=== PATIENT | male | born 1975 ===

== ENCOUNTER 2017-02-03 09:53 | Day surgery (SDC) | payer BC, OTHER ==
[2017-01-31 09:07] VITALS: BMI 34.0
[~2017-02-03 09:53] MED LIST: SODIUM CHLORIDE 0.9% 1,000 ML IV SCH
[2017-02-03 10:22] LABS: Glucose,Whole Blood 100 mg/dL (75-99)
[2017-02-03] MEDS ORDERED: SODIUM CHLORIDE 0.9% 500 ML IV ONE (10:54)
--- NOTE | 2017-02-03 11:52 | P.PCN ---
Preoperative Diagnosis: Twelve-lead ECG report Sinus mechanism heart rates 87 beats a minute normal [place] narrow QRS normal ST segments Tilt table test report Baseline blood pressure 157/80 mmHg Baseline heart rate 87 beats a minute patient was tilted upright at an angle of 70 per protocol there was a drop in blood pressure 207/72 mmHg and thereafter the blood pressure remained in the 120s. No syncope no increase in heart rate When he was laid supine his blood pressure increased by about 10 systolic points Impression Mild asymptomatic orthostatic hypotension syndrome consistent with his clinical symptoms Vision remained asymptomatic during the tilt table test Underlying diabetes, on an insulin pump, type I Chronic kidney disease stage V on peritoneal dialysis Anesthesia: none Disposition: same day
== END 2017-02-03 12:06 | disposition home or self-care (01) ==
LOC: CATHEP 09:53
PROVIDERS: ATTEND Internal Medicine Clinical Cardiac Electrophysiology
DX: I95.1 Orthostatic hypotension (principal); E10.22 Type 1 diabetes mellitus with diabetic chronic kidney disease; I12.0 Hypertensive chronic kidney disease with stage 5 chronic kidney disease or end stage renal disease; N18.6 End stage renal disease; E78.5 Hyperlipidemia, unspecified; G90.1 Familial dysautonomia [Riley-Day]; Z99.2 Dependence on renal dialysis; Z79.899 Other long term (current) drug therapy; Z79.4 Long term (current) use of insulin; Z96.41 Presence of insulin pump (external) (internal)
CPT/HCPCS: 93005; 93660

== ENCOUNTER 2020-10-01 14:19 | Inpatient (IN) | payer MEDICARE, OTHER ==
[2020-10-01 14:38] LABS: Glucose,Whole Blood 489 mg/dL (75-99)
--- NOTE | 2020-10-01 15:30 | XR ---
EXAMINATION TYPE: XR chest 2V DATE OF EXAM: 10/01/2020 COMPARISON: NONE HISTORY: Shortness of breath. TECHNIQUE: Frontal and lateral views of the chest are obtained. FINDINGS: There is a right IJ dialysis catheter with tip overlying the SVC/right atrial junction. The re is mild interstitial edema with associated hazy opacity. No pleural effusion, or pneumothorax seen . The cardiac silhouette size is mildly enlarged. The osseous structures are intact. IMPRESSION: Mild interstitial edema.
[2020-10-01] MEDS ORDERED: HYDROmorphone 0.5 MG/0.5 ML SYRINGE IVP STA ×2 (15:32→17:31)
[2020-10-01] MEDS ORDERED: INSULIN REGULAR 100 UNIT/ML VIAL SQ ONE (15:43)
--- NOTE | 2020-10-01 15:45 | ED ---
Abdominal Pain HPI - General Chief Complaint: Abdominal Pain Stated Complaint: abd pain, +Covid Time Seen by Provider: 10/01/20 14:46 Source: patient Mode of arrival: ambulatory Limitations: no limitations - History of Present Illness Initial Comments: 45-year-old dialysis patient (produces urine) with diabetes and recently diagnosed with [place] 19 who has been noncompliant the last 3 days with dialysis presenting today for cc of not feeling well, abdominal pain. Patient states that he tested positive for coag 19 last week he states initially was feeling okay now complaint of generalized body aches. Patient states she has had vomiting and upper abdominal pain. Patient states he could no longer tolerate that they'll pain and presented to the [facility] he states he was admitted but left against medical sales consultant he didn't think they knew what they were doing. patient denies chest pain, SOB. Patient denies headaches, visual changes or additional complaints. patient appears nontoxic on arrival. - Related Data Home Medications Medication Instructions Recorded Confirmed Atorvastatin [Lipitor] 40 mg PO HS 01/31/17 10/01/20 Cyclobenzaprine [Flexeril] 5 mg PO TID 01/31/17 10/01/20 Dialyvite 1 tab PO DAILY 01/31/17 10/01/20 Ergocalciferol [Vitamin D2] 50,000 unit PO Q14D 01/31/17 10/01/20 INSULIN LISPRO (For Pump) [humaLOG 0.01 units SQ-PUMP CONTINUOUS 01/31/17 10/01/20 (For Pump)] Magnesium Oxide [Mag-Ox] 400 mg PO DAILY 01/31/17 10/01/20 Midodrine [ProAmatine] 5 mg PO TID PRN 01/31/17 10/01/20 Omeprazole [PriLOSEC] 20 mg PO BID 01/31/17 10/01/20 Timolol [Betimol 0.5% Ophth Soln] 1 drop RIGHT EYE BID 01/31/17 10/01/20 Apixaban [Eliquis] 2.5 mg PO DAILY 10/01/20 10/01/20 Furosemide [Lasix] 80 mg PO BID 10/01/20 10/01/20 Heparin(Unknown Dose) 1 dose SQ Q48H 10/01/20 10/01/20 Pregabalin [Lyrica] 200 mg PO TID 10/01/20 10/01/20 amLODIPine [Norvasc] 2.5 mg PO DAILY 10/01/20 10/01/20 oxyCODONE-APAP 10-325MG [Percocet 1 tab PO Q4-6H PRN 10/01/20 10/01/20 10-325 mg] Allergies Allergy/AdvReac Type Severity Reaction Status Date / Time No Known Allergies Allergy Verified 10/01/20 17:29 Review of Systems ROS Statement: Those systems with pertinent positive or pertinent negative responses have been documented in the HPI. ROS Other: All systems not noted in ROS Statement are negative. Past Medical History Past Medical History: Diabetes Mellitus, Dialysis, GERD/Reflux, Hyperlipidemia, Renal Disease Additional Past Medical History / Comment(s): See Dr Freed H&P, peritoneal dialysis every night, constipation, anemia, kidney failure, History of Any Multi-Drug Resistant Organisms: None Reported Additional Past Surgical History / Comment(s): tom cataract, peritoneal dialysis catheter rt side, Past Anesthesia/Blood Transfusion Reactions: No Reported Reaction Past Psychological History: Anxiety Past Alcohol Use History: None Reported Past Drug Use History: None Reported - Past Family History Mother Family Medical History: Cancer General Exam - General Exam Comments Initial Comments: General: The patient is awake and alert Eye: +3 mm pupils are equal, round and reactive to light, extra-ocular movements are intact. No nystagmus. There is normal conjunctiva bilaterally. No signs of icterus. Ears, nose, mouth and throat: There are moist mucous membranes and no oral lesions. Neck: The neck is supple, there is no tenderness or JVD. Cardiovascular: There is a regular rate and rhythm. No murmur, rub or gallop is appreciated. Respiratory: Respirations are non-labored, breath sounds are equal. No wheezes, stridor. Occasional rhonchi, fine rales. Gastrointestinal: Soft, non-distended, epigastric tenderness to palpation of the abdomen, abdomen without masses or organomegaly noted. There is no rebound or guarding present. Musculoskeletal: Right BKA. Normal ROM, no tenderness. Strength 5/5. Sensation intact. Radial pulses equal bilaterally 2+. Neurological: A&O x 3. CN II-XII intact grossly, There are no obvious motor or sensory deficits. Coordination appears grossly intact. Speech is normal. Skin: Skin is warm and dry and no rashes or lesions are noted. Psychiatric: Cooperative, appropriate mood & affect, normal judgment. Limitations: no limitations Course Vital Signs 10/01/20 10/01/20 14:25 18:02 Temperature 97.9 F Pulse Rate 92 85 Respiratory 18 18 Rate Blood Pressure 107/72 137/80 O2 Sat by Pulse 98 97 Oximetry Medical Decision Making - Medical Decision Making Cr elevated. Electrolytes stable. Mild/moderate uremia. Pt does not appear confused. I discussed pt thinking it was april he states at times he feels off. no focal neurological deficits. mild/moderate fluid overload most likely secondary to noncompliance with dialysis. glucose elevated. BP stable. Lipase elevated with findings of pancreatitis on CT and epigastric pain, pt ordered NPO, GI on consult. Nephrology on consult pt will need dialysis in next 24 hours. Parvin Dominique agreeable to admission. As is patient for pancreatitis, mild uremia. - Lab Data Result diagrams: 10/01/20 16:16 10/01/20 16:16 Lab Results 10/01/20 10/01/20 10/01/20 Range/Units 14:36 15:34 16:16 WBC 15.1 H (3.8-10.6) k/uL RBC 3.82 L (4.30-5.90) m/uL Hgb 11.2 L (13.0-17.5) gm/dL Hct 35.4 L (39.0-53.0) % MCV 92.6 (80.0-100.0) fL MCH 29.3 (25.0-35.0) pg MCHC 31.7 (31.0-37.0) g/dL RDW 15.3 (11.5-15.5) % Plt Count 307 (150-450) k/uL MPV 8.8 Neutrophils % 90 % Lymphocytes % 4 % Monocytes % 4 % Eosinophils % 0 % Basophils % 1 % Neutrophils # 13.6 H (1.3-7.7) k/uL Lymphocytes # 0.6 L (1.0-4.8) k/uL Monocytes # 0.6 (0-1.0) k/uL Eosinophils # 0.1 (0-0.7) k/uL Basophils # 0.2 (0-0.2) k/uL Hypochromasia Slight PT (9.0-12.0) sec INR (<1.2) APTT (22.0-30.0) sec Sodium (137-145) mmol/L Potassium (3.5-5.1) mmol/L Chloride (98-107) mmol/L Carbon Dioxide (22-30) mmol/L Anion Gap mmol/L BUN (9-20) mg/dL Creatinine (0.66-1.25) mg/dL Est GFR (CKD-EPI)AfAm (>60 ml/min/1.73 sqM) Est GFR (CKD-EPI)NonAf (>60 ml/min/1.73 sqM) Glucose (74-99) mg/dL POC Glucose (mg/dL) 489 H (75-99) mg/dL POC Glu Nut Steamer ID Jacob Cavanaugh Calcium (8.4-10.2) mg/dL Magnesium (1.6-2.3) mg/dL Total Bilirubin (0.2-1.3) mg/dL AST (17-59) U/L ALT (4-49) U/L Alkaline Phosphatase (38-126) U/L Ammonia (<30) umol/L Troponin I (0.000-0.034) ng/mL Total Protein (6.3-8.2) g/dL Albumin (3.5-5.0) g/dL Lipase (23-300) U/L Urine Color Light Yellow Urine Appearance Clear (Clear) Urine pH 6.5 (5.0-8.0) Ur Specific [place] 1.009 (1.001-1.035) Urine Protein 2+ H (Negative) Urine Glucose (UA) 4+ H (Negative) Urine Ketones Negative (Negative) Urine Blood Small H (Negative) Urine Nitrite Negative (Negative) Urine Bilirubin Negative (Negative) Urine Urobilinogen <2.0 (<2.0) mg/dL Ur Leukocyte Esterase Small H (Negative) Urine RBC 7 H (0-5) /hpf Urine WBC 27 H (0-5) /hpf Hyaline Casts 1 (0-2) /lpf Urine Mucus Rare H (None) /hpf Urine Opiates Screen Not Detected (NotDetected) Ur Oxycodone Screen Detected H (NotDetected) Urine Methadone Screen Not Detected (NotDetected) Ur Propoxyphene Screen Not Detected (NotDetected) Ur Barbiturates Screen Not Detected (NotDetected) U Tricyclic Antidepress Not Detected (NotDetected) Ur Phencyclidine Scrn Not Detected (NotDetected) Ur Amphetamines Screen Not Detected (NotDetected) U Methamphetamines Scrn Not Detected (NotDetected) U Benzodiazepines Scrn Not Detected (NotDetected) Urine Cocaine Screen Not Detected (NotDetected) U Marijuana (THC) Screen Not Detected (NotDetected) 10/01/20 10/01/20 10/01/20 Range/Units 16:16 16:16 16:16 WBC (3.8-10.6) k/uL RBC (4.30-5.90) m/uL Hgb (13.0-17.5) gm/dL Hct (39.0-53.0) % MCV (80.0-100.0) fL MCH (25.0-35.0) pg MCHC (31.0-37.0) g/dL RDW (11.5-15.5) % Plt Count (150-450) k/uL MPV Neutrophils % % Lymphocytes % % Monocytes % % Eosinophils % % Basophils % % Neutrophils # (1.3-7.7) k/uL Lymphocytes # (1.0-4.8) k/uL Monocytes # (0-1.0) k/uL Eosinophils # (0-0.7) k/uL Basophils # (0-0.2) k/uL Hypochromasia PT 12.7 H (9.0-12.0) sec INR 1.3 H (<1.2) APTT 29.4 (22.0-30.0) sec Sodium 132 L (137-145) mmol/L Potassium 3.7 (3.5-5.1) mmol/L Chloride 93 L (98-107) mmol/L Carbon Dioxide 24 (22-30) mmol/L Anion Gap 15 mmol/L BUN 54 H (9-20) mg/dL Creatinine 9.22 H* (0.66-1.25) mg/dL Est GFR (CKD-EPI)AfAm 7 (>60 ml/min/1.73 sqM) Est GFR (CKD-EPI)NonAf 6 (>60 ml/min/1.73 sqM) Glucose 451 H (74-99) mg/dL POC Glucose (mg/dL) (75-99) mg/dL POC Glu Nut Steamer ID Calcium 7.9 L (8.4-10.2) mg/dL Magnesium 2.0 (1.6-2.3) mg/dL Total Bilirubin 0.5 (0.2-1.3) mg/dL AST 18 (17-59) U/L ALT 17 (4-49) U/L Alkaline Phosphatase 102 (38-126) U/L Ammonia <9 (<30) umol/L Troponin I (0.000-0.034) ng/mL Total Protein 6.5 (6.3-8.2) g/dL Albumin 3.3 L (3.5-5.0) g/dL Lipase 419 H (23-300) U/L Urine Color Urine Appearance (Clear) Urine pH (5.0-8.0) Ur Specific [place] (1.001-1.035) Urine Protein (Negative) Urine Glucose (UA) (Negative) Urine Ketones (Negative) Urine Blood (Negative) Urine Nitrite (Negative) Urine Bilirubin (Negative) Urine Urobilinogen (<2.0) mg/dL Ur Leukocyte Esterase (Negative) Urine RBC (0-5) /hpf Urine WBC (0-5) /hpf Hyaline Casts (0-2) /lpf Urine Mucus (None) /hpf Urine Opiates Screen (NotDetected) Ur Oxycodone Screen (NotDetected) Urine Methadone Screen (NotDetected) Ur Propoxyphene Screen (NotDetected) Ur Barbiturates Screen (NotDetected) U Tricyclic Antidepress (NotDetected) Ur Phencyclidine Scrn (NotDetected) Ur Amphetamines Screen (NotDetected) U Methamphetamines Scrn (NotDetected) U Benzodiazepines Scrn (NotDetected) Urine Cocaine Screen (NotDetected) U Marijuana (THC) Screen (NotDetected) 10/01/20 Range/Units 16:16 WBC (3.8-10.6) k/uL RBC (4.30-5.90) m/uL Hgb (13.0-17.5) gm/dL Hct (39.0-53.0) % MCV (80.0-100.0) fL MCH (25.0-35.0) pg MCHC (31.0-37.0) g/dL RDW (11.5-15.5) % Plt Count (150-450) k/uL MPV Neutrophils % % Lymphocytes % % Monocytes % % Eosinophils % % Basophils % % Neutrophils # (1.3-7.7) k/uL Lymphocytes # (1.0-4.8) k/uL Monocytes # (0-1.0) k/uL Eosinophils # (0-0.7) k/uL Basophils # (0-0.2) k/uL Hypochromasia PT (9.0-12.0) sec INR (<1.2) APTT (22.0-30.0) sec Sodium (137-145) mmol/L Potassium (3.5-5.1) mmol/L Chloride (98-107) mmol/L Carbon Dioxide (22-30) mmol/L Anion Gap mmol/L BUN (9-20) mg/dL Creatinine (0.66-1.25) mg/dL Est GFR (CKD-EPI)AfAm (>60 ml/min/1.73 sqM) Est GFR (CKD-EPI)NonAf (>60 ml/min/1.73 sqM) Glucose (74-99) mg/dL POC Glucose (mg/dL) (75-99) mg/dL POC Glu Nut Steamer ID Calcium (8.4-10.2) mg/dL Magnesium (1.6-2.3) mg/dL Total Bilirubin (0.2-1.3) mg/dL AST (17-59) U/L ALT (4-49) U/L Alkaline Phosphatase (38-126) U/L Ammonia (<30) umol/L Troponin I <0.012 (0.000-0.034) ng/mL Total Protein (6.3-8.2) g/dL Albumin (3.5-5.0) g/dL Lipase (23-300) U/L Urine Color Urine Appearance (Clear) Urine pH (5.0-8.0) Ur Specific [place] (1.001-1.035) Urine Protein (Negative) Urine Glucose (UA) (Negative) Urine Ketones (Negative) Urine Blood (Negative) Urine Nitrite (Negative) Urine Bilirubin (Negative) Urine Urobilinogen (<2.0) mg/dL Ur Leukocyte Esterase (Negative) Urine RBC (0-5) /hpf Urine WBC (0-5) /hpf Hyaline Casts (0-2) /lpf Urine Mucus (None) /hpf Urine Opiates Screen (NotDetected) Ur Oxycodone Screen (NotDetected) Urine Methadone Screen (NotDetected) Ur Propoxyphene Screen (NotDetected) Ur Barbiturates Screen (NotDetected) U Tricyclic Antidepress (NotDetected) Ur Phencyclidine Scrn (NotDetected) Ur Amphetamines Screen (NotDetected) U Methamphetamines Scrn (NotDetected) U Benzodiazepines Scrn (NotDetected) Urine Cocaine Screen (NotDetected) U Marijuana (THC) Screen (NotDetected) - EKG Data EKG Comments: Overall there is artifact however this appears to be normal sinus prolonged QT is present, no obvious ST elevation or depression. Ventricular rate 86 bpm, NH interval 132 ms, QR station 70 ms, QT/QTC 404/483ms Disposition Clinical Impression: Pancreatitis, Elevated BUN Disposition: ADMITTED IP TO THIS [facility] Condition: Stable Is patient prescribed a controlled substance at d/c from ED?: No Time of Disposition: 18:25 Decision to Admit Reason: Admit from EC Decision Date: 10/01/20 Decision Time: 18:25
[2020-10-01] MEDS: SODIUM CHLORIDE 0.9% 1,000 ML IV SCH (15:59)
[2020-10-01 16:27] LABS: Appearance,Urine Clear (Clear); Bilirubin,Urine Negative (Negative); Blood,Urine Small (Negative); Color,Urine Light Yellow; Glucose,Urine (UA) 4+ (Negative); Hyaline Casts,Urine 1 /lpf (0-2); Ketones,Urine Negative (Negative); Leukocyte Esterase,Urine Small (Negative); Mucus,Urine Rare /hpf; Nitrite,Urine Negative (Negative); PH, Urine 6.5 (5.0-8.0); Protein,Urine 2+ (Negative); RBC,Urine 7 /hpf (0-5); Specific Gravity,Urine 1.009 (1.001-1.035); Urobilinogen,Urine <2.0 mg/dL (<2.0); WBC,Urine 27 /hpf (0-5)
[2020-10-01 16:36] LABS: Amphetamine Screen,Urine Not Detected (NotDetected); Barbiturate Screen,Urine Not Detected (NotDetected); Benzodiazepines Screen,Urine Not Detected (NotDetected); Cocaine Screen,Urine Not Detected (NotDetected); Methadone Screen, Urine Not Detected (NotDetected); Opiate Screen,Urine Not Detected (NotDetected); Oxycodone Screen, Urine Detected (NotDetected); Phencyclidine Screen,Urine Not Detected (NotDetected); Tricyclic Antidepressant,Urine Not Detected (NotDetected); Urn Cannabinoid Scrn Not Detected (NotDetected)
[2020-10-01 16:38] LABS: Basophils # (A) 0.2 k/uL (0-0.2); Basophils % (A) 1 %; Eosinophils # (A) 0.1 k/uL (0-0.7); Eosinophils % (A) 0 %; HCT 35.4 % (39.0-53.0); HGB 11.2 gm/dL (13.0-17.5); Hypochromasia Slight; Lymphocytes # (A) 0.6 k/uL (1.0-4.8); Lymphocytes % (A) 4 %; MCH 29.3 pg (25.0-35.0); MCHC 31.7 g/dL (31.0-37.0); MCV 92.6 fL (80.0-100.0); Mean Platelet Volume 8.8; Monocytes # (A) 0.6 k/uL (0-1.0); Monocytes % (A) 4 %; Neutrophils # (A) 13.6 k/uL (1.3-7.7); Neutrophils % (A) 90 %; Platelet Count 307 k/uL (150-450); RBC 3.82 m/uL (4.30-5.90); RDW 15.3 % (11.5-15.5); WBC 15.1 k/uL (3.8-10.6)
[2020-10-01 16:43] LABS: INR 1.3 (<1.2); Partial Thromboplastin Time 29.4 sec (22.0-30.0); Prothrombin Time 12.7 sec (9.0-12.0)
[2020-10-01 16:53] LABS: Albumin 3.3 g/dL (3.5-5.0); Calcium 7.9 mg/dL (8.4-10.2); Potassium 3.7 mmol/L (3.5-5.1); Total Bilirubin 0.5 mg/dL (0.2-1.3); Total Protein 6.5 g/dL (6.3-8.2)
--- NOTE | 2020-10-01 17:05 | CT ---
EXAMINATION TYPE: CT abdomen pelvis wo con DATE OF EXAM: 10/01/2020 COMPARISON: CT 11/09/2015. HISTORY: diffuse abd pain CT DLP: 831.9 mGycm Automated exposure control for dose reduction was used. TECHNIQUE: Helical acquisition of images was performed from the lung bases through the pelvis. FINDINGS: LUNG BASES: Diffuse moderate patchy opacities in the visualized lung bases. LIVER/GB: No significant abnormality is appreciated. PANCREAS: Mild to moderate peripancreatic fat stranding. No evidence of pancreatic necrosis. SPLEEN: No significant abnormality is seen. ADRENALS: No significant abnormality is seen. KIDNEYS: Bilateral renal atrophy. No hydronephrosis or nephrolithiasis. FREE AIR: No free air is visualized RETROPERITONEAL ADENOPATHY: None visualized REPRODUCTIVE ORGANS: No significant abnormality is seen URINARY BLADDER: No significant abnormality is seen. PELVIC ADENOPATHY: None visualized. OSSEOUS STRUCTURES: No acute abnormality is seen. Chronic right lower fractures. BOWEL: No significant abnormality is seen. OTHER: None IMPRESSION: Mild to moderate peripancreatic fat stranding, consistent with acute pancreatitis without complicatio n. Recommend laboratory correlation. Diffuse moderate patchy bibasilar opacities, concerning for Covid pneumonia. Chronic findings as above.
[2020-10-01] MEDS ORDERED: NALOXONE 0.4 MG/ML 1 ML VIAL IV PRN (17:35)
[2020-10-01] MEDS ORDERED: MIDODRINE 5 MG TAB PO PRN (19:59)
[2020-10-01 21:13] LABS: Glucose,Whole Blood 334 mg/dL (75-99)
[2020-10-01] MEDS: CYCLOBENZAPRINE 5 MG TAB PO SCH (22:19)
[2020-10-01] MEDS: ATORVASTATIN 40 MG TAB PO SCH (22:19)
[2020-10-01] MEDS: PANTOPRAZOLE 40 MG TABLET PO SCH (22:19)
[2020-10-01] MEDS: TIMOLOL 0.5% OPHTH DROPS 5 ML BTL RIGHT EYE SCH (22:20)
[2020-10-01] MEDS: FUROSEMIDE 80 MG TAB PO SCH (22:20)
[2020-10-01] MEDS: HYDROmorphone 0.5 MG/0.5 ML SYRINGE IVP PRN (22:25)
[2020-10-02 00:58] LABS: Glucose,Whole Blood 240 mg/dL (75-99)
[2020-10-02] MEDS ORDERED: INSULIN DETEMIR (LEVEMIR) 100 UNIT/ML SYR SQ ONE (01:30)
[2020-10-02] MEDS: HYDROmorphone 0.5 MG/0.5 ML SYRINGE IVP PRN ×3 (02:22→14:02)
[2020-10-02] MEDS: SODIUM CHLORIDE 0.9% 1,000 ML IV SCH ×2 (06:13→11:53)
[2020-10-02 06:51] LABS: Glucose,Whole Blood 242 mg/dL (75-99)
[2020-10-02] MEDS: PANTOPRAZOLE 40 MG TABLET PO SCH ×2 (07:34→20:40)
[2020-10-02] MEDS: APIXABAN 2.5 MG TABLET PO SCH (07:34)
[2020-10-02] MEDS: CYCLOBENZAPRINE 5 MG TAB PO SCH ×3 (07:34→20:31)
[2020-10-02] MEDS: MAGNESIUM OXIDE 400 MG TAB PO SCH (07:34)
[2020-10-02] MEDS: PREGABALIN 100 MG CAP PO SCH (07:34)
[2020-10-02] MEDS: amLODIPine 2.5 MG TAB PO SCH (07:34)
[2020-10-02] MEDS: INSULIN ASPART (NovoLOG) 100 UNIT/ML VIAL SQ SCH ×4 (07:35→20:40)
[2020-10-02] MEDS: FUROSEMIDE 80 MG TAB PO SCH ×2 (07:35→16:44)
[2020-10-02] MEDS: FOLIC ACID-VIT B COMPLEX-VIT C 1 CAP PO SCH (07:35)
[2020-10-02] MEDS: TIMOLOL 0.5% OPHTH DROPS 5 ML BTL RIGHT EYE SCH ×2 (07:36→20:40)
[2020-10-02 09:44] LABS: Basophils % (A) 0 %; Eosinophils % (A) 0 %; HCT 36.5 % (39.0-53.0); HGB 11.4 gm/dL (13.0-17.5); Hypochromasia Slight; Lymphocytes % (A) 6 %; MCH 28.7 pg (25.0-35.0); MCHC 31.3 g/dL (31.0-37.0); MCV 91.8 fL (80.0-100.0); Mean Platelet Volume 9.3; Monocytes # (A) 0.7 k/uL (0-1.0); Monocytes % (A) 4 %; Neutrophils # (A) 14.4 k/uL (1.3-7.7); Neutrophils % (A) 88 %; Platelet Count 277 k/uL (150-450); RBC 3.98 m/uL (4.30-5.90); WBC 16.3 k/uL (3.8-10.6)
[2020-10-02 10:34] LABS: ALT 15 U/L (4-49); AST 34 U/L (17-59); African American GFR (CKD) 7 (>60 ml/min/1.73 sqM); Albumin/Globulin Ratio 0.9; Alkaline Phosphatase 92 U/L (38-126); Anion Gap 14 mmol/L; Blood Urea Nitrogen 62 mg/dL (9-20); Calcium 7.1 mg/dL (8.4-10.2); Carbon Dioxide 22 mmol/L (22-30); Chloride 98 mmol/L (98-107); Cholesterol 112 mg/dL (<200); Globulin 3.3 g/dL; Glucose 266 mg/dL (74-99); HDL Cholesterol 32 mg/dL (40-60); LDL Cholesterol,Calculated 25 mg/dL (0-99); Lipase 196 U/L (23-300); Non-African American GFR(CKD) 6 (>60 ml/min/1.73 sqM); Sodium 134 mmol/L (137-145); Total Bilirubin 0.8 mg/dL (0.2-1.3); Total Protein 6.3 g/dL (6.3-8.2); Triglycerides 274 mg/dL (<150)
[2020-10-02 10:39] LABS: Potassium 4.2 mmol/L (3.5-5.1)
[2020-10-02 11:45] LABS: Glucose,Whole Blood 294 mg/dL (75-99)
--- NOTE | 2020-10-02 12:21 | P.NPCON ---
History of Present Illness - Reason for Consult end stage renal disease - History of Present Illness Reason for consultation: End-stage renal disease History of present illness: Patient is a 45-year-old male seen in consultation for end-stage renal disease. He is maintained on home hemodialysis and performs dialysis at home 4-5 times a week. Patient states that he tested positive for cocaine 19 last week and was feeling fine. Over the last few days he developed worsening weakness as well as bodyaches and came to the hospital. He denies chest pain or shortness of breath. He is currently on room air. Blood pressure is stable. Denies vomiting. Does admit to loose bowel movements. No fever or chills. CAT scan of the abdomen and pelvis revealed mild to moderate peripancreatic fat stranding. Findings suggestive of pneumonia were noted. Patient has a history of diabetes mellitus. He has undergone right below the knee amputation in the past. Potassium level normal this morning. Vital signs are stable. General: The patient appeared well nourished and normally developed. HEENT: Head exam is unremarkable. Neck is without jugular venous distension. LUNGS: Breath sounds decreased. HEART: Rate and Rhythm are regular. ABDOMEN: Soft. EXTREMITITES: No edema. Right BKA noted. Past Medical History Past Medical History: Diabetes Mellitus, Dialysis, GERD/Reflux, Hyperlipidemia, Renal Disease Additional Past Medical History / Comment(s): See Dr Freed H&P, peritoneal dialysis every night, constipation, anemia, kidney failure, History of Any Multi-Drug Resistant Organisms: None Reported Additional Past Surgical History / Comment(s): tom cataract, peritoneal dialysis catheter rt side, Past Anesthesia/Blood Transfusion Reactions: No Reported Reaction Past Psychological History: Anxiety Smoking Status: Never smoker Past Alcohol Use History: None Reported Past Drug Use History: None Reported - Past Family History Mother Family Medical History: Cancer Medications and Allergies Home Medications Medication Instructions Recorded Confirmed Type Atorvastatin [Lipitor] 40 mg PO HS 01/31/17 10/01/20 History Cyclobenzaprine [Flexeril] 5 mg PO TID 01/31/17 10/01/20 History Dialyvite 1 tab PO DAILY 01/31/17 10/01/20 History Ergocalciferol [Vitamin D2] 50,000 unit PO Q14D 01/31/17 10/01/20 History INSULIN LISPRO (For Pump) [humaLOG 0.01 units SQ-PUMP CONTINUOUS 01/31/17 10/01/20 History (For Pump)] Magnesium Oxide [Mag-Ox] 400 mg PO DAILY 01/31/17 10/01/20 History Midodrine [ProAmatine] 5 mg PO TID PRN 01/31/17 10/01/20 History Omeprazole [PriLOSEC] 20 mg PO BID 01/31/17 10/01/20 History Timolol [Betimol 0.5% Ophth Soln] 1 drop RIGHT EYE BID 01/31/17 10/01/20 History Furosemide [Lasix] 80 mg PO BID 10/01/20 10/01/20 History Pregabalin [Lyrica] 200 mg PO TID 10/01/20 10/01/20 History amLODIPine [Norvasc] 2.5 mg PO DAILY 10/01/20 10/01/20 History oxyCODONE-APAP 10-325MG [Percocet 1 tab PO Q4-6H PRN 10/01/20 10/01/20 History 10-325 mg] Allergies Allergy/AdvReac Type Severity Reaction Status Date / Time No Known Allergies Allergy Verified 10/01/20 17:29 Physical Exam Vitals: Vital Signs Temp Pulse Pulse Resp BP BP Pulse Ox 10/02/20 09:46 98.7 F 72 20 100/61 94 L 10/02/20 07:40 92 17 10/02/20 05:45 98.4 F 92 17 105/69 99 10/02/20 02:15 98.4 F 91 18 110/58 91 L 10/01/20 19:35 97.5 F L 87 18 123/73 93 L 10/01/20 18:02 85 18 137/80 97 10/01/20 14:25 97.9 F 92 18 107/72 98 Intake and Output 10/01/20 10/02/20 10/02/20 22:59 06:59 14:59 Output Total 100 Balance -100 Output: Urine 100 Other: # Voids 1 Weight 94 kg Results - Lab Results Most recent lab results Calcium 7.1 mg/dL (8.4-10.2) L 10/02/20 08:51 Magnesium 2.0 mg/dL (1.6-2.3) 10/01/20 16:16 10/02/20 08:51 10/02/20 08:51 Assessment and Plan Plan: Assessment: 1. End-stage renal disease maintained on home hemodialysis. 2. Covid 19 infection. 3. Diabetes mellitus. 4. Status post right BKA. Plan: Hemodialysis today. Check phosphorus and magnesium level. Hold amlodipine for systolic blood pressure less than 120. Thank you for the consultation. I will continue to follow the patient with you during his hospital stay.
[2020-10-02] MEDS ORDERED: ALTEPLASE 2 MG VIAL (CATHFLO) IV STA ×2 (15:31→15:32)
--- NOTE | 2020-10-02 17:02 | CONS ---
CONSULTATION DATE OF SERVICE: 10/02/2020 REASON FOR CONSULTATION: Epigastric pain, elevated lipase. HISTORY OF PRESENT ILLNESS: The patient is a 45-year-old white male with history of end-stage renal disease on hemodialysis for the last couple of years duration who performed hemodialysis 3 times a week who was recently diagnosed with COVID-19 infection for which he was hospitalized at [facility] 2 weeks ago. He presents to the hospital, not feeling well, epigastric discomfort, some nausea but no emesis. He came in to the emergency room, had a couple of episodes of nausea, vomiting and was noted to have mild elevation of lipase of 434. CT of the abdomen and pelvis done that showed peripancreatic examination consistent with acute pancreatitis. The patient is feeling better today. He still has some epigastric pain, but no nausea, vomiting. He never had pancreatitis in the past. No history of alcohol use. PAST MEDICAL HISTORY: Significant for diabetes mellitus, end-stage renal disease, on home hemodialysis, history of GERD, hypertension, hyperlipidemia. PAST SURGICAL HISTORY: Bilateral cataract surgery, peritoneal dialysis catheter in the past. MEDICATIONS: At home include Flexeril, Lipitor, DioLite, vitamin D2, magnesium, , Prilosec, Eliquis, Lasix, Lyrica, Norvasc, Percocet, insulin. ALLERGIES: None. SOCIAL HISTORY: Remote history of smoking. No alcohol use. FAMILY HISTORY: Mother had some kind of cancer. REVIEW OF SYSTEMS: CARDIOPULMONARY: No chest pain, no shortness of breath. GI: No diarrhea. ; No dysuria, hematuria. MUSCULOSKELETAL: Unremarkable. SKIN: Unremarkable. ENDOCRINE: Long-standing history of diabetes mellitus. HEMATOLOGY: Mild anemia. NEUROLOGY: Unremarkable. CONSTITUTIONAL: Fatigue< weakness, no fever, chills, night sweats. Infectious disease recent COVID-19 infection. PHYSICAL EXAMINATION: He appears comfortable, no apparent distress. Vital signs are stable. Blood pressure 100/61, pulse is 72, temperature 98.7. HEENT: Examination unremarkable. Conjunctivae are pink, sclerae nonicteric. Oral cavity no lesions. NECK: No JVD or lymph node enlargement. CHEST: Was not auscultated. ABDOMEN: Soft, there was very minimal tenderness in the epigastric area. The abdomen was benign. EXTREMITIES: Right below-knee amputation. No pedal edema. NEUROLOGIC: Alert and oriented x3. No focal deficits. LABS: From yesterday WBC 15.1, hemoglobin 11.2 platelets normal, PT/INR 1.3. BUN 54, creatinine 9.22. Lipase was 419 and today it is 196. AST, ALT, T-bilirubin and alkaline phosphatase are normal, today WBC is 16.3, hemoglobin 11.4. CT of the abdomen and pelvis done in the emergency room yesterday did show changes in the pancreas and mild to moderate peripancreatic fat stranding consistent with acute pancreatitis. Diffuse moderate patchy bilateral opacities concerning for COVID-19 pneumonia. IMPRESSION: 1. Epigastric pain associated with nausea vomiting for the last 3-4 days and mild elevation of lipase with CAT scan showing changes in the pancreas consistent with acute pancreatitis, which is gradually improving. 2. COVID-19 pneumonia. 3. History of end-stage renal disease, on hemodialysis. 4. History of atrial fibrillation on Eliquis. 5. Peripheral vascular disease. 6. Longstanding history of diabetes mellitus. RECOMMENDATIONS: 1. Start him on a clear liquid diet. 2. Protonix 40 mg daily. 3. Advance diet as tolerated. 4. Continue with symptomatic and supportive care. 5. Will follow with you closely. Thank you for this consultation. MMODL / IJN: [id number] /
[2020-10-02 17:08] LABS: Glucose,Whole Blood 170 mg/dL (75-99)
[2020-10-02 20:06] LABS: Glucose,Whole Blood 236 mg/dL (75-99)
[2020-10-02] MEDS: ATORVASTATIN 40 MG TAB PO SCH (20:40)
[2020-10-02] MEDS ORDERED: LACTULOSE 20 GM/30 ML CUP PO ONE (22:35)
--- NOTE | 2020-10-02 22:36 | P.HPIM ---
History of Present Illness H&P Date: 10/02/20 Chief Complaint: Abdominal pain History of presenting complaint: This is a 45-year-old patient of Dr. cox from [place]. Chronic stable medical conditions include diabetes mellitus, GERD, hyperlipidemia,. Patient is on insulin pump. Patient is on home hemodialysis and performs the same 4-5 times a week. Patient had tested positive for COVID of weeks ago and was admitted to [facility]. He was being treated that. His sugars were running very high. Patient is unable to use his insulin pump. Nursing staff and tried to contact patient's sister but could not be reached. Endocrinology Dr. Saxena was consulted. Patient had decided to leave AMA. This was 2 nights ago Patient now presents to the ER here for 3 days of increasing epigastric pain. Does not radiate. Denies any nausea vomiting. Decreased oral intake. Has not had a bowel movement for 4-5 days. Denies any fever and chills. No shortness of breath. He states he not able to do his home hemodialysis because the catheter not working. He has a right infraclavicular dialysis catheter. Patient also has a right below-knee amputation done at the outside hospital. Stump is healing well. Last night the admitting nurse had called me from the floor stating that patient was not able uses pump. This morning the patient tells me he has no probably using his pump. He had ran into a similar situation at [facility] Review of systems: GEN.: Tired EYES: None HEENT: None NECK: None RESPIRATORY: None CARDIOVASCULAR: None GASTROINTESTINAL: As above GENITOURINARY: None MUSCULOSKELETAL: Right below-knee amputation LYMPHATICS: None HEMATOLOGICAL: None PSYCHIATRY: None NEUROLOGICAL: None Past medical history to include: Diabetes on insulin pump, end-stage kidney disease on home hemodialysis 4-5 times a week, GERD, hyperlipidemia, right below-knee amputation anemia of chronic kidney disease Social history: Lives with his 18-year-old son. No alcohol or smoking. Physical examination: VITAL SIGNS: 97.9, 92, 18, 107/72, 98% room air-upon presentation GENERAL: BMI 37.9, laying in bed, not in distress. EYES: Pupils equal. Conjunctiva normal. HEENT: External appearance of nose and ears normal, oral cavity grossly normal. NECK: JVD not raised; masses not palpable. HEART: First and second heart sounds are normal; no edema. LUNGS: Respiratory rate normal; clear to auscultation. ABDOMEN: Soft, mild epigastric tenderness, no guarding rigidity, liver spleen not palpable, no masses palpable. PSYCH: Alert and oriented x3; mood and affect normal. MUSCULOSKELETAL: Right below-knee amputation. Healing scars on the right stump dry NEUROLOGICAL: Cranial nerves grossly intact; no facial asymmetry, power and sensation grossly intact. LYMPHATICS: No lymph nodes palpable in the axilla and neck INVESTIGATIONS, reviewed in the clinical context: White count 15.1 hemoglobin 11.2 platelets 307 potassium 3.7 creatinine 9.2 to Lipase 419 Urine drug screen positive for oxycodone EKG tracing personally reviewed by me-normal sinus rhythm Computed tomography scan of the abdomen-mild to moderate peripancreatic fat stranding, diffuse moderately patchy basilar opacities Assessment: -Acute pancreatitis. Patient does not have any have any history of alcoholism. -End-stage kidney disease on home hemodialysis with the right infraclavicular dialysis catheter -Anemia of chronic disease due to chronic kidney disease -Right below-knee amputation with a healing stump -Bilateral COVID 19 pneumonia, recently diagnosed. Patient's pulse oxing well in room air. -Diabetes mellitus, insulin requiring, patient's insulin pump. Uncontrolled with hyperglycemia Plan: Nephrology was consulted for hemodialysis. GI was consulted. Patient is on clear liquids. Discussed with the nurse. We'll have the patient resume his insulin pump. Otherwise he'll continue with long-acting and short-acting insulin. Patient is due for hemodialysis today. Droplet precautions Past Medical History Past Medical History: Diabetes Mellitus, Dialysis, GERD/Reflux, Hyperlipidemia, Renal Disease Additional Past Medical History / Comment(s): See Dr Freed H&P, peritoneal dialysis every night, constipation, anemia, kidney failure, History of Any Multi-Drug Resistant Organisms: None Reported Additional Past Surgical History / Comment(s): tom cataract, peritoneal dialysis catheter rt side, Past Anesthesia/Blood Transfusion Reactions: No Reported Reaction Past Psychological History: Anxiety Smoking Status: Never smoker Past Alcohol Use History: None Reported Past Drug Use History: None Reported - Past Family History Mother Family Medical History: Cancer Medications and Allergies Home Medications Medication Instructions Recorded Confirmed Type Atorvastatin [Lipitor] 40 mg PO HS 01/31/17 10/01/20 History Cyclobenzaprine [Flexeril] 5 mg PO TID 01/31/17 10/01/20 History Dialyvite 1 tab PO DAILY 01/31/17 10/01/20 History Ergocalciferol [Vitamin D2] 50,000 unit PO Q14D 01/31/17 10/01/20 History INSULIN LISPRO (For Pump) [humaLOG 0.01 units SQ-PUMP CONTINUOUS 01/31/17 10/01/20 History (For Pump)] Magnesium Oxide [Mag-Ox] 400 mg PO DAILY 01/31/17 10/01/20 History Midodrine [ProAmatine] 5 mg PO TID PRN 01/31/17 10/01/20 History Omeprazole [PriLOSEC] 20 mg PO BID 01/31/17 10/01/20 History Timolol [Betimol 0.5% Ophth Soln] 1 drop RIGHT EYE BID 01/31/17 10/01/20 History Furosemide [Lasix] 80 mg PO BID 10/01/20 10/01/20 History Pregabalin [Lyrica] 200 mg PO TID 10/01/20 10/01/20 History amLODIPine [Norvasc] 2.5 mg PO DAILY 10/01/20 10/01/20 History oxyCODONE-APAP 10-325MG [Percocet 1 tab PO Q4-6H PRN 10/01/20 10/01/20 History 10-325 mg] Allergies Allergy/AdvReac Type Severity Reaction Status Date / Time No Known Allergies Allergy Verified 10/01/20 17:29 Physical Exam Vitals: Vital Signs Temp Pulse Pulse Resp BP BP Pulse Ox 10/02/20 09:46 98.7 F 72 20 100/61 94 L 10/02/20 07:40 92 17 10/02/20 05:45 98.4 F 92 17 105/69 99 10/02/20 02:15 98.4 F 91 18 110/58 91 L 10/01/20 19:35 97.5 F L 87 18 123/73 93 L 10/01/20 18:02 85 18 137/80 97 10/01/20 14:25 97.9 F 92 18 107/72 98 Intake and Output 10/01/20 10/02/20 10/02/20 22:59 06:59 14:59 Output Total 100 Balance -100 Output: Urine 100 Other: # Voids 1 Weight 94 kg Results CBC & Chem 7: 10/02/20 08:51 10/02/20 08:51 Labs: Abnormal Lab Results - Last 24 Hours (Table) 10/01/20 10/01/20 10/01/20 Range/Units 14:36 15:34 16:16 WBC 15.1 H (3.8-10.6) k/uL RBC 3.82 L (4.30-5.90) m/uL Hgb 11.2 L (13.0-17.5) gm/dL Hct 35.4 L (39.0-53.0) % RDW (11.5-15.5) % Neutrophils # 13.6 H (1.3-7.7) k/uL Lymphocytes # 0.6 L (1.0-4.8) k/uL PT (9.0-12.0) sec INR (<1.2) Sodium (137-145) mmol/L Chloride (98-107) mmol/L BUN (9-20) mg/dL Creatinine (0.66-1.25) mg/dL Glucose (74-99) mg/dL POC Glucose (mg/dL) 489 H (75-99) mg/dL Calcium (8.4-10.2) mg/dL Albumin (3.5-5.0) g/dL Triglycerides (<150) mg/dL HDL Cholesterol (40-60) mg/dL Lipase (23-300) U/L Urine Protein 2+ H (Negative) Urine Glucose (UA) 4+ H (Negative) Urine Blood Small H (Negative) Ur Leukocyte Esterase Small H (Negative) Urine RBC 7 H (0-5) /hpf Urine WBC 27 H (0-5) /hpf Urine Mucus Rare H (None) /hpf Ur Oxycodone Screen Detected H (NotDetected) 10/01/20 10/01/20 10/01/20 Range/Units 16:16 16:16 21:11 WBC (3.8-10.6) k/uL RBC (4.30-5.90) m/uL Hgb (13.0-17.5) gm/dL Hct (39.0-53.0) % RDW (11.5-15.5) % Neutrophils # (1.3-7.7) k/uL Lymphocytes # (1.0-4.8) k/uL PT 12.7 H (9.0-12.0) sec INR 1.3 H (<1.2) Sodium 132 L (137-145) mmol/L Chloride 93 L (98-107) mmol/L BUN 54 H (9-20) mg/dL Creatinine 9.22 H* (0.66-1.25) mg/dL Glucose 451 H (74-99) mg/dL POC Glucose (mg/dL) 334 H (75-99) mg/dL Calcium 7.9 L (8.4-10.2) mg/dL Albumin 3.3 L (3.5-5.0) g/dL Triglycerides (<150) mg/dL HDL Cholesterol (40-60) mg/dL Lipase 419 H (23-300) U/L Urine Protein (Negative) Urine Glucose (UA) (Negative) Urine Blood (Negative) Ur Leukocyte Esterase (Negative) Urine RBC (0-5) /hpf Urine WBC (0-5) /hpf Urine Mucus (None) /hpf Ur Oxycodone Screen (NotDetected) 10/02/20 10/02/20 10/02/20 Range/Units 00:56 06:49 08:51 WBC 16.3 H (3.8-10.6) k/uL RBC 3.98 L (4.30-5.90) m/uL Hgb 11.4 L (13.0-17.5) gm/dL Hct 36.5 L (39.0-53.0) % RDW 16.0 H (11.5-15.5) % Neutrophils # 14.4 H (1.3-7.7) k/uL Lymphocytes # (1.0-4.8) k/uL PT (9.0-12.0) sec INR (<1.2) Sodium (137-145) mmol/L Chloride (98-107) mmol/L BUN (9-20) mg/dL Creatinine (0.66-1.25) mg/dL Glucose (74-99) mg/dL POC Glucose (mg/dL) 240 H 242 H (75-99) mg/dL Calcium (8.4-10.2) mg/dL Albumin (3.5-5.0) g/dL Triglycerides (<150) mg/dL HDL Cholesterol (40-60) mg/dL Lipase (23-300) U/L Urine Protein (Negative) Urine Glucose (UA) (Negative) Urine Blood (Negative) Ur Leukocyte Esterase (Negative) Urine RBC (0-5) /hpf Urine WBC (0-5) /hpf Urine Mucus (None) /hpf Ur Oxycodone Screen (NotDetected) 10/02/20 Range/Units 08:51 WBC (3.8-10.6) k/uL RBC (4.30-5.90) m/uL Hgb (13.0-17.5) gm/dL Hct (39.0-53.0) % RDW (11.5-15.5) % Neutrophils # (1.3-7.7) k/uL Lymphocytes # (1.0-4.8) k/uL PT (9.0-12.0) sec INR (<1.2) Sodium 134 L (137-145) mmol/L Chloride (98-107) mmol/L BUN 62 H (9-20) mg/dL Creatinine 9.80 H* (0.66-1.25) mg/dL Glucose 266 H (74-99) mg/dL POC Glucose (mg/dL) (75-99) mg/dL Calcium 7.1 L (8.4-10.2) mg/dL Albumin 3.0 L (3.5-5.0) g/dL Triglycerides 274 H (<150) mg/dL HDL Cholesterol 32 L (40-60) mg/dL Lipase (23-300) U/L Urine Protein (Negative) Urine Glucose (UA) (Negative) Urine Blood (Negative) Ur Leukocyte Esterase (Negative) Urine RBC (0-5) /hpf Urine WBC (0-5) /hpf Urine Mucus (None) /hpf Ur Oxycodone Screen (NotDetected) Microbiology - Last 24 Hours (Table) 10/01/20 15:34 Urine Culture - Preliminary Urine,Voided Thrombosis Risk Factor Assmnt - Choose All That Apply Any of the Below Risk Factors Present?: Yes Each Factor Represents 1 point: Age 41-60 years Thrombosis Risk Factor Assessment Total Risk Factor Score: 1 Thrombosis Risk Factor Assessment Level: Low Risk
[2020-10-03] MEDS: oxyCODONE-APAP 10-325MG 1 EACH TAB PO PRN ×4 (00:22→21:45)
[2020-10-03 03:04] LABS: Glucose,Whole Blood 374 mg/dL (75-99)
[2020-10-03 06:50] LABS: Glucose,Whole Blood 354 mg/dL (75-99)
[2020-10-03 07:09] LABS: HCT 33.3 % (39.0-53.0); MCH 28.3 pg (25.0-35.0); MCHC 30.2 g/dL (31.0-37.0); MCV 93.7 fL (80.0-100.0); RBC 3.55 m/uL (4.30-5.90); RDW 15.9 % (11.5-15.5); WBC 11.4 k/uL (3.8-10.6)
[2020-10-03 07:10] LABS: Basophils % (A) 0 %; Eosinophils # (A) 0.1 k/uL (0-0.7); Eosinophils % (A) 1 %; Hypochromasia Moderate; Lymphocytes # (A) 1.1 k/uL (1.0-4.8); Lymphocytes % (A) 10 %; Mean Platelet Volume 9.3; Monocytes # (A) 0.5 k/uL (0-1.0); Monocytes % (A) 4 %; Neutrophils # (A) 9.5 k/uL (1.3-7.7); Neutrophils % (A) 83 %; Platelet Count 281 k/uL (150-450)
[2020-10-03] MEDS: amLODIPine 2.5 MG TAB PO SCH ×2 (07:16→08:25)
[2020-10-03] MEDS: PREGABALIN 100 MG CAP PO SCH (07:16)
[2020-10-03] MEDS: CYCLOBENZAPRINE 5 MG TAB PO SCH ×3 (07:16→21:42)
[2020-10-03] MEDS: FOLIC ACID-VIT B COMPLEX-VIT C 1 CAP PO SCH (07:16)
[2020-10-03] MEDS: APIXABAN 2.5 MG TABLET PO SCH (07:16)
[2020-10-03] MEDS: MAGNESIUM OXIDE 400 MG TAB PO SCH (07:16)
[2020-10-03] MEDS: PANTOPRAZOLE 40 MG TABLET PO SCH ×2 (07:16→21:42)
[2020-10-03] MEDS: FUROSEMIDE 80 MG TAB PO SCH ×2 (07:17→16:35)
[2020-10-03] MEDS: TIMOLOL 0.5% OPHTH DROPS 5 ML BTL RIGHT EYE SCH ×2 (07:17→21:42)
[2020-10-03] MEDS: INSULIN ASPART (NovoLOG) 100 UNIT/ML VIAL SQ SCH ×2 (07:17→20:17)
--- NOTE | 2020-10-03 10:28 | P.PN ---
Subjective Patient is seen in follow-up for end-stage renal disease. He is maintained on home hemodialysis. Underwent dialysis yesterday with 1 L ultrafiltration. His dialysis catheter was clotting. Feels better today overall. Denies chest pain or shortness of breath. Vital signs are stable. General: The patient appeared well nourished and normally developed. HEENT: Head exam is unremarkable. Neck is without jugular venous distension. LUNGS: Breath sounds decreased. HEART: Rate and Rhythm are regular. ABDOMEN: Soft, nontender. EXTREMITITES: No edema. BKA noted. Objective - Vital Signs Vital signs: Vital Signs Temp 97.3 F L 10/03/20 09:57 Pulse 90 10/03/20 09:57 Resp 18 10/03/20 09:57 BP 96/57 10/03/20 09:57 Pulse Ox 99 10/03/20 09:57 Intake & Output 10/02/20 10/03/20 10/03/20 18:59 06:59 18:59 Intake Total 600 Output Total 1000 Balance -400 Intake: Intake, IV Titration 600 Amount Sodium Chloride 0.9% 1, 600 000 ml @ 50 mls/hr IV . Q20H [facility] Rx#:[id number] Output: Hemodialysis 1000 Other: Voiding Method Urinal Urinal # Voids 1 - Labs CBC & Chem 7: 10/03/20 06:45 10/02/20 08:51 Labs: Abnormal Lab Results - Last 24 Hours (Table) 10/01/20 10/02/20 10/02/20 Range/Units 16:16 08:51 11:44 WBC (3.8-10.6) k/uL RBC (4.30-5.90) m/uL Hgb (13.0-17.5) gm/dL Hct (39.0-53.0) % MCHC (31.0-37.0) g/dL RDW (11.5-15.5) % Neutrophils # (1.3-7.7) k/uL Sodium 134 L (137-145) mmol/L BUN 62 H (9-20) mg/dL Creatinine 9.80 H* (0.66-1.25) mg/dL Glucose 266 H (74-99) mg/dL POC Glucose (mg/dL) 294 H (75-99) mg/dL Calcium 7.1 L (8.4-10.2) mg/dL Albumin 3.0 L (3.5-5.0) g/dL Triglycerides 274 H (<150) mg/dL HDL Cholesterol 32 L (40-60) mg/dL BRIELLE Screen POSITIVE A (NEGATIVE) 10/02/20 10/02/20 10/03/20 Range/Units 17:05 20:05 03:02 WBC (3.8-10.6) k/uL RBC (4.30-5.90) m/uL Hgb (13.0-17.5) gm/dL Hct (39.0-53.0) % MCHC (31.0-37.0) g/dL RDW (11.5-15.5) % Neutrophils # (1.3-7.7) k/uL Sodium (137-145) mmol/L BUN (9-20) mg/dL Creatinine (0.66-1.25) mg/dL Glucose (74-99) mg/dL POC Glucose (mg/dL) 170 H 236 H 374 H (75-99) mg/dL Calcium (8.4-10.2) mg/dL Albumin (3.5-5.0) g/dL Triglycerides (<150) mg/dL HDL Cholesterol (40-60) mg/dL BRIELLE Screen (NEGATIVE) 10/03/20 10/03/20 Range/Units 06:45 06:48 WBC 11.4 H (3.8-10.6) k/uL RBC 3.55 L (4.30-5.90) m/uL Hgb 10.0 L (13.0-17.5) gm/dL Hct 33.3 L (39.0-53.0) % MCHC 30.2 L (31.0-37.0) g/dL RDW 15.9 H (11.5-15.5) % Neutrophils # 9.5 H (1.3-7.7) k/uL Sodium (137-145) mmol/L BUN (9-20) mg/dL Creatinine (0.66-1.25) mg/dL Glucose (74-99) mg/dL POC Glucose (mg/dL) 354 H (75-99) mg/dL Calcium (8.4-10.2) mg/dL Albumin (3.5-5.0) g/dL Triglycerides (<150) mg/dL HDL Cholesterol (40-60) mg/dL BRIELLE Screen (NEGATIVE) Microbiology - Last 24 Hours (Table) 10/01/20 15:34 Urine Culture - Final Urine,Voided Assessment and Plan Plan: Assessment: 1. End-stage renal disease maintained on home hemodialysis. 2. Covid 19 infection. 3. Diabetes mellitus. 4. Status post right BKA. 5. Clotted permacath. 6. Acute pancreatitis. GI following. Plan: Short hemodialysis treatment today - if the catheter clots, will need the permacath exchanged. Follow-up phosphorus level. Hold amlodipine for systolic blood pressure less than 120.
[2020-10-03 10:35] LABS: IgG Subclass 3 51.1 mg/dL (11.0-85.0)
[2020-10-03 10:40] LABS: IgG Subclass 4 32.8 mg/dL (3.0-175.0)
[2020-10-03 11:35] LABS: Glucose,Whole Blood 568 mg/dL (75-99)
[2020-10-03 11:35] LABS: Glucose,Whole Blood 549 mg/dL (75-99)
[2020-10-03] MEDS ORDERED: INSPUCOR MISCELLANE PRN ×2 (12:26→13:25)
[2020-10-03] MEDS ORDERED: INSULIN ASPART (NovoLOG) 100 UNIT/ML VIAL SQ PRN ×2 (12:26→13:25)
[2020-10-03] MEDS: INSULIN PUMP MEAL BOLUS 1 UNIT MISC MISCELLANE SCH ×3 (12:30→17:42)
[2020-10-03] MEDS ORDERED: INSULIN ASPART (NovoLOG) 100 UNIT/ML VIAL SQ ONE (13:06)
[2020-10-03 13:25] LABS: African American GFR (CKD) 10.3 (60.0-200.0); Anion Gap 16.1 mmol/L (4.00-12.00); BUN/Creat Ratio 6.09 Ratio (12.00-20.00); Calcium 7.1 mg/dL (8.7-10.3); Carbon Dioxide 17.9 mmol/L (21.6-31.8); Magnesium 1.9 mg/dL (1.5-2.4); Non-African American GFR(CKD) 8.9 (60.0-200.0); Potassium 4.1 mmol/L (3.5-5.5)
--- NOTE | 2020-10-03 13:44 | P.PN ---
Subjective Progress Note Date: 10/03/20 Principal diagnosis: Epigastric pain, elevated lipase A 45-year-old patient with a history of end-stage renal disease on hemodialysis for the last couple years duration. He is scheduled for hemodialysis 3 times a week, he was recently diagnosed with Covid-19 infection for which he was hospitalized at [facility] 2 weeks ago. Presented to the hospital not feeling well with epigastric discomfort, some nausea but no emesis. Upon admission he had mild elevation of his lipase at 434, CT of the abdomen and pelvis showed very pancreatic examination consistent with acute pancreatitis. The patient states he's feeling much better today, denies any abdominal pain, nausea, or vomiting. He had no acute changes through the night. Objective - Vital Signs Vital signs: Vital Signs Temp 97.3 F L 10/03/20 09:57 Pulse 90 10/03/20 09:57 Resp 18 10/03/20 09:57 BP 96/57 10/03/20 09:57 Pulse Ox 99 10/03/20 09:57 Intake & Output 10/02/20 10/03/20 10/03/20 18:59 06:59 18:59 Intake Total 600 Output Total 1000 Balance -400 Intake: Intake, IV Titration 600 Amount Sodium Chloride 0.9% 1, 600 000 ml @ 50 mls/hr IV . Q20H [facility] Rx#:[id number] Output: Hemodialysis 1000 Other: Voiding Method Urinal Urinal # Voids 1 - Exam General appearance: The patient is alert, oriented, in no acute distress. HET: Head is normocephalic and atraumatic. Conjunctiva pink. Sclera anicteric. Neck: Supple without lymphadenopathy. Abdomen: Soft, minimal epigastric tenderness, nondistended with bowel sounds. No guarding or rigidity. Extremities: Normal skin color and turgor. No pedal edema Neurological: No focal deficits. Alert and oriented 3. - Labs CBC & Chem 7: 10/03/20 06:45 10/03/20 06:45 Labs: Abnormal Lab Results - Last 24 Hours (Table) 10/01/20 10/02/20 10/02/20 Range/Units 16:16 17:05 20:05 WBC (3.8-10.6) k/uL RBC (4.30-5.90) m/uL Hgb (13.0-17.5) gm/dL Hct (39.0-53.0) % MCHC (31.0-37.0) g/dL RDW (11.5-15.5) % Neutrophils # (1.3-7.7) k/uL Carbon Dioxide (21.6-31.8) mmol/L Anion Gap (4.00-12.00) mmol/L BUN (9.0-27.0) mg/dL Creatinine (0.6-1.5) mg/dL Est GFR (CKD-EPI)AfAm (60.0-200.0) Est GFR (CKD-EPI)NonAf (60.0-200.0) BUN/Creatinine Ratio (12.00-20.00) Ratio Glucose (70-110) mg/dL POC Glucose (mg/dL) 170 H 236 H (75-99) mg/dL Calcium (8.7-10.3) mg/dL BRIELLE Screen POSITIVE A (NEGATIVE) 10/03/20 10/03/20 10/03/20 Range/Units 03:02 06:45 06:45 WBC 11.4 H (3.8-10.6) k/uL RBC 3.55 L (4.30-5.90) m/uL Hgb 10.0 L (13.0-17.5) gm/dL Hct 33.3 L (39.0-53.0) % MCHC 30.2 L (31.0-37.0) g/dL RDW 15.9 H (11.5-15.5) % Neutrophils # 9.5 H (1.3-7.7) k/uL Carbon Dioxide 17.9 L (21.6-31.8) mmol/L Anion Gap 16.10 H (4.00-12.00) mmol/L BUN 42.0 H (9.0-27.0) mg/dL Creatinine 6.9 H (0.6-1.5) mg/dL Est GFR (CKD-EPI)AfAm 10.3 L (60.0-200.0) Est GFR (CKD-EPI)NonAf 8.9 L (60.0-200.0) BUN/Creatinine Ratio 6.09 L (12.00-20.00) Ratio Glucose 380 H (70-110) mg/dL POC Glucose (mg/dL) 374 H (75-99) mg/dL Calcium 7.1 L (8.7-10.3) mg/dL BRIELLE Screen (NEGATIVE) 10/03/20 10/03/20 10/03/20 Range/Units 06:48 11:32 11:33 WBC (3.8-10.6) k/uL RBC (4.30-5.90) m/uL Hgb (13.0-17.5) gm/dL Hct (39.0-53.0) % MCHC (31.0-37.0) g/dL RDW (11.5-15.5) % Neutrophils # (1.3-7.7) k/uL Carbon Dioxide (21.6-31.8) mmol/L Anion Gap (4.00-12.00) mmol/L BUN (9.0-27.0) mg/dL Creatinine (0.6-1.5) mg/dL Est GFR (CKD-EPI)AfAm (60.0-200.0) Est GFR (CKD-EPI)NonAf (60.0-200.0) BUN/Creatinine Ratio (12.00-20.00) Ratio Glucose (70-110) mg/dL POC Glucose (mg/dL) 354 H 568 H 549 H (75-99) mg/dL Calcium (8.7-10.3) mg/dL BRIELLE Screen (NEGATIVE) Microbiology - Last 24 Hours (Table) 10/01/20 15:34 Urine Culture - Final Urine,Voided Assessment and Plan Assessment: 1. Epigastric pain associated with nausea and vomiting for the last 3-4 days and mild elevation of lipase with the computed tomography scan showing changes in the pancreas consistent with acute pancreatitis which continues to improve 2. CoVid-19 pneumonia 3. Streaky end-stage renal disease, on hemodialysis 4. History of atrial fibrillation on Eliquis 5. Peripheral vascular disease 6. Long-standing history of diabetes mellitus Plan: 1. Advance to consistent carbohydrate/renal diet 2. Protonix 40 mg daily 3. Continue symptomatic and supportive care 4. We will follow with you closely Dr. Glendy Palmer I agree with the dictator's note, documented as a scribe by Luna Melvin.
[2020-10-03 14:19] LABS: Glucose,Whole Blood 304 mg/dL (75-99)
[2020-10-03 16:29] LABS: Glucose,Whole Blood 252 mg/dL (75-99)
[2020-10-03] MEDS: INSULIN PUMP BASAL RATES 1 EACH MISC MISCELLANE SCH ×5 (17:16→21:55)
--- NOTE | 2020-10-03 20:51 | P.PN ---
Progress Note - Text Progress Note Date: 10/03/20 Chief Complaint: Abdominal pain History of presenting complaint: This is a 45-year-old patient of Dr. cox from [place]. Chronic stable medical conditions include diabetes mellitus, GERD, hyperlipidemia,. Patient is on insulin pump. Patient is on home hemodialysis and performs the same 4-5 times a week. Patient had tested positive for COVID of weeks ago and was admitted to [facility]. He was being treated that. His sugars were running very high. Patient is unable to use his insulin pump. Nursing staff and tried to contact patient's sister but could not be reached. Endocrinology Dr. Saxena was consulted. Patient had decided to leave AMA. This was 2 nights ago Patient now presents to the ER here for 3 days of increasing epigastric pain. Does not radiate. Denies any nausea vomiting. Decreased oral intake. Has not had a bowel movement for 4-5 days. Denies any fever and chills. No shortness of breath. He states he not able to do his home hemodialysis because the catheter not working. He has a right infraclavicular dialysis catheter. Patient also has a right below-knee amputation done at the outside hospital. Stump is healing well. Last night the admitting nurse had called me from the floor stating that patient was not able uses pump. This morning the patient tells me he has no probably using his pump. He had ran into a similar situation at [facility] Admitted with acute pancreatitis. Started on clear liquids Today-patient feeling better. Less abdominal pain. Tolerating clear liquid diet. Patient started to use his own pump. Initially Accu-Cheks were running high. Patient due to get dialysis today Review of systems: Was done for constitutional, cardiovascular, GI, pulmonary. relevant finding as above Active Medications Amlodipine Besylate (Amlodipine 2.5 Mg Tab) 2.5 mg PO DAILY [facility] Last Admin: 10/03/20 08:25 Dose: Not Given Documented by: Apixaban (Apixaban 2.5 Mg Tablet) 2.5 mg PO DAILY [facility] Last Admin: 10/03/20 07:16 Dose: 2.5 mg Documented by: Atorvastatin Calcium (Atorvastatin 40 Mg Tab) 40 mg PO HS [facility] Last Admin: 10/02/20 20:40 Dose: 40 mg Documented by: Cyclobenzaprine HCl (Cyclobenzaprine 5 Mg Tab) 5 mg PO TID [facility] Last Admin: 10/03/20 16:35 Dose: 5 mg Documented by: Furosemide (Furosemide 80 Mg Tab) 80 mg PO BID@0900,1600 [facility] Last Admin: 10/03/20 16:35 Dose: 80 mg Documented by: Hydromorphone HCl (Hydromorphone 0.5 Mg/0.5 Ml Syringe) 0.5 mg IVP Q3H PRN PRN Reason: Pain Last Admin: 10/02/20 14:02 Dose: 0.5 mg Documented by: Sodium Chloride (Saline 0.9%) 1,000 mls @ 50 mls/hr IV .Q20H [facility] Last Admin: 10/02/20 11:53 Dose: 50 mls/hr Documented by: Insulin Aspart (Insulin Aspart (Novolog) 100 Unit/Ml Vial) 0 unit SQ DAILY PRN PRN Reason: Insulin Pump Replacement Magnesium Oxide (Magnesium Oxide 400 Mg Tab) 400 mg PO DAILY [facility] Last Admin: 10/03/20 07:16 Dose: 400 mg Documented by: Midodrine (Midodrine 5 Mg Tab) 5 mg PO TID PRN PRN Reason: Blood Pressure - Low Miscellaneous Information (Insulin Pump Meal Bolus 1 Unit Misc) 0 unit MISCELLANE ACHS GABY; Protocol Last Admin: 10/03/20 17:42 Dose: 12.3 unit Documented by: Miscellaneous Information (Insulin Pump Correction Bolus 1 Unit Misc) 0 unit MISCELLANE ACHS PRN; Protocol PRN Reason: Blood Sugar - High Last Admin: 10/03/20 14:24 Dose: 2.1 unit Documented by: Miscellaneous Information (Insulin Pump Basal Rates 1 Each Misc) 1 each MISCELLANE Q12HR [facility]; Protocol Multivit/Ca Carb/B Cmplx/FA/Prenat (Folic Acid-Vit B Complex-Vit C 1 Cap) 1 each PO DAILY [facility] Last Admin: 10/03/20 07:16 Dose: 1 each Documented by: Naloxone HCl (Naloxone 0.4 Mg/Ml 1 Ml Vial) 0.2 mg IV Q2M PRN PRN Reason: Opioid Reversal Oxycodone/Acetaminophen (Oxycodone-Apap 10-325mg 1 Each Tab) 1 each PO Q4H PRN PRN Reason: Pain Last Admin: 10/03/20 16:35 Dose: 1 each Documented by: Pantoprazole Sodium (Pantoprazole 40 Mg Tablet) 40 mg PO BID [facility] Last Admin: 10/03/20 07:16 Dose: 40 mg Documented by: Pregabalin (Pregabalin 100 Mg Cap) 200 mg PO DAILY [facility] Last Admin: 10/03/20 07:16 Dose: 200 mg Documented by: Timolol Maleate (Timolol 0.5% Ophth Drops 5 Ml Btl) 1 drops RIGHT EYE BID [facility] Last Admin: 10/03/20 07:17 Dose: 1 drops Documented by: Physical examination: VITAL SIGNS: 97.7, 75, 18, 121/60, 100% room air GENERAL: BMI 37.9, laying in bed, comfortable EYES: Pupils equal. Conjunctiva normal. HEENT: External appearance of nose and ears normal, oral cavity grossly normal. NECK: JVD not raised; masses not palpable. HEART: First and second heart sounds are normal; no edema. LUNGS: Respiratory rate normal; clear to auscultation. ABDOMEN: Soft, minimal epigastric tenderness, no guarding rigidity, liver spleen not palpable, no masses palpable. PSYCH: Alert and oriented x3; mood and affect normal. MUSCULOSKELETAL: Right below-knee amputation. Healing scars on the right stump dry INVESTIGATIONS, reviewed in the clinical context: October 03: White count 11.4 hemoglobin 10 potassium 4.1. Accu-Cheks noted White count 15.1 hemoglobin 11.2 platelets 307 potassium 3.7 creatinine 9.2 to Lipase 419 Urine drug screen positive for oxycodone EKG tracing personally reviewed by me-normal sinus rhythm Computed tomography scan of the abdomen-mild to moderate peripancreatic fat stranding, diffuse moderately patchy basilar opacities Assessment: -Acute pancreatitis. Patient does not have any have any history of alcoholism.- Improving -End-stage kidney disease on home hemodialysis with the right infraclavicular dialysis catheter -Anemia of chronic disease due to chronic kidney disease -Right below-knee amputation with a healing stump -Bilateral COVID 19 pneumonia, recently diagnosed. Patient's pulse oxing well in room air. -Diabetes mellitus, insulin requiring,-insulin pump. Uncontrolled with hyperglycemia Plan: Hemodialysis today. Patient using his own pump. Diet advanced. Discussed with patient. Hopefully DC tomorrow.
[2020-10-03 20:55] LABS: Glucose,Whole Blood 281 mg/dL (75-99)
[2020-10-03] MEDS: ATORVASTATIN 40 MG TAB PO SCH (21:42)
[2020-10-03] MEDS: SODIUM CHLORIDE 0.9% 1,000 ML IV SCH (23:13)
[2020-10-04 01:51] LABS: Glucose,Whole Blood 63 mg/dL (75-99)
[2020-10-04] MEDS: oxyCODONE-APAP 10-325MG 1 EACH TAB PO PRN (01:58)
[2020-10-04 02:17] LABS: Glucose,Whole Blood 62 mg/dL (75-99)
[2020-10-04 02:35] LABS: Glucose,Whole Blood 87 mg/dL (75-99)
[2020-10-04 04:36] LABS: Glucose,Whole Blood 116 mg/dL (75-99)
[2020-10-04 07:03] LABS: Glucose,Whole Blood 211 mg/dL (75-99)
[2020-10-04] MEDS: MAGNESIUM OXIDE 400 MG TAB PO SCH (07:30)
[2020-10-04] MEDS: APIXABAN 2.5 MG TABLET PO SCH (07:30)
[2020-10-04] MEDS: CYCLOBENZAPRINE 5 MG TAB PO SCH (07:30)
[2020-10-04] MEDS: PREGABALIN 100 MG CAP PO SCH (07:30)
[2020-10-04] MEDS: PANTOPRAZOLE 40 MG TABLET PO SCH (07:30)
[2020-10-04] MEDS: FUROSEMIDE 80 MG TAB PO SCH ×2 (07:31→07:34)
[2020-10-04] MEDS: FOLIC ACID-VIT B COMPLEX-VIT C 1 CAP PO SCH (07:31)
[2020-10-04] MEDS: TIMOLOL 0.5% OPHTH DROPS 5 ML BTL RIGHT EYE SCH (07:31)
[2020-10-04] MEDS: amLODIPine 2.5 MG TAB PO SCH (07:36)
[2020-10-04] MEDS: INSULIN PUMP MEAL BOLUS 1 UNIT MISC MISCELLANE SCH (07:37)
[2020-10-04] MEDS: INSULIN PUMP BASAL RATES 1 EACH MISC MISCELLANE SCH (09:11)
--- NOTE | 2020-10-04 09:25 | P.PN ---
Subjective Progress Note Date: 10/04/20 Principal diagnosis: Epigastric pain, elevated lipase A 45-year-old patient with a history of end-stage renal disease on hemodialysis for the last couple years duration. He is scheduled for hemodialysis 3 times a week, he was recently diagnosed with Covid-19 infection for which he was hospitalized at [facility] 2 weeks ago. Presented to the hospital not feeling well with epigastric discomfort, some nausea but no emesis. Upon admission he had mild elevation of his lipase at 434, CT of the abdomen and pelvis showed very pancreatic examination consistent with acute pancreatitis. He pays normalized to 196. The patient states he's feeling much better today, denies any abdominal pain, nausea, or vomiting. He had no acute changes through the night. His been getting hemodialysis as ordered per nephrology. He states he is wanting to go home. Objective - Vital Signs Vital signs: Vital Signs Temp 97.7 F 10/04/20 05:14 Pulse 75 10/04/20 07:15 Resp 16 10/04/20 07:15 BP 97/58 10/04/20 05:14 Pulse Ox 95 10/04/20 05:14 Intake & Output 10/03/20 10/04/20 10/04/20 18:59 06:59 18:59 Output Total 1999 Balance -1999 Output: Hemodialysis 1999 Other: Voiding Method Urinal Urinal Urinal # Voids 1 # Bowel Movements 1 - Exam General appearance: The patient is alert, oriented, in no acute distress. HET: Head is normocephalic and atraumatic. Conjunctiva pink. Sclera anicteric. Neck: Supple without lymphadenopathy. Abdomen: Soft, minimal epigastric tenderness, nondistended with bowel sounds. No guarding or rigidity. Extremities: Normal skin color and turgor. No pedal edema Neurological: No focal deficits. Alert and oriented 3. - Labs CBC & Chem 7: 10/03/20 06:45 10/03/20 06:45 Labs: Abnormal Lab Results - Last 24 Hours (Table) 10/03/20 10/03/20 10/03/20 Range/Units 06:45 11:32 11:33 Carbon Dioxide 17.9 L (21.6-31.8) mmol/L Anion Gap 16.10 H (4.00-12.00) mmol/L BUN 42.0 H (9.0-27.0) mg/dL Creatinine 6.9 H (0.6-1.5) mg/dL Est GFR (CKD-EPI)AfAm 10.3 L (60.0-200.0) Est GFR (CKD-EPI)NonAf 8.9 L (60.0-200.0) BUN/Creatinine Ratio 6.09 L (12.00-20.00) Ratio Glucose 380 H (70-110) mg/dL POC Glucose (mg/dL) 568 H 549 H (75-99) mg/dL Calcium 7.1 L (8.7-10.3) mg/dL 10/03/20 10/03/20 10/03/20 Range/Units 14:18 16:28 20:52 Carbon Dioxide (21.6-31.8) mmol/L Anion Gap (4.00-12.00) mmol/L BUN (9.0-27.0) mg/dL Creatinine (0.6-1.5) mg/dL Est GFR (CKD-EPI)AfAm (60.0-200.0) Est GFR (CKD-EPI)NonAf (60.0-200.0) BUN/Creatinine Ratio (12.00-20.00) Ratio Glucose (70-110) mg/dL POC Glucose (mg/dL) 304 H 252 H 281 H (75-99) mg/dL Calcium (8.7-10.3) mg/dL 10/04/20 10/04/20 10/04/20 Range/Units 01:49 02:15 04:34 Carbon Dioxide (21.6-31.8) mmol/L Anion Gap (4.00-12.00) mmol/L BUN (9.0-27.0) mg/dL Creatinine (0.6-1.5) mg/dL Est GFR (CKD-EPI)AfAm (60.0-200.0) Est GFR (CKD-EPI)NonAf (60.0-200.0) BUN/Creatinine Ratio (12.00-20.00) Ratio Glucose (70-110) mg/dL POC Glucose (mg/dL) 63 L 62 L 116 H (75-99) mg/dL Calcium (8.7-10.3) mg/dL 10/04/20 Range/Units 07:01 Carbon Dioxide (21.6-31.8) mmol/L Anion Gap (4.00-12.00) mmol/L BUN (9.0-27.0) mg/dL Creatinine (0.6-1.5) mg/dL Est GFR (CKD-EPI)AfAm (60.0-200.0) Est GFR (CKD-EPI)NonAf (60.0-200.0) BUN/Creatinine Ratio (12.00-20.00) Ratio Glucose (70-110) mg/dL POC Glucose (mg/dL) 211 H (75-99) mg/dL Calcium (8.7-10.3) mg/dL Assessment and Plan Assessment: 1. Epigastric pain associated with nausea and vomiting for the last 3-4 days and mild elevation of lipase with the computed tomography scan showing changes in the pancreas consistent with acute pancreatitis which continues to improve 2. CoVid-19 pneumonia 3. History of End-stage renal disease, on hemodialysis 4. History of atrial fibrillation on Eliquis 5. Peripheral vascular disease 6. Long-standing history of diabetes mellitus Plan: 1. Advance to consistent carbohydrate/renal diet 2. Protonix 40 mg daily 3. Continue symptomatic and supportive care 4. You for this consultation, we will sign off at this time. Patient may be discharged home from a gastroenterology standpoint and may follow-up as needed. Dr. Glendy Palmer I agree with the dictator's note, documented as a scribe by Luna Melvin.
[2020-10-04 09:44] VITALS: PULSE 70; RESP 17; TEMP 97.8
[2020-10-04 10:32] VITALS: BP 105/63
--- NOTE | 2020-10-04 10:51 | P.PN ---
Subjective Patient is seen in follow-up for end-stage renal disease. He is maintained on home hemodialysis. Underwent dialysis yesterday with 2 L ultrafiltration. The dialysis catheter worked fine. Denies chest pain or shortness of breath. Wants to go home. Vital signs are stable. General: The patient appeared well nourished and normally developed. HEENT: Head exam is unremarkable. Neck is without jugular venous distension. LUNGS: Breath sounds decreased. HEART: Rate and Rhythm are regular. ABDOMEN: Soft, nontender. EXTREMITITES: No edema. BKA noted. Objective - Vital Signs Vital signs: Vital Signs Temp 97.8 F 10/04/20 09:43 Pulse 70 10/04/20 09:43 Resp 17 10/04/20 09:43 BP 105/63 10/04/20 10:32 Pulse Ox 95 10/04/20 09:43 Intake & Output 10/03/20 10/04/20 10/04/20 18:59 06:59 18:59 Output Total 1999 Balance -1999 Output: Hemodialysis 1999 Other: Voiding Method Urinal Urinal Urinal # Voids 1 # Bowel Movements 1 - Labs CBC & Chem 7: 10/03/20 06:45 10/03/20 06:45 Labs: Abnormal Lab Results - Last 24 Hours (Table) 10/03/20 10/03/20 10/03/20 Range/Units 06:45 11:32 11:33 Carbon Dioxide 17.9 L (21.6-31.8) mmol/L Anion Gap 16.10 H (4.00-12.00) mmol/L BUN 42.0 H (9.0-27.0) mg/dL Creatinine 6.9 H (0.6-1.5) mg/dL Est GFR (CKD-EPI)AfAm 10.3 L (60.0-200.0) Est GFR (CKD-EPI)NonAf 8.9 L (60.0-200.0) BUN/Creatinine Ratio 6.09 L (12.00-20.00) Ratio Glucose 380 H (70-110) mg/dL POC Glucose (mg/dL) 568 H 549 H (75-99) mg/dL Calcium 7.1 L (8.7-10.3) mg/dL 10/03/20 10/03/20 10/03/20 Range/Units 14:18 16:28 20:52 Carbon Dioxide (21.6-31.8) mmol/L Anion Gap (4.00-12.00) mmol/L BUN (9.0-27.0) mg/dL Creatinine (0.6-1.5) mg/dL Est GFR (CKD-EPI)AfAm (60.0-200.0) Est GFR (CKD-EPI)NonAf (60.0-200.0) BUN/Creatinine Ratio (12.00-20.00) Ratio Glucose (70-110) mg/dL POC Glucose (mg/dL) 304 H 252 H 281 H (75-99) mg/dL Calcium (8.7-10.3) mg/dL 10/04/20 10/04/20 10/04/20 Range/Units 01:49 02:15 04:34 Carbon Dioxide (21.6-31.8) mmol/L Anion Gap (4.00-12.00) mmol/L BUN (9.0-27.0) mg/dL Creatinine (0.6-1.5) mg/dL Est GFR (CKD-EPI)AfAm (60.0-200.0) Est GFR (CKD-EPI)NonAf (60.0-200.0) BUN/Creatinine Ratio (12.00-20.00) Ratio Glucose (70-110) mg/dL POC Glucose (mg/dL) 63 L 62 L 116 H (75-99) mg/dL Calcium (8.7-10.3) mg/dL 10/04/20 Range/Units 07:01 Carbon Dioxide (21.6-31.8) mmol/L Anion Gap (4.00-12.00) mmol/L BUN (9.0-27.0) mg/dL Creatinine (0.6-1.5) mg/dL Est GFR (CKD-EPI)AfAm (60.0-200.0) Est GFR (CKD-EPI)NonAf (60.0-200.0) BUN/Creatinine Ratio (12.00-20.00) Ratio Glucose (70-110) mg/dL POC Glucose (mg/dL) 211 H (75-99) mg/dL Calcium (8.7-10.3) mg/dL Assessment and Plan Plan: Assessment: 1. End-stage renal disease maintained on home hemodialysis. 2. Covid 19 infection. Asymptomatic. Currently on room air. 3. Diabetes mellitus. 4. Status post right BKA. 5. Clotted permacath s/p cathflo. The catheter worked fine yesterday. 6. Acute pancreatitis. GI following. Lipase levels trending down. Plan: Hemodialysis tomorrow. Hold amlodipine for systolic blood pressure less than 120.
[2020-10-04 11:22] LABS: Glucose,Whole Blood 210 mg/dL (75-99)
[2020-10-04 16:01] LABS: ANA Pattern See Footnote
--- NOTE | 2020-10-04 23:06 | P.DS ---
Providers Date of admission: 10/01/20 17:22 Expected date of discharge: 10/04/20 Attending physician: Alan Roland Consults: 10/01/20 17:34 Consult Physician Routine Consulting Provider: Zay Gonzalez Consult Reason/Comments: missed diaylis x3 Do you want consulting provider notified?: Yes, Notify in am Consult Physician Routine Consulting Provider: Arnie Torres Consult Reason/Comments: pancreatitis, dialysis pt Do you want consulting provider notified?: Yes, Notify in am Primary care physician: Baldev Ayers MD Hospital Course: Chief Complaint: Abdominal pain History of presenting complaint: This is a 45-year-old patient of Dr. ayers from [facility]. Chronic stable medical conditions include diabetes mellitus, GERD, hyperlipidemia,. Patient is on insulin pump. Patient is on home hemodialysis and performs the same 4-5 times a week. Patient had tested positive for COVID of weeks ago and was admitted to [facility]. He was being treated that. His sugars were running very high. Patient is unable to use his insulin pump. Nursing staff and tried to contact patient's sister but could not be reached. Endocrinology Dr. Saxena was consulted. Patient had decided to leave [facility]. This was 2 nights ago Patient now presents to the ER here for 3 days of increasing epigastric pain. Does not radiate. Denies any nausea vomiting. Decreased oral intake. Has not had a bowel movement for 4-5 days. Denies any fever and chills. No shortness of breath. He states he not able to do his home hemodialysis because the catheter not working. He has a right infraclavicular dialysis catheter. Patient also has a right below-knee amputation done at the outside hospital. Stump is healing well. Last night the admitting nurse had called me from the floor stating that patient was not able uses pump. This morning the patient tells me he has no probably using his pump. He had ran into a similar situation at [facility] Admitted with acute pancreatitis. Started on clear liquids. Clotted PermCath. Status post Cathflo. Patient being put on eliquis by nephrology for the catheter Today-doing better. Diet was advanced. No abdominal pain. Very keen to go home. Using his insulin pump well. His pump is being managed by Dr. ayers. Cleared by GI had hemodialysis yesterday Consultation: Dr. Monge from nephrology Dr. Glendy Palmer from GI Physical examination: VITAL SIGNS: 97.8, 70, 17, 105/63, 95% room air GENERAL: BMI 37.9, laying in bed, comfortable EYES: Pupils equal. Conjunctiva normal. HEENT: External appearance of nose and ears normal, oral cavity grossly normal. NECK: JVD not raised; masses not palpable. HEART: First and second heart sounds are normal; no edema. LUNGS: Respiratory rate normal; clear to auscultation. ABDOMEN: Soft, no epigastric tenderness, no guarding rigidity, liver spleen not palpable, no masses palpable. PSYCH: Alert and oriented x3; mood and affect normal. MUSCULOSKELETAL: Right below-knee amputation. Healing scars on the right stump dry INVESTIGATIONS, reviewed in the clinical context: October 04: Accu-Cheks 116, 211, 210 October 03: White count 11.4 hemoglobin 10 potassium 4.1. Accu-Cheks noted White count 15.1 hemoglobin 11.2 platelets 307 potassium 3.7 creatinine 9.2 to Lipase 419 Urine drug screen positive for oxycodone EKG tracing personally reviewed by me-normal sinus rhythm Computed tomography scan of the abdomen-mild to moderate peripancreatic fat stranding, diffuse moderately patchy basilar opacities Assessment: -Acute pancreatitis. POA -End-stage kidney disease on home hemodialysis with the right infraclavicular dialysis catheter -Anemia of chronic disease due to chronic kidney disease -Right below-knee amputation with a healing stump -Bilateral COVID 19 pneumonia, recently diagnosed. Patient's pulse oxing well in room air. -Diabetes mellitus, insulin requiring,-insulin pump. Uncontrolled with hyperglycemia -Clotted PermCath status post Cathflo Disposition: Home Patient Condition at Discharge: Stable Plan - Discharge Summary Discharge Rx Participant: Yes New Discharge Prescriptions: New Apixaban [Eliquis] 2.5 mg PO DAILY #30 tablet Continue Ergocalciferol [Vitamin D2 (DRISDOL)] 50,000 unit PO Q14D Atorvastatin [Lipitor] 40 mg PO HS Magnesium Oxide [Mag-Ox] 400 mg PO DAILY Cyclobenzaprine [Flexeril] 5 mg PO TID Dialyvite 1 tab PO DAILY Midodrine [ProAmatine] 5 mg PO TID PRN PRN Reason: Blood Pressure - Low Timolol [Betimol 0.5% Ophth Soln] 1 drop RIGHT EYE BID Omeprazole [PriLOSEC] 20 mg PO BID INSULIN LISPRO (For Pump) [humaLOG (For Pump)] 0.01 units SQ-PUMP CONTINUOUS amLODIPine [Norvasc] 2.5 mg PO DAILY Furosemide [Lasix] 80 mg PO BID oxyCODONE-APAP 10-325MG [Percocet 10-325 mg] 1 tab PO Q4-6H PRN PRN Reason: Pain Pregabalin [Lyrica] 200 mg PO TID Discharge Medication List Atorvastatin [Lipitor] 40 mg PO HS 01/31/17 [History] Cyclobenzaprine [Flexeril] 5 mg PO TID 01/31/17 [History] Dialyvite 1 tab PO DAILY 01/31/17 [History] Ergocalciferol [Vitamin D2 (DRISDOL)] 50,000 unit PO Q14D 01/31/17 [History] INSULIN LISPRO (For Pump) [humaLOG (For Pump)] 0.01 units SQ-PUMP CONTINUOUS 01/31/17 [History] Magnesium Oxide [Mag-Ox] 400 mg PO DAILY 01/31/17 [History] Midodrine [ProAmatine] 5 mg PO TID PRN 01/31/17 [History] Omeprazole [PriLOSEC] 20 mg PO BID 01/31/17 [History] Timolol [Betimol 0.5% Ophth Soln] 1 drop RIGHT EYE BID 01/31/17 [History] Furosemide [Lasix] 80 mg PO BID 10/01/20 [History] Pregabalin [Lyrica] 200 mg PO TID 10/01/20 [History] amLODIPine [Norvasc] 2.5 mg PO DAILY 10/01/20 [History] oxyCODONE-APAP 10-325MG [Percocet 10-325 mg] 1 tab PO Q4-6H PRN 10/01/20 [History] Apixaban [Eliquis] 2.5 mg PO DAILY #30 tablet 10/04/20 [Rx] Follow up Appointment(s)/Referral(s): Jinny Cope MD [STAFF PHYSICIAN] - 1 Week (Patient wants to make appointment) Baldev Ayers MD [Primary Care Provider] - 1-2 days (patient wants to make appointment ) [facility] Visiting Nurse, [NON-STAFF] - Patient Instructions/Handouts: Pancreatitis (DC) Discharge Disposition: HOME WITH HOME HEALTH SERVICES
--- NOTE | 2020-10-06 12:28 | CDI ---
Documentation Clarification Form Date: 10/06/20 From: Kelsey Washington Phone: Please call Frida Church at from 8-5pm for questions Admit Date: 10/01/2020 05:22:00 PM Patient Name: Checo Bill Visit Number: [id number] Discharge Date: 10/04/2020 12:22:00 PM ATTENTION: The Clinical Documentation Specialists (CDI) and [facility] Coding Staff appreciate your assistance in clarifying documentation. Please respond to the clarification below the line at the bottom and electronically sign. The CDI & [facility] Coding staff will review the response and follow-up if needed. Please note: Queries are made part of the Legal Health Record. If you have any questions, please contact the author of this message via ITS. Dr. Alan Roland, Atrial Fibrillation is documented in the GI consult and GI PNs X 2. History/Risk Factors: Acute pancreatitis, ESRD w HTN, recent COVID & viral PNA, anemia of CKD, DM T2 w CKD & PVD, Rt BKA, HLD, GERD Clinical Indicators: HX of atrial fibrillation on Eliquis. EKG/telemetry: normal sinus rhythm Treatment: Eliquis In your professional opinion, can you please clarify the type of Atrial Fibrillation, if known? Chronic Permanent Paroxysmal Persistent, longstanding Persistent, other Persistent, permanent Other, please specify Unable to determine Permanent atrial fibrillation MTDD
== END 2020-10-04 12:22 | disposition home health service (06) | DRG 438 ==
LOC: EC 14:19 → 4SSUR 17:22
PROVIDERS: ADMIT Hospitalist; ATTEND Hospitalist
PROC: 5A1D70Z Performance of Urinary Filtration, Intermittent, Less than 6 Hours Per Day (ICD-10-PCS; principal; 2020-10-02)
DX: K85.90 Acute pancreatitis without necrosis or infection, unspecified (principal); N18.6 End stage renal disease; I12.0 Hypertensive chronic kidney disease with stage 5 chronic kidney disease or end stage renal disease; I48.21 Permanent atrial fibrillation; D63.1 Anemia in chronic kidney disease; E11.22 Type 2 diabetes mellitus with diabetic chronic kidney disease; E11.51 Type 2 diabetes mellitus with diabetic peripheral angiopathy without gangrene; Z99.2 Dependence on renal dialysis; E11.65 Type 2 diabetes mellitus with hyperglycemia; Z79.4 Long term (current) use of insulin; Z89.511 Acquired absence of right leg below knee; Z91.15 Patient's noncompliance with renal dialysis; Z86.19 Personal history of other infectious and parasitic diseases; E78.5 Hyperlipidemia, unspecified; K21.9 Gastro-esophageal reflux disease without esophagitis; K59.00 Constipation, unspecified; Z79.899 Other long term (current) drug therapy; Z87.891 Personal history of nicotine dependence; Z96.41 Presence of insulin pump (external) (internal); Z98.42 Cataract extraction status, left eye; Z98.41 Cataract extraction status, right eye; Z86.59 Personal history of other mental and behavioral disorders; Z80.9 Family history of malignant neoplasm, unspecified
CPT/HCPCS: 36415; 71046; 74176; 80048; 80053; 80061; 80306; 81001; 82140; 82787; 83690; 83735; 84100; 84484; 85025; 85610; 85730; 86038; 86039; 87086; 90935; 93005; 96374; 96376; 99285

== ENCOUNTER 2021-03-16 05:34 | Inpatient (IN) | payer MEDICARE, OTHER ==
[2021-03-16] MEDS ORDERED: SODIUM CHLORIDE 0.9% 500 ML 500 ML IV STA (05:44)
[2021-03-16 05:55] LABS: Glucose,Whole Blood 245 mg/dL (75-99)
[2021-03-16 06:05] LABS: Basophils # (A) 0.1 k/uL (0-0.2); Basophils % (A) 1 %; Eosinophils # (A) 0.3 k/uL (0-0.7); Eosinophils % (A) 3 %; HCT 40.6 % (39.0-53.0); HGB 12.6 gm/dL (13.0-17.5); Hypochromasia Marked; Lymphocytes # (A) 2.9 k/uL (1.0-4.8); Lymphocytes % (A) 28 %; MCH 29.9 pg (25.0-35.0); MCV 96.3 fL (80.0-100.0); Mean Platelet Volume 10.6; Monocytes # (A) 0.5 k/uL (0-1.0); Monocytes % (A) 4 %; Neutrophils # (A) 6.4 k/uL (1.3-7.7); Neutrophils % (A) 62 %; Platelet Count 187 k/uL (150-450); RBC 4.22 m/uL (4.30-5.90); RDW 15.6 % (11.5-15.5); WBC 10.3 k/uL (3.8-10.6)
[2021-03-16 06:17] LABS: Albumin 3.7 g/dL (3.5-5.0); Calcium 7.9 mg/dL (8.4-10.2); Magnesium 1.7 mg/dL (1.6-2.3); Potassium 4.4 mmol/L (3.5-5.1); Total Bilirubin 0.5 mg/dL (0.2-1.3); Total Protein 6.4 g/dL (6.3-8.2)
--- NOTE | 2021-03-16 06:23 | ED ---
Syncope HPI - General Stated Complaint: Syncope Time Seen by Provider: 03/16/21 05:44 Source: patient, EMS Mode of arrival: EMS Limitations: no limitations - History of Present Illness Initial Comments: This patient is a 46-year-old man who presents to be evaluated after syncopal episode. The patient states she was in the process of getting out of bed to get ready for his dialysis appointment. Patient states he felt lightheaded, then woke afterwards. The patient was told that family members had perform CPR as they could not detect a pulse. Was reported that they pressed on his chest for 30-60 seconds. When EMS arrived he was alert and oriented. There was no tonic-clonic activity reported. No postictal period was reported. MD Complaint: loss of consciousness, collapsed -: minutes(s) Prodromal Symptoms: lightheaded Witnessed: yes - by bystander Current Symptoms: back to baseline Context: getting out of bed Treatments Prior to Arrival: none - Related Data Home Medications Medication Instructions Recorded Confirmed Atorvastatin [Lipitor] 40 mg PO HS 01/31/17 10/01/20 Cyclobenzaprine [Flexeril] 5 mg PO TID 01/31/17 10/01/20 Dialyvite 1 tab PO DAILY 01/31/17 10/01/20 Ergocalciferol [Vitamin D2 50,000 unit PO Q14D 01/31/17 10/01/20 (DRISDOL)] INSULIN LISPRO (For Pump) [humaLOG 0.01 units SQ-PUMP CONTINUOUS 01/31/17 10/01/20 (For Pump)] Magnesium Oxide [Mag-Ox] 400 mg PO DAILY 01/31/17 10/01/20 Midodrine [ProAmatine] 5 mg PO TID PRN 01/31/17 10/01/20 Omeprazole [PriLOSEC] 20 mg PO BID 01/31/17 10/01/20 Timolol [Betimol 0.5% Ophth Soln] 1 drop RIGHT EYE BID 01/31/17 10/01/20 Furosemide [Lasix] 80 mg PO BID 10/01/20 10/01/20 Pregabalin [Lyrica] 200 mg PO TID 10/01/20 10/01/20 amLODIPine [Norvasc] 2.5 mg PO DAILY 10/01/20 10/01/20 oxyCODONE-APAP 10-325MG [Percocet 1 tab PO Q4-6H PRN 10/01/20 10/01/20 10-325 mg] Previous Rx's Medication Instructions Recorded Apixaban [Eliquis] 2.5 mg PO DAILY #30 tablet 10/04/20 Allergies Allergy/AdvReac Type Severity Reaction Status Date / Time No Known Allergies Allergy Verified 03/16/21 06:48 Review of Systems ROS Statement: Those systems with pertinent positive or pertinent negative responses have been documented in the HPI. ROS Other: All systems not noted in ROS Statement are negative. Constitutional: Denies: fever, chills, weakness Eyes: Denies: vision change Respiratory: Denies: cough, dyspnea, hemoptysis Cardiovascular: Reports: orthopnea, syncope. Denies: chest pain, palpitations Gastrointestinal: Denies: abdominal pain, vomiting, diarrhea Musculoskeletal: Denies: back pain Skin: Denies: rash Neurological: Denies: headache, weakness, numbness, confusion, vertigo Past Medical History Past Medical History: Diabetes Mellitus, Dialysis, GERD/Reflux, Hyperlipidemia, Renal Disease Additional Past Medical History / Comment(s): See Dr Freed H&P, peritoneal dialysis every night, constipation, anemia, kidney failure, History of Any Multi-Drug Resistant Organisms: None Reported Additional Past Surgical History / Comment(s): tom cataract, peritoneal dialysis catheter rt side, Past Anesthesia/Blood Transfusion Reactions: No Reported Reaction Past Psychological History: Anxiety Smoking Status: Never smoker Past Alcohol Use History: None Reported Past Drug Use History: None Reported - Past Family History Mother Family Medical History: Cancer General Exam Limitations: no limitations General appearance: alert, in no apparent distress Head exam: Present: atraumatic, normocephalic Eye exam: Present: normal appearance. Absent: scleral icterus, conjunctival injection Neck exam: Present: normal inspection Respiratory exam: Present: rales (Bilateral bases), chest wall tenderness. Absent: respiratory distress, wheezes, rhonchi, stridor, accessory muscle use Cardiovascular Exam: Present: regular rate, normal rhythm, normal heart sounds. Absent: systolic murmur, diastolic murmur, rubs, gallop GI/Abdominal exam: Present: soft. Absent: distended, tenderness, guarding, rebound, rigid Extremities exam: Present: full ROM, normal capillary refill, pedal edema (Trace edema left ankle), other (Right leg BKA). Absent: tenderness, calf tenderness Back exam: Present: normal inspection Neurological exam: Present: alert, oriented X3. Absent: motor sensory deficit Skin exam: Present: warm, dry, intact, normal color. Absent: rash Course Vital Signs 03/16/21 03/16/21 05:37 06:42 Temperature 97.9 F Pulse Rate 91 82 Respiratory 18 18 Rate Blood Pressure 90/68 109/80 O2 Sat by Pulse 95 95 Oximetry EKG Findings - EKG Results: EKG: interpreted by NIMO, sinus rhythm (Rate 89 bpm), normal axis - Blocks, [place], Hypertrophy, ST Abn: Chamber hypertrophy or enlargement: right ventricular hypertrophy or enlargement Repolarization changes or abnormalities: nonspecific abnormality, ST segment, and/or T wave, Q-T interval prolongation Medical Decision Making - Medical Decision Making Patient's 46-year-old man who had syncopal episode while getting ready for dialysis this morning. Will admit patient for telemetry monitoring, serial cardiac enzymes. I addition patient's d-dimer is elevated. He does take Eliquis as blood thinner. Given the renal failure will have VQ scan performed. - Lab Data Result diagrams: 03/16/21 05:52 03/16/21 05:52 Lab Results 03/16/21 03/16/21 03/16/21 Range/Units 05:52 05:52 05:52 WBC 10.3 (3.8-10.6) k/uL RBC 4.22 L (4.30-5.90) m/uL Hgb 12.6 L (13.0-17.5) gm/dL Hct 40.6 (39.0-53.0) % MCV 96.3 (80.0-100.0) fL MCH 29.9 (25.0-35.0) pg MCHC 31.0 (31.0-37.0) g/dL RDW 15.6 H (11.5-15.5) % Plt Count 187 (150-450) k/uL MPV 10.6 Neutrophils % 62 % Lymphocytes % 28 % Monocytes % 4 % Eosinophils % 3 % Basophils % 1 % Neutrophils # 6.4 (1.3-7.7) k/uL Lymphocytes # 2.9 (1.0-4.8) k/uL Monocytes # 0.5 (0-1.0) k/uL Eosinophils # 0.3 (0-0.7) k/uL Basophils # 0.1 (0-0.2) k/uL Hypochromasia Marked PT 10.8 (9.0-12.0) sec INR 1.0 (<1.2) APTT 26.6 (22.0-30.0) sec D-Dimer 3.45 H (<0.60) mg/L FEU Sodium 134 L (137-145) mmol/L Potassium 4.4 (3.5-5.1) mmol/L Chloride 98 (98-107) mmol/L Carbon Dioxide 28 (22-30) mmol/L Anion Gap 8 mmol/L BUN 23 H (9-20) mg/dL Creatinine 6.00 H (0.66-1.25) mg/dL Est GFR (CKD-EPI)AfAm 12 (>60 ml/min/1.73 sqM) Est GFR (CKD-EPI)NonAf 10 (>60 ml/min/1.73 sqM) Glucose 256 H (74-99) mg/dL POC Glucose (mg/dL) (75-99) mg/dL POC Glu Mechanical P[employer]ing Designer ID Calcium 7.9 L (8.4-10.2) mg/dL Magnesium 1.7 (1.6-2.3) mg/dL Total Bilirubin 0.5 (0.2-1.3) mg/dL AST 121 H (17-59) U/L ALT 32 (4-49) U/L Alkaline Phosphatase 155 H (38-126) U/L Troponin I (0.000-0.034) ng/mL Total Protein 6.4 (6.3-8.2) g/dL Albumin 3.7 (3.5-5.0) g/dL 03/16/21 03/16/21 Range/Units 05:52 05:53 WBC (3.8-10.6) k/uL RBC (4.30-5.90) m/uL Hgb (13.0-17.5) gm/dL Hct (39.0-53.0) % MCV (80.0-100.0) fL MCH (25.0-35.0) pg MCHC (31.0-37.0) g/dL RDW (11.5-15.5) % Plt Count (150-450) k/uL MPV Neutrophils % % Lymphocytes % % Monocytes % % Eosinophils % % Basophils % % Neutrophils # (1.3-7.7) k/uL Lymphocytes # (1.0-4.8) k/uL Monocytes # (0-1.0) k/uL Eosinophils # (0-0.7) k/uL Basophils # (0-0.2) k/uL Hypochromasia PT (9.0-12.0) sec INR (<1.2) APTT (22.0-30.0) sec D-Dimer (<0.60) mg/L FEU Sodium (137-145) mmol/L Potassium (3.5-5.1) mmol/L Chloride (98-107) mmol/L Carbon Dioxide (22-30) mmol/L Anion Gap mmol/L BUN (9-20) mg/dL Creatinine (0.66-1.25) mg/dL Est GFR (CKD-EPI)AfAm (>60 ml/min/1.73 sqM) Est GFR (CKD-EPI)NonAf (>60 ml/min/1.73 sqM) Glucose (74-99) mg/dL POC Glucose (mg/dL) 245 H (75-99) mg/dL POC Glu Mechanical P[employer]ing Designer ID Antonio Scott Calcium (8.4-10.2) mg/dL Magnesium (1.6-2.3) mg/dL Total Bilirubin (0.2-1.3) mg/dL AST (17-59) U/L ALT (4-49) U/L Alkaline Phosphatase (38-126) U/L Troponin I 0.100 H* (0.000-0.034) ng/mL Total Protein (6.3-8.2) g/dL Albumin (3.5-5.0) g/dL Disposition Clinical Impression: Syncope, Elevated troponin, Elevated d-dimer, Hyperglycemia Disposition: ADMITTED IP TO THIS HOSP Condition: Undetermined Is patient prescribed a controlled substance at d/c from ED?: No Referrals: Baldev Ayers MD [Primary Care Provider] - 1-2 days
[2021-03-16 06:24] LABS: Partial Thromboplastin Time 26.6 sec (22.0-30.0); Prothrombin Time 10.8 sec (9.0-12.0)
[2021-03-16 06:27] LABS: D-Dimer 3.45 mg/L FEU (<0.60)
--- NOTE | 2021-03-16 06:34 | XR ---
EXAM: XR Chest, 1 View CLINICAL HISTORY: ITS.REASON XR Reason: syncope TECHNIQUE: Frontal view of the chest. COMPARISON: 10/01/2020 FINDINGS: Lungs: Unremarkable. No consolidation. Pleural space: Unremarkable. No pneumothorax. Heart: Unremarkable. No cardiomegaly. Mediastinum: Unremarkable. Bones/joints: Unremarkable. Lines: Tunneled right IJ central venous catheter with tip terminating at the cavoatrial junction. Left IJ central venous catheter with tip terminating at the cavoatrial junction. IMPRESSION: No acute pulmonary process
[2021-03-16] MEDS ORDERED: NALOXONE 0.4 MG/ML 1 ML VIAL IV PRN (06:53)
[2021-03-16] MEDS ORDERED: ACETAMINOPHEN TAB 325 MG TAB PO PRN (06:53)
[2021-03-16] MEDS ORDERED: ONDANSETRON 4 MG/2 ML VIAL IVP PRN (06:53)
[2021-03-16] MEDS ORDERED: MIDODRINE 5 MG TAB PO PRN (06:56)
[2021-03-16] MEDS ORDERED: INSULIN LISPRO (For Pump) 100 UNIT/ML VIAL SQ-PUMP SCH (08:00)
[2021-03-16] MEDS: FOLIC ACID-VIT B COMPLEX-VIT C 1 CAP PO SCH (08:11)
[2021-03-16] MEDS: MAGNESIUM OXIDE 400 MG TAB PO SCH (08:12)
[2021-03-16] MEDS: PANTOPRAZOLE 40 MG TABLET PO SCH ×2 (08:12→18:05)
[2021-03-16] MEDS: PREGABALIN 100 MG CAP PO SCH ×3 (08:39→21:47)
[2021-03-16] MEDS: SODIUM CHLORIDE 0.9% 1,000 ML IV SCH (08:40)
[2021-03-16] MEDS: oxyCODONE-APAP 10-325MG 1 EACH TAB PO PRN ×2 (08:40→18:27)
[2021-03-16] MEDS: FUROSEMIDE 80 MG TAB PO SCH ×2 (08:41→18:05)
[2021-03-16] MEDS ORDERED: APIXABAN 2.5 MG TABLET PO SCH (09:00)
[2021-03-16] MEDS ORDERED: amLODIPine 2.5 MG TAB PO SCH (09:00)
[2021-03-16] MEDS ORDERED: INSPUCOR MISCELLANE PRN (09:13)
[2021-03-16] MEDS ORDERED: INSULIN ASPART (NovoLOG) 100 UNIT/ML VIAL SQ PRN (09:13)
--- NOTE | 2021-03-16 09:30 | P.HPIM ---
History of Present Illness H&P Date: 03/16/21 Chief Complaint: syncope This is a 46-year-old male with complex past medical history noted below significant for end-stage renal disease on hemodialysis. Presented to the em ergency room after having a syncopal episode at home. Patient said that he was trying to transfer to his chair and felt dizzy and subsequently lost consciousness. Family member who was present at bedside witnessed the episode then told me that patient passed out completely for about a minute. He was unable to feed the patient pulse and yet for help immediately and start the chest compression. Subsequently, patient woke up and EMS arrived to transfer him to the hospital. Patient denies any chest pain or palpitation prior to the event. No headache. He is currently complaining of chest discomfort secondary to chest compression performed by family members. There was no seizure-like activity reported. No urine or bowel incontinence. Patient is on hemodialysis and told me that he get hemodialysis at home 5 times a week. He denies being dehydrated or having any diarrhea. He told me that his blood pressure is usually running on the lower side. He is diabetic and uses an insulin pump. Family members checked his blood glucose at the time of the event and he was in the 300 range. Patient was evaluated in the ER and will be placed in observation for further management. Review of Systems Review of system: 14 points review of systems were obtained and were negative except to what were mentioned in the HPI. Past Medical History Past Medical History: Diabetes Mellitus, Dialysis, GERD/Reflux, Hyperlipidemia, Renal Disease Additional Past Medical History / Comment(s): See Dr Freed H&P, peritoneal dialysis every night, constipation, anemia, kidney failure, History of Any Multi-Drug Resistant Organisms: None Reported Additional Past Surgical History / Comment(s): tom cataract, peritoneal dialysis catheter rt side, Past Anesthesia/Blood Transfusion Reactions: No Reported Reaction Past Psychological History: Anxiety Smoking Status: Never smoker Past Alcohol Use History: None Reported Past Drug Use History: None Reported - Past Family History Mother Family Medical History: Cancer Medications and Allergies Home Medications Medication Instructions Recorded Confirmed Type Atorvastatin [Lipitor] 40 mg PO HS 01/31/17 03/16/21 History Cyclobenzaprine [Flexeril] 5 mg PO TID 01/31/17 03/16/21 History Dialyvite 1 tab PO DAILY 01/31/17 03/16/21 History Ergocalciferol [Vitamin D2 50,000 unit PO Q14D 01/31/17 03/16/21 History (DRISDOL)] INSULIN LISPRO (For Pump) [humaLOG 0.01 units SQ-PUMP CONTINUOUS 01/31/17 03/16/21 History (For Pump)] Omeprazole [PriLOSEC] 20 mg PO BID 01/31/17 03/16/21 History Timolol [Betimol 0.5% Ophth Soln] 1 drop RIGHT EYE BID 01/31/17 03/16/21 History Furosemide [Lasix] 80 mg PO BID 10/01/20 03/16/21 History Pregabalin [Lyrica] 200 mg PO TID 10/01/20 03/16/21 History oxyCODONE-APAP 10-325MG [Percocet 1 tab PO Q6H 10/01/20 03/16/21 History 10-325 mg] Heparin Sodium,Porcine [Heparin 64,000 units MISCELLANE MOTUWEFRSA 03/16/21 03/16/21 History Sodium] Metoclopramide [Reglan] 5 mg PO TID-W/MEALS 03/16/21 03/16/21 History Midodrine HCl [ProAmatine] 10 mg PO TID 03/16/21 03/16/21 History Ondansetron HCl [Zofran] 4 mg PO BID 03/16/21 03/16/21 History Rivaroxaban [Xarelto] 2.5 mg PO BID 03/16/21 03/16/21 History Allergies Allergy/AdvReac Type Severity Reaction Status Date / Time No Known Allergies Allergy Verified 03/16/21 07:12 Physical Exam Vitals: Vital Signs Temp Pulse Resp BP Pulse Ox 03/16/21 08:00 79 15 98/77 93 L 03/16/21 06:42 82 18 109/80 95 03/16/21 05:37 97.9 F 91 18 90/68 95 Intake and Output 03/15/21 03/16/21 03/16/21 22:59 06:59 14:59 Other: Weight 99.1 kg General: The patient is awake and alert, in no distress Eye: there is normal conjunctiva bilaterally. Neck: The neck is supple, there is no JVD. Cardiovascular: Normal S1-S2, no S3-S4, no murmurs. Respiratory: Lungs clear to auscultation bilaterally Gastrointestinal: Abdomen is soft, nontender Musculoskeletal: There is no pedal edema on the left. There is right below knee amputation. Neurological:. Speech is normal. Skin: Skin is warm and dry Results CBC & Chem 7: 03/16/21 05:52 03/16/21 05:52 Labs: Abnormal Lab Results - Last 24 Hours (Table) 03/16/21 03/16/21 03/16/21 Range/Units 05:52 05:52 05:52 RBC 4.22 L (4.30-5.90) m/uL Hgb 12.6 L (13.0-17.5) gm/dL RDW 15.6 H (11.5-15.5) % D-Dimer 3.45 H (<0.60) mg/L FEU Sodium 134 L (137-145) mmol/L BUN 23 H (9-20) mg/dL Creatinine 6.00 H (0.66-1.25) mg/dL Glucose 256 H (74-99) mg/dL POC Glucose (mg/dL) (75-99) mg/dL Calcium 7.9 L (8.4-10.2) mg/dL AST 121 H (17-59) U/L Alkaline Phosphatase 155 H (38-126) U/L Troponin I (0.000-0.034) ng/mL 03/16/21 03/16/21 Range/Units 05:52 05:53 RBC (4.30-5.90) m/uL Hgb (13.0-17.5) gm/dL RDW (11.5-15.5) % D-Dimer (<0.60) mg/L FEU Sodium (137-145) mmol/L BUN (9-20) mg/dL Creatinine (0.66-1.25) mg/dL Glucose (74-99) mg/dL POC Glucose (mg/dL) 245 H (75-99) mg/dL Calcium (8.4-10.2) mg/dL AST (17-59) U/L Alkaline Phosphatase (38-126) U/L Troponin I 0.100 H* (0.000-0.034) ng/mL Assessment and Plan Assessment: 1. Syncopal episode, may be attributed to hypotension and dehydration. Unable to perform orthostatic blood pressure as patient has an amputation is unable to stand up. I asked the nurse to check blood pressure laying and sitting. Blood pressure on the lower side normally and patient is maintained on midodrine. We will continue telemetry monitoring. Echocardiogram and carotid Doppler for further evaluation. 2. Elevated d-dimer, nonspecific and expected in ESRD patient. Doubt PE. VQ scan ordered by ED staff 3. End-stage renal disease on hemodialysis, he should call me that he get hemodialysis 5 times a week. Nephrology consulted for further evaluation. Patient is on a low-dose of Rivaroxaban and at home as recommended by his vascular surgeon for his dialysis access 4. Type 2 diabetes on insulin pump. We will continue to monitor glucose closely 5. History of right below knee amputation 6. Morbid obesity
--- NOTE | 2021-03-16 10:35 | P.NPCON ---
History of Present Illness - Reason for Consult end stage renal disease - History of Present Illness Reason for consultation: End-stage renal disease History of present illness: The patient is a 46-year-old male seen in renal consultation for end-stage renal disease. Patient was seen and evaluated in the emergency room. Patient is maintained on home hemodialysis and undergoes hemodialysis 5 times per week. Last hemodialysis was on Friday. Patient states he tried to connect himself to the machine yesterday but had a syncopal episode. Family members performed CPR for about 1 minute. By the time EMS arrived patient was alert and oriented. He is currently awake and alert. Denies shortness of breath. Does admit to chest discomfort due to CPR. No vomiting or diarrhea. Oral intake is good. Patient states his blood pressure tends to run low and he is maintained on midodrine 3 times daily. Orthostatic vital signs were stable. Afebrile. Vital signs are stable. General: The patient appeared well nourished and normally developed. HEENT: Head exam is unremarkable. Neck is without jugular venous distension. LUNGS: Breath sounds decreased. HEART: Rate and Rhythm are regular. ABDOMEN: Soft, no distention. EXTREMITITES: Right BKA. No edema. Past Medical History Past Medical History: Diabetes Mellitus, Dialysis, GERD/Reflux, Hyperlipidemia, Renal Disease Additional Past Medical History / Comment(s): See Dr Freed H&P, peritoneal dialysis every night, constipation, anemia, kidney failure, History of Any Multi-Drug Resistant Organisms: None Reported Additional Past Surgical History / Comment(s): tom cataract, peritoneal dialysis catheter rt side, Past Anesthesia/Blood Transfusion Reactions: No Reported Reaction Past Psychological History: Anxiety Smoking Status: Never smoker Past Alcohol Use History: None Reported Past Drug Use History: None Reported - Past Family History Mother Family Medical History: Cancer Medications and Allergies Home Medications Medication Instructions Recorded Confirmed Type Atorvastatin [Lipitor] 40 mg PO HS 01/31/17 03/16/21 History Cyclobenzaprine [Flexeril] 5 mg PO TID 01/31/17 03/16/21 History Dialyvite 1 tab PO DAILY 01/31/17 03/16/21 History Ergocalciferol [Vitamin D2 50,000 unit PO Q14D 01/31/17 03/16/21 History (ERNESTINE)] INSULIN LISPRO (For Pump) [humaLOG 0.01 units SQ-PUMP CONTINUOUS 01/31/17 03/16/21 History (For Pump)] Omeprazole [PriLOSEC] 20 mg PO BID 01/31/17 03/16/21 History Timolol [Betimol 0.5% Ophth Soln] 1 drop RIGHT EYE BID 01/31/17 03/16/21 History Furosemide [Lasix] 80 mg PO BID 10/01/20 03/16/21 History Pregabalin [Lyrica] 200 mg PO TID 10/01/20 03/16/21 History oxyCODONE-APAP 10-325MG [Percocet 1 tab PO Q6H 10/01/20 03/16/21 History 10-325 mg] Heparin Sodium,Porcine [Heparin 64,000 units MISCELLANE MOTUWEFRSA 03/16/2102/18 History Sodium] Metoclopramide [Reglan] 5 mg PO TID-W/MEALS 03/16/21 03/16/21 History Midodrine HCl [ProAmatine] 10 mg PO TID 03/16/21 03/16/21 History Ondansetron HCl [Zofran] 4 mg PO BID 03/16/21 03/16/21 History Rivaroxaban [Xarelto] 2.5 mg PO BID 03/16/21 03/16/21 History Allergies Allergy/AdvReac Type Severity Reaction Status Date / Time No Known Allergies Allergy Verified 03/16/21 07:12 Physical Exam Vitals: Vital Signs Temp Pulse Pulse Pulse Pulse Resp BP 03/16/21 09:57 98 100 88 03/16/21 08:00 79 15 98/77 03/16/21 06:42 82 18 109/80 03/16/21 05:37 97.9 F 91 18 90/68 BP BP BP Pulse Ox 03/16/21 09:57 98/74 95/74 114/83 03/16/21 08:00 93 L 03/16/21 06:42 95 03/16/21 05:37 95 Intake and Output 03/15/21 03/16/21 03/16/21 22:59 06:59 14:59 Other: Weight 99.1 kg Results - Lab Results Most recent lab results Calcium 7.9 mg/dL (8.4-10.2) L 03/16/21 05:52 Magnesium 1.7 mg/dL (1.6-2.3) 03/16/21 05:52 03/16/21 05:52 03/16/21 05:52 Assessment and Plan Plan: Assessment: 1. End-stage renal disease maintained on home hemodialysis. Has a permacath. 2. Syncopal episode. Orthostatic vital signs stable. 3. Chronic hypotension maintained on midodrine. 4. Diabetes mellitus. 5. Status post right BKA. Plan: Hemodialysis today. Stop amlodipine. Resume midodrine. Check a.m. cortisol level. Echocardiogram and VQ scan pending. Thank you for the consultation. I will continue to follow the patient with you during his hospital stay.
--- NOTE | 2021-03-16 11:19 | NM ---
EXAMINATION TYPE: NM pul vent and perfuse DATE OF EXAM: 03/16/2021 COMPARISON: Chest x-ray same date HISTORY: Syncope, chest pain and difficulty breathing TECHNIQUE: Utilizing inhalation of 38.6 mCi Tc 99m DTPA aerosol and intravenous injection of 4.8 mCi of Tc 99m MAA, ventilation and perfusion images are acquired post injection in multiple projections. FINDINGS: Multiple mismatched ventilation/perfusion defects noted bilaterally. IMPRESSION: High probability for pulmonary embolism A Red level critical message alert has been initiated for Ermias Peña MD via the [employer] Critical Results System on 03/16/2021 11:16 AM. This message alert has been sent to Ermias elizondo MD via the preferences provided by the clinician for the receipt of Radiology Critical Findings. Henry essage ID [id number].
[2021-03-16] MEDS ORDERED: HEPARIN SODIUM 1,000 UN/ML (10ML VL) IV ONE (11:34)
[2021-03-16] MEDS ORDERED: HEPARIN SODIUM 1,000 UN/ML (10ML VL) IV PRN (11:34)
[2021-03-16] MEDS: HEPARIN SOD,PORK IN 0.45% NACL 25,000 UNIT in 0.45% NACL 1 250ML.BAG IV SCH (11:51)
[2021-03-16] MEDS ORDERED: INSULIN PUMP ACTIVE INSULIN 1 EACH MISC MISCELLANE PRN (11:52)
[2021-03-16] MEDS ORDERED: INSULIN PUMP BASAL RATES 1 EACH MISC MISCELLANE PRN (11:52)
[2021-03-16] MEDS ORDERED: INSULIN PUMP TARGET GLUCOSE 1 EACH MISC MISCELLANE PRN (11:52)
[2021-03-16 12:10] LABS: Glucose,Whole Blood 156 mg/dL (75-99)
[2021-03-16 12:34] LABS: INR 1.1 (<1.2); Partial Thromboplastin Time 25.8 sec (22.0-30.0); Prothrombin Time 11.1 sec (9.0-12.0)
[2021-03-16] MEDS: INSULIN PUMP MEAL BOLUS 1 UNIT MISC MISCELLANE SCH ×3 (12:50→20:38)
--- NOTE | 2021-03-16 13:15 | P.CRDCN ---
History of Present Illness Consult date: 03/16/21 Chief complaint: Syncopal episode History of present illness: This is a very pleasant 46-year-old gentleman who sees Dr. Freed regularly with a past medical history significant for hypertension as well as dyslipidemia as well as chronic kidney disease currently on hemodialysis was brought by his family to the emergency department after he had a syncopal episode at home. The patient stated that he was in his usual state of health when he woke up early this morning and trying to get out of the bed at suddenly he fell and lost his consciousness. He did not feel any symptoms of dizziness or lightheadedness and no symptoms of warm feeling. His family did CPR on him for few minutes before ambulance arrived and the patient was brought to the emergency department. Early or 2 that he describes chest discomfort/chest pressure. The patient was brought to the emergency department. The EKG showed sinus rhythm with T-wave inversion in V1/V2/V3. The EKG changes are definitely new compared to before. The troponin came in to be slightly abnormal. Currently the patient is chest pain-free. Because d-dimer came in to be abnormal subsequently VQ scan of the chest was performed and showed high-priority for PE. The patient is in process of having a CTA at this point. The blood pressure is marginal. He underwent an echocardiogram which I reviewed and showed slightly dilated right ventricle but there is no evidence of RV strain by the echocardiogram. Currently the patient is on heparin IV. He is asymptomatic. At this point we'll continue the heparin IV until we have a final report regarding the CTA. If the CT echo from the PE we'll continue to heparin IV and switch him to oral anticoagulation in the next 12-24 hours. If the CTA did not show any evidence of PE I would consider doing coronary angiogram getting the EKG changes which are concerning for severe underlying coronary artery disease and also could be related to PE. Past Medical History Past Medical History: Diabetes Mellitus, Dialysis, GERD/Reflux, Hyperlipidemia, Renal Disease Additional Past Medical History / Comment(s): See Dr Freed H&P, peritoneal dialysis every night, constipation, anemia, kidney failure, History of Any Multi-Drug Resistant Organisms: None Reported Additional Past Surgical History / Comment(s): tom cataract, peritoneal dialysis catheter rt side, Past Anesthesia/Blood Transfusion Reactions: No Reported Reaction Past Psychological History: Anxiety Smoking Status: Never smoker Past Alcohol Use History: None Reported Past Drug Use History: None Reported - Past Family History Mother Family Medical History: Cancer Medications and Allergies Home Medications Medication Instructions Recorded Confirmed Type Atorvastatin [Lipitor] 40 mg PO HS 01/31/17 03/16/21 History Cyclobenzaprine [Flexeril] 5 mg PO TID 01/31/17 03/16/21 History Dialyvite 1 tab PO DAILY 01/31/17 03/16/21 History Ergocalciferol [Vitamin D2 50,000 unit PO Q14D 01/31/17 03/16/21 History (DRISDOL)] INSULIN LISPRO (For Pump) [humaLOG 0.01 units SQ-PUMP CONTINUOUS 01/31/17 03/16/21 History (For Pump)] Omeprazole [PriLOSEC] 20 mg PO BID 01/31/17 03/16/21 History Timolol [Betimol 0.5% Ophth Soln] 1 drop RIGHT EYE BID 01/31/17 03/16/21 History Furosemide [Lasix] 80 mg PO BID 10/01/20 03/16/21 History Pregabalin [Lyrica] 200 mg PO TID 10/01/20 03/16/21 History oxyCODONE-APAP 10-325MG [Percocet 1 tab PO Q6H 10/01/20 03/16/21 History 10-325 mg] Heparin Sodium,Porcine [Heparin 64,000 units MISCELLANE MOTUWEFRSA 03/16/21 03/16/21 History Sodium] Metoclopramide [Reglan] 5 mg PO TID-W/MEALS 03/16/21 03/16/21 History Midodrine HCl [ProAmatine] 10 mg PO TID 03/16/21 03/16/21 History Ondansetron HCl [Zofran] 4 mg PO BID 03/16/21 03/16/21 History Rivaroxaban [Xarelto] 2.5 mg PO BID 03/16/21 03/16/21 History Allergies Allergy/AdvReac Type Severity Reaction Status Date / Time No Known Allergies Allergy Verified 03/16/21 07:12 Physical Exam Vitals: Vital Signs Temp Pulse Pulse Pulse Pulse Resp BP 03/16/21 11:55 98 F 85 20 105/67 03/16/21 09:57 98 100 88 03/16/21 08:00 79 15 98/77 03/16/21 06:42 82 18 109/80 03/16/21 05:37 97.9 F 91 18 90/68 BP BP BP Pulse Ox 03/16/21 11:55 92 L 03/16/21 09:57 98/74 95/74 114/83 03/16/21 08:00 93 L 03/16/21 06:42 95 03/16/21 05:37 95 Intake and Output 03/15/21 03/16/21 03/16/21 22:59 06:59 14:59 Other: Weight 99.1 kg - Constitutional General appearance: no acute distress - Respiratory Respiratory: bilateral: diminished - Cardiovascular Rhythm: regular Heart sounds: normal: S1, S2 Abnormal Heart Sounds: systolic murmur Results 03/16/21 05:52 03/16/21 05:52 Cardiac Enzymes 03/16/21 03/16/21 03/16/21 Range/Units 05:52 05:52 09:02 AST 121 H (17-59) U/L Troponin I 0.100 H* 0.106 H* (0.000-0.034) ng/mL 03/16/21 Range/Units 12:09 AST (17-59) U/L Troponin I 0.114 H* (0.000-0.034) ng/mL Coagulation 03/16/21 03/16/21 Range/Units 05:52 12:09 PT 10.8 11.1 (9.0-12.0) sec APTT 26.6 25.8 (22.0-30.0) sec CBC 03/16/21 Range/Units 05:52 WBC 10.3 (3.8-10.6) k/uL RBC 4.22 L (4.30-5.90) m/uL Hgb 12.6 L (13.0-17.5) gm/dL Hct 40.6 (39.0-53.0) % Plt Count 187 (150-450) k/uL Comprehensive Metabolic Panel 03/16/21 Range/Units 05:52 Sodium 134 L (137-145) mmol/L Potassium 4.4 (3.5-5.1) mmol/L Chloride 98 (98-107) mmol/L Carbon Dioxide 28 (22-30) mmol/L BUN 23 H (9-20) mg/dL Creatinine 6.00 H (0.66-1.25) mg/dL Glucose 256 H (74-99) mg/dL Calcium 7.9 L (8.4-10.2) mg/dL AST 121 H (17-59) U/L ALT 32 (4-49) U/L Alkaline Phosphatase 155 H (38-126) U/L Total Protein 6.4 (6.3-8.2) g/dL Albumin 3.7 (3.5-5.0) g/dL Current Medications Generic Name Dose Route Start Last Admin Trade Name Freq PRN Reason Stop Dose Admin Acetaminophen 650 mg 03/16/21 06:53 Acetaminophen Tab 325 Mg Tab PO Q6HR PRN Mild Pain or Fever > 100.5 Atorvastatin Calcium 40 mg 03/16/21 21:00 Atorvastatin 40 Mg Tab PO HS GABY Ergocalciferol 1,250 mcg 03/22/21 09:00 Ergocalciferol 1,250 Mcg (50,000 Iu) Capsule PO Q14D GABY Furosemide 80 mg 03/16/21 09:00 03/16/21 08:41 Furosemide 80 Mg Tab PO 80 mg 0900,1700 GABY Administration Heparin Sodium (Porcine) 0 unit 03/16/21 11:34 Heparin Sodium 1,000 Un/Ml (10ml Vl) IV PER PROTOCOL PRN Low PTT Protocol Sodium Chloride 1,000 mls @ 20 mls/hr 03/16/21 07:00 03/16/21 08:40 Saline 0.9% IV 20 mls/hr .Q24H GABY Administration Heparin Sodium/Sodium Chloride 250 mls @ 17.838 mls/hr 03/16/21 11:45 03/16/21 11:51 25,000 unit/ Sodium Chloride IV 18 units/kg/hr .Q14H1M GABY 17.838 mls/hr Administration Protocol 18 UNITS/KG/HR Insulin Aspart 0 unit 03/16/21 09:13 Insulin Aspart (Novolog) 100 Unit/Ml Vial SQ DAILY PRN Insulin Pump Replacement Magnesium Oxide 400 mg 03/16/21 09:00 03/16/21 08:12 Magnesium Oxide 400 Mg Tab PO 400 mg DAILY GABY Administration Midodrine 10 mg 03/16/21 12:30 Midodrine 5 Mg Tab PO AC-TID GABY Miscellaneous Information 0 unit 03/16/21 09:13 Insulin Pump Correction Bolus 1 Unit Misc MISCELLANE ACHS PRN Blood Sugar - High Protocol Miscellaneous Information 1 each 03/16/21 11:52 Insulin Pump Basal Rates 1 Each Misc MISCELLANE Q6HR PRN Blood Sugar - High Protocol Miscellaneous Information 0 unit 03/16/21 12:30 03/16/21 12:50 Insulin Pump Meal Bolus 1 Unit Misc MISCELLANE Not Given ACHS GABY Protocol Miscellaneous Information 1 each 03/16/21 11:52 Insulin Pump Active Insulin 1 Each Misc MISCELLANE ACHS PRN Blood Sugar - High Protocol Miscellaneous Information 1 each 03/16/21 11:52 Insulin Pump Target Glucose 1 Each Misc MISCELLANE ACHS PRN Blood Sugar - High Protocol Multivit/Ca Carb/B Cmplx/FA/Prenat 1 each 03/16/21 09:00 03/16/21 08:11 Folic Acid-Vit B Complex-Vit C 1 Cap PO 1 each DAILY GABY Administration Naloxone HCl 0.2 mg 03/16/21 06:53 Naloxone 0.4 Mg/Ml 1 Ml Vial IV Q2M PRN Opioid Reversal Ondansetron HCl 4 mg 03/16/21 06:53 Ondansetron 4 Mg/2 Ml Vial IVP Q8HR PRN Nausea And Vomiting Oxycodone/Acetaminophen 1 each 03/16/21 06:56 03/16/21 08:40 Oxycodone-Apap 10-325mg 1 Each Tab PO 1 each Q4H PRN Administration Pain Pantoprazole Sodium 40 mg 03/16/21 07:30 03/16/21 08:12 Pantoprazole 40 Mg Tablet PO 40 mg AC-BID GABY Administration Pregabalin 200 mg 03/16/21 09:00 03/16/21 08:39 Pregabalin 100 Mg Cap PO 200 mg TID GABY Administration Timolol Maleate 1 drops 03/16/21 09:00 Timolol 0.5% Ophth Drops 5 Ml Btl RIGHT EYE BID GABY Intake and Output 03/15/21 03/16/21 03/16/21 22:59 06:59 14:59 Other: Weight 99.1 kg 03/16/21 05:52 03/16/21 05:52 Assessment and Plan Assessment: Assessment #1 syncopal episode #2 possible pulmonary embolism #3 abnormal cardiac enzymes could be secondary to the above #4 EKG changes with a differential diagnosis of PE causing the changes versus severe CAD #4 chronic kidney disease on hemodialysis #5 multiple comorbid conditions Plan #1 continue the IV heparin for now #2 follow-up on the echocardiogram #3 follow-up on the CTA #4 follow-up with the patient and further recommendation to follow.
--- NOTE | 2021-03-16 13:16 | CT ---
EXAMINATION TYPE: CT chest angio for PE DATE OF EXAM: 03/16/2021 COMPARISON: All VQ scan from 03/16/2021 HISTORY: Shortness of breath and abnormal NM. CT DLP: 702.4 mGycm CONTRAST: CT chest with contrast and 3D reconstruction with MIP imaging is performed with IV Contrast, patient injected with 100 mL of Isovue 370. Contrast-enhanced CT of the chest was performed through the course of the pulmonary arteries with saw g and mediastinal window settings submitted. 3D reconstruction with MIP imaging was also performed. PULMONARY ARTERIES: There are multiple filling defects noted within the main pulmonary arteries as we ll as second and third order branches bilaterally. There is evidence of saddle component. There is fl attening of the intraventricular septum and reflux into the hepatic IVC and I cannot exclude right ve ntricular strain. LUNGS: Basilar atelectasis and small effusions. MEDIASTINUM: Thoracic aorta is of normal caliber,however, evaluation is limited given timing of the contrast bolus. If there is concern for thoracic aortic pathology consider ANNABELLE. Correlate clinicall y . The heart is not enlarged. No evidence for mediastinal mass. No mediastinal lymph nodes greater than 1cm. HILAR STRUCTURES: No evidence for mass. No hilar lymph nodes greater than 1 cm. UPPER ABDOMEN: No significant abnormality is seen. IMPRESSION: 1. Positive for pulmonary embolism. There are multiple filling defects noted within the main pulmona ry arteries as well as second and third order branches bilaterally. There is evidence of saddle compo nent. 2. Right ventricular strain is difficult to exclude.
[2021-03-16] MEDS: MIDODRINE 5 MG TAB PO SCH ×2 (14:15→18:05)
[2021-03-16] MEDS: TIMOLOL 0.5% OPHTH DROPS 5 ML BTL RIGHT EYE SCH ×2 (14:51→20:42)
[2021-03-16 17:29] LABS: Glucose,Whole Blood 119 mg/dL (75-99)
[2021-03-16 20:05] LABS: Glucose,Whole Blood 93 mg/dL (75-99)
[2021-03-16] MEDS: CYCLOBENZAPRINE 5 MG TAB PO SCH (20:42)
[2021-03-16] MEDS: ATORVASTATIN 40 MG TAB PO SCH (20:42)
[2021-03-16] MEDS ORDERED: RIVAROXABAN 2.5 MG TABLET PO SCH (21:00)
[2021-03-17 02:00] LABS: Glucose,Whole Blood 84 mg/dL (75-99)
[2021-03-17] MEDS: oxyCODONE-APAP 10-325MG 1 EACH TAB PO PRN ×4 (03:25→20:16)
[2021-03-17] MEDS: HEPARIN SOD,PORK IN 0.45% NACL 25,000 UNIT in 0.45% NACL 1 250ML.BAG IV SCH (04:50)
[2021-03-17 06:09] LABS: Glucose,Whole Blood 111 mg/dL (75-99)
[2021-03-17] MEDS: MIDODRINE 5 MG TAB PO SCH ×3 (07:03→17:53)
[2021-03-17] MEDS: PANTOPRAZOLE 40 MG TABLET PO SCH ×2 (07:03→17:53)
[2021-03-17] MEDS: SODIUM CHLORIDE 0.9% 1,000 ML IV SCH (07:06)
[2021-03-17] MEDS: MAGNESIUM OXIDE 400 MG TAB PO SCH (08:26)
[2021-03-17] MEDS: TIMOLOL 0.5% OPHTH DROPS 5 ML BTL RIGHT EYE SCH ×2 (08:26→20:16)
[2021-03-17] MEDS: PREGABALIN 100 MG CAP PO SCH ×3 (08:26→22:03)
[2021-03-17] MEDS: FOLIC ACID-VIT B COMPLEX-VIT C 1 CAP PO SCH (08:26)
[2021-03-17] MEDS: FUROSEMIDE 80 MG TAB PO SCH ×2 (08:26→17:53)
[2021-03-17] MEDS: CYCLOBENZAPRINE 5 MG TAB PO SCH ×3 (08:26→22:03)
[2021-03-17] MEDS: INSULIN PUMP MEAL BOLUS 1 UNIT MISC MISCELLANE SCH ×4 (08:30→22:01)
[2021-03-17 08:42] LABS: Glucose,Whole Blood 132 mg/dL (75-99)
[2021-03-17 09:19] LABS: Anisocytosis Slight; Basophils # (A) 0.1 k/uL (0-0.2); Basophils % (A) 1 %; Eosinophils # (A) 0.4 k/uL (0-0.7); Eosinophils % (A) 4 %; HGB 12.1 gm/dL (13.0-17.5); Hypochromasia Marked; Lymphocytes # (A) 2.6 k/uL (1.0-4.8); Lymphocytes % (A) 27 %; MCH 28.6 pg (25.0-35.0); MCHC 29.4 g/dL (31.0-37.0); MCV 97.2 fL (80.0-100.0); Macrocytosis Slight; Mean Platelet Volume 10.1; Monocytes # (A) 0.5 k/uL (0-1.0); Monocytes % (A) 5 %; Neutrophils # (A) 6.1 k/uL (1.3-7.7); Neutrophils % (A) 61 %; Platelet Count 199 k/uL (150-450); RBC 4.22 m/uL (4.30-5.90); RDW 16.3 % (11.5-15.5); WBC 9.9 k/uL (3.8-10.6)
--- NOTE | 2021-03-17 10:19 | US ---
EXAMINATION TYPE: US carotid duplex BILAT DATE OF EXAM: 03/17/2021 COMPARISON: NONE CLINICAL HISTORY: syncope. Difficult exam as patient is talking during test. Limited exam as Dr. Jovanny machuca came into the room and told me to stop the exam and that it should be cancelled. I am unable to c ancel the exam as I had already touched the patient and completed half of the test. EXAM MEASUREMENTS: RIGHT: Peak Systolic Velocity (PSV) cm/sec ----- Right CCA: 96.1 ----- Right ICA: 63.7 ----- Right ECA: 84.5 ICA/CCA ratio: 0.6 RIGHT: End Diastole cm/sec ----- Right CCA: 22.1 ----- Right ICA: 24.7 ----- Right ECA: 0.0 VERTEBRALS (direction of flow): Right Vertebral: Antegrade Rhythm: Normal Exam is incomplete. Exam was canceled per the casing mixer. .
--- NOTE | 2021-03-17 10:59 | P.PN ---
Subjective Progress Note Date: 03/17/21 Patient is doing fairly well today. He denies any significant shortness of breath or chest pain. Patient was on 8 L of oxygen when I saw him but when I checked his O2 sat is 97%. I lowered his oxygen to 5 L and instructed nursing staff to wean off O2 as tolerated for O2 sats greater than 90%. Objective - Vital Signs Vital signs: Vital Signs Temp 97.4 F L 03/17/21 08:25 Pulse 85 03/17/21 08:25 Resp 18 03/17/21 08:25 BP 128/77 03/17/21 08:25 Pulse Ox 92 L 03/17/21 08:25 Intake & Output 03/16/21 03/17/21 03/17/21 18:59 06:59 18:59 Intake Total 1250.000 184.844 Output Total 0 0 Balance 1250.000 184.844 Weight 99.1 kg Intake: Intake, IV Titration 250.000 64.844 Amount Heparin Sod,Pork in 0.45% 250.000 64.844 NaCl 25,000 unit In 0.45 % NaCl 1 250ml.bag @ 18 UNITS/KG/HR 17.838 mls/hr IV .Q14H1M [facility] Rx#: [id number] Oral 120 Hemodialysis 1000 Output: Urine 0 0 Other: Voiding Method Urinal - Exam General: The patient is awake and alert, in no distress Eye: there is normal conjunctiva bilaterally. Neck: The neck is supple, there is no JVD. Cardiovascular: Normal S1-S2, no S3-S4, no murmurs. Respiratory: Lungs clear to auscultation bilaterally Gastrointestinal: Abdomen is soft, nontender Musculoskeletal: There is no pedal edema on the left. The right BKA on the right Neurological:. Speech is normal. Skin: Skin is warm and dry - Labs CBC & Chem 7: 03/17/21 08:41 03/16/21 05:52 Labs: Abnormal Lab Results - Last 24 Hours (Table) 03/16/21 03/16/21 03/16/21 Range/Units 09:02 11:59 12:09 RBC (4.30-5.90) m/uL Hgb (13.0-17.5) gm/dL MCHC (31.0-37.0) g/dL RDW (11.5-15.5) % APTT (22.0-30.0) sec POC Glucose (mg/dL) 156 H (75-99) mg/dL Troponin I 0.106 H* 0.114 H* (0.000-0.034) ng/mL 03/16/21 03/16/21 03/17/21 Range/Units 17:27 17:35 01:30 RBC (4.30-5.90) m/uL Hgb (13.0-17.5) gm/dL MCHC (31.0-37.0) g/dL RDW (11.5-15.5) % APTT >200.0 H* 68.3 H (22.0-30.0) sec POC Glucose (mg/dL) 119 H (75-99) mg/dL Troponin I (0.000-0.034) ng/mL 03/17/21 03/17/21 03/17/21 Range/Units 06:07 08:40 08:41 RBC 4.22 L (4.30-5.90) m/uL Hgb 12.1 L (13.0-17.5) gm/dL MCHC 29.4 L (31.0-37.0) g/dL RDW 16.3 H (11.5-15.5) % APTT (22.0-30.0) sec POC Glucose (mg/dL) 111 H 132 H (75-99) mg/dL Troponin I (0.000-0.034) ng/mL 03/17/21 Range/Units 08:41 RBC (4.30-5.90) m/uL Hgb (13.0-17.5) gm/dL MCHC (31.0-37.0) g/dL RDW (11.5-15.5) % APTT 46.4 H (22.0-30.0) sec POC Glucose (mg/dL) (75-99) mg/dL Troponin I (0.000-0.034) ng/mL Assessment and Plan Assessment: This is a 46-year-old male with very complex past medical history noted below who presented to the emergency room after having syncopal episode at home. Patient was evaluated in the ER and admitted to the hospital for further management of his medical problems noted below. 1. Acute PE, involving the main pulmonary arteries as well as second and third branches bilaterally. There is evidence of saddle component. Vascular surgery consulted for further evaluation. No evidence of right ventricular strain on CT or echocardiogram. Patient was started on anticoagulation with IV heparin. We will continue for at least 48 hours. May transition to Rivaroxaban tomorrow. 2. Syncopal episode, secondary to #1 3. End-stage renal disease on hemodialysis, patient informed me he gets hemodialysis 5 times a week at home. Nephrology consulted for further evaluation. 4. Type 2 diabetes on insulin pump. We will continue to monitor glucose closely 5. History of right below knee amputation 6. Morbid obesity Today, I reviewed his medication list and lab work results. Awaiting echocardiogram report. Dr. Dewey told me yesterday that he did not notice significant for right ventricular strain. We will continue current management otherwise. Appreciate child welfare consultant's recommendations.
--- NOTE | 2021-03-17 12:06 | P.PN ---
Subjective Principal diagnosis: Patient looks comfortable. He's been diagnosed with submassive pulmonary embolism He has a little better chest discomfort but he does not appear short of breath, no respiratory distress at this time He presented with an episode of syncope He had arm surgery recently about 2 weeks back He had a stress test almost a month back at [facility]. I do not know the results of that stress test. He was cleared for surgery at that time Currently he is on high-dose heparin His blood pressure was in the high 90s this morning it is 128/77 afebrile 97.4F Pulse rate in the 80s Breath sounds are reduced bilaterally S1-S2 is normal no murmurs no S3 gallop no RV S3 I reviewed the 2-D echo and Doppler study shows a dilated right ventricle with severe hypokinesis consistent with the extent of pulmonary embolism Hemoglobin 12.1 Sodium 134, potassium 4.4 BUN 23 creatinine 6.0 Troponin 0.114 Recommend Continue IV heparin I put in a consult for Dr. Turner, for EKOS I canceled the carotid artery ultrasound. I don't see any indication for it in the setting of submassive pulmonary embolism that presented as syncope Objective - Vital Signs Vital signs: Vital Signs Temp 97.4 F L 03/17/21 08:25 Pulse 85 03/17/21 08:25 Resp 18 03/17/21 08:25 BP 128/77 03/17/21 08:25 Pulse Ox 92 L 03/17/21 08:25 Intake & Output 03/16/21 03/17/21 03/17/21 18:59 06:59 18:59 Intake Total 1250.000 184.844 Output Total 0 0 Balance 1250.000 184.844 Weight 99.1 kg Intake: Intake, IV Titration 250.000 64.844 Amount Heparin Sod,Pork in 0.45% 250.000 64.844 NaCl 25,000 unit In 0.45 % NaCl 1 250ml.bag @ 18 UNITS/KG/HR 17.838 mls/hr IV .Q14H1M [facility] Rx#: [id number] Oral 120 Hemodialysis 1000 Output: Urine 0 0 Other: Voiding Method Urinal Urinal - Labs CBC & Chem 7: 03/17/21 08:41 03/16/21 05:52 Labs: Abnormal Lab Results - Last 24 Hours (Table) 05/03/16/21 03/16/21 Range/Units 11:59 12:09 17:27 RBC (4.30-5.90) m/uL Hgb (13.0-17.5) gm/dL MCHC (31.0-37.0) g/dL RDW (11.5-15.5) % APTT (22.0-30.0) sec POC Glucose (mg/dL) 156 H 119 H (75-99) mg/dL Troponin I 0.114 H* (0.000-0.034) ng/mL 03/16/21 03/17/21 03/17/21 Range/Units 17:35 01:30 06:07 RBC (4.30-5.90) m/uL Hgb (13.0-17.5) gm/dL MCHC (31.0-37.0) g/dL RDW (11.5-15.5) % APTT >200.0 H* 68.3 H (22.0-30.0) sec POC Glucose (mg/dL) 111 H (75-99) mg/dL Troponin I (0.000-0.034) ng/mL 03/17/21 03/17/21 03/17/21 Range/Units 08:40 08:41 08:41 RBC 4.22 L (4.30-5.90) m/uL Hgb 12.1 L (13.0-17.5) gm/dL MCHC 29.4 L (31.0-37.0) g/dL RDW 16.3 H (11.5-15.5) % APTT 46.4 H (22.0-30.0) sec POC Glucose (mg/dL) 132 H (75-99) mg/dL Troponin I (0.000-0.034) ng/mL
[2021-03-17 12:37] LABS: Glucose,Whole Blood 128 mg/dL (75-99)
--- NOTE | 2021-03-17 13:50 | PN ---
PROGRESS NOTE Patient is seen for followup for end-stage renal disease. He was dialyzed yesterday. We had about 1 L of fluid removed. The patient is maintained on hemodialysis at home. He was admitted with shortness of breath and found to have large PE. Multiple filling defects noted in the pulmonary arteries and as well as a saddle component. Currently maintained on IV heparin. The patient was maintained on Xarelto at home prior to admission. This was mostly secondary to issues with clotting in relation to the access for dialysis. ASSESSMENT: 1. Peripheral vascular disease. 2. History of recent Covid infection currently resolved. 3. Mild volume overload status post dialysis yesterday. The patient is doing well. His respiratory symptoms were mostly related to the pulmonary embolism. 4. Acute pulmonary embolism, maintained on IV heparin. 5. Chronic kidney disease mineral bone disorder. PLAN: Continue anticoagulation. Next hemodialysis will be Friday. MMBRENNANL / ODESSAN: [id number] /
[2021-03-17 15:46] LABS: Appearance,Urine Clear (Clear); Bacteria,Urine Rare /hpf; Bilirubin,Urine Negative (Negative); Blood,Urine Negative (Negative); Color,Urine Yellow; Glucose,Urine (UA) Trace (Negative); Ketones,Urine Negative (Negative); Leukocyte Esterase,Urine Large (Negative); Mucus,Urine Rare /hpf; Nitrite,Urine Negative (Negative); Protein,Urine 2+ (Negative); Specific Gravity,Urine 1.011 (1.001-1.035); Squamous Epithelial Cell,Urine <1 /hpf (0-4); Urobilinogen,Urine <2.0 mg/dL (<2.0); WBC,Urine 32 /hpf (0-5)
--- NOTE | 2021-03-17 15:54 | P.GSCN ---
History of Present Illness Consult date: 03/17/21 Reason for Consult: Saddle PE History of present illness: This is a very pleasant 46-year-old gentleman with history of peripheral vascular disease, right below-knee amputation, end-stage renal disease on hemodialysis via a right-sided tunneled catheter, multiple attempts at left upper extremity fistula creation at [facility]. Patient states he was having hemodialysis and his family and bringing him in for altered mental status. Patient states he passed out and his family did compressions on him prior to bringing to the emergency department. The patient was brought to the emergency department. During his workup he had an elevated d-dimer and VQ scan which showed high-priority for PE. He recently obtained a CT angiogram of the chest which demonstrated saddle PE. He states currently his chest pain is improved and his breathing is improving over the last day and is now down to 5 L. He denies any fevers, chills. Per cardiology notes patient had an echo which was negative for heart strain though it did show some dilated right heart. Currently the patient is on heparin IV and doing well. Review of Systems All systems: negative (What is mentioned in the HPI or past medical history) Past Medical History Past Medical History: Diabetes Mellitus, Dialysis, GERD/Reflux, Hyperlipidemia, Renal Disease Additional Past Medical History / Comment(s): See Dr Freed H&P, peritoneal dialysis every night, constipation, anemia, kidney failure, History of Any Multi-Drug Resistant Organisms: None Reported Additional Past Surgical History / Comment(s): tom cataract, peritoneal dialysis catheter rt side, Past Anesthesia/Blood Transfusion Reactions: No Reported Reaction Past Psychological History: Anxiety Smoking Status: Never smoker Past Alcohol Use History: None Reported Past Drug Use History: None Reported - Past Family History Mother Family Medical History: Cancer Father Family Medical History: Dementia Medications and Allergies Home Medications Medication Instructions Recorded Confirmed Type Atorvastatin [Lipitor] 40 mg PO HS 01/31/17 03/16/21 History Cyclobenzaprine [Flexeril] 5 mg PO TID 01/31/17 03/16/21 History Dialyvite 1 tab PO DAILY 01/31/17 03/16/21 History Ergocalciferol [Vitamin D2 50,000 unit PO Q14D 01/31/17 03/16/21 History (ERNESTINE)] INSULIN LISPRO (For Pump) [humaLOG 0.01 units SQ-PUMP CONTINUOUS 01/31/17 03/16/21 History (For Pump)] Omeprazole [PriLOSEC] 20 mg PO BID 01/31/17 03/16/21 History Timolol [Betimol 0.5% Ophth Soln] 1 drop RIGHT EYE BID 01/31/17 03/16/21 History Furosemide [Lasix] 80 mg PO BID 10/01/20 03/16/21 History Pregabalin [Lyrica] 200 mg PO TID 10/01/20 03/16/21 History oxyCODONE-APAP 10-325MG [Percocet 1 tab PO Q6H 10/01/20 03/16/21 History 10-325 mg] Heparin Sodium,Porcine [Heparin 64,000 units MISCELLANE MOTUWEFRSA 03/16/21 03/16/21 History Sodium] Metoclopramide [Reglan] 5 mg PO TID-W/MEALS 03/16/21 03/16/21 History Midodrine HCl [ProAmatine] 10 mg PO TID 03/16/21 03/16/21 History Ondansetron HCl [Zofran] 4 mg PO BID 03/16/21 03/16/21 History Rivaroxaban [Xarelto] 2.5 mg PO BID 03/16/21 03/16/21 History Allergies Allergy/AdvReac Type Severity Reaction Status Date / Time No Known Allergies Allergy Verified 03/16/21 07:12 Surgical - Exam Vital Signs Temp Pulse Resp BP Pulse Ox 97.9 F 91 18 90/68 95 03/16/21 05:37 03/16/21 05:37 03/16/21 05:37 03/16/21 05:37 03/16/21 05:37 - General well developed, well nourished, no distress - Eyes PERRL - ENT normal pinna - Neck no masses - Respiratory On nasal cannula 5 L. Does not appear to be in distress normal expansion - Cardiovascular Rhythm: regular - Abdomen Abdomen: soft, non tender - Integumentary no rash - Psychiatric oriented to time, oriented to person, oriented to place, speech is normal Right below-knee amputation is well-healed. Capillary refill left foot noted Multiple scars in the left upper extremity from previous fistula creation and grafts Results - Labs 03/17/21 08:41 03/16/21 05:52 Abnormal Lab Results - Last 24 Hours (Table) 03/16/21 03/16/21 03/17/21 Range/Units 17:27 17:35 01:30 RBC (4.30-5.90) m/uL Hgb (13.0-17.5) gm/dL MCHC (31.0-37.0) g/dL RDW (11.5-15.5) % APTT >200.0 H* 68.3 H (22.0-30.0) sec POC Glucose (mg/dL) 119 H (75-99) mg/dL 03/17/21 03/17/21 03/17/21 Range/Units 06:07 08:40 08:41 RBC 4.22 L (4.30-5.90) m/uL Hgb 12.1 L (13.0-17.5) gm/dL MCHC 29.4 L (31.0-37.0) g/dL RDW 16.3 H (11.5-15.5) % APTT (22.0-30.0) sec POC Glucose (mg/dL) 111 H 132 H (75-99) mg/dL 03/17/21 03/17/21 Range/Units 08:41 12:36 RBC (4.30-5.90) m/uL Hgb (13.0-17.5) gm/dL MCHC (31.0-37.0) g/dL RDW (11.5-15.5) % APTT 46.4 H (22.0-30.0) sec POC Glucose (mg/dL) 128 H (75-99) mg/dL - Imaging CT scan - chest: image reviewed Assessment and Plan Assessment: #1 pulmonary embolism bilateral #2 syncopal episode #3 severe peripheral arterial disease with history of right below-knee amputation #4 end-stage renal disease on hemodialysis Plan: Agree with continued anticoagulation and would transition to oral anticoagulation as soon as possible. I reviewed the CT angiogram which does demonstrate significant thrombus burden but due to the fact that he is improving and his oxygen requirements have decreased to 5 L I would continue to manage medically. There is no evidence on echo that demonstrates heart strain and therefore no indication for EKOS. Thank you for the consultation and if there are any questions feel free to call.
[2021-03-17 17:58] LABS: Glucose,Whole Blood 194 mg/dL (75-99)
[2021-03-17] MEDS: ATORVASTATIN 40 MG TAB PO SCH (20:16)
[2021-03-17 21:59] LABS: Glucose,Whole Blood 171 mg/dL (75-99)
[2021-03-18] MEDS: HEPARIN SOD,PORK IN 0.45% NACL 25,000 UNIT in 0.45% NACL 1 250ML.BAG IV SCH ×2 (00:44→21:44)
[2021-03-18 02:01] LABS: Glucose,Whole Blood 140 mg/dL (75-99)
[2021-03-18] MEDS: oxyCODONE-APAP 10-325MG 1 EACH TAB PO PRN ×4 (03:24→21:42)
[2021-03-18] MEDS: PANTOPRAZOLE 40 MG TABLET PO SCH ×2 (06:38→16:38)
[2021-03-18] MEDS: MIDODRINE 5 MG TAB PO SCH ×3 (06:38→16:42)
[2021-03-18] MEDS: SODIUM CHLORIDE 0.9% 1,000 ML IV SCH (06:40)
[2021-03-18 07:26] LABS: Glucose,Whole Blood 136 mg/dL (75-99)
[2021-03-18] MEDS: INSULIN PUMP MEAL BOLUS 1 UNIT MISC MISCELLANE SCH ×2 (07:44→12:25)
[2021-03-18] MEDS: APIXABAN 5 MG TAB PO SCH ×2 (09:10→21:41)
[2021-03-18] MEDS: TIMOLOL 0.5% OPHTH DROPS 5 ML BTL RIGHT EYE SCH ×2 (09:10→21:44)
[2021-03-18] MEDS: FUROSEMIDE 80 MG TAB PO SCH ×2 (09:10→16:38)
[2021-03-18] MEDS: MAGNESIUM OXIDE 400 MG TAB PO SCH (09:10)
[2021-03-18] MEDS: FOLIC ACID-VIT B COMPLEX-VIT C 1 CAP PO SCH (09:10)
[2021-03-18] MEDS: CYCLOBENZAPRINE 5 MG TAB PO SCH ×3 (09:10→21:41)
[2021-03-18] MEDS: PREGABALIN 100 MG CAP PO SCH ×3 (09:10→21:41)
--- NOTE | 2021-03-18 10:12 | P.PN ---
Subjective Progress Note Date: 03/18/21 Patient is doing well today. He denies any shortness of breath or chest pain. He still requiring 5 L of oxygen to maintain O2 sats greater than 90%. This morning his IV heparin drip was discontinued and patient was started on Eliquis 10 mg twice daily. No acute events overnight reported by nursing staff. Objective - Vital Signs Vital signs: Vital Signs Temp 97.9 F 03/18/21 09:05 Pulse 88 03/18/21 09:05 Resp 18 03/18/21 09:05 BP 90/59 03/18/21 09:05 Pulse Ox 94 L 03/18/21 09:05 Intake & Output 03/17/21 03/18/21 03/18/21 18:59 06:59 18:59 Intake Total 1126.844 185.156 Output Total 200 0 Balance 926.844 185.156 Weight 99.5 kg Intake: Intake, IV Titration 64.844 185.156 Amount Heparin Sod,Pork in 0.45% 64.844 185.156 NaCl 25,000 unit In 0.45 % NaCl 1 250ml.bag @ 18 UNITS/KG/HR 17.838 mls/hr IV .Q14H1M [facility] Rx#: [id number] Oral 1062 Output: Urine 200 0 Other: Voiding Method Urinal Urinal - Exam General: The patient is awake and alert, in no distress Eye: there is normal conjunctiva bilaterally. Neck: The neck is supple, there is no JVD. Cardiovascular: Normal S1-S2, no S3-S4, no murmurs. Respiratory: Lungs clear to auscultation bilaterally Gastrointestinal: Abdomen is soft, nontender Musculoskeletal: There is no pedal edema on the left. The right BKA on the right Neurological:. Speech is normal. Skin: Skin is warm and dry - Labs CBC & Chem 7: 03/17/21 08:41 03/16/21 05:52 Labs: Abnormal Lab Results - Last 24 Hours (Table) 03/17/21 03/17/21 03/17/21 Range/Units 12:36 15:30 17:56 APTT (22.0-30.0) sec POC Glucose (mg/dL) 128 H 194 H (75-99) mg/dL Urine Protein 2+ H (Negative) Urine Glucose (UA) Trace H (Negative) Ur Leukocyte Esterase Large H (Negative) Urine WBC 32 H (0-5) /hpf Urine Bacteria Rare H (None) /hpf Urine Mucus Rare H (None) /hpf 03/17/21 03/18/21 03/18/21 Range/Units 21:57 01:56 06:45 APTT 38.3 H (22.0-30.0) sec POC Glucose (mg/dL) 171 H 140 H (75-99) mg/dL Urine Protein (Negative) Urine Glucose (UA) (Negative) Ur Leukocyte Esterase (Negative) Urine WBC (0-5) /hpf Urine Bacteria (None) /hpf Urine Mucus (None) /hpf 03/18/21 Range/Units 07:24 APTT (22.0-30.0) sec POC Glucose (mg/dL) 136 H (75-99) mg/dL Urine Protein (Negative) Urine Glucose (UA) (Negative) Ur Leukocyte Esterase (Negative) Urine WBC (0-5) /hpf Urine Bacteria (None) /hpf Urine Mucus (None) /hpf Assessment and Plan Assessment: This is a 46-year-old male with very complex past medical history noted below who presented to the emergency room after having syncopal episode at home. Patient was evaluated in the ER and admitted to the hospital for further management of his medical problems noted below. 1. Acute PE, involving the main pulmonary arteries as well as second and third branches bilaterally. There is evidence of saddle component. Patient was started on anticoagulation with IV heparin and transitioned to Eliquis 10 mg twice daily today. Today, I ran into the work from home, Dr. Freed in the hallway and he informed me that echocardiogram showed evidence of right ventricular strain. This is contrary to what Dr. Dewey told me this today that he did not notice any evidence of right ventricular strain on the echo. Echocardiogram report is not uploaded yet. I asked the work from home upload report in the computer. I also contacted Dr. Turner with vascular surgery with this updates. He will be seeing the patient later today. May consider EKOS during this admission 2. Syncopal episode, secondary to #1 3. End-stage renal disease on hemodialysis, patient informed me he gets hemo dialysis 5 times a week at home. Nephrology consulted for further evaluation. 4. Type 2 diabetes on insulin pump. We will continue to monitor glucose closely 5. History of right below knee amputation 6. Morbid obesity Today, I reviewed his medication list and lab work results. Continue current regimen. Wean off O2 as tolerated for O2 sats greater than 90%. Patient is not stable for discharge home as of yet
[2021-03-18 12:10] LABS: Glucose,Whole Blood 184 mg/dL (75-99)
--- NOTE | 2021-03-18 13:16 | PN ---
PROGRESS NOTE Patient is seen for followup for end-stage renal disease. Patient was admitted with shortness of breath and syncope and found to have large PE. Currently maintained on anticoagulation. He is maintained on home hemodialysis at home and will be dialyzed tomorrow. PHYSICAL EXAMINATION: On examination today, blood pressure 90/59, heart rate 88 per minute, patient is afebrile. Examination of the heart S1, S2. Examination of the lungs, bilateral breath sounds are heard. Decreased breath sounds at bases. Abdomen is soft, nontender, obese. Examination of lower extremities shows no significant edema. The patient has right BKA. LABS: Not available from today. ASSESSMENT: 1. End-stage renal disease, currently on home hemodialysis via IJ PermCath. The patient has not had good access as outpatient and remains with a dialysis catheter. 2. Pulmonary embolism with saddle shaped thrombus, maintained on IV heparin. 3. Severe peripheral vascular disease. 4. History of right below the knee amputation. 5. Chronic kidney disease mineral bone disorder. 6. Chronic hypotension, maintained on midodrine. PLAN: Hemodialysis in a.m. Continue to encourage increased oral intake. MMODL / IJN: [id number] /
--- NOTE | 2021-03-18 13:24 | P.PN ---
Progress Note - Text 2-D echo has been read and signed by me yesterday I do not see it in [employer]. The 2-D echo report did not transfer into the [employer] system The significant echo findings include a dilated right ventricle with severely reduced RV systolic function and flattening of the interventricular septum consistent with elevated RVSP in the setting of significant pulmonary embolism
--- NOTE | 2021-03-18 13:31 | P.PN ---
Subjective Patient is resting comfortably in bed He continues to the pruritic chest discomfort His pulse ox is low but he does not appear to be in any respiratory distress Temperature 98.6F, pulse rate in the 80s, blood pressure 112/70 and 90/59 mmHg Breath sounds are reduced bilaterally Heart sounds S1 is soft, P2 is exaggerated Abdomen is soft No JVD Sodium 134, potassium 4.4 BUN 23 creatinine 6.0 Impression Submassive pulmonary embolism almost saddle pulmonary embolism Dilated right ventricle with severely reduced RV systolic function and elevated RVSP Chronic kidney disease on dialysis Intermittently low blood pressure and reduced pulse ox Suggest Continue high intensity heparin Consider EKOS Objective - Vital Signs Vital signs: Vital Signs Temp 97.9 F 03/18/21 09:05 Pulse 88 03/18/21 09:05 Resp 18 03/18/21 09:05 BP 90/59 03/18/21 09:05 Pulse Ox 94 L 03/18/21 09:05 Intake & Output 03/17/21 03/18/21 03/18/21 18:59 06:59 18:59 Intake Total 1126.844 185.156 Output Total 200 0 Balance 926.844 185.156 Weight 99.5 kg Intake: Intake, IV Titration 64.844 185.156 Amount Heparin Sod,Pork in 0.45% 64.844 185.156 NaCl 25,000 unit In 0.45 % NaCl 1 250ml.bag @ 18 UNITS/KG/HR 17.838 mls/hr IV .Q14H1M [facility] Rx#: [id number] Oral 1062 Output: Urine 200 0 Other: Voiding Method Urinal Urinal Urinal - Labs CBC & Chem 7: 03/17/21 08:41 03/16/21 05:52 Labs: Abnormal Lab Results - Last 24 Hours (Table) 03/17/21 03/17/21 03/17/21 Range/Units 15:30 17:56 21:57 APTT (22.0-30.0) sec POC Glucose (mg/dL) 194 H 171 H (75-99) mg/dL Urine Protein 2+ H (Negative) Urine Glucose (UA) Trace H (Negative) Ur Leukocyte Esterase Large H (Negative) Urine WBC 32 H (0-5) /hpf Urine Bacteria Rare H (None) /hpf Urine Mucus Rare H (None) /hpf 03/18/21 03/18/2103/18/21 Range/Units 01:56 06:45 07:24 APTT 38.3 H (22.0-30.0) sec POC Glucose (mg/dL) 140 H 136 H (75-99) mg/dL Urine Protein (Negative) Urine Glucose (UA) (Negative) Ur Leukocyte Esterase (Negative) Urine WBC (0-5) /hpf Urine Bacteria (None) /hpf Urine Mucus (None) /hpf 03/18/21 Range/Units 12:08 APTT (22.0-30.0) sec POC Glucose (mg/dL) 184 H (75-99) mg/dL Urine Protein (Negative) Urine Glucose (UA) (Negative) Ur Leukocyte Esterase (Negative) Urine WBC (0-5) /hpf Urine Bacteria (None) /hpf Urine Mucus (None) /hpf
--- NOTE | 2021-03-18 13:45 | P.PN ---
Subjective Progress Note Date: 03/18/21 Principal diagnosis: Bilateral PE Patient seen and examined. He is resting comfortably in bed. He is still complaining of difficulty breathing and is currently on 5 L O2. He also is complaining of chest pain with deep breath. Objective - Vital Signs Vital signs: Vital Signs Temp 97.9 F 03/18/21 09:05 Pulse 88 03/18/21 09:05 Resp 18 03/18/21 09:05 BP 90/59 03/18/21 09:05 Pulse Ox 94 L 03/18/21 09:05 Intake & Output 03/17/21 03/18/21 03/18/21 18:59 06:59 18:59 Intake Total 1126.844 185.156 Output Total 200 0 Balance 926.844 185.156 Weight 99.5 kg Intake: Intake, IV Titration 64.844 185.156 Amount Heparin Sod,Pork in 0.45% 64.844 185.156 NaCl 25,000 unit In 0.45 % NaCl 1 250ml.bag @ 18 UNITS/KG/HR 17.838 mls/hr IV .Q14H1M [facility] Rx#: [id number] Oral 1062 Output: Urine 200 0 Other: Voiding Method Urinal Urinal Urinal - Exam General- WN, WD, NAD, A&O x 3 HEENT- PERRL, EOMI, No scleral icterus CV- Regular rate, right chest catheter clean, dry and intact Pulm- Clear, poor inspiration, breath sounds reduced bilaterally Abd- soft, non distended Ext-right below-knee amputation site is stable. Neurologic- No focal deficits, sensation and strength grossly intact - Labs CBC & Chem 7: 03/17/21 08:41 03/16/21 05:52 Labs: Abnormal Lab Results - Last 24 Hours (Table) 03/17/21 03/17/21 03/17/21 Range/Units 15:30 17:56 21:57 APTT (22.0-30.0) sec POC Glucose (mg/dL) 194 H 171 H (75-99) mg/dL Urine Protein 2+ H (Negative) Urine Glucose (UA) Trace H (Negative) Ur Leukocyte Esterase Large H (Negative) Urine WBC 32 H (0-5) /hpf Urine Bacteria Rare H (None) /hpf Urine Mucus Rare H (None) /hpf 03/18/21 03/18/21 03/18/21 Range/Units 01:56 06:45 07:24 APTT 38.3 H (22.0-30.0) sec POC Glucose (mg/dL) 140 H 136 H (75-99) mg/dL Urine Protein (Negative) Urine Glucose (UA) (Negative) Ur Leukocyte Esterase (Negative) Urine WBC (0-5) /hpf Urine Bacteria (None) /hpf Urine Mucus (None) /hpf 03/18/21 Range/Units 12:08 APTT (22.0-30.0) sec POC Glucose (mg/dL) 184 H (75-99) mg/dL Urine Protein (Negative) Urine Glucose (UA) (Negative) Ur Leukocyte Esterase (Negative) Urine WBC (0-5) /hpf Urine Bacteria (None) /hpf Urine Mucus (None) /hpf Assessment and Plan Assessment: #1 submassive pulmonary embolism bilateral with right ventricular strain #2 syncopal episode #3 severe peripheral arterial disease with history of right below-knee amputation #4 end-stage renal disease on hemodialysis Plan: Reviewed cardiology reports and echo has been read as positive with severe right ventricular heart strain. Findings were not available in the chart yesterday. Due to his severe heart strain and bilateral pulmonary embolism he would benefit from EKOS. When patient was seen he was eating a full meal therefore we will schedule him for tomorrow for the procedure. He will need to be placed into the ICU at that time after the procedure for continued monitoring. All risks, benefits and complications were discussed with him in full detail and he states he would like to go forward with the procedure. I would also transitioning back to high intensity heparin.
[2021-03-18 17:29] LABS: Glucose,Whole Blood 178 mg/dL (75-99)
[2021-03-18 18:40] LABS: Glucose,Whole Blood 147 mg/dL (75-99)
[2021-03-18] MEDS: ATORVASTATIN 40 MG TAB PO SCH (21:41)
[2021-03-18 21:59] LABS: Glucose,Whole Blood 171 mg/dL (75-99)
[2021-03-18 23:36] LABS: Glucose,Whole Blood 182 mg/dL (75-99)
[2021-03-19] MEDS: INSULIN PUMP MEAL BOLUS 1 UNIT MISC MISCELLANE SCH ×6 (00:41→20:39)
[2021-03-19 02:33] LABS: Glucose,Whole Blood 163 mg/dL (75-99)
[2021-03-19 06:10] LABS: Glucose,Whole Blood 138 mg/dL (75-99)
[2021-03-19] MEDS: PANTOPRAZOLE 40 MG TABLET PO SCH ×2 (07:04→17:31)
[2021-03-19] MEDS: MIDODRINE 5 MG TAB PO SCH ×3 (07:04→17:31)
[2021-03-19] MEDS: SODIUM CHLORIDE 0.9% 1,000 ML IV SCH ×3 (07:10→16:16)
[2021-03-19] MEDS: INSULIN ASPART (NovoLOG) 100 UNIT/ML VIAL SQ SCH ×4 (07:11→20:57)
[2021-03-19] MEDS ORDERED: HEPARIN SODIUM 1,000 UN/ML (10ML VL) IV PRN (08:05)
[2021-03-19] MEDS: oxyCODONE-APAP 10-325MG 1 EACH TAB PO PRN ×2 (08:20→20:55)
[2021-03-19] MEDS: HEPARIN SOD,PORK IN 0.45% NACL 25,000 UNIT in 0.45% NACL 1 250ML.BAG IV SCH (08:21)
[2021-03-19 08:28] LABS: Calcium 7.5 mg/dL (8.4-10.2); Potassium 5.5 mmol/L (3.5-5.1)
[2021-03-19 08:52] LABS: Anisocytosis Slight; Basophils # (A) 0.1 k/uL (0-0.2); Basophils % (A) 1 %; Eosinophils # (A) 0.4 k/uL (0-0.7); Eosinophils % (A) 3 %; HCT 36.3 % (39.0-53.0); Hypochromasia Marked; Lymphocytes # (A) 2.4 k/uL (1.0-4.8); Lymphocytes % (A) 19 %; MCH 30.2 pg (25.0-35.0); MCHC 30.3 g/dL (31.0-37.0); MCV 99.6 fL (80.0-100.0); Macrocytosis Slight; Mean Platelet Volume 10.4; Monocytes # (A) 0.6 k/uL (0-1.0); Monocytes % (A) 4 %; Neutrophils % (A) 71 %; Platelet Count 157 k/uL (150-450); RBC 3.65 m/uL (4.30-5.90); RDW 16.9 % (11.5-15.5); WBC 12.8 k/uL (3.8-10.6)
[2021-03-19 10:00] LABS: INR 1.1 (<1.2)
[2021-03-19 10:01] LABS: Partial Thromboplastin Time 46.9 sec (22.0-30.0); Prothrombin Time 11.5 sec (9.0-12.0)
--- NOTE | 2021-03-19 11:02 | P.PN ---
Subjective Progress Note Date: 03/19/21 Patient is doing well today. He does not have any complaint this morning. Objective - Vital Signs Vital signs: Vital Signs Temp 98.2 F 03/19/21 08:15 Pulse 88 03/19/21 08:15 Resp 16 03/19/21 08:15 BP 124/78 03/19/21 08:15 Pulse Ox 93 L 03/19/21 08:15 Intake & Output 03/18/21 03/19/21 03/19/21 18:59 06:59 18:59 Intake Total 480 100 0 Output Total 0 Balance 480 100 0 Weight 99 kg Intake: Oral 480 100 0 Output: Urine 0 Other: Voiding Method Urinal Urinal # Voids 0 - Exam General: The patient is awake and alert, in no distress Eye: there is normal conjunctiva bilaterally. Neck: The neck is supple, there is no JVD. Cardiovascular: Normal S1-S2, no S3-S4, no murmurs. Respiratory: Lungs clear to auscultation bilaterally Gastrointestinal: Abdomen is soft, nontender Musculoskeletal: There is no pedal edema on the left. The right BKA on the right Neurological:. Speech is normal. Skin: Skin is warm and dry - Labs CBC & Chem 7: 03/19/21 07:47 03/19/21 07:47 Labs: Abnormal Lab Results - Last 24 Hours (Table) 03/18/21 03/18/21 03/18/21 Range/Units 12:08 17:26 18:38 WBC (3.8-10.6) k/uL RBC (4.30-5.90) m/uL Hgb (13.0-17.5) gm/dL Hct (39.0-53.0) % MCHC (31.0-37.0) g/dL RDW (11.5-15.5) % Neutrophils # (1.3-7.7) k/uL APTT (22.0-30.0) sec Sodium (137-145) mmol/L Potassium (3.5-5.1) mmol/L Carbon Dioxide (22-30) mmol/L BUN (9-20) mg/dL Creatinine (0.66-1.25) mg/dL Glucose (74-99) mg/dL POC Glucose (mg/dL) 184 H 178 H 147 H (75-99) mg/dL Calcium (8.4-10.2) mg/dL 03/18/21 03/18/21 03/19/21 Range/Units 21:57 23:35 02:21 WBC (3.8-10.6) k/uL RBC (4.30-5.90) m/uL Hgb (13.0-17.5) gm/dL Hct (39.0-53.0) % MCHC (31.0-37.0) g/dL RDW (11.5-15.5) % Neutrophils # (1.3-7.7) k/uL APTT (22.0-30.0) sec Sodium (137-145) mmol/L Potassium (3.5-5.1) mmol/L Carbon Dioxide (22-30) mmol/L BUN (9-20) mg/dL Creatinine (0.66-1.25) mg/dL Glucose (74-99) mg/dL POC Glucose (mg/dL) 171 H 182 H 163 H (75-99) mg/dL Calcium (8.4-10.2) mg/dL 03/19/21 03/19/21 03/19/21 Range/Units 06:08 07:47 07:47 WBC 12.8 H (3.8-10.6) k/uL RBC 3.65 L (4.30-5.90) m/uL Hgb 11.0 L (13.0-17.5) gm/dL Hct 36.3 L (39.0-53.0) % MCHC 30.3 L (31.0-37.0) g/dL RDW 16.9 H (11.5-15.5) % Neutrophils # 9.0 H (1.3-7.7) k/uL APTT (22.0-30.0) sec Sodium 134 L (137-145) mmol/L Potassium 5.5 H (3.5-5.1) mmol/L Carbon Dioxide 19 L (22-30) mmol/L BUN 45 H (9-20) mg/dL Creatinine 10.41 H* (0.66-1.25) mg/dL Glucose 179 H (74-99) mg/dL POC Glucose (mg/dL) 138 H (75-99) mg/dL Calcium 7.5 L (8.4-10.2) mg/dL 03/19/21 Range/Units 09:45 WBC (3.8-10.6) k/uL RBC (4.30-5.90) m/uL Hgb (13.0-17.5) gm/dL Hct (39.0-53.0) % MCHC (31.0-37.0) g/dL RDW (11.5-15.5) % Neutrophils # (1.3-7.7) k/uL APTT 46.9 H (22.0-30.0) sec Sodium (137-145) mmol/L Potassium (3.5-5.1) mmol/L Carbon Dioxide (22-30) mmol/L BUN (9-20) mg/dL Creatinine (0.66-1.25) mg/dL Glucose (74-99) mg/dL POC Glucose (mg/dL) (75-99) mg/dL Calcium (8.4-10.2) mg/dL Assessment and Plan Assessment: This is a 46-year-old male with very complex past medical history noted below who presented to the emergency room after having syncopal episode at home. Patient was evaluated in the ER and admitted to the hospital for further management of his medical problems noted below. 1. Acute PE, involving the main pulmonary arteries as well as second and third branches bilaterally. There is evidence of saddle component. Patient was started on anticoagulation with IV heparin. He was seen and evaluated by vascular surgery. Scheduled for EKOS procedure today. Echocardiogram showed right ventricular strain 2. Syncopal episode, secondary to #1 3. End-stage renal disease on hemodialysis, patient gets hemodialysis 5 times a week at home. Nephrology following. 4. Type 2 diabetes on insulin pump. We will continue to monitor glucose closely 5. History of right below knee amputation 6. Morbid obesity Today, I reviewed his medication list and lab work results. Continue current regimen. Wean off O2 as tolerated for O2 sats greater than 90%.
--- NOTE | 2021-03-19 11:42 | P.EPPROC ---
- EP Procedure Note Electrophysiology Procedure Note: Patient is resting comfortably in bed. He continues to have mild pleuritic chest discomfort but no orthopnea no PND His vitals are stable Blood pressure 120-70 mmHg 124/78 mmHg Pulse rate in the 80s afebrile Breath sounds are reduced bilaterally heart sounds S1 and S2 are soft no murmurs Impression Submassive pulmonary embolism Enlarged RV with severely reduced RV systolic function Awaiting EKOS Continue IV heparin Will follow
[2021-03-19 12:23] LABS: Glucose,Whole Blood 142 mg/dL (75-99)
--- NOTE | 2021-03-19 13:02 | PN ---
PROGRESS NOTE Patient is seen for followup for end-stage renal disease. He is scheduled for the EKOS procedure sometime today. The patient is maintained on a Friday, Friday, Friday schedule for dialysis. He will be dialyzed today after the procedure. PHYSICAL EXAMINATION: On examination today, blood pressure is 107/59, heart rate 88 per minute, he is afebrile. Examination of the heart S1, S2. Examination lungs, bilateral breath sounds are heard. Abdomen is soft, morbidly obese. Examination lower extremities shows left BKA. TELEPHONE TECHNICIAN exam grossly intact. LAB: Show sodium 134, potassium 5.5, chloride 102, CO2 is 19, BUN 45, creatinine 10.41, hemoglobin 11.0. ASSESSMENT: 1. End-stage renal disease, on home hemodialysis, currently maintained on a Friday, Friday, Friday schedule. 2. Hyperkalemia, expect improvement with dialysis today. 3. Mild volume overload, we will plan for 1-2 L as tolerated. 4. Bilateral pulmonary embolism, going EKOS procedure, maintained on anticoagulation. 5. Severe peripheral vascular disease with poor access for dialysis. MMODL / IJN: [id number] /
[2021-03-19] MEDS ORDERED: IV FLUID CONTINUATION 1,000 ML IV ONE (14:40)
[2021-03-19] MEDS ORDERED: ALTEPLASE 2 MG VIAL (CATHFLO) IV STA ×2 (14:54→14:56)
[2021-03-19] MEDS ORDERED: HEPARIN SOD,PORK IN 0.45% NACL 25,000 UNIT in 0.45% NACL 1 250ML.BAG IV SCH ×2 (15:00)
[2021-03-19] MEDS ORDERED: ALTEPLASE 10 MG in SODIUM CHLORIDE 0.9% 100 ML IV ONE ×4 (15:15)
[2021-03-19] MEDS ORDERED: LIDOCAINE 1% INJ 10MG/ML (20 ML MDV) SQ ONE (15:21)
[2021-03-19] MEDS ORDERED: MIDAZOLAM 2 MG/2 ML VIAL IV ONE (15:23)
--- NOTE | 2021-03-19 16:20 | P.OP ---
Date of Procedure: 03/19/21 Description of Procedure: Preoperative diagnosis: Bilateral Pulmonary artery embolus with right heart strain Postoperative diagnosis: Same Procedure: Ultrasound-guided right femoral vein access with placement of bilateral thrombolytic EKOS catheters and initiation of thrombolysis. Bilateral selective pulmonary artery angiograms Surgeon: Bernard Turner D.O. Anesthesia: Local with conscious sedation x 22 minutes Estimated blood loss: Minimal Complications: None Condition: Stable Indication for procedure: 46-year-old gentleman with history of peripheral arterial disease and end-stage renal disease on hemodialysis presented to the hospital secondary to chest pain and acute onset shortness of breath. He was worked up with CT scan which demonstrated bilateral pulmonary saddle embolism. He underwent an echo that demonstrated right heart strain in need of intervention. He was placed on heparin drip and followed in his breathing was not improving and he was currently on 7 L of O2. He presents today for EKOS thrombolysis. Operative narrative: After written and informed consent was obtained from the patient and all risk, benefits and complications were discussed the patient was brought to the [facility] and laid in a supine position. The area of the right groin was prepped and draped in usual sterile fashion. Timeout was performed in normal fashion. Under ultrasound guidance the right common femoral vein was compressible and patent without any thrombus and therefore accessed 2 and 6- Telugu sheaths were placed utilizing Seldinger technique. 035 Glidewire advantage was then placed and directed to the inferior vena cava and atrial junction. Utilizing an angled glide catheter the atria was accessed and wire was placed into the right ventricle and ultimately up to the pulmonary artery. The pulmonary artery on the right was accessed and wire was placed into the segmental branch with removal of the angled glide catheter. Through the other sheath and 035 Glidewire advantage was placed and utilizing the angled glide catheter the left pulmonary artery was accessed and wire was placed into the segmental branch and catheter was removed. The EKOS infusion catheters were then guided over the guidewires into the appropriate position across the pulmonary arteries bilaterally. Wires were then removed and replaced with the ultrasound inner core wire. 2 mg of TPA was then infused into both infusion ports. The sheaths were then secured in place with nylon suture. The area was then cleansed and dressings were placed. The patient was then connected to TPA and heparin as well as coolant per protocol. Patient tolerated procedure well and was sent to the ICU for recovery.
[2021-03-19] MEDS: CYCLOBENZAPRINE 5 MG TAB PO SCH ×3 (16:32→20:55)
[2021-03-19] MEDS: PREGABALIN 100 MG CAP PO SCH ×3 (16:32→20:55)
[2021-03-19] MEDS: TIMOLOL 0.5% OPHTH DROPS 5 ML BTL RIGHT EYE SCH ×2 (16:33→21:42)
[2021-03-19] MEDS: FOLIC ACID-VIT B COMPLEX-VIT C 1 CAP PO SCH (16:33)
[2021-03-19] MEDS: FUROSEMIDE 80 MG TAB PO SCH ×2 (16:34→17:53)
[2021-03-19 16:45] LABS: Glucose,Whole Blood 191 mg/dL (75-99)
[2021-03-19 17:08] LABS: Partial Thromboplastin Time 46.1 sec (22.0-30.0)
[2021-03-19] MEDS: MAGNESIUM OXIDE 400 MG TAB PO SCH (17:31)
[2021-03-19 20:42] LABS: Glucose,Whole Blood 217 mg/dL (75-99)
[2021-03-19] MEDS: ATORVASTATIN 40 MG TAB PO SCH (20:55)
[2021-03-20 00:14] LABS: Partial Thromboplastin Time 29.2 sec (22.0-30.0)
[2021-03-20 03:11] LABS: Glucose,Whole Blood 199 mg/dL (75-99)
[2021-03-20 03:19] LABS: Anisocytosis Slight; Basophils # (A) 0.1 k/uL (0-0.2); Basophils % (A) 1 %; Eosinophils # (A) 0.4 k/uL (0-0.7); Eosinophils % (A) 5 %; HGB 11.1 gm/dL (13.0-17.5); Hypochromasia Marked; Lymphocytes # (A) 1.9 k/uL (1.0-4.8); Lymphocytes % (A) 22 %; MCHC 28.5 g/dL (31.0-37.0); MCV 101.6 fL (80.0-100.0); Macrocytosis Slight; Mean Platelet Volume 9.8; Monocytes # (A) 0.5 k/uL (0-1.0); Monocytes % (A) 6 %; Neutrophils # (A) 5.5 k/uL (1.3-7.7); Neutrophils % (A) 64 %; Platelet Count 160 k/uL (150-450); RBC 3.83 m/uL (4.30-5.90); RDW 16.6 % (11.5-15.5); WBC 8.7 k/uL (3.8-10.6)
[2021-03-20 03:29] LABS: Calcium 7.4 mg/dL (8.4-10.2)
[2021-03-20 03:53] LABS: Partial Thromboplastin Time 26.1 sec (22.0-30.0)
[2021-03-20 04:30] LABS: Potassium 5.2 mmol/L (3.5-5.1)
[2021-03-20 06:36] LABS: Glucose,Whole Blood 149 mg/dL (75-99)
[2021-03-20] MEDS: INSULIN ASPART (NovoLOG) 100 UNIT/ML VIAL SQ SCH ×5 (06:39→22:53)
[2021-03-20] MEDS: INSULIN PUMP MEAL BOLUS 1 UNIT MISC MISCELLANE SCH ×4 (06:39→22:54)
[2021-03-20] MEDS: PANTOPRAZOLE 40 MG TABLET PO SCH ×2 (06:39→17:18)
[2021-03-20] MEDS: MIDODRINE 5 MG TAB PO SCH ×3 (06:39→17:13)
--- NOTE | 2021-03-20 08:24 | XR ---
EXAMINATION TYPE: XR chest 1V portable DATE OF EXAM: 03/20/2021 COMPARISON: Chest x-ray 03/16/2021 HISTORY: Shortness of breath TECHNIQUE: Single frontal view of the chest is obtained. FINDINGS: Bilateral jugular dialysis catheters are in place, there are overlying leads. Metallic clari ds are also present along the distribution of the pulmonary arteries. No evident pneumothorax or pleu ral effusion. Lung volumes are low. Cardiomediastinal silhouette appears somewhat prominently possibl y due to technique. Central vascularity appears increased. IMPRESSION: Expiratory exam. Post instrumentation changes.
[2021-03-20] MEDS: HEPARIN SOD,PORK IN 0.45% NACL 25,000 UNIT in 0.45% NACL 1 250ML.BAG IV SCH ×2 (08:38→12:20)
[2021-03-20] MEDS: SODIUM CHLORIDE 0.9% 1,000 ML IV SCH ×3 (08:39→15:10)
[2021-03-20] MEDS: FOLIC ACID-VIT B COMPLEX-VIT C 1 CAP PO SCH (08:50)
[2021-03-20] MEDS: FUROSEMIDE 80 MG TAB PO SCH ×2 (08:50→17:18)
[2021-03-20] MEDS: PREGABALIN 100 MG CAP PO SCH ×3 (08:50→21:08)
[2021-03-20] MEDS: CYCLOBENZAPRINE 5 MG TAB PO SCH ×3 (08:50→21:08)
[2021-03-20] MEDS: MAGNESIUM OXIDE 400 MG TAB PO SCH (08:50)
[2021-03-20] MEDS: oxyCODONE-APAP 10-325MG 1 EACH TAB PO PRN ×2 (08:55→21:16)
--- NOTE | 2021-03-20 10:02 | P.PN ---
Subjective Progress Note Date: 03/20/21 Patient is feeling a lot better today. He said that shortness of breath is improved. He is currently on 2 L of oxygen. Catheter still in place in the right femoral vein. Plan to remove catheter later on today by vascular surgery. Objective - Vital Signs Vital signs: Vital Signs Temp 98.3 F 03/19/21 23:43 Pulse 80 03/20/21 07:00 Resp 20 03/20/21 07:00 BP 113/71 03/20/21 07:00 Pulse Ox 93 L 03/20/21 07:00 Intake & Output 03/19/21 03/20/21 03/20/21 18:59 06:59 18:59 Intake Total 286 1040 320 Output Total 2500 0 0 Balance -2214 1040 320 Weight 106.5 kg Intake: IV 126 1040 320 Alteplase 10 mg In Sodium 140 0 Chloride 0.9% 100 ml @ 1 MG/HR 10 mls/hr IV .Q10H [facility] Rx#:[id number] Sodium Chloride 0.9% 1, 130 110 000 ml @ 20 mls/hr IV . Q24H [facility] Rx#:[id number] Sodium Chloride 0.9% 1, 385 105 000 ml @ 35 mls/hr IV . Q24H [facility] Rx#:[id number] Sodium Chloride 0.9% 1, 385 105 000 ml @ 35 mls/hr IV . Q24H [facility] Rx#:[id number] Intake, IV Titration 160 Amount Sodium Chloride 0.9% 1, 20 000 ml @ 20 mls/hr IV . Q24H [facility] Rx#:[id number] Sodium Chloride 0.9% 1, 70 000 ml @ 35 mls/hr IV . Q24H [facility] Rx#:[id number] Sodium Chloride 0.9% 1, 70 000 ml @ 35 mls/hr IV . Q24H [facility] Rx#:[id number] Oral 0 Output: Urine 0 0 0 Hemodialysis 2500 Other: Voiding Method Urinal Urinal # Voids 0 0 - Exam General: The patient is awake and alert, in no distress Eye: there is normal conjunctiva bilaterally. Neck: The neck is supple, there is no JVD. Cardiovascular: Normal S1-S2, no S3-S4, no murmurs. Respiratory: Lungs clear to auscultation bilaterally Gastrointestinal: Abdomen is soft, nontender Musculoskeletal: There is no pedal edema on the left. The right BKA on the right Neurological:. Speech is normal. Skin: Skin is warm and dry - Labs CBC & Chem 7: 03/20/21 03:10 03/20/21 03:10 Labs: Abnormal Lab Results - Last 24 Hours (Table) 03/19/21 03/19/21 03/19/21 Range/Units 09:45 12:08 16:39 RBC (4.30-5.90) m/uL Hgb (13.0-17.5) gm/dL MCV (80.0-100.0) fL MCHC (31.0-37.0) g/dL RDW (11.5-15.5) % APTT 46.9 H 46.1 H (22.0-30.0) sec Fibrinogen 690 H (200-500) mg/dL Sodium (137-145) mmol/L Potassium (3.5-5.1) mmol/L Carbon Dioxide (22-30) mmol/L BUN (9-20) mg/dL Creatinine (0.66-1.25) mg/dL Glucose (74-99) mg/dL POC Glucose (mg/dL) 142 H (75-99) mg/dL Calcium (8.4-10.2) mg/dL 03/19/21 03/19/21 03/19/21 Range/Units 16:43 20:41 22:51 RBC (4.30-5.90) m/uL Hgb (13.0-17.5) gm/dL MCV (80.0-100.0) fL MCHC (31.0-37.0) g/dL RDW (11.5-15.5) % APTT (22.0-30.0) sec Fibrinogen 615 H (200-500) mg/dL Sodium (137-145) mmol/L Potassium (3.5-5.1) mmol/L Carbon Dioxide (22-30) mmol/L BUN (9-20) mg/dL Creatinine (0.66-1.25) mg/dL Glucose (74-99) mg/dL POC Glucose (mg/dL) 191 H 217 H (75-99) mg/dL Calcium (8.4-10.2) mg/dL 06/11/0903/20/21 03/20/21 Range/Units 03:09 03:10 03:10 RBC 3.83 L (4.30-5.90) m/uL Hgb 11.1 L (13.0-17.5) gm/dL MCV 101.6 H (80.0-100.0) fL MCHC 28.5 L (31.0-37.0) g/dL RDW 16.6 H (11.5-15.5) % APTT (22.0-30.0) sec Fibrinogen 560 H (200-500) mg/dL Sodium (137-145) mmol/L Potassium (3.5-5.1) mmol/L Carbon Dioxide (22-30) mmol/L BUN (9-20) mg/dL Creatinine (0.66-1.25) mg/dL Glucose (74-99) mg/dL POC Glucose (mg/dL) 199 H (75-99) mg/dL Calcium (8.4-10.2) mg/dL 03/20/21 03/20/21 Range/Units 03:10 06:35 RBC (4.30-5.90) m/uL Hgb (13.0-17.5) gm/dL MCV (80.0-100.0) fL MCHC (31.0-37.0) g/dL RDW (11.5-15.5) % APTT (22.0-30.0) sec Fibrinogen (200-500) mg/dL Sodium 132 L (137-145) mmol/L Potassium 5.2 H (3.5-5.1) mmol/L Carbon Dioxide 21 L (22-30) mmol/L BUN 35 H (9-20) mg/dL Creatinine 8.08 H* (0.66-1.25) mg/dL Glucose 193 H (74-99) mg/dL POC Glucose (mg/dL) 149 H (75-99) mg/dL Calcium 7.4 L (8.4-10.2) mg/dL Assessment and Plan Assessment: This is a 46-year-old male with very complex past medical history noted below who presented to the emergency room after having syncopal episode at home. Patient was evaluated in the ER and admitted to the hospital for further management of his medical problems noted below. 1. Acute PE, involving the main pulmonary arteries as well as second and third branches bilaterally. There is evidence of saddle component and had ventricular strain on echocardiogram. Status post thrombolytic EKOS. Vascular surgery will remove catheters today. Plan to transition to Eliquis 10 mg twice daily for 7 days and 5 mg twice daily thereafter. Discontinue home dose of Rivaroxaban 2. Syncopal episode, secondary to #1 3. End-stage renal disease on hemodialysis, patient gets hemodialysis 5 times a week at home. Nephrology following. 4. Type 2 diabetes on insulin pump. We will continue to monitor glucose closely 5. History of right below knee amputation 6. Morbid obesity Today, I reviewed his medication list and lab work results. Continue current regimen. Wean off O2 as tolerated for O2 sats greater than 90%. May transfer out of ICU later on when femoral catheter is removed. Dissipated discharged home tomorrow.
[2021-03-20] MEDS: TIMOLOL 0.5% OPHTH DROPS 5 ML BTL RIGHT EYE SCH ×2 (10:17→21:51)
--- NOTE | 2021-03-20 11:36 | PN ---
PROGRESS NOTE Patient is seen for followup for end-stage renal disease. He is status post thrombolytic EKOS procedure done by Vascular Surgery yesterday. Currently patient is in the ICU. He states he is feeling fairly well. Denies any significant chest pains or shortness of breath. PHYSICAL EXAMINATION: On examination today, blood pressure was 113/71, heart rate 80 per minute, he is afebrile. Examination of the heart S1, S2. Examination of the lungs, bilateral breath sounds are heard. Abdomen is soft. Morbidly obese. Examination of the lower extremities showed no significant edema. Patient has right BKA. CLAY PREPARATION SUPERVISOR exam grossly intact. LAB: Show sodium 132, potassium 5.2, chloride 101, BUN 35, creatinine 8.0, hemoglobin 11.1 g/dL. ASSESSMENT: 1. End-stage renal disease, maintained on home hemodialysis, currently maintained on a Friday, Friday, Friday schedule while in the hospital. 2. Bilateral pulmonary embolism with saddle shaped pulmonary embolism, status post EKOS procedure, maintained on anticoagulation. 3. Mild hyperkalemia. Expect improvement with dialysis tomorrow. 4. History of peripheral vascular disease. 5. History of right below knee amputation. PLAN: Hemodialysis in a.m. Goal UF about 2-2.5 L as tolerated. MMODL / IJN: [id number] /
[2021-03-20 12:09] LABS: Glucose,Whole Blood 221 mg/dL (75-99)
--- NOTE | 2021-03-20 12:28 | P.PN ---
Subjective Progress Note Date: 03/20/21 Principal diagnosis: Pulmonary embolism with right heart strain Patient seen and examined lying flat in bed in the ICU. He is status post EKOS yesterday. TPA was discontinued this morning, heparin was still transfusing. He has had no reports of any bleed from the right groin. He states his breathing is much easier, he feels shortness of breath has improved, and he is only on 2 L of nasal cannula. Objective - Vital Signs Vital signs: Vital Signs Temp 98.3 F 03/19/21 23:43 Pulse 80 03/20/21 07:00 Resp 20 03/20/21 07:00 BP 113/71 03/20/21 07:00 Pulse Ox 93 L 03/20/21 07:00 Intake & Output 03/19/21 03/20/21 03/20/21 18:59 06:59 18:59 Intake Total 286 1040 140 Output Total 2500 0 0 Balance -2214 1040 140 Weight 106.5 kg Intake: IV 126 1040 140 Alteplase 10 mg In Sodium 140 0 Chloride 0.9% 100 ml @ 1 MG/HR 10 mls/hr IV .Q10H [facility] Rx#:[id number] Sodium Chloride 0.9% 1, 130 70 000 ml @ 20 mls/hr IV . Q24H [facility] Rx#:[id number] Sodium Chloride 0.9% 1, 385 35 000 ml @ 35 mls/hr IV . Q24H [facility] Rx#:[id number] Sodium Chloride 0.9% 1, 385 35 000 ml @ 35 mls/hr IV . Q24H [facility] Rx#:[id number] Intake, IV Titration 160 Amount Sodium Chloride 0.9% 1, 20 000 ml @ 20 mls/hr IV . Q24H [facility] Rx#:[id number] Sodium Chloride 0.9% 1, 70 000 ml @ 35 mls/hr IV . Q24H [facility] Rx#:[id number] Sodium Chloride 0.9% 1, 70 000 ml @ 35 mls/hr IV . Q24H [facility] Rx#:[id number] Oral 0 Output: Urine 0 0 0 Hemodialysis 2500 Other: Voiding Method Urinal Urinal # Voids 0 0 - Exam General appearance: The patient is alert, oriented, appears in no acute distress. HET: Head is normocephalic and atraumatic. Neck: Supple without lymphadenopathy. Trachea midline. Heart: S1 S2. Regular rate and rhythm. Lungs: Clear to auscultation. Abdomen: Obese, Soft, nontender, nondistended. Extremities: Normal skin color and turgor. Right lower extremity BKA. Left upper extremity fistula. Right groin with sheath intact, discontinued with pressure held. Neurological: No focal deficits. Strength and sensation are grossly intact. - Labs CBC & Chem 7: 03/20/21 03:10 03/20/21 03:10 Labs: Abnormal Lab Results - Last 24 Hours (Table) 03/19/21 03/19/21 03/19/21 Range/Units 09:45 12:08 16:39 RBC (4.30-5.90) m/uL Hgb (13.0-17.5) gm/dL MCV (80.0-100.0) fL MCHC (31.0-37.0) g/dL RDW (11.5-15.5) % APTT 46.9 H 46.1 H (22.0-30.0) sec Fibrinogen 690 H (200-500) mg/dL Sodium (137-145) mmol/L Potassium (3.5-5.1) mmol/L Carbon Dioxide (22-30) mmol/L BUN (9-20) mg/dL Creatinine (0.66-1.25) mg/dL Glucose (74-99) mg/dL POC Glucose (mg/dL) 142 H (75-99) mg/dL Calcium (8.4-10.2) mg/dL 03/19/21 03/19/21 03/19/21 Range/Units 16:43 20:41 22:51 RBC (4.30-5.90) m/uL Hgb (13.0-17.5) gm/dL MCV (80.0-100.0) fL MCHC (31.0-37.0) g/dL RDW (11.5-15.5) % APTT (22.0-30.0) sec Fibrinogen 615 H (200-500) mg/dL Sodium (137-145) mmol/L Potassium (3.5-5.1) mmol/L Carbon Dioxide (22-30) mmol/L BUN (9-20) mg/dL Creatinine (0.66-1.25) mg/dL Glucose (74-99) mg/dL POC Glucose (mg/dL) 191 H 217 H (75-99) mg/dL Calcium (8.4-10.2) mg/dL 03/20/21 03/20/21 03/20/21 Range/Units 03:09 03:10 03:10 RBC 3.83 L (4.30-5.90) m/uL Hgb 11.1 L (13.0-17.5) gm/dL MCV 101.6 H (80.0-100.0) fL MCHC 28.5 L (31.0-37.0) g/dL RDW 16.6 H (11.5-15.5) % APTT (22.0-30.0) sec Fibrinogen 560 H (200-500) mg/dL Sodium (137-145) mmol/L Potassium (3.5-5.1) mmol/L Carbon Dioxide (22-30) mmol/L BUN (9-20) mg/dL Creatinine (0.66-1.25) mg/dL Glucose (74-99) mg/dL POC Glucose (mg/dL) 199 H (75-99) mg/dL Calcium (8.4-10.2) mg/dL 03/20/21 03/20/21 Range/Units 03:10 06:35 RBC (4.30-5.90) m/uL Hgb (13.0-17.5) gm/dL MCV (80.0-100.0) fL MCHC (31.0-37.0) g/dL RDW (11.5-15.5) % APTT (22.0-30.0) sec Fibrinogen (200-500) mg/dL Sodium 132 L (137-145) mmol/L Potassium 5.2 H (3.5-5.1) mmol/L Carbon Dioxide 21 L (22-30) mmol/L BUN 35 H (9-20) mg/dL Creatinine 8.08 H* (0.66-1.25) mg/dL Glucose 193 H (74-99) mg/dL POC Glucose (mg/dL) 149 H (75-99) mg/dL Calcium 7.4 L (8.4-10.2) mg/dL Assessment and Plan Assessment: 1. Status post EKOS procedure 2. Submassive pulmonary embolism bilateral with right ventricular strain 3. syncpal episode 4. Severe peripheral arterial disease with history of right below the knee amputation Plan: 1. Discontinue right groin sheath and heparin 2. Activity as tolerated 3. Diabetes tolerated 4. Will send prescription for Eliquis to pharmacy to see for coverage, plan will be to transition IV heparin to oral anticoagulation The impression and plan of care has been dictated as directed. I performed a history and examination of this patient, discussed the same with the dictator. I agree with the dictator's note ,documented as a scribe. Any additional findings or plans will be noted.
--- NOTE | 2021-03-20 12:40 | P.PN ---
Subjective This is a very pleasant 46-year-old gentleman with a past medical history significant for hypertension, dyslipidemia, type 2 diabetes, peripheral vascular disease, chronic kidney disease currently on hemodialysis, right below the knee amputation. He follows in the office with Dr. Freed. We are consulted for elevated troponin. Patient was brought by his family to the emergency department after he had a syncopal episode at home. He lost consciousness for a few minutes. His family did CPR on him for few minutes before ambulance arrived and the patient was brought to the emergency department. EKG revealed sinus rhythm with T-wave inversion in III, V2 and V3. Troponin trend 0.11, 0.10, 0.10. D- dimer was elevated. VQ scan showed high-priority for PE. CT chest revealed pulmonary embolism with multiple filing defects noted within the pain pulmonary arteries as well as second and third order branches. There is evidence of saddle component. Echocardiogram revealed dilated right ventricle with severely reduced RV systolic function and flattening of the interventricular septum consistent with elevated RVSP in the setting of significant pulmonary embolism. Patient underwent EKOS procedure on 03/19/21. 03/20/2021: Patient seen and examined at bedside, no acute distress. Continues to require oxygen. BP 113/71, heart rate 80, afebrile, maintaining oxygen saturations on 2 L nasal cannula. Laboratory data reviewed, WBC 8.7, hemoglobin 11.1, platelets 160, sodium 132, potassium 5.2, BUN 35, serum creatinine 8.08. Telemetry reviewed, sinus mechanism HR 70-80s GENERAL: In no acute distress. NECK: Supple without JVD or thyromegaly. LUNGS: Breath sounds clear to auscultation bilaterally. Respiration equal and unlabored. No wheezes, rales or rhonchi. HEART: Regular rate and rhythm without murmurs, rubs or gallops. S1 and S2 heard. SKIN: Right femoral site with catheter. EXTREMITIES: Normal range of motion, no edema. No clubbing or cyanosis. Peripheral pulses intact. ASSESSMENT Acute Pulmonary Embolism s/p EKOS procedure 03/19/21 Enlarged right ventricle with severely reduced RV systolic function Elevated troponin, pattern not indicative of acute coronary syndrome, most likely due to pulmonary embolism Syncopal Episode End State Renal Disease on hemodialysis Type 2 Diabetes History of Hypertension- not currently on medical therapy at home Dyslipidemia PLAN Continue statin Anticoagulation per vascular surgery No new recommendations or changes from cardiology perspective Will continue to follow Nurse Practitioner note has been reviewed, I agree with a documented findings and plan of care. Patient was seen and examined. Objective - Vital Signs Vital signs: Vital Signs Temp 98.3 F 03/19/21 23:43 Pulse 80 03/20/21 07:00 Resp 20 03/20/21 07:00 BP 113/71 03/20/21 07:00 Pulse Ox 93 L 03/20/21 07:00 Intake & Output 03/19/21 03/20/21 03/20/21 18:59 06:59 18:59 Intake Total 286 1040 410 Output Total 2500 0 0 Balance -2214 1040 410 Weight 106.5 kg Intake: IV 126 1040 410 Alteplase 10 mg In Sodium 140 0 Chloride 0.9% 100 ml @ 1 MG/HR 10 mls/hr IV .Q10H [facility] Rx#:[id number] Sodium Chloride 0.9% 1, 130 130 000 ml @ 20 mls/hr IV . Q24H [facility] Rx#:[id number] Sodium Chloride 0.9% 1, 385 140 000 ml @ 35 mls/hr IV . Q24H [facility] Rx#:[id number] Sodium Chloride 0.9% 1, 385 140 000 ml @ 35 mls/hr IV . Q24H [facility] Rx#:[id number] Intake, IV Titration 160 Amount Sodium Chloride 0.9% 1, 20 000 ml @ 20 mls/hr IV . Q24H [facility] Rx#:[id number] Sodium Chloride 0.9% 1, 70 000 ml @ 35 mls/hr IV . Q24H [facility] Rx#:[id number] Sodium Chloride 0.9% 1, 70 000 ml @ 35 mls/hr IV . Q24H [facility] Rx#:[id number] Oral 0 Output: Urine 0 0 0 Hemodialysis 2500 Other: Voiding Method Urinal Urinal Urinal # Voids 0 0 - Labs CBC & Chem 7: 03/20/21 03:10 03/20/21 03:10 Labs: Abnormal Lab Results - Last 24 Hours (Table) 03/19/21 03/19/21 03/19/21 Range/Units 12:08 16:39 16:43 RBC (4.30-5.90) m/uL Hgb (13.0-17.5) gm/dL MCV (80.0-100.0) fL MCHC (31.0-37.0) g/dL RDW (11.5-15.5) % APTT 46.1 H (22.0-30.0) sec Fibrinogen 690 H (200-500) mg/dL Sodium (137-145) mmol/L Potassium (3.5-5.1) mmol/L Carbon Dioxide (22-30) mmol/L BUN (9-20) mg/dL Creatinine (0.66-1.25) mg/dL Glucose (74-99) mg/dL POC Glucose (mg/dL) 142 H 191 H (75-99) mg/dL Calcium (8.4-10.2) mg/dL 03/19/21 03/19/21 03/20/21 Range/Units 20:41 22:51 03:09 RBC (4.30-5.90) m/uL Hgb (13.0-17.5) gm/dL MCV (80.0-100.0) fL MCHC (31.0-37.0) g/dL RDW (11.5-15.5) % APTT (22.0-30.0) sec Fibrinogen 615 H (200-500) mg/dL Sodium (137-145) mmol/L Potassium (3.5-5.1) mmol/L Carbon Dioxide (22-30) mmol/L BUN (9-20) mg/dL Creatinine (0.66-1.25) mg/dL Glucose (74-99) mg/dL POC Glucose (mg/dL) 217 H 199 H (75-99) mg/dL Calcium (8.4-10.2) mg/dL 03/20/21 03/20/21 03/20/21 Range/Units 03:10 03:10 03:10 RBC 3.83 L (4.30-5.90) m/uL Hgb 11.1 L (13.0-17.5) gm/dL MCV 101.6 H (80.0-100.0) fL MCHC 28.5 L (31.0-37.0) g/dL RDW 16.6 H (11.5-15.5) % APTT (22.0-30.0) sec Fibrinogen 560 H (200-500) mg/dL Sodium 132 L (137-145) mmol/L Potassium 5.2 H (3.5-5.1) mmol/L Carbon Dioxide 21 L (22-30) mmol/L BUN 35 H (9-20) mg/dL Creatinine 8.08 H* (0.66-1.25) mg/dL Glucose 193 H (74-99) mg/dL POC Glucose (mg/dL) (75-99) mg/dL Calcium 7.4 L (8.4-10.2) mg/dL 03/20/21 Range/Units 06:35 RBC (4.30-5.90) m/uL Hgb (13.0-17.5) gm/dL MCV (80.0-100.0) fL MCHC (31.0-37.0) g/dL RDW (11.5-15.5) % APTT (22.0-30.0) sec Fibrinogen (200-500) mg/dL Sodium (137-145) mmol/L Potassium (3.5-5.1) mmol/L Carbon Dioxide (22-30) mmol/L BUN (9-20) mg/dL Creatinine (0.66-1.25) mg/dL Glucose (74-99) mg/dL POC Glucose (mg/dL) 149 H (75-99) mg/dL Calcium (8.4-10.2) mg/dL
[2021-03-20 12:54] LABS: Glucose,Whole Blood 237 mg/dL (75-99)
[2021-03-20] MEDS: APIXABAN 5 MG TAB PO SCH ×2 (15:10→21:08)
--- NOTE | 2021-03-20 16:11 | P.CNPUL ---
History of Present Illness Consult date: 03/20/21 Requesting physician: Ermias Peña Reason for consult: pulmonary embolism Chief complaint: Passing out episode History of present illness: This is a 46-year-old white male, known history of hypertension, chronic kidney disease, on hemodialysis, patient was admitted on 03/16 after a syncopal episode. Patient was brought into the ER, apparently his family performed a very brief CPR on him before the ambulance arrived. And workup in the ER showed evidence of bilateral pulmonary embolism. Patient was started on heparin, and he was seen by cardiology and by vascular surgery upon admission. Initially the plan was to anticoagulate the patient, and not to perform any interventional procedu res/placement of bilateral thrombolytic ekos catheters and initiation of thrombolysis. However the patient was reevaluated again by vascular surgery, and on 03/19/21, there was a concern about significant right ventricular strain, patient was taken to the operating room, and he underwent ultrasound-guided right femoral vein access with placement of bilateral thrombolytic EKOS catheters, and initiation of thrombolysis. Shortly after the procedure, patient was brought into the ICU, and today were asked to see him on consultation. Patient is now on heparin, he received thrombolytics already, he continues to have the catheter is in place, and he seems to be doing well, not in any form of distress. Review of Systems Constitutional: Negative HEENT: Negative. Cardiac: Negative Pulmonary: As noted in HPI GI: Negative Genitourinary: Negative Muscular skeletal: right below-knee amputation. Skin: Negative Neurologic: Negative Hematologic: Negative Psychiatric: Negative Past Medical History Past Medical History: Diabetes Mellitus, Dialysis, GERD/Reflux, Hyperlipidemia, Renal Disease Additional Past Medical History / Comment(s): See Dr Freed H&P, peritoneal dialysis every night, constipation, anemia, kidney failure, History of Any Multi-Drug Resistant Organisms: None Reported Additional Past Surgical History / Comment(s): tom cataract, peritoneal dialysis catheter rt side, Past Anesthesia/Blood Transfusion Reactions: No Reported Reaction Past Psychological History: Anxiety Smoking Status: Never smoker Past Alcohol Use History: None Reported Past Drug Use History: None Reported - Past Family History Mother Family Medical History: Cancer Father Family Medical History: Dementia Medications and Allergies Home Medications Medication Instructions Recorded Confirmed Type Atorvastatin [Lipitor] 40 mg PO HS 01/31/03/16/21 History Cyclobenzaprine [Flexeril] 5 mg PO TID 01/31/17 03/16/21 History Dialyvite 1 tab PO DAILY 01/31/17 03/16/21 History Ergocalciferol [Vitamin D2 50,000 unit PO Q14D 01/31/17 03/16/21 History (DRISDOL)] INSULIN LISPRO (For Pump) [humaLOG 0.01 units SQ-PUMP CONTINUOUS 01/31/17 03/16/21 History (For Pump)] Omeprazole [PriLOSEC] 20 mg PO BID 01/31/17 03/16/21 History Timolol [Betimol 0.5% Ophth Soln] 1 drop RIGHT EYE BID 01/31/17 03/16/21 History Furosemide [Lasix] 80 mg PO BID 10/01/20 03/16/21 History Pregabalin [Lyrica] 200 mg PO TID 10/01/20 03/16/21 History oxyCODONE-APAP 10-325MG [Percocet 1 tab PO Q6H 10/01/20 03/16/21 History 10-325 mg] Heparin Sodium,Porcine [Heparin 64,000 units MISCELLANE MOTUWEFRSA 03/16/21 03/16/21 History Sodium] Metoclopramide [Reglan] 5 mg PO TID-W/MEALS 03/16/21 03/16/21 History Midodrine HCl [ProAmatine] 10 mg PO TID 03/16/21 03/16/21 History Ondansetron HCl [Zofran] 4 mg PO BID 03/16/21 03/16/21 History Rivaroxaban [Xarelto] 2.5 mg PO BID 03/16/21 03/16/21 History Apixaban [Eliquis Starter Pack 0 mg PO DIRECTED 30 Days #1 pack 03/20/21 Rx (for VTE)] Allergies Allergy/AdvReac Type Severity Reaction Status Date / Time No Known Allergies Allergy Verified 03/16/21 07:12 Physical Exam Vitals: Vital Signs Temp Pulse Pulse Resp BP Pulse Ox 03/20/21 07:00 80 20 113/71 93 L 03/20/21 06:00 83 18 116/68 93 L 03/20/21 05:00 80 16 117/83 97 03/20/21 04:00 80 18 120/86 94 L 03/20/21 03:24 20 03/20/21 03:00 85 20 128/84 94 L 03/20/21 02:00 82 20 124/74 96 03/20/21 01:00 84 18 118/60 03/19/21 23:43 98.3 F 81 18 125/74 94 L 03/19/21 23:40 16 03/19/21 23:00 82 18 121/73 95 03/19/21 22:38 95 03/19/21 22:00 86 16 114/83 98 03/19/21 21:00 84 16 123/89 98 03/19/21 20:00 97.6 F 16 127/79 95 03/19/21 19:00 101 H 16 117/79 95 03/19/21 18:15 100 12 122/88 97 03/19/21 18:00 99 12 108/97 97 03/19/21 17:45 103 H 12 99/84 94 L 03/19/21 17:30 101 H 12 110/86 95 03/19/21 17:15 108 H 12 102/83 95 03/19/21 16:45 98.1 F 109 H 12 91/75 92 L Intake and Output 03/20/21 03/20/21 03/20/21 06:59 14:59 22:59 Intake Total 770 450 20 Output Total 0 0 Balance 770 450 20 Intake: IV 770 450 20 Alteplase 10 mg In Sodium 80 0 Chloride 0.9% 100 ml @ 1 MG/HR 10 mls/hr IV .Q10H [facility] Rx#:[id number] Sodium Chloride 0.9% 1, 130 170 20 000 ml @ 20 mls/hr IV . Q24H [facility] Rx#:[id number] Sodium Chloride 0.9% 1, 280 140 000 ml @ 35 mls/hr IV . Q24H [facility] Rx#:[id number] Sodium Chloride 0.9% 1, 280 140 000 ml @ 35 mls/hr IV . Q24H [facility] Rx#:[id number] Output: Urine 0 0 Other: Voiding Method Urinal Urinal # Voids 0 0 Weight 106.5 kg Physical Exam: Revealed a 46-year-old male in no distress., Patient is presently on 2 L nasal cannula. Head: Atraumatic, normocephalic. HEENT:[Neck is supple.] [No neck masses.] [No thyromegaly.] [No JVD.] Right subclavian dialysis catheter is noted. Chest: [Clear throughout, no crackles, no rhonchi, no wheezes.] Cardiac Exam: [Normal S1 and S2, no S3 gallop, no murmur.] Abdomen: [Soft, nontender, no megaly, no rebound, no guarding, normal bowel sounds.] Extremities: [No clubbing, no edema, no cyanosis.] Catheter is noted in the right groin, heparin is infusing through the catheters, there is a right below- knee amputation. Neurological Exam: [No focal neurologic deficit.] Alert and oriented 3. Psychiatric: Normal mood affect and normal mental status examination Results - Laboratory Findings CBC and BMP: 03/20/21 03:10 03/20/21 03:10 PT/INR, D-dimer PT 11.5 sec (9.0-12.0) 03/19/21 09:45 INR 1.1 (<1.2) 03/19/21 09:45 D-Dimer 3.45 mg/L FEU (<0.60) H 03/16/21 05:52 Abnormal lab findings: Abnormal Labs 03/16/21 03/16/21 03/16/21 05:52 05:52 05:52 WBC RBC 4.22 L Hgb 12.6 L Hct MCV MCHC RDW 15.6 H Neutrophils # APTT Fibrinogen D-Dimer 3.45 H Sodium 134 L Potassium Carbon Dioxide BUN 23 H Creatinine 6.00 H Glucose 256 H POC Glucose (mg/dL) Calcium 7.9 L AST 121 H Alkaline Phosphatase 155 H Troponin I Urine Protein Urine Glucose (UA) Ur Leukocyte Esterase Urine WBC Urine Bacteria Urine Mucus 03/16/21 03/16/21 03/16/21 05:52 05:53 09:02 WBC RBC Hgb Hct MCV MCHC RDW Neutrophils # APTT Fibrinogen D-Dimer Sodium Potassium Carbon Dioxide BUN Creatinine Glucose POC Glucose (mg/dL) 245 H Calcium AST Alkaline Phosphatase Troponin I 0.100 H* 0.106 H* Urine Protein Urine Glucose (UA) Ur Leukocyte Esterase Urine WBC Urine Bacteria Urine Mucus 03/16/21 03/16/21 03/16/21 11:59 12:09 17:27 WBC RBC Hgb Hct MCV MCHC RDW Neutrophils # APTT Fibrinogen D-Dimer Sodium Potassium Carbon Dioxide BUN Creatinine Glucose POC Glucose (mg/dL) 156 H 119 H Calcium AST Alkaline Phosphatase Troponin I 0.114 H* Urine Protein Urine Glucose (UA) Ur Leukocyte Esterase Urine WBC Urine Bacteria Urine Mucus 03/16/21 03/17/21 03/17/21 17:35 01:30 06:07 WBC RBC Hgb Hct MCV MCHC RDW Neutrophils # APTT >200.0 H* 68.3 H Fibrinogen D-Dimer Sodium Potassium Carbon Dioxide BUN Creatinine Glucose POC Glucose (mg/dL) 111 H Calcium AST Alkaline Phosphatase Troponin I Urine Protein Urine Glucose (UA) Ur Leukocyte Esterase Urine WBC Urine Bacteria Urine Mucus 03/17/21 03/17/21 03/17/21 08:40 08:41 08:41 WBC RBC 4.22 L Hgb 12.1 L Hct MCV MCHC 29.4 L RDW 16.3 H Neutrophils # APTT 46.4 H Fibrinogen D-Dimer Sodium Potassium Carbon Dioxide BUN Creatinine Glucose POC Glucose (mg/dL) 132 H Calcium AST Alkaline Phosphatase Troponin I Urine Protein Urine Glucose (UA) Ur Leukocyte Esterase Urine WBC Urine Bacteria Urine Mucus 03/17/21 03/17/21 03/17/21 12:36 15:30 17:56 WBC RBC Hgb Hct MCV MCHC RDW Neutrophils # APTT Fibrinogen D-Dimer Sodium Potassium Carbon Dioxide BUN Creatinine Glucose POC Glucose (mg/dL) 128 H 194 H Calcium AST Alkaline Phosphatase Troponin I Urine Protein 2+ H Urine Glucose (UA) Trace H Ur Leukocyte Esterase Large H Urine WBC 32 H Urine Bacteria Rare H Urine Mucus Rare H 03/17/21 03/18/21 03/18/21 21:57 01:56 06:45 WBC RBC Hgb Hct MCV MCHC RDW Neutrophils # APTT 38.3 H Fibrinogen D-Dimer Sodium Potassium Carbon Dioxide BUN Creatinine Glucose POC Glucose (mg/dL) 171 H 140 H Calcium AST Alkaline Phosphatase Troponin I Urine Protein Urine Glucose (UA) Ur Leukocyte Esterase Urine WBC Urine Bacteria Urine Mucus 03/18/21 03/18/21 03/18/21 07:24 12:08 17:26 WBC RBC Hgb Hct MCV MCHC RDW Neutrophils # APTT Fibrinogen D-Dimer Sodium Potassium Carbon Dioxide BUN Creatinine Glucose POC Glucose (mg/dL) 136 H 184 H 178 H Calcium AST Alkaline Phosphatase Troponin I Urine Protein Urine Glucose (UA) Ur Leukocyte Esterase Urine WBC Urine Bacteria Urine Mucus 03/18/21 03/18/21 03/18/21 18:38 21:57 23:35 WBC RBC Hgb Hct MCV MCHC RDW Neutrophils # APTT Fibrinogen D-Dimer Sodium Potassium Carbon Dioxide BUN Creatinine Glucose POC Glucose (mg/dL) 147 H 171 H 182 H Calcium AST Alkaline Phosphatase Troponin I Urine Protein Urine Glucose (UA) Ur Leukocyte Esterase Urine WBC Urine Bacteria Urine Mucus 03/19/21 03/19/21 03/19/21 02:21 06:08 07:47 WBC 12.8 H RBC 3.65 L Hgb 11.0 L Hct 36.3 L MCV MCHC 30.3 L RDW 16.9 H Neutrophils # 9.0 H APTT Fibrinogen D-Dimer Sodium Potassium Carbon Dioxide BUN Creatinine Glucose POC Glucose (mg/dL) 163 H 138 H Calcium AST Alkaline Phosphatase Troponin I Urine Protein Urine Glucose (UA) Ur Leukocyte Esterase Urine WBC Urine Bacteria Urine Mucus 03/19/21 03/19/21 03/19/21 07:47 09:45 12:08 WBC RBC Hgb Hct MCV MCHC RDW Neutrophils # APTT 46.9 H Fibrinogen D-Dimer Sodium 134 L Potassium 5.5 H Carbon Dioxide 19 L BUN 45 H Creatinine 10.41 H* Glucose 179 H POC Glucose (mg/dL) 142 H Calcium 7.5 L AST Alkaline Phosphatase Troponin I Urine Protein Urine Glucose (UA) Ur Leukocyte Esterase Urine WBC Urine Bacteria Urine Mucus 03/19/21 03/19/21 03/19/21 16:39 16:43 20:41 WBC RBC Hgb Hct MCV MCHC RDW Neutrophils # APTT 46.1 H Fibrinogen 690 H D-Dimer Sodium Potassium Carbon Dioxide BUN Creatinine Glucose POC Glucose (mg/dL) 191 H 217 H Calcium AST Alkaline Phosphatase Troponin I Urine Protein Urine Glucose (UA) Ur Leukocyte Esterase Urine WBC Urine Bacteria Urine Mucus 03/19/21 03/20/21 03/20/21 22:51 03:09 03:10 WBC RBC 3.83 L Hgb 11.1 L Hct MCV 101.6 H MCHC 28.5 L RDW 16.6 H Neutrophils # APTT Fibrinogen 615 H D-Dimer Sodium Potassium Carbon Dioxide BUN Creatinine Glucose POC Glucose (mg/dL) 199 H Calcium AST Alkaline Phosphatase Troponin I Urine Protein Urine Glucose (UA) Ur Leukocyte Esterase Urine WBC Urine Bacteria Urine Mucus 03/20/21 03/20/21 03/20/21 03:10 03:10 06:35 WBC RBC Hgb Hct MCV MCHC RDW Neutrophils # APTT Fibrinogen 560 H D-Dimer Sodium 132 L Potassium 5.2 H Carbon Dioxide 21 L BUN 35 H Creatinine 8.08 H* Glucose 193 H POC Glucose (mg/dL) 149 H Calcium 7.4 L AST Alkaline Phosphatase Troponin I Urine Protein Urine Glucose (UA) Ur Leukocyte Esterase Urine WBC Urine Bacteria Urine Mucus 03/20/21 03/20/21 12:07 12:52 WBC RBC Hgb Hct MCV MCHC RDW Neutrophils # APTT Fibrinogen D-Dimer Sodium Potassium Carbon Dioxide BUN Creatinine Glucose POC Glucose (mg/dL) 221 H 237 H Calcium AST Alkaline Phosphatase Troponin I Urine Protein Urine Glucose (UA) Ur Leukocyte Esterase Urine WBC Urine Bacteria Urine Mucus - Diagnostic Findings Additional studies: ET angiogram of the chest was reviewed, showed multiple filling defects within the main pulmonary arteries as well as the second and third order branches bilaterally. There is evidence of saddle component and there is evidence of right ventricular strain. Assessment and Plan Assessment: Impression: Acute hypoxic respiratory failure secondary to acute pulmonary embolism, with right ventricular strain, requiring ultrasound-guided femoral vein access and placement of bilateral thrombolytic ekos catheters and initiation of thrombolytic lysis. Postoperative day #1. End-stage renal disease on hemodialysis. Hyperkalemia, expect improvement with dialysis today. Mild volume overload secondary to end-stage renal disease Severe peripheral vessel occlusive disease with poor access for dialysis. History of right below-knee amputation. Recommendation: Continue present supportive care measures. Continue heparin. Eventually transition to oral anticoagulation therapy. Continue to monitor in the ICU for the next 24 hours. Continue incentive spirometer. Continue hemodialysis. Titrate oxygen accordingly. Continue GI prophylaxis. We will continue to follow. Time with Patient: Greater than 30
[2021-03-20 16:52] LABS: Glucose,Whole Blood 247 mg/dL (75-99)
[2021-03-20 20:37] LABS: Glucose,Whole Blood 253 mg/dL (75-99)
[2021-03-20] MEDS: ATORVASTATIN 40 MG TAB PO SCH (21:09)
[2021-03-21 01:55] LABS: Glucose,Whole Blood 159 mg/dL (75-99)
[2021-03-21 05:13] LABS: Anisocytosis Slight; Basophils # (A) 0.1 k/uL (0-0.2); Basophils % (A) 1 %; Eosinophils # (A) 0.5 k/uL (0-0.7); Eosinophils % (A) 5 %; HCT 36.3 % (39.0-53.0); HGB 10.7 gm/dL (13.0-17.5); Hypochromasia Marked; Lymphocytes % (A) 22 %; MCH 29.4 pg (25.0-35.0); MCHC 29.4 g/dL (31.0-37.0); MCV 100.1 fL (80.0-100.0); Macrocytosis Slight; Mean Platelet Volume 9.6; Monocytes # (A) 0.7 k/uL (0-1.0); Monocytes % (A) 7 %; Neutrophils # (A) 5.8 k/uL (1.3-7.7); Neutrophils % (A) 62 %; Platelet Count 171 k/uL (150-450); RBC 3.63 m/uL (4.30-5.90); WBC 9.3 k/uL (3.8-10.6)
[2021-03-21 05:36] LABS: Albumin 3.6 g/dL (3.5-5.0); Calcium 7.8 mg/dL (8.4-10.2); Potassium 4.7 mmol/L (3.5-5.1); Total Bilirubin 0.3 mg/dL (0.2-1.3); Total Protein 6.4 g/dL (6.3-8.2)
[2021-03-21 07:00] LABS: Glucose,Whole Blood 89 mg/dL (75-99)
[2021-03-21] MEDS: INSULIN ASPART (NovoLOG) 100 UNIT/ML VIAL SQ SCH ×2 (07:04→11:54)
[2021-03-21] MEDS: INSULIN PUMP MEAL BOLUS 1 UNIT MISC MISCELLANE SCH ×2 (07:04→11:54)
[2021-03-21] MEDS: PANTOPRAZOLE 40 MG TABLET PO SCH (07:07)
[2021-03-21] MEDS: MIDODRINE 5 MG TAB PO SCH ×2 (07:07→12:52)
[2021-03-21] MEDS: SODIUM CHLORIDE 0.9% 1,000 ML IV SCH (07:12)
[2021-03-21] MEDS: MAGNESIUM OXIDE 400 MG TAB PO SCH (08:02)
[2021-03-21] MEDS: APIXABAN 5 MG TAB PO SCH (08:02)
[2021-03-21] MEDS: PREGABALIN 100 MG CAP PO SCH (08:02)
[2021-03-21] MEDS: FOLIC ACID-VIT B COMPLEX-VIT C 1 CAP PO SCH (08:03)
[2021-03-21] MEDS: CYCLOBENZAPRINE 5 MG TAB PO SCH (08:03)
[2021-03-21] MEDS: oxyCODONE-APAP 10-325MG 1 EACH TAB PO PRN (08:03)
[2021-03-21] MEDS: FUROSEMIDE 80 MG TAB PO SCH (08:03)
--- NOTE | 2021-03-21 08:50 | PN ---
PROGRESS NOTE Mr. Bill is a 46-year-old male who has a history of end-stage renal disease, on peritoneal dialysis was transition to hemodialysis who presented with an acute respiratory distress and was found to have pulmonary embolism. Underwent Ecourse treatment. His catheter was removed yesterday. He was initiated on oral Eliquis. He is feeling much better today. Hemodynamically, he is stable. He is in sinus mechanism. He is breathing stable. He denies any chest pain. He denies any dizziness or palpitation. He continues to be on Eliquis 10 mg twice a day, Lipitor 40 mg daily, furosemide 80 mg twice a day, insulin, midodrine 10 mg 3 times a day, Lyrica. PHYSICAL EXAMINATION: Blood pressure running in the 120s over 70 with a heart rate in the 80s. Lungs: No wheezes or rales. HEART: Regular rate and rhythm. S1, S2. No S3. No rub. ABDOMEN: Soft, obese, nontender. EXTREMITIES: Status post right amputation, left no edema. IMPRESSION: 1. Status post Ecourse treatment for pulmonary embolism and saddle component and right ventricle strain improving. 2. End-stage renal disease, was on peritoneal dialysis, being transitioned to hemodialysis. 3. History of diabetes. 4. History of hypertension. 5. Hyperlipidemia. RECOMMENDATION: We will continue the anticoagulation as present. Follow his blood pressure and adjust the medical regimen. Increase his activity gradually. The patient will be followed down the road to have a repeat echocardiogram to re-evaluate his right-sided pressure. Depending on his progress, further recommendations will be made. MMODL / IJN: [id number] /
[2021-03-21] MEDS: TIMOLOL 0.5% OPHTH DROPS 5 ML BTL RIGHT EYE SCH (10:07)
[2021-03-21 11:27] LABS: Glucose,Whole Blood 113 mg/dL (75-99)
--- NOTE | 2021-03-21 11:40 | P.DS ---
Providers Date of admission: 03/16/21 06:56 Expected date of discharge: 03/21/21 Attending physician: Ermias Peña MD Consults: 03/16/21 06:54 Consult Physician Routine Consulting Provider: Francis Pimentel Consult Reason/Comments: elevated troponin Do you want consulting provider notified?: Yes Consult Physician Urgent Consulting Provider: Jinny Cope Consult Reason/Comments: Dialysis patient. Do you want consulting provider notified?: Yes 03/16/21 15:45 Consult Physician Routine Consulting Provider: Oumou Pereira Consult Reason/Comments: saddle PE Do you want consulting provider notified?: Yes 03/19/21 15:55 Consult Physician Routine Consulting Provider: Anisha Celeste Consult Reason/Comments: Post PE Care Do you want consulting provider notified?: Yes Primary care physician: Baldev Ayers MD Hospital Course: Discharge Diagnosis: Saddle Pulmonary embolism with right heart strain Syncope ESRD on HD DM insulin requiring HLD Morbid obesity BMI 43.3 R BKA Hyperkalemia Anemia of end-stage renal disease Hospital Course: Patient is a 46-year-old male with history of end-stage renal disease on hemodialysis Friday, Friday, Friday, Friday, Friday that he does at home, diabetes, and dyslipidemia who presented to the hospital after a syncopal episode. He was ultimately found to have evidence of that all pulmonary emboli with right ventricular strain on CTA. He was started on a heparin drip. Vascular surgery was consulted and he underwent EKOS on 03/19. Nephrology was consulted and he was maintained on his hemodialysis as well. He was seen by cardiology as well. He continued to do well. He was determined stable to be discharged. He was cleared by vascular surgery, pulmonary, and cardiology. He will start on Eliquis starter pack. He will see hematology oncology as an outpatient. He will follow-up with Dr. Corona in 3-5 days. Of note his clot may be provoked he did have a fistula intervention approximately 2 weeks prior to admission. Patient seen and examined at bedside. No pain, breathing easier, no nauea, excited to go home. Vital signs reviewed and stable. General: non toxic, no distress, appears at stated age Derm: warm, dry, multiple tatoos Head: atraumatic, normocephalic, symmetric Eyes: EOMI, no lid lag, anicteric sclera Mouth: no lip lesion, mucus membranes moist Cardiovascular: S1S2 reg, no murmur, positive posterior tibial Pulse Left , Lungs: CTA bilateral, no rhonchi, no rales , no accessory muscle use Abdominal: soft, nontender to palpation, no guarding, no appreciable organomegaly Ext: no gross muscle atrophy, no edema, no contractures Neuro: CN II-XI grossly intact, no focal neuro deficits Psych: Alert, oriented, appropriate affect A total of 35 minutes of time were spent preparing this complex discharge summary . Plan - Discharge Summary Discharge Rx Participant: Yes New Discharge Prescriptions: New Apixaban [Eliquis Starter Pack (for VTE)] 0 mg PO DIRECTED 30 Days #1 pack Continue Ergocalciferol [Vitamin D2 (DRISDOL)] 50,000 unit PO Q14D Atorvastatin [Lipitor] 40 mg PO HS Cyclobenzaprine [Flexeril] 5 mg PO TID Dialyvite 1 tab PO DAILY Timolol [Betimol 0.5% Ophth Soln] 1 drop RIGHT EYE BID Omeprazole [PriLOSEC] 20 mg PO BID INSULIN LISPRO (For Pump) [humaLOG (For Pump)] 0.01 units SQ-PUMP CONTINUOUS Furosemide [Lasix] 80 mg PO BID oxyCODONE-APAP 10-325MG [Percocet 10-325 mg] 1 tab PO Q6H Pregabalin [Lyrica] 200 mg PO TID Ondansetron HCl [Zofran] 4 mg PO BID Midodrine HCl [ProAmatine] 10 mg PO TID Metoclopramide [Reglan] 5 mg PO TID-W/MEALS Heparin Sodium,Porcine [Heparin Sodium] 64,000 units MISCELLANE MOTUWEFRSA Discontinued Rivaroxaban [Xarelto] 2.5 mg PO BID Discharge Medication List Atorvastatin [Lipitor] 40 mg PO HS 01/31/17 [History] Cyclobenzaprine [Flexeril] 5 mg PO TID 01/31/17 [History] Dialyvite 1 tab PO DAILY 01/31/17 [History] Ergocalciferol [Vitamin D2 (DRISDOL)] 50,000 unit PO Q14D 01/31/17 [History] INSULIN LISPRO (For Pump) [humaLOG (For Pump)] 0.01 units SQ-PUMP CONTINUOUS 01/31/17 [History] Omeprazole [PriLOSEC] 20 mg PO BID 01/31/17 [History] Timolol [Betimol 0.5% Ophth Soln] 1 drop RIGHT EYE BID 01/31/17 [History] Furosemide [Lasix] 80 mg PO BID 10/01/20 [History] Pregabalin [Lyrica] 200 mg PO TID 10/01/20 [History] oxyCODONE-APAP 10-325MG [Percocet 10-325 mg] 1 tab PO Q6H 10/01/20 [History] Heparin Sodium,Porcine [Heparin Sodium] 64,000 units MISCELLANE MOTUWEFRSA 03/16/21 [History] Metoclopramide [Reglan] 5 mg PO TID-W/MEALS 03/16/21 [History] Midodrine HCl [ProAmatine] 10 mg PO TID 03/16/21 [History] Ondansetron HCl [Zofran] 4 mg PO BID 03/16/21 [History] Apixaban [Eliquis Starter Pack (for VTE)] 0 mg PO DIRECTED 30 Days #1 pack 03/20/21 [Rx] Follow up Appointment(s)/Referral(s): Bernard Turner DO [STAFF PHYSICIAN] - 2 Weeks Baldev Ayers MD [Primary Care Provider] - 1-2 days Eamon Lu MD [STAFF PHYSICIAN] - 4 Weeks Jinny Cope MD [STAFF PHYSICIAN] - As Needed (as previsouly scheduled) Patient Instructions/Handouts: Pulmonary Embolism (DC) Activity/Diet/Wound Care/Special Instructions: Activity: as tolerated Diet: carb consistent, renal Special Instructions: NO NSAIDS in addition to eliquis Follow-up with your graft surgeon as scheduled prior. Discharge Disposition: HOME SELF-CARE
[2021-03-21 12:01] VITALS: PULSE 94
[2021-03-21 12:56] VITALS: BP 128/100; RESP 18; TEMP 97.7
--- NOTE | 2021-03-21 13:23 | P.PN ---
Subjective Progress Note Date: 03/21/21 Principal diagnosis: Pulmonary embolism with right heart strain Seen and examined sitting up in bed in the ICU. He is status post EKOS procedure 2 days ago. He states his breathing has improved, he is denying any chest pain or significant shortness of breath. No fevers through the night. No bleeding from his right groin. He has been weaned off his oxygen and is oxygen saturation is 92-94%. He has been started onEliquis 10 mg by mouth twice daily. Objective - Vital Signs Vital signs: Vital Signs Temp 97.7 F 03/21/21 12:55 Pulse 94 03/21/21 12:55 Resp 18 03/21/21 12:55 BP 128/100 03/21/21 12:55 Pulse Ox 90 L 03/21/21 12:00 Intake & Output 03/20/21 03/21/21 03/21/21 18:59 06:59 18:59 Intake Total 500 170 70 Output Total 0 550 2000 Balance 500 380 -1930 Weight 103.9 kg Intake: IV 500 120 70 Alteplase 10 mg In Sodium 0 Chloride 0.9% 100 ml @ 1 MG/HR 10 mls/hr IV .Q10H ONE Rx#:[id number] Sodium Chloride 0.9% 1, 220 120 70 000 ml @ 20 mls/hr IV . Q24H GABY Rx#:[id number] Sodium Chloride 0.9% 1, 140 000 ml @ 35 mls/hr IV . Q24H GABY Rx#:[id number] Sodium Chloride 0.9% 1, 140 000 ml @ 35 mls/hr IV . Q24H GABY Rx#:[id number] Oral 50 Output: Urine 0 550 Hemodialysis 2000 Other: Voiding Method Urinal Urinal Urinal # Voids 0 - Exam General appearance: The patient is alert, oriented, appears in no acute distress. HET: Head is normocephalic and atraumatic. Neck: Supple without lymphadenopathy. Trachea midline. Heart: S1 S2. Regular rate and rhythm. Lungs: Clear to auscultation. Abdomen: Obese, Soft, nontender, nondistended. Extremities: Normal skin color and turgor. Right lower extremity BKA. Left upper extremity fistula. Right groin with dressing clean dry and intact, no active bleeding. Neurological: No focal deficits. Strength and sensation are grossly intact. - Labs CBC & Chem 7: 03/21/21 04:37 03/21/21 04:37 Labs: Abnormal Lab Results - Last 24 Hours (Table) 03/20/21 03/20/21 03/21/21 Range/Units 16:51 20:35 01:53 RBC (4.30-5.90) m/uL Hgb (13.0-17.5) gm/dL Hct (39.0-53.0) % MCV (80.0-100.0) fL MCHC (31.0-37.0) g/dL RDW (11.5-15.5) % BUN (9-20) mg/dL Creatinine (0.66-1.25) mg/dL Glucose (74-99) mg/dL POC Glucose (mg/dL) 247 H 253 H 159 H (75-99) mg/dL Calcium (8.4-10.2) mg/dL Alkaline Phosphatase (38-126) U/L 03/21/21 03/21/21 03/21/21 Range/Units 04:37 04:37 11:26 RBC 3.63 L (4.30-5.90) m/uL Hgb 10.7 L (13.0-17.5) gm/dL Hct 36.3 L (39.0-53.0) % MCV 100.1 H (80.0-100.0) fL MCHC 29.4 L (31.0-37.0) g/dL RDW 17.0 H (11.5-15.5) % BUN 46 H (9-20) mg/dL Creatinine 9.35 H* (0.66-1.25) mg/dL Glucose 127 H (74-99) mg/dL POC Glucose (mg/dL) 113 H (75-99) mg/dL Calcium 7.8 L (8.4-10.2) mg/dL Alkaline Phosphatase 132 H (38-126) U/L Assessment and Plan Assessment: 1. Status post EKOS procedure 2. Submassive pulmonary embolism bilateral with right ventricular strain 3. syncpal episode 4. Severe peripheral arterial disease with history of right below the knee amputation Plan: 1. Increase activity as tolerated 2. Continue Eliquis 10 mg by mouth twice a day 7 days then transition to 5 mg by mouth twice a day 3. Recommend repeat echocardiogram within the next 1-5 days, cardiology to set up outpatient echocardiogram 4. Patient may be discharged home from a vascular surgical standpoint with follow-up with Dr. Turner 1-2 weeks The impression and plan of care has been dictated as directed. Dr Pereira I performed a history and examination of this patient, discussed the same with the dictator. I agree with the dictator's note ,documented as a scribe. Any additional findings or plans will be noted.
--- NOTE | 2021-03-21 13:36 | P.PN ---
Subjective Progress Note Date: 03/21/21 Principal diagnosis: Acute pulmonary embolism This is a 46-year-old white male, known history of hypertension, chronic kidney disease, on hemodialysis, patient was admitted on 03/16 after a syncopal episode. Patient was brought into the ER, apparently his family performed a very brief CPR on him before the ambulance arrived. And workup in the ER showed evidence of bilateral pulmonary embolism. Patient was started on heparin, and he was seen by cardiology and by vascular surgery upon admission. Initially the plan was to anticoagulate the patient, and not to perform any interventional procedures/placement of bilateral thrombolytic ekos catheters and initiation of thrombolysis. However the patient was reevaluated again by vascular surgery, and on 03/19/21, there was a concern about significant right ventricular strain, patient was taken to the operating room, and he underwent ultrasound-guided right femoral vein access with placement of bilateral thrombolytic EKOS c atheters, and initiation of thrombolysis. Shortly after the procedure, patient was brought into the ICU, and today were asked to see him on consultation. Patient is now on heparin, he received thrombolytics already, he continues to have the catheter is in place, and he seems to be doing well, not in any form of distress. Patient was reevaluated today on 03/21/2021, patient remains in the ICU, however he is doing extremely well, he was transitioned from heparin to Eliquis, denies any specific pulmonary complaints. He is to receive hemodialysis today, and the plan is to discharge the patient home today after hemodialysis. No active pulmonary complaints, patient is on room air, and saturating quite well. CBC is relatively normal lites are normal BUN is 46 creatinine 9.35 Objective - Vital Signs Vital signs: Vital Signs Temp 97.7 F 03/21/21 12:55 Pulse 94 03/21/21 12:55 Resp 18 03/21/21 12:55 BP 128/100 03/21/21 12:55 Pulse Ox 90 L 03/21/21 12:00 Intake & Output 03/20/21 03/21/21 03/21/21 18:59 06:59 18:59 Intake Total 500 170 70 Output Total 0 550 2000 Balance 500 -380 -1930 Weight 103.9 kg Intake: IV 500 120 70 Alteplase 10 mg In Sodium 0 Chloride 0.9% 100 ml @ 1 MG/HR 10 mls/hr IV .Q10H ONE Rx#:[id number] Sodium Chloride 0.9% 1, 220 120 70 000 ml @ 20 mls/hr IV . Q24H GABY Rx#:[id number] Sodium Chloride 0.9% 1, 140 000 ml @ 35 mls/hr IV . Q24H GABY Rx#:[id number] Sodium Chloride 0.9% 1, 140 000 ml @ 35 mls/hr IV . Q24H GABY Rx#:[id number] Oral 50 Output: Urine 0 550 Hemodialysis 2000 Other: Voiding Method Urinal Urinal Urinal # Voids 0 - Exam Physical Exam: Revealed a 46-year-old male in no distress, on room air. Head: Atraumatic, normocephalic. HEENT:[Neck is supple.] [No neck masses.] [No thyromegaly.] [No JVD.] Right subclavian dialysis catheter is noted. Chest: [Clear throughout, no crackles, no rhonchi, no wheezes.] Cardiac Exam: [Normal S1 and S2, no S3 gallop, no murmur.] Abdomen: [Soft, nontender, no megaly, no rebound, no guarding, normal bowel sounds.] Extremities: [No clubbing, no edema, no cyanosis.] Groin catheters have been removed. Neurological Exam: [No focal neurologic deficit.] Alert and oriented 3. Psychiatric: Normal mood affect and normal mental status examination - Labs CBC & Chem 7: 03/21/21 04:37 03/21/21 04:37 Labs: Abnormal Lab Results - Last 24 Hours (Table) 03/20/21 03/20/21 03/21/21 Range/Units 16:51 20:35 01:53 RBC (4.30-5.90) m/uL Hgb (13.0-17.5) gm/dL Hct (39.0-53.0) % MCV (80.0-100.0) fL MCHC (31.0-37.0) g/dL RDW (11.5-15.5) % BUN (9-20) mg/dL Creatinine (0.66-1.25) mg/dL Glucose (74-99) mg/dL POC Glucose (mg/dL) 247 H 253 H 159 H (75-99) mg/dL Calcium (8.4-10.2) mg/dL Alkaline Phosphatase (38-126) U/L 03/21/21 03/21/21 03/21/21 Range/Units 04:37 04:37 11:26 RBC 3.63 L (4.30-5.90) m/uL Hgb 10.7 L (13.0-17.5) gm/dL Hct 36.3 L (39.0-53.0) % MCV 100.1 H (80.0-100.0) fL MCHC 29.4 L (31.0-37.0) g/dL RDW 17.0 H (11.5-15.5) % BUN 46 H (9-20) mg/dL Creatinine 9.35 H* (0.66-1.25) mg/dL Glucose 127 H (74-99) mg/dL POC Glucose (mg/dL) 113 H (75-99) mg/dL Calcium 7.8 L (8.4-10.2) mg/dL Alkaline Phosphatase 132 H (38-126) U/L Assessment and Plan Assessment: Impression: Acute hypoxic respiratory failure secondary to acute pulmonary embolism, with right ventricular strain, requiring ultrasound-guided femoral vein access and placement of bilateral thrombolytic ekos catheters and initiation of thrombolytic lysis. Postoperative day #2 End-stage renal disease on hemodialysis. Hyperkalemia, expect improvement with dialysis today. Mild volume overload secondary to end-stage renal disease Severe peripheral vessel occlusive disease with poor access for dialysis. History of right below-knee amputation. Recommendation: Agree with the present treatment plan. Agree with Anne. Agree with discharge planning. Cleared for discharge from our perspective Time with Patient: Less than 30
--- NOTE | 2021-03-21 15:25 | PN ---
PROGRESS NOTE Patient is seen for followup for end-stage renal disease. He is currently lying in bed. He is having his dialysis treatment, tolerating very well. No complaints of chest pains or shortness of breath. Consideration for possible discharge today. PHYSICAL EXAMINATION: Blood pressure 128/100, heart rate of 94 per minute. He is afebrile. No significant edema noted lower extremities. Abdomen is soft, obese, nontender. USER SUPPORT ANALYST exam grossly intact. Patient has right BKA. His catheter is functioning fairly well. He does have a HERO graft in his left upper extremity. LABS: Show sodium 138, potassium 4.7, BUN 46, creatinine 9.35, hemoglobin 10.7 g/dL. ASSESSMENT: 1. End-stage renal disease, on home hemodialysis. Currently maintained on a Friday, Friday, Friday schedule during the hospitalization. 2. Bilateral PE status post EKOS procedure, maintained on anticoagulation. 3. Anemia of chronic disease. 4. Chronic kidney disease mineral bone disorder. 5. Volume overload, currently improved. PLAN: Next dialysis will be on Friday if the patient is still in the hospital. Otherwise, he can resume his home hemodialysis treatments post discharge. Continue with the higher dose of Eliquis at least for a few days post discharge as per vascular surgery and then can go down to 5 mg b.i.d. MMODL / IJN: [id number] /
[2021-03-22] MEDS ORDERED: ERGOCALCIFEROL 1,250 MCG (50,000 IU) CAPSULE PO SCH (09:00)
== END 2021-03-21 14:59 | disposition home or self-care (01) | DRG 166 ==
LOC: EC 05:34 → 3SCARD 06:56 → 2SICU 03-19 14:40
PROVIDERS: ADMIT Internal Medicine; ATTEND Internal Medicine
PROC: 5A0945A Assistance with Respiratory Ventilation, 24-96 Consecutive Hours, High Flow/Velocity Cannula (ICD-10-PCS; 2021-03-16)
PROC: 5A1D70Z Performance of Urinary Filtration, Intermittent, Less than 6 Hours Per Day (ICD-10-PCS; 2021-03-16)
PROC: 02FQ3Z0 Fragmentation of Right Pulmonary Artery, Percutaneous Approach, Ultrasonic (ICD-10-PCS; 2021-03-19)
PROC: 02HV33Z Insertion of Infusion Device into Superior Vena Cava, Percutaneous Approach (ICD-10-PCS; 2021-03-19)
PROC: B548ZZA Ultrasonography of Superior Vena Cava, Guidance (ICD-10-PCS; 2021-03-19)
PROC: B31T1ZZ Fluoroscopy of Left Pulmonary Artery using Low Osmolar Contrast (ICD-10-PCS; 2021-03-19)
PROC: B31S1ZZ Fluoroscopy of Right Pulmonary Artery using Low Osmolar Contrast (ICD-10-PCS; 2021-03-19)
PROC: 02FR3Z0 Fragmentation of Left Pulmonary Artery, Percutaneous Approach, Ultrasonic (ICD-10-PCS; principal; 2021-03-19 14:00)
DX: I26.92 Saddle embolus of pulmonary artery without acute cor pulmonale (principal); N18.6 End stage renal disease; J96.01 Acute respiratory failure with hypoxia; I12.0 Hypertensive chronic kidney disease with stage 5 chronic kidney disease or end stage renal disease; Z68.41 Body mass index [BMI] 40.0-44.9, adult; R55 Syncope and collapse; E11.65 Type 2 diabetes mellitus with hyperglycemia; E78.5 Hyperlipidemia, unspecified; E11.22 Type 2 diabetes mellitus with diabetic chronic kidney disease; Z99.2 Dependence on renal dialysis; Z20.822 Contact with and (suspected) exposure to COVID-19; E66.01 Morbid (severe) obesity due to excess calories; E11.51 Type 2 diabetes mellitus with diabetic peripheral angiopathy without gangrene; I12.9 Hypertensive chronic kidney disease with stage 1 through stage 4 chronic kidney disease, or unspecified chronic kidney disease; I95.89 Other hypotension; E87.5 Hyperkalemia; E87.70 Fluid overload, unspecified; F41.9 Anxiety disorder, unspecified; I51.7 Cardiomegaly; Z86.16 Personal history of COVID-19; Z79.4 Long term (current) use of insulin; Z79.01 Long term (current) use of anticoagulants; Z89.511 Acquired absence of right leg below knee; D63.1 Anemia in chronic kidney disease; R77.8 Other specified abnormalities of plasma proteins; L29.9 Pruritus, unspecified; M89.9 Disorder of bone, unspecified; Z96.41 Presence of insulin pump (external) (internal); Z80.9 Family history of malignant neoplasm, unspecified; Z79.899 Other long term (current) drug therapy
CPT/HCPCS: 36415; 37211; 71045; 71275; 78582; 80048; 80053; 81001; 82533; 83735; 83880; 84484; 85025; 85379; 85384; 85610; 85730; 87635; 90935; 93005; 93306; 96360; 99285

== ENCOUNTER 2021-04-07 09:40 | Inpatient (IN) | payer MEDICARE, OTHER ==
--- NOTE | 2021-04-07 09:52 | ED ---
General Adult HPI - General Chief complaint: Syncope Stated complaint: syncope Time Seen by Provider: 04/07/21 09:44 Source: patient, EMS, RN notes reviewed, old records reviewed Mode of arrival: EMS Limitations: no limitations - History of Present Illness Initial comments: 46-year-old male with significant past medical history, end-stage renal disease, diabetes, right BKA, and recent saddle pulmonary embolism requiring intervention presents with 2 episodes of syncope. Patient transported by EMS, he had been about to initiate home hemodialysis. He had not completed any dialysis. He passed out 2 times and also had 2 falls 1 resulting in minor head trauma. - Related Data Home Medications Medication Instructions Recorded Confirmed Atorvastatin [Lipitor] 40 mg PO HS 01/31/17 03/16/21 Cyclobenzaprine [Flexeril] 5 mg PO TID 01/31/17 03/16/21 Dialyvite 1 tab PO DAILY 01/31/17 03/16/21 Ergocalciferol [Vitamin D2 50,000 unit PO Q14D 01/31/17 03/16/21 (DRISDOL)] INSULIN LISPRO (For Pump) [humaLOG 0.01 units SQ-PUMP CONTINUOUS 01/31/17 03/16/21 (For Pump)] Omeprazole [PriLOSEC] 20 mg PO BID 01/31/17 03/16/21 Timolol [Betimol 0.5% Ophth Soln] 1 drop RIGHT EYE BID 01/31/17 03/16/21 Furosemide [Lasix] 80 mg PO BID 10/01/20 03/16/21 Pregabalin [Lyrica] 200 mg PO TID 10/01/20 03/16/21 oxyCODONE-APAP 10-325MG [Percocet 1 tab PO Q6H 10/01/20 03/16/21 10-325 mg] Heparin Sodium,Porcine [Heparin 64,000 units MISCELLANE MOTUWEFRSA 03/16/21 03/16/21 Sodium] Metoclopramide [Reglan] 5 mg PO TID-W/MEALS 03/16/21 03/16/21 Midodrine HCl [ProAmatine] 10 mg PO TID 03/16/21 03/16/21 Ondansetron HCl [Zofran] 4 mg PO BID 03/16/21 03/16/21 Previous Rx's Medication Instructions Recorded Apixaban [Eliquis Starter Pack 0 mg PO DIRECTED 30 Days #1 pack 03/20/21 (for VTE)] Allergies Allergy/AdvReac Type Severity Reaction Status Date / Time No Known Allergies Allergy Verified 04/07/21 09:52 Review of Systems ROS Statement: Those systems with pertinent positive or pertinent negative responses have been documented in the HPI. ROS Other: All systems not noted in ROS Statement are negative. Past Medical History Past Medical History: Diabetes Mellitus, Dialysis, GERD/Reflux, Hyperlipidemia, Renal Disease Additional Past Medical History / Comment(s): See Dr Freed H&P, peritoneal dialysis every night, constipation, anemia, kidney failure, History of Any Multi-Drug Resistant Organisms: None Reported Additional Past Surgical History / Comment(s): tom cataract, peritoneal dialysis catheter rt side, Past Anesthesia/Blood Transfusion Reactions: No Reported Reaction Past Psychological History: Anxiety Smoking Status: Never smoker Past Alcohol Use History: None Reported Past Drug Use History: None Reported - Past Family History Mother Family Medical History: Cancer Father Family Medical History: Dementia General Exam Limitations: no limitations General appearance: alert, in no apparent distress Head exam: Present: normocephalic. Absent: atraumatic (Contusion ecchymosis left forehead.) Eye exam: Present: normal appearance, PERRL ENT exam: Present: normal exam Neck exam: Present: normal inspection. Absent: tenderness, meningismus Respiratory exam: Present: normal lung sounds bilaterally, respiratory distress Cardiovascular Exam: Present: normal rhythm, tachycardia GI/Abdominal exam: Present: soft. Absent: distended, tenderness, guarding Extremities exam: Present: other (left bka) Neurological exam: Present: alert, oriented X3, CN II-XII intact. Absent: motor sensory deficit Psychiatric exam: Present: normal affect, normal mood Skin exam: Present: warm, dry, intact. Absent: cyanosis, diaphoretic Course Vital Signs 04/07/21 04/07/21 09:43 11:10 Temperature 98.6 F Pulse Rate 103 H 90 Respiratory 20 20 Rate Blood Pressure 113/90 98/58 O2 Sat by Pulse 88 L 96 Oximetry EKG Findings - EKG Comments: EKG Findings:: EKG: Sinus tachycardia, T-wave inversion and flattening in the precordial leads as well as inferior leads, rate of 104 S1 q 3 T3 pattern TN interval 142, QRS duration 84, QTC 460 Medical Decision Making - Medical Decision Making 46-year-old male with syncope, tachycardia and hypoxia. Repeat CT angiography is performed which shows significant bilateral pulmonary emboli with right heart strain. EKG shows right heart strain. I did perform a head CT for head trauma and this was negative for intracranial hemorrhage or mass effect. Case discussed with Dr. Pereira covering for vascular surgery who does agree with heparin administration, no intervention at this time. I discussed case with will admit. Nephrology placed on consult for hemodialysis. - Lab Data Result diagrams: 04/07/21 09:59 04/07/21 09:59 Lab Results 04/07/21 04/07/21 04/07/21 Range/Units 09:56 09:59 09:59 WBC 15.3 H (3.8-10.6) k/uL RBC 4.17 L (4.30-5.90) m/uL Hgb 12.3 L (13.0-17.5) gm/dL Hct 40.7 (39.0-53.0) % MCV 97.6 (80.0-100.0) fL MCH 29.6 (25.0-35.0) pg MCHC 30.3 L (31.0-37.0) g/dL RDW 18.5 H (11.5-15.5) % Plt Count 170 (150-450) k/uL MPV 10.8 Neutrophils % 83 % Lymphocytes % 9 % Monocytes % 4 % Eosinophils % 2 % Basophils % 1 % Neutrophils # 12.7 H (1.3-7.7) k/uL Lymphocytes # 1.4 (1.0-4.8) k/uL Monocytes # 0.7 (0-1.0) k/uL Eosinophils # 0.3 (0-0.7) k/uL Basophils # 0.1 (0-0.2) k/uL Hypochromasia Marked Poikilocytosis Slight Anisocytosis Slight Macrocytosis Slight Sodium 133 L (137-145) mmol/L Potassium 3.5 (3.5-5.1) mmol/L Chloride 96 L (98-107) mmol/L Carbon Dioxide 22 (22-30) mmol/L Anion Gap 15 mmol/L BUN 42 H (9-20) mg/dL Creatinine 7.97 H* (0.66-1.25) mg/dL Est GFR (CKD-EPI)AfAm 9 (>60 ml/min/1.73 sqM) Est GFR (CKD-EPI)NonAf 7 (>60 ml/min/1.73 sqM) Glucose 427 H (74-99) mg/dL POC Glucose (mg/dL) 426 H (75-99) mg/dL POC Glu Brine Maker ID Keyon Luna Calcium 8.1 L (8.4-10.2) mg/dL Magnesium 1.7 (1.6-2.3) mg/dL Total Bilirubin 0.5 (0.2-1.3) mg/dL AST 37 (17-59) U/L ALT 14 (4-49) U/L Alkaline Phosphatase 192 H (38-126) U/L Troponin I (0.000-0.034) ng/mL Total Protein 7.1 (6.3-8.2) g/dL Albumin 4.1 (3.5-5.0) g/dL 04/07/21 Range/Units 09:59 WBC (3.8-10.6) k/uL RBC (4.30-5.90) m/uL Hgb (13.0-17.5) gm/dL Hct (39.0-53.0) % MCV (80.0-100.0) fL MCH (25.0-35.0) pg MCHC (31.0-37.0) g/dL RDW (11.5-15.5) % Plt Count (150-450) k/uL MPV Neutrophils % % Lymphocytes % % Monocytes % % Eosinophils % % Basophils % % Neutrophils # (1.3-7.7) k/uL Lymphocytes # (1.0-4.8) k/uL Monocytes # (0-1.0) k/uL Eosinophils # (0-0.7) k/uL Basophils # (0-0.2) k/uL Hypochromasia Poikilocytosis Anisocytosis Macrocytosis Sodium (137-145) mmol/L Potassium (3.5-5.1) mmol/L Chloride (98-107) mmol/L Carbon Dioxide (22-30) mmol/L Anion Gap mmol/L BUN (9-20) mg/dL Creatinine (0.66-1.25) mg/dL Est GFR (CKD-EPI)AfAm (>60 ml/min/1.73 sqM) Est GFR (CKD-EPI)NonAf (>60 ml/min/1.73 sqM) Glucose (74-99) mg/dL POC Glucose (mg/dL) (75-99) mg/dL POC Glu Brine Maker ID Calcium (8.4-10.2) mg/dL Magnesium (1.6-2.3) mg/dL Total Bilirubin (0.2-1.3) mg/dL AST (17-59) U/L ALT (4-49) U/L Alkaline Phosphatase (38-126) U/L Troponin I 0.022 (0.000-0.034) ng/mL Total Protein (6.3-8.2) g/dL Albumin (3.5-5.0) g/dL Critical Care Time Critical Care Time: Yes Total Critical Care Time: 35 Disposition Clinical Impression: Pulmonary embolism, Syncope, End stage renal disease Disposition: ADMITTED IP TO THIS [facility] Condition: Serious Is patient prescribed a controlled substance at d/c from ED?: No Referrals: Baldev Ayers MD [Primary Care Provider] - 1-2 days Decision to Admit Reason: Admit from EC Decision Date: 04/07/21 Decision Time: 11:33
[2021-04-07 09:57] LABS: Glucose,Whole Blood 426 mg/dL (75-99)
[2021-04-07 10:11] LABS: Anisocytosis Slight; Basophils # (A) 0.1 k/uL (0-0.2); Basophils % (A) 1 %; Eosinophils # (A) 0.3 k/uL (0-0.7); Eosinophils % (A) 2 %; HCT 40.7 % (39.0-53.0); HGB 12.3 gm/dL (13.0-17.5); Hypochromasia Marked; Lymphocytes # (A) 1.4 k/uL (1.0-4.8); Lymphocytes % (A) 9 %; MCH 29.6 pg (25.0-35.0); MCHC 30.3 g/dL (31.0-37.0); MCV 97.6 fL (80.0-100.0); Macrocytosis Slight; Mean Platelet Volume 10.8; Monocytes # (A) 0.7 k/uL (0-1.0); Monocytes % (A) 4 %; Neutrophils # (A) 12.7 k/uL (1.3-7.7); Neutrophils % (A) 83 %; Platelet Count 170 k/uL (150-450); Poikilocytosis Slight; RBC 4.17 m/uL (4.30-5.90); RDW 18.5 % (11.5-15.5); WBC 15.3 k/uL (3.8-10.6)
[2021-04-07 10:25] LABS: Albumin 4.1 g/dL (3.5-5.0); Calcium 8.1 mg/dL (8.4-10.2); Magnesium 1.7 mg/dL (1.6-2.3); Potassium 3.5 mmol/L (3.5-5.1); Total Bilirubin 0.5 mg/dL (0.2-1.3); Total Protein 7.1 g/dL (6.3-8.2)
--- NOTE | 2021-04-07 10:36 | CT ---
EXAMINATION TYPE: CT brain wo con DATE OF EXAM: 04/07/2021 COMPARISON: Trauma injury with pain. HISTORY: syncopal fall, hypoxia, history of recent pe CT DLP: 995.8 mGycm. Automated Exposure Control for Dose Reduction was Utilized. TECHNIQUE: CT scan of the head is performed without contrast. FINDINGS: There is no acute intracranial hemorrhage hemorrhage or midline shift identified. Mild ve ntricular and sulcal prominence over bilateral frontal and temporal lobes. Block-white matter differe ntiation maintained. The calvarium is intact. The globes are intact and the visualized sinuses are cl ear. IMPRESSION: No acute intracranial hemorrhage or midline shift is seen.
[2021-04-07] MEDS ORDERED: HEPARIN SODIUM 1,000 UN/ML (10ML VL) IV PRN ×2 (10:56→11:59)
[2021-04-07] MEDS ORDERED: HEPARIN SODIUM 1,000 UN/ML (10ML VL) IV ONE ×2 (10:56→11:59)
--- NOTE | 2021-04-07 10:56 | CT ---
EXAMINATION TYPE: CT angio chest DATE OF EXAM: 04/07/2021 10:28 AM COMPARISON: CT chest March 08, 2021 HISTORY: hypoxia, syncope, history or recent pe CT DLP: 637.5 mGycm Automated exposure control for dose reduction was used. CONTRAST: CTA scan of the thorax is performed with IV Contrast, patient injected with 100 mL of Isovue 370, pul monary embolism protocol. MIP images are created and reviewed. FINDINGS: LUNGS: Low lung volumes redemonstrated. Persistent dependent atelectasis and/or limited consolidation posteriorly in both lungs less prominent than prior. Mild bibasilar linear scarring and/or atelectas is also less prominent than prior. No significant pleural effusion or pneumothorax seen bilaterally. MEDIASTINUM: There is satisfactory enhancement of the pulmonary artery and its branches, there is per sistent bilateral pulmonary emboli beginning in lobar branches to the bilateral lower lobes along wit h the right middle lobe and lingula and branches of the bilateral upper lobes fairly similar to prior . Only some improvement in the linear central pulmonary embolism on prior study which now is not seen . Stable right ventricular dilatation. There are no greater than 1 cm hilar or mediastinal lymph nod es. Tiny pericardial effusion is stable. No cardiomegaly. OTHER: Large 4 right internal jugular and left internal jugular dialysis catheters terminating in ri ght atrium and cavoatrial junction noted. IMPRESSION: Significant bilateral pulmonary emboli with persistent CT evidence of right ventricular s train. Results communicated to ordering ER physician via telephone at time of dictation.
[2021-04-07] MEDS ORDERED: HEPARIN SOD,PORK IN 0.45% NACL 25,000 UNIT in 0.45% NACL 1 250ML.BAG IV SCH (11:00)
[2021-04-07] MEDS ORDERED: NALOXONE 0.4 MG/ML 1 ML VIAL IV PRN (11:29)
[2021-04-07] MEDS ORDERED: ACETAMINOPHEN TAB 325 MG TAB PO PRN (11:29)
[2021-04-07] MEDS ORDERED: INSULIN REGULAR 100 UNIT/ML VIAL (IV) IV ONE (11:31)
[2021-04-07 11:51] LABS: INR 1.1 (<1.2); Partial Thromboplastin Time 33.2 sec (22.0-30.0); Prothrombin Time 11.7 sec (9.0-12.0)
[2021-04-07] MEDS: HEPARIN SOD,PORK IN 0.45% NACL 25,000 UNIT in 0.45% NACL 1 250ML.BAG IV SCH (12:16)
[2021-04-07] MEDS: SODIUM CHLORIDE 0.9% 1,000 ML IV SCH (12:45)
[2021-04-07 12:51] LABS: Glucose,Whole Blood 192 mg/dL (75-99)
--- NOTE | 2021-04-07 12:53 | P.HPIM ---
History of Present Illness H&P Date: 04/07/21 Chief Complaint: Syncope This is a 46-year-old male with very complex past medical history noted below significant for recently diagnosed bilateral PE status post EKOS who was discharged from the hospital approximately 2 weeks ago and returns today after having syncopal episode at home. Patient said that he was trying to get up when he passed out. His son told him that he was out for approximately 2 minutes. EMS were called and transferred patient to the emergency room. No reported hypoglycemia. Patient is currently awake and alert. He is hemodynamically stable. He has been getting dialysis at home as usual. He he said that yesterday he felt a little dehydrated after having a long walk by the river. He denies any chest pain or shortness of breath. He was evaluated in the ER and a CT angiogram of the chest showed persistent bilateral PE with persistent e vidence of right ventricular strain. Patient is currently on 4 L of oxygen. Review of Systems Review of system: 14 points review of systems were obtained and were negative except to what were mentioned in the HPI. Past Medical History Past Medical History: Diabetes Mellitus, Dialysis, GERD/Reflux, Hyperlipidemia, Renal Disease Additional Past Medical History / Comment(s): See Dr Freed H&P, peritoneal dialysis every night, constipation, anemia, kidney failure, History of Any Multi-Drug Resistant Organisms: None Reported Additional Past Surgical History / Comment(s): tom cataract, peritoneal dialysis catheter rt side, Past Anesthesia/Blood Transfusion Reactions: No Reported Reaction Past Psychological History: Anxiety Smoking Status: Never smoker Past Alcohol Use History: None Reported Past Drug Use History: None Reported - Past Family History Mother Family Medical History: Cancer Father Family Medical History: Dementia Medications and Allergies Home Medications Medication Instructions Recorded Confirmed Type Atorvastatin [Lipitor] 40 mg PO HS 01/31/17 03/16/21 History Cyclobenzaprine [Flexeril] 5 mg PO TID 01/31/17 03/16/21 History Dialyvite 1 tab PO DAILY 01/31/17 03/16/21 History Ergocalciferol [Vitamin D2 50,000 unit PO Q14D 01/31/17 03/16/21 History (DRISDOL)] INSULIN LISPRO (For Pump) [humaLOG 0.01 units SQ-PUMP CONTINUOUS 01/31/17 03/16/21 History (For Pump)] Omeprazole [PriLOSEC] 20 mg PO BID 01/31/17 03/16/21 History Timolol [Betimol 0.5% Ophth Soln] 1 drop RIGHT EYE BID 01/31/17 03/16/21 History Furosemide [Lasix] 80 mg PO BID 10/01/20 03/16/21 History Pregabalin [Lyrica] 200 mg PO TID 10/01/20 03/16/21 History oxyCODONE-APAP 10-325MG [Percocet 1 tab PO Q6H 10/01/20 03/16/21 History 10-325 mg] Heparin Sodium,Porcine [Heparin 64,000 units MISCELLANE MOTUWEFRSA 03/16/21 03/16/21 History Sodium] Metoclopramide [Reglan] 5 mg PO TID-W/MEALS 03/16/21 03/16/21 History Midodrine HCl [ProAmatine] 10 mg PO TID 03/16/21 03/16/21 History Ondansetron HCl [Zofran] 4 mg PO BID 03/16/21 03/16/21 History Apixaban [Eliquis] 5 mg PO BID 04/07/21 04/07/21 History Allergies Allergy/AdvReac Type Severity Reaction Status Date / Time No Known Allergies Allergy Verified 04/07/21 12:30 Physical Exam Vitals: Vital Signs Temp Pulse Resp BP Pulse Ox 04/07/21 12:45 98.6 F 86 18 105/79 94 L 04/07/21 12:18 86 18 105/79 94 L 04/07/21 11:10 90 20 98/58 96 04/07/21 09:43 98.6 F 103 H 20 113/90 88 L Intake and Output 04/06/21 04/07/21 04/07/21 22:59 06:59 14:59 Other: Weight 98.883 kg General: The patient is awake and alert, in no distress Eye: there is normal conjunctiva bilaterally. Neck: The neck is supple, there is no JVD. Cardiovascular: Normal S1-S2, no S3-S4, no murmurs. Respiratory: Lungs clear to auscultation bilaterally Gastrointestinal: Abdomen is soft, nontender Musculoskeletal: There is right BKA Neurological:. Speech is normal. Skin: Skin is warm and dry Results CBC & Chem 7: 04/07/21 09:59 04/07/21 09:59 Labs: Abnormal Lab Results - Last 24 Hours (Table) 04/07/21 04/07/21 04/07/21 Range/Units 09:56 09:59 09:59 WBC 15.3 H (3.8-10.6) k/uL RBC 4.17 L (4.30-5.90) m/uL Hgb 12.3 L (13.0-17.5) gm/dL MCHC 30.3 L (31.0-37.0) g/dL RDW 18.5 H (11.5-15.5) % Neutrophils # 12.7 H (1.3-7.7) k/uL APTT (22.0-30.0) sec Sodium 133 L (137-145) mmol/L Chloride 96 L (98-107) mmol/L BUN 42 H (9-20) mg/dL Creatinine 7.97 H* (0.66-1.25) mg/dL Glucose 427 H (74-99) mg/dL POC Glucose (mg/dL) 426 H (75-99) mg/dL Calcium 8.1 L (8.4-10.2) mg/dL Alkaline Phosphatase 192 H (38-126) U/L 04/07/21 Range/Units 11:24 WBC (3.8-10.6) k/uL RBC (4.30-5.90) m/uL Hgb (13.0-17.5) gm/dL MCHC (31.0-37.0) g/dL RDW (11.5-15.5) % Neutrophils # (1.3-7.7) k/uL APTT 33.2 H (22.0-30.0) sec Sodium (137-145) mmol/L Chloride (98-107) mmol/L BUN (9-20) mg/dL Creatinine (0.66-1.25) mg/dL Glucose (74-99) mg/dL POC Glucose (mg/dL) (75-99) mg/dL Calcium (8.4-10.2) mg/dL Alkaline Phosphatase (38-126) U/L Assessment and Plan Assessment: This is a 46-year-old male with very complex past medical history noted below who presented to the emergency room with a syncopal episode. He should was evaluated in the ER and will be admitted to the hospital for further management of his medical problems noted below. 1. Syncope, may be attributed to dehydration. I would check orthostatic blood pressure. Continue home dose of midodrine. Start gentle IV fluid hydration with normal saline at 50 mL per hour. 2. Recently diagnosed bilateral PE status post EKOS during last admission. Repeat CT angiogram of the chest in the ER showed persistent bilateral PE with persistent right ventricular strain. I would obtain emitted echocardiogram to assess right ventricle. Vascular surgery consulted. Patient has been taking Eliquis at home as prescribed. He will be started on IV heparin for now and continue to monitor closely. 3. Acute on chronic hypoxic respiratory failure 4. End-stage renal disease on hemodialysis, nephrology consulted 5. Type 2 diabetes on insulin pump. We will continue to monitor blood glucose closely 6. History of right below-knee amputation 7. Morbid obesity Today, I reviewed his medication list and lab work results. Continue current regimen. Awaiting vascular surgery evaluation. Wean off O2 as tolerated for O2 sats greater than 90%.
[2021-04-07 13:59] LABS: Glucose,Whole Blood 209 mg/dL (75-99)
[2021-04-07] MEDS: PREGABALIN 100 MG CAP PO SCH ×2 (14:45→21:31)
[2021-04-07] MEDS: oxyCODONE-APAP 10-325MG 1 EACH TAB PO SCH ×2 (14:45→20:33)
[2021-04-07] MEDS: INSULIN LISPRO (For Pump) 100 UNIT/ML VIAL SQ-PUMP SCH (14:46)
--- NOTE | 2021-04-07 16:45 | P.GSCN ---
History of Present Illness Consult date: 04/07/21 History of present illness: Robert is a 46-year-old male with a complex past medical history including diabetes, end-stage renal disease on dialysis, obesity and recent bilateral PE with right heart strain status post thrombolytics who was discharged proximally 2 weeks ago. He reportedly had a syncopal event at home where is trying to get passed out. He has undergone his home dialysis as usual and fell acutely dehydrated yesterday after a long walk. At the time of his discharge last visit he was not discharged on any oxygen. Currently the patient overall feels much better in the hospital bed and has no obvious complaints Past Medical History Past Medical History: Diabetes Mellitus, Dialysis, GERD/Reflux, Hyperlipidemia, Pulmonary Embolus (PE), Renal Disease, Syncope Additional Past Medical History / Comment(s): See Dr Freed H&P, constipation, anemia, History of Any Multi-Drug Resistant Organisms: None Reported Additional Past Surgical History / Comment(s): tom cataract, peritoneal dialysis catheter rt side, ECOS 03/19/21 Past Anesthesia/Blood Transfusion Reactions: No Reported Reaction Past Psychological History: Anxiety Smoking Status: Never smoker Past Alcohol Use History: None Reported Past Drug Use History: None Reported - Past Family History Mother Family Medical History: Cancer Father Family Medical History: Dementia Medications and Allergies Home Medications Medication Instructions Recorded Confirmed Type Atorvastatin [Lipitor] 40 mg PO HS 01/31/17 04/07/21 History Cyclobenzaprine [Flexeril] 5 mg PO TID 01/31/17 04/07/21 History Dialyvite 1 tab PO DAILY 01/31/17 04/07/21 History Ergocalciferol [Vitamin D2 50,000 unit PO Q14D 01/31/17 04/07/21 History (ERNESTINE)] INSULIN LISPRO (For Pump) [humaLOG 0.01 units SQ-PUMP CONTINUOUS 01/31/17 History (For Pump)] Omeprazole [PriLOSEC] 20 mg PO BID 01/31/17 04/07/21 History Timolol [Betimol 0.5% Ophth Soln] 1 drop RIGHT EYE BID 01/31/17 04/07/21 History Furosemide [Lasix] 80 mg PO BID 10/01/20 04/07/21 History Pregabalin [Lyrica] 200 mg PO TID 10/01/20 04/07/21 History oxyCODONE-APAP 10-325MG [Percocet 1 tab PO Q6H 10/01/20 04/07/21 History 10-325 mg] Heparin Sodium,Porcine [Heparin 64,000 units MISCELLANE MOTUWEFRSA 03/16/21 04/07/21 History Sodium] Metoclopramide [Reglan] 5 mg PO TID-W/MEALS 03/16/21 04/07/21 History Midodrine HCl [ProAmatine] 10 mg PO TID 03/16/21 04/07/21 History Ondansetron HCl [Zofran] 4 mg PO BID 03/16/21 04/07/21 History Apixaban [Eliquis] 5 mg PO BID 04/07/21 04/07/21 History Allergies Allergy/AdvReac Type Severity Reaction Status Date / Time No Known Allergies Allergy Verified 04/07/21 12:30 Surgical - Exam Vital Signs Temp Pulse Resp BP Pulse Ox 98.6 F 103 H 20 113/90 88 L 04/07/21 09:43 04/07/21 09:43 04/07/21 09:43 04/07/21 09:43 04/07/21 09:43 Gen. is a pleasant cooperative male in no acute distress HEENT is normocephalic, atraumatic. Anicteric emotion intact. Heart appears regular at this time. Lungs are clear although decreased breath sounds. Abdomen soft, obese, nontender nondistended. Right lower extremity amputation. Left upper extremity fistula nonfunctional. Neuro cranial nerves II through XII grossly intact Results CT of the chest is reviewed. Agree there is still significant clot burden although no obvious evidence of right heart strain - Labs 04/07/21 09:59 04/07/21 09:59 Abnormal Lab Results - Last 24 Hours (Table) 04/07/21 04/07/21 04/07/21 Range/Units 09:56 09:59 09:59 WBC 15.3 H (3.8-10.6) k/uL RBC 4.17 L (4.30-5.90) m/uL Hgb 12.3 L (13.0-17.5) gm/dL MCHC 30.3 L (31.0-37.0) g/dL RDW 18.5 H (11.5-15.5) % Neutrophils # 12.7 H (1.3-7.7) k/uL APTT (22.0-30.0) sec Sodium 133 L (137-145) mmol/L Chloride 96 L (98-107) mmol/L BUN 42 H (9-20) mg/dL Creatinine 7.97 H* (0.66-1.25) mg/dL Glucose 427 H (74-99) mg/dL POC Glucose (mg/dL) 426 H (75-99) mg/dL Calcium 8.1 L (8.4-10.2) mg/dL Alkaline Phosphatase 192 H (38-126) U/L 04/07/21 04/07/21 04/07/21 Range/Units 11:24 12:50 13:58 WBC (3.8-10.6) k/uL RBC (4.30-5.90) m/uL Hgb (13.0-17.5) gm/dL MCHC (31.0-37.0) g/dL RDW (11.5-15.5) % Neutrophils # (1.3-7.7) k/uL APTT 33.2 H (22.0-30.0) sec Sodium (137-145) mmol/L Chloride (98-107) mmol/L BUN (9-20) mg/dL Creatinine (0.66-1.25) mg/dL Glucose (74-99) mg/dL POC Glucose (mg/dL) 192 H 209 H (75-99) mg/dL Calcium (8.4-10.2) mg/dL Alkaline Phosphatase (38-126) U/L Diabetes panel 04/07/21 Range/Units 09:59 Sodium 133 L (137-145) mmol/L Potassium 3.5 (3.5-5.1) mmol/L Chloride 96 L (98-107) mmol/L Carbon Dioxide 22 (22-30) mmol/L BUN 42 H (9-20) mg/dL Creatinine 7.97 H* (0.66-1.25) mg/dL Glucose 427 H (74-99) mg/dL Calcium 8.1 L (8.4-10.2) mg/dL AST 37 (17-59) U/L ALT 14 (4-49) U/L Alkaline Phosphatase 192 H (38-126) U/L Total Protein 7.1 (6.3-8.2) g/dL Albumin 4.1 (3.5-5.0) g/dL Calcium panel 04/07/21 Range/Units 09:59 Calcium 8.1 L (8.4-10.2) mg/dL Albumin 4.1 (3.5-5.0) g/dL Pituitary panel 04/07/21 Range/Units 09:59 Sodium 133 L (137-145) mmol/L Potassium 3.5 (3.5-5.1) mmol/L Chloride 96 L (98-107) mmol/L Carbon Dioxide 22 (22-30) mmol/L BUN 42 H (9-20) mg/dL Creatinine 7.97 H* (0.66-1.25) mg/dL Glucose 427 H (74-99) mg/dL Calcium 8.1 L (8.4-10.2) mg/dL Adrenal panel 04/07/21 Range/Units 09:59 Sodium 133 L (137-145) mmol/L Potassium 3.5 (3.5-5.1) mmol/L Chloride 96 L (98-107) mmol/L Carbon Dioxide 22 (22-30) mmol/L BUN 42 H (9-20) mg/dL Creatinine 7.97 H* (0.66-1.25) mg/dL Glucose 427 H (74-99) mg/dL Calcium 8.1 L (8.4-10.2) mg/dL Total Bilirubin 0.5 (0.2-1.3) mg/dL AST 37 (17-59) U/L ALT 14 (4-49) U/L Alkaline Phosphatase 192 H (38-126) U/L Total Protein 7.1 (6.3-8.2) g/dL Albumin 4.1 (3.5-5.0) g/dL Assessment and Plan Assessment: Bilateral pulmonary emboli redemonstrated End-stage renal disease on dialysis Previous right lower extremity amputation Obesity Plan: At this time given his recent thrombolytics, no current plan to undergo repeat thrombolysis. Patient appears to be doing relatively well and stable on 4 L. At this point would increase his activity as tolerated and perform home O2 testing, likely will need to be discharged on oxygen
[2021-04-07 17:01] LABS: Glucose,Whole Blood 164 mg/dL (75-99)
[2021-04-07] MEDS: MIDODRINE 5 MG TAB PO SCH (17:31)
[2021-04-07] MEDS: METOCLOPRAMIDE 5 MG TAB PO SCH (17:31)
[2021-04-07] MEDS: PANTOPRAZOLE 40 MG TABLET PO SCH (17:31)
[2021-04-07 20:13] LABS: Glucose,Whole Blood 214 mg/dL (75-99)
[2021-04-07] MEDS: FUROSEMIDE 80 MG TAB PO SCH (20:33)
[2021-04-07] MEDS: ATORVASTATIN 40 MG TAB PO SCH (20:33)
[2021-04-07 20:41] LABS: Glucose,Whole Blood 205 mg/dL (75-99)
[2021-04-07] MEDS: TIMOLOL 0.5% OPHTH DROPS 5 ML BTL RIGHT EYE SCH (21:31)
[2021-04-08] MEDS: oxyCODONE-APAP 10-325MG 1 EACH TAB PO SCH ×4 (02:06→20:38)
[2021-04-08 02:07] LABS: Glucose,Whole Blood 116 mg/dL (75-99)
[2021-04-08] MEDS: HEPARIN SOD,PORK IN 0.45% NACL 25,000 UNIT in 0.45% NACL 1 250ML.BAG IV SCH ×2 (02:09→16:40)
[2021-04-08] MEDS ORDERED: INSULIN ASPART (NovoLOG) 100 UNIT/ML VIAL SQ PRN (03:02)
[2021-04-08] MEDS ORDERED: INSPUCOR MISCELLANE PRN (03:02)
[2021-04-08] MEDS ORDERED: INSULIN PUMP BASAL RATES 1 EACH MISC MISCELLANE PRN (03:02)
[2021-04-08 04:05] LABS: Anisocytosis Slight; Basophils # (A) 0.1 k/uL (0-0.2); Basophils % (A) 1 %; Eosinophils # (A) 0.3 k/uL (0-0.7); Eosinophils % (A) 4 %; HCT 38.9 % (39.0-53.0); Hypochromasia Marked; Lymphocytes # (A) 2.1 k/uL (1.0-4.8); Lymphocytes % (A) 27 %; MCH 29.7 pg (25.0-35.0); MCHC 30.9 g/dL (31.0-37.0); Macrocytosis Slight; Mean Platelet Volume 11.2; Monocytes # (A) 0.5 k/uL (0-1.0); Monocytes % (A) 7 %; Neutrophils # (A) 4.6 k/uL (1.3-7.7); Neutrophils % (A) 59 %; Platelet Count 151 k/uL (150-450); Poikilocytosis Slight; RBC 4.05 m/uL (4.30-5.90); RDW 18.6 % (11.5-15.5); WBC 7.7 k/uL (3.8-10.6)
[2021-04-08 06:14] LABS: Glucose,Whole Blood 238 mg/dL (75-99)
[2021-04-08] MEDS: INSULIN PUMP MEAL BOLUS 1 UNIT MISC MISCELLANE SCH ×4 (06:25→20:37)
[2021-04-08] MEDS: METOCLOPRAMIDE 5 MG TAB PO SCH ×3 (06:26→16:40)
[2021-04-08] MEDS: PANTOPRAZOLE 40 MG TABLET PO SCH ×2 (06:26→16:40)
[2021-04-08] MEDS: MIDODRINE 5 MG TAB PO SCH ×3 (06:26→16:39)
[2021-04-08] MEDS: SODIUM CHLORIDE 0.9% 1,000 ML IV SCH (08:17)
[2021-04-08] MEDS: FUROSEMIDE 80 MG TAB PO SCH ×2 (08:17→20:38)
[2021-04-08] MEDS: TIMOLOL 0.5% OPHTH DROPS 5 ML BTL RIGHT EYE SCH ×2 (08:17→20:39)
[2021-04-08] MEDS: PREGABALIN 100 MG CAP PO SCH ×3 (08:17→20:38)
[2021-04-08 08:41] LABS: Glucose,Whole Blood 142 mg/dL (75-99)
--- NOTE | 2021-04-08 08:58 | P.NPCON ---
History of Present Illness - Reason for Consult end stage renal disease - History of Present Illness Reason for consultation: End-stage renal disease History of present illness: Patient is a 46-year-old male seen in consultation for end-stage renal disease. Patient is maintained on home hemodialysis. Last treatment was yesterday while in the hospital. Patient presented to the hospital with shortness of breath and 2 syncopal episodes which occurred yesterday. CTA revealed bilateral pulmonary emboli. He is currently on heparin drip. He denies chest pain. No vomiting or diarrhea. Currently having breakfast. No fever or chills. Blood pressure stable. Afebrile. No cough. He has been evaluated in vascular surgery and there is no plan for thrombolytics at this time. Currently on 4 L nasal cannula. Vital signs are stable. General: The patient appeared well nourished and normally developed. HEENT: Head exam is unremarkable. Neck is without jugular venous distension. LUNGS: Breath sounds decreased. HEART: Rate and Rhythm are regular. ABDOMEN: Soft, obese. EXTREMITITES: Right lower extremity amputation noted. Past Medical History Past Medical History: Diabetes Mellitus, Dialysis, GERD/Reflux, Hyperlipidemia, Pulmonary Embolus (PE), Renal Disease, Syncope Additional Past Medical History / Comment(s): See Dr Freed H&P, constipation, anemia, History of Any Multi-Drug Resistant Organisms: None Reported Additional Past Surgical History / Comment(s): tom cataract, peritoneal dialysis catheter rt side, ECOS 03/19/21 Past Anesthesia/Blood Transfusion Reactions: No Reported Reaction Past Psychological History: Anxiety Smoking Status: Never smoker Past Alcohol Use History: None Reported Past Drug Use History: None Reported - Past Family History Mother Family Medical History: Cancer Father Family Medical History: Dementia Medications and Allergies Home Medications Medication Instructions Recorded Confirmed Type Atorvastatin [Lipitor] 40 mg PO HS 01/31/17 04/07/21 History Cyclobenzaprine [Flexeril] 5 mg PO TID 01/31/17 04/07/21 History Dialyvite 1 tab PO DAILY 01/31/17 04/07/21 History Ergocalciferol [Vitamin D2 50,000 unit PO Q14D 01/31/17 04/07/21 History (DRISDOL)] INSULIN LISPRO (For Pump) [humaLOG 0.01 units SQ-PUMP CONTINUOUS 01/31/17 04/07/21 History (For Pump)] Omeprazole [PriLOSEC] 20 mg PO BID 01/31/17 04/07/21 History Timolol [Betimol 0.5% Ophth Soln] 1 drop RIGHT EYE BID 01/31/17 04/07/21 History Furosemide [Lasix] 80 mg PO BID 10/01/20 04/07/21 History Pregabalin [Lyrica] 200 mg PO TID 10/01/20 04/07/21 History oxyCODONE-APAP 10-325MG [Percocet 1 tab PO Q6H 10/01/20 04/07/21 History 10-325 mg] Heparin Sodium,Porcine [Heparin 64,000 units MISCELLANE MOTUWEFRSA 03/16/21 04/07/21 History Sodium] Metoclopramide [Reglan] 5 mg PO TID-W/MEALS 03/16/21 04/07/21 History Midodrine HCl [ProAmatine] 10 mg PO TID 03/16/21 04/07/21 History Ondansetron HCl [Zofran] 4 mg PO BID 03/16/21 04/07/21 History Apixaban [Eliquis] 5 mg PO BID 04/07/21 04/07/21 History Allergies Allergy/AdvReac Type Severity Reaction Status Date / Time No Known Allergies Allergy Verified 04/07/21 12:30 Physical Exam Vitals: Vital Signs Temp Pulse Pulse Resp BP BP BP 04/08/21 08:14 98.0 F 73 16 116/76 04/08/21 04:00 98.4 F 87 18 118/76 04/07/21 23:35 98.1 F 75 18 92/61 04/07/21 20:00 98.0 F 88 18 138/94 04/07/21 17:46 95 18 121/91 04/07/21 14:15 91 18 127/85 125/80 04/07/21 13:15 91 18 04/07/21 13:00 97.5 F L 75 18 110/68 04/07/21 12:45 98.6 F 86 18 105/79 04/07/21 12:18 86 18 105/79 04/07/21 11:51 97.8 F 75 18 110/68 04/07/21 11:10 90 20 98/58 04/07/21 09:43 98.6 F 103 H 20 113/90 Pulse Ox 04/08/21 08:14 97 04/08/21 04:00 95 04/07/21 23:35 95 04/07/21 20:00 96 04/07/21 17:46 04/07/21 14:15 98 04/07/21 13:15 04/07/21 13:00 95 04/07/21 12:45 94 L 04/07/21 12:18 94 L 04/07/21 11:51 95 04/07/21 11:10 96 04/07/21 09:43 88 L Intake and Output 04/07/21 04/08/21 04/08/21 22:59 06:59 14:59 Intake Total 401.081 96.655 Output Total 1999 100 Balance -1598.919 -3.345 Intake: Intake, IV Titration 161.081 96.655 Amount Heparin Sod,Pork in 0.45% 161.081 96.655 NaCl 25,000 unit In 0.45 % NaCl 1 250ml.bag @ 18 UNITS/KG/HR 17.799 mls/hr IV .Q14H3M [facility] Rx#: [id number] Oral 240 Output: Urine 100 Hemodialysis 1999 Other: Voiding Method Urinal Urinal Weight 98.5 kg Results - Lab Results Most recent lab results Calcium 8.1 mg/dL (8.4-10.2) L 04/07/21 09:59 Magnesium 1.7 mg/dL (1.6-2.3) 04/07/21 09:59 04/08/21 03:34 04/07/21 09:59 Assessment and Plan Plan: Assessment: 1. End-stage renal disease maintained on home hemodialysis. Has a permacath. 2. Pulmonary embolus maintained on heparin drip. Vascular surgery following. No plans for thrombolytics at this time. 3. Chronic hypotension maintained on midodrine. 4. Diabetes mellitus. 5. Hypertonic hyponatremia secondary to hyperglycemia. Plan: Hemodialysis tomorrow. He will be maintained on a Friday schedule while in the hospital. Hep-Lock IV fluids. Thank you for the consultation. I will continue to follow the patient with you during his hospital stay.
--- NOTE | 2021-04-08 08:59 | ECHOF ---
Referral Reason:Assess for right ventricular strain MEASUREMENTS -------- HEIGHT: 154.9 cm WEIGHT: 98.9 kg BP: 105/79 RVIDd: 5.1 cm (< 3.3) IVSd: 1.1 cm (0.6 - 1.1) LVIDd: 4.0 cm (3.9 - 5.3) LVPWd: 1.2 cm (0.6 - 1.1) IVSs: 1.6 cm LVIDs: 2.3 cm LVPWs: 1.6 cm RAP: 5.00 mmHg RVSP: 63.09 mmHg TAPSE: 21.75 mm FINDINGS -------- Sinus rhythm. Limited Study The left ventricular size is normal. Left ventricular wall thickness is normal. Overall left vent ricular systolic function is normal with, an EF between 55 - 60 %. The right ventricle is severely enlarged. The right ventricular systolic function is severely impai red. Paradoxical motion of the right ventricular septum is consistent with right ventricular overlo ad and/or elevated right ventricular end-diastolic pressure. There is no pericardial effusion. CONCLUSIONS -------- 1. The left ventricular size is normal. 2. Left ventricular wall thickness is normal. 3. Overall left ventricular systolic function is normal with, an EF between 55 - 60 %. 4. The right ventricle is severely enlarged. 5. The right ventricular systolic function is severely impaired. 6. Paradoxical motion of the right ventricular septum is consistent with right ventricular overload a nd/or elevated right ventricular end-diastolic pressure. BUDGET RECORD CLERK: Catie Dwyer RDCS
--- NOTE | 2021-04-08 09:19 | P.PN ---
Subjective Progress Note Date: 04/08/21 Patient seen and examined. Overall he states he is feeling better and his breathing is improved. After discussion he does state that prior to his episode of passing out, he had been going on for a long walk and pushing himself exertionally. He then underwent his dialysis for he felt dizzy and "passed out" Objective - Vital Signs Vital signs: Vital Signs Temp 98.0 F 04/08/21 08:14 Pulse 73 04/08/21 08:14 Resp 16 04/08/21 08:14 BP 116/76 04/08/21 08:14 Pulse Ox 97 04/08/21 08:14 Intake & Output 04/07/21 04/08/21 04/08/21 18:59 06:59 18:59 Intake Total 480 257.736 Output Total 1999 100 Balance -1520 157.736 Weight 98.883 kg 98.5 kg Intake: Intake, IV Titration 257.736 Amount Heparin Sod,Pork in 0.45% 257.736 NaCl 25,000 unit In 0.45 % NaCl 1 250ml.bag @ 18 UNITS/KG/HR 17.799 mls/hr IV .Q14H3M [facility] Rx#: [id number] Oral 480 Output: Urine 100 Hemodialysis 2000 Other: Voiding Method Urinal - Exam Genitals a pleasant cooperative obese male in no acute distress. HEENT is normal cephalic, atraumatic, etc. he motion intact. Heart appears regular at this time. Lungs are clear bilaterally. Abdomen soft, nontender and nondistended. Extremities no clubbing, cyanosis or edema. Right lower extremity amputation. - Labs CBC & Chem 7: 04/08/21 03:34 04/07/21 09:59 Labs: Abnormal Lab Results - Last 24 Hours (Table) 04/07/21 04/07/21 04/07/21 Range/Units 09:56 09:59 09:59 WBC 15.3 H (3.8-10.6) k/uL RBC 4.17 L (4.30-5.90) m/uL Hgb 12.3 L (13.0-17.5) gm/dL Hct (39.0-53.0) % MCHC 30.3 L (31.0-37.0) g/dL RDW 18.5 H (11.5-15.5) % Neutrophils # 12.7 H (1.3-7.7) k/uL APTT (22.0-30.0) sec Sodium 133 L (137-145) mmol/L Chloride 96 L (98-107) mmol/L BUN 42 H (9-20) mg/dL Creatinine 7.97 H* (0.66-1.25) mg/dL Glucose 427 H (74-99) mg/dL POC Glucose (mg/dL) 426 H (75-99) mg/dL Calcium 8.1 L (8.4-10.2) mg/dL Alkaline Phosphatase 192 H (38-126) U/L 04/07/21 04/07/21 04/07/21 Range/Units 11:24 12:50 13:58 WBC (3.8-10.6) k/uL RBC (4.30-5.90) m/uL Hgb (13.0-17.5) gm/dL Hct (39.0-53.0) % MCHC (31.0-37.0) g/dL RDW (11.5-15.5) % Neutrophils # (1.3-7.7) k/uL APTT 33.2 H (22.0-30.0) sec Sodium (137-145) mmol/L Chloride (98-107) mmol/L BUN (9-20) mg/dL Creatinine (0.66-1.25) mg/dL Glucose (74-99) mg/dL POC Glucose (mg/dL) 192 H 209 H (75-99) mg/dL Calcium (8.4-10.2) mg/dL Alkaline Phosphatase (38-126) U/L 04/07/21 04/07/21 04/07/21 Range/Units 16:59 19:16 20:12 WBC (3.8-10.6) k/uL RBC (4.30-5.90) m/uL Hgb (13.0-17.5) gm/dL Hct (39.0-53.0) % MCHC (31.0-37.0) g/dL RDW (11.5-15.5) % Neutrophils # (1.3-7.7) k/uL APTT >200.0 H* (22.0-30.0) sec Sodium (137-145) mmol/L Chloride (98-107) mmol/L BUN (9-20) mg/dL Creatinine (0.66-1.25) mg/dL Glucose (74-99) mg/dL POC Glucose (mg/dL) 164 H 214 H (75-99) mg/dL Calcium (8.4-10.2) mg/dL Alkaline Phosphatase (38-126) U/L 04/07/21 04/08/21 04/08/21 Range/Units 20:40 02:05 03:33 WBC (3.8-10.6) k/uL RBC (4.30-5.90) m/uL Hgb (13.0-17.5) gm/dL Hct (39.0-53.0) % MCHC (31.0-37.0) g/dL RDW (11.5-15.5) % Neutrophils # (1.3-7.7) k/uL APTT 67.9 H (22.0-30.0) sec Sodium (137-145) mmol/L Chloride (98-107) mmol/L BUN (9-20) mg/dL Creatinine (0.66-1.25) mg/dL Glucose (74-99) mg/dL POC Glucose (mg/dL) 205 H 116 H (75-99) mg/dL Calcium (8.4-10.2) mg/dL Alkaline Phosphatase (38-126) U/L 04/08/21 04/08/21 04/08/21 Range/Units 03:34 06:12 08:39 WBC (3.8-10.6) k/uL RBC 4.05 L (4.30-5.90) m/uL Hgb 12.0 L (13.0-17.5) gm/dL Hct 38.9 L (39.0-53.0) % MCHC 30.9 L (31.0-37.0) g/dL RDW 18.6 H (11.5-15.5) % Neutrophils # (1.3-7.7) k/uL APTT (22.0-30.0) sec Sodium (137-145) mmol/L Chloride (98-107) mmol/L BUN (9-20) mg/dL Creatinine (0.66-1.25) mg/dL Glucose (74-99) mg/dL POC Glucose (mg/dL) 238 H 142 H (75-99) mg/dL Calcium (8.4-10.2) mg/dL Alkaline Phosphatase (38-126) U/L Assessment and Plan Assessment: Bilateral pulmonary emboli redemonstrated End-stage renal disease on dialysis Previous right lower extremity amputation Obesity Plan: Overall patient appears to be improving. Increase his activity and would perform home O2 evaluation was discussed that he likely would need to go home with oxygen at this point. From vascular standpoint no further intervention is planned. Continue oral anticoagulation as previously ordered.
[2021-04-08 11:51] LABS: Glucose,Whole Blood 142 mg/dL (75-99)
--- NOTE | 2021-04-08 12:59 | P.PN ---
Subjective Progress Note Date: 04/08/21 Patient is feeling fairly well today. He denies dizziness or lightheadedness. He was on 4 L of oxygen when I saw him satting 97%. I was able to wean him off to room air with O2 sat maintaining around 94-95%. Patient denies any shortness of breath or chest pain. Objective - Vital Signs Vital signs: Vital Signs Temp 98.2 F 04/08/21 12:07 Pulse 76 04/08/21 12:07 Resp 18 04/08/21 12:07 BP 120/76 04/08/21 12:07 Pulse Ox 95 04/08/21 12:07 Intake & Output 04/07/21 04/08/21 04/08/21 18:59 06:59 18:59 Intake Total 480 257.736 480 Output Total 2000 100 Balance -1520 157.736 480 Weight 98.883 kg 98.5 kg Intake: Intake, IV Titration 257.736 Amount Heparin Sod,Pork in 0.45% 257.736 NaCl 25,000 unit In 0.45 % NaCl 1 250ml.bag @ 18 UNITS/KG/HR 17.799 mls/hr IV .Q14H3M [facility] Rx#: [id number] Oral 480 480 Output: Urine 100 Hemodialysis 2000 Other: Voiding Method Urinal Urinal - Exam General: The patient is awake and alert, in no distress Eye: there is normal conjunctiva bilaterally. Neck: The neck is supple, there is no JVD. Cardiovascular: Normal S1-S2, no S3-S4, no murmurs. Respiratory: Lungs clear to auscultation bilaterally Gastrointestinal: Abdomen is soft, nontender Musculoskeletal: There is no pedal edema. There is a right BKA Neurological:. Speech is normal. Skin: Skin is warm and dry - Labs CBC & Chem 7: 04/08/21 03:34 04/07/21 09:59 Labs: Abnormal Lab Results - Last 24 Hours (Table) 04/07/21 04/07/21 04/07/21 Range/Units 13:58 16:59 19:16 RBC (4.30-5.90) m/uL Hgb (13.0-17.5) gm/dL Hct (39.0-53.0) % MCHC (31.0-37.0) g/dL RDW (11.5-15.5) % APTT >200.0 H* (22.0-30.0) sec POC Glucose (mg/dL) 209 H 164 H (75-99) mg/dL 04/07/21 04/07/21 04/08/21 Range/Units 20:12 20:40 02:05 RBC (4.30-5.90) m/uL Hgb (13.0-17.5) gm/dL Hct (39.0-53.0) % MCHC (31.0-37.0) g/dL RDW (11.5-15.5) % APTT (22.0-30.0) sec POC Glucose (mg/dL) 214 H 205 H 116 H (75-99) mg/dL 04/08/21 04/08/21 04/08/21 Range/Units 03:33 03:34 06:12 RBC 4.05 L (4.30-5.90) m/uL Hgb 12.0 L (13.0-17.5) gm/dL Hct 38.9 L (39.0-53.0) % MCHC 30.9 L (31.0-37.0) g/dL RDW 18.6 H (11.5-15.5) % APTT 67.9 H (22.0-30.0) sec POC Glucose (mg/dL) 238 H (75-99) mg/dL 04/08/21 04/08/21 04/08/21 Range/Units 08:39 10:46 11:49 RBC (4.30-5.90) m/uL Hgb (13.0-17.5) gm/dL Hct (39.0-53.0) % MCHC (31.0-37.0) g/dL RDW (11.5-15.5) % APTT 60.3 H (22.0-30.0) sec POC Glucose (mg/dL) 142 H 142 H (75-99) mg/dL Assessment and Plan Assessment: This is a 46-year-old male with very complex past medical history noted below who presented to the emergency room with a syncopal episode. He should was evaluated in the ER and will be admitted to the hospital for further management of his medical problems noted below. 1. Syncope, may be attributed to dehydration. Patient received some IV fluid hydration on presentation. Orthostatic blood pressure negative lying to sitting. Continue home dose of midodrine. Patient was counseled extensively to get up slowly out of bed and could not stand up abruptly. 2. Recently diagnosed bilateral PE status post EKOS during last admission. Repeat CT angiogram of the chest in the ER showed persistent bilateral PE with persistent right ventricular strain. I would obtain a limited echocardiogram to assess right ventricle. Vascular surgery consulted. Patient has been taking Eliquis at home as prescribed. Currently on IV heparin during this hospital stay 3. Acute on chronic hypoxic respiratory failure 4. End-stage renal disease on hemodialysis, nephrology consulted 5. Type 2 diabetes on insulin pump. We will continue to monitor blood glucose closely 6. History of right below-knee amputation 7. Morbid obesity Today, I reviewed his medication list and lab work results. Continue current regimen. Discussed with nursing staff to get patient out of bed and ambulate using his prosthesis
[2021-04-08 13:23] LABS: Glucose,Whole Blood 116 mg/dL (75-99)
[2021-04-08] MEDS: INSULIN LISPRO (For Pump) 100 UNIT/ML VIAL SQ-PUMP SCH (14:19)
[2021-04-08 16:45] LABS: Glucose,Whole Blood 222 mg/dL (75-99)
[2021-04-08 17:43] LABS: Glucose,Whole Blood 245 mg/dL (75-99)
[2021-04-08 20:16] LABS: Glucose,Whole Blood 216 mg/dL (75-99)
[2021-04-08] MEDS: ATORVASTATIN 40 MG TAB PO SCH (20:38)
[2021-04-08 22:51] LABS: Hemoglobin A1C 10.1 % (4.0-6.0)
[2021-04-09 00:08] LABS: Glucose,Whole Blood 192 mg/dL (75-99)
[2021-04-09] MEDS: INSULIN PUMP MEAL BOLUS 1 UNIT MISC MISCELLANE SCH ×3 (00:16→12:35)
[2021-04-09 02:17] LABS: Glucose,Whole Blood 174 mg/dL (75-99)
[2021-04-09] MEDS: oxyCODONE-APAP 10-325MG 1 EACH TAB PO SCH ×2 (03:36→08:44)
[2021-04-09 06:07] LABS: Glucose,Whole Blood 185 mg/dL (75-99)
[2021-04-09] MEDS: PANTOPRAZOLE 40 MG TABLET PO SCH (06:23)
[2021-04-09] MEDS: METOCLOPRAMIDE 5 MG TAB PO SCH ×2 (06:23→12:31)
[2021-04-09] MEDS: MIDODRINE 5 MG TAB PO SCH ×2 (06:23→12:30)
[2021-04-09] MEDS: HEPARIN SOD,PORK IN 0.45% NACL 25,000 UNIT in 0.45% NACL 1 250ML.BAG IV SCH (06:51)
[2021-04-09 08:09] LABS: Glucose,Whole Blood 173 mg/dL (75-99)
[2021-04-09] MEDS: PREGABALIN 100 MG CAP PO SCH (08:43)
[2021-04-09] MEDS: TIMOLOL 0.5% OPHTH DROPS 5 ML BTL RIGHT EYE SCH (08:45)
[2021-04-09] MEDS: FUROSEMIDE 80 MG TAB PO SCH (08:45)
[2021-04-09 08:53] VITALS: RESP 18
--- NOTE | 2021-04-09 09:10 | P.PN ---
Subjective Patient is seen in follow-up for end-stage renal disease. Currently on 2 L nasal cannula. Blood pressure stable. Oral intake fair. Vital signs are stable. General: The patient appeared well nourished and normally developed. HEENT: Head exam is unremarkable. On nasal cannula. LUNGS: Breath sounds decreased. HEART: Rate and Rhythm are regular. ABDOMEN: Soft, obese. No distention. EXTREMITITES: BKA noted. Trace edema. Objective - Vital Signs Vital signs: Vital Signs Temp 97.7 F 04/09/21 08:45 Pulse 84 04/09/21 08:45 Resp 18 04/09/21 08:45 BP 104/67 04/09/21 08:45 Pulse Ox 94 L 04/09/21 08:45 Intake & Output 04/08/21 04/09/21 04/09/21 18:59 06:59 18:59 Intake Total 1592.975 Output Total 75 100 Balance 1517.975 -100 Weight 98.5 kg Intake: Intake, IV Titration 152.975 Amount Heparin Sod,Pork in 0.45% 152.975 NaCl 25,000 unit In 0.45 % NaCl 1 250ml.bag @ 18 UNITS/KG/HR 17.799 mls/hr IV .Q14H3M [facility] Rx#: [id number] Oral 1440 Output: Urine 75 100 Other: Voiding Method Urinal Urinal # Voids 0 - Labs CBC & Chem 7: 04/08/21 03:34 04/07/21 09:59 Labs: Abnormal Lab Results - Last 24 Hours (Table) 04/08/21 04/08/21 04/08/21 Range/Units 03:34 10:46 11:49 APTT 60.3 H (22.0-30.0) sec POC Glucose (mg/dL) 142 H (75-99) mg/dL Hemoglobin A1c 10.1 H (4.0-6.0) % 04/08/21 04/08/21 04/08/21 Range/Units 13:22 16:43 17:42 APTT (22.0-30.0) sec POC Glucose (mg/dL) 116 H 222 H 245 H (75-99) mg/dL Hemoglobin A1c (4.0-6.0) % 04/08/21 04/09/21 04/09/21 Range/Units 20:14 00:07 02:15 APTT (22.0-30.0) sec POC Glucose (mg/dL) 216 H 192 H 174 H (75-99) mg/dL Hemoglobin A1c (4.0-6.0) % 04/09/21 04/09/21 Range/Units 06:06 08:08 APTT (22.0-30.0) sec POC Glucose (mg/dL) 185 H 173 H (75-99) mg/dL Hemoglobin A1c (4.0-6.0) % Assessment and Plan Plan: Assessment: 1. End-stage renal disease maintained on home hemodialysis. Has a permacath. 2. Pulmonary embolus maintained on heparin drip. Vascular surgery following. No plans for thrombolytics at this time. On anticoagulation. 3. Chronic hypotension maintained on midodrine. 4. Diabetes mellitus. 5. Hypertonic hyponatremia secondary to hyperglycemia. Blood sugar 173 this morning. Plan: Hemodialysis today.
[2021-04-09] MEDS ORDERED: APIXABAN 5 MG TAB PO SCH (11:00)
--- NOTE | 2021-04-09 11:17 | P.PN ---
Subjective Progress Note Date: 04/09/21 Principal diagnosis: Bilateral Pulmonary embolism Patient is seen and examined lying in bed resting. His oxygen saturation is 94- 99% on 2 L of nasal cannula. He states his shortness of breath has improved significantly. He is scheduled today for his hemodialysis. No acute changes through the night, patient has been afebrile. Objective - Vital Signs Vital signs: Vital Signs Temp 97.7 F 04/09/21 08:45 Pulse 84 04/09/21 08:45 Resp 18 04/09/21 08:45 BP 104/67 04/09/21 08:45 Pulse Ox 94 L 04/09/21 08:45 Intake & Output 04/08/21 04/09/21 04/09/21 18:59 06:59 18:59 Intake Total 1592.975 240 Output Total 75 100 Balance 1517.975 -100 240 Weight 98.5 kg Intake: Intake, IV Titration 152.975 Amount Heparin Sod,Pork in 0.45% 152.975 NaCl 25,000 unit In 0.45 % NaCl 1 250ml.bag @ 18 UNITS/KG/HR 17.799 mls/hr IV .Q14H3M [facility] Rx#: [id number] Oral 1440 240 Output: Urine 75 100 Other: Voiding Method Urinal Urinal # Voids 0 - Exam General appearance: The patient is alert, oriented, appears in no acute distress. HET: Head is normocephalic and atraumatic. Neck: Supple without lymphadenopathy. Trachea midline. Heart: S1 S2. Regular rate and rhythm. Lungs: Clear to auscultation, chest expansion normal, breathing nonlabored. Abdomen: Soft, nontender, nondistended. Extremities: Right lower extremity below the knee amputation. Neurological: No focal deficits. Strength and sensation are grossly intact. - Labs CBC & Chem 7: 04/08/21 03:34 04/07/21 09:59 Labs: Abnormal Lab Results - Last 24 Hours (Table) 04/08/21 04/08/21 04/08/21 Range/Units 03:34 10:46 11:49 APTT 60.3 H (22.0-30.0) sec POC Glucose (mg/dL) 142 H (75-99) mg/dL Hemoglobin A1c 10.1 H (4.0-6.0) % 04/08/21 04/08/21 04/08/21 Range/Units 13:22 16:43 17:42 APTT (22.0-30.0) sec POC Glucose (mg/dL) 116 H 222 H 245 H (75-99) mg/dL Hemoglobin A1c (4.0-6.0) % 04/08/21 04/09/21 04/09/21 Range/Units 20:14 00:07 02:15 APTT (22.0-30.0) sec POC Glucose (mg/dL) 216 H 192 H 174 H (75-99) mg/dL Hemoglobin A1c (4.0-6.0) % 04/09/21 04/09/21 04/09/21 Range/Units 06:06 08:08 08:35 APTT 32.3 H (22.0-30.0) sec POC Glucose (mg/dL) 185 H 173 H (75-99) mg/dL Hemoglobin A1c (4.0-6.0) % Assessment and Plan Assessment: 1. Bilateral pulmonary embolism, redemonstrated 2. End stage renal disease on hemodialysis 3. Previous history of right below the knee amputation 4. Obesity Plan: 1. May discontinue heparin drip and restart Eliquis 2. Recommend home oxygen evaluation, patient likely to require home oxygenation 3. No further vascular surgical intervention required, patient may be discharged home from a vascular surgical standpoint once otherwise medically stable Thank you for this consultation, we will sign off at this time The impression and plan of care has been dictated as directed. Dr. Pereira I performed a history and examination of this patient, discussed the same with the dictator. I agree with the dictator's note ,documented as a scribe. Any additional findings or plans will be noted.
[2021-04-09 11:58] VITALS: TEMP 97.4
[2021-04-09 12:02] VITALS: PULSE 79
[2021-04-09 12:34] LABS: Glucose,Whole Blood 411 mg/dL (75-99)
[2021-04-09 12:42] VITALS: BP 141/87
--- NOTE | 2021-04-09 13:31 | P.DS ---
Providers Date of admission: 04/07/21 11:29 Expected date of discharge: 04/09/21 Attending physician: Richelle Fernandez Consults: 04/07/21 11:29 Consult Physician Urgent Consulting Provider: Oumou Pereira Consult Reason/Comments: PE Do you want consulting provider notified?: Already Contacted 04/07/21 11:30 Consult Physician Routine Consulting Provider: Jinny Cope Consult Reason/Comments: ESRD Do you want consulting provider notified?: Yes Primary care physician: Baldev Ayers MD Hospital Course: This is a 46-year-old male with very complex past medical history noted below who presented to the emergency room with a syncopal episode. He should was evaluated in the ER and will be admitted to the hospital for further management of his medical problems noted below. 1. Syncope, may be attributed to dehydration. Patient received some IV fluid hydration on presentation. Orthostatic blood pressure negative lying to sitting. Continue home dose of midodrine. Patient was counseled extensively to get up slowly out of bed and could not stand up abruptly. 2. Recently diagnosed bilateral PE status post EKOS during last admission. Repeat CT angiogram of the chest in the ER showed persistent bilateral PE with persistent right ventricular strain. Repeat echocardiogram showed the same. Vascular surgery consulted. No further recommendations for procedure plan at this time. He should was placed on IV heparin during this hospitalization and will be switched back to home dose of Eliquis upon discharge 3. Acute on chronic hypoxic respiratory failure: Patient will be set up for home O2 4. End-stage renal disease on hemodialysis, nephrology consulted 5. Type 2 diabetes on insulin pump. We will continue to monitor blood glucose closely 6. History of right below-knee amputation 7. Morbid obesity Patient Condition at Discharge: Fair Plan - Discharge Summary Discharge Rx Participant: No New Discharge Prescriptions: Continue Ergocalciferol [Vitamin D2 (DRISDOL)] 50,000 unit PO Q14D Atorvastatin [Lipitor] 40 mg PO HS Dialyvite 1 tab PO DAILY Timolol [Betimol 0.5% Ophth Soln] 1 drop RIGHT EYE BID Omeprazole [PriLOSEC] 20 mg PO BID INSULIN LISPRO (For Pump) [humaLOG (For Pump)] 0.01 units SQ-PUMP CONTINUOUS Furosemide [Lasix] 80 mg PO BID oxyCODONE-APAP 10-325MG [Percocet 10-325 mg] 1 tab PO Q6H Pregabalin [Lyrica] 200 mg PO TID Ondansetron HCl [Zofran] 4 mg PO BID Midodrine HCl [ProAmatine] 10 mg PO TID Metoclopramide [Reglan] 5 mg PO TID-W/MEALS Heparin Sodium,Porcine [Heparin Sodium] 64,000 units MISCELLANE MOTUWEFRSA Apixaban [Eliquis] 5 mg PO BID Discontinued Cyclobenzaprine [Flexeril] 5 mg PO TID Discharge Medication List Atorvastatin [Lipitor] 40 mg PO HS 01/31/17 [History] Dialyvite 1 tab PO DAILY 01/31/17 [History] Ergocalciferol [Vitamin D2 (DRISDOL)] 50,000 unit PO Q14D 01/31/17 [History] INSULIN LISPRO (For Pump) [humaLOG (For Pump)] 0.01 units SQ-PUMP CONTINUOUS 01/31/17 [History] Omeprazole [PriLOSEC] 20 mg PO BID 01/31/17 [History] Timolol [Betimol 0.5% Ophth Soln] 1 drop RIGHT EYE BID 01/31/17 [History] Furosemide [Lasix] 80 mg PO BID 10/01/20 [History] Pregabalin [Lyrica] 200 mg PO TID 10/01/20 [History] oxyCODONE-APAP 10-325MG [Percocet 10-325 mg] 1 tab PO Q6H 10/01/20 [History] Heparin Sodium,Porcine [Heparin Sodium] 64,000 units MISCELLANE MOTUWEFRSA 03/16/21 [History] Metoclopramide [Reglan] 5 mg PO TID-W/MEALS 03/16/21 [History] Midodrine HCl [ProAmatine] 10 mg PO TID 03/16/21 [History] Ondansetron HCl [Zofran] 4 mg PO BID 03/16/21 [History] Apixaban [Eliquis] 5 mg PO BID 04/07/21 [History] Follow up Appointment(s)/Referral(s): [facility] [NON-STAFF] - [facility] [NON-STAFF] - Baldev Ayers MD [Primary Care Provider] - 1-2 days Activity/Diet/Wound Care/Special Instructions: Discharge Disposition: HOME SELF-CARE
[2021-04-09 15:12] VITALS: BMI 41.0
== END 2021-04-09 15:28 | disposition home or self-care (01) | DRG 175 ==
LOC: EC 09:40 → 3SCARD 11:29
PROVIDERS: ADMIT Internal Medicine; ATTEND Internal Medicine
PROC: 5A1D70Z Performance of Urinary Filtration, Intermittent, Less than 6 Hours Per Day (ICD-10-PCS; principal; 2021-04-07)
DX: I26.99 Other pulmonary embolism without acute cor pulmonale (principal); N18.6 End stage renal disease; J96.21 Acute and chronic respiratory failure with hypoxia; Z68.41 Body mass index [BMI] 40.0-44.9, adult; E87.1 Hypo-osmolality and hyponatremia; E86.0 Dehydration; R55 Syncope and collapse; Z86.711 Personal history of pulmonary embolism; E11.22 Type 2 diabetes mellitus with diabetic chronic kidney disease; Z89.511 Acquired absence of right leg below knee; Z20.822 Contact with and (suspected) exposure to COVID-19; Z79.4 Long term (current) use of insulin; Z96.41 Presence of insulin pump (external) (internal); Z99.2 Dependence on renal dialysis; K21.9 Gastro-esophageal reflux disease without esophagitis; E78.5 Hyperlipidemia, unspecified; Z79.01 Long term (current) use of anticoagulants; Z79.899 Other long term (current) drug therapy; F41.9 Anxiety disorder, unspecified; E66.01 Morbid (severe) obesity due to excess calories; E11.65 Type 2 diabetes mellitus with hyperglycemia; I95.89 Other hypotension; S09.90XA Unspecified injury of head, initial encounter; W19.XXXA Unspecified fall, initial encounter
CPT/HCPCS: 36415; 70450; 71275; 80053; 83036; 83735; 84484; 85025; 85610; 85730; 87635; 90935; 93005; 93308; 99291

== ENCOUNTER 2021-04-12 10:56 | Inpatient (IN) | payer MEDICARE, OTHER ==
--- NOTE | 2021-04-12 11:32 | ED ---
General Adult HPI - General Source: patient, EMS, RN notes reviewed Mode of arrival: EMS Limitations: no limitations <Jeff Masters - Last Filed: 04/12/21 11:28> <Ajay Live - Last Filed: 04/12/21 16:34> - General Chief complaint: Syncope Stated complaint: seizure Time Seen by Provider: 04/12/21 11:03 - History of Present Illness Initial comments: 46-year-old male presents emergency Department chief complaint of passing out episode. Patient has been in another hospital recently for bilateral pulmonary wasn't, syncopal episodes. Patient states that he was at home went to transfer from his chair to his bed states she did feel dizzy, flushed and is not passing out. He states that he has second episode shortly after in which she only called EMS. Patient states he was incontinent of his urine at this time. Denies any tongue injury. Patient does complain of mild headache. Patient is currently on blood thinners. Patient denies any neck pain or neck stiffness. (Jeff Masters) Patient does relate having at least 2 syncopal episodes today. Per his family, he apparently was having some flailing of his arms and legs. He also was incontinent of urine. He denies any known history of seizures in the past. He did have syncopal episode somewhat recently due to pulmonary embolism but is currently denying any chest pain or shortness of breath. He is also treated with blood thinners for the recent pulmonary embolism diagnoses and is on oxygen. He denies any other injuries. He does have chronic back pain and request his Percocet which is given. He also notes that he has end-stage renal failure and does dialysis at home 5 days a week. He sees Dr. Cope in this r egard. He also relates that his blood sugars have been running higher than normal recently and has been around 400 the last couple of days. (Ajay Live) - Related Data Home Medications Medication Instructions Recorded Confirmed Atorvastatin [Lipitor] 40 mg PO HS 01/31/17 04/12/21 Dialyvite 1 tab PO DAILY 01/31/17 04/12/21 Ergocalciferol [Vitamin D2 50,000 unit PO Q14D 01/31/17 04/12/21 (DRISDOL)] INSULIN LISPRO (For Pump) [humaLOG 0.01 units SQ-PUMP CONTINUOUS 01/31/17 04/12/21 (For Pump)] Omeprazole [PriLOSEC] 20 mg PO BID 01/31/17 04/12/21 Timolol [Betimol 0.5% Ophth Soln] 1 drop RIGHT EYE BID 01/31/17 04/12/21 Furosemide [Lasix] 80 mg PO BID 10/01/20 04/12/21 Pregabalin [Lyrica] 200 mg PO TID 10/01/20 04/12/21 oxyCODONE-APAP 10-325MG [Percocet 1 tab PO Q6H 10/01/20 04/12/21 10-325 mg] Heparin Sodium,Porcine [Heparin 64,000 units MISCELLANE MOTUWEFRSA 03/16/21 04/12/21 Sodium] Metoclopramide [Reglan] 5 mg PO TID-W/MEALS 03/16/21 04/12/21 Midodrine HCl [ProAmatine] 10 mg PO TID 03/16/21 04/12/21 Ondansetron HCl [Zofran] 4 mg PO BID 03/16/21 04/12/21 Rivaroxaban [Xarelto] 20 mg PO DAILY 04/12/21 04/12/21 Allergies Allergy/AdvReac Type Severity Reaction Status Date / Time No Known Allergies Allergy Verified 04/12/21 12:43 Review of Systems ROS Other: All systems not noted in ROS Statement are negative. <Jeff Masters - Last Filed: 04/12/21 11:28> ROS Other: All systems not noted in ROS Statement are negative. <Ajay Live - Last Filed: 04/12/21 16:34> ROS Statement: Those systems with pertinent positive or pertinent negative responses have been documented in the HPI. Past Medical History Past Medical History: Diabetes Mellitus, Dialysis, GERD/Reflux, Hyperlipidemia, Pulmonary Embolus (PE), Renal Disease, Syncope Additional Past Medical History / Comment(s): See Dr Freed H&P, constipation, anemia, History of Any Multi-Drug Resistant Organisms: None Reported Additional Past Surgical History / Comment(s): tom cataract, peritoneal dialysis catheter rt side, ECOS 03/19/21 Past Anesthesia/Blood Transfusion Reactions: No Reported Reaction Past Psychological History: Anxiety Smoking Status: Never smoker Past Alcohol Use History: None Reported Past Drug Use History: None Reported - Past Family History Mother Family Medical History: Cancer Father Family Medical History: Dementia <Jeff Masters - Last Filed: 04/12/21 11:28> General Exam General appearance: alert, in no apparent distress Head exam: Present: atraumatic, normocephalic, normal inspection Eye exam: Present: normal appearance, PERRL, EOMI. Absent: scleral icterus, conjunctival injection, periorbital swelling ENT exam: Present: normal exam (Nasal cannula in place) Respiratory exam: Present: normal lung sounds bilaterally, other (Port noted). Absent: respiratory distress, wheezes, rales, rhonchi, stridor Cardiovascular Exam: Present: regular rate, normal rhythm, normal heart sounds. Absent: systolic murmur, diastolic murmur, rubs, gallop, clicks Extremities exam: Present: normal inspection, full ROM Neurological exam: Present: alert, oriented X3, CN II-XII intact, reflexes normal. Absent: motor sensory deficit Skin exam: Present: warm, dry, intact, normal color. 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 Operator ] Respiratory 18 18 Rate Blood Pressure 96/67 O2 Sat by Pulse 90 L Oximetry 04/12/21 15:30 Temperature 97.8 F Pulse Rate 62 Pulse Rate [ Felt Hat Flanging Operator ] Respiratory 16 Rate Blood Pressure 117/89 O2 Sat by Pulse 96 Oximetry EKG Findings - EKG Comments: EKG Findings:: EKG performed at 11:13 normal sinus rhythm with a rightward axis and incomplete bundle noted prolonged QT with a rate of 80 IA 152 QRS 94, QT/QTc 412/498 inverted T waves noted in V2 through V4 <Jeff Masters - Last Filed: 04/12/21 11:28> Medical Decision Making - Lab Data Result diagrams: 04/12/21 11:30 04/12/21 11:30 <Ajay Live - Last Filed: 04/12/21 16:34> - Medical Decision Making The patient was seen and examined. All diagnostics are reviewed. Report is received from the physician escrow assistant. The computed tomography scan of brain does not show any acute processes. The chest x-ray shows degree of atelectasis. His glucose initially is 596 and comes down to 404 after 10 units of insulin. His calcium is slightly low, creatinine is elevated at 7.7, potassium is elevated at 6.3, sodium is low at 132, CO2 is low at 21. The exact cause of his syncopal episode is not definitively determine but it sounds as though it potentially could be related to a new onset seizure. Case is discussed with Dr. De La Cruz from internal medicine and he is agreeable with admission with neurology to consult. Nephrology will also be consulted. Patient will be admitted to [facility] with telemetry for full admission. Delay in care/disposition is noted due to patient having poor IV access and required anesthesia to obtain a ultrasound guided IV started. (Ajay Live) - Lab Data Lab Results 04/12/21 04/12/21 04/12/21 Range/Units 11:30 11:30 11:30 WBC 8.8 (3.8-10.6) k/uL RBC 3.92 L (4.30-5.90) m/uL Hgb 11.6 L (13.0-17.5) gm/dL Hct 39.6 (39.0-53.0) % MCV 100.9 H (80.0-100.0) fL MCH 29.5 (25.0-35.0) pg MCHC 29.2 L (31.0-37.0) g/dL RDW 18.1 H (11.5-15.5) % Plt Count 151 (150-450) k/uL MPV 12.2 Neutrophils % 69 % Lymphocytes % 22 % Monocytes % 6 % Eosinophils % 1 % Basophils % 1 % Neutrophils # 6.1 (1.3-7.7) k/uL Lymphocytes # 1.9 (1.0-4.8) k/uL Monocytes # 0.6 (0-1.0) k/uL Eosinophils # 0.1 (0-0.7) k/uL Basophils # 0.1 (0-0.2) k/uL Hypochromasia Marked Anisocytosis Slight Macrocytosis Moderate PT 12.1 H (9.0-12.0) sec INR 1.2 H (<1.2) APTT 23.4 (22.0-30.0) sec Sodium 132 L (137-145) mmol/L Potassium 6.3 H* (3.5-5.1) mmol/L Chloride 97 L (98-107) mmol/L Carbon Dioxide 21 L (22-30) mmol/L Anion Gap 14 mmol/L BUN 45 H (9-20) mg/dL Creatinine 7.71 H* (0.66-1.25) mg/dL Est GFR (CKD-EPI)AfAm 9 (>60 ml/min/1.73 sqM) Est GFR (CKD-EPI)NonAf 8 (>60 ml/min/1.73 sqM) Glucose 539 H* (74-99) mg/dL POC Glucose (mg/dL) (75-99) mg/dL POC Glu Counting Machine Operator ID Calcium 8.0 L (8.4-10.2) mg/dL Magnesium 1.8 (1.6-2.3) mg/dL Total Bilirubin 0.6 (0.2-1.3) mg/dL AST 86 H (17-59) U/L ALT 45 (4-49) U/L Alkaline Phosphatase 258 H (38-126) U/L Troponin I (0.000-0.034) ng/mL Total Protein 7.1 (6.3-8.2) g/dL Albumin 4.1 (3.5-5.0) g/dL Acetone, Qual (Negative) 04/12/21 04/12/21 04/12/21 Range/Units 11:30 11:31 15:01 WBC (3.8-10.6) k/uL RBC (4.30-5.90) m/uL Hgb (13.0-17.5) gm/dL Hct (39.0-53.0) % MCV (80.0-100.0) fL MCH (25.0-35.0) pg MCHC (31.0-37.0) g/dL RDW (11.5-15.5) % Plt Count (150-450) k/uL MPV Neutrophils % % Lymphocytes % % Monocytes % % Eosinophils % % Basophils % % Neutrophils # (1.3-7.7) k/uL Lymphocytes # (1.0-4.8) k/uL Monocytes # (0-1.0) k/uL Eosinophils # (0-0.7) k/uL Basophils # (0-0.2) k/uL Hypochromasia Anisocytosis Macrocytosis PT (9.0-12.0) sec INR (<1.2) APTT (22.0-30.0) sec Sodium (137-145) mmol/L Potassium (3.5-5.1) mmol/L Chloride (98-107) mmol/L Carbon Dioxide (22-30) mmol/L Anion Gap mmol/L BUN (9-20) mg/dL Creatinine (0.66-1.25) mg/dL Est GFR (CKD-EPI)AfAm (>60 ml/min/1.73 sqM) Est GFR (CKD-EPI)NonAf (>60 ml/min/1.73 sqM) Glucose (74-99) mg/dL POC Glucose (mg/dL) 596 H (75-99) mg/dL POC Glu Counting Machine Operator ID Akira, Gisel Calcium (8.4-10.2) mg/dL Magnesium (1.6-2.3) mg/dL Total Bilirubin (0.2-1.3) mg/dL AST (17-59) U/L ALT (4-49) U/L Alkaline Phosphatase (38-126) U/L Troponin I 0.022 (0.000-0.034) ng/mL Total Protein (6.3-8.2) g/dL Albumin (3.5-5.0) g/dL Acetone, Qual Negative (Negative) 04/12/21 Range/Units 15:44 WBC (3.8-10.6) k/uL RBC (4.30-5.90) m/uL Hgb (13.0-17.5) gm/dL Hct (39.0-53.0) % MCV (80.0-100.0) fL MCH (25.0-35.0) pg MCHC (31.0-37.0) g/dL RDW (11.5-15.5) % Plt Count (150-450) k/uL MPV Neutrophils % % Lymphocytes % % Monocytes % % Eosinophils % % Basophils % % Neutrophils # (1.3-7.7) k/uL Lymphocytes # (1.0-4.8) k/uL Monocytes # (0-1.0) k/uL Eosinophils # (0-0.7) k/uL Basophils # (0-0.2) k/uL Hypochromasia Anisocytosis Macrocytosis PT (9.0-12.0) sec INR (<1.2) APTT (22.0-30.0) sec Sodium (137-145) mmol/L Potassium (3.5-5.1) mmol/L Chloride (98-107) mmol/L Carbon Dioxide (22-30) mmol/L Anion Gap mmol/L BUN (9-20) mg/dL Creatinine (0.66-1.25) mg/dL Est GFR (CKD-EPI)AfAm (>60 ml/min/1.73 sqM) Est GFR (CKD-EPI)NonAf (>60 ml/min/1.73 sqM) Glucose (74-99) mg/dL POC Glucose (mg/dL) 404 H (75-99) mg/dL POC Glu Counting Machine Operator ID Gabi Lawrence Calcium (8.4-10.2) mg/dL Magnesium (1.6-2.3) mg/dL Total Bilirubin (0.2-1.3) mg/dL AST (17-59) U/L ALT (4-49) U/L Alkaline Phosphatase (38-126) U/L Troponin I (0.000-0.034) ng/mL Total Protein (6.3-8.2) g/dL Albumin (3.5-5.0) g/dL Acetone, Qual (Negative) Disposition <Jeff Masters - Last Filed: 04/12/21 11:28> Is patient prescribed a controlled substance at d/c from ED?: No Time of Disposition: 16:33 Decision Date: 04/12/21 Decision Time: 16:33 <Ajay Live - Last Filed: 04/12/21 16:34> Clinical Impression: Recurrent syncope, Anemia, Hypocalcemia, Hyperglycemia, Diabetes, End stage renal failure on dialysis, Hyperkalemia, Hyponatremia Disposition: ADMITTED IP TO THIS HOSP Condition: Fair Referrals: Baldev Ayers MD [Primary Care Provider] - 1-2 days
[2021-04-12 11:33] LABS: Glucose,Whole Blood 596 mg/dL (75-99)
--- NOTE | 2021-04-12 12:02 | XR ---
EXAMINATION TYPE: XR chest 2V DATE OF EXAM: 04/12/2021 COMPARISON: 03/20/2021 HISTORY: Syncope TECHNIQUE: Frontal and lateral views of the chest are obtained. FINDINGS: Bilateral IJ lines are unchanged. Linear density in the left lung base most likely represents atelectasis. Lungs are otherwise clear. Cardiac silhouette is not enlarged. IMPRESSION: Likely left basilar atelectasis.
[2021-04-12 12:12] LABS: Anisocytosis Slight; Basophils # (A) 0.1 k/uL (0-0.2); Basophils % (A) 1 %; Eosinophils # (A) 0.1 k/uL (0-0.7); Eosinophils % (A) 1 %; HCT 39.6 % (39.0-53.0); HGB 11.6 gm/dL (13.0-17.5); Hypochromasia Marked; Lymphocytes # (A) 1.9 k/uL (1.0-4.8); Lymphocytes % (A) 22 %; MCH 29.5 pg (25.0-35.0); MCHC 29.2 g/dL (31.0-37.0); MCV 100.9 fL (80.0-100.0); Macrocytosis Moderate; Mean Platelet Volume 12.2; Monocytes # (A) 0.6 k/uL (0-1.0); Monocytes % (A) 6 %; Neutrophils # (A) 6.1 k/uL (1.3-7.7); Neutrophils % (A) 69 %; Platelet Count 151 k/uL (150-450); RBC 3.92 m/uL (4.30-5.90); RDW 18.1 % (11.5-15.5); WBC 8.8 k/uL (3.8-10.6)
--- NOTE | 2021-04-12 12:28 | CT ---
EXAMINATION TYPE: CT brain wo con DATE OF EXAM: 04/12/2021 COMPARISON: CT brain 04/07/2021 HISTORY: recurrent syncope CT DLP: 1079.4 mGycm. Automated Exposure Control for Dose Reduction was Utilized. TECHNIQUE: CT scan of the head is performed without contrast. FINDINGS: There is no acute intracranial hemorrhage, mass effect, or midline shift identified. The ventricles and sulci are stable in size, there is cortical atrophy. The globes are intact and the v isualized sinuses are similar, there may be mucus retention cysts, polyps within the maxillary sinuse s. There are cerebral vascular calcifications IMPRESSION: No acute intracranial hemorrhage, mass effect, or midline shift is seen.
[2021-04-12] MEDS ORDERED: INSULIN REGULAR 100 UNIT/ML VIAL (IV) IV ONE (12:29)
[2021-04-12 14:20] LABS: INR 1.2 (<1.2); Prothrombin Time 12.1 sec (9.0-12.0)
[2021-04-12 14:21] LABS: Partial Thromboplastin Time 23.4 sec (22.0-30.0)
[2021-04-12 14:29] LABS: Albumin 4.1 g/dL (3.5-5.0); Magnesium 1.8 mg/dL (1.6-2.3); Total Bilirubin 0.6 mg/dL (0.2-1.3); Total Protein 7.1 g/dL (6.3-8.2)
[2021-04-12 14:52] LABS: Potassium 6.3 mmol/L (3.5-5.1)
[2021-04-12 15:45] LABS: Glucose,Whole Blood 404 mg/dL (75-99)
[2021-04-12] MEDS ORDERED: oxyCODONE-APAP 10-325MG 1 EACH TAB PO PRN (16:02)
[2021-04-12] MEDS ORDERED: ACETAMINOPHEN TAB 325 MG TAB PO PRN (16:34)
[2021-04-12] MEDS ORDERED: ONDANSETRON 4 MG/2 ML VIAL IVP PRN (16:34)
[2021-04-12] MEDS ORDERED: NALOXONE 0.4 MG/ML 1 ML VIAL IV PRN (16:34)
[2021-04-12] MEDS ORDERED: SODIUM BICARB 8.4% 50 ML SYR (1 MEQ/ML) IV STA (16:39)
[2021-04-12] MEDS ORDERED: SODIUM POLYSTYRENE SULFONATE 15 GM/60 ML BOTTLE PO STA (16:39)
[2021-04-12] MEDS ORDERED: INSULIN LISPRO (For Pump) 100 UNIT/ML VIAL SQ-PUMP SCH (16:45)
[2021-04-12] MEDS ORDERED: ERGOCALCIFEROL 1,250 MCG (50,000 IU) CAPSULE PO SCH (16:45)
--- NOTE | 2021-04-12 18:13 | P.HPIM ---
History of Present Illness H&P Date: 04/12/21 Chief Complaint: Syncope This is a 46-year-old male with a very complex past medical history noted below significant for end-stage renal disease on hemodialysis that was diagnosed with a large bilateral PE with right ventricular strain end of February and underwent EKOS procedure during that admission. Since then, patient has been having with dizziness mostly orthostatic and was hospitalized last week after he had the syncopal episode that was thought to be attributed to dehydration and orthostatic hypotension. Patient was discharged home in a stable condition but said that he continue to feel dizzy. He has been following instruction to get up slowly and also taking midodrine at home. He said this time he had the syncopal episode that was different than other times as his family members told him that his 4 extremities were failing and that he lost control over his urine and wet himself. Patient denies any history of seizure disorder. He said that his son has seizure but he never had a seizure before. Patient was brought into the emergency room for further evaluation. In the ER, computed tomography scan of the brain showed no acute intracranial findings. Patient will be admitted to the hospital for further evaluation. Review of Systems Review of system: 14 points review of systems were obtained and were negative except to what were mentioned in the HPI. Past Medical History Past Medical History: Diabetes Mellitus, Dialysis, GERD/Reflux, Hyperlipidemia, Pulmonary Embolus (PE), Renal Disease, Syncope Additional Past Medical History / Comment(s): See Dr Freed H&P, constipation, anemia, History of Any Multi-Drug Resistant Organisms: None Reported Additional Past Surgical History / Comment(s): tom cataract, peritoneal dialysis catheter rt side, ECOS 03/19/21 Past Anesthesia/Blood Transfusion Reactions: No Reported Reaction Past Psychological History: Anxiety Smoking Status: Never smoker Past Alcohol Use History: None Reported Past Drug Use History: None Reported - Past Family History Mother Family Medical History: Cancer Father Family Medical History: Dementia Medications and Allergies Home Medications Medication Instructions Recorded Confirmed Type Atorvastatin [Lipitor] 40 mg PO HS 01/31/17 04/12/21 History Dialyvite 1 tab PO DAILY 01/31/17 04/12/21 History Ergocalciferol [Vitamin D2 50,000 unit PO Q14D 01/31/17 04/12/21 History (ERNESTINE)] INSULIN LISPRO (For Pump) [humaLOG 0.01 units SQ-PUMP CONTINUOUS 01/31/17 0 04/12/21 History (For Pump)] Omeprazole [PriLOSEC] 20 mg PO BID 01/31/17 04/12/21 History Timolol [Betimol 0.5% Ophth Soln] 1 drop RIGHT EYE BID 01/31/17 04/12/21 History Furosemide [Lasix] 80 mg PO BID 10/01/20 04/12/21 History Pregabalin [Lyrica] 200 mg PO TID 10/01/20 04/12/21 History oxyCODONE-APAP 10-325MG [Percocet 1 tab PO Q6H 10/01/20 04/12/21 History 10-325 mg] Heparin Sodium,Porcine [Heparin 64,000 units MISCELLANE MOTUWEFRSA 03/16/21 04/12/21 History Sodium] Metoclopramide [Reglan] 5 mg PO TID-W/MEALS 03/16/21 04/12/21 History Midodrine HCl [ProAmatine] 10 mg PO TID 03/16/21 04/12/21 History Ondansetron HCl [Zofran] 4 mg PO BID 03/16/21 04/12/21 History Rivaroxaban [Xarelto] 20 mg PO DAILY 04/12/21 04/12/21 History Allergies Allergy/AdvReac Type Severity Reaction Status Date / Time No Known Allergies Allergy Verified 04/12/21 12:43 Physical Exam Vitals: Vital Signs Temp Pulse Pulse Resp BP Pulse Ox 04/12/21 15:30 97.8 F 62 16 117/89 96 04/12/21 14:06 18 04/12/21 11:35 87 04/12/21 11:00 97.7 F 91 18 96/67 90 L Intake and Output 04/12/21 04/12/21 04/12/21 06:59 14:59 22:59 Other: Weight 101.151 kg General: The patient is awake and alert, in no distress Eye: there is normal conjunctiva bilaterally. Neck: The neck is supple, there is no JVD. Cardiovascular: Normal S1-S2, no S3-S4, no murmurs. Respiratory: Lungs clear to auscultation bilaterally Gastrointestinal: Abdomen is soft, nontender Musculoskeletal: There is no pedal edema. There is right BKA Neurological:. Speech is normal. Skin: Skin is warm and dry Results CBC & Chem 7: 04/12/21 11:30 04/12/21 11:30 Labs: Abnormal Lab Results - Last 24 Hours (Table) 04/12/21 04/12/21 04/12/21 Range/Units 11:30 11:30 11:30 RBC 3.92 L (4.30-5.90) m/uL Hgb 11.6 L (13.0-17.5) gm/dL MCV 100.9 H (80.0-100.0) fL MCHC 29.2 L (31.0-37.0) g/dL RDW 18.1 H (11.5-15.5) % PT 12.1 H (9.0-12.0) sec INR 1.2 H (<1.2) Sodium 132 L (137-145) mmol/L Potassium 6.3 H* (3.5-5.1) mmol/L Chloride 97 L (98-107) mmol/L Carbon Dioxide 21 L (22-30) mmol/L BUN 45 H (9-20) mg/dL Creatinine 7.71 H* (0.66-1.25) mg/dL Glucose 539 H* (74-99) mg/dL POC Glucose (mg/dL) (75-99) mg/dL Calcium 8.0 L (8.4-10.2) mg/dL AST 86 H (17-59) U/L Alkaline Phosphatase 258 H (38-126) U/L 04/12/21 04/12/21 Range/Units 11:31 15:44 RBC (4.30-5.90) m/uL Hgb (13.0-17.5) gm/dL MCV (80.0-100.0) fL MCHC (31.0-37.0) g/dL RDW (11.5-15.5) % PT (9.0-12.0) sec INR (<1.2) Sodium (137-145) mmol/L Potassium (3.5-5.1) mmol/L Chloride (98-107) mmol/L Carbon Dioxide (22-30) mmol/L BUN (9-20) mg/dL Creatinine (0.66-1.25) mg/dL Glucose (74-99) mg/dL POC Glucose (mg/dL) 596 H 404 H (75-99) mg/dL Calcium (8.4-10.2) mg/dL AST (17-59) U/L Alkaline Phosphatase (38-126) U/L Assessment and Plan Assessment: This is a 46-year-old male with past medical history noted below who presented to the emergency room with a syncopal episode and questionable seizure. Patient was evaluated in the ER and admitted to the hospital for further management of his medical problems noted below. 1. Recurrent dizziness and syncopal episode, exact etiology unclear. Initially thought to be attributed to orthostatic hypotension that was ruled out during last admission. Patient is maintained on midodrine. His most recent echocardiogram showed preserved ejection fraction and no significant valvular abnormalities. Patient has severe right ventricular strain secondary to un derlying PE. 2. Suspected seizure disorder, awaiting urology evaluation. Computed tomography scan of the head with no acute findings. 3. Recently diagnosed bilateral PE with right ventricular strain status post EKOS during previous admission. On anticoagulation with Rivaroxaban. Patient was seen and evaluated by vascular surgery during last 2 admissions. No further recommendations 4. End stage renal disease on hemodialysis, nephrology consulted 5. Type 2 diabetes on insulin pump. We will continue to monitor blood glucose closely 6. History of right below knee amputation 7. Morbid obesity
[2021-04-12 19:01] LABS: Glucose,Whole Blood 330 mg/dL (75-99)
[2021-04-12 20:15] LABS: Appearance,Urine Cloudy (Clear); Bilirubin,Urine Negative (Negative); Blood,Urine Trace (Negative); Color,Urine Yellow; Glucose,Urine (UA) 3+ (Negative); Ketones,Urine Negative (Negative); Leukocyte Esterase,Urine Moderate (Negative); Nitrite,Urine Negative (Negative); PH, Urine 5.5 (5.0-8.0); Protein,Urine 2+ (Negative); Specific Gravity,Urine 1.019 (1.001-1.035); Urobilinogen,Urine <2.0 mg/dL (<2.0)
[2021-04-12 20:16] LABS: Bacteria,Urine Rare /hpf; Mucus,Urine Rare /hpf; RBC,Urine 4 /hpf (0-5); Squamous Epithelial Cell,Urine 2 /hpf (0-4); WBC,Urine 42 /hpf (0-5)
[2021-04-12] MEDS: MIDODRINE 5 MG TAB PO SCH (20:20)
[2021-04-12] MEDS ORDERED: INSULIN ASPART (NovoLOG) 100 UNIT/ML VIAL SQ PRN (20:42)
[2021-04-12] MEDS ORDERED: INSPUCOR MISCELLANE PRN (20:42)
[2021-04-12] MEDS ORDERED: INSULIN PUMP BASAL RATES 1 EACH MISC MISCELLANE PRN (20:42)
[2021-04-12 21:15] LABS: Glucose,Whole Blood 307 mg/dL (75-99)
[2021-04-12] MEDS: TIMOLOL 0.5% OPHTH DROPS 5 ML BTL RIGHT EYE SCH (21:40)
[2021-04-12] MEDS: PREGABALIN 100 MG CAP PO SCH (21:40)
[2021-04-12] MEDS: FUROSEMIDE 80 MG TAB PO SCH (21:40)
[2021-04-12] MEDS: METOCLOPRAMIDE 5 MG TAB PO SCH (21:40)
[2021-04-12] MEDS: ATORVASTATIN 40 MG TAB PO SCH (21:40)
[2021-04-12] MEDS: INSULIN PUMP MEAL BOLUS 1 UNIT MISC MISCELLANE SCH (21:40)
[2021-04-12] MEDS: oxyCODONE-APAP 10-325MG 1 EACH TAB PO PRN (21:47)
[2021-04-13 02:31] LABS: Glucose,Whole Blood 230 mg/dL (75-99)
[2021-04-13] MEDS: oxyCODONE-APAP 10-325MG 1 EACH TAB PO PRN ×3 (06:22→20:36)
[2021-04-13] MEDS: METOCLOPRAMIDE 5 MG TAB PO SCH ×3 (06:22→16:59)
[2021-04-13] MEDS: MIDODRINE 5 MG TAB PO SCH ×3 (06:22→16:59)
[2021-04-13] MEDS: PANTOPRAZOLE 40 MG TABLET PO SCH (06:22)
[2021-04-13 08:15] LABS: Albumin 3.8 g/dL (3.5-5.0); Calcium 7.9 mg/dL (8.4-10.2); Magnesium 1.6 mg/dL (1.6-2.3); Phosphorus 7.4 mg/dL (2.5-4.5); Potassium 3.8 mmol/L (3.5-5.1); Total Bilirubin 0.2 mg/dL (0.2-1.3); Total Protein 6.5 g/dL (6.3-8.2)
[2021-04-13 08:34] LABS: Anisocytosis Slight; Basophils # (A) 0.1 k/uL (0-0.2); Basophils % (A) 1 %; Eosinophils # (A) 0.3 k/uL (0-0.7); Eosinophils % (A) 3 %; HCT 35.6 % (39.0-53.0); HGB 10.8 gm/dL (13.0-17.5); Hypochromasia Marked; Lymphocytes # (A) 2.9 k/uL (1.0-4.8); Lymphocytes % (A) 31 %; MCH 29.2 pg (25.0-35.0); MCHC 30.4 g/dL (31.0-37.0); MCV 96.1 fL (80.0-100.0); Macrocytosis Slight; Mean Platelet Volume 11.9; Monocytes # (A) 0.6 k/uL (0-1.0); Monocytes % (A) 6 %; Neutrophils # (A) 5.4 k/uL (1.3-7.7); Neutrophils % (A) 58 %; Platelet Count 165 k/uL (150-450); RBC 3.71 m/uL (4.30-5.90); RDW 18.2 % (11.5-15.5); WBC 9.4 k/uL (3.8-10.6)
[2021-04-13] MEDS: FUROSEMIDE 80 MG TAB PO SCH ×2 (09:00→20:37)
[2021-04-13] MEDS: RIVAROXABAN 20 MG TAB PO SCH (09:00)
[2021-04-13] MEDS: PREGABALIN 100 MG CAP PO SCH ×3 (09:00→20:36)
[2021-04-13] MEDS: FOLIC ACID-VIT B COMPLEX-VIT C 1 CAP PO SCH (09:00)
[2021-04-13] MEDS: TIMOLOL 0.5% OPHTH DROPS 5 ML BTL RIGHT EYE SCH ×2 (09:01→20:37)
[2021-04-13] MEDS ORDERED: levETIRAcetam IV 1,000 MG in SALINE 1 100ML.BAG IVPB STA (09:10)
[2021-04-13] MEDS: INSULIN PUMP MEAL BOLUS 1 UNIT MISC MISCELLANE SCH ×4 (09:15→21:13)
[2021-04-13 09:16] LABS: Glucose,Whole Blood 137 mg/dL (75-99)
--- NOTE | 2021-04-13 09:29 | P.CNNES ---
History of Present Illness Consult date: 04/13/21 Requesting physician: Ajay Live Reason for Consult: syncope. possible new onset seizure History of Present Illness: This is a 46-year-old gentleman with medical history of diabetes mellitus (since 24 years old), end-stage renal disease on hemodialysis, large pulmonary embolism with right ventricular strain who underwent EKOS procedure in February 2021, syncopal episodes, right below-knee amputation who presented to the emergency department on 04/12/2021 who presented because of syncopal episode. She stated that y in the afternoon he was sitting at the side of the bed then all of a sudden the he had an episode of loss of consciousness and was told by his family members he had the rolling of the eyes backward and the shaking of all extremities and it was felt was a flailing as well as an episode of urinary incontinence. The episode lasted 1-2 minutes and the patient was regained conscious immediately. He stated that since the patient had the recent pulmonary embolism s/p EKOS recently in the last few weeks he has been having multiple episodes of syncopal episodes. He stated that there mostly when he is going from lying to sitting or sitting to standing positions. He feels lightheaded and dizzy as if the room is spinning. As well as he has episode of loss of consciousness with shaking of all extremities. He denies any of these episodes prior to him having the pulmonary embolism with EKOS. He stated that the he's having these episodes about 3-4 times a day. Again he stated that he regained consciousness immediately. He denies of any chest pain, shortness of breath. Otherwise he denies of any difficulty getting his words out currently, swallowing, any focal weakness or numbness. Denies of any fever or headaches. He denies having seizure episodes in the past. Per the primary team's note patient's syncopal was thought to be attributed to orthostatic hypotension but that was ruled out during the last admission but he's maintained on midodrine. Regarding his history he stated that he was a product of the term, normal vaginal delivery and no complication. There is no family history of seizure other than his son he had seizures the around 14 years old. Some of the patient's home medication consist of Xarelto 20 mg daily, Lyrica 200 mg 1 tablet 3 times a day, midodrine 10 mg 1 tablet 3 times a day, Reglan, insulin, Lasix, Lipitor 40 mg daily, Percocet 1 tablet every 6 hours, Workup in the hospital consisted of: Initial vital signs: Blood pressure is 96/67, heart rate of 91, respiratory of 18, temperature of 97.7 Fahrenheit oral and pulse ox of 90% liters on 4 L of nasal cannula. CT had the head is reported as no acute intracranial hemorrhage, mass effect or midline shift is seen. EKG is reported as normal sinus rhythm. Rightward axis. Incomplete right bundle branch block. T wave abnormality, consider anterior ischemia. Prolonged QT. Abnormal EKG. Chest x-ray was reported as likely left basilar atelectasis White blood cell at presentation is 8.8 thousand which considered within normal limits MCV is 100.9 which is elevated in that hemoglobin is 11.6 which is midly low. On presentation the patient's sodium was 1:30 which is mildly low. Patient creatinine 7.7 and which is elevated but he has end-stage renal disease on dialysis. Glucose is 539 which is extremely elevated. Magnesium is 1.8, calcium is 8.0 which is slightly low, AST is 86 which is slightly elevated but ALT is 45 which is within normal limits. Urinalysis is a nitrate is negative, leukocyte esterase moderate, urine white blood cell is 42 which is elevated urine bacteria was rare possibly suggestive of urinary tract infection. Patient most recent 2-D echo on 04/07/2021 reported as left ventricular wall thickness is normal. Ejection fraction of 55-60%. Paradoxical motion of the right ventricle septum is consistent with a right ventricle overload and/or elevated right ventricular end-diastolic pressure. Review of Systems Review of system: The 12 point system was reviewed and apparent positive and negative per HPI. Past Medical History Past Medical History: Diabetes Mellitus, Dialysis, GERD/Reflux, Hyperlipidemia, Pulmonary Embolus (PE), Renal Disease, Syncope Additional Past Medical History / Comment(s): constipation, anemia, History of Any Multi-Drug Resistant Organisms: None Reported Additional Past Surgical History / Comment(s): tom cataract, peritoneal dialysis catheter rt side, ECOS 03/19/21 Past Anesthesia/Blood Transfusion Reactions: No Reported Reaction Past Psychological History: Anxiety Smoking Status: Never smoker Past Alcohol Use History: None Reported Past Drug Use History: None Reported - Past Family History Mother Family Medical History: Cancer Father Family Medical History: Dementia Medications and Allergies Home Medications Medication Instructions Recorded Confirmed Type Atorvastatin [Lipitor] 40 mg PO HS 01/31/17 04/12/21 History Dialyvite 1 tab PO DAILY 01/31/17 04/12/21 History Ergocalciferol [Vitamin D2 50,000 unit PO Q14D 01/31/17 04/12/21 History (DRISDOL)] INSULIN LISPRO (For Pump) [humaLOG 0.01 units SQ-PUMP CONTINUOUS 01/31/17 04/12/21 History (For Pump)] Omeprazole [PriLOSEC] 20 mg PO BID 01/31/17 04/12/21 History Timolol [Betimol 0.5% Ophth Soln] 1 drop RIGHT EYE BID 01/31/17 04/12/21 History Furosemide [Lasix] 80 mg PO BID 10/01/20 04/12/21 History Pregabalin [Lyrica] 200 mg PO TID 10/01/20 04/12/21 History oxyCODONE-APAP 10-325MG [Percocet 1 tab PO Q6H 10/01/20 04/12/21 History 10-325 mg] Heparin Sodium,Porcine [Heparin 64,000 units MISCELLANE MOTUWEFRSA 03/16/21 04/12/21 History Sodium] Metoclopramide [Reglan] 5 mg PO TID-W/MEALS 03/16/21 04/12/21 History Midodrine HCl [ProAmatine] 10 mg PO TID 03/16/21 04/12/21 History Ondansetron HCl [Zofran] 4 mg PO BID 03/16/21 04/12/21 History Rivaroxaban [Xarelto] 20 mg PO DAILY 04/12/21 04/12/21 History Allergies Allergy/AdvReac Type Severity Reaction Status Date / Time No Known Allergies Allergy Verified 04/12/21 12:43 Physical Examination - Vital Signs Vital Signs: Vital Signs Temp Pulse Pulse Resp BP BP Pulse Ox 04/13/21 04:00 80 18 110/73 94 L 04/13/21 01:32 85 18 04/13/21 00:00 85 18 95/54 95 04/12/21 20:00 90 18 04/12/21 18:51 98.2 F 90 18 122/86 95 04/12/21 15:30 97.8 F 62 16 117/89 96 04/12/21 14:06 18 04/12/21 11:35 87 04/12/21 11:00 97.7 F 91 18 96/67 90 L Intake and Output 04/12/21 04/13/21 04/13/21 22:59 06:59 14:59 Intake Total 480 Balance 480 Intake: Oral 480 Other: Weight 101.151 kg 100 kg GENERAL: The patient is lying in bed and is not in acute distress. CHEST: The heart rate is regular rate rhythm. No murmurs to auscultation. No carotid bruit bilaterally. LUNG: Clear to auscultation bilaterally no wheezing noted throughout. Not labored breathing. ABDOMEN/GI: Bowel sounds present in all 4 quadrants. No tenderness to palpation throughout. NEUROLOGICAL: Higher mental function: The patient is awake, alert, oriented to self, place and time. Patient is following commands. No aphasia and no neglect. Cranial nerves: The pupils are round, equal and reactive to light and accommodation. Visual martinez are full to confrontation throughout. Extraocular movement is intact no nystagmus is noted. Facial sensation is normal to touch throughout. The facial strength is normal throughout. Hearing is normal bilaterally to hand rub. Tongue is midline and moved [id number] without any difficulty. No dysarthria is noted. Shoulder shrug is normal bilaterally. Motor: Gait is deferred. The strength is 5 over 5 throughout. He has right below knee amputation. Normal tone and bulk. Cerebellum: Normal finger to nose bilaterally. Sensation: Sensation is normal to touch throughout. Reflexes (right/left): 2+ throughout uppers while 1+ in lowers. Has right below knee amputation. Plantars is downgoing over the left. Amputated below right knee. Results Urine acetone is negative Lomeli virus PCR is not detected. - Laboratory Findings CBC and BMP: 04/13/21 07:22 04/13/21 07:22 Abnormal Lab Findings: Abnormal Labs 04/12/21 04/12/21 04/12/21 11:30 11:30 11:30 RBC 3.92 L Hgb 11.6 L MCV 100.9 H MCHC 29.2 L RDW 18.1 H PT 12.1 H INR 1.2 H Sodium Potassium Chloride Carbon Dioxide BUN Creatinine Glucose POC Glucose (mg/dL) Calcium AST Alkaline Phosphatase Urine Protein 2+ H Urine Glucose (UA) 3+ H Urine Blood Trace H Ur Leukocyte Esterase Moderate H Urine WBC 42 H Urine Bacteria Rare H Urine Mucus Rare H 04/12/21 04/12/21 04/12/21 11:30 11:31 15:44 RBC Hgb MCV MCHC RDW PT INR Sodium 132 L Potassium 6.3 H* Chloride 97 L Carbon Dioxide 21 L BUN 45 H Creatinine 7.71 H* Glucose 539 H* POC Glucose (mg/dL) 596 H 404 H Calcium 8.0 L AST 86 H Alkaline Phosphatase 258 H Urine Protein Urine Glucose (UA) Urine Blood Ur Leukocyte Esterase Urine WBC Urine Bacteria Urine Mucus 04/12/21 04/12/21 04/13/21 18:59 20:51 02:14 RBC Hgb MCV MCHC RDW PT INR Sodium Potassium Chloride Carbon Dioxide BUN Creatinine Glucose POC Glucose (mg/dL) 330 H 307 H 230 H Calcium AST Alkaline Phosphatase Urine Protein Urine Glucose (UA) Urine Blood Ur Leukocyte Esterase Urine WBC Urine Bacteria Urine Mucus Assessment and Plan Assessment: * Syncope with episode with reported flailing of all extremities and urine incontinence, eye rolling of back: Seems possibly seizure (but seems atypical of why he started developing this after recent PE s/p EKOS recently). Cannot rule out other causes (orthostatic vs ?hypoxia leading to these events especially since recurrent and are positional since having recent PE with EKOS and prolonged history of diabetes mellitus causing autonomic dysfunction. * Recurrent episodes of syncopal episodes with feeling light headed and dizzy (that seems positional). Possibly autonomic dysfunction (from long standing of DM vs orthostatic (previous orthostatic negative and is on Midodrine). Rule out cardiac in etiology. * Possible urinary tract infection * End-stage renal disease on hemodialysis * Type 2 diabetes on insulin pump that presents with uncontrolled sugar * Recently diagnosed bilateral pulmonary embolism with right ventricular strain status post EKOS on last admission. On Rivaroxaban. * History of right below-knee amputation (after injury to ankle) Plan: * Started the patient on Keppra 500 mg every 12 hours. I loaded the patient with Keppra 1000 mg once. * I ordered a routine EEG. If the EEG is normal then I would recommend a prolonged EEG possibly as outpatient to capture these episodes. Ordered MRI of the brain seizure protocol. * Ordered orthostatic vitals again. If they are negative then will proceed with tilt table test. * Placed the patient on seizure precaution as well as pads. * Every 4 hours neuro checks. * On continous cardiac monitoring * Recommend an event monitor or loop recorder as an outpatient. * Cardiology is consulted * Nephrology is consulted. * Regarding the macrocytic anemia I ordered vitamin B12, folate and methylmalonic acid level * Will defer the rest of medical management to the primary team. 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 He is to avoid heights, using heavy machinery or swimming unassisted. Thank you for the consultation. UPDATE: I ordered a prolonged 2.5 hours EEG as outpatient. Ankush Lassiter MD Neuro-Hospitalist. Time with Patient: Greater than 30
--- NOTE | 2021-04-13 09:29 | P.NPCON ---
History of Present Illness - Reason for Consult end stage renal disease - History of Present Illness Reason for consultation: End-stage renal disease History of present illness: Patient is a 46-year-old male seen in renal consultation for end-stage renal disease. He is maintained on home hemodialysis. Patient presented to the hospital due to syncopal episode. Patient states he was sitting on a chair and when tried to move to his bed he felt dizzy and passed out. Patient was admitted with recent syncopal episodes earlier this month. He does have bilateral pulmonary embolism and is maintained on anticoagulation outpatient. Patient states that he feels dizzy mostly with positional changes. No vomiting or diarrhea. No chest pain or shortness of breath. Last hemodialysis was on Friday. No fever or chills. He does have chronic hypotension and is maintained on midodrine. Vital signs are stable. General: The patient appeared well nourished and normally developed. HEENT: Head exam is unremarkable. Neck is without jugular venous distension. LUNGS: Breath sounds decreased. HEART: Rate and Rhythm are regular. ABDOMEN: Soft, obese. EXTREMITITES: BKA noted. No edema. Past Medical History Past Medical History: Diabetes Mellitus, Dialysis, GERD/Reflux, Hyperlipidemia, Pulmonary Embolus (PE), Renal Disease, Syncope Additional Past Medical History / Comment(s): constipation, anemia, History of Any Multi-Drug Resistant Organisms: None Reported Additional Past Surgical History / Comment(s): tom cataract, peritoneal dialysis catheter rt side, ECOS 03/19/21 Past Anesthesia/Blood Transfusion Reactions: No Reported Reaction Past Psychological History: Anxiety Smoking Status: Never smoker Past Alcohol Use History: None Reported Past Drug Use History: None Reported - Past Family History Mother Family Medical History: Cancer Father Family Medical History: Dementia Medications and Allergies Home Medications Medication Instructions Recorded Confirmed Type Atorvastatin [Lipitor] 40 mg PO HS 01/31/17 04/12/21 History Dialyvite 1 tab PO DAILY 01/31/17 04/12/21 History Ergocalciferol [Vitamin D2 50,000 unit PO Q14D 01/31/17 04/12/21 History (DRISDOL)] INSULIN LISPRO (For Pump) [humaLOG 0.01 units SQ-PUMP CONTINUOUS 01/31/17 04/12/21 History (For Pump)] Omeprazole [PriLOSEC] 20 mg PO BID 01/31/17 04/12/21 History Timolol [Betimol 0.5% Ophth Soln] 1 drop RIGHT EYE BID 01/31/17 04/12/21 History Furosemide [Lasix] 80 mg PO BID 10/01/20 04/12/21 History Pregabalin [Lyrica] 200 mg PO TID 10/01/20 04/12/21 History oxyCODONE-APAP 10-325MG [Percocet 1 tab PO Q6H 10/01/20 04/12/21 History 10-325 mg] Heparin Sodium,Porcine [Heparin 64,000 units MISCELLANE MOTUWEFRSA 03/16/21 04/12/21 History Sodium] Metoclopramide [Reglan] 5 mg PO TID-W/MEALS 03/16/21 04/12/21 History Midodrine HCl [ProAmatine] 10 mg PO TID 03/16/21 04/12/21 History Ondansetron HCl [Zofran] 4 mg PO BID 03/16/21 04/12/21 History Rivaroxaban [Xarelto] 20 mg PO DAILY 04/12/21 04/12/21 History Allergies Allergy/AdvReac Type Severity Reaction Status Date / Time No Known Allergies Allergy Verified 04/12/21 12:43 Physical Exam Vitals: Vital Signs Temp Pulse Pulse Pulse Pulse Resp BP 04/13/21 08:00 97.5 F L 94 86 16 04/13/21 04:00 80 18 04/13/21 01:32 85 18 04/13/21 00:00 85 18 04/12/21 20:00 90 18 04/12/21 18:51 98.2 F 90 18 04/12/21 15:30 97.8 F 62 16 117/89 04/12/21 14:06 18 04/12/21 11:35 87 04/12/21 11:00 97.7 F 91 18 96/67 BP BP BP Pulse Ox 04/13/21 08:00 104/65 114/76 92 L 04/13/21 04:00 110/73 94 L 04/13/21 01:32 04/13/21 00:00 95/54 95 04/12/21 20:00 04/12/21 18:51 122/86 95 04/12/21 15:30 96 04/12/21 14:06 04/12/21 11:35 04/12/21 11:00 90 L Intake and Output 04/12/21 04/13/21 04/13/21 22:59 06:59 14:59 Intake Total 480 Balance 480 Intake: Oral 480 Other: Weight 101.151 kg 100 kg Results - Lab Results Most recent lab results Calcium 7.9 mg/dL (8.4-10.2) L 04/13/21 07:22 Phosphorus 7.4 mg/dL (2.5-4.5) H 04/13/21 07:22 Magnesium 1.6 mg/dL (1.6-2.3) 04/13/21 07:22 04/13/21 07:22 04/13/21 07:22 Assessment and Plan Plan: Assessment: 1. End-stage renal disease maintained on home hemodialysis. 2. Syncopal episode. Possibly related to PE versus cardiac in nature. Rule out orthostatic hypotension. Neurology following. 3. Chronic hypotension maintained on midodrine. 4. Diabetes mellitus. 5. Chronic kidney disease mineral bone disease. 6. PE maintained on anticoagulation. Plan: Hemodialysis today. Add PhosLo with meals. Check orthostatic vital signs. EEG and MRI pending. Thank you for the consultation. I will continue to follow the patient with you during his hospital stay.
[2021-04-13 11:38] LABS: Large Platelets Present
--- NOTE | 2021-04-13 11:45 | P.PN ---
Subjective Progress Note Date: 04/13/21 No acute events overnight Objective - Vital Signs Vital signs: Vital Signs Temp 97.5 F L 04/13/21 08:00 Pulse 86 04/13/21 08:00 Resp 16 04/13/21 08:00 BP 114/76 04/13/21 08:00 Pulse Ox 92 L 04/13/21 08:00 Intake & Output 04/12/21 04/13/21 04/13/21 18:59 06:59 18:59 Intake Total 480 180 Balance 480 180 Weight 101.151 kg 100 kg Intake: Oral 480 180 - Exam General: The patient is awake and alert, in no distress Eye: there is normal conjunctiva bilaterally. Neck: The neck is supple, there is no JVD. Cardiovascular: Normal S1-S2, no S3-S4, no murmurs. Respiratory: Lungs clear to auscultation bilaterally Gastrointestinal: Abdomen is soft, nontender Musculoskeletal: There is no pedal edema. There is a right BKA Neurological:. Speech is normal. Skin: Skin is warm and dry - Labs CBC & Chem 7: 04/13/21 07:22 04/13/21 07:22 Labs: Abnormal Lab Results - Last 24 Hours (Table) 04/12/21 04/12/21 04/12/21 Range/Units 11:30 11:30 11:30 RBC 3.92 L (4.30-5.90) m/uL Hgb 11.6 L (13.0-17.5) gm/dL Hct (39.0-53.0) % MCV 100.9 H (80.0-100.0) fL MCHC 29.2 L (31.0-37.0) g/dL RDW 18.1 H (11.5-15.5) % PT 12.1 H (9.0-12.0) sec INR 1.2 H (<1.2) Sodium (137-145) mmol/L Potassium (3.5-5.1) mmol/L Chloride (98-107) mmol/L Carbon Dioxide (22-30) mmol/L BUN (9-20) mg/dL Creatinine (0.66-1.25) mg/dL Glucose (74-99) mg/dL POC Glucose (mg/dL) (75-99) mg/dL Calcium (8.4-10.2) mg/dL Phosphorus (2.5-4.5) mg/dL AST (17-59) U/L Alkaline Phosphatase (38-126) U/L Urine Protein 2+ H (Negative) Urine Glucose (UA) 3+ H (Negative) Urine Blood Trace H (Negative) Ur Leukocyte Esterase Moderate H (Negative) Urine WBC 42 H (0-5) /hpf Urine Bacteria Rare H (None) /hpf Urine Mucus Rare H (None) /hpf 04/12/21 04/12/21 04/12/21 Range/Units 11:30 15:44 18:59 RBC (4.30-5.90) m/uL Hgb (13.0-17.5) gm/dL Hct (39.0-53.0) % MCV (80.0-100.0) fL MCHC (31.0-37.0) g/dL RDW (11.5-15.5) % PT (9.0-12.0) sec INR (<1.2) Sodium 132 L (137-145) mmol/L Potassium 6.3 H* (3.5-5.1) mmol/L Chloride 97 L (98-107) mmol/L Carbon Dioxide 21 L (22-30) mmol/L BUN 45 H (9-20) mg/dL Creatinine 7.71 H* (0.66-1.25) mg/dL Glucose 539 H* (74-99) mg/dL POC Glucose (mg/dL) 404 H 330 H (75-99) mg/dL Calcium 8.0 L (8.4-10.2) mg/dL Phosphorus (2.5-4.5) mg/dL AST 86 H (17-59) U/L Alkaline Phosphatase 258 H (38-126) U/L Urine Protein (Negative) Urine Glucose (UA) (Negative) Urine Blood (Negative) Ur Leukocyte Esterase (Negative) Urine WBC (0-5) /hpf Urine Bacteria (None) /hpf Urine Mucus (None) /hpf 04/12/21 04/13/21 04/13/21 Range/Units 20:51 02:14 07:22 RBC 3.71 L (4.30-5.90) m/uL Hgb 10.8 L (13.0-17.5) gm/dL Hct 35.6 L (39.0-53.0) % MCV (80.0-100.0) fL MCHC 30.4 L (31.0-37.0) g/dL RDW 18.2 H (11.5-15.5) % PT (9.0-12.0) sec INR (<1.2) Sodium (137-145) mmol/L Potassium (3.5-5.1) mmol/L Chloride (98-107) mmol/L Carbon Dioxide (22-30) mmol/L BUN (9-20) mg/dL Creatinine (0.66-1.25) mg/dL Glucose (74-99) mg/dL POC Glucose (mg/dL) 307 H 230 H (75-99) mg/dL Calcium (8.4-10.2) mg/dL Phosphorus (2.5-4.5) mg/dL AST (17-59) U/L Alkaline Phosphatase (38-126) U/L Urine Protein (Negative) Urine Glucose (UA) (Negative) Urine Blood (Negative) Ur Leukocyte Esterase (Negative) Urine WBC (0-5) /hpf Urine Bacteria (None) /hpf Urine Mucus (None) /hpf 04/13/21 04/13/21 Range/Units 07:22 09:14 RBC (4.30-5.90) m/uL Hgb (13.0-17.5) gm/dL Hct (39.0-53.0) % MCV (80.0-100.0) fL MCHC (31.0-37.0) g/dL RDW (11.5-15.5) % PT (9.0-12.0) sec INR (<1.2) Sodium (137-145) mmol/L Potassium (3.5-5.1) mmol/L Chloride (98-107) mmol/L Carbon Dioxide (22-30) mmol/L BUN 54 H (9-20) mg/dL Creatinine 8.96 H* (0.66-1.25) mg/dL Glucose 130 H (74-99) mg/dL POC Glucose (mg/dL) 137 H (75-99) mg/dL Calcium 7.9 L (8.4-10.2) mg/dL Phosphorus 7.4 H (2.5-4.5) mg/dL AST (17-59) U/L Alkaline Phosphatase 206 H (38-126) U/L Urine Protein (Negative) Urine Glucose (UA) (Negative) Urine Blood (Negative) Ur Leukocyte Esterase (Negative) Urine WBC (0-5) /hpf Urine Bacteria (None) /hpf Urine Mucus (None) /hpf Assessment and Plan Assessment: This is a 46-year-old male with past medical history noted below who presented to the emergency room with a syncopal episode and questionable seizure. Patient was evaluated in the ER and admitted to the hospital for further management of his medical problems noted below. 1. Recurrent dizziness and syncopal episode, exact etiology unclear. Initially thought to be attributed to orthostatic hypotension that was ruled out during last admission. Patient is maintained on midodrine. His most recent echocardiogram showed preserved ejection fraction and no significant valvular abnormalities. Patient has severe right ventricular strain secondary to und erlying PE. Cardiology consulted. Plan for event monitor. 2. Suspected seizure disorder, seen and evaluated by neurology. Started on Keppra. Computed tomography scan of the head with no acute findings. Awaiting MRI and EEG results 3. Recently diagnosed bilateral PE with right ventricular strain status post EKOS during previous admission. On anticoagulation with Rivaroxaban. Patient was seen and evaluated by vascular surgery during last 2 admissions. No further recommendations 4. End stage renal disease on hemodialysis, nephrology consulted 5. Type 2 diabetes on insulin pump. We will continue to monitor blood glucose closely 6. History of right below knee amputation 7. Morbid obesity
[2021-04-13] MEDS: CALCIUM ACETATE 667 MG TAB PO SCH ×2 (12:11→16:59)
[2021-04-13] MEDS ORDERED: INSULIN LISPRO 100 UNIT/ML SQ PRN ×2 (12:14→12:16)
[2021-04-13 12:41] LABS: Glucose,Whole Blood 174 mg/dL (75-99)
--- NOTE | 2021-04-13 16:10 | EEG ---
ELECTROENCEPHALOGRAM REPORT DATE OF SERVICE: 04/13/2021. CLINICAL HISTORY: This is a 46-year-old gentleman with recurrent syncopal episodes. This video EEG is obtained to evaluate for seizure epileptiform activity. RELEVANT MEDICATION: Keppra. EEG TYPE: A routine 21 channel EEG is performed with video using the 10/20 electrode placement. DESCRIPTION: Wakefulness and drowsiness are obtained. During wakefulness, there is a positive dominant rhythm of low to moderate voltage, well modulated, well sustained 8.5 hertz activity. During drowsiness, there is slowing and attenuation of the background activity. There is no physiological stage II sleep. There is no focal slowing. Interictal and ictal are none. ACTIVATION PROCEDURES: Photic stimulation did not evoke a posterior driving response. Hyperventilation is not performed. CLINICAL INTERPRETATION: This is a normal routine EEG. There are no focal slowing, epileptiform discharges or seizure on the EEG. Clinical correlation is recommended. MMLARS / ODESSAN: [id number] / [id number]
[2021-04-13 16:28] LABS: Folate, Serum >24.0 ng/mL
--- NOTE | 2021-04-13 17:21 | CONS ---
CONSULTATION HISTORY OF PRESENT ILLNESS: Checo Bill is a 46-year-old gentleman a patient who had a massive pulmonary embolism on March 19 and had a ECOS ultrasound guided thrombolytic therapy. However, he came in with an episode of syncope. This gentleman tells me that he felt dizzy, lightheaded and came in last night. He had an episode of passing out and prior to that he was feeling dizzy and lightheaded. He was trying to transfer from a chair to the bed and he has a right below-knee amputation. After this, he passed out and also he was incontinent of urine as well. Clinical picture does not rule out cardiac syncope, but seizure also should be considered as a possibility. He has history of pulmonary embolism. He has saw Dr. Freed in the hospital and subsequently went on to have a CT angio diagnosed pulmonary embolism for which he received ECOS and did well. He has significant right ventricular strain pattern as well at that time. Since arrival, patient remains in sinus rhythm. He has not had a tachy or Donnell arrhythmias and seems to be doing well. EKG revealed a sinus mechanism with right ventricular with an incomplete right bundle branch block pattern and a strain pattern. Patient, at the time of my evaluation, is resting comfortably without any significant symptoms. This patient has end-stage renal disease on hemodialysis. PAST MEDICAL HISTORY: 1. Diabetes with end-stage renal disease on hemodialysis. 2. Gastroesophageal reflux disease. 3. Recent episode of pulmonary embolism. 4. History of orthostatic hypotension for which he was on midodrine. 5. He is status post cataract surgery in the past. MEDICATIONS: Medications at home include: Atorvastatin, insulin pump, omeprazole, Lasix, Reglan, midodrine 10 mg t.i.d., Zofran, Xarelto 20 mg daily for his pulmonary embolism management. ALLERGIES: None. PHYSICAL EXAMINATION: On examination, blood pressure is 110/70, pulse rate is 70 per minute, appears to be regular. HEENT unremarkable. Fundus was not examined by me. Neck is supple. JVD is 1 cm. No carotid bruit. Heart exam reveals S1, S2 heard normally. Distant heart sound, short systolic murmur. LUNGS revealed bilateral decent air entry. ABDOMEN: Soft. Lower extremities reveal evidence of below-knee amputation on the right. Central nervous system grossly within normal limits. IMPRESSION: 1. Episodes of reported syncope. Cannot exclude cardiogenic syncope but seizure is also an important consideration given his incontinence and I would recommend neurology evaluation. 2. Hypertension. 3. End-stage renal disease on hemodialysis. 4. Recent episode of pulmonary embolism. 5. History of orthostatic hypotension. RECOMMENDATIONS: I would recommend that we continue current medical regimen. Continue telemetry monitoring. Seek neurology input for possibility of this being an episode of seizure. Based on clinical course, I will make further recommendations. We will probably place an event monitor prior to discharge as well. I discussed my thoughts in detail with the patient. Thank you very much for the consult. DIANDRA / ODESSAN: [id number] /
[2021-04-13 17:39] LABS: Glucose,Whole Blood 246 mg/dL (75-99)
[2021-04-13 19:39] LABS: Glucose,Whole Blood 247 mg/dL (75-99)
[2021-04-13] MEDS: ATORVASTATIN 40 MG TAB PO SCH (20:36)
[2021-04-13] MEDS: levETIRAcetam 500 MG TAB PO SCH (20:36)
[2021-04-13 21:14] LABS: Glucose,Whole Blood 271 mg/dL (75-99)
[2021-04-14] MEDS: MIDODRINE 5 MG TAB PO SCH ×3 (06:28→16:50)
[2021-04-14] MEDS: CALCIUM ACETATE 667 MG TAB PO SCH ×3 (06:28→16:50)
[2021-04-14] MEDS: PANTOPRAZOLE 40 MG TABLET PO SCH (06:28)
[2021-04-14] MEDS: METOCLOPRAMIDE 5 MG TAB PO SCH ×3 (06:28→16:50)
[2021-04-14 08:12] LABS: Glucose,Whole Blood 272 mg/dL (75-99)
[2021-04-14] MEDS: levETIRAcetam 500 MG TAB PO SCH ×2 (08:48→20:32)
[2021-04-14] MEDS: RIVAROXABAN 20 MG TAB PO SCH (08:48)
[2021-04-14] MEDS: PREGABALIN 100 MG CAP PO SCH ×3 (08:48→20:32)
[2021-04-14] MEDS: FUROSEMIDE 80 MG TAB PO SCH ×2 (08:48→20:31)
[2021-04-14] MEDS: FOLIC ACID-VIT B COMPLEX-VIT C 1 CAP PO SCH (08:48)
[2021-04-14] MEDS: TIMOLOL 0.5% OPHTH DROPS 5 ML BTL RIGHT EYE SCH ×2 (08:49→20:33)
[2021-04-14] MEDS: INSULIN PUMP MEAL BOLUS 1 UNIT MISC MISCELLANE SCH ×4 (08:50→20:32)
--- NOTE | 2021-04-14 09:59 | P.PN ---
Subjective Progress Note Date: 04/14/21 The patient was seen at bedside and he stated that he is doing well. Per the patient's nurse that had him yesterday, notified me that yesterday just immediately after getting the orthostatic vital signs he had an episode where he had tremor of all extremities but opened to her eyes upon asking him. She d enies him having any foaming around the mouth, gaze deviation. The episode lasted for 15 seconds and was responsive immediately after the episode. His blood pressure did not drop and nothing was found on telemetry. Objective - Vital Signs Vital signs: Vital Signs Temp 97.9 F 04/14/21 04:00 Pulse 78 04/14/21 04:00 Resp 18 04/14/21 04:00 BP 119/70 04/14/21 04:00 Pulse Ox 97 04/14/21 04:00 Intake & Output 04/13/21 04/14/21 04/14/21 18:59 06:59 18:59 Intake Total 640 480 Output Total 1999 125 Balance -1360 355 Weight 101 kg Intake: Intake, IV Titration 100 Amount levETIRAcetam IV 1,000 mg 100 In Saline 1 100ml.bag @ 400 mls/hr IVPB ONCE STA Rx#:[id number] Oral 540 480 Output: Urine 125 Hemodialysis 1999 - Exam GENERAL: The patient is lying in bed and is not in acute distress. NEUROLOGICAL: Higher mental function: The patient is awake, alert, oriented to self, place and time. Patient is following commands. No aphasia and no neglect. Cranial nerves: The pupils are round, equal and reactive to light and accommodation. Visual martinez are full to confrontation throughout. Extraocular movement is intact no nystagmus is noted. Facial sensation is normal to touch throughout. The facial strength is normal throughout. Hearing is normal bilaterally to hand rub. Tongue is midline and moved [id number] without any difficulty. No dysarthria is noted. Shoulder shrug is normal bilaterally. Motor: Gait is deferred. The strength is 5 over 5 throughout. He has right below knee amputation. Normal tone and bulk. Cerebellum: Normal finger to nose bilaterally. Sensation: Sensation is normal to touch throughout. Reflexes (right/left): 2+ throughout uppers while 1+ in lowers. Has right below knee amputation. Plantars is downgoing over the left. Amputated below right knee. WORK-UP: * Routine EEG on 04/13/2021 is normal * Orthostatic: Supine is a blood pressure of 114/76 with a heart rate of an 86 and standing is 104/65 with a heart rate 94. Per the nurse patient had an episode of syncopal just right after orthostatic. * Continue Keppra 500 mg every 12 hours for seizure prophylaxis. * Vitamin B12: 451 which is considered within normal limits in the folate serum is more than 24 which is also considered within normal limits. - Labs CBC & Chem 7: 04/13/21 07:22 04/13/21 07:22 Labs: Abnormal Lab Results - Last 24 Hours (Table) 04/13/21 04/13/21 04/13/21 Range/Units 07:22 07:22 09:14 RBC 3.71 L (4.30-5.90) m/uL Hgb 10.8 L (13.0-17.5) gm/dL Hct 35.6 L (39.0-53.0) % MCHC 30.4 L (31.0-37.0) g/dL RDW 18.2 H (11.5-15.5) % BUN 54 H (9-20) mg/dL Creatinine 8.96 H* (0.66-1.25) mg/dL Glucose 130 H (74-99) mg/dL POC Glucose (mg/dL) 137 H (75-99) mg/dL Calcium 7.9 L (8.4-10.2) mg/dL Phosphorus 7.4 H (2.5-4.5) mg/dL Alkaline Phosphatase 206 H (38-126) U/L 04/13/21 04/13/21 04/13/21 Range/Units 12:38 17:37 19:38 RBC (4.30-5.90) m/uL Hgb (13.0-17.5) gm/dL Hct (39.0-53.0) % MCHC (31.0-37.0) g/dL RDW (11.5-15.5) % BUN (9-20) mg/dL Creatinine (0.66-1.25) mg/dL Glucose (74-99) mg/dL POC Glucose (mg/dL) 174 H 246 H 247 H (75-99) mg/dL Calcium (8.4-10.2) mg/dL Phosphorus (2.5-4.5) mg/dL Alkaline Phosphatase (38-126) U/L 04/13/21 Range/Units 21:10 RBC (4.30-5.90) m/uL Hgb (13.0-17.5) gm/dL Hct (39.0-53.0) % MCHC (31.0-37.0) g/dL RDW (11.5-15.5) % BUN (9-20) mg/dL Creatinine (0.66-1.25) mg/dL Glucose (74-99) mg/dL POC Glucose (mg/dL) 271 H (75-99) mg/dL Calcium (8.4-10.2) mg/dL Phosphorus (2.5-4.5) mg/dL Alkaline Phosphatase (38-126) U/L Assessment and Plan Assessment: * Syncope with episode with reported flailing of all extremities and urine incontinence, eye rolling of back: Possibly seizure (but seems atypical of why he started developing this after recent PE s/p EKOS recently). I feel consideration is orthostatic vs vasovagal vs autonomic dysfunction. (or thostatic vs ?hypoxia leading to these events especially since recurrent and are positional since having recent PE with EKOS and prolonged history of diabetes mellitus causing autonomic dysfunction. * His episode during the hospital witnessed by nurse lasting 15 seconds with tremor of all extremities after orthostatic and immediately responsive afterward (his blood pressure did not drop). Is atypical for seizure to be responsive immediately after episode. * Recurrent episodes of syncopal episodes with feeling light headed and dizzy (that seems positional). Possibly autonomic dysfunction (from long standing of DM vs orthostatic (previous orthostatic negative and is on Midodrine). Rule out cardiac in etiology. * Recently diagnosed bilateral pulmonary embolism with right ventricular strain status post EKOS on last admission. On Rivaroxaban. * Possible urinary tract infection * End-stage renal disease on hemodialysis * Type 2 diabetes on insulin pump that presents with uncontrolled sugar * History of right below-knee amputation (after injury to ankle) Plan: * Pending MRI of the brain to be done. Ordered carotid duplex. * I ordered 2-1/2 hour prolonged outpatient EEG to capture these episode. * Ordered tilt table test. * Will attempt to redo the orthostatics again once patient is stable. * On seizure precaution as well as pads. * Every 4 hours neuro checks. * On continous cardiac monitoring * Recommend an event monitor or loop recorder as an outpatient. * Cardiology is consulted * Nephrology is consulted. * Will defer the rest of medical management to the primary team. Because of the syncopal episode the patient cannot drive for 6 month per [employer]. He is to avoid heights, using heavy machinery or swimming unassisted. The plan is discussed with the patient's nurse. Ankush Lassiter MD Neuro-Hospitalist. Time with Patient: Less than 30
--- NOTE | 2021-04-14 12:46 | MR ---
EXAMINATION TYPE: MR brain wo con DATE OF EXAM: 04/14/2021 COMPARISON: None HISTORY: Possible seizure. Having recurrent syncope. Multiplanar multiecho imaging of the brain was performed without contrast. Ventricles have normal size. There is no mass effect nor midline shift. There is no sign of intracran ial hemorrhage. Diffusion images show no evidence of an acute infarct. There is some cerebral cortica l atrophy. On the T2 and FLAIR images there are numerous tiny foci of increased signal at the waggoner-wh ite matter junction of both cerebral hemispheres. Total number is approximately 25. These measure mos tly up to 2 mm. The brainstem is intact. Corpus callosum is intact. Sella turcica appears normal. The re is no evidence of a cortical infarct. There is mucus retention cyst left maxillary sinus. IMPRESSION: Mild cerebral atrophy. Multiple peripheral white matter very small high signal foci could relate to m icrovascular ischemia. No acute intracranial abnormality.
--- NOTE | 2021-04-14 13:11 | P.PN ---
Subjective Progress Note Date: 04/14/21 No acute events overnight Objective - Vital Signs Vital signs: Vital Signs Temp 97.7 F 04/14/21 08:00 Pulse 76 04/14/21 08:00 Resp 16 04/14/21 08:00 BP 113/73 04/14/21 08:00 Pulse Ox 97 04/14/21 04:00 Intake & Output 04/13/21 04/14/21 04/14/21 18:59 06:59 18:59 Intake Total 640 480 Output Total 1999 125 Balance -1360 355 Weight 101 kg Intake: Intake, IV Titration 100 Amount levETIRAcetam IV 1,000 mg 100 In Saline 1 100ml.bag @ 400 mls/hr IVPB ONCE STA Rx#:[id number] Oral 540 480 Output: Urine 125 Hemodialysis 1999 - Exam General: The patient is awake and alert, in no distress Eye: there is normal conjunctiva bilaterally. Neck: The neck is supple, there is no JVD. Cardiovascular: Normal S1-S2, no S3-S4, no murmurs. Respiratory: Lungs clear to auscultation bilaterally Gastrointestinal: Abdomen is soft, nontender Musculoskeletal: There is no pedal edema. There is a right BKA Neurological:. Speech is normal. Skin: Skin is warm and dry - Labs CBC & Chem 7: 04/13/21 07:22 04/13/21 07:22 Labs: Abnormal Lab Results - Last 24 Hours (Table) 04/13/21 04/13/21 04/13/21 Range/Units 17:37 19:38 21:10 POC Glucose (mg/dL) 246 H 247 H 271 H (75-99) mg/dL 04/14/21 Range/Units 08:09 POC Glucose (mg/dL) 272 H (75-99) mg/dL Assessment and Plan Assessment: This is a 46-year-old male with past medical history noted below who presented to the emergency room with a syncopal episode and questionable seizure. Patient was evaluated in the ER and admitted to the hospital for further management of his medical problems noted below. 1. Recurrent dizziness and syncopal episode: Orthostatic blood pressure checked and negative. Patient is maintained on midodrine. His most recent echocardiogram showed preserved ejection fraction and no significant valvular abnormalities. Patient has severe right ventricular strain secondary to underlying PE. Cardiology consulted. Plan for event monitor and tilt table testing as outpatient. 2. Suspected seizure disorder, seen and evaluated by neurology. Started on Keppra for prophylaxis. Awaiting EEG. Computed tomography scan of the head with no acute findings. MRI was unremarkable for acute findings. Small area of microvascular ischemia noted. 3. Recently diagnosed bilateral PE with right ventricular strain status post EKOS during previous admission. On anticoagulation with Rivaroxaban. Patient was seen and evaluated by vascular surgery during last 2 admissions. No further recommendations 4. End stage renal disease on hemodialysis, nephrology following closely 5. Type 2 diabetes on insulin pump. We will continue to monitor blood glucose closely 6. History of right below knee amputation 7. Morbid obesity
[2021-04-14 13:47] LABS: Glucose,Whole Blood 180 mg/dL (75-99)
--- NOTE | 2021-04-14 14:06 | US ---
EXAMINATION TYPE: US carotid duplex BILAT DATE OF EXAM: 04/14/2021 COMPARISON: CLINICAL HISTORY: syncopal episode. Poor historian= Patient was sleeping and couldn't stay awake EXAM MEASUREMENTS: RIGHT: Peak Systolic Velocity (PSV) cm/sec ----- Right CCA: 39.2 ----- Right ICA: 44.1 ----- Right ECA: 50.5 ICA/CCA ratio: 1.1 RIGHT: End Diastole cm/sec ----- Right CCA: 12.1 ----- Right ICA: 19.1 ----- Right ECA: 7.8 LEFT: Peak Systolic Velocity (PSV) cm/sec ----- Left CCA: 44.3 ----- Left ICA: 42.6 ----- Left ECA: 57.6 ICA/CCA ratio: 1.0 LEFT: End Diastole cm/sec ----- Left CCA: 9.3 ----- Left ICA: 17.7 ----- Left ECA: 9.9 VERTEBRALS (direction of flow): Right Vertebral: Antegrade Left Vertebral: Antegrade Rhythm: Normal No elevated velocities, wall thickening or stenosis. Plaque seen in left bulb. Incidental finding: Proximal and mid left IJV thrombosis visualized. IMPRESSION: Minimal plaque formation. No evidence of hemodynamic stenosis. Images and measurements suggest less t moore 10 % stenosis in both internal carotid arteries. There is thrombus demonstrated in the left side internal jugular vein. Criteria for Assigning % of Stenosis / Diameter reduction (Estimation based on the indirect measurements of the internal carotid artery velocities (ICA PSV). 1. Normal (no stenosis)=ICA PSV < 125 cm/s: ratio < 2.0: ICA EDV<40 cm/s. 2. Less than 50% stenosis=ICA PSV < 125 cm/s: ratio < 2.0: ICA EDV<40 cm/s. 3. 50 to 69% stenosis=ICA PSV of 125 to 230 cm/s: ration 2.0 ? 4.0: ICA EDV 40-100 cm/s. 4. Greater than 70% stenosis to near occlusion= ICA PSV > 230 cm/s: ratio > 4.0: ICA EDV > 100 cm/s. 5. Near occlusion= ICA PSV velocities may be low or undetectable: variable ratio and ICA EDV. 6. Total occlusion=unable to detect flow.
--- NOTE | 2021-04-14 14:13 | PN ---
PROGRESS NOTE Patient is seen for followup for end-stage renal disease. He was admitted to the hospital with another episode of syncope. He is being followed by Neurology. There is no evidence of seizures. Patient's blood pressure has been low, however, this is not new. He does have a history of bilateral PE, however, he is maintained on anticoagulation and has not had any further episodes and has not had any chest pains or episodes of hypoxia. PHYSICAL EXAMINATION: On examination today, blood pressure was 119/70, heart rate 78 per minute, he is afebrile. Examination of the heart S1, S2. Examination of the lungs, bilateral breath sounds are heard. Abdomen is soft, obese. Exam of lower extremities shows no significant edema noted. The patient has right BKA. CLOTH HAND exam grossly intact. LAB: Show hemoglobin 10.8 from 04/13/2021. Sodium 138, potassium 3.8, BUN 54, creatinine 8.9, phosphorus 7.4. ASSESSMENT: 1. End-stage renal disease, maintained on home hemodialysis. 2. Syncope, etiology unclear, possibly related to hypotension. Patient had been significantly volume overloaded as outpatient last week and was advised to increase ultrafiltration as outpatient. His volume status appears to have improved. No evidence of seizures. Patient is being followed by Neurology. 3. History of recent pulmonary embolism bilaterally, maintained on Xarelto and status post EKOS procedure. 4. 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 5. Volume overload, currently improved. PLAN: Next dialysis will be on 04/16/2021. Continue with the midodrine. I will increase the midodrine to 4 times a day. MMBRENNANL / ODESSAN: [id number] /
[2021-04-14 17:23] LABS: Glucose,Whole Blood 256 mg/dL (75-99)
--- NOTE | 2021-04-14 19:56 | PN ---
PROGRESS NOTE DATE OF SERVICE: 04/14/2021. HISTORY: Mr. Bill' presentation is more suggestive of a seizure disorder. He has not had any tachy or bradyarrhythmia. He is doing well from a cardiac standpoint. He had recent pulmonary embolism with right ventricle enlargement. PHYSICAL EXAM: Vitals are stable. No JVD. S1-S2 heard normally. Heart sounds are distant. Lungs revealed decent air entry. Abdomen exam unchanged. PLAN: Patient has no significant orthostatic changes. He is on Keppra now started by the neurologist. He can. He should follow up from a neurology standpoint. No further intervention from a cardiac standpoint. We will continue telemetry for now. MMODL / IJN: [id number] /
[2021-04-14 20:30] LABS: Glucose,Whole Blood 202 mg/dL (75-99)
[2021-04-14] MEDS: ATORVASTATIN 40 MG TAB PO SCH (20:31)
[2021-04-14] MEDS: oxyCODONE-APAP 10-325MG 1 EACH TAB PO PRN (20:36)
[2021-04-14 22:43] LABS: Glucose,Whole Blood 211 mg/dL (75-99)
[2021-04-15 01:23] LABS: Glucose,Whole Blood 179 mg/dL (75-99)
[2021-04-15] MEDS: oxyCODONE-APAP 10-325MG 1 EACH TAB PO PRN ×2 (04:19→09:32)
[2021-04-15] MEDS: CALCIUM ACETATE 667 MG TAB PO SCH ×2 (06:32→12:45)
[2021-04-15] MEDS: PANTOPRAZOLE 40 MG TABLET PO SCH (06:32)
[2021-04-15] MEDS: MIDODRINE 5 MG TAB PO SCH ×2 (06:32→12:45)
[2021-04-15] MEDS: METOCLOPRAMIDE 5 MG TAB PO SCH ×2 (06:33→12:45)
[2021-04-15] MEDS: FUROSEMIDE 80 MG TAB PO SCH (08:26)
[2021-04-15] MEDS: levETIRAcetam 500 MG TAB PO SCH (08:26)
[2021-04-15] MEDS: FOLIC ACID-VIT B COMPLEX-VIT C 1 CAP PO SCH (08:26)
[2021-04-15] MEDS: PREGABALIN 100 MG CAP PO SCH (08:26)
[2021-04-15] MEDS: RIVAROXABAN 20 MG TAB PO SCH (08:26)
[2021-04-15] MEDS: TIMOLOL 0.5% OPHTH DROPS 5 ML BTL RIGHT EYE SCH (08:29)
[2021-04-15 08:30] VITALS: RESP 16; TEMP 98.2
[2021-04-15 09:01] LABS: Glucose,Whole Blood 209 mg/dL (75-99)
[2021-04-15] MEDS: INSULIN PUMP MEAL BOLUS 1 UNIT MISC MISCELLANE SCH ×2 (09:32→12:30)
--- NOTE | 2021-04-15 11:56 | PN ---
PROGRESS NOTE Mr. Bill is in sinus rhythm, comfortable. Has no orthostatic changes. No further episodes of seizures or syncope. He is being followed by Neurology as well. I am recommending an event monitor and the patient can be discharged. He has multiple comorbid conditions including end-stage renal disease on dialysis, recent episode of pulmonary embolism, well anticoagulated. His LV function is well preserved, but right ventricle is enlarged. RECOMMENDATIONS: I am recommending that we continue current medications, increase activity, and the patient can be discharged whenever okay by the admitting physician. There is a question of seizure disorder and Keirenara has also been initiated. MMODL / IJN: [id number] /
[2021-04-15 12:49] VITALS: BP 128/86; PULSE 81
[2021-04-15 12:55] LABS: Glucose,Whole Blood 180 mg/dL (75-99)
--- NOTE | 2021-04-15 13:22 | PN ---
PROGRESS NOTE The patient is seen for followup for end-stage renal disease. This morning he is comfortable. Denies any significant complaints. EXAMINATION: Today blood pressure was 137/93, heart rate of 77 per minute. He is afebrile. Examination of the heart S1, S2. Examination of the lungs, bilateral breath sounds are heard. Abdomen: Soft, nontender, obese. Examination of lower extremities shows no significant edema. Patient has right BKA. [employer] exam grossly intact. LABS: Show no recent labs available. On April 13: hemoglobin was 10.8, potassium 3.8, creatinine 8.9. ASSESSMENT: 1. End-stage renal disease, on home hemodialysis, currently maintained on a Friday, Friday, Friday schedule. 2. Syncope, etiology unclear, possible seizures, started on Keppra. The patient states that his son has seizures as well with similar presentation. He is currently being followed by Neurology. 3. History of recent pulmonary embolism bilaterally, maintained on Xarelto, status post ECOS procedure. 4. 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 5. Volume overload now improved. PLAN: Hemodialysis in a.m. Continue with midodrine increased to q.6 hours. MMODL / IJN: [id number] /
--- NOTE | 2021-04-15 13:27 | P.DS ---
Providers Date of admission: 04/12/21 16:34 Expected date of discharge: 04/15/21 Attending physician: Richelle Fernandez Consults: 04/12/21 16:36 Consult Physician Routine Consulting Provider: Ankush Lassiter Consult Reason/Comments: syncope, possible new onset seizure Do you want consulting provider notified?: Yes Consult Physician Routine Consulting Provider: Jinny Cope Consult Reason/Comments: esrf Do you want consulting provider notified?: Yes 04/12/21 17:48 Consult Physician Routine Consulting Provider: Michelle Thomas Consult Reason/Comments: Recurrent syncope Do you want consulting provider notified?: Yes Primary care physician: Baldev Ayers MD Hospital Course: This is a 46-year-old male with past medical history noted below who presented to the emergency room with a syncopal episode and questionable seizure. Patient was evaluated in the ER and admitted to the hospital for further management of his medical problems noted below. 1. Recurrent dizziness and syncopal episode: Orthostatic blood pressure checked and negative. Patient is maintained on midodrine. His most recent echocardiogram showed preserved ejection fraction and no significant valvular abnormalities. Patient has severe right ventricular strain secondary to underlying PE. Cardiology consulted. Plan for tilt table testing as outpatient. 2. Suspected seizure disorder, seen and evaluated by neurology. Started on Keppra for prophylaxis. Patient had a prolonged EEG that was normal. Computed tomography scan of the head with no acute findings. MRI was unremarkable for ac simran findings. Small area of microvascular ischemia noted. 3. Recently diagnosed bilateral PE with right ventricular strain status post EKOS during previous admission. On anticoagulation with Rivaroxaban. Patient was seen and evaluated by vascular surgery during last 2 admissions. No further recommendations 4. End stage renal disease on hemodialysis, nephrology following closely 5. Type 2 diabetes on insulin pump. We will continue to monitor blood glucose closely 6. History of right below knee amputation Patient will be discharged home in a stable condition. Patient Condition at Discharge: Fair Plan - Discharge Summary Discharge Rx Participant: No New Discharge Prescriptions: New levETIRAcetam [Keppra] 500 mg PO Q12HR #60 tab Continue Ergocalciferol [Vitamin D2 (DRISDOL)] 50,000 unit PO Q14D Atorvastatin [Lipitor] 40 mg PO HS Dialyvite 1 tab PO DAILY Timolol [Betimol 0.5% Ophth Soln] 1 drop RIGHT EYE BID Omeprazole [PriLOSEC] 20 mg PO BID INSULIN LISPRO (For Pump) [humaLOG (For Pump)] 0.01 units SQ-PUMP CONTINUOUS Furosemide [Lasix] 80 mg PO BID oxyCODONE-APAP 10-325MG [Percocet 10-325 mg] 1 tab PO Q6H Pregabalin [Lyrica] 200 mg PO TID Ondansetron HCl [Zofran] 4 mg PO BID Rivaroxaban [Xarelto] 20 mg PO DAILY Midodrine HCl [ProAmatine] 10 mg PO TID Metoclopramide [Reglan] 5 mg PO TID-W/MEALS Heparin Sodium,Porcine [Heparin Sodium] 64,000 units MISCELLANE MOTUWEFRSA Discharge Medication List Atorvastatin [Lipitor] 40 mg PO HS 01/31/17 [History] Dialyvite 1 tab PO DAILY 01/31/17 [History] Ergocalciferol [Vitamin D2 (DRISDOL)] 50,000 unit PO Q14D 01/31/17 [History] INSULIN LISPRO (For Pump) [humaLOG (For Pump)] 0.01 units SQ-PUMP CONTINUOUS 01/31/17 [History] Omeprazole [PriLOSEC] 20 mg PO BID 01/31/17 [History] Timolol [Betimol 0.5% Ophth Soln] 1 drop RIGHT EYE BID 01/31/17 [History] Furosemide [Lasix] 80 mg PO BID 10/01/20 [History] Pregabalin [Lyrica] 200 mg PO TID 10/01/20 [History] oxyCODONE-APAP 10-325MG [Percocet 10-325 mg] 1 tab PO Q6H 10/01/20 [History] Heparin Sodium,Porcine [Heparin Sodium] 64,000 units MISCELLANE MOTUWEFRSA 03/16/21 [History] Metoclopramide [Reglan] 5 mg PO TID-W/MEALS 03/16/21 [History] Midodrine HCl [ProAmatine] 10 mg PO TID 03/16/21 [History] Ondansetron HCl [Zofran] 4 mg PO BID 03/16/21 [History] Rivaroxaban [Xarelto] 20 mg PO DAILY 04/12/21 [History] levETIRAcetam [Keppra] 500 mg PO Q12HR #60 tab 04/15/21 [Rx] Follow up Appointment(s)/Referral(s): Francis Pimentel MD [STAFF PHYSICIAN] - 2 Weeks Baldev Ayers MD [Primary Care Provider] - 1-2 days Patient Instructions/Handouts: Seizure/Epilepsy Discharge Instructions & Follow-Up Activity/Diet/Wound Care/Special Instructions: [facility] - [phone] Home Care - [facility] - Discharge Disposition: HOME WITH HOME HEALTH SERVICES
--- NOTE | 2021-04-15 14:22 | P.PN ---
Subjective Progress Note Date: 04/15/21 The patient is seen at bedside and patient has not had any further syncopal episodes per the patient and his nurse. Patient wants to be discharged home and wants the tilt table test as outpatient. Objective - Vital Signs Vital signs: Vital Signs Temp 98.2 F 04/15/21 08:00 Pulse 81 04/15/21 12:00 Resp 16 04/15/21 08:00 BP 128/86 04/15/21 12:00 Pulse Ox 97 04/15/21 08:00 Intake & Output 04/14/21 04/15/21 04/15/21 18:59 06:59 18:59 Intake Total 118 598 Output Total 50 320 Balance 68 278 Weight 110 kg Intake: Oral 118 598 Output: Urine 50 320 - Exam GENERAL: The patient is lying in bed and is not in acute distress. NEUROLOGICAL: Higher mental function: The patient is awake, alert, oriented to self, place and time. Patient is following commands. No aphasia and no neglect. Cranial nerves: The pupils are round, equal and reactive to light and accommodation. Visual martinez are full to confrontation throughout. Extraocular movement is intact no nystagmus is noted. Facial sensation is normal to touch throughout. The facial strength is normal throughout. Hearing is normal bilaterally to hand rub. Tongue is midline and moved [id number] without any difficulty. No dysarthria is noted. Shoulder shrug is normal bilaterally. Motor: Gait is deferred. The strength is 5 over 5 throughout. He has right below knee amputation. Normal tone and bulk. Cerebellum: Normal finger to nose bilaterally. Sensation: Sensation is normal to touch throughout. Reflexes (right/left): 2+ throughout uppers while 1+ in lowers. Has right below knee amputation. Plantars is downgoing over the left. Amputated below right knee. WORK-UP: * Routine EEG on 04/13/2021 is normal * Orthostatic: Supine is a blood pressure of 114/76 with a heart rate of an 86 and standing is 104/65 with a heart rate 94. Per the nurse patient had an episode of syncopal just right after orthostatic. * Continue Keppra 500 mg every 12 hours for seizure prophylaxis. * Vitamin B12: 451 which is considered within normal limits in the folate serum is more than 24 which is also considered within normal limits. * Bilateral carotid duplex was reported as minimal plaque formation. No evidence of hemodynamic stenosis. Images and measurements suggest less than 10% stenosis in both internal carotid arteries. There is thrombus demonstrated in the left internal jugular vein. * MR the brain is reported as mild cerebral atrophy. Multiple peripheral white matter very small high signal foci could relate to microvascular ischemia. No acute intracranial abnormality. - Labs CBC & Chem 7: 04/13/21 07:22 04/13/21 07:22 Labs: Abnormal Lab Results - Last 24 Hours (Table) 04/14/21 04/14/21 04/14/21 Range/Units 17:22 20:28 22:38 POC Glucose (mg/dL) 256 H 202 H 211 H (75-99) mg/dL 04/15/21 04/15/21 04/15/21 Range/Units 01:21 09:00 12:52 POC Glucose (mg/dL) 179 H 209 H 180 H (75-99) mg/dL Assessment and Plan Assessment: * Syncope with episode with reported flailing of all extremities and urine incontinence, eye rolling of back: Possibly seizure (but seems atypical of why he started developing this after recent PE s/p EKOS recently). I feel consideration is orthostatic vs vasovagal vs autonomic dysfunction. (orthostatic vs ?hypoxia leading to these events especially since recurrent and are positional since having recent PE with EKOS and prolonged history of diabetes mellitus causing autonomic dysfunction. * Had one episode during the hospital witnessed by nurse lasting 15 seconds with tremor of all extremities after orthostatic and immediately responsive afterward (his blood pressure did not drop). Is atypical for seizure to be responsive immediately after episode.--no further episode * Recurrent episodes of syncopal episodes with feeling light headed and dizzy (that seems positional). Possibly autonomic dysfunction (from long standing of DM vs orthostatic (previous orthostatic negative and is on Midodrine). Rule out cardiac in etiology. * Recently diagnosed bilateral pulmonary embolism with right ventricular strain status post EKOS on last admission. On Rivaroxaban. * Left internal jugualr vein thrombu (per primary team due to his access for dialysis and is already on anticoagulation). 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 * Ordered tilt table test. He wants it as outpatient. * Continue Keppra 500mg q12 hours and receiving an additional 500mg post dialysis. * On seizure precaution as well as pads. * Every 4 hours neuro checks. * On continous cardiac monitoring * Recommend an event monitor or loop recorder as an outpatient. * Cardiology is consulted * Nephrology is consulted. * Will defer the rest of medical management to the primary team. * Upon discharge, the patient was notified to follow-up with a neurologist as outpatient within 1-2 weeks. * Patient was notified because of the syncopal episode the patient cannot drive for 6 month per [place] DMV. He is to avoid heights, using heavy machinery or swimming unassisted. The plan is discussed with the patient's nurse. There is no further work-up Ankush Lassiter MD Neuro-Hospitalist. Time with Patient: Less than 30
[2021-04-16] MEDS ORDERED: levETIRAcetam 500 MG TAB PO SCH (14:00)
== END 2021-04-15 16:26 | disposition home health service (06) | DRG 100 ==
LOC: EC 10:56 → 3SCARD 16:34
PROVIDERS: ADMIT Internal Medicine; ATTEND Internal Medicine
PROC: 5A1D70Z Performance of Urinary Filtration, Intermittent, Less than 6 Hours Per Day (ICD-10-PCS; principal; 2021-04-13)
DX: G40.909 Epilepsy, unspecified, not intractable, without status epilepticus (principal); N18.6 End stage renal disease; Z68.42 Body mass index [BMI] 45.0-49.9, adult; E87.1 Hypo-osmolality and hyponatremia; I12.0 Hypertensive chronic kidney disease with stage 5 chronic kidney disease or end stage renal disease; J98.11 Atelectasis; Z20.822 Contact with and (suspected) exposure to COVID-19; E11.22 Type 2 diabetes mellitus with diabetic chronic kidney disease; D63.1 Anemia in chronic kidney disease; E11.65 Type 2 diabetes mellitus with hyperglycemia; E66.01 Morbid (severe) obesity due to excess calories; E78.5 Hyperlipidemia, unspecified; E83.39 Other disorders of phosphorus metabolism; E83.51 Hypocalcemia; E87.5 Hyperkalemia; E87.70 Fluid overload, unspecified; F41.9 Anxiety disorder, unspecified; G89.29 Other chronic pain; I45.10 Unspecified right bundle-branch block; I95.89 Other hypotension; E83.9 Disorder of mineral metabolism, unspecified; R32 Unspecified urinary incontinence; Z79.01 Long term (current) use of anticoagulants; Z79.4 Long term (current) use of insulin; Z79.899 Other long term (current) drug therapy; Z86.711 Personal history of pulmonary embolism; Z89.511 Acquired absence of right leg below knee; Z96.41 Presence of insulin pump (external) (internal); Z99.2 Dependence on renal dialysis; Z98.42 Cataract extraction status, left eye; Z98.41 Cataract extraction status, right eye; Z79.891 Long term (current) use of opiate analgesic
CPT/HCPCS: 36415; 70450; 70551; 71046; 80053; 81001; 82009; 82607; 82746; 83735; 83921; 84100; 84484; 85025; 85610; 85730; 87635; 90935; 93005; 93270; 93880; 94760; 95819; 96374; 99285

== ENCOUNTER → 2021-04-17 | Outpatient (CLI) | payer MEDICARE, OTHER | LOC: NEUROMAIN 06:48 | PROVIDERS: ATTEND Student in an Organized Health Care Education/Training Program | DX: G40.909 Epilepsy, unspecified, not intractable, without status epilepticus (principal) | CPT/HCPCS: 95713 ==

== ENCOUNTER 2021-05-14 11:02 | Inpatient (IN) | payer MEDICARE, OTHER ==
[2021-05-14] MEDS ORDERED: ACETAMINOPHEN TAB 500 MG TAB PO STA (11:32)
--- NOTE | 2021-05-14 11:32 | ED ---
Fever HPI - General Chief Complaint: Fever Stated Complaint: Fever Time Seen by Provider: 05/14/21 11:02 Source: patient, EMS, RN notes reviewed, old records reviewed Mode of arrival: EMS - History of Present Illness Initial Comments: This is a 46-year-old male was brought in by EMS today because of fever and lethargy. The patient is a dialysis patient was scheduled today is unclear exactly when the fever started is a history of seizures COVID-19 pancreatitis type 2 diabetes bilateral pulmonary emboli this past month. Patient himself is a poor historian he was noted per paramedics to have evidence of bilateral conjunctivitis. He was noted have an elevated temperature upon arrival. MD Complaint: fever, malaise - Related Data Home Medications Medication Instructions Recorded Confirmed Atorvastatin [Lipitor] 40 mg PO HS 01/31/17 05/14/21 Dialyvite 1 tab PO DAILY 01/31/17 05/14/21 Ergocalciferol [Vitamin D2 50,000 unit PO Q14D 01/31/17 05/14/21 (DRISDOL)] INSULIN LISPRO (For Pump) [humaLOG 0.01 units SQ-PUMP CONTINUOUS 01/31/17 05/14/21 (For Pump)] Omeprazole [PriLOSEC] 20 mg PO BID 01/31/17 05/14/21 Timolol [Betimol 0.5% Ophth Soln] 1 drop RIGHT EYE BID 01/31/17 05/14/21 Furosemide [Lasix] 80 mg PO BID 10/01/20 05/14/21 Pregabalin [Lyrica] 200 mg PO TID 10/01/20 05/14/21 oxyCODONE-APAP 10-325MG [Percocet 1 tab PO Q6H 10/01/20 05/14/21 10-325 mg] Heparin Sodium,Porcine [Heparin 64,000 units MISCELLANE MOTUWEFRSA 03/16/21 05/14/21 Sodium] Metoclopramide [Reglan] 5 mg PO TID-W/MEALS 03/16/21 05/14/21 Midodrine HCl [ProAmatine] 10 mg PO TID 03/16/21 05/14/21 Ondansetron HCl [Zofran] 4 mg PO BID PRN 03/16/21 05/14/21 Apixaban [Eliquis] 5 mg PO BID 05/14/21 05/14/21 Calcium Acetate [Phoslo] 667 mg PO DAILY 05/14/21 05/14/21 Previous Rx's Medication Instructions Recorded levETIRAcetam [Keppra] 500 mg PO Q12HR #60 tab 04/15/21 Allergies Allergy/AdvReac Type Severity Reaction Status Date / Time No Known Allergies Allergy Verified 04/12/21 12:43 Review of Systems ROS Statement: Those systems with pertinent positive or pertinent negative responses have been documented in the HPI. ROS Other: All systems not noted in ROS Statement are negative. Past Medical History Past Medical History: Diabetes Mellitus, Dialysis, GERD/Reflux, Hyperlipidemia, Pulmonary Embolus (PE), Renal Disease, Syncope Additional Past Medical History / Comment(s): constipation, anemia, History of Any Multi-Drug Resistant Organisms: None Reported Additional Past Surgical History / Comment(s): tom cataract, peritoneal dialysis catheter rt side, ECOS 03/19/21 Past Anesthesia/Blood Transfusion Reactions: No Reported Reaction Past Psychological History: Anxiety Smoking Status: Never smoker Past Alcohol Use History: None Reported Past Drug Use History: None Reported - Past Family History Mother Family Medical History: Cancer Father Family Medical History: Dementia General Exam - General Exam Comments Initial Comments: Is a well-developed obese male who was awake and alert but lethargic Limitations: physical limitation General appearance: alert, lethargic Eye exam: Present: PERRL, EOMI, other (Bilateral conjunctivitis with radicular drainage) ENT exam: Present: mucous membranes dry Neck exam: Present: normal inspection, full ROM, other (ALLERGIES. Bruits) Respiratory exam: Present: decreased breath sounds Cardiovascular Exam: Present: normal rhythm, tachycardia GI/Abdominal exam: Present: soft, normal bowel sounds. Absent: distended, tenderness, guarding, rebound, rigid Rectal exam: Present: deferred Extremities exam: Present: full ROM, other (Right side below the knee a mputation) Back exam: Present: normal inspection Neurological exam: Present: alert, oriented X3, CN II-XII intact Psychiatric exam: Present: normal affect, normal mood Skin exam: Present: warm, dry, intact, normal color. Absent: rash Course Vital Signs 05/14/21 05/14/21 05/14/21 11:04 11:59 12:59 Temperature 104 F H 99.8 F H Pulse Rate 105 H 110 H 104 H Respiratory 20 22 20 Rate Blood Pressure 115/35 134/96 73/26 O2 Sat by Pulse 100 90 L 93 L Oximetry 05/14/21 05/14/21 13:26 14:50 Temperature 98.0 F Pulse Rate 96 96 Respiratory 22 20 Rate Blood Pressure 75/28 82/39 O2 Sat by Pulse 92 L 96 Oximetry - Reevaluation(s) Reevaluation #1: 05/14/21 15:37 I did reevaluate patient several occasions patient did have a decline in his blood pressure. He is awake and alert on my conversing with them. Procedures - Sepsis Sepsis Focused Exam #1 Time Sepsis Criteria Met: 15:00 Sepsis Focused Exam Date: 05/14/21 Sepsis Focused Exam Time: 15:15 Sepsis Focused Exam Complete: Yes Vital Signs & RN Notes Reviewed: Yes Capillary Refill: < 2 Seconds: Fingers Peripheral Pulses: Weak: Radial (R), Radial (L) Skin Color: Normal for Patient Respiratory Exam: rhonchi, decreased breath sounds Cardiovascular Exam: regular rate, tachycardia Medical Decision Making - Medical Decision Making I did discuss the findings with Dr. Jimenez as well as Dr. Celeste and Dr. Cope. Patient will be admitted the presentation appears be sepsis pneumonias is considered as well as catheter infection patient was started on IV antibiotics and on low-dose pressors. - Lab Data Result diagrams: 05/14/21 11:32 05/14/21 11:32 Lab Results 05/14/21 05/14/21 05/14/21 Range/Units 11:32 11:32 11:32 WBC 21.6 H (3.8-10.6) k/uL RBC 3.60 L (4.30-5.90) m/uL Hgb 10.5 L (13.0-17.5) gm/dL Hct 33.4 L (39.0-53.0) % MCV 92.8 (80.0-100.0) fL MCH 29.3 (25.0-35.0) pg MCHC 31.6 (31.0-37.0) g/dL RDW 16.2 H (11.5-15.5) % Plt Count 89 L (150-450) k/uL MPV 13.9 Neutrophils % 87 % Lymphocytes % 8 % Monocytes % 2 % Eosinophils % 1 % Basophils % 0 % Neutrophils # 18.8 H (1.3-7.7) k/uL Lymphocytes # 1.8 (1.0-4.8) k/uL Monocytes # 0.5 (0-1.0) k/uL Eosinophils # 0.1 (0-0.7) k/uL Basophils # 0.1 (0-0.2) k/uL Manual Slide Review Performed Large Platelets Present Anisocytosis Slight Sodium 134 L (137-145) mmol/L Potassium 4.8 (3.5-5.1) mmol/L Chloride 99 (98-107) mmol/L Carbon Dioxide 18 L (22-30) mmol/L Anion Gap 17 mmol/L BUN 74 H (9-20) mg/dL Creatinine 10.70 H* (0.66-1.25) mg/dL Est GFR (CKD-EPI)AfAm 6 (>60 ml/min/1.73 sqM) Est GFR (CKD-EPI)NonAf 5 (>60 ml/min/1.73 sqM) Glucose 144 H (74-99) mg/dL Plasma Lactic Acid Steven (0.7-2.0) mmol/L Calcium 8.6 (8.4-10.2) mg/dL Magnesium 1.3 L (1.6-2.3) mg/dL Total Bilirubin 0.4 (0.2-1.3) mg/dL AST 41 (17-59) U/L ALT 20 (4-49) U/L Alkaline Phosphatase 146 H (38-126) U/L Creatine Kinase 440 H (55-170) U/L Troponin I (0.000-0.034) ng/mL NT-Pro-B Natriuret Pep 10376 pg/mL Total Protein 6.3 (6.3-8.2) g/dL Albumin 3.6 (3.5-5.0) g/dL Coronavirus (PCR) (Not Detectd) 05/14/21 05/14/21 05/14/21 Range/Units 11:41 13:34 14:53 WBC (3.8-10.6) k/uL RBC (4.30-5.90) m/uL Hgb (13.0-17.5) gm/dL Hct (39.0-53.0) % MCV (80.0-100.0) fL MCH (25.0-35.0) pg MCHC (31.0-37.0) g/dL RDW (11.5-15.5) % Plt Count (150-450) k/uL MPV Neutrophils % % Lymphocytes % % Monocytes % % Eosinophils % % Basophils % % Neutrophils # (1.3-7.7) k/uL Lymphocytes # (1.0-4.8) k/uL Monocytes # (0-1.0) k/uL Eosinophils # (0-0.7) k/uL Basophils # (0-0.2) k/uL Manual Slide Review Large Platelets Anisocytosis Sodium (137-145) mmol/L Potassium (3.5-5.1) mmol/L Chloride (98-107) mmol/L Carbon Dioxide (22-30) mmol/L Anion Gap mmol/L BUN (9-20) mg/dL Creatinine (0.66-1.25) mg/dL Est GFR (CKD-EPI)AfAm (>60 ml/min/1.73 sqM) Est GFR (CKD-EPI)NonAf (>60 ml/min/1.73 sqM) Glucose (74-99) mg/dL Plasma Lactic Acid Steven 4.3 H* (0.7-2.0) mmol/L Calcium (8.4-10.2) mg/dL Magnesium (1.6-2.3) mg/dL Total Bilirubin (0.2-1.3) mg/dL AST (17-59) U/L ALT (4-49) U/L Alkaline Phosphatase (38-126) U/L Creatine Kinase (55-170) U/L Troponin I 0.089 H* (0.000-0.034) ng/mL NT-Pro-B Natriuret Pep pg/mL Total Protein (6.3-8.2) g/dL Albumin (3.5-5.0) g/dL Coronavirus (PCR) Not Detected (Not Detectd) - EKG Data -: EKG Interpreted by Me EKG shows normal: sinus rhythm EKG Comments: Sinus tachycardia rate 104. Interval 144 QRS duration 76 daily since QTC 356/[address] T-wave configuration - Radiology Data Radiology results: report reviewed (Imaging reviewed evidence of patchy infiltrates especially the right upper lobe), image reviewed Critical Care Time Critical Care Time: Yes Total Critical Care Time: 40 Critical Care Time: Critical care time includes initial presentation with history physical labs x- rays discussed with paramedics upon arrival discussed with family members on multiple occasions review of old charting discussed with multiple physicians admission orders and documentation the above Disposition Clinical Impression: Sepsis, Pneumonia, Chronic renal failure syndrome, Diabetes, Troponin I above reference range, Elevated brain natriuretic peptide (BNP) level, Febrile illness, Hypotension Disposition: ADMITTED IP TO THIS HOSP Condition: Serious Referrals: Baldev Ayers MD [Primary Care Provider] - 1-2 days
[2021-05-14 11:43] LABS: Anisocytosis Slight; Basophils # (A) 0.1 k/uL (0-0.2); Basophils % (A) 0 %; Eosinophils # (A) 0.1 k/uL (0-0.7); Eosinophils % (A) 1 %; HCT 33.4 % (39.0-53.0); HGB 10.5 gm/dL (13.0-17.5); Lymphocytes # (A) 1.8 k/uL (1.0-4.8); Lymphocytes % (A) 8 %; MCH 29.3 pg (25.0-35.0); MCHC 31.6 g/dL (31.0-37.0); MCV 92.8 fL (80.0-100.0); Mean Platelet Volume 13.9; Monocytes # (A) 0.5 k/uL (0-1.0); Monocytes % (A) 2 %; Neutrophils # (A) 18.8 k/uL (1.3-7.7); Neutrophils % (A) 87 %; RDW 16.2 % (11.5-15.5); WBC 21.6 k/uL (3.8-10.6)
[2021-05-14 11:59] LABS: Albumin 3.6 g/dL (3.5-5.0); Calcium 8.6 mg/dL (8.4-10.2); Magnesium 1.3 mg/dL (1.6-2.3); Potassium 4.8 mmol/L (3.5-5.1); Total Bilirubin 0.4 mg/dL (0.2-1.3); Total Protein 6.3 g/dL (6.3-8.2)
--- NOTE | 2021-05-14 12:16 | XR ---
EXAMINATION TYPE: XR chest 2V DATE OF EXAM: 05/14/2021 COMPARISON: 04/12/2021 TECHNIQUE: PA and lateral views submitted. HISTORY: Fever FINDINGS: Vague patchy infiltrate in the right upper lobe. Subsegmental changes at both lung bases. Bilateral c entral lines are at dialysis catheter is noted. Biapical pleural thickening. Chronic rib deformity on the right. Biapical pleural thickening. No overt pneumothorax. Interstitial prominence noted. IMPRESSION: 1. Patchy bilateral areas of infiltrate with more confluent density in the right upper lobe correlate for pneumonia. 2. Correlate for chronic interstitial lung disease or venous congestion.
[2021-05-14 12:30] LABS: Large Platelets Present; Platelet Count 89 k/uL (150-450)
[2021-05-14] MEDS ORDERED: SODIUM CHLORIDE 0.9% 500 ML 500 ML IV STA ×2 (13:12→15:51)
[2021-05-14] MEDS: cefTRIAXone IN SWFI 1,000 MG/10 ML SYRINGE IVP SCH ×2 (13:24→13:26)
[2021-05-14] MEDS: NOREPINEPHRINE 4 MG in SODIUM CHLORIDE 0.9% 250 ML IV SCH (14:49)
[2021-05-14] MEDS ORDERED: VANCOMYCIN IV PER PHARMACY 1 EACH MISC MISCELLANE PRN ×2 (15:05→21:20)
[2021-05-14] MEDS ORDERED: VANCOMYCIN 1,500 MG in SODIUM CHLORIDE 0.9% 250 ML IVPB ONE (15:30)
[2021-05-14] MEDS ORDERED: NALOXONE 0.4 MG/ML 1 ML VIAL IV PRN (15:45)
[2021-05-14] MEDS ORDERED: ONDANSETRON 4 MG TAB PO PRN (15:48)
[2021-05-14 15:55] LABS: Glucose,Whole Blood 140 mg/dL (75-99)
[2021-05-14] MEDS: SODIUM CHLORIDE 0.9% 1,000 ML IV SCH (15:56)
--- NOTE | 2021-05-14 16:40 | P.CNPUL ---
History of Present Illness Consult date: 05/14/21 Chief complaint: Fever, altered mentation History of present illness: 46-year-old male patient with end-stage renal disease on hemodialysis, morbidly obese with a BMI of 41, peripheral vascular disease with previous dictation right in addition to a recent massive pulmonary embolism requiring intra- arterial thrombolytic using the EKOS SYSTEM maintained on long-term anticoagulation with Eliquis. The patient was brought into the hospital with altered mentation, fever and lethargy. His been going on for the past 12-24 hours as noted by the family. No worsening shortness of breath. The patient was becoming progressively more lethargic. He was also running higher blood pressures and higher blood sugars at home. He arrived to the ED and the patient had a T-max of 104, subsequently dropped his blood pressure down to 75/28, given half a liter of bolus and following that he was started on norepinephrine at 0.04 mcg/kg per minute. He is much more awake for now. His last hemodialysis was 2 days ago. Currently his white cell count is at 21.6. BUN is at 74 with a creatinine of 10.7. Platelet count is at 89. The lactic acid level was at 4.3. Troponin was at 0.08. ProBNP level was 74,100. COVID-19 testing is been negative. Chest x-ray showing cardiac regular with marked malaise congestion. Not on 4 L of oxygen by nasal cannula. No significant respiratory distress. The patient remains on a combination of Rocephin and vancomycin. He has a permacath over the right IJ. He also has a intra-vascular catheter in his left IJ extending to his left upper extremity. Review of Systems ROS unobtainable: due to mental status Past Medical History Past Medical History: Diabetes Mellitus, Dialysis, GERD/Reflux, Hyperlipidemia, Pulmonary Embolus (PE), Renal Disease (End-stage renal disease on hemodialysis), Syncope Additional Past Medical History / Comment(s): constipation, anemia, peripheral vascular disease, diabetes mellitus on insulin pump for blood sugar control, previous history of massive pulmonary embolism, hyperlipidemia, chronic anemia, obesity History of Any Multi-Drug Resistant Organisms: None Reported Additional Past Surgical History / Comment(s): tom cataract, peritoneal dialysis catheter rt side, ECOS 03/19/21 Past Anesthesia/Blood Transfusion Reactions: No Reported Reaction Past Psychological History: Anxiety Smoking Status: Never smoker Past Alcohol Use History: None Reported Past Drug Use History: None Reported - Past Family History Mother Family Medical History: Cancer Father Family Medical History: Dementia Medications and Allergies Home Medications Medication Instructions Recorded Confirmed Type Atorvastatin [Lipitor] 40 mg PO HS 01/31/17 05/14/21 History Dialyvite 1 tab PO DAILY 01/31/17 05/14/21 History Ergocalciferol [Vitamin D2 50,000 unit PO Q14D 01/31/17 05/14/21 History (DRISDOL)] INSULIN LISPRO (For Pump) [humaLOG 0.01 units SQ-PUMP CONTINUOUS 01/31/17 05/14/21 History (For Pump)] Omeprazole [PriLOSEC] 20 mg PO BID 01/31/17 05/14/21 History Timolol [Betimol 0.5% Ophth Soln] 1 drop RIGHT EYE BID 01/31/17 05/14/21 History Furosemide [Lasix] 80 mg PO BID 10/01/20 05/14/21 History Pregabalin [Lyrica] 200 mg PO TID 10/01/20 05/14/21 History oxyCODONE-APAP 10-325MG [Percocet 1 tab PO Q6H 10/01/20 05/14/21 History 10-325 mg] Heparin Sodium,Porcine [Heparin 64,000 units MISCELLANE MOTUWEFRSA 03/16/21 05/14/21 History Sodium] Metoclopramide [Reglan] 5 mg PO TID-W/MEALS 03/16/21 05/14/21 History Midodrine HCl [ProAmatine] 10 mg PO TID 03/16/21 05/14/21 History Ondansetron HCl [Zofran] 4 mg PO BID PRN 03/16/21 05/14/21 History levETIRAcetam [Keppra] 500 mg PO Q12HR #60 tab 04/15/21 05/14/21 Rx Apixaban [Eliquis] 5 mg PO BID 05/14/21 05/14/21 History Calcium Acetate [Phoslo] 667 mg PO DAILY 05/14/21 05/14/21 History Allergies Allergy/AdvReac Type Severity Reaction Status Date / Time No Known Allergies Allergy Verified 04/12/21 12:43 Physical Exam Vitals: Vital Signs Temp Pulse Resp BP Pulse Ox 05/14/21 16:19 94 20 101/58 95 05/14/21 15:57 90 20 94/60 100 05/14/21 14:50 98.0 F 96 20 82/39 96 05/14/21 13:26 96 22 75/28 92 L 05/14/21 12:59 99.8 F H 104 H 20 73/26 93 L 05/14/21 11:59 110 H 22 134/96 90 L 05/14/21 11:04 104 F H 105 H 20 115/35 100 Intake and Output 05/14/21 05/14/21 05/14/21 06:59 14:59 22:59 Other: Weight 99.79 kg Morbidly obese, BMI of 41.6, comfortable, not in acute respiratory distress, currently on 4 L about 2 by nasal cannula Head exam was generally normal. There was no scleral icterus or corneal arcus. Mucous membranes were moist. Neck was supple and without jugular venous distension, thyromegaly, or carotid bruits. Carotids were easily palpable bilaterally. There was no adenopathy. Mallampati class IV with significant crowding of the posterior pharynx Lungs sounds are diminished specially in the lung bases along with some few crackles Heart sounds are tachycardic, positive sinus and there is no significant murmurs appreciated. Overall heart sounds are distant. Abdominal exam revealed normal bowel sounds. The abdomen was soft, non-tender, and without masses, organomegaly, or appreciable enlargement of the abdominal aorta. Extremities reveal a below-knee amputation on the right. Diminished pulses in all 4 extremities. No cyanosis or clubbing. Examination of the skin revealed no evidence of significant rashes, suspicious appearing nevi or other concerning lesions. Neurologically lethargic yet arousable. Moving all 4 extremity is without any limitation. Results - Laboratory Findings CBC and BMP: 05/14/21 11:32 05/14/21 11:32 Abnormal lab findings: Abnormal Labs 05/14/21 05/14/21 05/14/21 11:32 11:32 11:41 WBC 21.6 H RBC 3.60 L Hgb 10.5 L Hct 33.4 L RDW 16.2 H Plt Count 89 L Neutrophils # 18.8 H Sodium 134 L Carbon Dioxide 18 L BUN 74 H Creatinine 10.70 H* Glucose 144 H POC Glucose (mg/dL) Plasma Lactic Acid Steven Magnesium 1.3 L Alkaline Phosphatase 146 H Creatine Kinase 440 H Troponin I 0.089 H* 05/14/21 05/14/21 14:53 15:54 WBC RBC Hgb Hct RDW Plt Count Neutrophils # Sodium Carbon Dioxide BUN Creatinine Glucose POC Glucose (mg/dL) 140 H Plasma Lactic Acid Steven 4.3 H* Magnesium Alkaline Phosphatase Creatine Kinase Troponin I - Diagnostic Findings Chest x-ray: image reviewed Assessment and Plan Plan: 1 septic shock currently under investigation. Source is not clear, consider line infection, catheter-related infection and the patient is a permacath in his right IJ. 2 hypotension secondary to above currently on low-dose norepinephrine infusion for blood pressure support. The patient was given the 500s use of bolus in the emergency. Another 500 mL will be given in the form of normal saline and this will be cautious fluid resuscitation based on his underlying end-stage renal di sease 3 acute febrile illness secondary to above 4 acute leukocytosis 5 acute hypoxic respiratory failure currently on 4 L about 2 by nasal cannula. No clear evidence of pneumonia 6 recent hospitalization for acute pulmonary embolism with RV strain pattern and the patient required intra-arterial thrombolytics with EKOS, maintained on long-term articulation with Eliquis 7 past surgical wound is on hemodialysis 8 peripheral vascular disease 9 right below-knee amputation 10 obesity with a BMI of 41.6 11 hyperlipidemia 12 previous history of pancreatitis 13 chronic anemia/anemia of chronic disease 14 mild lactic acidosis, secondary to above 15 diabetes mellitus maintained on insulin pump on outpatient basis Plan Obtain blood cultures 2 Monitor lactic acid levels Monitor white cell count Continue Rocephin and vancomycin given another 500 mL of normal saline bolus and continue with pressors and titrate the dose to maintain a mean artery pressure above 90 consult nephrology regarding routine hemodialysis stopped the insulin pump and utilize sliding scale coverage and insulin drip if needed Resume long-term articulation with Eliquis at a dose of 2.5 mg by mouth twice a day Chest with the patient in intensive care unit and will continue to follow make further recommendations based on his progress.
[2021-05-14] MEDS: oxyCODONE-APAP 10-325MG 1 EACH TAB PO SCH ×2 (16:50→21:15)
[2021-05-14] MEDS: MIDODRINE 5 MG TAB PO SCH ×2 (16:52→21:11)
[2021-05-14] MEDS: PREGABALIN 100 MG CAP PO SCH ×2 (16:58→21:16)
[2021-05-14 17:17] LABS: Glucose,Whole Blood 160 mg/dL (75-99)
[2021-05-14] MEDS ORDERED: ONDANSETRON 4 MG/2 ML VIAL IVP PRN (18:11)
[2021-05-14] MEDS ORDERED: ACETAMINOPHEN TAB 325 MG TAB PO PRN (18:11)
[2021-05-14] MEDS ORDERED: bisacodyL 5 MG TABLET.DR PO PRN (18:11)
[2021-05-14] MEDS ORDERED: MELATONIN 3 MG TABLET PO PRN (18:11)
--- NOTE | 2021-05-14 18:16 | P.HPIM ---
History of Present Illness H&P Date: 05/14/21 Chief Complaint: fevers Patient is a 46-year-old male with a history of diabetes mellitus on insulin pump, end-stage renal disease on hemodialysis, peripheral vascular disease, and recent diagnosis of massive pulmonary embolism requiring EKOS system who presented to the emergency department secondary to altered mentation, fever, and lethargy. On arrival to the ER he had a temperature of 104 and a pulse of 105. Laboratory analysis shows white blood cell count 21.6, hemoglobin 10.5, sodium 134, BUN 74, creatinine 10.7, troponin 0.089, BNP 74,100, cold was negative. Chest x-ray showed patchy bilateral areas of infiltrate with density in the right upper lobe concerning for pneumonia with increased vascular congestion. The ER he was given a dose of Rocephin and vancomycin. He was persistently hypotensive despite 1 L of IV fluid and therefore was started on levo. He was admitted to the ICU for further monitoring. He does hemodialysis at home. Thinks last did HD 2 days Patient seen and examined at bedside. He is in the ICU. He is very tired. He reports some shortness of breath, nausea, vomiting, and diarrhea. He denies any abdominal pain. He denies any chest discomfort. General ill-appearing, moderate distress, appears at stated age Derm: warm, dry Head: atraumatic, normocephalic, symmetric Eyes: EOMI, no lid lag, anicteric sclera, pupils equal round reactive to light, conjunctival purulent discharge with abnormal cornea on the left patient is a has been this way for months ENT: Nose and ears atraumatic, no thrush, no pharyngeal erythema Neck: No thyromegaly, no cervical lymphadenopathy, trachea midline, supple Mouth: no lip lesion, mucus membranes moist Cardiovascular: S1S2 reg, no murmur, positive posterior tibial pulse left, no edema, capillary refill less than 2 seconds Lungs: clear to ascultation bilateral, no ronchi, no rales, no wheeze, no accessory muscle use Abdominal: soft, nontender to palpation, no guarding, no appreciable organomegaly, normal bowel sounds Ext: no gross muscle atrophy, Right BKA no contractures Neuro: CN II-XI grossly intact, light touch intact all 4 extremities Psych: Lethargic, alert to self and place, believes was 2017, struggles to identify the month. Septic shock, unclear etiology, toxic metabolic encephalopathy secondary to Septic shock Febrile illness Probable PNA - Await blood cultures, check culture from HD cath - Covid testing was negative - Repeat Covid - Continue with Levothroid - Pulmonary consultation - Repeat chest x-ray in a.m. - check urinalysis - check procalcitonin Acute hypoxic respiratory failure - pulm recs - wean O2 as able Recent Massive Pulmonary embolism - continue with eliquis Thrombocytopenia - likely reactive - follow CBC ESRD on HD - consult nephrology Diabetes mellitus type 2 requiring insulin pump -Secondary to altered mentation will stop insulin pump -Sliding-scale insulin -Levemir 10 units tonight -Check hemoglobin A1c Lactic acidosis secondary to above -IV fluids -Repeat lactic acid Troponin elevation likely secondary to end-stage renal disease -Check troponins 1 additional time -If continues to elevate consult cardiology otherwise likely secondary to end- stage renal disease. Chronic: Obesity with BMI 41.6 Dyslipidemia Peripheral arterial disease status post right BKA Dyslipidemia Anemia of chronic disease, likely chronic renal disease Review of Systems ROS unobtainable: due to mental status Past Medical History Past Medical History: Diabetes Mellitus, Dialysis, GERD/Reflux, Hyperlipidemia, Pulmonary Embolus (PE), Renal Disease (End-stage renal disease on hemodialysis), Seizure Disorder, Syncope Additional Past Medical History / Comment(s): constipation, anemia, peripheral vascular disease, diabetes mellitus on insulin pump for blood sugar control, previous history of massive pulmonary embolism, hyperlipidemia, chronic anemia, obesity, seizure disorder History of Any Multi-Drug Resistant Organisms: None Reported Additional Past Surgical History / Comment(s): tom cataract, peritoneal dialysis catheter rt side, ECOS 03/19/21 Past Anesthesia/Blood Transfusion Reactions: No Reported Reaction Past Psychological History: Anxiety Smoking Status: Never smoker Past Alcohol Use History: None Reported Past Drug Use History: None Reported - Past Family History Mother Family Medical History: Cancer Father Family Medical History: Dementia Medications and Allergies Home Medications Medication Instructions Recorded Confirmed Type Atorvastatin [Lipitor] 40 mg PO HS 01/31/17 05/14/21 History Dialyvite 1 tab PO DAILY 01/31/17 05/14/21 History Ergocalciferol [Vitamin D2 50,000 unit PO Q14D 01/31/17 05/14/21 History (DRISDOL)] INSULIN LISPRO (For Pump) [humaLOG 0.01 units SQ-PUMP CONTINUOUS 01/31/17 05/14/21 History (For Pump)] Omeprazole [PriLOSEC] 20 mg PO BID 01/31/17 05/14/21 History Timolol [Betimol 0.5% Ophth Soln] 1 drop RIGHT EYE BID 01/31/17 05/14/21 History Furosemide [Lasix] 80 mg PO BID 10/01/20 05/14/21 History Pregabalin [Lyrica] 200 mg PO TID 10/01/20 05/14/21 History oxyCODONE-APAP 10-325MG [Percocet 1 tab PO Q6H 10/01/20 05/14/21 History 10-325 mg] Heparin Sodium,Porcine [Heparin 64,000 units MISCELLANE MOTUWEFRSA 03/16/21 05/14/21 History Sodium] Metoclopramide [Reglan] 5 mg PO TID-W/MEALS 03/16/21 05/14/21 History Midodrine HCl [ProAmatine] 10 mg PO TID 03/16/21 05/14/21 History Ondansetron HCl [Zofran] 4 mg PO BID PRN 03/16/21 05/14/21 History levETIRAcetam [Keppra] 500 mg PO Q12HR #60 tab 04/15/21 05/14/21 Rx Apixaban [Eliquis] 5 mg PO BID 05/14/21 05/14/21 History Calcium Acetate [Phoslo] 667 mg PO DAILY 05/14/21 05/14/21 History Allergies Allergy/AdvReac Type Severity Reaction Status Date / Time No Known Allergies Allergy Verified 04/12/21 12:43 Physical Exam Osteopathic Statement: *. No significant issues noted on an osteopathic structural exam other than those noted in the History and Physical/Consult. Vitals: Vital Signs Temp Pulse Resp BP Pulse Ox 05/14/21 18:00 97 16 91/42 94 L 05/14/21 17:45 92 20 91/42 94 L 05/14/21 17:30 98.4 F 96 16 102/59 93 L 05/14/21 16:19 94 20 101/58 95 05/14/21 15:57 90 20 94/60 100 05/14/21 14:50 98.0 F 96 20 82/39 96 05/14/21 13:26 96 22 75/28 92 L 05/14/21 12:59 99.8 F H 104 H 20 73/26 93 L 05/14/21 11:59 110 H 22 134/96 90 L 05/14/21 11:04 104 F H 105 H 20 115/35 100 Intake and Output 05/14/21 05/14/21 05/14/21 06:59 14:59 22:59 Other: Weight 99.79 kg Results CBC & Chem 7: 05/14/21 11:32 05/14/21 11:32 Labs: Abnormal Lab Results - Last 24 Hours (Table) 05/14/21 05/14/21 05/14/21 Range/Units 11:32 11:32 11:41 WBC 21.6 H (3.8-10.6) k/uL RBC 3.60 L (4.30-5.90) m/uL Hgb 10.5 L (13.0-17.5) gm/dL Hct 33.4 L (39.0-53.0) % RDW 16.2 H (11.5-15.5) % Plt Count 89 L (150-450) k/uL Neutrophils # 18.8 H (1.3-7.7) k/uL Sodium 134 L (137-145) mmol/L Carbon Dioxide 18 L (22-30) mmol/L BUN 74 H (9-20) mg/dL Creatinine 10.70 H* (0.66-1.25) mg/dL Glucose 144 H (74-99) mg/dL POC Glucose (mg/dL) (75-99) mg/dL Plasma Lactic Acid Steven (0.7-2.0) mmol/L Magnesium 1.3 L (1.6-2.3) mg/dL Alkaline Phosphatase 146 H (38-126) U/L Creatine Kinase 440 H (55-170) U/L Troponin I 0.089 H* (0.000-0.034) ng/mL 05/14/21 05/14/21 05/14/21 Range/Units 14:53 15:54 17:15 WBC (3.8-10.6) k/uL RBC (4.30-5.90) m/uL Hgb (13.0-17.5) gm/dL Hct (39.0-53.0) % RDW (11.5-15.5) % Plt Count (150-450) k/uL Neutrophils # (1.3-7.7) k/uL Sodium (137-145) mmol/L Carbon Dioxide (22-30) mmol/L BUN (9-20) mg/dL Creatinine (0.66-1.25) mg/dL Glucose (74-99) mg/dL POC Glucose (mg/dL) 140 H 160 H (75-99) mg/dL Plasma Lactic Acid Steven 4.3 H* (0.7-2.0) mmol/L Magnesium (1.6-2.3) mg/dL Alkaline Phosphatase (38-126) U/L Creatine Kinase (55-170) U/L Troponin I (0.000-0.034) ng/mL
[2021-05-14] MEDS: INSULIN ASPART (NovoLOG) 100 UNIT/ML VIAL SQ SCH ×2 (18:56→21:12)
[2021-05-14] MEDS: MAGNESIUM SULFATE-D5W PMX 1 GM in DEXTROSE/WATER 1 100ML.BAG IVPB SCH ×2 (18:57→21:10)
[2021-05-14] MEDS: METOCLOPRAMIDE 5 MG TAB PO SCH (19:09)
[2021-05-14 19:22] LABS: Amorphous Sediment,Urine Rare /hpf; Appearance,Urine Turbid (Clear); Bacteria,Urine Many /hpf; Bilirubin,Urine Negative (Negative); Blood,Urine Moderate (Negative); Color,Urine Yellow; Glucose,Urine (UA) Trace (Negative); Ketones,Urine Negative (Negative); Leukocyte Esterase,Urine Large (Negative); Mucus,Urine Rare /hpf; Nitrite,Urine Negative (Negative); Protein,Urine 3+ (Negative); RBC,Urine 39 /hpf (0-5); Specific Gravity,Urine 1.024 (1.001-1.035); Squamous Epithelial Cell,Urine 5 /hpf (0-4); Urobilinogen,Urine <2.0 mg/dL (<2.0); WBC,Urine >182 /hpf (0-5)
[2021-05-14 19:34] LABS: ABG Base Excess -11.2 mmol/L; ABG HCO3 18 mmol/L (21-25); ABG Oxygen Saturation 48.9 % (94-97); ABG PCO2 52 mmHg (35-45); ABG TCO2 19 mmol/L (19-24); Allen Test Performed? Yes
[2021-05-14 19:40] LABS: ABG PH 7.14 (7.35-7.45)
[2021-05-14 19:41] LABS: ABG PO2 34 mmHg (83-108)
[2021-05-14] MEDS ORDERED: FUROSEMIDE 80 MG TAB PO SCH (21:00)
[2021-05-14] MEDS ORDERED: APIXABAN 5 MG TAB PO SCH (21:00)
[2021-05-14 21:01] LABS: Glucose,Whole Blood 253 mg/dL (75-99)
[2021-05-14] MEDS: levETIRAcetam 500 MG TAB PO SCH (21:12)
[2021-05-14] MEDS: ATORVASTATIN 40 MG TAB PO SCH (21:12)
[2021-05-14] MEDS: APIXABAN 2.5 MG TABLET PO SCH (21:12)
[2021-05-14] MEDS: TIMOLOL 0.5% OPHTH DROPS 5 ML BTL RIGHT EYE SCH (21:13)
[2021-05-14] MEDS: INSULIN DETEMIR (LEVEMIR) 100 UNIT/ML SYR SQ SCH (21:13)
[2021-05-15] MEDS: SODIUM CHLORIDE 0.9% 1,000 ML IV SCH ×2 (00:40→07:03)
[2021-05-15 04:14] LABS: Anisocytosis Slight; HCT 31.9 % (39.0-53.0); HGB 10.2 gm/dL (13.0-17.5); Hypochromasia Marked; MCHC 31.9 g/dL (31.0-37.0); Mean Platelet Volume 14.9; RBC 3.29 m/uL (4.30-5.90); RDW 16.2 % (11.5-15.5); WBC 23.4 k/uL (3.8-10.6)
[2021-05-15 04:26] LABS: Platelet Count 70 k/uL (150-450)
[2021-05-15 04:52] LABS: Albumin 3.7 g/dL (3.5-5.0); Calcium 7.5 mg/dL (8.4-10.2); Magnesium 2.3 mg/dL (1.6-2.3); Total Bilirubin 0.4 mg/dL (0.2-1.3); Total Protein 6.5 g/dL (6.3-8.2)
[2021-05-15 05:56] LABS: Potassium 6.5 mmol/L (3.5-5.1)
[2021-05-15] MEDS: oxyCODONE-APAP 10-325MG 1 EACH TAB PO SCH ×4 (06:23→22:10)
[2021-05-15] MEDS ORDERED: INSULIN REGULAR 100 UNIT/ML VIAL (IV) IV ONE (06:33)
[2021-05-15] MEDS ORDERED: SODIUM BICARB 8.4% 50 ML SYR (1 MEQ/ML) IV STA ×2 (06:35→06:37)
[2021-05-15] MEDS ORDERED: DEXTROSE 50% SYRINGE 50 ML IVP STA (06:37)
[2021-05-15 06:45] LABS: Glucose,Whole Blood 285 mg/dL (75-99)
[2021-05-15] MEDS: NOREPINEPHRINE 4 MG in SODIUM CHLORIDE 0.9% 250 ML IV SCH ×2 (07:01→18:01)
[2021-05-15] MEDS: METOCLOPRAMIDE 5 MG TAB PO SCH ×3 (07:02→16:55)
[2021-05-15] MEDS: INSULIN ASPART (NovoLOG) 100 UNIT/ML VIAL SQ SCH ×4 (07:02→20:21)
[2021-05-15] MEDS: PANTOPRAZOLE 40 MG TABLET PO SCH (07:02)
--- NOTE | 2021-05-15 08:49 | P.PN ---
Subjective Progress Note Date: 05/15/21 46-year-old male patient with end-stage renal disease on hemodialysis, morbidly obese with a BMI of 41, peripheral vascular disease with previous dictation right in addition to a recent massive pulmonary embolism requiring intra- arterial thrombolytic using the EKOS SYSTEM maintained on long-term anticoagulation with Eliquis. The patient was brought into the hospital with altered mentation, fever and lethargy. His been going on for the past 12-24 hours as noted by the family. No worsening shortness of breath. The patient was becoming progressively more lethargic. He was also running higher blood pressures and higher blood sugars at home. He arrived to the ED and the patient had a T-max of 104, subsequently dropped his blood pressure down to 75/28, given half a liter of bolus and following that he was started on norepinephrine at 0.04 mcg/kg per minute. He is much more awake for now. His last hemodialysis was 2 days ago. Currently his white cell count is at 21.6. BUN is at 74 with a creatinine of 10.7. Platelet count is at 89. The lactic acid level was at 4.3. Troponin was at 0.08. ProBNP level was 74,100. COVID-19 testing is been negative. Chest x-ray showing cardiac regular with marked malaise congestion. Not on 4 L of oxygen by nasal cannula. No significant respiratory distress. The patient remains on a combination of Rocephin and vancomycin. He has a permacath over the right IJ. He also has a intra-vascular catheter in his left IJ extending to his left upper extremity. 05/15/2021, being seen in follow-up in the intensive care unit. He was admitted yesterday with septic shock. High suspicion for line infection as the patient grew staph aureus in the blood on 2 separate blood cultures. He remains on a combination of Rocephin and vancomycin. He was on pressors at the low-dose overnight and he is taken off the pressors earlier this morning. He is lethargic but he is arousable. Earlier this morning, his potassium level came back at 6.5 and his serum bicarb was at 14. The patient was given the potassium cocktail which included D50 insulin and x2 sodium bicarb and currently is undergoing hemodialysis. We are still utilizing the permacath in his right IJ. Note that he also has another graft/fistula in his left IJ extending to his left upper extremity. No signs of any respiratory distress. He has obvious signs of sleep apnea. He is currently on oxygen at 4 L per minute nasal cannula. His IV fluids currently running at 0.9 at 1 30 mL's an hour. This will be kept down to 40 mL an hour, maintenance. A repeat echocardiogram to be done today. His last echocardiogram post PE showed considerable degree of pulmonary hypertension. LV function was essentially within normal limits. On his blood work today, his white cell count is 23 with a hemoglobin of 10.2. Liver function tests are within normal limits. Troponin was admitted 0.05, repeat level. Pro-calcitonin his considerably elevated above 100. Urine cultures are still pending for now. Note that this patient undergoes hemodialysis at home. He has a below-knee amputation right lower extremity. Objective - Vital Signs Vital signs: Vital Signs Temp 97.7 F 05/15/21 04:00 Pulse 76 05/15/21 07:00 Resp 15 05/15/21 06:00 BP 86/69 05/15/21 07:00 Pulse Ox 94 L 05/15/21 08:24 Intake & Output 05/14/21 05/15/21 05/15/21 18:59 06:59 18:59 Intake Total 130 2013. 130.253 Output Total 30 0 0 Balance 100 2013. 130.253 Weight 102.4 kg 105.4 kg Intake: IV 130 1760 130 Magnesium Sulfate-D5w Pmx 200 1 gm In Dextrose/Water 1 100ml.bag @ 100 mls/hr IVPB Q1H GABY Rx#: [id number] Sodium Chloride 0.9% 1, 130 1560 130 000 ml @ 130 mls/hr IV . [id number] G[facility]Y Rx#:[id number] Intake, IV Titration 254.000 0.253 Amount Norepinephrine 4 mg In 254.000 0.253 Sodium Chloride 0.9% 250 ml @ 0.05 MCG/KG/MIN 19. 01 mls/hr IV .[id number] GABY Rx#:[id number] Output: Urine 30 0 0 - Exam Morbidly obese, BMI of 41.6, comfortable, not in acute respiratory distress, currently on 4 L by nasal cannula Head exam was generally normal. There was no scleral icterus or corneal arcus. Mucous membranes were moist. Neck was supple and without jugular venous distension, thyromegaly, or carotid bruits. Carotids were easily palpable bilaterally. There was no adenopathy. Mallampati class IV with significant crowding of the posterior pharynx Lungs sounds are diminished specially in the lung bases along with some few crackles Heart sounds are tachycardic, positive sinus and there is no significant murmurs appreciated. Overall heart sounds are distant. Abdominal exam revealed normal bowel sounds. The abdomen was soft, non-tender, and without masses, organomegaly, or appreciable enlargement of the abdominal aorta. Extremities reveal a below-knee amputation on the right. Diminished pulses in all 4 extremities. No cyanosis or clubbing. Examination of the skin revealed no evidence of significant rashes, suspicious appearing nevi or other concerning lesions. Neurologically lethargic yet arousable. Moving all 4 extremity is without any limitation. - Labs CBC & Chem 7: 05/15/21 03:26 05/15/21 03:26 Labs: Abnormal Lab Results - Last 24 Hours (Table) 05/14/21 05/14/21 05/14/21 Range/Units 11:32 11:32 11:41 WBC 21.6 H (3.8-10.6) k/uL RBC 3.60 L (4.30-5.90) m/uL Hgb 10.5 L (13.0-17.5) gm/dL Hct 33.4 L (39.0-53.0) % RDW 16.2 H (11.5-15.5) % Plt Count 89 L (150-450) k/uL Neutrophils # 18.8 H (1.3-7.7) k/uL ABG pH (7.35-7.45) ABG pCO2 (35-45) mmHg ABG pO2 (83-108) mmHg ABG HCO3 (21-25) mmol/L ABG O2 Saturation (94-97) % Sodium 134 L (137-145) mmol/L Potassium (3.5-5.1) mmol/L Carbon Dioxide 18 L (22-30) mmol/L BUN 74 H (9-20) mg/dL Creatinine 10.70 H* (0.66-1.25) mg/dL Glucose 144 H (74-99) mg/dL POC Glucose (mg/dL) (75-99) mg/dL Plasma Lactic Acid Steven (0.7-2.0) mmol/L Calcium (8.4-10.2) mg/dL Magnesium 1.3 L (1.6-2.3) mg/dL AST (17-59) U/L Alkaline Phosphatase 146 H (38-126) U/L Creatine Kinase 440 H (55-170) U/L Troponin I 0.089 H* (0.000-0.034) ng/mL Procalcitonin (0.02-0.09) ng/mL Urine Protein (Negative) Urine Glucose (UA) (Negative) Urine Blood (Negative) Ur Leukocyte Esterase (Negative) Urine RBC (0-5) /hpf Urine WBC (0-5) /hpf Ur Squamous Epith Cells (0-4) /hpf Amorphous Sediment (None) /hpf Urine Bacteria (None) /hpf Urine Mucus (None) /hpf 05/14/21 05/14/21 05/14/21 Range/Units 14:53 15:54 17:15 WBC (3.8-10.6) k/uL RBC (4.30-5.90) m/uL Hgb (13.0-17.5) gm/dL Hct (39.0-53.0) % RDW (11.5-15.5) % Plt Count (150-450) k/uL Neutrophils # (1.3-7.7) k/uL ABG pH (7.35-7.45) ABG pCO2 (35-45) mmHg ABG pO2 (83-108) mmHg ABG HCO3 (21-25) mmol/L ABG O2 Saturation (94-97) % Sodium (137-145) mmol/L Potassium (3.5-5.1) mmol/L Carbon Dioxide (22-30) mmol/L BUN (9-20) mg/dL Creatinine (0.66-1.25) mg/dL Glucose (74-99) mg/dL POC Glucose (mg/dL) 140 H 160 H (75-99) mg/dL Plasma Lactic Acid Steven 4.3 H* (0.7-2.0) mmol/L Calcium (8.4-10.2) mg/dL Magnesium (1.6-2.3) mg/dL AST (17-59) U/L Alkaline Phosphatase (38-126) U/L Creatine Kinase (55-170) U/L Troponin I (0.000-0.034) ng/mL Procalcitonin (0.02-0.09) ng/mL Urine Protein (Negative) Urine Glucose (UA) (Negative) Urine Blood (Negative) Ur Leukocyte Esterase (Negative) Urine RBC (0-5) /hpf Urine WBC (0-5) /hpf Ur Squamous Epith Cells (0-4) /hpf Amorphous Sediment (None) /hpf Urine Bacteria (None) /hpf Urine Mucus (None) /hpf 05/14/21 05/14/21 05/14/21 Range/Units 18:10 18:10 18:24 WBC (3.8-10.6) k/uL RBC (4.30-5.90) m/uL Hgb (13.0-17.5) gm/dL Hct (39.0-53.0) % RDW (11.5-15.5) % Plt Count (150-450) k/uL Neutrophils # (1.3-7.7) k/uL ABG pH (7.35-7.45) ABG pCO2 (35-45) mmHg ABG pO2 (83-108) mmHg ABG HCO3 (21-25) mmol/L ABG O2 Saturation (94-97) % Sodium (137-145) mmol/L Potassium (3.5-5.1) mmol/L Carbon Dioxide (22-30) mmol/L BUN (9-20) mg/dL Creatinine (0.66-1.25) mg/dL Glucose (74-99) mg/dL POC Glucose (mg/dL) (75-99) mg/dL Plasma Lactic Acid Steven (0.7-2.0) mmol/L Calcium (8.4-10.2) mg/dL Magnesium (1.6-2.3) mg/dL AST (17-59) U/L Alkaline Phosphatase (38-126) U/L Creatine Kinase (55-170) U/L Troponin I 0.056 H* (0.000-0.034) ng/mL Procalcitonin >100.00 H (0.02-0.09) ng/mL Urine Protein 3+ H (Negative) Urine Glucose (UA) Trace H (Negative) Urine Blood Moderate H (Negative) Ur Leukocyte Esterase Large H (Negative) Urine RBC 39 H (0-5) /hpf Urine WBC >182 H (0-5) /hpf Ur Squamous Epith Cells 5 H (0-4) /hpf Amorphous Sediment Rare H (None) /hpf Urine Bacteria Many H (None) /hpf Urine Mucus Rare H (None) /hpf 05/14/21 05/14/21 05/15/21 Range/Units 19:26 21:00 03:26 WBC 23.4 H (3.8-10.6) k/uL RBC 3.29 L (4.30-5.90) m/uL Hgb 10.2 L (13.0-17.5) gm/dL Hct 31.9 L (39.0-53.0) % RDW 16.2 H (11.5-15.5) % Plt Count 70 L (150-450) k/uL Neutrophils # (1.3-7.7) k/uL ABG pH 7.14 L* (7.35-7.45) ABG pCO2 52 H (35-45) mmHg ABG pO2 34 L* (83-108) mmHg ABG HCO3 18 L (21-25) mmol/L ABG O2 Saturation 48.9 L (94-97) % Sodium (137-145) mmol/L Potassium (3.5-5.1) mmol/L Carbon Dioxide (22-30) mmol/L BUN (9-20) mg/dL Creatinine (0.66-1.25) mg/dL Glucose (74-99) mg/dL POC Glucose (mg/dL) 253 H (75-99) mg/dL Plasma Lactic Acid Steven (0.7-2.0) mmol/L Calcium (8.4-10.2) mg/dL Magnesium (1.6-2.3) mg/dL AST (17-59) U/L Alkaline Phosphatase (38-126) U/L Creatine Kinase (55-170) U/L Troponin I (0.000-0.034) ng/mL Procalcitonin (0.02-0.09) ng/mL Urine Protein (Negative) Urine Glucose (UA) (Negative) Urine Blood (Negative) Ur Leukocyte Esterase (Negative) Urine RBC (0-5) /hpf Urine WBC (0-5) /hpf Ur Squamous Epith Cells (0-4) /hpf Amorphous Sediment (None) /hpf Urine Bacteria (None) /hpf Urine Mucus (None) /hpf 05/15/21 05/15/21 Range/Units 03:26 06:43 WBC (3.8-10.6) k/uL RBC (4.30-5.90) m/uL Hgb (13.0-17.5) gm/dL Hct (39.0-53.0) % RDW (11.5-15.5) % Plt Count (150-450) k/uL Neutrophils # (1.3-7.7) k/uL ABG pH (7.35-7.45) ABG pCO2 (35-45) mmHg ABG pO2 (83-108) mmHg ABG HCO3 (21-25) mmol/L ABG O2 Saturation (94-97) % Sodium 134 L (137-145) mmol/L Potassium 6.5 H* (3.5-5.1) mmol/L Carbon Dioxide 14 L (22-30) mmol/L BUN 81 H (9-20) mg/dL Creatinine 11.75 H* (0.66-1.25) mg/dL Glucose 271 H (74-99) mg/dL POC Glucose (mg/dL) 285 H (75-99) mg/dL Plasma Lactic Acid Steven (0.7-2.0) mmol/L Calcium 7.5 L (8.4-10.2) mg/dL Magnesium (1.6-2.3) mg/dL AST 72 H (17-59) U/L Alkaline Phosphatase 156 H (38-126) U/L Creatine Kinase (55-170) U/L Troponin I (0.000-0.034) ng/mL Procalcitonin (0.02-0.09) ng/mL Urine Protein (Negative) Urine Glucose (UA) (Negative) Urine Blood (Negative) Ur Leukocyte Esterase (Negative) Urine RBC (0-5) /hpf Urine WBC (0-5) /hpf Ur Squamous Epith Cells (0-4) /hpf Amorphous Sediment (None) /hpf Urine Bacteria (None) /hpf Urine Mucus (None) /hpf Microbiology - Last 24 Hours (Table) 05/14/21 18:24 Urine Culture - Preliminary Urine,Voided 05/14/21 11:32 Blood Culture Gram Stain - Preliminary Blood Blood Culture - Preliminary Staphylococcus aureus 05/14/21 12:00 Blood Culture Gram Stain - Preliminary Blood 05/14/21 12:00 Blood Culture - Final Blood 05/14/21 11:32 Blood Culture - Final Blood Assessment and Plan Plan: 1 septic shock secondary to staph aureus, awaiting final sensitivities, currently on a combination of Rocephin and vancomycin. Source most likely , Suspect permacath infection. The patient also has a fistula in his left upper extremity and this is a tunneled fistula extending from the left IJ to the left upper extremity. Currently off pressors. Received a bolus of 1 L in the emergency and maintained on 130 mL an abnormal saline 2 hypotension , secondary to above, recovered 3 acute febrile illness secondary to above 4 acute leukocytosis white cell count is still elevated 5 acute hypoxic respiratory failure currently on 4 L by nasal cannula. No clear evidence of pneumonia 6 recent hospitalization for acute pulmonary embolism with RV strain pattern and the patient required intra-arterial thrombolytics with EKOS, maintained on long- term articulation with Eliquis 7 past surgical wound is on hemodialysis 8 peripheral vascular disease 9 right below-knee amputation 10 obesity with a BMI of 41.6 11 hyperlipidemia 12 previous history of pancreatitis 13 chronic anemia/anemia of chronic disease 14 mild lactic acidosis, secondary to above 15 diabetes mellitus maintained on insulin pump on outpatient basis 16 acute hyperkalemia 17 anion gap metabolic acidosis with a serum bicarb of 14 Plan Blood cultures and the final results are still pending for now. Abdomen is also positive for staph aureus Monitor lactic acid levels, levels are improving Monitor white cell count, levels are still high Continue Rocephin and vancomycin [employer] [place] surgery with a possibility of removing or replacing the permacath. We'll also consult infectious disease stopped the insulin pump and utilize sliding scale coverage and insulin drip if needed Resume long-term articulation with Eliquis at a dose of 2.5 mg by mouth twice a day Repeat echocardiogram Keep patient in intensive care unit and will continue to follow make further recommendations based on his progress.
[2021-05-15] MEDS ORDERED: ENOXAPARIN 40 MG/0.4 ML SYRINGE SQ SCH (09:00)
--- NOTE | 2021-05-15 09:48 | XR ---
EXAMINATION TYPE: XR chest 1V portable DATE OF EXAM: 05/15/2021 COMPARISON: 05/14/2021 HISTORY: Fever TECHNIQUE: Single frontal view of the chest is obtained. FINDINGS: Bilateral central venous catheters stable. Chronic rib deformity noted. Heart size is prom inent and there is increased density at both lung bases. Interstitium is slightly improved. Right upp er lobe density persists but also slightly improved. IMPRESSION: 1. Improving interstitial appearance correlate for improving interstitial pneumonitis or venous conge stion. 2. Persistent basilar and right upper lobe areas of patchy infiltrate. Right upper lobe area demonstr ates improvement. Otherwise findings stable.
--- NOTE | 2021-05-15 10:22 | ECHOF ---
Referral Reason:shock, bacteremia MEASUREMENTS -------- HEIGHT: 154.9 cm WEIGHT: 105.2 kg BP: RVIDd: 2.7 cm (< 3.3) IVSd: 1.0 cm (0.6 - 1.1) LVIDd: 2.9 cm (3.9 - 5.3) LVPWd: 1.2 cm (0.6 - 1.1) IVSs: 1.5 cm LVIDs: 2.3 cm LVPWs: 1.7 cm RAP: 5.00 mmHg RVSP: 36.61 mmHg FINDINGS -------- Limited Study The left ventricular size is normal. Left ventricular wall thickness is normal. Overall left vent ricular systolic function is normal with, an EF between 55 - 60 %. There is no pericardial effusion. CONCLUSIONS -------- 1. The left ventricular size is normal. 2. Left ventricular wall thickness is normal. 3. Overall left ventricular systolic function is normal with, an EF between 55 - 60 %. 4. There is no pericardial effusion. VETERINARIAN ASSISTANT: Pao Warner RDCS
[2021-05-15] MEDS: CALCIUM ACETATE 667 MG TAB PO SCH (10:30)
[2021-05-15] MEDS: PREGABALIN 100 MG CAP PO SCH ×3 (11:04→22:11)
[2021-05-15] MEDS: APIXABAN 2.5 MG TABLET PO SCH ×2 (11:04→20:23)
[2021-05-15] MEDS: MIDODRINE 5 MG TAB PO SCH ×3 (11:04→20:22)
[2021-05-15] MEDS: levETIRAcetam 500 MG TAB PO SCH ×2 (11:05→20:22)
[2021-05-15] MEDS: TIMOLOL 0.5% OPHTH DROPS 5 ML BTL RIGHT EYE SCH ×2 (11:05→20:25)
[2021-05-15 11:50] LABS: Glucose,Whole Blood 161 mg/dL (75-99)
[2021-05-15] MEDS: FOLIC ACID-VIT B COMPLEX-VIT C 1 CAP PO SCH (11:58)
--- NOTE | 2021-05-15 13:02 | P.GSCN ---
History of Present Illness Consult date: 05/15/21 Reason for Consult: Possible infected tunneled catheter Requesting physician: Samantha Mccormick History of present illness: Systole 46-year-old male with a history of diabetes mellitus on an insulin pump, end-stage renal disease on hemodialysis, peripheral vascular disease with a previous right below the knee amputation, recent diagnosis of massive pulmonary embolism requiring EKOS and currently on Eliquis who presented to the emergency department with altered mental status, fever, and weakness. On initial presen tation he had a max temp of 104. Chest x-ray showed patchy bilateral areas of infiltrate with density in the right upper lobe concerning for pneumonia with increased vascular congestion. He was hypotensive started on levo and admitted to the ICU for further monitoring. Preliminary blood culture showing staph aureus. The patient had a tunneled catheter placed in his right upper chest wall approximately 6 months ago at [facility]. He has had multiple hemodialysis accesses which have failed. Vascular surgery has been consulted because they believe possible source of bacteremia is the hemodialysis catheter. The patient underwent hemodialysis yesterday and today with good flow. Patient is currently on ceftriaxone and vancomycin. Infectious disease is on consult, nephrology is following. He is been afebrile. He denies any chest pain, shortness breath, abdominal pain, pain in his chest wall, nausea or vomiting. Past Medical History Past Medical History: Diabetes Mellitus, Dialysis, GERD/Reflux, Hyperlipidemia, Pulmonary Embolus (PE), Renal Disease, Seizure Disorder, Syncope Additional Past Medical History / Comment(s): constipation, anemia, peripheral vascular disease, diabetes mellitus on insulin pump for blood sugar control, previous history of massive pulmonary embolism - ECOS, hyperlipidemia, HD at home History of Any Multi-Drug Resistant Organisms: None Reported Additional Past Surgical History / Comment(s): tom cataract, peritoneal dialysis catheter rt side, ECOS 03/19/21, HERO HD site left chest, right forearm fistula - no longer active, left arm fistula - no longer active, right chest HD temp. HD cath., RBKA Past Anesthesia/Blood Transfusion Reactions: No Reported Reaction Past Psychological History: Anxiety, Depression Smoking Status: Never smoker Past Alcohol Use History: None Reported Past Drug Use History: None Reported - Past Family History Mother Family Medical History: Cancer Father Family Medical History: Dementia Medications and Allergies Home Medications Medication Instructions Recorded Confirmed Type Atorvastatin [Lipitor] 40 mg PO HS 01/31/17 05/14/21 History Dialyvite 1 tab PO DAILY 01/31/17 05/14/21 History Ergocalciferol [Vitamin D2 50,000 unit PO Q14D 01/31/17 05/14/21 History (DRISDOL)] INSULIN LISPRO (For Pump) [humaLOG 0.01 units SQ-PUMP CONTINUOUS 01/31/17 05/14/21 History (For Pump)] Omeprazole [PriLOSEC] 20 mg PO BID 01/31/17 05/14/21 History Timolol [Betimol 0.5% Ophth Soln] 1 drop RIGHT EYE BID 01/31/17 05/14/21 History Furosemide [Lasix] 80 mg PO BID 10/01/20 05/14/21 History Pregabalin [Lyrica] 200 mg PO TID 10/01/20 05/14/21 History oxyCODONE-APAP 10-325MG [Percocet 1 tab PO Q6H 10/01/20 05/14/21 History 10-325 mg] Heparin Sodium,Porcine [Heparin 64,000 units MISCELLANE MOTUWEFRSA 03/16/21 History Sodium] Metoclopramide [Reglan] 5 mg PO TID-W/MEALS 03/16/21 05/14/21 History Midodrine HCl [ProAmatine] 10 mg PO TID 03/16/21 05/14/21 History Ondansetron HCl [Zofran] 4 mg PO BID PRN 03/16/21 05/14/21 History levETIRAcetam [Keppra] 500 mg PO Q12HR #60 tab 04/15/21 05/14/21 Rx Apixaban [Eliquis] 5 mg PO BID 05/14/21 05/14/21 History Calcium Acetate [Phoslo] 667 mg PO DAILY 05/14/21 05/14/21 History Allergies Allergy/AdvReac Type Severity Reaction Status Date / Time No Known Allergies Allergy Verified 04/12/21 12:43 Surgical - Exam Vital Signs Temp Pulse Resp BP Pulse Ox 104 F H 105 H 20 115/35 100 05/14/21 11:04 05/14/21 11:04 05/14/21 11:04 05/14/21 11:04 05/14/21 11:04 General appearance: The patient is alert, oriented, appears in no acute distress. HET: Head is normocephalic and atraumatic. Neck: Supple without lymphadenopathy. Trachea midline. Heart: S1 S2. Regular rate and rhythm. Lungs: Clear to auscultation. Chest wall. Normal expansion, right upper chest wall/right IJ tunneled catheter intact with Tegaderm dressing, no redness, no drainage. Abdomen: Soft, nontender, nondistended. Extremities: Normal skin color and turgor. No palpable bilateral radial pulses. Right below the knee amputation wrapped with Cas wrap. Neurological: No focal deficits. Strength and sensation are grossly intact. Results - Labs 05/15/21 03:26 05/15/21 03:26 Abnormal Lab Results - Last 24 Hours (Table) 05/14/21 05/14/21 05/14/21 Range/Units 11:32 11:32 11:41 WBC 21.6 H (3.8-10.6) k/uL RBC 3.60 L (4.30-5.90) m/uL Hgb 10.5 L (13.0-17.5) gm/dL Hct 33.4 L (39.0-53.0) % RDW 16.2 H (11.5-15.5) % Plt Count 89 L (150-450) k/uL Neutrophils # 18.8 H (1.3-7.7) k/uL ABG pH (7.35-7.45) ABG pCO2 (35-45) mmHg ABG pO2 (83-108) mmHg ABG HCO3 (21-25) mmol/L ABG O2 Saturation (94-97) % Sodium 134 L (137-145) mmol/L Potassium (3.5-5.1) mmol/L Carbon Dioxide 18 L (22-30) mmol/L BUN 74 H (9-20) mg/dL Creatinine 10.70 H* (0.66-1.25) mg/dL Glucose 144 H (74-99) mg/dL POC Glucose (mg/dL) (75-99) mg/dL Plasma Lactic Acid Steven (0.7-2.0) mmol/L Calcium (8.4-10.2) mg/dL Magnesium 1.3 L (1.6-2.3) mg/dL AST (17-59) U/L Alkaline Phosphatase 146 H (38-126) U/L Creatine Kinase 440 H (55-170) U/L Troponin I 0.089 H* (0.000-0.034) ng/mL Procalcitonin (0.02-0.09) ng/mL Urine Protein (Negative) Urine Glucose (UA) (Negative) Urine Blood (Negative) Ur Leukocyte Esterase (Negative) Urine RBC (0-5) /hpf Urine WBC (0-5) /hpf Ur Squamous Epith Cells (0-4) /hpf Amorphous Sediment (None) /hpf Urine Bacteria (None) /hpf Urine Mucus (None) /hpf 05/14/21 05/14/21 05/14/21 Range/Units 14:53 15:54 17:15 WBC (3.8-10.6) k/uL RBC (4.30-5.90) m/uL Hgb (13.0-17.5) gm/dL Hct (39.0-53.0) % RDW (11.5-15.5) % Plt Count (150-450) k/uL Neutrophils # (1.3-7.7) k/uL ABG pH (7.35-7.45) ABG pCO2 (35-45) mmHg ABG pO2 (83-108) mmHg ABG HCO3 (21-25) mmol/L ABG O2 Saturation (94-97) % Sodium (137-145) mmol/L Potassium (3.5-5.1) mmol/L Carbon Dioxide (22-30) mmol/L BUN (9-20) mg/dL Creatinine (0.66-1.25) mg/dL Glucose (74-99) mg/dL POC Glucose (mg/dL) 140 H 160 H (75-99) mg/dL Plasma Lactic Acid Steven 4.3 H* (0.7-2.0) mmol/L Calcium (8.4-10.2) mg/dL Magnesium (1.6-2.3) mg/dL AST (17-59) U/L Alkaline Phosphatase (38-126) U/L Creatine Kinase (55-170) U/L Troponin I (0.000-0.034) ng/mL Procalcitonin (0.02-0.09) ng/mL Urine Protein (Negative) Urine Glucose (UA) (Negative) Urine Blood (Negative) Ur Leukocyte Esterase (Negative) Urine RBC (0-5) /hpf Urine WBC (0-5) /hpf Ur Squamous Epith Cells (0-4) /hpf Amorphous Sediment (None) /hpf Urine Bacteria (None) /hpf Urine Mucus (None) /hpf 05/14/21 05/14/21 05/14/21 Range/Units 18:10 18:10 18:24 WBC (3.8-10.6) k/uL RBC (4.30-5.90) m/uL Hgb (13.0-17.5) gm/dL Hct (39.0-53.0) % RDW (11.5-15.5) % Plt Count (150-450) k/uL Neutrophils # (1.3-7.7) k/uL ABG pH (7.35-7.45) ABG pCO2 (35-45) mmHg ABG pO2 (83-108) mmHg ABG HCO3 (21-25) mmol/L ABG O2 Saturation (94-97) % Sodium (137-145) mmol/L Potassium (3.5-5.1) mmol/L Carbon Dioxide (22-30) mmol/L BUN (9-20) mg/dL Creatinine (0.66-1.25) mg/dL Glucose (74-99) mg/dL POC Glucose (mg/dL) (75-99) mg/dL Plasma Lactic Acid Steven (0.7-2.0) mmol/L Calcium (8.4-10.2) mg/dL Magnesium (1.6-2.3) mg/dL AST (17-59) U/L Alkaline Phosphatase (38-126) U/L Creatine Kinase (55-170) U/L Troponin I 0.056 H* (0.000-0.034) ng/mL Procalcitonin >100.00 H (0.02-0.09) ng/mL Urine Protein 3+ H (Negative) Urine Glucose (UA) Trace H (Negative) Urine Blood Moderate H (Negative) Ur Leukocyte Esterase Large H (Negative) Urine RBC 39 H (0-5) /hpf Urine WBC >182 H (0-5) /hpf Ur Squamous Epith Cells 5 H (0-4) /hpf Amorphous Sediment Rare H (None) /hpf Urine Bacteria Many H (None) /hpf Urine Mucus Rare H (None) /hpf 05/14/21 05/14/21 05/15/21 Range/Units 19:26 21:00 03:26 WBC 23.4 H (3.8-10.6) k/uL RBC 3.29 L (4.30-5.90) m/uL Hgb 10.2 L (13.0-17.5) gm/dL Hct 31.9 L (39.0-53.0) % RDW 16.2 H (11.5-15.5) % Plt Count 70 L (150-450) k/uL Neutrophils # (1.3-7.7) k/uL ABG pH 7.14 L* (7.35-7.45) ABG pCO2 52 H (35-45) mmHg ABG pO2 34 L* (83-108) mmHg ABG HCO3 18 L (21-25) mmol/L ABG O2 Saturation 48.9 L (94-97) % Sodium (137-145) mmol/L Potassium (3.5-5.1) mmol/L Carbon Dioxide (22-30) mmol/L BUN (9-20) mg/dL Creatinine (0.66-1.25) mg/dL Glucose (74-99) mg/dL POC Glucose (mg/dL) 253 H (75-99) mg/dL Plasma Lactic Acid Steven (0.7-2.0) mmol/L Calcium (8.4-10.2) mg/dL Magnesium (1.6-2.3) mg/dL AST (17-59) U/L Alkaline Phosphatase (38-126) U/L Creatine Kinase (55-170) U/L Troponin I (0.000-0.034) ng/mL Procalcitonin (0.02-0.09) ng/mL Urine Protein (Negative) Urine Glucose (UA) (Negative) Urine Blood (Negative) Ur Leukocyte Esterase (Negative) Urine RBC (0-5) /hpf Urine WBC (0-5) /hpf Ur Squamous Epith Cells (0-4) /hpf Amorphous Sediment (None) /hpf Urine Bacteria (None) /hpf Urine Mucus (None) /hpf 05/15/21 05/15/21 Range/Units 03:26 06:43 WBC (3.8-10.6) k/uL RBC (4.30-5.90) m/uL Hgb (13.0-17.5) gm/dL Hct (39.0-53.0) % RDW (11.5-15.5) % Plt Count (150-450) k/uL Neutrophils # (1.3-7.7) k/uL ABG pH (7.35-7.45) ABG pCO2 (35-45) mmHg ABG pO2 (83-108) mmHg ABG HCO3 (21-25) mmol/L ABG O2 Saturation (94-97) % Sodium 134 L (137-145) mmol/L Potassium 6.5 H* (3.5-5.1) mmol/L Carbon Dioxide 14 L (22-30) mmol/L BUN 81 H (9-20) mg/dL Creatinine 11.75 H* (0.66-1.25) mg/dL Glucose 271 H (74-99) mg/dL POC Glucose (mg/dL) 285 H (75-99) mg/dL Plasma Lactic Acid Steven (0.7-2.0) mmol/L Calcium 7.5 L (8.4-10.2) mg/dL Magnesium (1.6-2.3) mg/dL AST 72 H (17-59) U/L Alkaline Phosphatase 156 H (38-126) U/L Creatine Kinase (55-170) U/L Troponin I (0.000-0.034) ng/mL Procalcitonin (0.02-0.09) ng/mL Urine Protein (Negative) Urine Glucose (UA) (Negative) Urine Blood (Negative) Ur Leukocyte Esterase (Negative) Urine RBC (0-5) /hpf Urine WBC (0-5) /hpf Ur Squamous Epith Cells (0-4) /hpf Amorphous Sediment (None) /hpf Urine Bacteria (None) /hpf Urine Mucus (None) /hpf Microbiology - Last 24 Hours (Table) 05/14/21 11:32 Blood Culture Gram Stain - Preliminary Blood Blood Culture - Preliminary Staphylococcus aureus 05/14/21 18:24 Urine Culture - Preliminary Urine,Voided 05/14/21 12:00 Blood Culture Gram Stain - Preliminary Blood 05/14/21 12:00 Blood Culture - Final Blood 05/14/21 11:32 Blood Culture - Final Blood Diabetes panel 05/14/21 05/15/21 Range/Units 11:32 03:26 Sodium 134 L 134 L (137-145) mmol/L Potassium 4.8 6.5 H* (3.5-5.1) mmol/L Chloride 99 100 (98-107) mmol/L Carbon Dioxide 18 L 14 L (22-30) mmol/L BUN 74 H 81 H (9-20) mg/dL Creatinine 10.70 H* 11.75 H* (0.66-1.25) mg/dL Glucose 144 H 271 H (74-99) mg/dL Calcium 8.6 7.5 L (8.4-10.2) mg/dL AST 41 72 H (17-59) U/L ALT 20 25 (4-49) U/L Alkaline Phosphatase 146 H 156 H (38-126) U/L Total Protein 6.3 6.5 (6.3-8.2) g/dL Albumin 3.6 3.7 (3.5-5.0) g/dL Calcium panel 05/14/21 05/15/21 Range/Units 11:32 03:26 Calcium 8.6 7.5 L (8.4-10.2) mg/dL Albumin 3.6 3.7 (3.5-5.0) g/dL Pituitary panel 05/14/21 05/15/21 Range/Units 11:32 03:26 Sodium 134 L 134 L (137-145) mmol/L Potassium 4.8 6.5 H* (3.5-5.1) mmol/L Chloride 99 100 (98-107) mmol/L Carbon Dioxide 18 L 14 L (22-30) mmol/L BUN 74 H 81 H (9-20) mg/dL Creatinine 10.70 H* 11.75 H* (0.66-1.25) mg/dL Glucose 144 H 271 H (74-99) mg/dL Calcium 8.6 7.5 L (8.4-10.2) mg/dL Adrenal panel 05/14/21 05/15/21 Range/Units 11:32 03:26 Sodium 134 L 134 L (137-145) mmol/L Potassium 4.8 6.5 H* (3.5-5.1) mmol/L Chloride 99 100 (98-107) mmol/L Carbon Dioxide 18 L 14 L (22-30) mmol/L BUN 74 H 81 H (9-20) mg/dL Creatinine 10.70 H* 11.75 H* (0.66-1.25) mg/dL Glucose 144 H 271 H (74-99) mg/dL Calcium 8.6 7.5 L (8.4-10.2) mg/dL Total Bilirubin 0.4 0.4 (0.2-1.3) mg/dL AST 41 72 H (17-59) U/L ALT 20 25 (4-49) U/L Alkaline Phosphatase 146 H 156 H (38-126) U/L Total Protein 6.3 6.5 (6.3-8.2) g/dL Albumin 3.6 3.7 (3.5-5.0) g/dL Assessment and Plan Assessment: 1. Bacteremia, hemodialysis port as possible infectious site 2. Pneumonia 3. History diabetes mellitus 4. History of peripheral arterial disease status post right [id number] amputation 5. End-stage renal disease on hemodialysis. Plan: 1. Continue IV antibiotics as ordered 2. Continue hemodialysis as ordered per nephrology 3. Await final blood culture 4. Vascular surgery will be on standby if tunneled dialysis catheter needs to be removed and replaced. Patient will need to hold Eliquis 48 hours prior. Thank you for this consultation and allowing us take part in the plan of care of your patient during his hospital stay The impression and plan of care has been dictated as directed. Dr. Turner I performed a history and examination of this patient, discussed the same with the dictator. I agree with the dictator's note ,documented as a scribe. Any additional findings or plans will be noted.
--- NOTE | 2021-05-15 14:39 | CONS ---
CONSULTATION REASON FOR CONSULT: End-stage renal disease. HISTORY OF PRESENT ILLNESS: Patient is a 46-year-old male with end-stage renal disease on home hemodialysis. Currently patient has a right IJ PermCath. However, he has had a hero graft and multiple other accesses placed in his left arm which have clotted off multiple times. He was admitted to the hospital with complaints of weakness, fatigue. He was found to have a fever of 104 degrees Fahrenheit and became significantly hypotensive. The patient's blood cultures are growing Staph aureus. He was started on Levophed and admitted to the ICU. The patient denied any significant fever, chills. There is no drainage from the site of the PermCath. None of his other accesses appear to be tender. He denies any wounds. He denies any nausea, vomiting or diarrhea. The patient has had decreased oral intake. PAST MEDICAL HISTORY: End-stage renal disease, recent large PE, currently maintained on anticoagulation; status post EKOS procedure, type 2 diabetes, gastroesophageal reflux disease, hyperlipidemia, CKD mineral bone disorder, peripheral vascular disease, hyperlipidemia, pneumonia, history of COVID pneumonia. PAST SURGICAL HISTORY: Dialysis catheter placement and removal, peritoneal dialysis catheter placement and removal, previous PermCath, multiple accesses in the left arm which have clotted, EKOS procedure 03/19/2021. SOCIAL HISTORY: Negative for smoking, drug abuse or alcohol abuse. MEDICATIONS: Medications prior to admission included Lipitor, Dialyvite, vitamin D2, Prilosec, Lasix Lyrica, heparin, Reglan, midodrine, Zofran, Keppra, Eliquis, PhosLo. ALLERGIES: None. REVIEW OF SYSTEMS: As per HPI. Other systems negative. EXAMINATION: Patient is comfortable, awake. He is not in any acute distress. Currently seen on dialysis. Blood pressure 126/75, heart rate 87 per minute, he is afebrile. Examination of the heart S1, S2. Examination of lungs, decreased breath sounds at the bases. Abdomen is soft, obese. Examination of lower extremities shows no significant edema. Right BKA stump is unremarkable. [employer] exam grossly intact. LAB: Show sodium of 134, potassium 6.5, chloride 100, CO2 is 14, BUN 81, serum creatinine 11.75. ASSESSMENT: 1. End-stage renal disease, on home hemodialysis. Patient is being dialyzed currently. We will dialyze him again tomorrow. 2. Hyperkalemia. Serum potassium increased significantly since yesterday. Rule out underlying gastrointestinal bleed. 3. Sepsis secondary to Staph aureus bacteremia, source is most likely PermCath. No other open wounds noted. 4. Recent massive PE status post EKOS procedure in February of 2021. 5. Anemia of chronic disease. 6. Chronic kidney disease mineral bone disorder. 7. Chronic hypotension, maintained on midodrine as outpatient. 8. Peripheral vascular disease, status post right BKA plan. 9. Volume overload, currently improved. PLAN: Discontinue IV fluids. Repeat hemodialysis in a.m. Continue with midodrine. Continue antibiotics. Consult Infectious Disease. If the blood cultures grow Staph MRSA then the PermCath will need to be discontinued. However, we may be able to salvage the catheter if it is MSSA and patient is hemodynamically stable. Thank you for this consultation. We will continue to follow the patient with you during his hospitalization. MMODL / IJN: [id number] /
--- NOTE | 2021-05-15 14:41 | P.PN ---
Subjective Progress Note Date: 05/15/21 Patient is a 46-year-old male with a history of diabetes mellitus on insulin pump, end-stage renal disease on hemodialysis, peripheral vascular disease, and recent diagnosis of massive pulmonary embolism requiring EKOS system who presented to the emergency department secondary to altered mentation, fever, and lethargy. On arrival to the ER he had a temperature of 104 and a pulse of 105. Laboratory analysis shows white blood cell count 21.6, hemoglobin 10.5, sodium 134, BUN 74, creatinine 10.7, troponin 0.089, BNP 74,100, cold was negative. Chest x-ray showed patchy bilateral areas of infiltrate with density in the right upper lobe concerning for pneumonia with increased vascular congestion. The ER he was given a dose of Rocephin and vancomycin. He was persistently hypotensive despite 1 L of IV fluid and therefore was started on levo. He was admitted to the ICU for further monitoring. He was found to have stap bacteremia likely due to infected catheter. Nephrology, critical care, vascular surgery, and ID were consulted. By the morning after admission patient had an elevated creatinine to 6.5 and was started on dialysis. His blood pressure had improved Levophed was off by 6:30am on 05/15. Patient seen and examined at bedside. He is still very lethargic. He is having some shortness of breath, no nausea no chest pain, no diarrhea. He reports that his chest graft was placed approximately 6 months ago at [facility] and is waiting to mature. His dialysis catheter was also placed at [facility]. He has no history of prior dialysis catheter infections. General: ill appearing, mild distress, appears at stated age Derm: warm, dry Head: atraumatic, normocephalic, symmetric Eyes: EOMI, no lid lag, anicteric sclera Mouth: no lip lesion, mucus membranes moist Cardiovascular: S1S2 reg, no murmur, positive posterior tibial pulse left, Lungs: Course bs bilateral, no rhonchi, no rales , no accessory muscle use Abdominal: soft, nontender to palpation, no guarding, no appreciable organomegaly Ext: no gross muscle atrophy, no edema, no contractures Neuro: CN II-XI grossly intact, no focal neuro deficits Psych: lethargic oriented, appropriate affect Septic shock, due to staph bacteremia, toxic metabolic encephalopathy secondary to Septic shock - Covid testing was negative - off levophed - Pulmonary recs appreciated - ID recs - vascular recs - likely will need HD cath changed. ? best timing Acute hypoxic respiratory failure - pulm recs - wean O2 as able Recent Massive Pulmonary embolism - continue with eliquis, will need to hold for 48 hours before changing HD cath. Thrombocytopenia - likely reactive - follow CBC ESRD on HD - consult nephrology Diabetes mellitus type 2 requiring insulin pump -Secondary to altered mentation will stop insulin pump -Sliding-scale insulin -Levemir 10 units am and PM -Hemoglobin A1c from 04/08/2110 Lactic acidosis secondary to above -IV fluids -Repeat lactic acid Troponin elevation, likely secondary to end-stage renal disease -flat ACS ruled out Chronic: Obesity with BMI 41.6 Dyslipidemia Peripheral arterial disease status post right BKA Dyslipidemia Anemia of chronic disease, likely chronic renal disease DVT prophylaxis: eliquis Objective - Vital Signs Vital signs: Vital Signs Temp 97.8 F 05/15/21 12:00 Pulse 73 05/15/21 14:15 Resp 8 L 05/15/21 14:15 BP 90/53 05/15/21 14:15 Pulse Ox 94 L 05/15/21 14:15 Intake & Output 05/14/21 05/15/21 05/15/21 18:59 06:59 18:59 Intake Total 130 708.253 Output Total 30 0 0 Balance 100 708.253 Weight 102.4 kg 105.4 kg Intake: IV 130 1760 590 Magnesium Sulfate-D5w Pmx 200 1 gm In Dextrose/Water 1 100ml.bag @ 100 mls/hr IVPB Q1H GABY Rx#: [id number] Sodium Chloride 0.9% 1, 130 1560 590 000 ml @ 40 mls/hr IV . Q24H GABY Rx#:[id number] Intake, IV Titration 254.000 0.253 Amount Norepinephrine 4 mg In 254.000 0.253 Sodium Chloride 0.9% 250 ml @ 0.05 MCG/KG/MIN 19. 01 mls/hr IV .[id number] GABY Rx#:[id number] Oral 118 Output: Urine 30 0 0 Other: # Voids 0 # Bowel Movements 1 - Labs CBC & Chem 7: 05/15/21 03:26 05/15/21 03:26 Labs: Abnormal Lab Results - Last 24 Hours (Table) 05/14/21 05/14/21 05/14/21 Range/Units 14:53 15:54 17:15 WBC (3.8-10.6) k/uL RBC (4.30-5.90) m/uL Hgb (13.0-17.5) gm/dL Hct (39.0-53.0) % RDW (11.5-15.5) % Plt Count (150-450) k/uL ABG pH (7.35-7.45) ABG pCO2 (35-45) mmHg ABG pO2 (83-108) mmHg ABG HCO3 (21-25) mmol/L ABG O2 Saturation (94-97) % Sodium (137-145) mmol/L Potassium (3.5-5.1) mmol/L Carbon Dioxide (22-30) mmol/L BUN (9-20) mg/dL Creatinine (0.66-1.25) mg/dL Glucose (74-99) mg/dL POC Glucose (mg/dL) 140 H 160 H (75-99) mg/dL Plasma Lactic Acid Steven 4.3 H* (0.7-2.0) mmol/L Calcium (8.4-10.2) mg/dL AST (17-59) U/L Alkaline Phosphatase (38-126) U/L Troponin I (0.000-0.034) ng/mL Procalcitonin (0.02-0.09) ng/mL Urine Protein (Negative) Urine Glucose (UA) (Negative) Urine Blood (Negative) Ur Leukocyte Esterase (Negative) Urine RBC (0-5) /hpf Urine WBC (0-5) /hpf Ur Squamous Epith Cells (0-4) /hpf Amorphous Sediment (None) /hpf Urine Bacteria (None) /hpf Urine Mucus (None) /hpf 05/14/21 05/14/21 05/14/21 Range/Units 18:10 18:10 18:24 WBC (3.8-10.6) k/uL RBC (4.30-5.90) m/uL Hgb (13.0-17.5) gm/dL Hct (39.0-53.0) % RDW (11.5-15.5) % Plt Count (150-450) k/uL ABG pH (7.35-7.45) ABG pCO2 (35-45) mmHg ABG pO2 (83-108) mmHg ABG HCO3 (21-25) mmol/L ABG O2 Saturation (94-97) % Sodium (137-145) mmol/L Potassium (3.5-5.1) mmol/L Carbon Dioxide (22-30) mmol/L BUN (9-20) mg/dL Creatinine (0.66-1.25) mg/dL Glucose (74-99) mg/dL POC Glucose (mg/dL) (75-99) mg/dL Plasma Lactic Acid Steven (0.7-2.0) mmol/L Calcium (8.4-10.2) mg/dL AST (17-59) U/L Alkaline Phosphatase (38-126) U/L Troponin I 0.056 H* (0.000-0.034) ng/mL Procalcitonin >100.00 H (0.02-0.09) ng/mL Urine Protein 3+ H (Negative) Urine Glucose (UA) Trace H (Negative) Urine Blood Moderate H (Negative) Ur Leukocyte Esterase Large H (Negative) Urine RBC 39 H (0-5) /hpf Urine WBC >182 H (0-5) /hpf Ur Squamous Epith Cells 5 H (0-4) /hpf Amorphous Sediment Rare H (None) /hpf Urine Bacteria Many H (None) /hpf Urine Mucus Rare H (None) /hpf 05/14/21 05/14/21 05/15/21 Range/Units 19:26 21:00 03:26 WBC 23.4 H (3.8-10.6) k/uL RBC 3.29 L (4.30-5.90) m/uL Hgb 10.2 L (13.0-17.5) gm/dL Hct 31.9 L (39.0-53.0) % RDW 16.2 H (11.5-15.5) % Plt Count 70 L (150-450) k/uL ABG pH 7.14 L* (7.35-7.45) ABG pCO2 52 H (35-45) mmHg ABG pO2 34 L* (83-108) mmHg ABG HCO3 18 L (21-25) mmol/L ABG O2 Saturation 48.9 L (94-97) % Sodium (137-145) mmol/L Potassium (3.5-5.1) mmol/L Carbon Dioxide (22-30) mmol/L BUN (9-20) mg/dL Creatinine (0.66-1.25) mg/dL Glucose (74-99) mg/dL POC Glucose (mg/dL) 253 H (75-99) mg/dL Plasma Lactic Acid Steven (0.7-2.0) mmol/L Calcium (8.4-10.2) mg/dL AST (17-59) U/L Alkaline Phosphatase (38-126) U/L Troponin I (0.000-0.034) ng/mL Procalcitonin (0.02-0.09) ng/mL Urine Protein (Negative) Urine Glucose (UA) (Negative) Urine Blood (Negative) Ur Leukocyte Esterase (Negative) Urine RBC (0-5) /hpf Urine WBC (0-5) /hpf Ur Squamous Epith Cells (0-4) /hpf Amorphous Sediment (None) /hpf Urine Bacteria (None) /hpf Urine Mucus (None) /hpf 05/15/21 05/15/21 05/15/21 Range/Units 03:26 06:43 11:49 WBC (3.8-10.6) k/uL RBC (4.30-5.90) m/uL Hgb (13.0-17.5) gm/dL Hct (39.0-53.0) % RDW (11.5-15.5) % Plt Count (150-450) k/uL ABG pH (7.35-7.45) ABG pCO2 (35-45) mmHg ABG pO2 (83-108) mmHg ABG HCO3 (21-25) mmol/L ABG O2 Saturation (94-97) % Sodium 134 L (137-145) mmol/L Potassium 6.5 H* (3.5-5.1) mmol/L Carbon Dioxide 14 L (22-30) mmol/L BUN 81 H (9-20) mg/dL Creatinine 11.75 H* (0.66-1.25) mg/dL Glucose 271 H (74-99) mg/dL POC Glucose (mg/dL) 285 H 161 H (75-99) mg/dL Plasma Lactic Acid Steven (0.7-2.0) mmol/L Calcium 7.5 L (8.4-10.2) mg/dL AST 72 H (17-59) U/L Alkaline Phosphatase 156 H (38-126) U/L Troponin I (0.000-0.034) ng/mL Procalcitonin (0.02-0.09) ng/mL Urine Protein (Negative) Urine Glucose (UA) (Negative) Urine Blood (Negative) Ur Leukocyte Esterase (Negative) Urine RBC (0-5) /hpf Urine WBC (0-5) /hpf Ur Squamous Epith Cells (0-4) /hpf Amorphous Sediment (None) /hpf Urine Bacteria (None) /hpf Urine Mucus (None) /hpf Microbiology - Last 24 Hours (Table) 05/14/21 11:32 Blood Culture Gram Stain - Preliminary Blood Blood Culture - Preliminary Staphylococcus aureus 05/14/21 18:24 Urine Culture - Preliminary Urine,Voided 05/14/21 12:00 Blood Culture Gram Stain - Preliminary Blood 05/14/21 12:00 Blood Culture - Final Blood 05/14/21 11:32 Blood Culture - Final Blood
[2021-05-15 16:51] LABS: Glucose,Whole Blood 202 mg/dL (75-99)
[2021-05-15] MEDS ORDERED: VANCOMYCIN 1,500 MG in SODIUM CHLORIDE 0.9% 250 ML IVPB ONE (20:00)
[2021-05-15 20:06] LABS: Glucose,Whole Blood 249 mg/dL (75-99)
[2021-05-15] MEDS: INSULIN DETEMIR (LEVEMIR) 100 UNIT/ML SYR SQ SCH (20:20)
[2021-05-15] MEDS: ATORVASTATIN 40 MG TAB PO SCH (20:22)
[2021-05-16 05:28] LABS: Anisocytosis Slight; Basophils % (A) 0 %; Eosinophils % (A) 0 %; HCT 30.7 % (39.0-53.0); HGB 9.7 gm/dL (13.0-17.5); Hypochromasia Moderate; Lymphocytes # (A) 1.1 k/uL (1.0-4.8); Lymphocytes % (A) 9 %; MCH 29.6 pg (25.0-35.0); MCHC 31.5 g/dL (31.0-37.0); MCV 93.8 fL (80.0-100.0); Mean Platelet Volume 12.7; Monocytes # (A) 0.4 k/uL (0-1.0); Monocytes % (A) 3 %; Neutrophils # (A) 10.4 k/uL (1.3-7.7); Neutrophils % (A) 85 %; RBC 3.27 m/uL (4.30-5.90); RDW 16.9 % (11.5-15.5); WBC 12.2 k/uL (3.8-10.6)
[2021-05-16 05:30] LABS: Calcium 7.4 mg/dL (8.4-10.2)
[2021-05-16] MEDS: oxyCODONE-APAP 10-325MG 1 EACH TAB PO SCH ×4 (06:32→23:46)
[2021-05-16 06:54] LABS: Glucose,Whole Blood 197 mg/dL (75-99)
[2021-05-16] MEDS: METOCLOPRAMIDE 5 MG TAB PO SCH ×2 (06:57→11:51)
[2021-05-16] MEDS: PANTOPRAZOLE 40 MG TABLET PO SCH (06:57)
[2021-05-16] MEDS: INSULIN ASPART (NovoLOG) 100 UNIT/ML VIAL SQ SCH ×4 (06:57→20:27)
[2021-05-16] MEDS ORDERED: INSULIN DETEMIR (LEVEMIR) 100 UNIT/ML SYR SQ SCH ×2 (07:00→21:00)
[2021-05-16 07:01] LABS: Platelet Count 69 k/uL (150-450)
--- NOTE | 2021-05-16 07:02 | P.CONS ---
History of Present Illness - Reason for Consult Consult date: 05/15/21 Bacteremia Requesting physician: Cecily Abdalla - Chief Complaint Chills not feeling well x few days - History of Present Illness Patient is a 46-year-old male with a past medical history significant for end- stage renal disease on hemodialysis through the right subclavian permacatheter placed about 6 months ago patient presented to [facility] ER yesterday morning for evaluation of fever and lethargy patient symptom has been going on for a day or 2 before presentation to the hospital has been mostly fever with chills lethargy and empty mentation patient denies having any URI symptoms no chest pain did have some shortness of breath he did have a minimal cough not bringing up any sputum no nausea no vomiting no abdominal pain or any diarrhea 37 the patient was evaluated by ER on arrival to the ER the patient did have a fever of 104 degrees while in the right patient was tachycardic on presentation to the hospital no significant hypoxemia has been documented since admission he did have white count of 21,000 is up to 23,000 today,Creatinine is elevated AST was mildly elevated urine has been positive pisano PCR has been negative x2 patient did have a chest x-ray patchy bilateral areas of infiltrates more confluent density in the right upper lobe correlate for pneumonia patient has been treated with Rocephin and vancomycin with a blood cultures coming back positive for Staphylococcus infectious disease was consulted for further management of antibiotic therapy Review of Systems Positive point has been mentioned in the HPI rest of the systems are negative Past Medical History Past Medical History: Diabetes Mellitus, Dialysis, GERD/Reflux, Hyperlipidemia, Pulmonary Embolus (PE), Renal Disease, Seizure Disorder, Syncope Additional Past Medical History / Comment(s): constipation, anemia, peripheral vascular disease, diabetes mellitus on insulin pump for blood sugar control, previous history of massive pulmonary embolism - ECOS, hyperlipidemia, HD at home History of Any Multi-Drug Resistant Organisms: None Reported Additional Past Surgical History / Comment(s): tom cataract, peritoneal dialysis catheter rt side, ECOS 03/19/21, [facility] HD site left chest, right forearm fistula - no longer active, left arm fistula - no longer active, right chest HD temp. HD cath., RBKA Past Anesthesia/Blood Transfusion Reactions: No Reported Reaction Past Psychological History: Anxiety, Depression Smoking Status: Never smoker Past Alcohol Use History: None Reported Past Drug Use History: None Reported - Past Family History Mother Family Medical History: Cancer Father Family Medical History: Dementia Medications and Allergies Home Medications Medication Instructions Recorded Confirmed Type Atorvastatin [Lipitor] 40 mg PO HS 01/31/17 05/14/21 History Dialyvite 1 tab PO DAILY 01/31/17 05/14/21 History Ergocalciferol [Vitamin D2 50,000 unit PO Q14D 01/31/17 05/14/21 History (DRISDOL)] INSULIN LISPRO (For Pump) [humaLOG 0.01 units SQ-PUMP CONTINUOUS 01/31/17 05/14/21 History (For Pump)] Omeprazole [PriLOSEC] 20 mg PO BID 01/31/17 05/14/21 History Timolol [Betimol 0.5% Ophth Soln] 1 drop RIGHT EYE BID 01/31/17 05/14/21 History Furosemide [Lasix] 80 mg PO BID 10/01/20 05/14/21 History Pregabalin [Lyrica] 200 mg PO TID 10/01/20 05/14/21 History oxyCODONE-APAP 10-325MG [Percocet 1 tab PO Q6H 10/01/20 05/14/21 History 10-325 mg] Heparin Sodium,Porcine [Heparin 64,000 units MISCELLANE MOTUWEFRSA 03/16/21 0 05/14/21 History Sodium] Metoclopramide [Reglan] 5 mg PO TID-W/MEALS 03/16/21 05/14/21 History Midodrine HCl [ProAmatine] 10 mg PO TID 03/16/21 05/14/21 History Ondansetron HCl [Zofran] 4 mg PO BID PRN 03/16/21 05/14/21 History levETIRAcetam [Keppra] 500 mg PO Q12HR #60 tab 04/15/21 05/14/21 Rx Apixaban [Eliquis] 5 mg PO BID 05/14/21 05/14/21 History Calcium Acetate [Phoslo] 667 mg PO DAILY 05/14/21 05/14/21 History Allergies Allergy/AdvReac Type Severity Reaction Status Date / Time No Known Allergies Allergy Verified 04/12/21 12:43 Physical Exam Vitals: Vital Signs Temp Pulse Resp BP Pulse Ox 05/15/21 11:00 87 12 126/75 94 L 05/15/21 10:00 78 12 104/74 96 05/15/21 09:00 78 10 L 99/83 96 05/15/21 08:24 94 L 05/15/21 08:00 97.7 F 75 8 L 100/75 94 L 05/15/21 07:00 76 86/69 93 L 05/15/21 06:00 81 15 100/69 94 L 05/15/21 05:00 73 101/69 93 L 05/15/21 04:00 97.7 F 73 100/73 94 L 05/15/21 03:00 71 90/74 94 L 05/15/21 02:00 71 18 103/78 94 L 05/15/21 01:00 74 14 98/74 95 05/15/21 00:00 97.5 F L 87 16 105/64 94 L 05/14/21 23:08 75 21 85/61 93 L 05/14/21 23:00 74 22 86/67 93 L 05/14/21 22:00 80 12 98/68 95 05/14/21 21:00 93 15 105/67 94 L 05/14/21 20:00 97.8 F 89 16 93/79 94 L 05/14/21 19:35 95 05/14/21 19:00 92 18 99/67 95 05/14/21 18:45 96 15 96/58 95 05/14/21 18:30 98 16 115/60 94 L 05/14/21 18:15 96 18 102/60 93 L 05/14/21 18:00 97 16 91/42 94 L 05/14/21 17:45 92 20 91/42 94 L 05/14/21 17:30 98.4 F 96 16 102/59 93 L 05/14/21 16:19 94 20 101/58 95 05/14/21 15:57 90 20 94/60 100 05/14/21 14:50 98.0 F 96 20 82/39 96 05/14/21 13:26 96 22 75/28 92 L 05/14/21 12:59 99.8 F H 104 H 20 73/26 93 L 05/14/21 11:59 110 H 22 134/96 90 L Intake and Output 05/14/21 05/15/2121 22:59 06:59 14:59 Intake Total 850 1294.000 470.253 Output Total 30 0 0 Balance 820 1294.000 470.253 Intake: IV 850 1040 470 Magnesium Sulfate-D5w Pmx 200 1 gm In Dextrose/Water 1 100ml.bag @ 100 mls/hr IVPB Q1H GABY Rx#: [id number] Sodium Chloride 0.9% 1, 650 1040 470 000 ml @ 40 mls/hr IV . Q24H GABY Rx#:[id number] Intake, IV Titration 254.000 0.253 Amount Norepinephrine 4 mg In 254.000 0.253 Sodium Chloride 0.9% 250 ml @ 0.05 MCG/KG/MIN 19. 01 mls/hr IV .[id number] GABY Rx#:[id number] Output: Urine 30 0 0 Other: # Voids 0 # Bowel Movements 1 Weight 102.4 kg 105.4 kg GENERAL DESCRIPTION: Middle-aged male lying in bed, no distress. No tachypnea or accessory muscle of respiration use. HEENT: Shows Pallor , no scleral icterus. Oral mucous membrane is dry. No pharyngeal erythema or thrush NECK: Trachea central, no thyromegaly. LUNGS: Unlabored breathing. Decreased breath sound at the base. No wheeze or crackle. HEART: S1, S2, regular rate and rhythm. No loud murmur ABDOMEN: Soft, no tenderness , guarding or rigidity, no organomegaly EXTREMITIES: No edema of feet. SKIN: No rash, no masses palpable. NEUROLOGICAL: The patient is awake, alert, oriented x3, mood and affect normal. Results CBC & Chem 7: 05/15/21 03:26 05/15/21 03:26 Labs: Abnormal Lab Results - Last 24 Hours (Table) 05/14/21 05/14/21 05/14/21 Range/Units 11:32 11:32 11:41 WBC 21.6 H (3.8-10.6) k/uL RBC 3.60 L (4.30-5.90) m/uL Hgb 10.5 L (13.0-17.5) gm/dL Hct 33.4 L (39.0-53.0) % RDW 16.2 H (11.5-15.5) % Plt Count 89 L (150-450) k/uL Neutrophils # 18.8 H (1.3-7.7) k/uL ABG pH (7.35-7.45) ABG pCO2 (35-45) mmHg ABG pO2 (83-108) mmHg ABG HCO3 (21-25) mmol/L ABG O2 Saturation (94-97) % Sodium 134 L (137-145) mmol/L Potassium (3.5-5.1) mmol/L Carbon Dioxide 18 L (22-30) mmol/L BUN 74 H (9-20) mg/dL Creatinine 10.70 H* (0.66-1.25) mg/dL Glucose 144 H (74-99) mg/dL POC Glucose (mg/dL) (75-99) mg/dL Plasma Lactic Acid Steven (0.7-2.0) mmol/L Calcium (8.4-10.2) mg/dL Magnesium 1.3 L (1.6-2.3) mg/dL AST (17-59) U/L Alkaline Phosphatase 146 H (38-126) U/L Creatine Kinase 440 H (55-170) U/L Troponin I 0.089 H* (0.000-0.034) ng/mL Procalcitonin (0.02-0.09) ng/mL Urine Protein (Negative) Urine Glucose (UA) (Negative) Urine Blood (Negative) Ur Leukocyte Esterase (Negative) Urine RBC (0-5) /hpf Urine WBC (0-5) /hpf Ur Squamous Epith Cells (0-4) /hpf Amorphous Sediment (None) /hpf Urine Bacteria (None) /hpf Urine Mucus (None) /hpf 05/14/21 05/14/21 05/14/21 Range/Units 14:53 15:54 17:15 WBC (3.8-10.6) k/uL RBC (4.30-5.90) m/uL Hgb (13.0-17.5) gm/dL Hct (39.0-53.0) % RDW (11.5-15.5) % Plt Count (150-450) k/uL Neutrophils # (1.3-7.7) k/uL ABG pH (7.35-7.45) ABG pCO2 (35-45) mmHg ABG pO2 (83-108) mmHg ABG HCO3 (21-25) mmol/L ABG O2 Saturation (94-97) % Sodium (137-145) mmol/L Potassium (3.5-5.1) mmol/L Carbon Dioxide (22-30) mmol/L BUN (9-20) mg/dL Creatinine (0.66-1.25) mg/dL Glucose (74-99) mg/dL POC Glucose (mg/dL) 140 H 160 H (75-99) mg/dL Plasma Lactic Acid Steven 4.3 H* (0.7-2.0) mmol/L Calcium (8.4-10.2) mg/dL Magnesium (1.6-2.3) mg/dL AST (17-59) U/L Alkaline Phosphatase (38-126) U/L Creatine Kinase (55-170) U/L Troponin I (0.000-0.034) ng/mL Procalcitonin (0.02-0.09) ng/mL Urine Protein (Negative) Urine Glucose (UA) (Negative) Urine Blood (Negative) Ur Leukocyte Esterase (Negative) Urine RBC (0-5) /hpf Urine WBC (0-5) /hpf Ur Squamous Epith Cells (0-4) /hpf Amorphous Sediment (None) /hpf Urine Bacteria (None) /hpf Urine Mucus (None) /hpf 05/14/21 05/14/21 05/14/21 Range/Units 18:10 18:10 18:24 WBC (3.8-10.6) k/uL RBC (4.30-5.90) m/uL Hgb (13.0-17.5) gm/dL Hct (39.0-53.0) % RDW (11.5-15.5) % Plt Count (150-450) k/uL Neutrophils # (1.3-7.7) k/uL ABG pH (7.35-7.45) ABG pCO2 (35-45) mmHg ABG pO2 (83-108) mmHg ABG HCO3 (21-25) mmol/L ABG O2 Saturation (94-97) % Sodium (137-145) mmol/L Potassium (3.5-5.1) mmol/L Carbon Dioxide (22-30) mmol/L BUN (9-20) mg/dL Creatinine (0.66-1.25) mg/dL Glucose (74-99) mg/dL POC Glucose (mg/dL) (75-99) mg/dL Plasma Lactic Acid Steven (0.7-2.0) mmol/L Calcium (8.4-10.2) mg/dL Magnesium (1.6-2.3) mg/dL AST (17-59) U/L Alkaline Phosphatase (38-126) U/L Creatine Kinase (55-170) U/L Troponin I 0.056 H* (0.000-0.034) ng/mL Procalcitonin >100.00 H (0.02-0.09) ng/mL Urine Protein 3+ H (Negative) Urine Glucose (UA) Trace H (Negative) Urine Blood Moderate H (Negative) Ur Leukocyte Esterase Large H (Negative) Urine RBC 39 H (0-5) /hpf Urine WBC >182 H (0-5) /hpf Ur Squamous Epith Cells 5 H (0-4) /hpf Amorphous Sediment Rare H (None) /hpf Urine Bacteria Many H (None) /hpf Urine Mucus Rare H (None) /hpf 05/14/21 05/14/21 05/15/21 Range/Units 19:26 21:00 03:26 WBC 23.4 H (3.8-10.6) k/uL RBC 3.29 L (4.30-5.90) m/uL Hgb 10.2 L (13.0-17.5) gm/dL Hct 31.9 L (39.0-53.0) % RDW 16.2 H (11.5-15.5) % Plt Count 70 L (150-450) k/uL Neutrophils # (1.3-7.7) k/uL ABG pH 7.14 L* (7.35-7.45) ABG pCO2 52 H (35-45) mmHg ABG pO2 34 L* (83-108) mmHg ABG HCO3 18 L (21-25) mmol/L ABG O2 Saturation 48.9 L (94-97) % Sodium (137-145) mmol/L Potassium (3.5-5.1) mmol/L Carbon Dioxide (22-30) mmol/L BUN (9-20) mg/dL Creatinine (0.66-1.25) mg/dL Glucose (74-99) mg/dL POC Glucose (mg/dL) 253 H (75-99) mg/dL Plasma Lactic Acid Steven (0.7-2.0) mmol/L Calcium (8.4-10.2) mg/dL Magnesium (1.6-2.3) mg/dL AST (17-59) U/L Alkaline Phosphatase (38-126) U/L Creatine Kinase (55-170) U/L Troponin I (0.000-0.034) ng/mL Procalcitonin (0.02-0.09) ng/mL Urine Protein (Negative) Urine Glucose (UA) (Negative) Urine Blood (Negative) Ur Leukocyte Esterase (Negative) Urine RBC (0-5) /hpf Urine WBC (0-5) /hpf Ur Squamous Epith Cells (0-4) /hpf Amorphous Sediment (None) /hpf Urine Bacteria (None) /hpf Urine Mucus (None) /hpf 05/15/21 05/15/21 Range/Units 03:26 06:43 WBC (3.8-10.6) k/uL RBC (4.30-5.90) m/uL Hgb (13.0-17.5) gm/dL Hct (39.0-53.0) % RDW (11.5-15.5) % Plt Count (150-450) k/uL Neutrophils # (1.3-7.7) k/uL ABG pH (7.35-7.45) ABG pCO2 (35-45) mmHg ABG pO2 (83-108) mmHg ABG HCO3 (21-25) mmol/L ABG O2 Saturation (94-97) % Sodium 134 L (137-145) mmol/L Potassium 6.5 H* (3.5-5.1) mmol/L Carbon Dioxide 14 L (22-30) mmol/L BUN 81 H (9-20) mg/dL Creatinine 11.75 H* (0.66-1.25) mg/dL Glucose 271 H (74-99) mg/dL POC Glucose (mg/dL) 285 H (75-99) mg/dL Plasma Lactic Acid Steven (0.7-2.0) mmol/L Calcium 7.5 L (8.4-10.2) mg/dL Magnesium (1.6-2.3) mg/dL AST 72 H (17-59) U/L Alkaline Phosphatase 156 H (38-126) U/L Creatine Kinase (55-170) U/L Troponin I (0.000-0.034) ng/mL Procalcitonin (0.02-0.09) ng/mL Urine Protein (Negative) Urine Glucose (UA) (Negative) Urine Blood (Negative) Ur Leukocyte Esterase (Negative) Urine RBC (0-5) /hpf Urine WBC (0-5) /hpf Ur Squamous Epith Cells (0-4) /hpf Amorphous Sediment (None) /hpf Urine Bacteria (None) /hpf Urine Mucus (None) /hpf Microbiology - Last 24 Hours (Table) 05/14/21 11:32 Blood Culture Gram Stain - Preliminary Blood Blood Culture - Preliminary Staphylococcus aureus 05/14/21 18:24 Urine Culture - Preliminary Urine,Voided 05/14/21 12:00 Blood Culture Gram Stain - Preliminary Blood 05/14/21 12:00 Blood Culture - Final Blood 05/14/21 11:32 Blood Culture - Final Blood Assessment and Plan Assessment: patient presented to hospital with sepsis in this patient with fever tachycardia elevated white count along with mental status changes lethargy patient did have minimal cough no significant hypoxemia chest x-ray did show some right-sided infiltrate now with Streptococcus bacteremia source is possibly permacatheter pneumonia could be a likely contributing factor (1) Bacteremia Current Visit: Yes Status: Acute Code(s): R78.81 - BACTEREMIA SNOMED Code(s): 0273221 (2) Sepsis Current Visit: Yes Status: Acute Code(s): A41.9 - SEPSIS, UNSPECIFIED ORGANISM SNOMED Code(s): 20730319 Plan: 1-blood cultures will be repeated to document clearance of his bacteremia 2-vancomycin pharmacy to dose 3-obtain sputum for Gram stain and culture We will follow on clinical condition and cultures to further adjust medication if needed Thank you for this consultation we will follow the patient along with you Time with Patient: Greater than 30
--- NOTE | 2021-05-16 08:52 | XR ---
EXAMINATION TYPE: XR chest 1V portable DATE OF EXAM: 05/16/2021 COMPARISON: 05/15/2021 HISTORY: Shortness of breath TECHNIQUE: Single frontal view of the chest is obtained. FINDINGS: Bilateral central venous catheters stable. Chronic rib deformity noted. Heart size is prom inent and there is increased density at both lung bases. Interstitium is slightly improved. Right upp er lobe density persists . IMPRESSION: 1. Stable residual mild prominence of the central interstitial could be related to reduced inspiratio n or mild venous congestion versus interstitial pneumonitis. 2. Patchy infiltrates bilaterally are stable.
[2021-05-16] MEDS: NOREPINEPHRINE 4 MG in SODIUM CHLORIDE 0.9% 250 ML IV SCH (09:20)
[2021-05-16] MEDS: levETIRAcetam 500 MG TAB PO SCH ×2 (09:25→20:26)
[2021-05-16] MEDS: FOLIC ACID-VIT B COMPLEX-VIT C 1 CAP PO SCH (09:25)
[2021-05-16] MEDS: MIDODRINE 5 MG TAB PO SCH ×3 (09:25→20:30)
[2021-05-16] MEDS: TIMOLOL 0.5% OPHTH DROPS 5 ML BTL RIGHT EYE SCH ×2 (09:25→20:27)
[2021-05-16] MEDS: CALCIUM ACETATE 667 MG TAB PO SCH (09:25)
[2021-05-16] MEDS: PREGABALIN 100 MG CAP PO SCH ×3 (09:25→23:48)
[2021-05-16] MEDS: APIXABAN 2.5 MG TABLET PO SCH (09:25)
[2021-05-16] MEDS ORDERED: HEPARIN SODIUM 1,000 UN/ML (10ML VL) IV PRN (10:09)
--- NOTE | 2021-05-16 10:16 | P.PN ---
Subjective Progress Note Date: 05/16/21 46-year-old male patient with end-stage renal disease on hemodialysis, morbidly obese with a BMI of 41, peripheral vascular disease with previous dictation right in addition to a recent massive pulmonary embolism requiring intra- arterial thrombolytic using the EKOS SYSTEM maintained on long-term anticoagulation with Eliquis. The patient was brought into the hospital with altered mentation, fever and lethargy. His been going on for the past 12-24 hours as noted by the family. No worsening shortness of breath. The patient was becoming progressively more lethargic. He was also running higher blood pressures and higher blood sugars at home. He arrived to the ED and the patient had a T-max of 104, subsequently dropped his blood pressure down to 75/28, given half a liter of bolus and following that he was started on norepinephrine at 0.04 mcg/kg per minute. He is much more awake for now. His last hemodialysis was 2 days ago. Currently his white cell count is at 21.6. BUN is at 74 with a creatinine of 10.7. Platelet count is at 89. The lactic acid level was at 4.3. Troponin was at 0.08. ProBNP level was 74,100. COVID-19 testing is been negative. Chest x-ray showing cardiac regular with marked malaise congestion. Not on 4 L of oxygen by nasal cannula. No significant respiratory distress. The patient remains on a combination of Rocephin and vancomycin. He has a permacath over the right IJ. He also has a intra-vascular catheter in his left IJ extending to his left upper extremity. 05/15/2021, being seen in follow-up in the intensive care unit. He was admitted yesterday with septic shock. High suspicion for line infection as the patient grew staph aureus in the blood on 2 separate blood cultures. He remains on a combination of Rocephin and vancomycin. He was on pressors at the low-dose overnight and he is taken off the pressors earlier this morning. He is lethargic but he is arousable. Earlier this morning, his potassium level came back at 6.5 and his serum bicarb was at 14. The patient was given the potassium cocktail which included D50 insulin and x2 sodium bicarb and currently is undergoing hemodialysis. We are still utilizing the permacath in his right IJ. Note that he also has another graft/fistula in his left IJ extending to his left upper extremity. No signs of any respiratory distress. He has obvious signs of sleep apnea. He is currently on oxygen at 4 L per minute nasal cannula. His IV fluids currently running at 0.9 at 1 30 mL's an hour. This will be kept down to 40 mL an hour, maintenance. A repeat echocardiogram to be done today. His last echocardiogram post PE showed considerable degree of pulmonary hypertension. LV function was essentially within normal limits. On his blood work today, his white cell count is 23 with a hemoglobin of 10.2. Liver function tests are within normal limits. Troponin was admitted 0.05, repeat level. Pro-calcitonin his considerably elevated above 100. Urine cultures are still pending for now. Note that this patient undergoes hemodialysis at home. He has a below-knee amputation right lower extremity. 05/16/2021, clinically the patient is more awake. His lethargy is improved. He is able to communicate. He had several blood cultures that were positive for staph aureus. He remains on 2 g of Rocephin and IV vancomycin. The most recent blood culture from 05/14/2021 came back negative. The rest of the blood cultures are all positive. His urine culture also came back positive for presumptive staph. The patient's chest x-ray shows no evidence of any pneumonia. He remains on oxygen at 3 L with a pulse ox of 94% without any signs of any respiratory distress. He was also taken off pressors and his been off pressors for the past 24 hours. He received hemodialysis yesterday, normal schedule dialysis for today. He is being dialyzed through his permacath in his right IJ. Vascular surgery is on the case should there be any decision to replace the permacath. Otherwise, he still on antibiotics. I reviewed the echocardiogram that showed a preserved LV function. No vegetation based on the transthoracic echocardiogram. He remains on Eliquis by mouth 2.5 mg twice a day regarding his massive pulmonary embolism. We are inclined and preparing him by removing the Eliquis and putting him on IV heparin in preparation for any potent ial catheter exchange at the later stage. My suspicion is that this is a line infection rather than a urine infection. Objective - Vital Signs Vital signs: Vital Signs Temp 98.8 F 05/16/21 08:00 Pulse 79 05/16/21 10:00 Resp 10 L 05/16/21 10:00 BP 119/74 05/16/21 10:00 Pulse Ox 95 05/16/21 10:00 Intake & Output 05/15/21 05/16/21 05/16/21 18:59 06:59 18:59 Intake Total 890.685 522.535 190 Output Total 0 0 0 Balance 890.685 522.535 190 Weight 106.3 kg Intake: IV 750 520 90 Sodium Chloride 0.9% 1, 750 520 90 000 ml @ 40 mls/hr IV . Q24H [facility] Rx#:[id number] Intake, IV Titration 22.685 2.535 100 Amount Norepinephrine 4 mg In 22.685 2.535 Sodium Chloride 0.9% 250 ml @ 0.05 MCG/KG/MIN 19. 01 mls/hr IV .[id number] [facility] Rx#:[id number] cefTRIAXone 2 gm In 100 Sodium Chloride 0.9% 50 ml @ 100 mls/hr IVPB Q24HR [facility] Rx#:[id number] Oral 118 Output: Urine 0 0 0 Other: Voiding Method Urinal Urinal # Voids 0 0 0 # Bowel Movements 1 - Exam Morbidly obese, BMI of 41.6, comfortable, not in acute respiratory distress, currently on 4 L by nasal cannula Head exam was generally normal. There was no scleral icterus or corneal arcus. Mucous membranes were moist. Neck was supple and without jugular venous distension, thyromegaly, or carotid bruits. Carotids were easily palpable bilaterally. There was no adenopathy. Mallampati class IV with significant crowding of the posterior pharynx Lungs sounds are diminished specially in the lung bases along with some few crackles Heart sounds are tachycardic, positive sinus and there is no significant murmurs appreciated. Overall heart sounds are distant. Abdominal exam revealed normal bowel sounds. The abdomen was soft, non-tender, and without masses, organomegaly, or appreciable enlargement of the abdominal aorta. Extremities reveal a below-knee amputation on the right. Diminished pulses in all 4 extremities. No cyanosis or clubbing. Examination of the skin revealed no evidence of significant rashes, suspicious appearing nevi or other concerning lesions. Neurologically lethargic yet arousable. Moving all 4 extremity is without any limitation. - Labs CBC & Chem 7: 05/16/21 03:11 05/16/21 03:11 Labs: Abnormal Lab Results - Last 24 Hours (Table) 05/15/21 05/15/21 05/15/21 Range/Units 11:49 16:49 20:04 WBC (3.8-10.6) k/uL RBC (4.30-5.90) m/uL Hgb (13.0-17.5) gm/dL Hct (39.0-53.0) % RDW (11.5-15.5) % Plt Count (150-450) k/uL Neutrophils # (1.3-7.7) k/uL Chloride (98-107) mmol/L Carbon Dioxide (22-30) mmol/L BUN (9-20) mg/dL Creatinine (0.66-1.25) mg/dL Glucose (74-99) mg/dL POC Glucose (mg/dL) 161 H 202 H 249 H (75-99) mg/dL Calcium (8.4-10.2) mg/dL 05/16/21 05/16/21 05/16/21 Range/Units 03:11 03:11 06:52 WBC 12.2 H (3.8-10.6) k/uL RBC 3.27 L (4.30-5.90) m/uL Hgb 9.7 L (13.0-17.5) gm/dL Hct 30.7 L (39.0-53.0) % RDW 16.9 H (11.5-15.5) % Plt Count 69 L (150-450) k/uL Neutrophils # 10.4 H (1.3-7.7) k/uL Chloride 108 H (98-107) mmol/L Carbon Dioxide 15 L (22-30) mmol/L BUN 68 H (9-20) mg/dL Creatinine 9.35 H* (0.66-1.25) mg/dL Glucose 230 H (74-99) mg/dL POC Glucose (mg/dL) 197 H (75-99) mg/dL Calcium 7.4 L (8.4-10.2) mg/dL Microbiology - Last 24 Hours (Table) 05/14/21 18:24 Urine Culture - Preliminary Urine,Voided Presumptive Staph aureus 05/14/21 18:10 Blood Culture - Preliminary Blood No Growth after 24 hours 05/14/21 11:32 Blood Culture Gram Stain - Preliminary Blood Blood Culture - Preliminary Staphylococcus aureus Assessment and Plan Plan: 1 septic shock secondary to staph aureus, awaiting final sensitivities, currently on a combination of Rocephin and vancomycin. High likelihood for a line infection involving the right permacath. The patient also has a hero catheter in his left upper extremity. There is also a questionable staphylococcal infection in the urine. I'm not certain about this urine being the source of infection. I favor possibility of a line infection. It's likely the patient may need a permacath line exchange at a later stage. Awaiting final cultures and sensitivities regarding the staff aureus. Currently on the same antibiotic coverage. He is off pressors. He has a functional Hero in the left upper extremity. 2 hypotension , secondary to above, recovered 3 acute febrile illness secondary to above 4 acute leukocytosis white cell count is approved 5 acute hypoxic respiratory failure currently on 4 L by nasal cannula. No clear evidence of pneumonia 6 recent hospitalization for acute pulmonary embolism with RV strain pattern and the patient required intra-arterial thrombolytics with EKOS, maintained on long- term articulation with Eliquis 7 past surgical wound is on hemodialysis 8 peripheral vascular disease 9 right below-knee amputation 10 obesity with a BMI of 41.6 11 hyperlipidemia 12 previous history of pancreatitis 13 chronic anemia/anemia of chronic disease 14 mild lactic acidosis, secondary to above 15 diabetes mellitus maintained on insulin pump on outpatient basis, on Levemir insulin 16 acute hyperkalemia, improved 17 anion gap metabolic acidosis with a serum bicarb of 15 Plan Clinically improving Awaiting final cultures and sensitivities and staph aureus Echocardiogram was noted Continue Rocephin and vancomycin Replace Eliquis with IV heparin in preparation for any potential line replacement Add oral bicarb Keep patient in intensive care unit and will continue to follow make further recommendations based on his progress.
[2021-05-16] MEDS: HEPARIN SOD,PORK IN 0.45% NACL 25,000 UNIT in 0.45% NACL 1 250ML.BAG IV SCH (10:38)
--- NOTE | 2021-05-16 10:51 | P.PN ---
Subjective Progress Note Date: 05/16/21 Principal diagnosis: confusion Patient is a 46-year-old male with a history of diabetes mellitus on insulin pump, end-stage renal disease on hemodialysis, peripheral vascular disease, and recent diagnosis of massive pulmonary embolism requiring EKOS system who presented to the emergency department secondary to altered mentation, fever, and lethargy. On arrival to the ER he had a temperature of 104 and a pulse of 105. Laboratory analysis shows white blood cell count 21.6, hemoglobin 10.5, sodium 134, BUN 74, creatinine 10.7, troponin 0.089, BNP 74,100, cold was negative. Chest x-ray showed patchy bilateral areas of infiltrate with density in the right upper lobe concerning for pneumonia with increased vascular congestion. The ER he was given a dose of Rocephin and vancomycin. He was persistently hypotensive despite 1 L of IV fluid and therefore was started on levo. He was admitted to the ICU for further monitoring. He was found to have stap bacteremia likely due to infected catheter. Nephrology, critical care, vascular surgery, and ID were consulted. By the morning after admission patient had an elevated creatinine to 6.5 and was started on dialysis. His blood pressure had improved Levophed was off by 6:30am on 05/15. Blood cultures were positive for S. marianela, urine cultures was as well. Patient seen and examined at bedside. He is still very lethargic. He is having some shortness of breath, no nausea no chest pain, no diarrhea. He reports that his chest graft was placed approximately 6 months ago at [facility] and is waiting to mature. His dialysis catheter was also placed at [facility]. He has no history of prior dialysis catheter infections. General: ill appearing, mild distress, appears at stated age Derm: warm, dry Head: atraumatic, normocephalic, symmetric Eyes: EOMI, no lid lag, anicteric sclera Mouth: no lip lesion, mucus membranes moist Cardiovascular: S1S2 tachy, no murmur, positive posterior tibial pulse left, Lungs: Course bs bilateral, no rhonchi, no rales , no accessory muscle use Abdominal: soft, nontender to palpation, no guarding, no appreciable organomegaly Ext: no gross muscle atrophy, no edema, no contractures Neuro: CN II-XI grossly intact, no focal neuro deficits Psych: lethargic oriented, appropriate affect Septic shock, due to staph bacteremia, toxic metabolic encephalopathy secondary to Septic shock Staph asymptomatic bacturia (patient without symptoms and concerns for HD cath related infection) - Covid testing was negative - off levophed - Pulmonary recs appreciated - ID recs - vascular recs - likely will need HD cath changed if MRSA, change from eliquis to heparin gtt. - on TTE no vegetation and preserved EF 55-60% Acute hypoxic respiratory failure - pulm recs - wean O2 as able Recent Massive Pulmonary embolism - heparin gtt Thrombocytopenia - likely reactive - follow CBC ESRD on HD -nephrology recs Diabetes mellitus type 2 requiring insulin pump -Secondary to altered mentation will stop insulin pump -Sliding-scale insulin -Levemir 12 units am and PM -Hemoglobin A1c from 04/08/21 10. Lactic acidosis secondary to above -IV fluids -Repeat lactic acid Troponin elevation, likely secondary to end-stage renal disease -flat ACS ruled out Hyperkalemia, resolved Chronic: Obesity with BMI 41.6 Dyslipidemia Peripheral arterial disease status post right BKA Dyslipidemia Anemia of chronic disease, likely chronic renal disease DVT prophylaxis: eliquis Case discussed with Dr. Cope concern for HD cath access infection, if MRSA will need line excharge if just staph may try to treat through this as patient has difficult access. D/W Dr. Celeste will switch from eliquis to heparin gtt incase need to have HD cath exchange. Appears more consistent with line infection as patient denies any dysuria. Objective - Vital Signs Vital signs: Vital Signs Temp 98.8 F 05/16/21 08:00 Pulse 79 05/16/21 10:00 Resp 10 L 05/16/21 10:00 BP 119/74 05/16/21 10:00 Pulse Ox 95 05/16/21 10:00 Intake & Output 05/15/21 05/16/21 05/16/21 18:59 06:59 18:59 Intake Total 890.685 522.535 190 Output Total 0 0 0 Balance 890.685 522.535 190 Weight 106.3 kg Intake: IV 750 520 90 Sodium Chloride 0.9% 1, 750 520 90 000 ml @ 40 mls/hr IV . Q24H [facility] Rx#:[id number] Intake, IV Titration .685 2.535 100 Amount Norepinephrine 4 mg In 2.535 Sodium Chloride 0.9% 250 ml @ 0.05 MCG/KG/MIN 19. 01 mls/hr IV .[id number] [facility] Rx#:[id number] cefTRIAXone 2 gm In 100 Sodium Chloride 0.9% 50 ml @ 100 mls/hr IVPB Q24HR [facility] Rx#:[id number] Oral 118 Output: Urine 0 0 0 Other: Voiding Method Urinal Urinal # Voids 0 0 0 # Bowel Movements 1 - Labs CBC & Chem 7: 05/16/21 03:11 05/16/21 03:11 Labs: Abnormal Lab Results - Last 24 Hours (Table) 05/15/21 05/15/21 05/15/21 Range/Units 11:49 16:49 20:04 WBC (3.8-10.6) k/uL RBC (4.30-5.90) m/uL Hgb (13.0-17.5) gm/dL Hct (39.0-53.0) % RDW (11.5-15.5) % Plt Count (150-450) k/uL Neutrophils # (1.3-7.7) k/uL Chloride (98-107) mmol/L Carbon Dioxide (22-30) mmol/L BUN (9-20) mg/dL Creatinine (0.66-1.25) mg/dL Glucose (74-99) mg/dL POC Glucose (mg/dL) 161 H 202 H 249 H (75-99) mg/dL Calcium (8.4-10.2) mg/dL 05/16/21 05/16/21 05/16/21 Range/Units 03:11 03:11 06:52 WBC 12.2 H (3.8-10.6) k/uL RBC 3.27 L (4.30-5.90) m/uL Hgb 9.7 L (13.0-17.5) gm/dL Hct 30.7 L (39.0-53.0) % RDW 16.9 H (11.5-15.5) % Plt Count 69 L (150-450) k/uL Neutrophils # 10.4 H (1.3-7.7) k/uL Chloride 108 H (98-107) mmol/L Carbon Dioxide 15 L (22-30) mmol/L BUN 68 H (9-20) mg/dL Creatinine 9.35 H* (0.66-1.25) mg/dL Glucose 230 H (74-99) mg/dL POC Glucose (mg/dL) 197 H (75-99) mg/dL Calcium 7.4 L (8.4-10.2) mg/dL Microbiology - Last 24 Hours (Table) 05/14/21 18:24 Urine Culture - Preliminary Urine,Voided Presumptive Staph aureus 05/14/21 18:10 Blood Culture - Preliminary Blood No Growth after 24 hours 05/14/21 11:32 Blood Culture Gram Stain - Preliminary Blood Blood Culture - Preliminary Staphylococcus aureus
[2021-05-16 11:16] LABS: Partial Thromboplastin Time 29.5 sec (22.0-30.0); Prothrombin Time 10.7 sec (9.0-12.0)
[2021-05-16 11:20] LABS: Anisocytosis Slight; Basophils % (A) 0 %; Eosinophils % (A) 0 %; HCT 31.1 % (39.0-53.0); HGB 9.7 gm/dL (13.0-17.5); Hypochromasia Slight; Lymphocytes % (A) 8 %; MCH 29.3 pg (25.0-35.0); MCHC 31.3 g/dL (31.0-37.0); MCV 93.7 fL (80.0-100.0); Mean Platelet Volume 13.1; Monocytes # (A) 0.3 k/uL (0-1.0); Monocytes % (A) 3 %; Neutrophils # (A) 10.1 k/uL (1.3-7.7); Neutrophils % (A) 86 %; RBC 3.32 m/uL (4.30-5.90); WBC 11.7 k/uL (3.8-10.6)
[2021-05-16 11:21] LABS: Platelet Count 69 k/uL (150-450)
[2021-05-16] MEDS ORDERED: DARBEPOETIN ALFA 60 MCG/0.3 ML SYRINGE SQ SCH (11:30)
[2021-05-16 11:49] LABS: Glucose,Whole Blood 253 mg/dL (75-99)
--- NOTE | 2021-05-16 11:53 | PN ---
PROGRESS NOTE Patient is seen for followup for end-stage renal disease. He was admitted to the hospital with fever, weakness. He was found to be hypotensive with Staph aureus bacteremia. Currently maintained on vancomycin. Urine is also growing Staph aureus. It is unclear if it is MRSA or MSSA. The patient is hemodynamically improved. Currently off pressors. Blood pressure remains in the high 90s. The patient has had 2 treatments of dialysis with UF of about 0.5-1 L for 2 days consecutively. EXAMINATION: Today, blood pressure was 119/74, heart rate 79 per minute. He is afebrile. Examination of the heart S1, S2. Examination of the lungs, bilateral breath sounds are heard. Decreased breath sounds at bases. Abdomen: Soft, nontender. Obese. Exam of lower extremities shows no significant edema. Patient has right BKA. LAB: Show sodium 140, potassium 5.0, chloride 108, CO2 is 15, BUN 68, serum creatinine 9.35. ASSESSMENT: 1. End-stage renal disease, on home hemodialysis. The patient will be receiving his 3rd consecutive treatment today. His serum creatinine remains elevated with the acidosis as well. 2. Metabolic acidosis associated with renal failure as well as lactic acidosis. Lactic acid level was down. Patient remains acidotic. We will correct the acidosis with dialysis and I will hold off on the sodium bicarb as it will add further sodium load. 3. Volume overload on initial admission, currently improved. IV fluids have been discontinued. We will try for another 0.5-1 L today. Patient usually does not show it in his legs and it mostly develops pulmonary vascular congestion and abdominal distention with volume overload. 4. Recent massive pulmonary embolism. 5. Staph aureus bacteremia, susceptibility pending. If it is MRSA, patient will need his PermCath removed. We will continue the vancomycin in the meantime. 6. Hyperkalemia on initial admission, currently improved. PLAN: Hemodialysis today. Adjust the bicarb bath on dialysis. Can give one dose of oral sodium bicarb now. I will hold off on further oral sodium bicarb. Follow up on the blood cultures. Continue antibiotics. Add Aranesp. MMODL / IJN: [id number] /
[2021-05-16 14:42] LABS: Glucose,Whole Blood 138 mg/dL (75-99)
--- NOTE | 2021-05-16 14:47 | P.PN ---
Subjective Progress Note Date: 05/16/21 Principal diagnosis: possible infected hemodialysis catheter, sepsis Patient is seen and examined lying in bed. He is scheduled for hemodialysis today. No acute changes through the night. He has had no difficulty with his port. His been afebrile. Preliminary blood culture showing staph aureus, urine culture showing staph aureus. Objective - Vital Signs Vital signs: Vital Signs Temp 98.8 F 05/16/21 08:00 Pulse 79 05/16/21 10:00 Resp 10 L 05/16/21 10:00 BP 119/74 05/16/21 10:00 Pulse Ox 95 05/16/21 10:00 Intake & Output 05/15/21 05/16/21 05/16/21 18:59 06:59 18:59 Intake Total 890.685 522.535 190 Output Total 0 0 0 Balance 890.685 522.535 190 Weight 106.3 kg Intake: IV 750 520 90 Sodium Chloride 0.9% 1, 750 520 90 000 ml @ 40 mls/hr IV . Q24H [facility] Rx#:[id number] Intake, IV Titration 22.685 2.535 100 Amount Norepinephrine 4 mg In 22.685 2.535 Sodium Chloride 0.9% 250 ml @ 0.05 MCG/KG/MIN 19. 01 mls/hr IV .[id number] [facility] Rx#:[id number] cefTRIAXone 2 gm In 100 Sodium Chloride 0.9% 50 ml @ 100 mls/hr IVPB Q24HR [facility] Rx#:[id number] Oral 118 Output: Urine 0 0 0 Other: Voiding Method Urinal Urinal # Voids 0 0 0 # Bowel Movements 1 - Exam General appearance: The patient is alert, oriented, in no acute distress. HET: Head is normocephalic and atraumatic. Neck: Supple without lymphadenopathy. Trachea midline. Tunneled dialysis catheter with dressing and intact, no surrounding erythema or drainage. Heart: S1 S2. Regular rate and rhythm. Lungs: Clear to auscultation. Abdomen: Soft, nontender, nondistended. Extremities: Normal skin color and turgor. Right lower extremity with BKA, wrapped. Neurological: No focal deficits. Strength and sensation are grossly intact. - Labs CBC & Chem 7: 05/16/21 10:37 05/16/21 03:11 Labs: Abnormal Lab Results - Last 24 Hours (Table) 05/15/21 05/15/21 05/15/21 Range/Units 11:49 16:49 20:04 WBC (3.8-10.6) k/uL RBC (4.30-5.90) m/uL Hgb (13.0-17.5) gm/dL Hct (39.0-53.0) % RDW (11.5-15.5) % Plt Count (150-450) k/uL Neutrophils # (1.3-7.7) k/uL Chloride (98-107) mmol/L Carbon Dioxide (22-30) mmol/L BUN (9-20) mg/dL Creatinine (0.66-1.25) mg/dL Glucose (74-99) mg/dL POC Glucose (mg/dL) 161 H 202 H 249 H (75-99) mg/dL Calcium (8.4-10.2) mg/dL 05/16/21 05/16/21 05/16/21 Range/Units 03:11 03:11 06:52 WBC 12.2 H (3.8-10.6) k/uL RBC 3.27 L (4.30-5.90) m/uL Hgb 9.7 L (13.0-17.5) gm/dL Hct 30.7 L (39.0-53.0) % RDW 16.9 H (11.5-15.5) % Plt Count 69 L (150-450) k/uL Neutrophils # 10.4 H (1.3-7.7) k/uL Chloride 108 H (98-107) mmol/L Carbon Dioxide 15 L (22-30) mmol/L BUN 68 H (9-20) mg/dL Creatinine 9.35 H* (0.66-1.25) mg/dL Glucose 230 H (74-99) mg/dL POC Glucose (mg/dL) 197 H (75-99) mg/dL Calcium 7.4 L (8.4-10.2) mg/dL Microbiology - Last 24 Hours (Table) 05/14/21 18:24 Urine Culture - Preliminary Urine,Voided Presumptive Staph aureus 05/14/21 18:10 Blood Culture - Preliminary Blood No Growth after 24 hours 05/14/21 11:32 Blood Culture Gram Stain - Preliminary Blood Blood Culture - Preliminary Staphylococcus aureus Assessment and Plan Assessment: 1. Bacteremia, preliminary blood culture staph aureus 2. UTI with staph aureus 3. Pneumonia 4. History diabetes mellitus 5. History of peripheral arterial disease status post right [id number] amputation 6. End-stage renal disease on hemodialysis 7. History of recent massive pulmonary embolism treated with EKOS and anticoagulation. Plan: 1. Continue IV antibiotics as ordered 2. Continue hemodialysis as ordered per nephrology 3. Await final blood culture 4. Vascular surgery will be on standby if tunneled dialysis catheter needs to be removed and replaced the however do not recommend unless absolutely necessary as patient has poor access and has had multiple grafts that have failed. Thank you for this consultation and allowing us take part in the plan of care of your patient during his hospital stay The impression and plan of care has been dictated as directed. Dr. Pereira I performed a history and examination of this patient, discussed the same with the dictator. I agree with the dictator's note ,documented as a scribe. Any additional findings or plans will be noted.
[2021-05-16] MEDS ORDERED: SODIUM BICARBONATE TAB 650 MG TAB PO SCH (16:00)
[2021-05-16] MEDS: NAFCILLIN 2 GM in DEXTROSE 5% IN WATER 100 ML IVPB SCH ×4 (16:04→20:27)
[2021-05-16 17:23] LABS: Glucose,Whole Blood 167 mg/dL (75-99)
[2021-05-16] MEDS: METOCLOPRAMIDE 5 MG/ML 2 ML VIAL IVP SCH ×2 (17:27→23:48)
--- NOTE | 2021-05-16 17:55 | PN ---
PROGRESS NOTE DATE OF SERVICE: 05/16/2021 REASON FOR FOLLOWUP: MSSA bacteremia. INTERVAL HISTORY: Patient is afebrile. The patient is breathing slightly comfortably. The patient denies having any chest pain, shortness of breath. Occasional cough. No abdominal pain. No diarrhea. PHYSICAL EXAMINATION: Blood pressure 96/55, pulse of 73, temperature 98.5. He is 96% on 3 L nasal cannula. General description is a middle-aged male lying in bed in no distress. Respiratory system: Unlabored breathing, decreased breath sounds in the base, with no wheeze. Heart S1, S2. Regular rate and rhythm. Abdomen soft, no tenderness. LABS: Hemoglobin is 9.7. White count 11.7. Blood culture with MSSA. Blood culture from 05/14 so far negative. DIAGNOSTIC IMPRESSION AND PLAN: Patient with MSSA bacteremia concern is highly for a Perm-A-Cath infection. Urine is growing the same pathogen. However with bacteremia more likely seeded and will benefit from removal in order to cure of this infection. We will discuss with vascular surgery. The patient seems to be high risk for another catheter placement and removal of the same one. Antibiotic will be switched to nafcillin with daily blood cultures to document clearance of his bacteremia. MMODL / IJN: [id number] /
[2021-05-16 20:06] LABS: Glucose,Whole Blood 203 mg/dL (75-99)
[2021-05-16] MEDS: INSULIN DETEMIR (LEVEMIR) 100 UNIT/ML SYR SQ SCH (20:26)
[2021-05-16] MEDS: ATORVASTATIN 40 MG TAB PO SCH (20:27)
[2021-05-17] MEDS: NAFCILLIN 2 GM in DEXTROSE 5% IN WATER 100 ML IVPB SCH ×12 (02:28→21:10)
[2021-05-17] MEDS: oxyCODONE-APAP 10-325MG 1 EACH TAB PO SCH ×4 (03:28→21:23)
[2021-05-17] MEDS: HEPARIN SOD,PORK IN 0.45% NACL 25,000 UNIT in 0.45% NACL 1 250ML.BAG IV SCH ×2 (04:49→12:23)
[2021-05-17 05:21] LABS: Anisocytosis Slight; Basophils % (A) 0 %; Eosinophils # (A) 0.1 k/uL (0-0.7); Eosinophils % (A) 1 %; HCT 29.6 % (39.0-53.0); HGB 9.3 gm/dL (13.0-17.5); Hypochromasia Slight; Lymphocytes # (A) 1.3 k/uL (1.0-4.8); Lymphocytes % (A) 14 %; MCH 29.5 pg (25.0-35.0); MCHC 31.5 g/dL (31.0-37.0); MCV 93.7 fL (80.0-100.0); Monocytes # (A) 0.4 k/uL (0-1.0); Monocytes % (A) 4 %; Neutrophils # (A) 7.6 k/uL (1.3-7.7); Neutrophils % (A) 78 %; Platelet Count 71 k/uL (150-450); RBC 3.16 m/uL (4.30-5.90); RDW 16.7 % (11.5-15.5); WBC 9.7 k/uL (3.8-10.6)
[2021-05-17 05:26] LABS: Calcium 7.7 mg/dL (8.4-10.2); Potassium 3.6 mmol/L (3.5-5.1)
[2021-05-17] MEDS: METOCLOPRAMIDE 5 MG/ML 2 ML VIAL IVP SCH ×3 (05:52→17:48)
[2021-05-17 06:37] LABS: Glucose,Whole Blood 162 mg/dL (75-99)
[2021-05-17] MEDS: INSULIN ASPART (NovoLOG) 100 UNIT/ML VIAL SQ SCH ×4 (06:44→21:25)
[2021-05-17] MEDS: PANTOPRAZOLE 40 MG TABLET PO SCH (06:44)
[2021-05-17] MEDS: INSULIN DETEMIR (LEVEMIR) 100 UNIT/ML SYR SQ SCH ×2 (06:44→21:25)
[2021-05-17] MEDS ORDERED: INSULIN DETEMIR (LEVEMIR) 100 UNIT/ML SYR SQ SCH (07:00)
[2021-05-17] MEDS: NOREPINEPHRINE 4 MG in SODIUM CHLORIDE 0.9% 250 ML IV SCH (08:38)
[2021-05-17] MEDS: CALCIUM ACETATE 667 MG TAB PO SCH (09:09)
[2021-05-17] MEDS: levETIRAcetam 500 MG TAB PO SCH ×2 (09:09→21:22)
[2021-05-17] MEDS: MIDODRINE 5 MG TAB PO SCH ×3 (09:09→21:23)
[2021-05-17] MEDS: FOLIC ACID-VIT B COMPLEX-VIT C 1 CAP PO SCH (09:09)
[2021-05-17] MEDS: PREGABALIN 100 MG CAP PO SCH ×3 (09:10→21:24)
[2021-05-17] MEDS: TIMOLOL 0.5% OPHTH DROPS 5 ML BTL RIGHT EYE SCH ×2 (09:10→21:23)
--- NOTE | 2021-05-17 09:47 | P.PN ---
Subjective Progress Note Date: 05/17/21 46-year-old male patient with end-stage renal disease on hemodialysis, morbidly obese with a BMI of 41, peripheral vascular disease with previous dictation right in addition to a recent massive pulmonary embolism requiring intra- arterial thrombolytic using the EKOS SYSTEM maintained on long-term anticoagul ation with Eliquis. The patient was brought into the hospital with altered mentation, fever and lethargy. His been going on for the past 12-24 hours as noted by the family. No worsening shortness of breath. The patient was becoming progressively more lethargic. He was also running higher blood pressures and higher blood sugars at home. He arrived to the ED and the patient had a T-max of 104, subsequently dropped his blood pressure down to 75/28, given half a liter of bolus and following that he was started on norepinephrine at 0.04 mcg/kg per minute. He is much more awake for now. His last hemodialysis was 2 days ago. Currently his white cell count is at 21.6. BUN is at 74 with a creatinine of 10.7. Platelet count is at 89. The lactic acid level was at 4.3. Troponin was at 0.08. ProBNP level was 74,100. COVID-19 testing is been negative. Chest x-ray showing cardiac regular with marked malaise congestion. Not on 4 L of oxygen by nasal cannula. No significant respiratory distress. The patient remains on a combination of Rocephin and vancomycin. He has a permacath over the right IJ. He also has a intra-vascular catheter in his left IJ extending to his left upper extremity. 05/15/2021, being seen in follow-up in the intensive care unit. He was admitted yesterday with septic shock. High suspicion for line infection as the patient grew staph aureus in the blood on 2 separate blood cultures. He remains on a combination of Rocephin and vancomycin. He was on pressors at the low-dose overnight and he is taken off the pressors earlier this morning. He is le thargic but he is arousable. Earlier this morning, his potassium level came back at 6.5 and his serum bicarb was at 14. The patient was given the potassium cocktail which included D50 insulin and x2 sodium bicarb and currently is undergoing hemodialysis. We are still utilizing the permacath in his right IJ. Note that he also has another graft/fistula in his left IJ extending to his left upper extremity. No signs of any respiratory distress. He has obvious signs of sleep apnea. He is currently on oxygen at 4 L per minute nasal cannula. His IV fluids currently running at 0.9 at 1 30 mL's an hour. This will be kept down to 40 mL an hour, maintenance. A repeat echocardiogram to be done today. His last echocardiogram post PE showed considerable degree of pulmonary hypertension. LV function was essentially within normal limits. On his blood work today, his white cell count is 23 with a hemoglobin of 10.2. Liver function tests are within normal limits. Troponin was admitted 0.05, repeat level. Pro-calcitonin his considerably elevated above 100. Urine cultures are still pending for now. Note that this patient undergoes hemodialysis at home. He has a below-knee amputation right lower extremity. 05/16/2021, clinically the patient is more awake. His lethargy is improved. He is able to communicate. He had several blood cultures that were positive for staph aureus. He remains on 2 g of Rocephin and IV vancomycin. The most recent blood culture from 05/14/2021 came back negative. The rest of the blood cultures are all positive. His urine culture also came back positive for presumptive staph. The patient's chest x-ray shows no evidence of any pneumonia. He remains on oxygen at 3 L with a pulse ox of 94% without any signs of any respiratory distress. He was also taken off pressors and his been off pressors for the past 24 hours. He received hemodialysis yesterday, normal schedule dialysis for today. He is being dialyzed through his permacath in his right IJ. Vascular surgery is on the case should there be any decision to replace the permacath. Otherwise, he still on antibiotics. I reviewed the echocardiogram that showed a preserved LV function. No vegetation based on the transthoracic echocardiogram. He remains on Eliquis by mouth 2.5 mg twice a day regarding his massive pulmonary embolism. We are inclined and preparing him by removing the Eliquis and putting him on IV heparin in preparation for any potential catheter exchange at the later stage. My suspicion is that this is a line infection rather than a urine infection. On 05/17/2021 patient seen in follow-up in the intensive care unit, he still a bit lethargic, but easily arousable to voice, he is oriented 3, denies any acute distress other than being nauseous. Denies any difficulty breathing, he is on 4 L of oxygen pulse ox of 97%, as been afebrile, his norepinephrine infusion has been off since yesterday morning. He denies any cough, no chest pain, no phlegm production, no new chest x-ray today, yesterday's chest x-ray showed mild interstitial prominence. Patient had hemodialysis yesterday with removal of 1.5 L of fluid. Lung sounds are clear, diminished at the bases, no rhonchi or wheezing. Patient's blood cultures were positive for MSSA, and urine culture came back positive for presumptive staph aureus, final culture is pending, follow blood culture was sent yesterday and preliminary Gram stain showing gram-positive cocci. Follow blood cultures will be sent today, ID service is following, patient is currently on nafcillin. Today's labs have been reviewed, his white blood cell count is improving and is down to 9.7, hemoglobin is 9.3, sodium is 136, the rest of the electrolytes are within normal limits, B1 is 43, and creatinine 6.32. Patient does void small amount of urine from time to time, and last night he made 125 ML in urine output. No diarrhea, abdomen is soft nontender. Permacath line infection is only suspected, however patient is a difficult vascular access placement, already had a failed hemodialysis access placed in the left arm, currently has a tunneled hemodialysis catheter in his right subclavian area was placed at the [facility] 6 months ago. Currently the recommendation is to continue with medical treatment for now, as the placement of another hemodialysis catheter would probably be difficult. Patient also has a recent history of pulmonary embolism requiring EKOS, currently off Eliquis and is on heparin infusion for possibility of surgical intervention. Objective - Vital Signs Vital signs: Vital Signs Temp 97.6 F 05/17/21 08:00 Pulse 80 05/17/21 09:00 Resp 11 L 05/17/21 09:00 BP 121/68 05/17/21 09:00 Pulse Ox 97 05/17/21 09:00 Intake & Output 05/16/21 05/17/21 05/17/21 18:59 06:59 18:59 Intake Total 914.462 225.538 30 Output Total 0 125 0 Balance 914.462 100.538 30 Weight 103 kg Intake: IV 170 120 30 Sodium Chloride 0.9% 1, 170 120 30 000 ml @ 40 mls/hr IV . Q24H GABY Rx#:[id number] Intake, IV Titration 244.462 105.538 Amount Heparin Sod,Pork in 0.45% 144.462 105.538 NaCl 25,000 unit In 0.45 % NaCl 1 250ml.bag @ 18 UNITS/KG/HR 19.134 mls/hr IV .Q13H4M GABY Rx#: [id number] cefTRIAXone 2 gm In 100 Sodium Chloride 0.9% 50 ml @ 100 mls/hr IVPB Q24HR GABY Rx#:[id number] Oral 500 Output: Urine 0 125 0 Other: Voiding Method Urinal Urinal # Voids 0 0 0 - Exam GENERAL EXAM: Lethargic but arousable to voice, 46-year-old male, on 4 L of oxygen pulse ox of 96% comfortable in no apparent distress. HEAD: Normocephalic/atraumatic. EYES: Normal reaction of pupils, equal size. Conjunctiva pink, sclera white. NOSE: Clear with pink turbinates. THROAT: No erythema or exudates. NECK: No masses, no JVD, no thyroid enlargement, no adenopathy. CHEST: No chest wall deformity. Symmetrical expansion. Right subclavian tunneled hemodialysis catheter in place covered with a sterile dressing. Healing scar in the left anterior upper chest area from placement of previous hemodialysis access which has subsequently failed and is not being utilized at this time LUNGS: Equal air entry with no crackles, wheeze, rhonchi or dullness. CVS: Regular rate and rhythm, normal S1 and S2, no gallops, no murmurs, no rubs ABDOMEN: Soft, nontender. No hepatosplenomegaly, normal bowel sounds, no guarding or rigidity. EXTREMITIES: No clubbing, no edema, no cyanosis, 2+ pulses and upper and lower extremities. MUSCULOSKELETAL: Muscle strength and tone normal. Right below the knee amputation SPINE: No scoliosis or deformity SKIN: No rashes CENTRAL NERVOUS SYSTEM: Alert and oriented -3. No focal deficits, tone is normal in all 4 extremities. PSYCHIATRIC: Alert and oriented -3. Appropriate affect. Intact judgment and insight. - Labs CBC & Chem 7: 05/17/21 03:50 05/17/21 03:50 Labs: Abnormal Lab Results - Last 24 Hours (Table) 05/16/21 05/16/21 05/16/21 Range/Units 10:37 11:46 14:40 WBC 11.7 H (3.8-10.6) k/uL RBC 3.32 L (4.30-5.90) m/uL Hgb 9.7 L (13.0-17.5) gm/dL Hct 31.1 L (39.0-53.0) % RDW 17.0 H (11.5-15.5) % Plt Count 69 L (150-450) k/uL Neutrophils # 10.1 H (1.3-7.7) k/uL APTT (22.0-30.0) sec Sodium (137-145) mmol/L BUN (9-20) mg/dL Creatinine (0.66-1.25) mg/dL Glucose (74-99) mg/dL POC Glucose (mg/dL) 253 H 138 H (75-99) mg/dL Calcium (8.4-10.2) mg/dL 05/16/21 05/16/21 05/16/21 Range/Units 16:40 17:21 20:05 WBC (3.8-10.6) k/uL RBC (4.30-5.90) m/uL Hgb (13.0-17.5) gm/dL Hct (39.0-53.0) % RDW (11.5-15.5) % Plt Count (150-450) k/uL Neutrophils # (1.3-7.7) k/uL APTT 129.8 H* (22.0-30.0) sec Sodium (137-145) mmol/L BUN (9-20) mg/dL Creatinine (0.66-1.25) mg/dL Glucose (74-99) mg/dL POC Glucose (mg/dL) 167 H 203 H (75-99) mg/dL Calcium (8.4-10.2) mg/dL 05/17/21 05/17/21 05/17/21 Range/Units 03:49 03:50 03:50 WBC (3.8-10.6) k/uL RBC 3.16 L (4.30-5.90) m/uL Hgb 9.3 L (13.0-17.5) gm/dL Hct 29.6 L (39.0-53.0) % RDW 16.7 H (11.5-15.5) % Plt Count 71 L (150-450) k/uL Neutrophils # (1.3-7.7) k/uL APTT 74.5 H (22.0-30.0) sec Sodium 136 L (137-145) mmol/L BUN 43 H (9-20) mg/dL Creatinine 6.32 H (0.66-1.25) mg/dL Glucose 161 H (74-99) mg/dL POC Glucose (mg/dL) (75-99) mg/dL Calcium 7.7 L (8.4-10.2) mg/dL 05/17/21 Range/Units 06:35 WBC (3.8-10.6) k/uL RBC (4.30-5.90) m/uL Hgb (13.0-17.5) gm/dL Hct (39.0-53.0) % RDW (11.5-15.5) % Plt Count (150-450) k/uL Neutrophils # (1.3-7.7) k/uL APTT (22.0-30.0) sec Sodium (137-145) mmol/L BUN (9-20) mg/dL Creatinine (0.66-1.25) mg/dL Glucose (74-99) mg/dL POC Glucose (mg/dL) 162 H (75-99) mg/dL Calcium (8.4-10.2) mg/dL Microbiology - Last 24 Hours (Table) 05/14/21 11:32 Blood Culture Gram Stain - Final Blood Blood Culture - Final Staphylococcus aureus 05/16/21 09:08 Blood Culture Gram Stain - Preliminary Blood 05/16/21 09:08 Blood Culture - Final Blood 05/14/21 18:10 Blood Culture - Preliminary Blood No Growth after 48 hours 05/14/21 12:00 Blood Culture Gram Stain - Final Blood Blood Culture - Final Staphylococcus aureus 05/14/21 18:24 Urine Culture - Preliminary Urine,Voided Presumptive Staph aureus Assessment and Plan Plan: Assessment: 1 septic shock secondary to MSSA, initially treated with Rocephin and vancomycin, currently on nafcillin. Right subclavian tunneled hemodialysis catheter is highly suspected. There is also questionable staphylococcal infection in the urine, the possibility of a line infection is more favorable. This likely that the patient may need a permacath line exchange at a later stage, this cancer surgery is following. he has a functional Hero dialysis catheter in his left upper extremity. 2 hypotension , secondary to above, recovered, patient is off norepinephrine for 24 hours on 05/17/2021 3 acute febrile illness secondary to above, fever has resolved 4 acute leukocytosis white cell count is impproved 5 acute hypoxic respiratory failure currently on 4 L by nasal cannula. No clear evidence of pneumonia 6 recent hospitalization for acute pulmonary embolism with RV strain pattern and the patient required intra-arterial thrombolytics with EKOS, maintained on long- term articulation with Eliquis 7 past surgical wound is on hemodialysis 8 peripheral vascular disease 9 right below-knee amputation 10 obesity with a BMI of 41.6 11 hyperlipidemia 12 previous history of pancreatitis 13 chronic anemia/anemia of chronic disease 14 mild lactic acidosis, secondary to above 15 diabetes mellitus maintained on insulin pump on outpatient basis, on Levemir insulin 16 acute hyperkalemia, improved 17 anion gap metabolic acidosis with a serum bicarb of 15 Plan Continue nafcillin per ID service recommendations We'll obtain follow-up blood cultures today and daily until resolution of bacteremia Echocardiogram reviewed Yesterday's chest x-ray reviewed Today's labs reviewed Vascular surgery consultation has been reviewed, and currently there is no plans on removing the permacath Continue medical treatment Continue heparin infusion for anticoagulation and recent history of pulmonary embolism possibility of surgical intervention and placement of another vascular access for hemodialysis Eliquis is on hold Continue Zofran her nausea Hemodynamically patient is stable, he is off vasopressors Hemodialysis per nephrology recommendations There is a possibility his permacath will have to be removed and the temporary hemodialysis catheter may have to be placed if there is persistent bacteremia, and subsequently removed and placed again We'll continue to closely follow in intensive care unit I performed a history & physical examination of the patient and discussed their management with my nurse practitioner, Samantha Mccormick. I reviewed the nurse practitioner's note and agree with the documented findings and plan of care. Lung sounds are positive for diminished breath sounds. The findings and the impression was discussed with the patient. I attest to the documentation by the nurse practitioner. Time with Patient: Greater than 30
[2021-05-17] MEDS ORDERED: ERGOCALCIFEROL 1,250 MCG (50,000 IU) CAPSULE PO SCH (12:00)
[2021-05-17 12:47] LABS: Glucose,Whole Blood 187 mg/dL (75-99)
--- NOTE | 2021-05-17 13:50 | P.PN ---
Subjective Progress Note Date: 05/17/21 Principal diagnosis: possible infected hemodialysis catheter, sepsis Shunt seen and examined in the ICU. States he's feeling better today. Patient underwent hemodialysis yesterday. He remains afebrile with no acute changes through the night. Objective - Vital Signs Vital signs: Vital Signs Temp 97.2 F L 05/17/21 12:00 Pulse 78 05/17/21 13:00 Resp 9 L 05/17/21 13:00 BP 119/67 05/17/21 13:00 Pulse Ox 95 05/17/21 13:00 Intake & Output 05/16/21 05/17/21 05/17/21 18:59 06:59 18:59 Intake Total 914.462 225.538 374.564 Output Total 0 125 0 Balance 914.462 100.538 374.564 Weight 103 kg Intake: IV 170 120 70 Sodium Chloride 0.9% 1, 170 120 70 000 ml @ 40 mls/hr IV . Q24H GABY Rx#:[id number] Intake, IV Titration 244.462 105.538 104.564 Amount Heparin Sod,Pork in 0.45% 144.462 105.538 104.564 NaCl 25,000 unit In 0.45 % NaCl 1 250ml.bag @ 18 UNITS/KG/HR 19.134 mls/hr IV .Q13H4M G[facility]Y Rx#: [id number] cefTRIAXone 2 gm In 100 Sodium Chloride 0.9% 50 ml @ 100 mls/hr IVPB Q24HR G[facility]Y Rx#:[id number] Oral 500 200 Output: Urine 0 125 0 Other: Voiding Method Urinal Urinal Urinal # Voids 0 0 0 - Exam General appearance: The patient is alert, oriented, in no acute distress. HET: Head is normocephalic and atraumatic. Neck: Supple without lymphadenopathy. Trachea midline. Tunneled dialysis catheter with dressing and intact, no surrounding erythema or drainage. Heart: S1 S2. Regular rate and rhythm. Lungs: Clear to auscultation. Abdomen: Soft, nontender, nondistended. Extremities: Normal skin color and turgor. Right lower extremity with BKA, wrapped. Neurological: No focal deficits. Strength and sensation are grossly intact. - Labs CBC & Chem 7: 05/17/21 03:50 05/17/21 03:50 Labs: Abnormal Lab Results - Last 24 Hours (Table) 05/16/21 05/16/21 05/16/21 Range/Units 14:40 16:40 17:21 RBC (4.30-5.90) m/uL Hgb (13.0-17.5) gm/dL Hct (39.0-53.0) % RDW (11.5-15.5) % Plt Count (150-450) k/uL APTT 129.8 H* (22.0-30.0) sec Sodium (137-145) mmol/L BUN (9-20) mg/dL Creatinine (0.66-1.25) mg/dL Glucose (74-99) mg/dL POC Glucose (mg/dL) 138 H 167 H (75-99) mg/dL Calcium (8.4-10.2) mg/dL 05/16/21 05/17/21 05/17/21 Range/Units 20:05 03:49 03:50 RBC 3.16 L (4.30-5.90) m/uL Hgb 9.3 L (13.0-17.5) gm/dL Hct 29.6 L (39.0-53.0) % RDW 16.7 H (11.5-15.5) % Plt Count 71 L (150-450) k/uL APTT 74.5 H (22.0-30.0) sec Sodium (137-145) mmol/L BUN (9-20) mg/dL Creatinine (0.66-1.25) mg/dL Glucose (74-99) mg/dL POC Glucose (mg/dL) 203 H (75-99) mg/dL Calcium (8.4-10.2) mg/dL 05/17/21 05/17/21 05/17/21 Range/Units 03:50 06:35 10:43 RBC (4.30-5.90) m/uL Hgb (13.0-17.5) gm/dL Hct (39.0-53.0) % RDW (11.5-15.5) % Plt Count (150-450) k/uL APTT 55.5 H (22.0-30.0) sec Sodium 136 L (137-145) mmol/L BUN 43 H (9-20) mg/dL Creatinine 6.32 H (0.66-1.25) mg/dL Glucose 161 H (74-99) mg/dL POC Glucose (mg/dL) 162 H (75-99) mg/dL Calcium 7.7 L (8.4-10.2) mg/dL 05/17/21 Range/Units 12:26 RBC (4.30-5.90) m/uL Hgb (13.0-17.5) gm/dL Hct (39.0-53.0) % RDW (11.5-15.5) % Plt Count (150-450) k/uL APTT (22.0-30.0) sec Sodium (137-145) mmol/L BUN (9-20) mg/dL Creatinine (0.66-1.25) mg/dL Glucose (74-99) mg/dL POC Glucose (mg/dL) 187 H (75-99) mg/dL Calcium (8.4-10.2) mg/dL Microbiology - Last 24 Hours (Table) 05/14/21 18:24 Urine Culture - Final Urine,Voided Staphylococcus aureus 05/16/21 09:08 Blood Culture Gram Stain - Preliminary Blood Blood Culture - Preliminary Staphylococcus aureus 05/14/21 11:32 Blood Culture Gram Stain - Final Blood Blood Culture - Final Staphylococcus aureus 05/16/21 09:08 Blood Culture - Final Blood 05/14/21 18:10 Blood Culture - Preliminary Blood No Growth after 48 hours 05/14/21 12:00 Blood Culture Gram Stain - Final Blood Blood Culture - Final Staphylococcus aureus Assessment and Plan Assessment: 1. Bacteremia, preliminary blood culture staph aureus 2. UTI with staph aureus 3. Pneumonia 4. History diabetes mellitus 5. History of peripheral arterial disease status post right [id number] amputation 6. End-stage renal disease on hemodialysis 7. History of recent massive pulmonary embolism treated with EKOS and antico agulation. Plan: 1. Continue IV antibiotics as ordered 2. Continue hemodialysis as ordered per nephrology 3. Await repeat blood culture. 4. Vascular surgery will be on standby if tunneled dialysis catheter needs to be removed and replaced, however do not recommend unless absolutely necessary as patient has poor access and has had multiple grafts that have failed. We'll await repeat blood cultures. Thank you for this consultation and allowing us take part in the plan of care of your patient during his hospital stay The impression and plan of care has been dictated as directed. Dr. Pereira I performed a history and examination of this patient, discussed the same with the dictator. I agree with the dictator's note ,documented as a scribe. Any additional findings or plans will be noted.
--- NOTE | 2021-05-17 14:50 | P.PN ---
Subjective Progress Note Date: 05/17/21 (delayed charting) Principal diagnosis: confusion Patient is a 46-year-old male with a history of diabetes mellitus on insulin pump, end-stage renal disease on hemodialysis, peripheral vascular disease, and recent diagnosis of massive pulmonary embolism requiring EKOS system who presented to the emergency department secondary to altered mentation, fever, and lethargy. On arrival to the ER he had a temperature of 104 and a pulse of 105. Laboratory analysis shows white blood cell count 21.6, hemoglobin 10.5, sodium 134, BUN 74, creatinine 10.7, troponin 0.089, BNP 74,100, cold was negative. Chest x-ray showed patchy bilateral areas of infiltrate with density in the right upper lobe concerning for pneumonia with increased vascular congestion. The ER he was given a dose of Rocephin and vancomycin. He was persistently hypotensive despite 1 L of IV fluid and therefore was started on levo. He was admitted to the ICU for further monitoring. He was found to have stap bacteremia likely due to infected catheter. Nephrology, critical care, vascular surgery, a nd ID were consulted. By the morning after admission patient had an elevated creatinine to 6.5 and was started on dialysis. His blood pressure had improved Levophed was off by 6:30am on 05/15. Blood cultures were positive for MSSA urine cultures was as well. Has HD catheter associated line infection due to difficult access and it being MSSA we'll attempt to treat without exchanging catheter. Patient seen and examined at bedside. He complains of being tired, SOB is getting better, no chest pain, no nausea, no vomiting, no diarrhea. General: ill appearing, mild distress, appears at stated age Derm: warm, dry Head: atraumatic, normocephalic, symmetric Eyes: EOMI, no lid lag, anicteric sclera Mouth: no lip lesion, mucus membranes moist Cardiovascular: S1S2 tachy, no murmur, positive posterior tibial pulse left, Lungs: Course bs bilateral, no rhonchi, no rales , no accessory muscle use Abdominal: soft, nontender to palpation, no guarding, no appreciable organomegaly Ext: no gross muscle atrophy, trace edema, no contractures Neuro: CN II-XI grossly intact, no focal neuro deficits Psych: lethargic oriented, appropriate affect Septic shock, due to MSSA bacteremia HD cath infection, toxic metabolic encephalopathy secondary to Septic shock Staph asymptomatic bacturia (patient without symptoms and concerns for HD cath related infection) - Covid testing was negative - off levophed - Pulmonary recs appreciated - ID recs: nafcillin - vascular recs -Maintain heparin drip and case cath does need to be changed, if continues to improve and blood cultures become negative will restart Eliquis. - on TTE no vegetation and preserved EF 55-60% Acute hypoxic respiratory failure - pulm recs - wean O2 as able Recent Massive Pulmonary embolism - heparin gtt Thrombocytopenia - likely reactive - follow CBC ESRD on HD -nephrology recs Diabetes mellitus type 2 requiring insulin pump -Secondary to altered mentation will stop insulin pump -Sliding-scale insulin -Levemir 12 units am and PM -Hemoglobin A1c from 04/08/21 10. Lactic acidosis secondary to above -IV fluids -Repeat lactic acid Troponin elevation, likely secondary to end-stage renal disease -flat ACS ruled out Hyperkalemia, resolved Chronic: Obesity with BMI 41.6 Dyslipidemia Peripheral arterial disease status post right BKA Dyslipidemia Anemia of chronic disease, likely chronic renal disease DVT prophylaxis: heparin gtt Objective - Vital Signs Vital signs: Vital Signs Temp 97.2 F L 05/17/21 12:00 Pulse 78 05/17/21 13:00 Resp 9 L 05/17/21 13:00 BP 119/67 05/17/21 13:00 Pulse Ox 95 05/17/21 13:00 Intake & Output 05/16/21 05/17/21 05/17/21 18:59 06:59 18:59 Intake Total 914.462 225.538 374.564 Output Total 0 125 0 Balance 914.462 100.538 374.564 Weight 103 kg Intake: IV 170 120 70 Sodium Chloride 0.9% 1, 170 120 70 000 ml @ 40 mls/hr IV . Q24H [facility] Rx#:[id number] Intake, IV Titration 244.462 105.538 104.564 Amount Heparin Sod,Pork in 0.45% 144.462 105.538 104.564 NaCl 25,000 unit In 0.45 % NaCl 1 250ml.bag @ 18 UNITS/KG/HR 19.134 mls/hr IV .Q13H4M [facility] Rx#: [id number] cefTRIAXone 2 gm In 100 Sodium Chloride 0.9% 50 ml @ 100 mls/hr IVPB Q24HR [facility] Rx#:[id number] Oral 500 200 Output: Urine 0 125 0 Other: Voiding Method Urinal Urinal Urinal # Voids 0 0 0 - Labs CBC & Chem 7: 05/17/21 03:50 05/17/21 03:50 Labs: Abnormal Lab Results - Last 24 Hours (Table) 05/16/21 05/16/21 05/16/21 Range/Units 16:40 17:21 20:05 RBC (4.30-5.90) m/uL Hgb (13.0-17.5) gm/dL Hct (39.0-53.0) % RDW (11.5-15.5) % Plt Count (150-450) k/uL APTT 129.8 H* (22.0-30.0) sec Sodium (137-145) mmol/L BUN (9-20) mg/dL Creatinine (0.66-1.25) mg/dL Glucose (74-99) mg/dL POC Glucose (mg/dL) 167 H 203 H (75-99) mg/dL Calcium (8.4-10.2) mg/dL 05/17/21 05/17/21 05/17/21 Range/Units 03:49 03:50 03:50 RBC 3.16 L (4.30-5.90) m/uL Hgb 9.3 L (13.0-17.5) gm/dL Hct 29.6 L (39.0-53.0) % RDW 16.7 H (11.5-15.5) % Plt Count 71 L (150-450) k/uL APTT 74.5 H (22.0-30.0) sec Sodium 136 L (137-145) mmol/L BUN 43 H (9-20) mg/dL Creatinine 6.32 H (0.66-1.25) mg/dL Glucose 161 H (74-99) mg/dL POC Glucose (mg/dL) (75-99) mg/dL Calcium 7.7 L (8.4-10.2) mg/dL 05/17/21 05/17/21 05/17/21 Range/Units 06:35 10:43 12:26 RBC (4.30-5.90) m/uL Hgb (13.0-17.5) gm/dL Hct (39.0-53.0) % RDW (11.5-15.5) % Plt Count (150-450) k/uL APTT 55.5 H (22.0-30.0) sec Sodium (137-145) mmol/L BUN (9-20) mg/dL Creatinine (0.66-1.25) mg/dL Glucose (74-99) mg/dL POC Glucose (mg/dL) 162 H 187 H (75-99) mg/dL Calcium (8.4-10.2) mg/dL Microbiology - Last 24 Hours (Table) 05/14/21 18:24 Urine Culture - Final Urine,Voided Staphylococcus aureus 05/16/21 09:08 Blood Culture Gram Stain - Preliminary Blood Blood Culture - Preliminary Staphylococcus aureus 05/14/21 11:32 Blood Culture Gram Stain - Final Blood Blood Culture - Final Staphylococcus aureus 05/16/21 09:08 Blood Culture - Final Blood 05/14/21 18:10 Blood Culture - Preliminary Blood No Growth after 48 hours 05/14/21 12:00 Blood Culture Gram Stain - Final Blood Blood Culture - Final Staphylococcus aureus
--- NOTE | 2021-05-17 16:36 | US ---
EXAMINATION TYPE: US venous doppler duplex UE BI DATE OF EXAM: 05/17/2021 COMPARISON: NONE CLINICAL HISTORY: assess for IJV access for tunneled cath. Per DANIAL Lees, IJV patency is needed to be assessed bilaterally; SIDE PERFORMED: Bilateral limited for IJV patency Right IJV: Patent throughout it's course and PW Doppler and Color Flow confirm this patency. Patient' s echogenic tunnel catheter is seen from skin line to IJV. Left IJV: Left IJV is thrombosed between proximal and distal lumen. Distal Left IJV proximally and d istally is patent. Left Tunnel Catheter is noted from skin line to thrombosed IJV. IMPRESSION: Partial thrombosis of the left mid internal jugular vein. Bilateral jugular venous catheters in plac e. Patient's RN, SHENA, was informed of left IJV partial thrombosis per US technologist at exam's end.
--- NOTE | 2021-05-17 17:02 | PN ---
PROGRESS NOTE Patient is seen for followup for end-stage renal disease. He was admitted to the hospital with fever, hypotension, and generalized weakness. The patient's blood cultures have grown Staph aureus. He has been maintained on antibiotics. However, it appears that repeat cultures are also growing Staph on 05/16/2021. Blood pressure remains on the lower side. Patient is maintained on midodrine. On examination, earlier this morning blood pressure 106/62, heart rate of 80 per minute. He is afebrile. Examination of the heart S1, S2. Examination of the lungs, bilateral breath sounds are heard. Abdomen is soft, nontender. Examination of lower extremities shows no significant edema. [facility] [employer] exam grossly intact. LAB: Show hemoglobin 9.3, sodium 136, potassium 3.6, BUN 43, creatinine 6.32. ASSESSMENT: 1. End-stage renal disease, on hemodialysis on home hemodialysis status post 2 consecutive treatments. The patient will be dialyzed again tomorrow. 2. Staph aureus bacteremia initially it appeared that the patient's infection was getting cleared however, his repeat blood cultures from May 16 are still positive for Staph aureus. Therefore, we will proceed with removal of the PermCath. The patient will be dialyzed tomorrow and we can remove the PermCath after his dialysis. He is currently hemodynamically stable. Continue with antibiotics for now. 3. Anemia of chronic disease. 4. Chronic kidney disease, mineral bone disorder. 5. Sepsis with Staph aureus bacteremia. 6. Mild volume overload on initial admission. PLAN: Hemodialysis in a.m. and we will plan to remove the PermCath tomorrow after dialysis as patient's blood cultures remain positive. We will discuss with vascular surgery. MMODL / IJN: [id number] /
--- NOTE | 2021-05-17 17:48 | PN ---
PROGRESS NOTE DATE OF SERVICE: 05/17/2021 REASON FOR FOLLOWUP: MSSA bacteremia concerning for the PermCath infection. INTERVAL HISTORY: The patient is afebrile. The patient is mentioning he is feeling better. Breathing comfortably. The patient denies having any chest pain or cough. No nausea, no vomiting. No abdominal pain or diarrhea. PHYSICAL EXAMINATION: Blood pressure 107/55, pulse of 83, temperature 98.1 he is 94% on 2 L nasal cannula. General description is a middle-aged male lying in bed in no distress. Respiratory system: Unlabored breathing, decreased breath sounds at bases, no wheeze. Heart S1, S2. Regular rate and rhythm. Abdomen: Soft, no tenderness. LABS: Hemoglobin 9.7, BUN of 43, creatinine is 6.32. Blood cultures from yesterday still positive. DIAGNOSTIC IMPRESSION AND PLAN: Patient MSSA bacteremia concerning for PermCath infection. Will benefit from removal of the PermCatheter. ( ) infection but if he did have persistent bacteremia, the patient may need ANNABELLE to rule out endocarditis. Patient is covered with nafcillin with the daily monitoring of his blood cultures to document clearance of his bacteremia. MMODL / IJN: [id number] /
[2021-05-17 21:10] LABS: Glucose,Whole Blood 290 mg/dL (75-99)
[2021-05-17] MEDS: ATORVASTATIN 40 MG TAB PO SCH (21:22)
[2021-05-18] MEDS: METOCLOPRAMIDE 5 MG/ML 2 ML VIAL IVP SCH ×3 (00:48→11:54)
[2021-05-18] MEDS: NAFCILLIN 2 GM in DEXTROSE 5% IN WATER 100 ML IVPB SCH ×10 (00:48→16:44)
[2021-05-18 01:31] LABS: Glucose,Whole Blood 285 mg/dL (75-99)
[2021-05-18] MEDS: oxyCODONE-APAP 10-325MG 1 EACH TAB PO SCH ×3 (04:15→16:34)
[2021-05-18 05:23] LABS: Anisocytosis Slight; Basophils # (A) 0.1 k/uL (0-0.2); Basophils % (A) 1 %; Eosinophils # (A) 0.2 k/uL (0-0.7); Eosinophils % (A) 2 %; HCT 31.5 % (39.0-53.0); HGB 10.1 gm/dL (13.0-17.5); Hypochromasia Slight; Lymphocytes # (A) 1.2 k/uL (1.0-4.8); Lymphocytes % (A) 11 %; MCH 29.8 pg (25.0-35.0); MCV 93.2 fL (80.0-100.0); Mean Platelet Volume 13.7; Monocytes # (A) 0.4 k/uL (0-1.0); Monocytes % (A) 4 %; Neutrophils # (A) 8.4 k/uL (1.3-7.7); Neutrophils % (A) 79 %; RBC 3.38 m/uL (4.30-5.90); RDW 17.1 % (11.5-15.5); WBC 10.5 k/uL (3.8-10.6)
[2021-05-18 05:53] LABS: Platelet Count 94 k/uL (150-450)
[2021-05-18 06:00] LABS: Calcium 7.6 mg/dL (8.4-10.2)
[2021-05-18 06:32] LABS: Glucose,Whole Blood 212 mg/dL (75-99)
[2021-05-18] MEDS: PANTOPRAZOLE 40 MG TABLET PO SCH (06:43)
[2021-05-18] MEDS: INSULIN ASPART (NovoLOG) 100 UNIT/ML VIAL SQ SCH ×3 (06:43→18:20)
[2021-05-18] MEDS: INSULIN DETEMIR (LEVEMIR) 100 UNIT/ML SYR SQ SCH (06:43)
[2021-05-18] MEDS: NOREPINEPHRINE 4 MG in SODIUM CHLORIDE 0.9% 250 ML IV SCH ×2 (08:40→11:54)
[2021-05-18] MEDS: HEPARIN SOD,PORK IN 0.45% NACL 25,000 UNIT in 0.45% NACL 1 250ML.BAG IV SCH ×2 (08:42→16:43)
[2021-05-18] MEDS: CALCIUM ACETATE 667 MG TAB PO SCH (08:47)
[2021-05-18] MEDS: MIDODRINE 5 MG TAB PO SCH ×2 (08:48→16:34)
[2021-05-18] MEDS: TIMOLOL 0.5% OPHTH DROPS 5 ML BTL RIGHT EYE SCH (08:48)
[2021-05-18] MEDS: levETIRAcetam 500 MG TAB PO SCH (08:48)
[2021-05-18] MEDS: PREGABALIN 100 MG CAP PO SCH ×2 (08:48→16:35)
[2021-05-18] MEDS: FOLIC ACID-VIT B COMPLEX-VIT C 1 CAP PO SCH (08:48)
--- NOTE | 2021-05-18 10:37 | P.PN ---
Subjective Progress Note Date: 05/18/21 46-year-old male patient with end-stage renal disease on hemodialysis, morbidly obese with a BMI of 41, peripheral vascular disease with previous dictation right in addition to a recent massive pulmonary embolism requiring intra- arterial thrombolytic using the EKOS SYSTEM maintained on long-term anticoag ulation with Eliquis. The patient was brought into the hospital with altered mentation, fever and lethargy. His been going on for the past 12-24 hours as noted by the family. No worsening shortness of breath. The patient was becoming progressively more lethargic. He was also running higher blood pressures and higher blood sugars at home. He arrived to the ED and the patient had a T-max of 104, subsequently dropped his blood pressure down to 75/28, given half a liter of bolus and following that he was started on norepinephrine at 0.04 mcg/kg per minute. He is much more awake for now. His last hemodialysis was 2 days ago. Currently his white cell count is at 21.6. BUN is at 74 with a creatinine of 10.7. Platelet count is at 89. The lactic acid level was at 4.3. Troponin was at 0.08. ProBNP level was 74,100. COVID-19 testing is been negative. Chest x-ray showing cardiac regular with marked malaise congestion. Not on 4 L of oxygen by nasal cannula. No significant respiratory distress. The patient remains on a combination of Rocephin and vancomycin. He has a permacath over the right IJ. He also has a intra-vascular catheter in his left IJ extending to his left upper extremity. 05/15/2021, being seen in follow-up in the intensive care unit. He was admitted yesterday with septic shock. High suspicion for line infection as the patient grew staph aureus in the blood on 2 separate blood cultures. He remains on a combination of Rocephin and vancomycin. He was on pressors at the low-dose overnight and he is taken off the pressors earlier this morning. He is lethargic but he is arousable. Earlier this morning, his potassium level came back at 6.5 and his serum bicarb was at 14. The patient was given the potassium cocktail which included D50 insulin and x2 sodium bicarb and currently is undergoing hemodialysis. We are still utilizing the permacath in his right IJ. Note that he also has another graft/fistula in his left IJ extending to his left upper extremity. No signs of any respiratory distress. He has obvious signs of sleep apnea. He is currently on oxygen at 4 L per minute nasal cannula. His IV fluids currently running at 0.9 at 1 30 mL's an hour. This will be kept down to 40 mL an hour, maintenance. A repeat echocardiogram to be done today. His last echocardiogram post PE showed considerable degree of pulmonary hypertension. LV function was essentially within normal limits. On his blood work today, his white cell count is 23 with a hemoglobin of 10.2. Liver function tests are within normal limits. Troponin was admitted 0.05, repeat level. Pro-calcitonin his considerably elevated above 100. Urine cultures are still pending for now. Note that this patient undergoes hemodialysis at home. He has a below-knee amputation right lower extremity. 05/16/2021, clinically the patient is more awake. His lethargy is improved. He is able to communicate. He had several blood cultures that were positive for staph aureus. He remains on 2 g of Rocephin and IV vancomycin. The most recent blood culture from 05/14/2021 came back negative. The rest of the blood cultures are all positive. His urine culture also came back positive for presumptive staph. The patient's chest x-ray shows no evidence of any pneumonia. He remains on oxygen at 3 L with a pulse ox of 94% without any signs of any respiratory distress. He was also taken off pressors and his been off pressors for the past 24 hours. He received hemodialysis yesterday, normal schedule dialysis for today. He is being dialyzed through his permacath in his right IJ. Vascular surgery is on the case should there be any decision to replace the permacath. Otherwise, he still on antibiotics. I reviewed the echocardiogram that showed a preserved LV function. No vegetation based on the transthoracic echocardiogram. He remains on Eliquis by mouth 2.5 mg twice a day regarding his massive pulmonary embolism. We are inclined and preparing him by removing the Eliquis and putting him on IV heparin in preparation for any potential catheter exchange at the later stage. My suspicion is that this is a line infection rather than a urine infection. On 05/17/2021 patient seen in follow-up in the intensive care unit, he still a bit lethargic, but easily arousable to voice, he is oriented 3, denies any acute distress other than being nauseous. Denies any difficulty breathing, he is on 4 L of oxygen pulse ox of 97%, as been afebrile, his norepinephrine infusion has been off since yesterday morning. He denies any cough, no chest pain, no phlegm production, no new chest x-ray today, yesterday's chest x-ray showed mild interstitial prominence. Patient had hemodialysis yesterday with removal of 1.5 L of fluid. Lung sounds are clear, diminished at the bases, no rhonchi or wheezing. Patient's blood cultures were positive for MSSA, and urine culture came back positive for presumptive staph aureus, final culture is pending, follow blood culture was sent yesterday and preliminary Gram stain showing gram-positive cocci. Follow blood cultures will be sent today, ID service is following, patient is currently on nafcillin. Today's labs have been reviewed, his white blood cell count is improving and is down to 9.7, hemoglobin is 9.3, sodium is 136, the rest of the electrolytes are within normal limits, B1 is 43, and creatinine 6.32. Patient does void small amount of urine from time to time, and last night he made 125 ML in urine output. No diarrhea, abdomen is soft nontender. Permacath line infection is only suspected, however patient is a difficult vascular access placement, already had a failed hemodialysis access placed in the left arm, currently has a tunneled hemodialysis catheter in his right subclavian area was placed at the [facility] 6 months ago. Currently the recommendation is to continue with medical treatment for now, as the placement of another hemodialysis catheter would probably be difficult. Patient also has a recent history of pulmonary embolism requiring EKOS, currently off Eliquis and is on heparin infusion for possibility of surgical intervention. 05/18/2021, I'm seeing the patient for a follow-up. Is still lethargic but arousable. Repeat blood cultures have been sent. For now, we are still trying to figure doubt whether the permacath can be removed IN place. This will largely depend on his ability to get another hemodialysis catheter a different location knowing that his other Than the left IJ i.e. Hero cath unction. As such, repeat blood cultures of been sent from today and the results are still pending. Meanwhile, he remains on the same antibiotic coverage. He is on naf cillin and the Rocephin and vancomycin has been discontinued. His last bout of hemodialysis was 2 days ago where a total of 1.5 L of fluid was removed and the patient is going to undergo another session of hemodialysis today. No respiratory difficulties. No cough or sputum production. He remains on IV heparin. No signs of any bleeding. White cell count today is at 10.5 with a hemoglobin of 10.1. BUN is a 57 with a creatinine of 8. Sodium is at 135. He is on Levemir insulin 10 units at bedtime along with a sliding scale coverage. Rest of the medications remain essentially unchanged. Nephrology is on the case. Vascular surgery is also on the case. ID is on the case. Objective - Vital Signs Vital signs: Vital Signs Temp 97.5 F L 05/18/21 08:00 Pulse 75 05/18/21 09:00 Resp 8 L 05/18/21 09:00 BP 95/70 05/18/21 09:00 Pulse Ox 96 05/18/21 09:00 Intake & Output 05/17/21 05/18/21 05/18/21 18:59 06:59 18:59 Intake Total 724.564 830 160 Output Total 40 Balance 684.564 830 160 Weight 105.4 kg Intake: IV 420 520 160 Nafcillin 2 gm In 300 300 100 Dextrose 5% in Water 100 ml @ 50 mls/hr IVPB Q4HR GABY Rx#:[id number] Sodium Chloride 0.9% 1, 120 220 60 000 ml @ 40 mls/hr IV . Q24H GABY Rx#:[id number] Intake, IV Titration 104.564 250 Amount Heparin Sod,Pork in 0.45% 104.564 250 NaCl 25,000 unit In 0.45 % NaCl 1 250ml.bag @ 18 UNITS/KG/HR 19.134 mls/hr IV .Q13H4M GABY Rx#: [id number] Oral 200 60 Output: Urine 40 Other: Voiding Method Urinal Urinal # Voids 0 - Exam Morbidly obese, BMI of 41.6, comfortable, not in acute respiratory distress, currently on 4 L by nasal cannula Head exam was generally normal. There was no scleral icterus or corneal arcus. Mucous membranes were moist. Neck was supple and without jugular venous distension, thyromegaly, or carotid bruits. Carotids were easily palpable bilaterally. There was no adenopathy. Mallampati class IV with significant crowding of the posterior pharynx Lungs sounds are diminished specially in the lung bases along with some few crac kles Heart sounds are tachycardic, positive sinus and there is no significant murmurs appreciated. Overall heart sounds are distant. Abdominal exam revealed normal bowel sounds. The abdomen was soft, non-tender, and without masses, organomegaly, or appreciable enlargement of the abdominal aorta. Extremities reveal a below-knee amputation on the right. Diminished pulses in all 4 extremities. No cyanosis or clubbing. Examination of the skin revealed no evidence of significant rashes, suspicious appearing nevi or other concerning lesions. Neurologically lethargic yet arousable. Moving all 4 extremity is without any limitation. - Labs CBC & Chem 7: 05/18/21 04:13 05/18/21 04:13 Labs: Abnormal Lab Results - Last 24 Hours (Table) 05/17/21 05/17/21 05/17/21 Range/Units 10:43 12:26 16:47 RBC (4.30-5.90) m/uL Hgb (13.0-17.5) gm/dL Hct (39.0-53.0) % RDW (11.5-15.5) % Plt Count (150-450) k/uL Neutrophils # (1.3-7.7) k/uL APTT 55.5 H (22.0-30.0) sec Sodium (137-145) mmol/L Carbon Dioxide (22-30) mmol/L BUN (9-20) mg/dL Creatinine (0.66-1.25) mg/dL Glucose (74-99) mg/dL POC Glucose (mg/dL) 187 H 285 H (75-99) mg/dL Calcium (8.4-10.2) mg/dL 05/17/21 05/18/21 05/18/21 Range/Units 21:06 04:13 04:13 RBC 3.38 L (4.30-5.90) m/uL Hgb 10.1 L (13.0-17.5) gm/dL Hct 31.5 L (39.0-53.0) % RDW 17.1 H (11.5-15.5) % Plt Count 94 L (150-450) k/uL Neutrophils # 8.4 H (1.3-7.7) k/uL APTT 56.5 H (22.0-30.0) sec Sodium (137-145) mmol/L Carbon Dioxide (22-30) mmol/L BUN (9-20) mg/dL Creatinine (0.66-1.25) mg/dL Glucose (74-99) mg/dL POC Glucose (mg/dL) 290 H (75-99) mg/dL Calcium (8.4-10.2) mg/dL 05/18/21 05/18/21 Range/Units 04:13 06:30 RBC (4.30-5.90) m/uL Hgb (13.0-17.5) gm/dL Hct (39.0-53.0) % RDW (11.5-15.5) % Plt Count (150-450) k/uL Neutrophils # (1.3-7.7) k/uL APTT (22.0-30.0) sec Sodium 135 L (137-145) mmol/L Carbon Dioxide 21 L (22-30) mmol/L BUN 57 H (9-20) mg/dL Creatinine 8.07 H* (0.66-1.25) mg/dL Glucose 216 H (74-99) mg/dL POC Glucose (mg/dL) 212 H (75-99) mg/dL Calcium 7.6 L (8.4-10.2) mg/dL Microbiology - Last 24 Hours (Table) 05/17/21 03:49 Blood Culture - Preliminary Blood No Growth after 24 hours 05/14/21 18:10 Blood Culture - Preliminary Blood No Growth after 72 hours 05/14/21 18:24 Urine Culture - Final Urine,Voided Staphylococcus aureus 05/16/21 09:08 Blood Culture Gram Stain - Preliminary Blood Blood Culture - Preliminary Staphylococcus aureus 05/14/21 11:32 Blood Culture Gram Stain - Final Blood Blood Culture - Final Staphylococcus aureus Assessment and Plan Plan: 1 septic shock secondary to staph aureus, the patient is on nafcillin. The patient is having repeated blood cultures sent to assess for any persistent bacteremia. This is most likely a line infection with secondary seeding of the urinary tract. The issue that the patient has no other reliable source of vascular access for dialysis. Vascular surgery is quite has been to do any immediate replacement. We'll have further discussion with vascular surgery and nephrology and infectious disease regarding the fate of this catheter. Note that the patient has a permacath on the right IJ and a hero catheter on the left IJ. Both are in the vascular devices and high likelihood of the catheters are infected. The skin overlying the hero catheter is dry clean and intact. The exit site of the permacath is also dry clean and intact. The transthoracic echocardiogram shows no evidence of any vegetation. He is lethargic and encephalopathic on and off. He is however responsive. He is hemodynamically stable. Hypertension is recovered. 2 hypotension , secondary to above, recovered 3 acute febrile illness secondary to above, afebrile 4 acute leukocytosis white cell count is approved 5 acute hypoxic respiratory failure currently on 4 L by nasal cannula. No clear evidence of pneumonia 6 recent hospitalization for acute pulmonary embolism with RV strain pattern and the patient required intra-arterial thrombolytics with EKOS, maintained on long- term anticoagulation with Eliquis currently on IV heparin 7 past surgical wound is on hemodialysis 8 peripheral vascular disease 9 right below-knee amputation 10 obesity with a BMI of 41.6 11 hyperlipidemia 12 previous history of pancreatitis 13 chronic anemia/anemia of chronic disease 14 mild lactic acidosis, secondary to above 15 diabetes mellitus maintained on insulin pump on outpatient basis, on Levemir insulin 16 acute hyperkalemia, improved 17 anion gap metabolic acidosis with a serum bicarb of 15 Plan Clinically the ongoing sepsis induced encephalopathy and lethargy which is mild degree and the patient is quite arousable and following simple commands. Nafcillin for MSSA bacteremia and repeated blood cultures of been sent Echocardiogram was noted Heparin iV Waiting final recommendations from the vascular surgery team and infectious team regarding the fate of this permacath. This largely will depend on the ability for this patient to clear his bacteremia. There is a high concern that the vascular cath is infected. Nevertheless, the permacath as the pressures catheter because of lack of any other IV access for dialysis. It seems that there is intention to save the catheter right treating with antibiotics for now. I'm not sure this will be successful treatment. We'll continue to follow. We'll have further discussion with the rest of the team. Hemodynamically stable. Still clinically encephalopathic due to his underlying sepsis. Keep patient in intensive care unit and will continue to follow make further recommendations based on his progress.
[2021-05-18 11:04] LABS: Glucose,Whole Blood 196 mg/dL (75-99)
--- NOTE | 2021-05-18 11:35 | P.PN ---
Subjective Progress Note Date: 05/18/21 Principal diagnosis: possible infected hemodialysis catheter, sepsis Patient is seen and examined in ICU. He is more drowsy today but arousable. He will undergo hemodialysis today and his right IJ tunneled catheter has been working well. He has been afebrile. No leukocytosis today. Repeat blood cultures are pending. Previous blood culture shows MSSA. He is currently on Nafcillin IV antibiotic, he is being followed by nephrology and infectious disease. Being managed by ICU team. Yesterday he underwent ultrasound bilateral upper extremities with findings of partial thrombosis of the left mid internal jugular vein. Bilateral calculi or venous catheters in place. Right internal jugular vein patent throughout its course. Objective - Vital Signs Vital signs: Vital Signs Temp 98.2 F 05/18/21 04:00 Pulse 76 05/18/21 07:00 Resp 8 L 05/18/21 07:00 BP 95/60 05/18/21 07:00 Pulse Ox 96 05/18/21 07:00 Intake & Output 05/17/21 05/18/21 05/18/21 18:59 06:59 18:59 Intake Total 724.564 580 20 Output Total 40 Balance 684.564 580 20 Weight 105.4 kg Intake: IV 420 520 20 Nafcillin 2 gm In 300 300 Dextrose 5% in Water 100 ml @ 50 mls/hr IVPB Q4HR GABY Rx#:[id number] Sodium Chloride 0.9% 1, 120 220 20 000 ml @ 40 mls/hr IV . Q24H GABY Rx#:[id number] Intake, IV Titration 104.564 Amount Heparin Sod,Pork in 0.45% 104.564 NaCl 25,000 unit In 0.45 % NaCl 1 250ml.bag @ 18 UNITS/KG/HR 19.134 mls/hr IV .Q13H4M GABY Rx#: [id number] Oral 200 60 Output: Urine 40 Other: Voiding Method Urinal Urinal # Voids 0 - Exam General appearance: The patient is drowsy but arousable, appears in no acute distress. HET: Head is normocephalic and atraumatic. Neck: Supple without lymphadenopathy. Trachea midline. Tunneled dialysis catheter with dressing and intact, no surrounding erythema or drainage. Extremities: Normal skin color and turgor. Right lower extremity with BKA, wrapped. Neurological: No focal deficits. Alert and orientated x3. - Labs CBC & Chem 7: 05/18/21 04:13 05/18/21 04:13 Labs: Abnormal Lab Results - Last 24 Hours (Table) 05/17/21 05/17/21 05/17/21 Range/Units 10:43 12:26 16:47 RBC (4.30-5.90) m/uL Hgb (13.0-17.5) gm/dL Hct (39.0-53.0) % RDW (11.5-15.5) % Plt Count (150-450) k/uL Neutrophils # (1.3-7.7) k/uL APTT 55.5 H (22.0-30.0) sec Sodium (137-145) mmol/L Carbon Dioxide (22-30) mmol/L BUN (9-20) mg/dL Creatinine (0.66-1.25) mg/dL Glucose (74-99) mg/dL POC Glucose (mg/dL) 187 H 285 H (75-99) mg/dL Calcium (8.4-10.2) mg/dL 05/17/21 05/18/21 05/18/21 Range/Units 21:06 04:13 04:13 RBC 3.38 L (4.30-5.90) m/uL Hgb 10.1 L (13.0-17.5) gm/dL Hct 31.5 L (39.0-53.0) % RDW 17.1 H (11.5-15.5) % Plt Count 94 L (150-450) k/uL Neutrophils # 8.4 H (1.3-7.7) k/uL APTT 56.5 H (22.0-30.0) sec Sodium (137-145) mmol/L Carbon Dioxide (22-30) mmol/L BUN (9-20) mg/dL Creatinine (0.66-1.25) mg/dL Glucose (74-99) mg/dL POC Glucose (mg/dL) 290 H (75-99) mg/dL Calcium (8.4-10.2) mg/dL 05/18/21 05/18/21 Range/Units 04:13 06:30 RBC (4.30-5.90) m/uL Hgb (13.0-17.5) gm/dL Hct (39.0-53.0) % RDW (11.5-15.5) % Plt Count (150-450) k/uL Neutrophils # (1.3-7.7) k/uL APTT (22.0-30.0) sec Sodium 135 L (137-145) mmol/L Carbon Dioxide 21 L (22-30) mmol/L BUN 57 H (9-20) mg/dL Creatinine 8.07 H* (0.66-1.25) mg/dL Glucose 216 H (74-99) mg/dL POC Glucose (mg/dL) 212 H (75-99) mg/dL Calcium 7.6 L (8.4-10.2) mg/dL Microbiology - Last 24 Hours (Table) 05/17/21 03:49 Blood Culture - Preliminary Blood No Growth after 24 hours 05/14/21 18:10 Blood Culture - Preliminary Blood No Growth after 72 hours 05/14/21 18:24 Urine Culture - Final Urine,Voided Staphylococcus aureus 05/16/21 09:08 Blood Culture Gram Stain - Preliminary Blood Blood Culture - Preliminary Staphylococcus aureus 05/14/21 11:32 Blood Culture Gram Stain - Final Blood Blood Culture - Final Staphylococcus aureus Assessment and Plan Assessment: 1. Bacteremia, preliminary blood culture staph aureus 2. UTI with staph aureus 3. Pneumonia 4. History diabetes mellitus 5. History of peripheral arterial disease status post right [id number] amputation 6. End-stage renal disease on hemodialysis 7. History of recent massive pulmonary embolism treated with EKOS and anticoagulation. Plan: 1. Continue IV antibiotics as ordered 2. Continue hemodialysis as ordered per nephrology 3. Await repeat blood culture. 4. Vascular surgery will be on standby if tunneled dialysis catheter needs to be removed and replaced, however do not recommend unless absolutely necessary as patient has poor access and has had multiple grafts that have failed. 5. Bilateral upper extremity venous ultrasound ordered and reviewed Thank you for this consultation and allowing us take part in the plan of care of your patient during his hospital stay The impression and plan of care has been dictated as directed. Dr. Pereira I performed a history and examination of this patient, discussed the same with the dictator. I agree with the dictator's note ,documented as a scribe. Any additional findings or plans will be noted.
--- NOTE | 2021-05-18 12:33 | PN ---
PROGRESS NOTE The patient is seen for followup for end-stage renal disease. He remains lethargic but awake. He has not been eating much. Repeat blood cultures from May 16 are still positive. Blood cultures repeated again today. So far from May 17 are negative for 24 hours. Since patient has had poor circulation and has very few options for access for dialysis, we will try to hold off on removing the PermCath unless absolutely indicated with persistent positive blood cultures or hemodynamically and instability. PHYSICAL EXAMINATION: On examination today, blood pressure 114/80, heart rate 76 per minute. He is afebrile. Examination of the heart S1, S2. Examination of the lungs, bilateral breath sounds are heard. Abdomen is soft, nontender. Examination of lower extremities shows no significant edema. Right BKA. [employer] exam grossly intact. LABS: Show sodium 135, potassium 4.0, serum creatinine 8.0, hemoglobin 10.1 g/dL. ASSESSMENT: 1. End-stage renal disease, on hemodialysis, maintained on home hemodialysis, currently being dialyzed based on volume status and based on plans for possible removal of PermCath. The patient will be dialyzed today and we will plan on possible dialysis again tomorrow if his PermCath needs to be removed. If he is volume overloaded, he will need another treatment again tomorrow. 2. Volume overload currently slightly improved. 3. MSSA bacteremia, most likely related to IJ PermCath with patient having very few options for sites for catheter placement. We will wait for the repeat blood cultures from yesterday and today. So far continue with the antibiotics. 4. Chronic kidney disease, mineral bone disorder. 5. Recent massive pulmonary embolism maintained on anticoagulation. 6. Chronic hypotension. PLAN: Hemodialysis today and possible dialysis again in a.m. based on volume status and blood cultures. MMODL / IJN: [id number] /
[2021-05-18 13:28] VITALS: TEMP 97.9
[2021-05-18] MEDS ORDERED: METOCLOPRAMIDE 5 MG/ML 2 ML VIAL IVP PRN (14:49)
--- NOTE | 2021-05-18 14:49 | P.PN ---
Subjective Progress Note Date: 05/18/21 Principal diagnosis: confusion Patient is a 46-year-old male with a history of diabetes mellitus on insulin pump, end-stage renal disease on hemodialysis, peripheral vascular disease, and recent diagnosis of massive pulmonary embolism requiring EKOS system who presented to the emergency department secondary to altered mentation, fever, and lethargy. On arrival to the ER he had a temperature of 104 and a pulse of 105. Laboratory analysis shows white blood cell count 21.6, hemoglobin 10.5, sodium 134, BUN 74, creatinine 10.7, troponin 0.089, BNP 74,100, cold was negative. Chest x-ray showed patchy bilateral areas of infiltrate with density in the right upper lobe concerning for pneumonia with increased vascular congestion. The ER he was given a dose of Rocephin and vancomycin. He was persistently hypotensive despite 1 L of IV fluid and therefore was started on levo. He was admitted to the ICU for further monitoring. He was found to have stap bacteremia likely due to infected catheter. Nephrology, critical care, vascular surgery, and ID were consulted. By the morning after admission patient had an elevated creatinine to 6.5 and was started on dialysis. His blood pressure had improved Levophed was off by 6:30am on 05/15. Blood cultures were positive for MSSA urine cultures was as well. Has HD catheter associated line infection due to difficult access and it being MSSA we'll attempt to treat without exchanging catheter. Blood cultures from 05/17 showed no growth for 24 hours. Patient seen and examined at bedside. Much more lethargic today, yesterday he was up in the chair for 2 hours, reports some shortness of breath, no pain, no nausea. General: ill appearing, mild distress, appears at stated age Derm: warm, dry Head: atraumatic, normocephalic, symmetric Eyes: EOMI, no lid lag, anicteric sclera Mouth: no lip lesion, mucus membranes moist Cardiovascular: S1S2 tachy, no murmur, positive posterior tibial pulse left, Lungs: Course bs bilateral, no rhonchi, no rales , no accessory muscle use Abdominal: soft, nontender to palpation, no guarding, no appreciable organomegaly Ext: no gross muscle atrophy, trace edema, no contractures Neuro: CN II-XI grossly intact, no focal neuro deficits Psych: lethargic oriented, appropriate affect Septic shock, due to MSSA bacteremia HD cath infection, toxic metabolic encephalopathy secondary to Septic shock Staph asymptomatic bacturia (patient without symptoms and concerns for HD cath related infection) - Covid testing was negative - off levophed - Pulmonary recs appreciated - ID recs: nafcillin - vascular recs -Maintain heparin drip and case cath does need to be changed, if continues to improve and blood cultures become negative will restart Eliquis. - on TTE no vegetation and preserved EF 55-60% Acute hypoxic respiratory failure - pulm recs - wean O2 as able Recent Massive Pulmonary embolism - heparin gtt Thrombocytopenia - likely reactive - follow CBC ESRD on HD, chronic anemia -Likely from end-stage renal disease -nephrology recs - aranesp Diabetes mellitus type 2 requiring insulin pump -Secondary to altered mentation will stop insulin pump -Sliding-scale insulin -Levemir 10 units am and PM -Hemoglobin A1c from 04/08/21 10. Lactic acidosis secondary to above -IV fluids -Repeat lactic acid Troponin elevation, likely secondary to end-stage renal disease -flat ACS ruled out Hyperkalemia, resolved Chronic: Obesity with BMI 41.6 Dyslipidemia Peripheral arterial disease status post right BKA Anemia of chronic disease, likely chronic renal disease DVT prophylaxis: heparin gtt Active Medications Acetaminophen (Acetaminophen Tab 325 Mg Tab) 650 mg PO Q6HR PRN PRN Reason: Mild Pain or Fever > 100.5 Atorvastatin Calcium (Atorvastatin 40 Mg Tab) 40 mg PO HS [facility] Last Admin: 05/17/21 21:22 Dose: 40 mg Documented by: Bisacodyl (Bisacodyl 5 Mg Tablet.Dr) 5 mg PO DAILY PRN PRN Reason: Constipation Calcium Acetate (Calcium Acetate 667 Mg Tab) 667 mg PO DAILY [facility] Last Admin: 05/18/21 08:47 Dose: 667 mg Documented by: Darbepoetin Bud (Darbepoetin Ubd 60 Mcg/0.3 Ml Syringe) 60 mcg SQ Q7D [facility] Last Admin: 05/16/21 11:52 Dose: 60 mcg Documented by: Ergocalciferol (Ergocalciferol 1,250 Mcg (50,000 Iu) Capsule) 1,250 mcg PO Q14D [facility] Last Admin: 05/17/21 12:29 Dose: 1,250 mcg Documented by: Heparin Sodium (Porcine) (Heparin Sodium 1,000 Un/Ml (10ml Vl)) 0 unit IV PER PROTOCOL PRN; Protocol PRN Reason: Low PTT Norepinephrine Bitartrate 4 mg (/ Sodium Chloride) 254 mls @ 19.01 mls/hr IV .[id number] [facility]; Protocol Last Admin: 05/18/21 11:54 Dose: Not Given Documented by: Heparin Sodium/Sodium Chloride (25,000 unit/ Sodium Chloride) 250 mls @ 19.134 mls/hr IV .Q13H4M [facility]; Protocol Last Admin: 05/18/21 08:42 Dose: 13 units/kg/hr, 13.819 mls/hr Documented by: Nafcillin Sodium 2 gm/ (Dextrose/Water) 100 mls @ 50 mls/hr IVPB Q4HR [facility] Last Admin: 05/18/21 13:29 Dose: Not Given Documented by: Insulin Aspart (Insulin Aspart (Novolog) 100 Unit/Ml Vial) 0 unit SQ ACHS [facility]; Protocol Last Admin: 05/18/21 14:46 Dose: Not Given Documented by: Insulin Detemir (Insulin Detemir (Levemir) 100 Unit/Ml Syr) 10 unit SQ HS [facility] Last Admin: 05/17/21 21:25 Dose: 10 unit Documented by: Insulin Detemir (Insulin Detemir (Levemir) 100 Unit/Ml Syr) 10 unit SQ DAILY@0700 [facility] Last Admin: 05/18/21 06:43 Dose: 10 unit Documented by: Levetiracetam (Levetiracetam 500 Mg Tab) 500 mg PO Q12HR [facility] Last Admin: 05/18/21 08:48 Dose: 500 mg Documented by: Melatonin (Melatonin 3 Mg Tablet) 3 mg PO HS PRN PRN Reason: Insomnia Metoclopramide HCl (Metoclopramide 5 Mg/Ml 2 Ml Vial) 5 mg IVP Q6HR [facility] Last Admin: 05/18/21 11:54 Dose: Not Given Documented by: Midodrine (Midodrine 5 Mg Tab) 10 mg PO TID [facility] Last Admin: 05/18/21 08:48 Dose: 10 mg Documented by: Multivit/Ca Carb/B Cmplx/FA/Prenat (Folic Acid-Vit B Complex-Vit C 1 Cap) 1 each PO DAILY [facility] Last Admin: 05/18/21 08:48 Dose: 1 each Documented by: Naloxone HCl (Naloxone 0.4 Mg/Ml 1 Ml Vial) 0.2 mg IV Q2M PRN PRN Reason: Opioid Reversal Ondansetron HCl (Ondansetron 4 Mg Tab) 4 mg PO BID PRN PRN Reason: Nausea Ondansetron HCl (Ondansetron 4 Mg/2 Ml Vial) 4 mg IVP Q8HR PRN PRN Reason: Nausea And Vomiting Last Admin: 05/16/21 14:43 Dose: 4 mg Documented by: Oxycodone/Acetaminophen (Oxycodone-Apap 10-325mg 1 Each Tab) 1 each PO Q6H [facility] Last Admin: 05/18/21 08:43 Dose: Not Given Documented by: Pantoprazole Sodium (Pantoprazole 40 Mg Tablet) 40 mg PO AC-BRKFST [facility] Last Admin: 05/18/21 06:43 Dose: 40 mg Documented by: Pregabalin (Pregabalin 100 Mg Cap) 200 mg PO TID [facility] Last Admin: 05/18/21 08:48 Dose: 200 mg Documented by: Timolol Maleate (Timolol 0.5% Ophth Drops 5 Ml Btl) 1 drops RIGHT EYE BID [facility] Last Admin: 05/18/21 08:48 Dose: 1 drops Documented by: Objective - Vital Signs Vital signs: Vital Signs Temp 97.9 F 05/18/21 14:44 Pulse 90 05/18/21 14:44 Resp 15 05/18/21 14:44 BP 148/89 05/18/21 14:44 Pulse Ox 98 05/18/21 13:00 Intake & Output 05/17/21 05/18/21 05/18/21 18:59 06:59 18:59 Intake Total 724.564 830 240 Output Total 40 1000 Balance 684.564 830 -760 Weight 105.4 kg Intake: IV 420 520 240 Nafcillin 2 gm In 300 300 100 Dextrose 5% in Water 100 ml @ 50 mls/hr IVPB Q4HR [facility] Rx#:[id number] Sodium Chloride 0.9% 1, 120 220 140 000 ml @ 40 mls/hr IV . Q24H [facility] Rx#:[id number] Intake, IV Titration 104.564 250 Amount Heparin Sod,Pork in 0.45% 104.564 250 NaCl 25,000 unit In 0.45 % NaCl 1 250ml.bag @ 18 UNITS/KG/HR 19.134 mls/hr IV .Q13H4M [facility] Rx#: [id number] Oral 200 60 Output: Urine 40 Hemodialysis 1000 Other: Voiding Method Urinal Urinal Urinal # Voids 0 - Labs CBC & Chem 7: 05/18/21 04:13 05/18/21 04:13 Labs: Abnormal Lab Results - Last 24 Hours (Table) 05/17/21 05/17/21 05/18/21 Range/Units 16:47 21:06 04:13 RBC (4.30-5.90) m/uL Hgb (13.0-17.5) gm/dL Hct (39.0-53.0) % RDW (11.5-15.5) % Plt Count (150-450) k/uL Neutrophils # (1.3-7.7) k/uL APTT 56.5 H (22.0-30.0) sec Sodium (137-145) mmol/L Carbon Dioxide (22-30) mmol/L BUN (9-20) mg/dL Creatinine (0.66-1.25) mg/dL Glucose (74-99) mg/dL POC Glucose (mg/dL) 285 H 290 H (75-99) mg/dL Calcium (8.4-10.2) mg/dL 05/18/21 05/18/21 05/18/21 Range/Units 04:13 04:13 06:30 RBC 3.38 L (4.30-5.90) m/uL Hgb 10.1 L (13.0-17.5) gm/dL Hct 31.5 L (39.0-53.0) % RDW 17.1 H (11.5-15.5) % Plt Count 94 L (150-450) k/uL Neutrophils # 8.4 H (1.3-7.7) k/uL APTT (22.0-30.0) sec Sodium 135 L (137-145) mmol/L Carbon Dioxide 21 L (22-30) mmol/L BUN 57 H (9-20) mg/dL Creatinine 8.07 H* (0.66-1.25) mg/dL Glucose 216 H (74-99) mg/dL POC Glucose (mg/dL) 212 H (75-99) mg/dL Calcium 7.6 L (8.4-10.2) mg/dL 05/18/21 Range/Units 11:01 RBC (4.30-5.90) m/uL Hgb (13.0-17.5) gm/dL Hct (39.0-53.0) % RDW (11.5-15.5) % Plt Count (150-450) k/uL Neutrophils # (1.3-7.7) k/uL APTT (22.0-30.0) sec Sodium (137-145) mmol/L Carbon Dioxide (22-30) mmol/L BUN (9-20) mg/dL Creatinine (0.66-1.25) mg/dL Glucose (74-99) mg/dL POC Glucose (mg/dL) 196 H (75-99) mg/dL Calcium (8.4-10.2) mg/dL Microbiology - Last 24 Hours (Table) 05/16/21 09:08 Blood Culture Gram Stain - Preliminary Blood Blood Culture - Preliminary Staphylococcus aureus 05/17/21 03:49 Blood Culture - Preliminary Blood No Growth after 24 hours 05/14/21 18:10 Blood Culture - Preliminary Blood No Growth after 72 hours 05/14/21 18:24 Urine Culture - Final Urine,Voided Staphylococcus aureus
--- NOTE | 2021-05-18 16:34 | PN ---
PROGRESS NOTE DATE OF SERVICE: 05/18/2021 REASON FOR FOLLOWUP: MSSA bacteremia. INTERVAL HISTORY: The patient is afebrile. The patient is slightly sleepy and lethargic today. The patient is hemodynamically stable. Undergoing dialysis. No vomiting, diarrhea or other changes reported as per nursing staff. PHYSICAL EXAMINATION: Blood pressure 142/89, respiratory rate ( ), temperature ( ) oxygen saturation on 98% on 4 L nasal cannula. General description is a middle-aged male lying in bed in no distress. Respiratory system: Unlabored breathing, decreased BS. No wheeze. Heart S1, S2. Regular rate and rhythm. Abdomen: Soft. No tenderness. Extremities: No edema of the feet. LABS: ( ) noted Hemoglobin 10.5, BUN and creatinine . Blood culture from yesterday so far negative. DIAGNOSTIC IMPRESSION AND PLAN: Patient with persistent MSSA bacteremia concerning for the PermCath infection. Patient benefit from removal of PermCath. Waiting for the blood culture and removal of the Permcath to discuss further with surgery. Continue to monitor clinical course closely. MMODL / IJN: [id number] /
[2021-05-18 16:55] LABS: Glucose,Whole Blood 132 mg/dL (75-99)
[2021-05-18 18:06] VITALS: BP 137/77; PULSE 91; RESP 12
--- NOTE | 2021-05-19 08:55 | P.DS ---
Providers Date of admission: 05/14/21 15:49 Expected date of discharge: 05/19/21 Attending physician: Cecily Abdalla DO Consults: 05/14/21 15:45 Consult Physician Stat Consulting Provider: Anisha Celeste Consult Reason/Comments: Sepsis, pneumonia, hypotension, chronic renal failure Do you want consulting provider notified?: Already Contacted Consult Physician Urgent Consulting Provider: Jinny Cope Consult Reason/Comments: Endocrine no further, dialysis, hypertension Do you want consulting provider notified?: Already Contacted 05/15/21 08:42 Consult Physician Routine Consulting Provider: Oumou Pereira Consult Reason/Comments: possible permacath infection, bacteremia, sepsis Do you want consulting provider notified?: Yes 05/15/21 08:48 Consult Physician Urgent Consulting Provider: Elkin Arndt Consult Reason/Comments: bacteremia, possible permacath infection Do you want consulting provider notified?: Yes Primary care physician: Baldev Ayers MD Hospital Course: Discharge Diagnosis: Septic shock, due to MSSA bacteremia HD cath infection, toxic metabolic encephalopathy secondary to Septic shock Staph asymptomatic bacturia (patient without symptoms and concerns for HD cath related infection) Acute hypoxic respiratory failure Recent Massive Pulmonary embolism Thrombocytopenia ESRD on HD, chronic anemia Diabetes mellitus type 2 requiring insulin pump Lactic acidosis secondary to above Troponin elevation, likely secondary to end-stage renal disease Obesity with BMI 41.6 Dyslipidemia Peripheral arterial disease status post right BKA Anemia of chronic disease, likely chronic renal disease Hospital Course: Patient is a 46-year-old male with a history of diabetes mellitus on insulin pump, end-stage renal disease on hemodialysis, peripheral vascular disease, and recent diagnosis of massive pulmonary embolism requiring EKOS system who presented to the emergency department secondary to altered mentation, fever, and lethargy. On arrival to the ER he had a temperature of 104 and a pulse of 105. Laboratory analysis shows white blood cell count 21.6, hemoglobin 10.5, sodium 134, BUN 74, creatinine 10.7, troponin 0.089, BNP 74,100, cold was negative. Chest x-ray showed patchy bilateral areas of infiltrate with density in the right upper lobe concerning for pneumonia with increased vascular congestion. The ER he was given a dose of Rocephin and vancomycin. He was persistently hypotensive despite 1 L of IV fluid and therefore was started on levo. He was admitted to the ICU for further monitoring. He was found to have stap bacteremia likely due to infected catheter. Nephrology, critical care, vascular surgery, and ID were consulted. By the morning after admission patient had an elevated creatinine to 6.5 and was started on dialysis. His blood pressure had improved Levophed was off by 6:30am on 05/15. Blood cultures were positive for MSSA urine cultures was as well. Has HD catheter associated line infection due to difficult access and it being MSSA we'll attempt to treat without exchanging catheter. Blood cultures from 05/17 again turned positive and after discussion with nephrology and vascular surgery he will need a line exchange. Unable to preform here due to difficult vascular access with hx of hero graft and all procedures at [facility]. Patient was accepted by Dr. Jose G Bee and arrangements were made for transfer. For physical exam see progress note same date A total of 35 minutes of time were spent preparing this complex discharge summary . Patient Condition at Discharge: Serious Plan - Discharge Summary New Discharge Prescriptions: No Action Ergocalciferol [Vitamin D2 (DRISDOL)] 50,000 unit PO Q14D Atorvastatin [Lipitor] 40 mg PO HS Dialyvite 1 tab PO DAILY Timolol [Betimol 0.5% Ophth Soln] 1 drop RIGHT EYE BID Omeprazole [PriLOSEC] 20 mg PO BID INSULIN LISPRO (For Pump) [humaLOG (For Pump)] 0.01 units SQ-PUMP CONTINUOUS Furosemide [Lasix] 80 mg PO BID oxyCODONE-APAP 10-325MG [Percocet 10-325 mg] 1 tab PO Q6H Pregabalin [Lyrica] 200 mg PO TID Ondansetron HCl [Zofran] 4 mg PO BID PRN PRN Reason: Nausea Apixaban [Eliquis] 5 mg PO BID Calcium Acetate [Phoslo] 667 mg PO DAILY Midodrine HCl [ProAmatine] 10 mg PO TID Metoclopramide [Reglan] 5 mg PO TID-W/MEALS Heparin Sodium,Porcine [Heparin Sodium] 64,000 units MISCELLANE MOTUWEFRSA levETIRAcetam [Keppra] 500 mg PO Q12HR #60 tab Discharge Medication List Atorvastatin [Lipitor] 40 mg PO HS 01/31/17 [History] Dialyvite 1 tab PO DAILY 01/31/17 [History] Ergocalciferol [Vitamin D2 (DRISDOL)] 50,000 unit PO Q14D 01/31/17 [History] INSULIN LISPRO (For Pump) [humaLOG (For Pump)] 0.01 units SQ-PUMP CONTINUOUS 01/31/17 [History] Omeprazole [PriLOSEC] 20 mg PO BID 01/31/17 [History] Timolol [Betimol 0.5% Ophth Soln] 1 drop RIGHT EYE BID 01/31/17 [History] Furosemide [Lasix] 80 mg PO BID 10/01/20 [History] Pregabalin [Lyrica] 200 mg PO TID 10/01/20 [History] oxyCODONE-APAP 10-325MG [Percocet 10-325 mg] 1 tab PO Q6H 10/01/20 [History] Heparin Sodium,Porcine [Heparin Sodium] 64,000 units MISCELLANE MOTUWEFRSA 03/16/21 [History] Metoclopramide [Reglan] 5 mg PO TID-W/MEALS 03/16/21 [History] Midodrine HCl [ProAmatine] 10 mg PO TID 03/16/21 [History] Ondansetron HCl [Zofran] 4 mg PO BID PRN 03/16/21 [History] levETIRAcetam [Keppra] 500 mg PO Q12HR #60 tab 04/15/21 [Rx] Apixaban [Eliquis] 5 mg PO BID 05/14/21 [History] Calcium Acetate [Phoslo] 667 mg PO DAILY 05/14/21 [History] Follow up Appointment(s)/Referral(s): Baldev Ayers MD [Primary Care Provider] - 1-2 days Discharge Disposition: DC/TRNS IP HOSP W/PLND IP READ
== END 2021-05-18 19:00 | disposition short-term general hospital, planned readmission (82) | DRG 314 ==
LOC: EC 11:02 → 2SICU 15:49
PROVIDERS: ADMIT Internal Medicine; ATTEND Internal Medicine
PROC: 3E033XZ Introduction of Vasopressor into Peripheral Vein, Percutaneous Approach (ICD-10-PCS; 2021-05-14)
PROC: 5A1D70Z Performance of Urinary Filtration, Intermittent, Less than 6 Hours Per Day (ICD-10-PCS; principal; 2021-05-18)
DX: T82.7XXA Infection and inflammatory reaction due to other cardiac and vascular devices, implants and grafts, initial encounter (principal); A41.01 Sepsis due to Methicillin susceptible Staphylococcus aureus; G92 Toxic encephalopathy; J18.9 Pneumonia, unspecified organism; J96.01 Acute respiratory failure with hypoxia; N18.6 End stage renal disease; R65.21 Severe sepsis with septic shock; E87.2 Acidosis; N39.0 Urinary tract infection, site not specified; Z68.41 Body mass index [BMI] 40.0-44.9, adult; D63.1 Anemia in chronic kidney disease; D69.6 Thrombocytopenia, unspecified; E11.22 Type 2 diabetes mellitus with diabetic chronic kidney disease; E11.51 Type 2 diabetes mellitus with diabetic peripheral angiopathy without gangrene; E66.01 Morbid (severe) obesity due to excess calories; I27.20 Pulmonary hypertension, unspecified; I95.89 Other hypotension; Z99.2 Dependence on renal dialysis; G40.909 Epilepsy, unspecified, not intractable, without status epilepticus; E78.5 Hyperlipidemia, unspecified; E83.9 Disorder of mineral metabolism, unspecified; E87.5 Hyperkalemia; E87.70 Fluid overload, unspecified; F41.9 Anxiety disorder, unspecified; Z20.822 Contact with and (suspected) exposure to COVID-19; G47.00 Insomnia, unspecified; H10.9 Unspecified conjunctivitis; Z86.711 Personal history of pulmonary embolism; Z79.01 Long term (current) use of anticoagulants; K59.00 Constipation, unspecified; R77.8 Other specified abnormalities of plasma proteins; Y84.8 Other medical procedures as the cause of abnormal reaction of the patient, or of later complication, without mention of misadventure at the time of the procedure; Z79.4 Long term (current) use of insulin; Z79.899 Other long term (current) drug therapy; Z86.16 Personal history of COVID-19; Z87.01 Personal history of pneumonia (recurrent); Z89.511 Acquired absence of right leg below knee; Z96.41 Presence of insulin pump (external) (internal); Z98.42 Cataract extraction status, left eye; Z98.41 Cataract extraction status, right eye; Z98.890 Other specified postprocedural states
CPT/HCPCS: 36415; 36600; 71045; 71046; 80048; 80053; 80202; 81001; 82550; 82805; 83605; 83735; 83880; 84145; 84484; 85025; 85027; 85610; 85730; 87040; 87077; 87086; 87186; 87635; 90935; 93005; 93308; 93970; 96361; 96374; 99291

== ENCOUNTER 2021-08-06 07:45 | Inpatient (IN) | payer MEDICARE, OTHER ==
[2021-08-06] MEDS ORDERED: ACETAMINOPHEN TAB 500 MG TAB PO STA (08:06)
[2021-08-06] MEDS ORDERED: SODIUM CHLORIDE 0.9% 500 ML 500 ML IV STA (08:06)
[2021-08-06 08:45] LABS: Basophils % (A) 0 %; Eosinophils # (A) 0.1 k/uL (0-0.7); Eosinophils % (A) 1 %; HCT 31.9 % (39.0-53.0); HGB 9.7 gm/dL (13.0-17.5); Hypochromasia Slight; Lymphocytes # (A) 0.8 k/uL (1.0-4.8); Lymphocytes % (A) 8 %; MCH 29.2 pg (25.0-35.0); MCHC 30.4 g/dL (31.0-37.0); MCV 95.9 fL (80.0-100.0); Mean Platelet Volume 11.5; Monocytes # (A) 0.4 k/uL (0-1.0); Monocytes % (A) 4 %; Neutrophils # (A) 7.8 k/uL (1.3-7.7); Neutrophils % (A) 84 %; Platelet Count 123 k/uL (150-450); RBC 3.32 m/uL (4.30-5.90); RDW 15.8 % (11.5-15.5); WBC 9.2 k/uL (3.8-10.6)
--- NOTE | 2021-08-06 08:48 | ED ---
Fever HPI - General Chief Complaint: Fever Stated Complaint: fever and weakness Time Seen by Provider: 08/06/21 07:49 Source: patient, EMS, RN notes reviewed Mode of arrival: EMS Limitations: no limitations - History of Present Illness Initial Comments: This a 46-year-old male presents emergency department via EMS with chief complaint of fever, weakness. Patient states he started having chills on Friday and has progressively felt more weak. Patient did do dialysis at home on Friday. Patient states that he recently had a new catheter placed in his chest for dialysis as his last one was infected. Patient states he does make urine approximately twice daily. He denies missing any days of dialysis. Patient denies any significant cough congestion abdominal pain. Patient does admit that he wears 3 L oxygen at home does not feel any increasing shortness of breath. - Related Data Home Medications Medication Instructions Recorded Confirmed Dialyvite 1 tab PO DAILY 01/31/17 08/06/21 Ergocalciferol [Vitamin D2 50,000 unit PO Q14D 01/31/17 08/06/21 (DRISDOL)] INSULIN LISPRO (For Pump) [humaLOG 0.01 units SQ-PUMP CONTINUOUS 01/31/17 08/06/21 (For Pump)] Omeprazole [PriLOSEC] 20 mg PO BID 01/31/17 08/06/21 Timolol [Betimol 0.5% Ophth Soln] 1 drop RIGHT EYE BID 01/31/17 08/06/21 Furosemide [Lasix] 80 mg PO BID 10/01/20 08/06/21 Pregabalin [Lyrica] 200 mg PO TID 10/01/20 08/06/21 oxyCODONE-APAP 10-325MG [Percocet 1 tab PO Q6H 10/01/20 08/06/21 10-325 mg] Metoclopramide [Reglan] 5 mg PO AC-TID 03/16/21 08/06/21 Midodrine HCl [ProAmatine] 10 mg PO TID 03/16/21 08/06/21 Ondansetron HCl [Zofran] 4 mg PO BID 03/16/21 08/06/21 Apixaban [Eliquis] 5 mg PO BID 05/14/21 08/06/21 Calcium Acetate [Phoslo] 667 mg PO AC-LUNCH 05/14/21 08/06/21 Aspirin EC [Ecotrin Low Dose] 81 mg PO DAILY 08/06/21 08/06/21 Dulaglutide [Trulicity] 1.5 mg SQ WE 08/06/21 08/06/21 Heparin 1000 Units/Ml 6,400 units SQ MOTUTHFRSA 08/06/21 08/06/21 Sennosides/Docusate Sodium [Senna 1 tab PO BID PRN 08/06/21 08/06/21 Plus 8.6-50 mg Tablet] Vilazodone HCl [Viibryd] 40 mg PO PC-SUPPER 08/06/21 08/06/21 traZODone HCL [Desyrel] 100 mg PO HS 08/06/21 08/06/21 Allergies Allergy/AdvReac Type Severity Reaction Status Date / Time No Known Allergies Allergy Verified 08/06/21 09:25 Review of Systems ROS Statement: Those systems with pertinent positive or pertinent negative responses have been documented in the HPI. ROS Other: All systems not noted in ROS Statement are negative. Past Medical History Past Medical History: Diabetes Mellitus, Dialysis, GERD/Reflux, Hyperlipidemia, Pulmonary Embolus (PE), Renal Disease, Seizure Disorder, Syncope Additional Past Medical History / Comment(s): constipation, anemia, peripheral vascular disease, diabetes mellitus on insulin pump for blood sugar control, previous history of massive pulmonary embolism - ECOS, hyperlipidemia, HD at home History of Any Multi-Drug Resistant Organisms: None Reported Additional Past Surgical History / Comment(s): tom cataract, peritoneal dialysis catheter rt side, ECOS 03/19/21, [facility] HD site left chest, right forearm fistula - no longer active, left arm fistula - no longer active, right chest HD temp. HD cath., RBKA Past Anesthesia/Blood Transfusion Reactions: No Reported Reaction Past Psychological History: Anxiety, Depression Smoking Status: Never smoker Past Alcohol Use History: None Reported Past Drug Use History: None Reported - Past Family History Mother Family Medical History: Cancer Father Family Medical History: Dementia General Exam Limitations: no limitations General appearance: alert, in no apparent distress Head exam: Present: atraumatic, normocephalic, normal inspection Eye exam: Present: normal appearance, PERRL, EOMI. Absent: scleral icterus, conjunctival injection, periorbital swelling ENT exam: Present: normal exam, normal oropharynx, mucous membranes moist Neck exam: Present: normal inspection, full ROM. Absent: tenderness, meningismus, lymphadenopathy Respiratory exam: Present: normal lung sounds bilaterally. Absent: respiratory distress, wheezes, rales, rhonchi, stridor Cardiovascular Exam: Present: normal rhythm, tachycardia, normal heart sounds. Absent: systolic murmur, diastolic murmur, rubs, gallop, clicks GI/Abdominal exam: Present: soft, normal bowel sounds. Absent: distended, tenderness, guarding, rebound, rigid Neurological exam: Present: alert, oriented X3 Skin exam: Present: warm, dry, intact, normal color. Absent: rash Course Vital Signs 08/06/21 08/06/21 08/06/21 07:48 08:06 08:15 Temperature 101.4 F H Pulse Rate 102 H 96 Respiratory 21 20 19 Rate Blood Pressure 83/51 80/43 O2 Sat by Pulse 83 L 92 L Oximetry 08/06/21 09:22 Temperature Pulse Rate 92 Respiratory 17 Rate Blood Pressure 91/54 O2 Sat by Pulse 92 L Oximetry Procedures - Sepsis Sepsis Focused Exam #1 Time Sepsis Criteria Met: 09:50 Sepsis Focused Exam Date: 08/06/21 Sepsis Focused Exam Time: 09:54 Sepsis Focused Exam Complete: Yes Vital Signs & RN Notes Reviewed: Yes Capillary Refill: < 2 Seconds: Fingers Peripheral Pulses: Normal: Radial (R), Radial (L) Skin Color: Normal for Patient Respiratory Exam: normal lung sounds Cardiovascular Exam: regular rate, normal rhythm Medical Decision Making - Medical Decision Making 46-year-old male presented for generalized weakness and fever. Patient afebrile, hypotensive. Patient's x-ray shows possibly a pneumonia. Patient is cold and negative was given a dose of broad-spectrum antibiotics. Patient was not given fluid bolus of 30 mL/kg secondary to end-stage renal disease on dialysis. Patient is blood pressure is slightly improved at 90/50. Patient will be admitted for IV antibiotics concern for sepsis, catheter infection. - Lab Data Result diagrams: 08/06/21 08:16 08/06/21 08:16 Lab Results 08/06/21 08/06/21 08/06/21 Range/Units 08:16 08:16 08:16 WBC 9.2 (3.8-10.6) k/uL RBC 3.32 L (4.30-5.90) m/uL Hgb 9.7 L (13.0-17.5) gm/dL Hct 31.9 L (39.0-53.0) % MCV 95.9 (80.0-100.0) fL MCH 29.2 (25.0-35.0) pg MCHC 30.4 L (31.0-37.0) g/dL RDW 15.8 H (11.5-15.5) % Plt Count 123 L (150-450) k/uL MPV 11.5 Hypochromasia Slight Sodium 137 (137-145) mmol/L Potassium 4.0 (3.5-5.1) mmol/L Chloride 97 L (98-107) mmol/L Carbon Dioxide 23 (22-30) mmol/L Anion Gap 17 mmol/L BUN 59 H (9-20) mg/dL Creatinine 9.64 H* (0.66-1.25) mg/dL Est GFR (CKD-EPI)AfAm 7 (>60 ml/min/1.73 sqM) Est GFR (CKD-EPI)NonAf 6 (>60 ml/min/1.73 sqM) Glucose 242 H (74-99) mg/dL Plasma Lactic Acid Steven 1.9 (0.7-2.0) mmol/L Calcium 8.5 (8.4-10.2) mg/dL Phosphorus 1.8 L (2.5-4.5) mg/dL Magnesium 1.9 (1.6-2.3) mg/dL Total Bilirubin 0.7 (0.2-1.3) mg/dL AST 43 (17-59) U/L ALT 21 (4-49) U/L Alkaline Phosphatase 155 H (38-126) U/L Total Protein 6.6 (6.3-8.2) g/dL Albumin 3.2 L (3.5-5.0) g/dL Coronavirus (PCR) (Not Detectd) 08/06/21 Range/Units 08:16 WBC (3.8-10.6) k/uL RBC (4.30-5.90) m/uL Hgb (13.0-17.5) gm/dL Hct (39.0-53.0) % MCV (80.0-100.0) fL MCH (25.0-35.0) pg MCHC (31.0-37.0) g/dL RDW (11.5-15.5) % Plt Count (150-450) k/uL MPV Hypochromasia Sodium (137-145) mmol/L Potassium (3.5-5.1) mmol/L Chloride (98-107) mmol/L Carbon Dioxide (22-30) mmol/L Anion Gap mmol/L BUN (9-20) mg/dL Creatinine (0.66-1.25) mg/dL Est GFR (CKD-EPI)AfAm (>60 ml/min/1.73 sqM) Est GFR (CKD-EPI)NonAf (>60 ml/min/1.73 sqM) Glucose (74-99) mg/dL Plasma Lactic Acid Steven (0.7-2.0) mmol/L Calcium (8.4-10.2) mg/dL Phosphorus (2.5-4.5) mg/dL Magnesium (1.6-2.3) mg/dL Total Bilirubin (0.2-1.3) mg/dL AST (17-59) U/L ALT (4-49) U/L Alkaline Phosphatase (38-126) U/L Total Protein (6.3-8.2) g/dL Albumin (3.5-5.0) g/dL Coronavirus (PCR) Not Detected (Not Detectd) - EKG Data -: EKG Interpreted by Me EKG Comments: EKG performed at 17:51 sinus tachycardia rate of 103 CO 1:30 QRS 76 QT/QTC 334/437 Critical Care Time Critical Care Time: Yes Total Critical Care Time: 35 Disposition Clinical Impression: Sepsis, End stage renal failure on dialysis, Pneumonia Disposition: ADMITTED IP TO THIS HOSP Condition: Serious Referrals: Baldev Ayers MD [Primary Care Provider] - 1-2 days
--- NOTE | 2021-08-06 09:15 | XR ---
EXAMINATION TYPE: XR chest 1V portable DATE OF EXAM: 08/06/2021 COMPARISON: 05/16/2021 HISTORY: Fever TECHNIQUE: Single frontal view of the chest is obtained. FINDINGS: There is no focal air space opacity, pleural effusion, or pneumothorax seen. The cardiac silhouette size is within normal limits. The osseous structures are intact. Bilateral dialysis cath eter seen with the tip overlying the right atrium. Vague nodular density left upper lobe. Chronic rib deformities noted. Interstitium within normal limits. IMPRESSION: 1. Vague nodular appearing density left upper lobe prior exam could be related to superimposed struct ures. Pulmonary nodule not excluded. Early infiltrate in the differential diagnosis correlate clinica lly
[2021-08-06 09:26] LABS: Albumin 3.2 g/dL (3.5-5.0); Calcium 8.5 mg/dL (8.4-10.2); Magnesium 1.9 mg/dL (1.6-2.3); Phosphorus 1.8 mg/dL (2.5-4.5); Total Bilirubin 0.7 mg/dL (0.2-1.3); Total Protein 6.6 g/dL (6.3-8.2)
[2021-08-06] MEDS ORDERED: NALOXONE 0.4 MG/ML 1 ML VIAL IV PRN (09:56)
[2021-08-06] MEDS ORDERED: ACETAMINOPHEN TAB 325 MG TAB PO PRN (09:56)
[2021-08-06 10:19] LABS: Amorphous Sediment,Urine Rare /hpf; Appearance,Urine Cloudy (Clear); Bacteria,Urine Rare /hpf; Bilirubin,Urine Negative (Negative); Blood,Urine Large (Negative); Color,Urine Yellow; Glucose,Urine (UA) Trace (Negative); Hyaline Casts,Urine 3 /lpf (0-2); Ketones,Urine Negative (Negative); Leukocyte Esterase,Urine Large (Negative); Mucus,Urine Rare /hpf; Nitrite,Urine Negative (Negative); PH, Urine 5.5 (5.0-8.0); Protein,Urine 2+ (Negative); RBC,Urine 144 /hpf (0-5); Specific Gravity,Urine 1.023 (1.001-1.035); Squamous Epithelial Cell,Urine 4 /hpf (0-4); Urobilinogen,Urine <2.0 mg/dL (<2.0); WBC,Urine 81 /hpf (0-5)
[2021-08-06] MEDS ORDERED: NON FORMULARY DRUG (Ergocalciferol 50,000 UNIT Cap) PO SCH (11:45)
[2021-08-06] MEDS ORDERED: INSULIN LISPRO (For Pump) 100 UNIT/ML VIAL SQ-PUMP SCH (11:45)
[2021-08-06 12:28] LABS: Glucose,Whole Blood 216 mg/dL (75-99)
[2021-08-06] MEDS: oxyCODONE-APAP 10-325MG 1 EACH TAB PO SCH ×3 (12:28→23:34)
[2021-08-06] MEDS: METOCLOPRAMIDE 5 MG TAB PO SCH ×2 (12:29→18:53)
[2021-08-06] MEDS: CALCIUM ACETATE 667 MG TAB PO SCH (12:35)
[2021-08-06] MEDS: MIDODRINE 5 MG TAB PO SCH ×2 (16:12→21:17)
[2021-08-06] MEDS: FUROSEMIDE 80 MG TAB PO SCH (16:12)
[2021-08-06] MEDS: PREGABALIN 100 MG CAP PO SCH ×2 (16:12→21:15)
[2021-08-06] MEDS ORDERED: ONDANSETRON 4 MG/2 ML VIAL IVP PRN (16:32)
--- NOTE | 2021-08-06 16:37 | P.HPIM ---
History of Present Illness H&P Date: 08/06/21 Chief Complaint: chills Patient is a 46-year-old male with end-stage renal disease on dialysis at home 5 times weekly, diabetes mellitus type 2 on insulin pump, neuropathy, and multiple other comorbid conditions who presented to the ER secondary to chills and rigors. In the ER he underwent an extensive evaluation. His CLOtest negative, white blood cell count was normal, chest x-ray showed no signs of pneumonia, but he was found to have a fever of 101.4. He was given a dose of Rocephin and Tylenol agents made for admission. Patient recently had a staph bacteremia requiring removal and reinsertion of his hemodialysis port. He states he believes that antibiotics finished earlier this month. Patient seen and examined at bedside. He reports that he felt well yesterday and this morning woke up having chills and fatigue. Denies any shortness of breath or cough. Denies any nausea or vomiting. He reports that he has been doing well up until this morning. He isn't taking dialysis. His last hemoglobin A1c was 5.9 and he continues to use his insulin pump. He denies dyuria and urinary frequency Pertinent positives and negatives as discussed in HPI, a complete review of systems was performed and all other systems are negative. General: non toxic, no distress, appears older than stated age Derm: warm, dry, no erythema around hemodialysis catheter dressing, 2 sutures left intact in right that Head: atraumatic, normocephalic, symmetric Eyes: EOMI, no lid lag, anicteric sclera, pupils equal round reactive to light ENT: Nose and ears atraumatic, no thrush, no pharyngeal erythema Neck: No thyromegaly, no cervical lymphadenopathy, trachea midline, supple Mouth: no lip lesion, mucus membranes moist Cardiovascular: S1S2 reg, no murmur, positive posterior tibial pulse left lower extremity, no edema, capillary refill less than 2 seconds Lungs: clear to ascultation bilateral, no ronchi, no rales, no wheeze, no accessory muscle use Abdominal: soft, nontender to palpation, no guarding, no appreciable organomegaly, normal bowel sounds Ext: no gross muscle atrophy, muscle strength muscle strength 5 out of 5 in bilateral upper extremities, 5 out of 5 in left lower extremity, BKA right lower extremity Neuro: CN II-XI grossly intact, light touch intact all 4 extremities, finger to nose within normal limits, Psych: Alert, oriented, appropriate affect Pyrexia in a patient with recent MSSA catheter associated bacteremia -Chest x-rays no signs of pneumonia -Urinalysis is not consistent with urinary tract infection -Coated testing negative -Check for flu and RSV -Await blood cultures -Continue with Cefazolin - repeat CXR in AM ESRD - consult nephrology - phos low DM 1 with isulin pump Neuropathy - continue with trulicity and insulin pump - follow BS - last A1C 5.9 - lyrica Recent Pulmonary Embolism - eliquis The patient is admitted with an anticipated greater than 2 midnight stay for evaluation of pyrexia Surrogate decision-maker: son CODE STATUS:full DVT prophylaxis: reid Discussed with: patient, Dr. Anatoliy izquierdo Anticipated discharge date: in 2-[address]: home A total of 65 minutes was spent on the care of this complex patient more than 50% of the time was spent in counseling and care coordination. Past Medical History Past Medical History: Diabetes Mellitus, Dialysis, GERD/Reflux, Hyperlipidemia, Pulmonary Embolus (PE), Renal Disease, Seizure Disorder, Syncope Additional Past Medical History / Comment(s): constipation, anemia, peripheral vascular disease, diabetes mellitus on insulin pump for blood sugar control, previous history of massive pulmonary embolism - ECOS, hyperlipidemia, HD at home History of Any Multi-Drug Resistant Organisms: None Reported Additional Past Surgical History / Comment(s): tmo cataract, peritoneal dialysis catheter rt side, ECOS 03/19/21, [facility] HD site left chest, right forearm fistula - no longer active, left arm fistula - no longer active, right chest HD temp. HD cath., RBKA Past Anesthesia/Blood Transfusion Reactions: No Reported Reaction Past Psychological History: Anxiety, Depression Smoking Status: Never smoker Past Alcohol Use History: None Reported Past Drug Use History: None Reported - Past Family History Mother Family Medical History: Cancer Father Family Medical History: Dementia Medications and Allergies Home Medications Medication Instructions Recorded Confirmed Type Dialyvite 1 tab PO DAILY 01/31/17 08/06/21 History Ergocalciferol [Vitamin D2 50,000 unit PO Q14D 01/31/17 08/06/21 History (DRISDOL)] INSULIN LISPRO (For Pump) [humaLOG 0.01 units SQ-PUMP CONTINUOUS 01/31/17 08/06/21 History (For Pump)] Omeprazole [PriLOSEC] 20 mg PO BID 01/31/17 08/06/21 History Timolol [Betimol 0.5% Ophth Soln] 1 drop RIGHT EYE BID 01/31/17 08/06/21 History Furosemide [Lasix] 80 mg PO BID 10/01/20 08/06/21 History Pregabalin [Lyrica] 200 mg PO TID 10/01/20 08/06/21 History oxyCODONE-APAP 10-325MG [Percocet 1 tab PO Q6H 10/01/20 08/06/21 History 10-325 mg] Metoclopramide [Reglan] 5 mg PO AC-TID 03/16/21 08/06/21 History Midodrine HCl [ProAmatine] 10 mg PO TID 03/16/21 08/06/21 History Ondansetron HCl [Zofran] 4 mg PO BID 03/16/21 08/06/21 History Apixaban [Eliquis] 5 mg PO BID 05/14/21 08/06/21 History Calcium Acetate [Phoslo] 667 mg PO AC-LUNCH 05/14/21 08/06/21 History Aspirin EC [Ecotrin Low Dose] 81 mg PO DAILY 08/06/21 08/06/21 History Dulaglutide [Trulicity] 1.5 mg SQ WE 08/06/21 08/06/21 History Heparin 1000 Units/Ml 6,400 units SQ MOTUTHFRSA 08/06/21 08/06/21 History Sennosides/Docusate Sodium [Senna 1 tab PO BID PRN 08/06/21 08/06/21 History Plus 8.6-50 mg Tablet] Vilazodone HCl [Viibryd] 40 mg PO PC-SUPPER 08/06/21 08/06/21 History traZODone HCL [Desyrel] 100 mg PO HS 08/06/21 08/06/21 History Allergies Allergy/AdvReac Type Severity Reaction Status Date / Time No Known Allergies Allergy Verified 08/06/21 09:25 Physical Exam Osteopathic Statement: *. No significant issues noted on an osteopathic s tructural exam other than those noted in the History and Physical/Consult. Vitals: Vital Signs Temp Pulse Resp BP Pulse Ox 08/06/21 12:25 97.9 F 85 19 94/59 95 08/06/21 11:00 87 96 08/06/21 10:00 90 103/59 95 08/06/21 09:22 92 17 91/54 92 L 08/06/21 09:00 95 86/52 95 08/06/21 08:15 96 19 80/43 92 L 08/06/21 08:06 20 08/06/21 08:00 99 83/51 08/06/21 07:49 104 H 08/06/21 07:48 101.4 F H 102 H 21 83/51 83 L Intake and Output 08/06/21 08/06/21 08/06/21 06:59 14:59 22:59 Other: Weight 98 kg Results CBC & Chem 7: 08/06/21 08:16 08/06/21 08:16 Labs: Abnormal Lab Results - Last 24 Hours (Table) 08/06/21 08/06/21 08/06/21 Range/Units 08:16 08:16 08:16 RBC 3.32 L (4.30-5.90) m/uL Hgb 9.7 L (13.0-17.5) gm/dL Hct 31.9 L (39.0-53.0) % MCHC 30.4 L (31.0-37.0) g/dL RDW 15.8 H (11.5-15.5) % Plt Count 123 L (150-450) k/uL Neutrophils # 7.8 H (1.3-7.7) k/uL Lymphocytes # 0.8 L (1.0-4.8) k/uL Chloride 97 L (98-107) mmol/L BUN 59 H (9-20) mg/dL Creatinine 9.64 H* (0.66-1.25) mg/dL Glucose 242 H (74-99) mg/dL POC Glucose (mg/dL) (75-99) mg/dL Phosphorus 1.8 L (2.5-4.5) mg/dL Alkaline Phosphatase 155 H (38-126) U/L Albumin 3.2 L (3.5-5.0) g/dL Urine Protein 2+ H (Negative) Urine Glucose (UA) Trace H (Negative) Urine Blood Large H (Negative) Ur Leukocyte Esterase Large H (Negative) Urine RBC 144 H (0-5) /hpf Urine WBC 81 H (0-5) /hpf Amorphous Sediment Rare H (None) /hpf Urine Bacteria Rare H (None) /hpf Hyaline Casts 3 H (0-2) /lpf Urine Mucus Rare H (None) /hpf 08/06/21 Range/Units 12:27 RBC (4.30-5.90) m/uL Hgb (13.0-17.5) gm/dL Hct (39.0-53.0) % MCHC (31.0-37.0) g/dL RDW (11.5-15.5) % Plt Count (150-450) k/uL Neutrophils # (1.3-7.7) k/uL Lymphocytes # (1.0-4.8) k/uL Chloride (98-107) mmol/L BUN (9-20) mg/dL Creatinine (0.66-1.25) mg/dL Glucose (74-99) mg/dL POC Glucose (mg/dL) 216 H (75-99) mg/dL Phosphorus (2.5-4.5) mg/dL Alkaline Phosphatase (38-126) U/L Albumin (3.5-5.0) g/dL Urine Protein (Negative) Urine Glucose (UA) (Negative) Urine Blood (Negative) Ur Leukocyte Esterase (Negative) Urine RBC (0-5) /hpf Urine WBC (0-5) /hpf Amorphous Sediment (None) /hpf Urine Bacteria (None) /hpf Hyaline Casts (0-2) /lpf Urine Mucus (None) /hpf Microbiology - Last 24 Hours (Table) 08/06/21 08:16 Urine Culture - Preliminary Urine,Voided
[2021-08-06 17:11] LABS: Glucose,Whole Blood 215 mg/dL (75-99)
[2021-08-06] MEDS: NON FORMULARY DRUG (Vilazodone Hcl [Viibryd] 40 MG Tablet) PO SCH (18:08)
[2021-08-06] MEDS ORDERED: VANCOMYCIN IV PER PHARMACY 1 EACH MISC MISCELLANE PRN (20:26)
[2021-08-06] MEDS ORDERED: VANCOMYCIN 1,500 MG in SODIUM CHLORIDE 0.9% 250 ML IVPB ONE (21:00)
[2021-08-06 21:14] LABS: Glucose,Whole Blood 249 mg/dL (75-99)
[2021-08-06] MEDS: APIXABAN 5 MG TAB PO SCH (21:15)
[2021-08-06] MEDS: ONDANSETRON 4 MG TAB PO SCH (21:16)
[2021-08-06] MEDS: traZODone HCL 100 MG TAB PO SCH (21:16)
[2021-08-06] MEDS: TIMOLOL 0.5% OPHTH DROPS 5 ML BTL RIGHT EYE SCH (23:34)
[2021-08-07 06:11] LABS: Glucose,Whole Blood 111 mg/dL (75-99)
[2021-08-07] MEDS: oxyCODONE-APAP 10-325MG 1 EACH TAB PO SCH ×4 (06:12→23:55)
[2021-08-07] MEDS: PANTOPRAZOLE 40 MG TABLET PO SCH (06:12)
[2021-08-07] MEDS: METOCLOPRAMIDE 5 MG TAB PO SCH ×3 (06:12→16:40)
[2021-08-07] MEDS: APIXABAN 5 MG TAB PO SCH ×2 (07:38→21:15)
[2021-08-07] MEDS: FUROSEMIDE 80 MG TAB PO SCH ×2 (07:38→16:40)
[2021-08-07] MEDS: ASPIRIN 81 MG PO SCH (07:38)
[2021-08-07] MEDS: MIDODRINE 5 MG TAB PO SCH ×3 (07:38→16:40)
[2021-08-07] MEDS: ONDANSETRON 4 MG TAB PO SCH ×2 (07:39→21:16)
[2021-08-07] MEDS: TIMOLOL 0.5% OPHTH DROPS 5 ML BTL RIGHT EYE SCH ×2 (07:39→21:16)
[2021-08-07] MEDS: PREGABALIN 100 MG CAP PO SCH ×3 (07:39→21:16)
[2021-08-07 08:03] LABS: Calcium 8.8 mg/dL (8.4-10.2); Potassium 4.4 mmol/L (3.5-5.1)
[2021-08-07] MEDS ORDERED: DIALYVITE PO SCH (09:00)
--- NOTE | 2021-08-07 09:27 | P.PN ---
Subjective Progress Note Date: 08/07/21 Feels okay, no chest pain and vomiting. Remains afebrile. Objective - Vital Signs Vital signs: Vital Signs Temp 98.1 F 08/07/21 07:46 Pulse 85 08/07/21 08:00 Resp 18 08/07/21 08:00 BP 101/61 08/07/21 07:46 Pulse Ox 95 08/07/21 07:46 Intake & Output 08/06/21 08/07/21 08/07/21 18:59 06:59 18:59 Intake Total 290 660 Output Total 100 Balance 290 560 Weight 98 kg 99 kg Intake: Intake, IV Titration 50 300 Amount Vancomycin 1,500 mg In 250 Sodium Chloride 0.9% 250 ml @ 125 mls/hr IVPB ONCE ONE Rx#:[id number] ceFAZolin 1,000 mg In 50 50 Sodium Chloride 0.9% 50 ml @ 100 mls/hr IVPB Q8HR [facility] Rx#:[id number] Oral 240 360 Output: Urine 100 - Exam General: non toxic, no distress, appears older than stated age Derm: warm, dry, no erythema around hemodialysis catheter dressing, 2 sutures left intact in right that Head: atraumatic, normocephalic Eyes: EOMI, no lid lag, anicteric sclera, pupils equal round reactive to light ENT: Nose and ears atraumatic, no thrush, no pharyngeal erythema Neck: No thyromegaly, Mouth: no lip lesion, mucus membranes moist Cardiovascular: S1S2 reg, no murmur, positive posterior tibial pulse left lower extremity, no edema, capillary refill less than 2 seconds Lungs: clear to ascultation bilateral, no ronchi, no rales, no wheeze, no ac cessory muscle use Abdominal: soft, nontender to palpation, no guarding, no appreciable organomegaly, normal bowel sounds Ext: no gross muscle atrophy, muscle strength muscle strength 5 out of 5 in bilateral upper extremities, 5 out of 5 in left lower extremity, BKA right lower extremity Neuro: CN II-XI grossly intact, light touch intact all 4 extremities, finger to nose within normal limits, Psych: Alert, oriented, appropriate affect - Labs CBC & Chem 7: 08/06/21 08:16 08/07/21 07:32 Labs: Abnormal Lab Results - Last 24 Hours (Table) 08/06/21 08/06/2108/06/21 Range/Units 08:16 08:16 08:16 RBC 3.32 L (4.30-5.90) m/uL Hgb 9.7 L (13.0-17.5) gm/dL Hct 31.9 L (39.0-53.0) % MCHC 30.4 L (31.0-37.0) g/dL RDW 15.8 H (11.5-15.5) % Plt Count 123 L (150-450) k/uL Neutrophils # 7.8 H (1.3-7.7) k/uL Lymphocytes # 0.8 L (1.0-4.8) k/uL Chloride 97 L (98-107) mmol/L BUN 59 H (9-20) mg/dL Creatinine 9.64 H* (0.66-1.25) mg/dL Glucose 242 H (74-99) mg/dL POC Glucose (mg/dL) (75-99) mg/dL Phosphorus 1.8 L (2.5-4.5) mg/dL Alkaline Phosphatase 155 H (38-126) U/L Albumin 3.2 L (3.5-5.0) g/dL Urine Protein 2+ H (Negative) Urine Glucose (UA) Trace H (Negative) Urine Blood Large H (Negative) Ur Leukocyte Esterase Large H (Negative) Urine RBC 144 H (0-5) /hpf Urine WBC 81 H (0-5) /hpf Amorphous Sediment Rare H (None) /hpf Urine Bacteria Rare H (None) /hpf Hyaline Casts 3 H (0-2) /lpf Urine Mucus Rare H (None) /hpf 08/06/21 08/06/21 08/06/21 Range/Units 12:27 17:07 21:13 RBC (4.30-5.90) m/uL Hgb (13.0-17.5) gm/dL Hct (39.0-53.0) % MCHC (31.0-37.0) g/dL RDW (11.5-15.5) % Plt Count (150-450) k/uL Neutrophils # (1.3-7.7) k/uL Lymphocytes # (1.0-4.8) k/uL Chloride (98-107) mmol/L BUN (9-20) mg/dL Creatinine (0.66-1.25) mg/dL Glucose (74-99) mg/dL POC Glucose (mg/dL) 216 H 215 H 249 H (75-99) mg/dL Phosphorus (2.5-4.5) mg/dL Alkaline Phosphatase (38-126) U/L Albumin (3.5-5.0) g/dL Urine Protein (Negative) Urine Glucose (UA) (Negative) Urine Blood (Negative) Ur Leukocyte Esterase (Negative) Urine RBC (0-5) /hpf Urine WBC (0-5) /hpf Amorphous Sediment (None) /hpf Urine Bacteria (None) /hpf Hyaline Casts (0-2) /lpf Urine Mucus (None) /hpf 08/07/21 08/07/21 Range/Units 06:10 07:32 RBC (4.30-5.90) m/uL Hgb (13.0-17.5) gm/dL Hct (39.0-53.0) % MCHC (31.0-37.0) g/dL RDW (11.5-15.5) % Plt Count (150-450) k/uL Neutrophils # (1.3-7.7) k/uL Lymphocytes # (1.0-4.8) k/uL Chloride (98-107) mmol/L BUN 72 H (9-20) mg/dL Creatinine 11.70 H* (0.66-1.25) mg/dL Glucose 105 H (74-99) mg/dL POC Glucose (mg/dL) 111 H (75-99) mg/dL Phosphorus (2.5-4.5) mg/dL Alkaline Phosphatase (38-126) U/L Albumin (3.5-5.0) g/dL Urine Protein (Negative) Urine Glucose (UA) (Negative) Urine Blood (Negative) Ur Leukocyte Esterase (Negative) Urine RBC (0-5) /hpf Urine WBC (0-5) /hpf Amorphous Sediment (None) /hpf Urine Bacteria (None) /hpf Hyaline Casts (0-2) /lpf Urine Mucus (None) /hpf Microbiology - Last 24 Hours (Table) 08/06/21 08:16 Blood Culture Gram Stain - Preliminary Blood Blood Culture - Preliminary Staphylococcus aureus 08/06/21 08:02 Blood Culture Gram Stain - Preliminary Blood 08/06/21 08:02 Blood Culture - Final Blood 08/06/21 08:16 Blood Culture - Final Blood 08/06/21 08:16 Urine Culture - Preliminary Urine,Voided Assessment and Plan Assessment: Pyrexia in a patient with recent MSSA catheter associated bacteremia -Chest x-rays no signs of pneumonia -Urinalysis is not consistent with urinary tract infection -Coated testing negative -Check for flu and RSV - blood cultures staph aureus, not MRSA -Continue with Cefazolin. Discontinue vancomycin ESRD - consult nephrology - phos low to moderate outpatient therapy for Pravachol DM 1 with isulin pump Neuropathy - continue with trulicity and change from insulin pump to subcu - follow BS - last A1C 5.9 - lyrica Recent Pulmonary Embolism - eliquis Surrogate decision-maker: son CODE STATUS:full DVT prophylaxis: reid Anticipated discharge date: in 1-[address]: home
[2021-08-07] MEDS ORDERED: MIDODRINE 5 MG TAB PO PRN (10:11)
[2021-08-07 11:33] LABS: Glucose,Whole Blood 159 mg/dL (75-99)
[2021-08-07] MEDS: INSULIN ASPART (NovoLOG) 100 UNIT/ML VIAL SQ SCH ×3 (11:54→21:16)
[2021-08-07] MEDS ORDERED: VANCOMYCIN 1,500 MG in SODIUM CHLORIDE 0.9% 250 ML IVPB ONE (12:00)
[2021-08-07] MEDS: CALCIUM ACETATE 667 MG TAB PO SCH (13:59)
--- NOTE | 2021-08-07 15:54 | CONS ---
CONSULTATION REASON FOR CONSULT: End-stage renal disease. HISTORY OF PRESENT ILLNESS: Patient is a 46-year-old male with end-stage renal disease on home hemodialysis. The patient was admitted to the hospital with history of fever and increased weakness. The patient had a temperature of 101.4 degrees Fahrenheit. He has a history of MSSA bacteremia previously in April of 2021 status post placement of new IJ PermCath and patient was maintained on long-term antibiotics post discharge. He denies any significant drainage or pain at the site of the catheter. His blood cultures from yesterday are growing Staph aureus again. There are no other open wounds or sores. PAST MEDICAL HISTORY: End-stage renal disease, CKD mineral bone disorder, history of PE, type 2 diabetes, hyperlipidemia, peripheral vascular disease, history of seizure disorder, history of PE, status post EKOS procedure and cataract status post surgery. PAST SURGICAL HISTORY: Cataract surgery, peritoneal dialysis catheter placement and removal, multiple AV fistulas both arms as well as grafts. History of right BKA, currently with the right IJ PermCath. SOCIAL HISTORY: Negative for smoking, drug abuse or alcohol abuse. MEDICATIONS: Medications at home prior to admission included Dialyvite, Drisdol, insulin, Prilosec, Lasix, Lyrica, Percocet, Reglan, midodrine, Zofran, Eliquis, PhosLo, aspirin, Trulicity, Desyrel, Vilazodone. ALLERGIES: None. REVIEW OF SYSTEMS: As per HPI. Other systems negative. EXAMINATION: Patient is comfortable, awake, not in any acute distress. Blood pressure was 101/61, heart rate 85 per minute. Patient is afebrile. Examination of the heart S1, S2. Examination of the lungs, bilateral breath sounds are heard. Abdomen is soft, nontender. Examination lower extremities shows no significant edema and patient has right BKA. MODEL AND MOLD MAKER PLASTER exam grossly intact. LAB: Show sodium of 142, potassium 4.4, BUN 72, creatinine 11.7. ASSESSMENT: 1. End-stage renal disease, on home hemodialysis. The patient will be dialyzed today. 2. Gram-positive bacteremia with blood cultures growing Staph aureus, previously MSSA with persistent bacteremia and status post removal of IJ PermCath and placement of new catheter in end of April of 2021 with completion of outpatient antibiotics and dialysis. 3. Chronic kidney disease mineral bone disorder. 4. History of massive pulmonary embolism with EKOS procedure, maintained on anticoagulation. 5. Chronic hypotension, maintained on midodrine. 6. Type 2 diabetes. 7. Peripheral vascular disease with right BKA. PLAN: Hemodialysis today. Continue empiric antibiotics. Consult ID. The patient will need an echocardiogram to rule out endocarditis. Thank you for this consultation. We will continue to follow the patient with you during his hospitalization. MMODL / IJN: [id number] /
[2021-08-07 16:28] LABS: Glucose,Whole Blood 271 mg/dL (75-99)
[2021-08-07] MEDS: NON FORMULARY DRUG (Vilazodone Hcl [Viibryd] 40 MG Tablet) PO SCH (16:44)
[2021-08-07 20:15] LABS: Glucose,Whole Blood 255 mg/dL (75-99)
[2021-08-07] MEDS: traZODone HCL 100 MG TAB PO SCH (21:18)
--- NOTE | 2021-08-07 22:46 | P.CONS ---
History of Present Illness - Reason for Consult Consult date: 08/07/21 bacteremia Requesting physician: Jinny Cope - Chief Complaint Fever and weakness x 1 day - History of Present Illness History of present illness : Patient is a 46-year-old male with a past medical history significant for end-stage renal disease on hemodialysis to the right chest wall permacatheter patient undergo dialysis Friday patient also have a history of MSSA bacteremia secondary to the dialysis catheter which was subsequently replaced apparently the patient was maintained on long-term IV antibiotic therapy however the patient not very clear on when exactly he completed his antibiotic therapy patient is presenting to the [facility] ER yesterday morning for evaluation of fever and weakness in this patient started having symptoms on Friday and progressively getting worse and felt weak patient denies having any headache or URI symptoms, patient denies having any chest pain shortness of breath or cough nausea no vomiting no abdo linda pain or diarrhea on presentation to the hospital the patient did have a fever of 101.4 degree form height patient was tachycardic slightly hypoxic requiring supplemental oxygen patient did have a normal white count with a left shift creatinine was 111.70 urine has been positive pisano PCR was negative patient did have a chest x-ray likely nodular appearing density left upper lobe no patient was started on vancomycin blood culture to continue with positive emesis antibiotic has been adjusted to cefazolin infectious disease was consulted for further management of antibiotic therapy Review of system: CONSTITUTIONAL: Positive for weakness along with the fever. EYES: No complaint. ENT: No complaint. RESPIRATORY: As per history of present illness. CARDIOVASCULAR: No complaint. GENITOURINARY: No complaint. GASTROINTESTINAL: No complaint. MUSCULOSKELETAL: No complaint. INTEGUMENTARY: No complaint. PSYCHOLOGIC: No complaint. ENDOCRINE: No complaint. NEUROLOGIC: No complaint. Past medical history : Reviewed, documented below Past surgical history : Reviewed, documented below Social history: Reviewed, documented below Medications: Reviewed, as documented below EXAMINATION: Vital sigans= Reviewed and documented below GENERAL DESCRIPTION: Middle-aged male lying in bed, no distress. No tachypnea or accessory muscle of respiration use. HEENT: Shows Pallor , no scleral icterus. Oral mucous membrane is dry. NECK: Trachea central, no thyromegaly. LUNGS: Unlabored breathing. Decreased breath sound at the base. No wheeze or crackle. HEART: S1, S2, regular rate and rhythm. ABDOMEN: Soft, no tenderness , guarding or rigidity EXTREMITIES: No edema of feet. SKIN: No rash, no masses palpable. NEUROLOGICAL: The patient is awake, alert, oriented x3, mood and affect normal. LABS AND RADIOLOGY: Reviewed results see below Assessment : Patient presented to hospital with sepsis in this patient did have fever tachycardia now with evidence of gram-positive bacteremia MSSA in this patient who did have a similar episode of bacteremia end of April 2021 that was related to Port-A-Cath with subsequent discontinued and apparently the patient has been on a prolonged course of suppressive therapy now with recurrence of bacteremia started on Friday after he completed his dialysis [facility] suspicious for dialysis catheter infection however in view of recurrent episode underlying endovascular stenosis to rule out Plan: 1-blood cultures will be repeated document clearance of his bacteremia 2-cefazolin dose administered by the pharmacist to daily 3-check a CRP and procalcitonin 4-obtain an echocardiogram which is nondiagnostic may need ANNABELLE, discussed with cushion gum applicator We will follow on clinical condition and cultures to further adjust medication if needed Thank you for this consultation we will follow the patient along with you Past Medical History Past Medical History: Diabetes Mellitus, Dialysis, GERD/Reflux, Hyperlipidemia, Pulmonary Embolus (PE), Renal Disease, Seizure Disorder, Syncope Additional Past Medical History / Comment(s): constipation, anemia, peripheral vascular disease, diabetes mellitus on insulin pump for blood sugar control, previous history of massive pulmonary embolism - ECOS, hyperlipidemia, HD at home History of Any Multi-Drug Resistant Organisms: None Reported Additional Past Surgical History / Comment(s): tom cataract, peritoneal dialysis catheter rt side, ECOS 03/19/21, HERO HD site left chest, right forearm fistula - no longer active, left arm fistula - no longer active, right chest HD temp. HD cath., RBKA Past Anesthesia/Blood Transfusion Reactions: No Reported Reaction Past Psychological History: Anxiety, Depression Smoking Status: Never smoker Past Alcohol Use History: None Reported Past Drug Use History: None Reported - Past Family History Mother Family Medical History: Cancer Father Family Medical History: Dementia Medications and Allergies Home Medications Medication Instructions Recorded Confirmed Type Dialyvite 1 tab PO DAILY 01/31/17 08/06/21 History Ergocalciferol [Vitamin D2 50,000 unit PO Q14D 01/31/17 08/06/21 History (DRISDOL)] INSULIN LISPRO (For Pump) [humaLOG 0.01 units SQ-PUMP CONTINUOUS 01/31/17 08/06/21 History (For Pump)] Omeprazole [PriLOSEC] 20 mg PO BID 01/31/17 08/06/21 History Timolol [Betimol 0.5% Ophth Soln] 1 drop RIGHT EYE BID 01/31/17 08/06/21 History Furosemide [Lasix] 80 mg PO BID 10/01/20 08/06/21 History Pregabalin [Lyrica] 200 mg PO TID 10/01/20 08/06/21 History oxyCODONE-APAP 10-325MG [Percocet 1 tab PO Q6H 10/01/20 08/06/21 History 10-325 mg] Metoclopramide [Reglan] 5 mg PO AC-TID 03/16/21 08/06/21 History Midodrine HCl [ProAmatine] 10 mg PO TID 03/16/21 08/06/21 History Ondansetron HCl [Zofran] 4 mg PO BID 03/16/21 08/06/21 History Apixaban [Eliquis] 5 mg PO BID 05/14/21 08/06/21 History Calcium Acetate [Phoslo] 667 mg PO AC-LUNCH 05/14/21 08/06/21 History Aspirin EC [Ecotrin Low Dose] 81 mg PO DAILY 08/06/21 08/06/21 History Dulaglutide [Trulicity] 1.5 mg SQ WE 08/06/21 08/06/21 History Heparin 1000 Units/Ml 6,400 units SQ MOTUTHFRSA 08/06/21 08/06/21 History Sennosides/Docusate Sodium [Senna 1 tab PO BID PRN 08/06/21 08/06/21 History Plus 8.6-50 mg Tablet] Vilazodone HCl [Viibryd] 40 mg PO PC-SUPPER 08/06/21 08/06/21 History traZODone HCL [Desyrel] 100 mg PO HS 08/06/21 08/06/21 History Allergies Allergy/AdvReac Type Severity Reaction Status Date / Time No Known Allergies Allergy Verified 08/06/21 09:25 Physical Exam Vitals: Vital Signs Temp Pulse Resp BP Pulse Ox 08/07/21 16:00 98.5 F 86 16 100/58 91 L 08/07/21 14:35 97.8 F 31 H 103/56 08/07/21 14:00 88 18 08/07/21 11:56 97.8 F 88 18 148/83 92 L 08/07/21 08:00 85 18 08/07/21 07:46 98.1 F 85 18 101/61 95 08/07/21 04:00 99.2 F 86 16 104/59 93 L 08/06/21 23:52 99.3 F 99 18 102/57 93 L Intake and Output 08/07/21 08/07/21 08/07/21 06:59 14:59 22:59 Intake Total 660 580 Output Total 900 Balance 660 -320 Intake: Intake, IV Titration 300 Amount Vancomycin 1,500 mg In 250 Sodium Chloride 0.9% 250 ml @ 125 mls/hr IVPB ONCE ONE Rx#:[id number] ceFAZolin 1,000 mg In 50 Sodium Chloride 0.9% 50 ml @ 100 mls/hr IVPB Q8HR [facility] Rx#:[id number] Oral 360 180 Hemodialysis 400 Output: Hemodialysis 900 Other: # Voids 0 Weight 99 kg Results CBC & Chem 7: 08/06/21 08:16 08/07/21 07:32 Labs: Abnormal Lab Results - Last 24 Hours (Table) 08/07/21 08/07/21 08/07/21 Range/Units 06:10 07:32 11:31 BUN 72 H (9-20) mg/dL Creatinine 11.70 H* (0.66-1.25) mg/dL Glucose 105 H (74-99) mg/dL POC Glucose (mg/dL) 111 H 159 H (75-99) mg/dL 08/07/21 08/07/21 Range/Units 16:27 20:14 BUN (9-20) mg/dL Creatinine (0.66-1.25) mg/dL Glucose (74-99) mg/dL POC Glucose (mg/dL) 271 H 255 H (75-99) mg/dL Microbiology - Last 24 Hours (Table) 08/06/21 08:16 Urine Culture - Final Urine,Voided 08/06/21 08:16 Blood Culture Gram Stain - Preliminary Blood Blood Culture - Preliminary Staphylococcus aureus 08/06/21 08:02 Blood Culture Gram Stain - Preliminary Blood 08/06/21 08:02 Blood Culture - Final Blood 08/06/21 08:16 Blood Culture - Final Blood
[2021-08-08 06:35] LABS: Glucose,Whole Blood 390 mg/dL (75-99)
[2021-08-08] MEDS: oxyCODONE-APAP 10-325MG 1 EACH TAB PO SCH ×4 (06:48→17:57)
[2021-08-08] MEDS: PANTOPRAZOLE 40 MG TABLET PO SCH (06:48)
[2021-08-08] MEDS: METOCLOPRAMIDE 5 MG TAB PO SCH ×3 (06:48→17:56)
[2021-08-08] MEDS: MIDODRINE 5 MG TAB PO SCH ×3 (06:48→17:56)
[2021-08-08] MEDS: INSULIN ASPART (NovoLOG) 100 UNIT/ML VIAL SQ SCH ×4 (06:49→21:38)
--- NOTE | 2021-08-08 09:30 | P.PN ---
Subjective Progress Note Date: 08/08/21 Sleepy today and harder to wake up. He opens his eyes. No chest pain no abdominal pain. Remains afebrile. Objective - Vital Signs Vital signs: Vital Signs Temp 97.6 F 08/08/21 09:03 Pulse 91 08/08/21 09:03 Resp 17 08/08/21 04:00 BP 117/58 08/08/21 09:03 Pulse Ox 94 L 08/08/21 09:03 Intake & Output 08/07/21 08/08/21 08/08/21 18:59 06:59 18:59 Intake Total 580 470 Output Total 900 Balance -320 470 Weight 97.5 kg Intake: Intake, IV Titration 150 Amount ceFAZolin 1,000 mg In 150 Sodium Chloride 0.9% 50 ml @ 100 mls/hr IVPB Q24H [facility] Rx#:[id number] Oral 180 320 Hemodialysis 400 Output: Hemodialysis 900 Other: # Voids 0 - Exam General: Sleeping harder to wake up Derm: warm, dry, no erythema around hemodialysis catheter dressing, 2 sutures left intact in right that Head: atraumatic, normocephalic Eyes: EOMI, no lid lag, anicteric sclera, pupils equal round reactive to light ENT: Nose and ears atraumatic, no thrush, no pharyngeal erythema Neck: No thyromegaly, Mouth: no lip lesion, mucus membranes moist Cardiovascular: S1S2 reg, no murmur, positive posterior tibial pulse left lower extremity, no edema, capillary refill less than 2 seconds Lungs: clear to ascultation bilateral, no ronchi, no rales, no wheeze, no accessory muscle use Abdominal: soft, nontender to palpation, no guarding, no appreciable organomegaly, normal bowel sounds Ext: no gross muscle atrophy, muscle strength muscle strength 5 out of 5 in bilateral upper extremities, 5 out of 5 in left lower extremity, BKA right lower extremity Neuro: CN II-XI grossly intact, light touch intact all 4 extremities, finger to nose within normal limits, Psych: Alert, oriented, appropriate affect - Labs CBC & Chem 7: 08/06/21 08:16 08/07/21 07:32 Labs: Abnormal Lab Results - Last 24 Hours (Table) 08/07/21 08/07/21 08/07/21 Range/Units 11:31 16:27 20:14 POC Glucose (mg/dL) 159 H 271 H 255 H (75-99) mg/dL 08/08/21 Range/Units 06:34 POC Glucose (mg/dL) 390 H (75-99) mg/dL Microbiology - Last 24 Hours (Table) 08/06/21 08:16 Urine Culture - Final Urine,Voided Assessment and Plan Assessment: Pyrexia in a patient with recent MSSA catheter associated bacteremia -Chest x-rays no signs of pneumonia -Urinalysis is not consistent with urinary tract infection -Coated testing negative -Check for flu and RSV - blood cultures staph aureus, not MRSA -Continue with Cefazolin. Discontinue vancomycin -Appreciate infectious disease input. Possibly needing PE ESRD - consult nephrology - phos low to moderate outpatient therapy for Pravachol DM 1 with isulin pump Neuropathy - continue with trulicity and change from insulin pump to subcu - follow BS - last A1C 5.9 - lyrica Recent Pulmonary Embolism - eliquis Decreased level of consciousness with metabolic encephalopathy Multifactorial, obtain brain CT. Consult neurology. Continue to treat underlying condition. Surrogate decision-maker: son CODE STATUS:full DVT prophylaxis: eliquis Anticipated discharge date: Pending clinical progression Anticipated discharge place: home
[2021-08-08 09:45] LABS: Basophils % (A) 0 %; Eosinophils # (A) 0.1 k/uL (0-0.7); Eosinophils % (A) 1 %; HCT 33.6 % (39.0-53.0); HGB 9.8 gm/dL (13.0-17.5); Hypochromasia Marked; Lymphocytes # (A) 1.1 k/uL (1.0-4.8); Lymphocytes % (A) 7 %; MCH 29.4 pg (25.0-35.0); Macrocytosis Slight; Mean Platelet Volume 9.7; Monocytes # (A) 0.5 k/uL (0-1.0); Monocytes % (A) 4 %; Neutrophils # (A) 12.7 k/uL (1.3-7.7); Neutrophils % (A) 85 %; Platelet Count 133 k/uL (150-450); RBC 3.32 m/uL (4.30-5.90); RDW 15.8 % (11.5-15.5); WBC 14.9 k/uL (3.8-10.6)
[2021-08-08 10:02] LABS: MCV 101.3 fL (80.0-100.0)
[2021-08-08 10:38] LABS: Albumin 3.7 g/dL (3.5-5.0); Calcium 8.9 mg/dL (8.4-10.2); Potassium 5.6 mmol/L (3.5-5.1); Total Bilirubin 0.8 mg/dL (0.2-1.3); Total Protein 7.3 g/dL (6.3-8.2)
--- NOTE | 2021-08-08 10:52 | CT ---
EXAMINATION TYPE: CT brain wo con DATE OF EXAM: 08/08/2021 COMPARISON: 04/12/2021 HISTORY: Altered mental status. CT DLP: 1608.4 mGycm. Automated Exposure Control for Dose Reduction was Utilized. TECHNIQUE: CT scan of the head is performed without contrast. FINDINGS: Exam limited by artifact. There is no acute intracranial hemorrhage, mass effect, or midline shift identified. There is mild ge neralized degenerative change of the greater frontal lobe component. Artifact somewhat limits the exa m. There is an area of low attenuation involving the left cerebellar hemisphere. Sinuses are clear. O rbits are symmetric. Intracranial atherosclerotic changes noted. IMPRESSION: 1. No acute hemorrhage or mass effect. There is an area of low attenuation involving the left posteri or cerebellar hemisphere. Recent or acute ischemia not excluded recommend follow-up MRI with diffusio n imaging.
[2021-08-08 11:46] LABS: Glucose,Whole Blood 304 mg/dL (75-99)
--- NOTE | 2021-08-08 12:21 | ECHOF ---
Referral Reason:bacteremia , Endocarditis MEASUREMENTS -------- HEIGHT: 154.9 cm WEIGHT: 97.1 kg BP: IVSd: 1.1 cm (0.6 - 1.1) LVIDd: 3.6 cm (3.9 - 5.3) LVPWd: 1.2 cm (0.6 - 1.1) EDV(Teich): 54 ml IVSs: 1.8 cm LVIDs: 1.7 cm LVPWs: 1.8 cm %IVS Thck: 63 % ESV(Teich): 8 ml EF(Teich): 86 % %FS: 54 % SV(Teich): 47 ml RVIDd: 3.2 cm (< 3.3) Ao Diam: 2.9 cm (2.0 - 3.7) LA Diam: 3.0 cm (2.7 - 3.8) AV Cusp: 2.0 cm (1.5 - 2.6) EPSS: 0.8 cm MV E Prosper: 0.84 m/s MV DecT: 167 ms MV Dec [place]: 5.0 m/s MV A Prosper: 0.75 m/s MV E/A Ratio: 1.13 MV PHT: 49 ms MR Vmax: 0.93 m/s MR maxP.50 mmHg AV Vmax: 0.90 m/s AV maxP.21 mmHg TR Vmax: 3.57 m/s TR maxP.93 mmHg RAP: 5.00 mmHg RVSP: 55.93 mmHg MV EF SLOPE: 80.87 mm/s (70 - 150) MV EXCURSION: 13.19 mm (> 18.000) FINDINGS -------- This was a technically difficult study with suboptimal views. The left ventricular size is normal. There is mild concentric left ventricular hypertrophy. Overa ll left ventricular systolic function is normal with, an EF between 55 - 60 %. There is paradoxical /dysynergic septal motion consistent with right ventricular volume overload and/or elevated right kj tricular end-diastolic pressure. The right ventricle is mildly enlarged. The left atrial size is normal. The right atrial size is normal. Lumason used The aortic valve was not well visualized. The mitral valve was not well visualized. Mild mitral regurgitation is present. The tricuspid valve was not well visualized. Moderate tricuspid regurgitation present. There is m oderate pulmonary hypertension. The pulmonic valve was not well visualized. The aortic root size is normal. IVC Not well visulized. There is no pericardial effusion. CONCLUSIONS -------- 1. The left ventricular size is normal. 2. There is mild concentric left ventricular hypertrophy. 3. Overall left ventricular systolic function is normal with, an EF between 55 - 60 %. 4. There is paradoxical/dysynergic septal motion consistent with right ventricular volume overload an d/or elevated right ventricular end-diastolic pressure. 5. The right ventricle is mildly enlarged. 6. Mild mitral regurgitation is present. 7. Moderate tricuspid regurgitation present. 8. There is moderate pulmonary hypertension. 9. There is no pericardial effusion. RESEARCH & ANALYTICS MANAGER: Pao Warner RDCS
[2021-08-08 12:30] LABS: C Reactive Protein 25.4 mg/dL (<1.0)
[2021-08-08] MEDS: ASPIRIN 81 MG PO SCH (12:36)
[2021-08-08] MEDS: NON FORMULARY DRUG (Dulaglutide [Trulicity] 1.5 MG/0.5 ML Each) SQ SCH (12:36)
[2021-08-08] MEDS: APIXABAN 5 MG TAB PO SCH ×2 (12:36→20:23)
[2021-08-08] MEDS: CALCIUM ACETATE 667 MG TAB PO SCH (12:37)
[2021-08-08] MEDS: FUROSEMIDE 80 MG TAB PO SCH ×2 (12:37→17:56)
[2021-08-08] MEDS: PREGABALIN 100 MG CAP PO SCH ×3 (12:37→20:24)
[2021-08-08] MEDS: ONDANSETRON 4 MG TAB PO SCH ×2 (12:37→20:24)
[2021-08-08] MEDS: TIMOLOL 0.5% OPHTH DROPS 5 ML BTL RIGHT EYE SCH ×2 (12:50→21:38)
[2021-08-08 12:57] LABS: ABG Base Excess -0.5 mmol/L; ABG HCO3 27 mmol/L (21-25); ABG Oxygen Saturation 80.4 % (94-97); ABG PCO2 61 mmHg (35-45); ABG PH 7.25 (7.35-7.45); ABG TCO2 29 mmol/L (19-24); Allen Test Performed? Yes
[2021-08-08 13:02] LABS: ABG PO2 53 mmHg (83-108)
[2021-08-08 13:33] LABS: Erythrocyte Sedimentation Rate 110 mm/hr (0-15)
--- NOTE | 2021-08-08 15:34 | P.CNNES ---
History of Present Illness Consult date: 08/08/21 Requesting physician: Kunal Adkins Reason for Consult: Decreased level of consciousness History of Present Illness: Patient is a 46-year-old male, with history of ESRD on hemodialysis came to the hospital by ambulance 2 days ago on 08/06/2021 at 7:45 AM for dizziness and unsteadiness, which he felt was related to his ear infection. Patient's blood sugar was 295. Patient in the hospital was noted to have altered mental status. He was very lethargic. Neurology was consulted for altered mental status. Patient at present not able to provide any history. He is extremely encephalopathic, having significant myoclonic jerks of upper extremities. Patient's blood test on arrival with WBC 9.2 hemoglobin 9.7, with elevated MCV 101.3, platelets 123. Electrolytes are normal, BUN 59, creatinine 9.64. Hepatic panel is normal, UA with large about of leukocyte Estrace, 81 WBC, rare bacteria. Lomeli virus PCR negative. Influenza screen negative. RSV PCR negative. Patient's renal functions as of yesterday was BUN 72, creatinine 11.7, and today is 81 and 13.8 respectively. Patient's last B12 was 451 on 04/13/2021, methylmalonic acid highly elevated 1.72, folate is normal. Chest x- ray showed vague nodular appearing density left upper lobe prior exam could be related to superimposed structures. Pulmonary nodule not excluded. Early infiltrate in the differential diagnosis. EKG shows sinus tachycardia. Computed tomography scan of the head showed no acute hemorrhage or mass effect. There is an area of low attenuation involving the left posterior cerebellar hemisphere. Recent or acute ischemia not excluded, recommend follow-up MRI with diffusion imaging. On my review, it appears more like streak artifact rather than acute process. Review of Systems ROS unobtainable: due to mental status Past Medical History Past Medical History: Diabetes Mellitus, Dialysis, GERD/Reflux, Hyperlipidemia, Pulmonary Embolus (PE), Renal Disease, Seizure Disorder, Syncope Additional Past Medical History / Comment(s): constipation, anemia, peripheral vascular disease, diabetes mellitus on insulin pump for blood sugar control, previous history of massive pulmonary embolism - ECOS, hyperlipidemia, HD at [facility] History of Any Multi-Drug Resistant Organisms: None Reported Additional Past Surgical History / Comment(s): tom cataract, peritoneal dialysis catheter rt side, ECOS 03/19/21, [facility] HD site left chest, right forearm fistula - no longer active, left arm fistula - no longer active, right chest HD temp. HD cath., RBKA Past Anesthesia/Blood Transfusion Reactions: No Reported Reaction Past Psychological History: Anxiety, Depression Smoking Status: Never smoker Past Alcohol Use History: None Reported Past Drug Use History: None Reported - Past Family History Mother Family Medical History: Cancer Father Family Medical History: Dementia Medications and Allergies Home Medications Medication Instructions Recorded Confirmed Type Dialyvite 1 tab PO DAILY 01/31/17 08/06/21 History Ergocalciferol [Vitamin D2 50,000 unit PO Q14D 01/31/17 08/06/21 History (DRISDOL)] INSULIN LISPRO (For Pump) [humaLOG 0.01 units SQ-PUMP CONTINUOUS 01/31/17 08/06/21 History (For Pump)] Omeprazole [PriLOSEC] 20 mg PO BID 01/31/17 08/06/21 History Timolol [Betimol 0.5% Ophth Soln] 1 drop RIGHT EYE BID 01/31/17 08/06/21 History Furosemide [Lasix] 80 mg PO BID 10/01/20 08/06/21 History Pregabalin [Lyrica] 200 mg PO TID 10/01/20 08/06/21 History oxyCODONE-APAP 10-325MG [Percocet 1 tab PO Q6H 10/01/20 08/06/21 History 10-325 mg] Metoclopramide [Reglan] 5 mg PO AC-TID 03/16/21 08/06/21 History Midodrine HCl [ProAmatine] 10 mg PO TID 03/16/21 08/06/21 History Ondansetron HCl [Zofran] 4 mg PO BID 03/16/21 08/06/21 History Apixaban [Eliquis] 5 mg PO BID 05/14/21 08/06/21 History Calcium Acetate [Phoslo] 667 mg PO AC-LUNCH 05/14/21 08/06/21 History Aspirin EC [Ecotrin Low Dose] 81 mg PO DAILY 08/06/21 08/06/21 History Dulaglutide [Trulicity] 1.5 mg SQ WE 08/06/21 08/06/21 History Heparin 1000 Units/Ml 6,400 units SQ MOTUTHFRSA 08/06/21 08/06/21 History Sennosides/Docusate Sodium [Senna 1 tab PO BID PRN 08/06/21 08/06/21 History Plus 8.6-50 mg Tablet] Vilazodone HCl [Viibryd] 40 mg PO PC-SUPPER 08/06/21 08/06/21 History traZODone HCL [Desyrel] 100 mg PO HS 08/06/21 08/06/21 History Allergies Allergy/AdvReac Type Severity Reaction Status Date / Time No Known Allergies Allergy Verified 08/06/21 09:25 Physical Examination - Vital Signs Vital Signs: Vital Signs Temp Pulse Resp BP Pulse Ox 08/08/21 09:03 97.6 F 91 117/58 94 L 08/08/21 04:00 98.1 F 91 17 121/57 90 L 08/08/21 02:00 89 19 08/08/21 00:00 98.9 F 89 19 118/56 90 L 08/07/21 20:00 98.3 F 90 18 115/60 90 L 08/07/21 16:00 98.5 F 86 16 100/58 91 L 08/07/21 14:35 97.8 F 31 H 103/56 08/07/21 14:00 88 18 08/07/21 11:56 97.8 F 88 18 148/83 92 L Intake and Output 08/07/21 08/08/21 08/08/21 22:59 06:59 14:59 Intake Total 300 170 Balance 300 170 Intake: Intake, IV Titration 100 50 Amount ceFAZolin 1,000 mg In 100 50 Sodium Chloride 0.9% 50 ml @ 100 mls/hr IVPB Q24H [facility] Rx#:[id number] Oral 200 120 Other: Weight 97.5 kg On examination patient is a middle aged male, who appears obtunded, significantly encephalopathic, having sporadic myoclonic jerks of the upper body. Patient is obtunded. Speech and language functions cannot be assessed due to mental status. Attention, concentration is severely decreased, and fund of knowledge cannot be assessed. On cranial examination, pupils are round and reacting to light, visual martinez cannot be checked, extraocular muscles appears to have some restriction on either side, but patient was not cooperating. Oculocephalics absent. Face is symmetric, patient did not protrude his tongue. Hearing appears decreased. Shoulder shrug, palate and facial sensation cannot be checked. Muscle strength testing cannot be assessed because of patient's mental status. Tone is equal bilaterally. Patient is having significant myoclonic jerks of upper body particularly when the arms are elevated. Patient has right distal leg amputation from midcalf. Deep tendon reflexes are absent, plantars are flat. Sensory to touch cannot be assessed Cerebellar function and gait cannot be assessed. On general examination, there is no carotid bruit or murmur, S1-S2 audible. Abdomen is soft nontender. Chest is clear. No edema. Patient has right unprotected distal lower leg from midcalf down. Results - Laboratory Findings CBC and BMP: 08/08/21 09:08 08/08/21 09:25 Abnormal Lab Findings: Abnormal Labs 08/06/21 08/06/21 08/06/21 08:16 08:16 08:16 WBC RBC 3.32 L Hgb 9.7 L Hct 31.9 L MCV MCHC 30.4 L RDW 15.8 H Plt Count 123 L Neutrophils # 7.8 H Lymphocytes # 0.8 L Sodium Potassium Chloride 97 L Carbon Dioxide BUN 59 H Creatinine 9.64 H* Glucose 242 H POC Glucose (mg/dL) Phosphorus 1.8 L Alkaline Phosphatase 155 H Albumin 3.2 L Urine Protein 2+ H Urine Glucose (UA) Trace H Urine Blood Large H Ur Leukocyte Esterase Large H Urine RBC 144 H Urine WBC 81 H Amorphous Sediment Rare H Urine Bacteria Rare H Hyaline Casts 3 H Urine Mucus Rare H 08/06/21 08/06/21 08/06/21 12:27 17:07 21:13 WBC RBC Hgb Hct MCV MCHC RDW Plt Count Neutrophils # Lymphocytes # Sodium Potassium Chloride Carbon Dioxide BUN Creatinine Glucose POC Glucose (mg/dL) 216 H 215 H 249 H Phosphorus Alkaline Phosphatase Albumin Urine Protein Urine Glucose (UA) Urine Blood Ur Leukocyte Esterase Urine RBC Urine WBC Amorphous Sediment Urine Bacteria Hyaline Casts Urine Mucus 08/07/21 08/07/21 08/07/21 06:10 07:32 11:31 WBC RBC Hgb Hct MCV MCHC RDW Plt Count Neutrophils # Lymphocytes # Sodium Potassium Chloride Carbon Dioxide BUN 72 H Creatinine 11.70 H* Glucose 105 H POC Glucose (mg/dL) 111 H 159 H Phosphorus Alkaline Phosphatase Albumin Urine Protein Urine Glucose (UA) Urine Blood Ur Leukocyte Esterase Urine RBC Urine WBC Amorphous Sediment Urine Bacteria Hyaline Casts Urine Mucus 08/07/21 08/07/21 08/08/21 16:27 20:14 06:34 WBC RBC Hgb Hct MCV MCHC RDW Plt Count Neutrophils # Lymphocytes # Sodium Potassium Chloride Carbon Dioxide BUN Creatinine Glucose POC Glucose (mg/dL) 271 H 255 H 390 H Phosphorus Alkaline Phosphatase Albumin Urine Protein Urine Glucose (UA) Urine Blood Ur Leukocyte Esterase Urine RBC Urine WBC Amorphous Sediment Urine Bacteria Hyaline Casts Urine Mucus 08/08/21 08/08/21 09:08 09:25 WBC 14.9 H RBC 3.32 L Hgb 9.8 L Hct 33.6 L MCV 101.3 H D MCHC 29.0 L RDW 15.8 H Plt Count 133 L Neutrophils # 12.7 H Lymphocytes # Sodium 136 L Potassium 5.6 H Chloride 94 L Carbon Dioxide 16 L BUN 81 H Creatinine 13.80 H* Glucose 365 H POC Glucose (mg/dL) Phosphorus Alkaline Phosphatase 234 H Albumin Urine Protein Urine Glucose (UA) Urine Blood Ur Leukocyte Esterase Urine RBC Urine WBC Amorphous Sediment Urine Bacteria Hyaline Casts Urine Mucus Assessment and Plan Assessment: * Altered mental status, likely due to toxic metabolic encephalopathy. Probably multifactorial, as mentioned below. Patient has myoclonic jerks consistent with metabolic dysfunction. * End-stage renal disease on hemodialysis. Patient's uremia seems to be getting worse. * Sepsis with evidence of gram-positive bacteremia MSSA, ID following. Patient on cefazolin. * Hypoxemia * Diabetes type 1 with insulin pump. Diabetes poorly controlled. * Recent pulmonary embolism. * History of distal right lower leg amputation. Plan: * Stat ABG was performed. Patient's pH is 7.25, pCO2 61, pO2 53 and saturation 80.4 on 32% FiO2. Suggest pulmonary consultation. * Patient's uremia seems to be getting worse. Nephrology on board. * Patient also had sepsis, ID on board. * We will check EEG. * 2-D echo revealed normal left ventricular size. Mild concentric LVH. EF is between 55-60%. There is paradoxical/this synergetic septal motion consistent with right ventricular volume overload and or elevated right ventricular end- diastolic pressure. Moderate TR. * Carotid Doppler has been ordered, results pending. * Neurology will follow. * Thank you for the consult.
--- NOTE | 2021-08-08 15:42 | US ---
EXAMINATION TYPE: US carotid duplex BILAT DATE OF EXAM: 08/08/2021 COMPARISON: NONE CLINICAL HISTORY: cva. EXAM MEASUREMENTS: RIGHT: Peak Systolic Velocity (PSV) cm/sec ----- Right CCA: 51.6 ----- Right ICA: 91.9 ----- Right ECA: 95.1 ICA/CCA ratio: 1.8 RIGHT: End Diastole cm/sec ----- Right CCA: 13.1 ----- Right ICA: 17.6 ----- Right ECA: 16.0 LEFT: Peak Systolic Velocity (PSV) cm/sec ----- Left CCA: 87.3 ----- Left ICA: 75.8 ----- Left ECA: 88.7 ICA/CCA ratio: 0.9 LEFT: End Diastole cm/sec ----- Left CCA: 22.0 ----- Left ICA: 30.5 ----- Left ECA: 9.5 VERTEBRALS (direction of flow): Right Vertebral: Antegrade Left Vertebral: Antegrade Rhythm: Normal Very difficult patient. large body habitus, stitches on right side of neck, patient involuntary twitc pancho, unable to lay flat. IMPRESSION: No evidence for hemodynamically significant stenosis at this time. Criteria for Assigning % of Stenosis / Diameter reduction (Estimation based on the indirect measurements of the internal carotid artery velocities (ICA PSV). 1. Normal (no stenosis)=ICA PSV < 125 cm/s: ratio < 2.0: ICA EDV<40 cm/s. 2. Less than 50% stenosis=ICA PSV < 125 cm/s: ratio < 2.0: ICA EDV<40 cm/s. 3. 50 to 69% stenosis=ICA PSV of 125 to 230 cm/s: ration 2.0 ? 4.0: ICA EDV 40-100 cm/s. 4. Greater than 70% stenosis to near occlusion= ICA PSV > 230 cm/s: ratio > 4.0: ICA EDV > 100 cm/s. 5. Near occlusion= ICA PSV velocities may be low or undetectable: variable ratio and ICA EDV. 6. Total occlusion=unable to detect flow.
[2021-08-08 17:11] LABS: Glucose,Whole Blood 224 mg/dL (75-99)
--- NOTE | 2021-08-08 17:36 | PN ---
PROGRESS NOTE DATE OF SERVICE: 08/08/2021 REASON FOR FOLLOWUP: MSSA bacteremia. INTERVAL HISTORY: The patient is afebrile. The patient is currently breathing comfortably. No chest pain, shortness of breath or cough. No abdominal pain or diarrhea. PHYSICAL EXAMINATION: Blood pressure 125/62 with a pulse of 69, temperature 97.8. He is 93% on 3 L nasal cannula. General description is a middle-aged male lying in bed in no distress. RESPIRATORY SYSTEM: Unlabored breathing. Decreased breath sounds at the bases. No wheeze. HEART: S1, S2. Regular rate and rhythm. ABDOMEN: Soft. No tenderness. EXTREMITIES: No edema of the feet. LABS: Hemoglobin 9.1, white count 14.9. Blood cultures from yesterday so far pending. DIAGNOSTIC IMPRESSION AND PLAN: Patient with recurrent MSSA bacteremia concerning for an intravascular source. Echo did not show any significant vegetation. May benefit from a ANNABELLE. Continue cefazolin. Daily blood culture to document clearance of his bacteremia. Monitor clinical course closely. MMODL / IJN: [id number] /
[2021-08-08] MEDS: DIALYVITE PO SCH (17:56)
[2021-08-08] MEDS: NON FORMULARY DRUG (Vilazodone Hcl [Viibryd] 40 MG Tablet) PO SCH (17:57)
--- NOTE | 2021-08-08 20:06 | PN ---
PROGRESS NOTE Patient is seen for followup for end-stage renal disease. This morning patient was lethargic. He was being taken down for a CT scan. His two blood cultures on August 06 are growing Staph aureus; susceptibility is pending. It was MSSA previously. Patient's blood pressure remains low, with systolic around 100 to 115 mmHg systolic. On examination, heart rate 75 per minute. Patient is sleepy but arousable. He is lethargic. EXAMINATION OF THE HEART: S1 and S2. EXAMINATION OF LUNGS: Bilateral breath sounds are heard. Abdomen is soft, obese. Examination of lower extremities shows no significant edema. 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 He is arousable. He is moving all 4 extremities. Labs show sodium 136, potassium 5.6, chloride 94. CO2 is 16, BUN 81, creatinine 13. ASSESSMENT: 1. End-stage renal disease, on home hemodialysis. Patient was dialyzed yesterday. We will dialyze him again tomorrow. 2. Staphylococcus aureus bacteremia with previous history of MSSA bacteremia, maintained on vancomycin. ID has been consulted. Concern for endocarditis, as patient was treated with outpatient antibiotics for more than 6 weeks. 3. Hypotension with chronic hypotension, maintained on midodrine. 4. Mild hyperkalemia. Expect improvement with hemodialysis tomorrow. 5. Chronic kidney disease mineral bone disorder, maintained on PhosLo. PLAN: Continue with midodrine. We will plan on hemodialysis in a.m. Continue antibiotics. If the bacteremia does not clear, patient will need his catheter changed again. MMODL / IJN: [id number] /
[2021-08-08 20:14] LABS: Glucose,Whole Blood 218 mg/dL (75-99)
[2021-08-08] MEDS: traZODone HCL 100 MG TAB PO SCH (20:24)
[2021-08-09] MEDS: oxyCODONE-APAP 10-325MG 1 EACH TAB PO SCH ×2 (02:56→06:38)
[2021-08-09 06:12] LABS: Glucose,Whole Blood 187 mg/dL (75-99)
[2021-08-09] MEDS: INSULIN ASPART (NovoLOG) 100 UNIT/ML VIAL SQ SCH ×4 (06:37→21:09)
[2021-08-09] MEDS: PANTOPRAZOLE 40 MG TABLET PO SCH (06:38)
[2021-08-09] MEDS: MIDODRINE 5 MG TAB PO SCH ×3 (06:38→17:22)
[2021-08-09] MEDS: METOCLOPRAMIDE 5 MG TAB PO SCH ×3 (06:38→17:22)
[2021-08-09] MEDS: TIMOLOL 0.5% OPHTH DROPS 5 ML BTL RIGHT EYE SCH ×2 (09:37→21:08)
[2021-08-09 10:10] LABS: Basophils # (A) 0.1 k/uL (0-0.2); Basophils % (A) 1 %; Eosinophils # (A) 0.4 k/uL (0-0.7); Eosinophils % (A) 4 %; HCT 30.8 % (39.0-53.0); HGB 9.3 gm/dL (13.0-17.5); Hypochromasia Moderate; Lymphocytes # (A) 1.5 k/uL (1.0-4.8); Lymphocytes % (A) 17 %; MCH 29.5 pg (25.0-35.0); MCHC 30.3 g/dL (31.0-37.0); MCV 97.2 fL (80.0-100.0); Mean Platelet Volume 11.5; Monocytes # (A) 0.5 k/uL (0-1.0); Monocytes % (A) 6 %; Neutrophils # (A) 6.4 k/uL (1.3-7.7); Neutrophils % (A) 70 %; Platelet Count 181 k/uL (150-450); RBC 3.17 m/uL (4.30-5.90); RDW 15.7 % (11.5-15.5); WBC 9.2 k/uL (3.8-10.6)
[2021-08-09 10:14] LABS: ALT <6 U/L (4-49); AST 17 U/L (17-59); Albumin 3.4 g/dL (3.5-5.0); Alkaline Phosphatase 192 U/L (38-126); Anion Gap 21 mmol/L; Blood Urea Nitrogen 98 mg/dL (9-20); Calcium 8.8 mg/dL (8.4-10.2); Carbon Dioxide 21 mmol/L (22-30); Chloride 96 mmol/L (98-107); Glucose 161 mg/dL (74-99); Sodium 138 mmol/L (137-145); Total Bilirubin 0.6 mg/dL (0.2-1.3); Total Protein 6.7 g/dL (6.3-8.2)
[2021-08-09 10:19] LABS: African American GFR (CKD) 4 (>60 ml/min/1.73 sqM); Non-African American GFR(CKD) 3 (>60 ml/min/1.73 sqM)
[2021-08-09 11:47] LABS: Glucose,Whole Blood 119 mg/dL (75-99)
[2021-08-09] MEDS: FUROSEMIDE 80 MG TAB PO SCH ×2 (12:05→17:21)
[2021-08-09] MEDS: CALCIUM ACETATE 667 MG TAB PO SCH (12:06)
[2021-08-09] MEDS: ONDANSETRON 4 MG TAB PO SCH ×2 (12:06→21:08)
[2021-08-09] MEDS: APIXABAN 5 MG TAB PO SCH ×2 (12:13→21:08)
[2021-08-09] MEDS: ASPIRIN 81 MG PO SCH (12:13)
[2021-08-09] MEDS: DIALYVITE PO SCH (12:14)
--- NOTE | 2021-08-09 13:17 | PN ---
PROGRESS NOTE Patient is seen for followup for end-stage renal disease. He is currently seen on dialysis, tolerating his treatment well with. Creatinine was as high as 16. This morning the patient seems to be having a few jerky movements, however, he is mentation is much improved. He is maintained on BiPAP. EXAMINATION: Today blood pressure 109/56, heart rate 78 per minute, he is afebrile. Examination of the heart S1, S2. Examination of the lungs, decreased breath sounds at the bases. Abdomen is soft, obese. Exam of lower extremities shows no significant edema. LAB: Show sodium 138, potassium 5.0, BUN 98, serum creatinine 16. Hemoglobin 9.3 g/dL. ASSESSMENT: 1. End-stage renal disease, on hemodialysis, maintained on home hemo. The patient is currently being dialyzed. We will plan for a treatment again tomorrow since his creatinine is significantly elevated. 2. Mild hyperkalemia. Expect improvement with ongoing dialysis. 3. Staph aureus bacteremia, previous MSSA. Repeat blood culture is negative. Continue antibiotics. Patient may need change of catheter again if his repeat blood cultures are positive. The TTE did not show any vegetation, being considered for ANNABELLE. 4. Chronic kidney disease mineral bone disorder. 5. Anemia of chronic disease. PLAN: Hemodialysis today and again in a.m. MMODL / ODESSAN: [id number] /
[2021-08-09] MEDS: PREGABALIN 100 MG CAP PO SCH (14:23)
--- NOTE | 2021-08-09 15:23 | P.PN ---
Subjective Progress Note Date: 08/09/21 Patient is a 46-year-old male with end-stage renal disease on dialysis at home 5 times weekly, diabetes mellitus type 2 on insulin pump, neuropathy, and multiple other comorbid conditions who presented to the ER secondary to chills and rigors. In the ER he underwent an extensive evaluation. His COVID test negative, white blood cell count was normal, chest x-ray showed no signs of pneumonia, but he was found to have a fever of 101.4. He was given a dose of Rocephin and Tylenol agents made for admission. Blood cultures positive for MSSA, of not patient just completed a greater than 6 week course of IV ABX for MSSA line infection with removal/line holiday/ and line reinsertion. He had dec reased responsiveness on 08/08 and ABD showed CO2 retention and he was started on BiPap. Patient seen and examnined at bedside. He states that he feels tired, he deneis chest pain, SOB. He is aware of repeat line infection. General: ill appearing, no distress, appears at stated age Derm: warm, dry, multiple tatoos Head: atraumatic, normocephalic, symmetric Eyes: EOMI, no lid lag, anicteric sclera Mouth: no lip lesion, mucus membranes dry Cardiovascular: S1S2 reg, no murmur, positive posterior tibial pulse left lower extremity, Lungs: Course bs bilateral, no rhonchi, no rales , no accessory muscle use Abdominal: soft, nontender to palpation, no guarding, no appreciable organomegaly Ext: no gross muscle atrophy, no edema, no contractures Neuro: CN II-XI grossly intact, no focal neuro deficits Psych: lethargic, oriented X 2 (place and self), appropriate affect Recurrent MSSA bacteremia ESRD with HD cath right chest well, on HD 5 times weekly at home Acute metabolic encephalopathy - change percocet to PRN, decrease lyrica dosing - cefazolin - nephrology and ID recs - D/W cardio will consider ANNABELLE once respiratory status stabalized - TTE EF 55-60%, paradoxical septal wall motion - repeat cultures are positive - consider consult to vascular surgery Dr Sepulveda if cultures remains positive for line holiday DM 1 with isulin pump at home Neuropathy - continue with trulicity, SSI - follow BS - last A1C 5.9 - lyrica decreased Anemia of end stage renal disease - stable - follow CBC Recent Pulmonary Embolism - eliquis DVT prophylaxis: eliquis Discussed with: patient, nursing, Dr. Cope Anticipated discharge date:undetermined Anticipated discharge place: undetermined A total of 35 minutes was spent on the care of this complex patient more than 50% of the time was spent in counseling and care coordination. Objective - Vital Signs Vital signs: Vital Signs Temp 98.3 F 08/09/21 04:00 Pulse 82 08/09/21 14:05 Resp 15 08/09/21 14:05 BP 121/65 08/09/21 11:59 Pulse Ox 97 08/09/21 14:05 Intake & Output 08/08/21 08/09/21 08/09/21 18:59 06:59 18:59 Intake Total 0 50 Output Total 0 0 0 Balance 0 50 0 Weight 97 kg Intake: Intake, IV Titration 50 Amount ceFAZolin 1,000 mg In 50 Sodium Chloride 0.9% 50 ml @ 100 mls/hr IVPB Q24H [facility] Rx#:[id number] Oral 0 Output: Urine 0 0 0 Other: # Voids 0 # Bowel Movements 0 - Labs CBC & Chem 7: 08/09/21 09:13 08/09/21 09:13 Labs: Abnormal Lab Results - Last 24 Hours (Table) 08/08/21 08/08/21 08/08/21 Range/Units 17:09 20:09 20:11 RBC (4.30-5.90) m/uL Hgb (13.0-17.5) gm/dL Hct (39.0-53.0) % MCHC (31.0-37.0) g/dL RDW (11.5-15.5) % Potassium 5.4 H (3.5-5.1) mmol/L Chloride (98-107) mmol/L Carbon Dioxide (22-30) mmol/L BUN (9-20) mg/dL Creatinine (0.66-1.25) mg/dL Glucose (74-99) mg/dL POC Glucose (mg/dL) 224 H 218 H (75-99) mg/dL Alkaline Phosphatase (38-126) U/L Albumin (3.5-5.0) g/dL 08/09/21 08/09/21 08/09/21 Range/Units 06:11 09:13 09:13 RBC 3.17 L (4.30-5.90) m/uL Hgb 9.3 L (13.0-17.5) gm/dL Hct 30.8 L (39.0-53.0) % MCHC 30.3 L (31.0-37.0) g/dL RDW 15.7 H (11.5-15.5) % Potassium (3.5-5.1) mmol/L Chloride 96 L (98-107) mmol/L Carbon Dioxide 21 L (22-30) mmol/L BUN 98 H (9-20) mg/dL Creatinine 16.14 H* (0.66-1.25) mg/dL Glucose 161 H (74-99) mg/dL POC Glucose (mg/dL) 187 H (75-99) mg/dL Alkaline Phosphatase 192 H (38-126) U/L Albumin 3.4 L (3.5-5.0) g/dL 08/09/21 Range/Units 11:44 RBC (4.30-5.90) m/uL Hgb (13.0-17.5) gm/dL Hct (39.0-53.0) % MCHC (31.0-37.0) g/dL RDW (11.5-15.5) % Potassium (3.5-5.1) mmol/L Chloride (98-107) mmol/L Carbon Dioxide (22-30) mmol/L BUN (9-20) mg/dL Creatinine (0.66-1.25) mg/dL Glucose (74-99) mg/dL POC Glucose (mg/dL) 119 H (75-99) mg/dL Alkaline Phosphatase (38-126) U/L Albumin (3.5-5.0) g/dL Microbiology - Last 24 Hours (Table) 08/07/21 11:15 Blood Culture - Preliminary Blood No Growth after 48 hours 08/08/21 09:25 Blood Culture - Final Blood
[2021-08-09 16:37] LABS: Glucose,Whole Blood 176 mg/dL (75-99)
[2021-08-09] MEDS: NON FORMULARY DRUG (Vilazodone Hcl [Viibryd] 40 MG Tablet) PO SCH (17:23)
[2021-08-09] MEDS: oxyCODONE-APAP 10-325MG 1 EACH TAB PO PRN (17:29)
--- NOTE | 2021-08-09 18:28 | PN ---
PROGRESS NOTE DATE OF SERVICE: 08/09/2021 REASON FOR FOLLOWUP: MSSA bacteremia concerting for dialysis catheter infection versus endocarditis. INTERVAL HISTORY: The patient is afebrile. The patient is currently sleepy, lethargic. The patient denies having any chest pain. No vomiting, diarrhea or any changes reported. PHYSICAL EXAMINATION: Blood pressure is 121/65, pulse of 69, temperature is 98.3. The patient is 92% on 4 L nasal cannula. General description is a middle-aged male lying in bed in no distress. Respiratory system: Unlabored breathing, clear to auscultation anteriorly. Heart S1, S2. Regular rate and rhythm. Abdomen soft, no tenderness. LABS: Hemoglobin 9, white count 9.2, creatinine 16.14. Blood cultures th negative, however, coming back positive. DIAGNOSTIC IMPRESSION AND PLAN: Patient with persistent MSSA bacteremia concerning for dialysis catheter infection. Also, concern for possible endocarditis. We will obtain consultation with Cardiology for ANNABELLE. Continue with ( ). MMODL / IJN: [id number] /
--- NOTE | 2021-08-09 18:43 | EEG ---
ELECTROENCEPHALOGRAM REPORT DATE OF SERVICE: 08/08/2021 PREAMBLE: This is a 46-year-old male with altered mental status. EEG FINDINGS: This is a 21-channel portable, digital EEG recorded with video component, utilizing 10/20 international system with referential and bipolar montages. Background starts and continues with presence of diffuse moderate amplitude theta with some delta activity seen in bihemispheric region. Background does not seem to be reactive to eye opening and closing. Photic driving response was not seen. Frequent myogenic artifacts were seen when patient was wrinkling his forehead; almost a myoclonic jerks type pattern. No epileptiform activity was seen. Different stages of sleep were not seen. EKG channel showed no arrhythmia. IMPRESSION: This is an abnormal EEG due to background slowing of moderate degree. This is suggestive of generalized cerebral dysfunction as can be seen with toxic metabolic encephalopathy or due to diffuse structural brain abnormality. No definitive epileptiform activity was seen. Sporadic myoclonic twitching of the facial region was seen associated with high-amplitude myogenic spikes. No epileptiform activity was seen. MMBRENNANL / IJN: [id number] /
[2021-08-09 20:26] LABS: Glucose,Whole Blood 234 mg/dL (75-99)
[2021-08-09] MEDS: PREGABALIN 75 MG CAP PO SCH (21:08)
[2021-08-09] MEDS: traZODone HCL 100 MG TAB PO SCH (21:08)
[2021-08-09] MEDS: INSULIN DETEMIR (LEVEMIR) 100 UNIT/ML SYR SQ SCH (21:09)
--- NOTE | 2021-08-09 22:09 | P.PN ---
Subjective Progress Note Date: 08/09/21 Patient was seen for a follow-up. Patient has finally woken up. Per nurse report, he was started on BiPAP since yesterday. This morning he has woken up. Offers no complaints, laying comfortably in the bed. Patient had undergone dialysis today, and 2 L were taken off. Objective - Vital Signs Vital signs: Vital Signs Temp 98.3 F 08/09/21 04:00 Pulse 82 08/09/21 14:05 Resp 15 08/09/21 14:05 BP 121/65 08/09/21 11:59 Pulse Ox 92 L 08/09/21 15:56 Intake & Output 08/08/21 08/09/21 08/09/21 18:59 06:59 18:59 Intake Total 0 50 Output Total 0 0 0 Balance 0 50 0 Weight 97 kg Intake: Intake, IV Titration 50 Amount ceFAZolin 1,000 mg In 50 Sodium Chloride 0.9% 50 ml @ 100 mls/hr IVPB Q24H [facility] Rx#:[id number] Oral 0 Output: Urine 0 0 0 Other: # Voids 0 # Bowel Movements 0 - Exam Patient is still encephalopathic, groggy and somnolent, but wakes up, makes eye contact, follows commands. Speech and language functions appears normal. Pupils are round and reacting, visual martinez are full and face is symmetric. Tongue protrudes the midline. Patient still having significant myoclonic jerks upper extremities when the arms are extended. Muscle strength is normal in the arms distally and proximally. Patient able to lift his left leg up, with some resistance. Patient also has at least 4+ strength in the left ankle. Patient has right below-knee amputation. - Labs CBC & Chem 7: 08/09/21 09:13 08/09/21 09:13 Labs: Abnormal Lab Results - Last 24 Hours (Table) 08/08/21 08/08/21 08/08/21 Range/Units 17:09 20:09 20:11 RBC (4.30-5.90) m/uL Hgb (13.0-17.5) gm/dL Hct (39.0-53.0) % MCHC (31.0-37.0) g/dL RDW (11.5-15.5) % Potassium 5.4 H (3.5-5.1) mmol/L Chloride (98-107) mmol/L Carbon Dioxide (22-30) mmol/L BUN (9-20) mg/dL Creatinine (0.66-1.25) mg/dL Glucose (74-99) mg/dL POC Glucose (mg/dL) 224 H 218 H (75-99) mg/dL Alkaline Phosphatase (38-126) U/L Albumin (3.5-5.0) g/dL 08/09/21 08/09/21 08/09/21 Range/Units 06:11 09:13 09:13 RBC 3.17 L (4.30-5.90) m/uL Hgb 9.3 L (13.0-17.5) gm/dL Hct 30.8 L (39.0-53.0) % MCHC 30.3 L (31.0-37.0) g/dL RDW 15.7 H (11.5-15.5) % Potassium (3.5-5.1) mmol/L Chloride 96 L (98-107) mmol/L Carbon Dioxide 21 L (22-30) mmol/L BUN 98 H (9-20) mg/dL Creatinine 16.14 H* (0.66-1.25) mg/dL Glucose 161 H (74-99) mg/dL POC Glucose (mg/dL) 187 H (75-99) mg/dL Alkaline Phosphatase 192 H (38-126) U/L Albumin 3.4 L (3.5-5.0) g/dL 08/09/21 Range/Units 11:44 RBC (4.30-5.90) m/uL Hgb (13.0-17.5) gm/dL Hct (39.0-53.0) % MCHC (31.0-37.0) g/dL RDW (11.5-15.5) % Potassium (3.5-5.1) mmol/L Chloride (98-107) mmol/L Carbon Dioxide (22-30) mmol/L BUN (9-20) mg/dL Creatinine (0.66-1.25) mg/dL Glucose (74-99) mg/dL POC Glucose (mg/dL) 119 H (75-99) mg/dL Alkaline Phosphatase (38-126) U/L Albumin (3.5-5.0) g/dL Microbiology - Last 24 Hours (Table) 08/07/21 11:15 Blood Culture - Preliminary Blood No Growth after 48 hours 08/08/21 09:25 Blood Culture - Final Blood Assessment and Plan Assessment: * Altered mental status, likely due to toxic metabolic encephalopathy. Probably multifactorial, as mentioned below. Patient has myoclonic jerks of upper extremities consistent with metabolic dysfunction. * End-stage renal disease on hemodialysis. Patient's uremia seems to be getting worse. * Sepsis with evidence of gram-positive bacteremia MSSA, ID following. Patient on cefazolin. * Hypoxemia, probable GORDON, improved with BiPAP. * Diabetes type 1 with insulin pump. Diabetes poorly controlled. * Recent pulmonary embolism. * History of distal right lower leg amputation. * Obesity Plan: * Stat ABG was performed. Patient's pH is 7.25, pCO2 61, pO2 53 and saturation 80.4 on 32% FiO2. Patient's mentation has improved since started on BiPAP. * Patient's uremia seems to be getting worse. Nephrology on board. * Patient also had sepsis, ID on board. * EEG was abnormal due to background slowing of moderate degree. This is suggestive of generalized cerebral dysfunction as can be seen with toxic metabolic encephalopathy or due to diffuse structural brain abnormality. No definitive epileptiform activity was seen. Sporadic myoclonic twitching of the facial (forehead) region was seen, associated with high amplitude myogenic spikes. No obvious epileptiform activity was seen.. * 2-D echo revealed normal left ventricular size. Mild concentric LVH. EF is between 55-60%. There is paradoxical/this synergetic septal motion consistent with right ventricular volume overload and or elevated right ventricular end- diastolic pressure. Moderate TR. * Carotid Doppler no evidence of hemodynamically significant stenosis. Antegrade flow in both vertebral arteries. * Telemetric monitoring showing sinus rhythm with sinus tachycardia in 110s. * Neurologically patient has improved clinically.
[2021-08-10] MEDS: oxyCODONE-APAP 10-325MG 1 EACH TAB PO PRN ×2 (01:40→20:44)
[2021-08-10 06:19] LABS: Glucose,Whole Blood 201 mg/dL (75-99)
[2021-08-10] MEDS: MIDODRINE 5 MG TAB PO SCH ×3 (06:38→17:52)
[2021-08-10] MEDS: PANTOPRAZOLE 40 MG TABLET PO SCH (06:38)
[2021-08-10] MEDS: INSULIN DETEMIR (LEVEMIR) 100 UNIT/ML SYR SQ SCH ×2 (06:38→20:47)
[2021-08-10] MEDS: METOCLOPRAMIDE 5 MG TAB PO SCH ×3 (06:38→17:52)
[2021-08-10] MEDS: INSULIN ASPART (NovoLOG) 100 UNIT/ML VIAL SQ SCH ×4 (06:38→20:45)
[2021-08-10 07:15] LABS: HCT 32.5 % (39.0-53.0); HGB 9.5 gm/dL (13.0-17.5); Hypochromasia Marked; MCH 29.8 pg (25.0-35.0); MCHC 29.4 g/dL (31.0-37.0); MCV 101.7 fL (80.0-100.0); Macrocytosis Slight; Mean Platelet Volume 10.9; Platelet Count 147 k/uL (150-450); RDW 15.8 % (11.5-15.5); WBC 8.3 k/uL (3.8-10.6)
[2021-08-10 07:26] LABS: Calcium 8.4 mg/dL (8.4-10.2); Potassium 4.3 mmol/L (3.5-5.1)
[2021-08-10] MEDS: PREGABALIN 75 MG CAP PO SCH ×2 (09:16→20:44)
[2021-08-10] MEDS: FUROSEMIDE 80 MG TAB PO SCH ×2 (09:16→17:39)
[2021-08-10] MEDS: ONDANSETRON 4 MG TAB PO SCH ×2 (09:16→20:44)
[2021-08-10] MEDS: APIXABAN 5 MG TAB PO SCH ×2 (09:16→20:44)
[2021-08-10] MEDS: ASPIRIN 81 MG PO SCH (09:16)
[2021-08-10] MEDS: TIMOLOL 0.5% OPHTH DROPS 5 ML BTL RIGHT EYE SCH ×2 (09:17→20:55)
[2021-08-10] MEDS: DIALYVITE PO SCH (09:17)
--- NOTE | 2021-08-10 09:56 | P.CRDCN ---
History of Present Illness History of present illness: HISTORY OF PRESENTING ILLNESS This is a pleasant 46-year-old male past medical history significant for end stage renal disease on hemodialysis 5 days a week, dysautonomia, cor pulmonale, massive saddle pulmonary emboli status post ECOS procedure 03/19/21, seizure disorder, type 1 diabetes with insulin pump, neuropathy, hypertension, dyslipidemia. Recently had a staph bacteremia requiring removal and reinsertion of his hemodialysis catheter and on retirement antibiotics. He follows in the office with Dr. Freed. We have been asked to see in consultation for ANNABELLE. Patient presents to the emergency department secondary to fatigue, chills, fever, rigors. Patient had a fever of 101.4, he was tachycardic and hypoxic requiring BIPAP. While in the hospital 08/09, patient noted to have altered mental status, found to be extremely encephalopathic, having significant myoclonic jerks of upper extremities. Neurology was consulted. ABG was performed which revealed respiratory acidosis. Patient underwent an EEG, suggestive of generalized cerebral dysfunction as can be seen with toxic metabolic encephalopathy or due to diffuse structural brain abnormality. No definitive epileptiform activity was seen. Sporadic myoclonic twitching of the facial region was seen, associated with high amplitude myogenic spikes. Patient seen and examined at bedside, he is alert and oriented 3. His yelena athing has much improved. Blood pressure 10/31/1956, heart rate 83, afebrile he is maintaining oxygen saturations 95% on 4 L nasal cannula.laboratory data review WBC 8.3, hemoglobin 9.5, platelets 147, sodium 136, potassium 4.3, BUN 56, serum creatinine 9.6. he currently denies chest pain or shortness of breath. DIAGNOSTICS EKG reveals sinus tachycardia, heart rate 103, T wave inversion in lead III. Chest xray report revealed vague nodular appearing density in left upper lobe Echocardiogram: EF 5560 percent, paradoxical/dyskinetic septal motion consistent with right ventricle volume overload and or elevated right ventricular end diastolic pressure, mild mitral regurgitation, moderate tri cuspid regurgitation, moderate pulmonary hypertension Brain CT revealed no acute hemorrhage or mass effect. Low attenuation involving the left posterior cerebral hemisphere. Recent acute ischemia not included. Recommend MRI. Laboratory reviewed, Blood culture positive for Staph aureus, repeat blood culture negative. REVIEW OF SYSTEMS At the time of my exam: CONSTITUTIONAL: + fever + chills. CARDIOVASCULAR: Denies chest pain, shortness of breath, orthopnea, PND or palpitations. RESPIRATORY: Denies cough. GASTROINTESTINAL: Denies abdominal pain, diarrhea, constipation, nausea or vomiting. MUSCULOSKELETAL: Denies myalgias. NEUROLOGIC: Denies numbness, tingling, headacbe or weakness. ENDOCRINE: +fatigue, Denies weight change, polydipsia or polyurina. GENITOURINARY: Denies burning, hematuria or urgency with micturation. HEMATOLOGIC: Denies history of anemia or bleeding. PHYSICAL EXAMINATION CONSTITUTIONAL: No apparent distress. HEENT: Head is normocephalic. Pupils are equal, round. Sclerae anicteric. Mucous membranes of the mouth are moist. No JVD. No carotid bruit. CHEST EXAMINATION: Lungs are clear to auscultation. No chest wall tenderness is noted on palpation or with deep breathing. HEART EXAMINATION: Regular rate and rhythm. S1, S2 heard. No murmurs, gallops or rub. ABDOMEN: Soft, nontender. Positive bowel sounds. EXTREMITIES: 2+ peripheral pulses, no lower extremity edema and no calf tenderness. NEUROLOGIC EXAMINATION: Patient is awake, alert and oriented x3. ASSESSMENT Bacteremia Sepsis Acute hypoxic respiratory failure End stage renal disease on hemodialysis History of Dysautonomia History of massive saddle pulmonary emboli status post ECOS procedure 03/19/21 History of seizure disorder Type 1 diabetes with insulin pump Hypertension Dyslipidemia. PLAN We will plan for ANNABELLE today with Dr. Dewey. Keep Patient NPO I have discussed the risks, benefits and alternative therapies for the above- mentioned procedure and for both sedation/analgesia as they pertain to this patient. The patient has indicated understanding and acceptance of the risks and procedures discussed. Questions have been answered appropriately and he is agreeable to move forward with the above-stated procedure. Nurse Practitioner note has been reviewed, I agree with a documented findings and plan of care. Patient was seen and examined. Past Medical History Past Medical History: Diabetes Mellitus, Dialysis, GERD/Reflux, Hyperlipidemia, Pulmonary Embolus (PE), Renal Disease, Seizure Disorder, Syncope Additional Past Medical History / Comment(s): constipation, anemia, peripheral vascular disease, diabetes mellitus on insulin pump for blood sugar control, previous history of massive pulmonary embolism - ECOS, hyperlipidemia, HD at home History of Any Multi-Drug Resistant Organisms: None Reported Additional Past Surgical History / Comment(s): tom cataract, peritoneal dialysis catheter rt side, ECOS 03/19/21, [facility]O HD site left chest, right forearm fistula - no longer active, left arm fistula - no longer active, right chest HD temp. HD cath., RBKA Past Anesthesia/Blood Transfusion Reactions: No Reported Reaction Past Psychological History: Anxiety, Depression Smoking Status: Never smoker Past Alcohol Use History: None Reported Past Drug Use History: None Reported - Past Family History Mother Family Medical History: Cancer Father Family Medical History: Dementia Medications and Allergies Home Medications Medication Instructions Recorded Confirmed Type Dialyvite 1 tab PO DAILY 01/31/17 08/06/21 History Ergocalciferol [Vitamin D2 50,000 unit PO Q14D 01/31/17 08/06/21 History (DRISDOL)] INSULIN LISPRO (For Pump) [humaLOG 0.01 units SQ-PUMP CONTINUOUS 01/31/17 08/06/21 History (For Pump)] Omeprazole [PriLOSEC] 20 mg PO BID 01/31/17 08/06/21 History Timolol [Betimol 0.5% Ophth Soln] 1 drop RIGHT EYE BID 01/31/17 08/06/21 History Furosemide [Lasix] 80 mg PO BID 10/01/20 08/06/21 History Pregabalin [Lyrica] 200 mg PO TID 10/01/20 08/06/21 History oxyCODONE-APAP 10-325MG [Percocet 1 tab PO Q6H 10/01/20 08/06/21 History 10-325 mg] Metoclopramide [Reglan] 5 mg PO AC-TID 03/16/21 08/06/21 History Midodrine HCl [ProAmatine] 10 mg PO TID 03/16/21 08/06/21 History Ondansetron HCl [Zofran] 4 mg PO BID 03/16/21 08/06/21 History Apixaban [Eliquis] 5 mg PO BID 05/14/21 08/06/21 History Calcium Acetate [Phoslo] 667 mg PO AC-LUNCH 05/14/21 08/06/21 History Aspirin EC [Ecotrin Low Dose] 81 mg PO DAILY 08/06/21 08/06/21 History Dulaglutide [Trulicity] 1.5 mg SQ WE 08/06/21 08/06/21 History Heparin 1000 Units/Ml 6,400 units SQ MOTUTHFRSA 08/06/21 08/06/21 History Sennosides/Docusate Sodium [Senna 1 tab PO BID PRN 08/06/21 08/06/21 History Plus 8.6-50 mg Tablet] Vilazodone HCl [Viibryd] 40 mg PO PC-SUPPER 08/06/21 08/06/21 History traZODone HCL [Desyrel] 100 mg PO HS 08/06/21 08/06/21 History Allergies Allergy/AdvReac Type Severity Reaction Status Date / Time No Known Allergies Allergy Verified 08/06/21 09:25 Physical Exam Vitals: Vital Signs Temp Pulse Resp BP Pulse Ox 08/09/21 14:05 82 15 97 08/09/21 11:59 79 121/65 08/09/21 07:52 78 16 109/56 96 08/09/21 04:00 98.3 F 83 15 122/63 96 08/09/21 02:00 73 19 08/08/21 23:49 98.1 F 73 19 109/63 97 08/08/21 20:00 98.1 F 81 16 117/67 97 08/08/21 18:45 98 08/08/21 16:20 75 16 86/50 91 L Intake and Output 08/08/21 08/09/21 08/09/21 22:59 06:59 14:59 Intake Total 0 50 Output Total 0 0 Balance 0 50 0 Intake: Intake, IV Titration 50 Amount ceFAZolin 1,000 mg In 50 Sodium Chloride 0.9% 50 ml @ 100 mls/hr IVPB Q24H [facility] Rx#:[id number] Oral 0 Output: Urine 0 0 Other: # Voids 0 # Bowel Movements 0 Weight 97 kg Results 08/10/21 06:08 08/10/21 06:08 Cardiac Enzymes 08/09/21 Range/Units 09:13 AST 17 (17-59) U/L CBC 08/09/21 Range/Units 09:13 WBC 9.2 (3.8-10.6) k/uL RBC 3.17 L (4.30-5.90) m/uL Hgb 9.3 L (13.0-17.5) gm/dL Hct 30.8 L (39.0-53.0) % Plt Count 181 (150-450) k/uL Comprehensive Metabolic Panel 08/08/21 08/09/21 Range/Units 20:09 09:13 Sodium 138 (137-145) mmol/L Potassium 5.4 H 5.0 (3.5-5.1) mmol/L Chloride 96 L (98-107) mmol/L Carbon Dioxide 21 L (22-30) mmol/L BUN 98 H (9-20) mg/dL Creatinine 16.14 H* (0.66-1.25) mg/dL Glucose 161 H (74-99) mg/dL Calcium 8.8 (8.4-10.2) mg/dL AST 17 (17-59) U/L ALT <6 (4-49) U/L Alkaline Phosphatase 192 H (38-126) U/L Total Protein 6.7 (6.3-8.2) g/dL Albumin 3.4 L (3.5-5.0) g/dL Current Medications Generic Name Dose Route Start Last Admin Trade Name Freq PRN Reason Stop Dose Admin Acetaminophen 650 mg 08/06/21 09:56 Acetaminophen Tab 325 Mg Tab PO Q6HR PRN Mild Pain or Fever > 100.5 Apixaban 5 mg 08/06/21 21:00 08/09/21 12:13 Apixaban 5 Mg Tab PO Not Given BID [facility] Protocol Aspirin 81 mg 08/07/21 09:00 08/09/21 12:13 Aspirin 81 Mg PO Not Given DAILY [facility] Calcium Acetate 667 mg 08/06/21 12:30 08/09/21 12:06 Calcium Acetate 667 Mg Tab PO Not Given AC-LUNCH [facility] Furosemide 80 mg 08/06/21 16:00 08/09/21 12:05 Furosemide 80 Mg Tab PO Not Given BID@0900,1600 [facility] Cefazolin Sodium 1,000 mg/ 50 mls @ 100 mls/hr 08/07/21 21:00 08/08/21 21:37 Sodium Chloride IVPB 100 mls/hr Q24H [facility] Administration Insulin Aspart 0 unit 08/07/21 12:30 08/09/21 12:00 Insulin Aspart (Novolog) 100 Unit/Ml Vial SQ Not Given ACHS [facility] Protocol Insulin Detemir 5 unit 08/09/21 21:00 Insulin Detemir (Levemir) 100 Unit/Ml Syr SQ BID@0700,2100 [facility] Metoclopramide HCl 5 mg 08/06/21 12:30 08/09/21 12:06 Metoclopramide 5 Mg Tab PO Not Given AC-TID [facility] Midodrine 10 mg 08/07/21 10:11 Midodrine 5 Mg Tab PO ONCE PRN Hypotension Midodrine 10 mg 08/07/21 12:30 08/09/21 12:14 Midodrine 5 Mg Tab PO Not Given AC-TID [facility] Naloxone HCl 0.2 mg 08/06/21 09:56 Naloxone 0.4 Mg/Ml 1 Ml Vial IV Q2M PRN Opioid Reversal Non-Formulary Medication 40 mg 08/06/21 18:30 08/08/21 17:57 Vilazodone Hcl [Viibryd] PO Not Given PC-SUPPER [facility] Non-Formulary Medication 1.5 mg 08/08/21 09:00 08/08/21 12:36 Dulaglutide [Trulicity] SQ Not Given WE [facility] Non-Formulary Medication 1 tab 08/07/21 10:37 08/09/21 12:14 Dialyvite PO Not Given DAILY [facility] Ondansetron HCl 4 mg 08/06/21 21:00 08/09/21 12:06 Ondansetron 4 Mg Tab PO Not Given BID [facility] Ondansetron HCl 4 mg 08/06/21 16:32 Ondansetron 4 Mg/2 Ml Vial IVP Q8HR PRN Nausea And Vomiting Oxycodone/Acetaminophen 1 each 08/09/21 11:32 Oxycodone-Apap 10-325mg 1 Each Tab PO Q6HR PRN Breakthrough Pain Pantoprazole Sodium 40 mg 08/07/21 07:30 08/09/21 06:38 Pantoprazole 40 Mg Tablet PO 40 mg DAILY@0730 [facility] Administration Pregabalin 75 mg 08/09/21 21:00 Pregabalin 75 Mg Cap PO BID [facility] Senna/Docusate Sodium 1 each 08/06/21 16:33 Sennosides-Docusate Sodium 1 Each Tab PO BID PRN Constipation Timolol Maleate 1 drops 08/06/21 21:00 08/09/21 09:37 Timolol 0.5% Ophth Drops 5 Ml Btl RIGHT EYE 1 drops BID [facility] Administration Trazodone HCl 100 mg 08/06/21 21:00 08/08/21 20:24 Trazodone Hcl 100 Mg Tab PO Not Given HS [facility] Intake and Output 08/08/21 08/09/21 08/09/21 22:59 06:59 14:59 Intake Total 0 50 Output Total 0 0 Balance 0 50 0 Intake: Intake, IV Titration 50 Amount ceFAZolin 1,000 mg In 50 Sodium Chloride 0.9% 50 ml @ 100 mls/hr IVPB Q24H [facility] Rx#:[id number] Oral 0 Output: Urine 0 0 Other: # Voids 0 # Bowel Movements 0 Weight 97 kg 08/09/21 09:13 08/09/21 09:13
[2021-08-10 11:36] LABS: Glucose,Whole Blood 160 mg/dL (75-99)
[2021-08-10] MEDS: CALCIUM ACETATE 667 MG TAB PO SCH (12:53)
[2021-08-10] MEDS ORDERED: fentaNYL (PF) 50 MCG/ML 2 ML AMP ONE (13:31)
[2021-08-10] MEDS ORDERED: BENZOCAINE SPRAY 1 CAN TOPICAL ONE (13:45)
[2021-08-10] MEDS ORDERED: fentaNYL (PF) 50 MCG/ML 2 ML AMP IV ONE ×2 (13:46→13:59)
[2021-08-10] MEDS ORDERED: MIDAZOLAM 2 MG/2 ML VIAL IV ONE ×3 (13:46→13:59)
[2021-08-10] MEDS ORDERED: IV FLUID CONTINUATION 250 ML IV ONE (13:51)
[2021-08-10 16:33] LABS: Glucose,Whole Blood 237 mg/dL (75-99)
[2021-08-10] MEDS: NON FORMULARY DRUG (Vilazodone Hcl [Viibryd] 40 MG Tablet) PO SCH (16:55)
--- NOTE | 2021-08-10 17:16 | P.PN ---
Subjective Progress Note Date: 08/10/21 46-year-old male with end-stage renal disease on dialysis at home 5 times weekly, diabetes mellitus type 2 on insulin pump, neuropathy, and multiple other comorbid conditions who presented to the ER secondary to chills and rigors. In the ER he underwent an extensive evaluation. His COVID test negative, white blood cell count was normal, chest x-ray showed no signs of pneumonia, but he was found to have a fever of 101.4. He was given a dose of Rocephin and Tylenol agents made for admission. Blood cultures positive for MSSA, of not patient just completed a greater than 6 week course of IV ABX for MSSA line infection with removal/line holiday/ and line reinsertion. He had decreased responsiveness on 08/08 and ABD showed CO2 retention and he was started on BiPap. Patient seen and evaluated at bedside, today patient does not report any worsening of his breathing or report any new significant chest pain. Patient remains in no acute distress. Patient questions and concerns addressed at bedside, proper counseling done. Plan discussed with nursing staff. Objective - Vital Signs Vital signs: Vital Signs Temp 98.8 F 08/10/21 12:52 Pulse 86 08/10/21 14:10 Resp 16 08/10/21 14:10 BP 120/68 08/10/21 14:30 Pulse Ox 93 L 08/10/21 14:10 Intake & Output 08/09/21 08/10/21 08/10/21 18:59 06:59 18:59 Intake Total 240 20 230 Output Total 0 0 1999 Balance 240 20 -1770 Weight 96.5 kg Intake: IV 20 50 Invasive Line 3 20 Oral 240 180 Output: Urine 0 0 Stool 0 Hemodialysis 1999 General: ill appearing, no distress Head: atraumatic, normocephalic, symmetric Eyes: EOMI, no lid lag, anicteric sclera Cardiovascular: S1S2 reg, no murmur, positive posterior tibial pulse left lower extremity, Lungs: Course bs bilateral, no rhonchi, no rales , no accessory muscle use Abdominal: soft, nontender to palpation, no guarding, no appreciable organomegaly Ext: no gross muscle atrophy, no edema, no contractures Neuro: CN II-XI grossly intact, no focal neuro deficits - Labs CBC & Chem 7: 08/10/21 06:08 08/10/21 06:08 Labs: Abnormal Lab Results - Last 24 Hours (Table) 08/08/21 08/09/21 08/10/21 Range/Units 16:32 19:52 06:08 RBC 3.20 L (4.30-5.90) m/uL Hgb 9.5 L (13.0-17.5) gm/dL Hct 32.5 L (39.0-53.0) % MCV 101.7 H (80.0-100.0) fL MCHC 29.4 L (31.0-37.0) g/dL RDW 15.8 H (11.5-15.5) % Plt Count 147 L (150-450) k/uL Sodium (137-145) mmol/L Carbon Dioxide (22-30) mmol/L BUN (9-20) mg/dL Creatinine (0.66-1.25) mg/dL Glucose (74-99) mg/dL POC Glucose (mg/dL) 234 H (75-99) mg/dL Methylmalonic Acid 1.73 H (<0.40) umol/L 08/10/21 08/10/21 08/10/21 Range/Units 06:08 06:13 11:34 RBC (4.30-5.90) m/uL Hgb (13.0-17.5) gm/dL Hct (39.0-53.0) % MCV (80.0-100.0) fL MCHC (31.0-37.0) g/dL RDW (11.5-15.5) % Plt Count (150-450) k/uL Sodium 136 L (137-145) mmol/L Carbon Dioxide 21 L (22-30) mmol/L BUN 56 H (9-20) mg/dL Creatinine 9.65 H* (0.66-1.25) mg/dL Glucose 189 H (74-99) mg/dL POC Glucose (mg/dL) 201 H 160 H (75-99) mg/dL Methylmalonic Acid (<0.40) umol/L 08/10/21 Range/Units 16:31 RBC (4.30-5.90) m/uL Hgb (13.0-17.5) gm/dL Hct (39.0-53.0) % MCV (80.0-100.0) fL MCHC (31.0-37.0) g/dL RDW (11.5-15.5) % Plt Count (150-450) k/uL Sodium (137-145) mmol/L Carbon Dioxide (22-30) mmol/L BUN (9-20) mg/dL Creatinine (0.66-1.25) mg/dL Glucose (74-99) mg/dL POC Glucose (mg/dL) 237 H (75-99) mg/dL Methylmalonic Acid (<0.40) umol/L Microbiology - Last 24 Hours (Table) 08/06/21 08:16 Blood Culture Gram Stain - Final Blood Blood Culture - Final Staphylococcus aureus 08/07/21 11:15 Blood Culture - Preliminary Blood No Growth after 72 hours 08/09/21 09:13 Blood Culture - Preliminary Blood No Growth after 24 hours 08/08/21 09:25 Blood Culture Gram Stain - Preliminary Blood Blood Culture - Preliminary Presumptive Staph aureus 08/06/21 08:02 Blood Culture Gram Stain - Final Blood Blood Culture - Final Staphylococcus aureus Assessment and Plan Assessment: Sepsis with Recurrent MSSA bacteremia -Source of MSSA unclear, plan for ANNABELLE today -Once we have negative cultures will plan to replace dialysis catheter, we'll discuss plan with infection disease -Continue cefazolin per infectious disease recommendation I-nfection disease consulted and is following 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 Expecting for 5 more days stay in the hospital.
--- NOTE | 2021-08-10 18:23 | PN ---
PROGRESS NOTE DATE OF SERVICE: 08/10/2021 REASON FOR FOLLOWUP: MSSA bacteremia. INTERVAL HISTORY: The patient is afebrile. The patient is breathing comfortably. The patient denies having any chest pain. No shortness of breath. Occasional cough. No abdominal pain, no diarrhea. Status post ANNABELLE with report pending. PHYSICAL EXAMINATION: Blood pressure is 120/68, pulse of 86, temperature 98.8. He is 93% on 4 L nasal cannula. General description is a middle-aged male lying in bed. Respiratory system: Unlabored breathing, clear to auscultation anteriorly. Heart S1, S2. Regular rate and rhythm. Abdomen soft, no tenderness. LABS: Hemoglobin 7.5, white count 8.3. Creatinine is 9.65. DIAGNOSTIC IMPRESSION AND PLAN: Patient with MSSA bacteremia concerning for possible endovascular source status post ANNABELLE. Will await for results to finalize. Continue cefazolin and monitor clinical course closely. Continue supportive care. MMODL / IJN: [id number] /
[2021-08-10 19:48] LABS: Glucose,Whole Blood 329 mg/dL (75-99)
--- NOTE | 2021-08-10 20:17 | PN ---
PROGRESS NOTE Patient is seen for followup for end-stage renal disease. He is currently seen on hemodialysis, tolerating his treatment well. Patient was admitted to the hospital with fever and he is bacteremic with MSSA. This is his second episode of MSSA bacteremia. Patient did complete a course of more than 6 weeks of antibiotics as outpatient and his IJ PermCath was also changed. He is scheduled for a ANNABELLE today to rule out any underlying endocarditis. His first episode of bacteremia was at the end of April of this year. Currently being followed by ID. On examination today, patient is comfortable. He is seen on dialysis, tolerating his treatment well. Blood pressure was 110/64, heart rate of 80 per minute. He is afebrile. EXAMINATION OF THE HEART: S1 and S2. EXAMINATION OF LUNGS: Bilateral breath sounds are heard. Abdomen is soft, non-tender. Examination of lower extremities shows no significant edema. BLOCK CUBER exam is grossly intact. Labs show sodium 136, potassium 4.3, hemoglobin 9.5 g/dL. Blood cultures from 08/06 as well as 08/08 are positive for Staph aureus. ASSESSMENT: 1. End-stage renal disease, maintained on home hemodialysis, currently being dialyzed daily for significant hypercatabolic state and significantly elevated serum creatinine. We will dialyze the patient again tomorrow. He will have a break on Friday and then resume dialysis on Friday. 2. Chronic kidney disease mineral bone disorder, maintained on PhosLo. 3. Volume overload. UF of about 2 L again tomorrow. 4. History of massive pulmonary embolism, status post EKOS procedure, maintained on anticoagulation in the summer of this year. PLAN: Repeat hemodialysis in a.m. Continue antibiotics. Follow up on ANNABLELE results. MMODL / IJN: [id number] /
[2021-08-10] MEDS: traZODone HCL 100 MG TAB PO SCH (20:44)
[2021-08-11] MEDS ORDERED: FAMOTIDINE 20 MG TAB PO PRN (01:03)
[2021-08-11] MEDS: oxyCODONE-APAP 10-325MG 1 EACH TAB PO PRN ×2 (04:47→17:26)
[2021-08-11 06:05] LABS: Glucose,Whole Blood 259 mg/dL (75-99)
[2021-08-11] MEDS: INSULIN DETEMIR (LEVEMIR) 100 UNIT/ML SYR SQ SCH ×2 (06:39→21:33)
[2021-08-11] MEDS: INSULIN ASPART (NovoLOG) 100 UNIT/ML VIAL SQ SCH ×4 (06:39→21:33)
[2021-08-11] MEDS: PANTOPRAZOLE 40 MG TABLET PO SCH (06:39)
[2021-08-11] MEDS: METOCLOPRAMIDE 5 MG TAB PO SCH ×3 (06:39→17:15)
[2021-08-11] MEDS: MIDODRINE 5 MG TAB PO SCH ×3 (07:51→17:15)
--- NOTE | 2021-08-11 08:46 | P.PN ---
Subjective Progress Note Date: 08/10/21 Patient was seen for a follow-up. Patient is fully alert and awake. Patient denies any headache. Patient underwent ANNABELLE today, which revealed no evidence of vegetations. Patient's son was also present today. Patient mentation is back to normal. Objective - Vital Signs Vital signs: Vital Signs Temp 98.0 F 08/11/21 04:00 Pulse 83 08/11/21 04:00 Resp 18 08/11/21 04:00 BP 109/57 08/11/21 04:00 Pulse Ox 96 08/11/21 04:00 Intake & Output 08/10/21 08/11/21 08/11/21 18:59 06:59 18:59 Intake Total 467 Output Total 2250 60 Balance -1783 -60 Weight 96 kg Intake: IV 50 Oral 417 Output: Urine 250 60 Hemodialysis 2000 Other: # Voids 1 - Exam Patient is now fully alert awake, following commands, no more encephalopathic. He is getting hemodialysis. Speech and language functions are normal. patient can name and repeat very well. Patient knows it is July 2021 and that he is in [facility]. Pupils are round and reacting, visual martinez are full and face is symmetric. Tongue protrudes the midline. patient's myoclonic jerking of upper extremities have much improved. Very minimal at this time. Muscle strength is normal in the arms distally and proximally. patient's strength in the left lower limb is also normal. Patient has right below-knee amputation. - Labs CBC & Chem 7: 08/10/21 06:08 08/10/21 06:08 Labs: Abnormal Lab Results - Last 24 Hours (Table) 08/10/21 08/10/21 08/10/21 Range/Units 11:34 16:31 19:47 POC Glucose (mg/dL) 160 H 237 H 329 H (75-99) mg/dL 08/11/21 Range/Units 06:03 POC Glucose (mg/dL) 259 H (75-99) mg/dL Microbiology - Last 24 Hours (Table) 08/09/21 09:13 Blood Culture Gram Stain - Preliminary Blood 08/09/21 09:13 Blood Culture - Final Blood 08/06/21 08:16 Blood Culture Gram Stain - Final Blood Blood Culture - Final Staphylococcus aureus 08/07/21 11:15 Blood Culture - Preliminary Blood No Growth after 72 hours 08/08/21 09:25 Blood Culture Gram Stain - Preliminary Blood Blood Culture - Preliminary Presumptive Staph aureus Assessment and Plan Assessment: * Altered mental status, likely due to toxic metabolic encephalopathy. Probably multifactorial, as mentioned below. Patient's encephalopathy has resolved. His myoclonic jerks have much improved. * End-stage renal disease on hemodialysis. Patient's uremia seems to be getting worse. * Sepsis with evidence of gram-positive bacteremia MSSA, ID following. Patient on cefazolin. * Hypoxemia, probable GORDON, improved with BiPAP. * Diabetes type 1 with insulin pump. Diabetes poorly controlled. * Recent pulmonary embolism. * History of distal right lower leg amputation. * Obesity Plan: * Patient's mentation has improved since started on BiPAP, getting hemodialysis and treatment of infection. patient's encephalopathy has mostly resolved. * Patient is getting hemodialysis. Nephrology on board. * Patient also had sepsis, ID on board. ANNABELLE was performed today, which revealed no vegetations. Patient may have infected catheter. * EEG was abnormal due to background slowing of moderate degree. This is suggestive of generalized cerebral dysfunction as can be seen with toxic metabolic encephalopathy or due to diffuse structural brain abnormality. No definitive epileptiform activity was seen. Sporadic myoclonic twitching of the facial (forehead) region was seen, associated with high amplitude myogenic spikes. No obvious epileptiform activity was seen.. * 2-D echo revealed normal left ventricular size. Mild concentric LVH. EF is between 55-60%. There is paradoxical/this synergetic septal motion consistent with right ventricular volume overload and or elevated right ventricular end- diastolic pressure. Moderate TR. * Carotid Doppler no evidence of hemodynamically significant stenosis. Antegrade flow in both vertebral arteries. * Telemetric monitoring showing sinus rhythm with sinus tachycardia in 110s. * Neurologically patient has improved remarkably. His mentation appears normal now. As there is no active neurological issue, neurology will sign off. Please reconsult neurology if any concerns.
[2021-08-11] MEDS: PREGABALIN 75 MG CAP PO SCH ×2 (10:37→21:32)
[2021-08-11] MEDS: DIALYVITE PO SCH (10:37)
[2021-08-11] MEDS: APIXABAN 5 MG TAB PO SCH ×2 (10:37→21:33)
[2021-08-11] MEDS: TIMOLOL 0.5% OPHTH DROPS 5 ML BTL RIGHT EYE SCH ×2 (10:38→21:34)
[2021-08-11] MEDS: ASPIRIN 81 MG PO SCH (10:38)
[2021-08-11] MEDS: FUROSEMIDE 80 MG TAB PO SCH ×2 (10:38→17:15)
[2021-08-11] MEDS: ONDANSETRON 4 MG TAB PO SCH ×2 (10:38→21:33)
[2021-08-11 11:36] LABS: Glucose,Whole Blood 196 mg/dL (75-99)
[2021-08-11] MEDS: CALCIUM ACETATE 667 MG TAB PO SCH (12:01)
--- NOTE | 2021-08-11 15:05 | P.PN ---
Subjective Progress Note Date: 08/11/21 Follow-up for ESRD. Objective - Vital Signs Vital signs: Vital Signs Temp 98.0 F 08/11/21 04:00 Pulse 83 08/11/21 04:00 Resp 18 08/11/21 08:00 BP 109/57 08/11/21 04:00 Pulse Ox 96 08/11/21 04:00 Intake & Output 08/10/21 08/11/21 08/11/21 18:59 06:59 18:59 Intake Total 467 237 Output Total 2250 60 Balance -1783 -60 237 Weight 96 kg Intake: IV 50 Oral 417 237 Output: Urine 250 60 Hemodialysis 2000 Other: # Voids 1 - Exam No acute distress S1-S2 heard Lungs clear No edema - Labs CBC & Chem 7: 08/10/21 06:08 08/10/21 06:08 Labs: Abnormal Lab Results - Last 24 Hours (Table) 08/10/21 08/10/21 08/11/21 Range/Units 16:31 19:47 06:03 POC Glucose (mg/dL) 237 H 329 H 259 H (75-99) mg/dL 08/11/21 Range/Units 11:34 POC Glucose (mg/dL) 196 H (75-99) mg/dL Microbiology - Last 24 Hours (Table) 08/07/21 11:15 Blood Culture - Preliminary Blood No Growth after 96 hours 08/09/21 09:13 Blood Culture Gram Stain - Preliminary Blood 08/09/21 09:13 Blood Culture - Final Blood 08/06/21 08:16 Blood Culture Gram Stain - Final Blood Blood Culture - Final Staphylococcus aureus 08/08/21 09:25 Blood Culture Gram Stain - Preliminary Blood Blood Culture - Preliminary Presumptive Staph aureus Assessment and Plan Assessment: #1 sepsis with MSSA bacteremia #2 ESRD on hemodialysis #3 anemia with ESRD #4 metabolic bone disease with ESRD #5 hypertension with ESRD Plan: #1 hemodialysis MWF schedule #2 antibiotics as per infectious disease #3 ANNABELLE pending
[2021-08-11 16:34] LABS: Glucose,Whole Blood 285 mg/dL (75-99)
[2021-08-11] MEDS: NON FORMULARY DRUG (Vilazodone Hcl [Viibryd] 40 MG Tablet) PO SCH (17:15)
--- NOTE | 2021-08-11 18:03 | P.PN ---
Subjective Progress Note Date: 08/11/21 46-year-old male with end-stage renal disease on dialysis at home 5 times weekly, diabetes mellitus type 2 on insulin pump, neuropathy, and multiple other comorbid conditions who presented to the ER secondary to chills and rigors. In the ER he underwent an extensive evaluation. His COVID test negative, white blood cell count was normal, chest x-ray showed no signs of pneumonia, but he was found to have a fever of 101.4. He was given a dose of Rocephin and Tylenol agents made for admission. Blood cultures positive for MSSA, of not patient just completed a greater than 6 week course of IV ABX for MSSA line infection with removal/line holiday/ and line reinsertion. He had decreased responsiveness on 08/08 and ABD showed CO2 retention and he was started on BiPap. Patient seen and evaluated at bedside, today patient does not report any worsening of his breathing or report any new significant chest pain. Patient remains in no acute distress. Patient questions and concerns addressed at bedside, proper counseling done. Plan discussed with nursing staff. Objective - Vital Signs Vital signs: Vital Signs Temp 98.3 F 08/11/21 08:00 Pulse 84 08/11/21 12:00 Resp 20 08/11/21 12:00 BP 110/64 08/11/21 12:00 Pulse Ox 96 08/11/21 12:00 Intake & Output 08/10/21 08/11/21 08/11/21 18:59 06:59 18:59 Intake Total 467 237 Output Total 2250 60 200 Balance -1783 -60 37 Weight 96 kg Intake: IV 50 Oral 417 237 Output: Urine 250 60 200 Hemodialysis 2000 Other: # Voids 1 General: ill appearing, no distress Head: atraumatic, normocephalic, symmetric Eyes: EOMI, no lid lag, anicteric sclera Cardiovascular: S1S2 reg, no murmur, positive posterior tibial pulse left lower extremity, Lungs: Course bs bilateral, no rhonchi, no rales , no accessory muscle use Abdominal: soft, nontender to palpation, no guarding, no appreciable organomegaly Ext: no gross muscle atrophy, no edema, no contractures Neuro: CN II-XI grossly intact, no focal neuro deficits - Labs CBC & Chem 7: 08/10/21 06:08 08/10/21 06:08 Labs: Abnormal Lab Results - Last 24 Hours (Table) 08/10/21 08/11/21 08/11/21 Range/Units 19:47 06:03 11:34 POC Glucose (mg/dL) 329 H 259 H 196 H (75-99) mg/dL 08/11/21 Range/Units 16:32 POC Glucose (mg/dL) 285 H (75-99) mg/dL Microbiology - Last 24 Hours (Table) 08/08/21 09:25 Blood Culture Gram Stain - Final Blood Blood Culture - Final Staphylococcus aureus 08/07/21 11:15 Blood Culture - Preliminary Blood No Growth after 96 hours 08/09/21 09:13 Blood Culture Gram Stain - Preliminary Blood 08/09/21 09:13 Blood Culture - Final Blood 08/06/21 08:16 Blood Culture Gram Stain - Final Blood Blood Culture - Final Staphylococcus aureus Assessment and Plan Assessment: Sepsis with Recurrent MSSA bacteremia -Source of MSSA unclear, ANNABELLE done, results pending -Once we have negative cultures will plan to replace dialysis catheter, we'll discuss plan with infection disease -Continue cefazolin per infectious disease recommendation I-nfection disease consulted and is following 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 Expecting for 5 more days stay in the hospital.
[2021-08-11 20:18] LABS: Glucose,Whole Blood 371 mg/dL (75-99)
[2021-08-11] MEDS: traZODone HCL 100 MG TAB PO SCH (21:33)
--- NOTE | 2021-08-11 21:47 | PN ---
PROGRESS NOTE DATE OF SERVICE: 08/11/2021 REASON FOR FOLLOWUP: MSSA bacteremia. INTERVAL HISTORY: The patient is afebrile. The patient is breathing comfortably. The patient denies having any chest pain, shortness of breath or cough. No nausea or vomiting. No abdominal pain or diarrhea. PHYSICAL EXAMINATION: Blood pressure 128/62 with a pulse of 82, temperature of 98. He is 93% on 3 L nasal cannula. General description is a middle-aged male lying in bed in no distress. RESPIRATORY SYSTEM: Unlabored breathing. Clear to auscultation anteriorly. HEART: S1, S2. Regular rate and rhythm. ABDOMEN: Soft. No tenderness. EXTREMITIES: No edema of the feet. LABS: Blood cultures from 08/09 are still positive. DIAGNOSTIC IMPRESSION AND PLAN: Patient with persistent MSSA bacteremia concerning for a possible endovascular source, though ANNABELLE was negative. Concerning for an infection from the dialysis catheter, which should be discontinued. Will also obtain a WBC scan for possible colonization of the infection source. Continue with supportive care. Continue with cefazolin. Monitor his clinical course closely. MMODL / IJN: [id number] /
[2021-08-12] MEDS: oxyCODONE-APAP 10-325MG 1 EACH TAB PO PRN ×4 (00:18→23:28)
[2021-08-12 06:17] LABS: Glucose,Whole Blood 318 mg/dL (75-99)
[2021-08-12] MEDS: METOCLOPRAMIDE 5 MG TAB PO SCH ×3 (06:41→17:05)
[2021-08-12] MEDS: INSULIN DETEMIR (LEVEMIR) 100 UNIT/ML SYR SQ SCH ×2 (06:41→21:09)
[2021-08-12] MEDS: PANTOPRAZOLE 40 MG TABLET PO SCH (06:41)
[2021-08-12] MEDS: INSULIN ASPART (NovoLOG) 100 UNIT/ML VIAL SQ SCH ×4 (06:41→21:08)
[2021-08-12] MEDS: MIDODRINE 5 MG TAB PO SCH ×3 (06:41→18:12)
--- NOTE | 2021-08-12 09:45 | P.PN ---
Subjective Progress Note Date: 08/12/21 Follow-up for ESRD. Objective - Vital Signs Vital signs: Vital Signs Temp 98.4 F 08/12/21 04:00 Pulse 82 08/12/21 04:00 Resp 18 08/12/21 08:00 BP 121/64 08/12/21 04:00 Pulse Ox 97 08/12/21 04:00 Intake & Output 08/11/21 08/12/21 08/12/21 18:59 06:59 18:59 Intake Total 237 20 Output Total 400 Balance -163 20 Weight 95.7 kg Intake: IV 20 Invasive Line 4 20 Oral 237 Output: Urine 400 Stool 0 Other: # Voids 0 # Bowel Movements 0 - Exam No acute distress S1-S2 heard Lungs clear No edema Right jugular permacath - Labs CBC & Chem 7: 08/10/21 06:08 08/10/21 06:08 Labs: Abnormal Lab Results - Last 24 Hours (Table) 08/11/21 08/11/21 08/11/21 Range/Units 11:34 16:32 19:58 POC Glucose (mg/dL) 196 H 285 H 371 H (75-99) mg/dL 08/12/21 Range/Units 05:54 POC Glucose (mg/dL) 318 H (75-99) mg/dL Microbiology - Last 24 Hours (Table) 08/08/21 09:25 Blood Culture Gram Stain - Final Blood Blood Culture - Final Staphylococcus aureus 08/07/21 11:15 Blood Culture - Preliminary Blood No Growth after 96 hours 08/09/21 09:13 Blood Culture Gram Stain - Preliminary Blood Assessment and Plan Assessment: #1 sepsis with MSSA bacteremia #2 ESRD on hemodialysis, home dialysis 4 times a week #3 anemia with ESRD #4 metabolic bone disease with ESRD #5 hypertension with ESRD Plan: #1 hemodialysis MWF schedule, while in the hospital #2 antibiotics as per infectious disease #3 ANNABELLE pending
[2021-08-12] MEDS: APIXABAN 5 MG TAB PO SCH ×2 (11:22→21:08)
[2021-08-12] MEDS: FUROSEMIDE 80 MG TAB PO SCH ×2 (11:22→17:04)
[2021-08-12] MEDS: ASPIRIN 81 MG PO SCH (11:23)
[2021-08-12] MEDS: PREGABALIN 75 MG CAP PO SCH ×2 (11:23→21:08)
[2021-08-12] MEDS: DIALYVITE PO SCH (11:23)
[2021-08-12] MEDS: ONDANSETRON 4 MG TAB PO SCH ×2 (11:23→21:08)
[2021-08-12] MEDS: TIMOLOL 0.5% OPHTH DROPS 5 ML BTL RIGHT EYE SCH ×2 (11:23→21:08)
[2021-08-12] MEDS: NON FORMULARY DRUG (Vilazodone Hcl [Viibryd] 40 MG Tablet) PO SCH (11:39)
[2021-08-12 11:43] LABS: Glucose,Whole Blood 399 mg/dL (75-99)
[2021-08-12] MEDS: CALCIUM ACETATE 667 MG TAB PO SCH (11:53)
--- NOTE | 2021-08-12 15:14 | P.PN ---
Subjective Progress Note Date: 08/12/21 46-year-old male past medical history significant for end stage renal disease on hemodialysis 5 days a week, dysautonomia, cor pulmonale, massive saddle pulmonary emboli status post ECOS procedure 03/19/21, seizure disorder, type 1 diabetes with insulin pump, neuropathy, hypertension, dyslipidemia. Recently had a staph bacteremia requiring removal and reinsertion of his hemodialysis catheter and on alf antibiotics. Patient presents to the emergency department secondary to fatigue, chills, fever, rigors. Patient had a fever of 101.4, he was tachycardic and hypoxic requiring BIPAP. While in the hospital 08/09, patient noted to have altered mental status, found to be extremely enceph alopathic, having significant myoclonic jerks of upper extremities. Neurology was consulted. ABG was performed which revealed respiratory acidosis. Patient underwent an EEG, suggestive of generalized cerebral dysfunction as can be seen with toxic metabolic encephalopathy or due to diffuse structural brain abnormality. No definitive epileptiform activity was seen. Sporadic myoclonic twitching of the facial region was seen, associated with high amplitude myogenic spikes. Patient currenly being treated for sepsis with evidence of gram-positive bacteremia MSSA. ID has been consulted and, also cardiology was consulted for ANNABELLE, results of ANNABELLE pending. Patient seen and evaluated at bedside, today patient does not report any worsening of his breathing or report any new significant chest pain. Patient remains in no acute distress. Patient questions and concerns addressed at beds maria guadalupe, proper counseling done. Plan discussed with nursing staff. Objective - Vital Signs Vital signs: Vital Signs Temp 98.3 F 08/12/21 08:00 Pulse 78 08/12/21 08:00 Resp 18 08/12/21 13:43 BP 118/68 08/12/21 08:00 Pulse Ox 95 08/12/21 08:00 Intake & Output 08/11/21 08/12/21 08/12/21 18:59 06:59 18:59 Intake Total 237 20 580 Output Total 400 100 Balance -163 20 480 Weight 95.7 kg Intake: IV 20 Invasive Line 4 20 Oral 237 580 Output: Urine 400 100 Stool 0 Other: # Voids 0 # Bowel Movements 0 General: non toxic, no acute distress, alert oriented to time place and person Head: atraumatic, normocephalic, symmetric Eyes: no lid lesion], anicteric sclera Mouth: no lip lesion, mucus membranes moist Cardiovascular: S1S2 reg rate and rhythm, no murmur, no gallop Lungs: Bilateral equal air entry, no wheezing no rhonchi no crackles. Abdominal: soft, nontender to palpation, no guarding, no appreciable organomegaly Ext: no gross muscle atrophy, no edema extremities warm to suppose a positive Neuro: Alert oriented to time place and person, exam grossly nonfocal Psych: Mood and affect appropriate, patient not so certain Skin exam: No rashes no jaundice.. - Labs CBC & Chem 7: 08/10/21 06:08 08/10/21 06:08 Labs: Abnormal Lab Results - Last 24 Hours (Table) 08/11/21 08/11/21 08/12/21 Range/Units 16:32 19:58 05:54 POC Glucose (mg/dL) 285 H 371 H 318 H (75-99) mg/dL 08/12/21 Range/Units 11:41 POC Glucose (mg/dL) 399 H (75-99) mg/dL Microbiology - Last 24 Hours (Table) 08/07/21 11:15 Blood Culture - Preliminary Blood No Growth after 120 hours 08/09/21 09:13 Blood Culture Gram Stain - Preliminary Blood Blood Culture - Preliminary Presumptive Staph aureus 08/08/21 09:25 Blood Culture Gram Stain - Final Blood Blood Culture - Final Staphylococcus aureus Assessment and Plan Assessment: Sepsis with Recurrent MSSA bacteremia Source of MSSA unclear, ANNABELLE pending Once we have negative cultures will plan to replace dialysis catheter, we'll discuss plan with infection disease Continue cefazolin per infectious disease recommendation Infection disease consulted and is following 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 Expecting for 5 more days stay in the hospital.
[2021-08-12 16:55] LABS: Glucose,Whole Blood 589 mg/dL (75-99)
--- NOTE | 2021-08-12 17:29 | PN ---
PROGRESS NOTE DATE OF SERVICE: 08/12/2021 REASON FOR FOLLOWUP: MSSA bacteremia, possible ( ). INTERVAL HISTORY: The patient is afebrile. The patient is currently breathing comfortably. Denies having any chest pain. No shortness of breath. No cough. No nausea, vomiting. No abdominal pain or diarrhea. PHYSICAL EXAMINATION: Blood pressure 118/68 with a pulse of 73, temperature 98.3. He is 95% on 2 L nasal cannula. General description is a middle-aged male lying in bed in no distress. Respiratory system: Unlabored breathing, decreased intensity of breath sounds. No wheeze. Heart S1, S2. Regular rate and rhythm. Abdomen soft, no tenderness. LABS: Blood culture from 21st positive. DIAGNOSTIC IMPRESSION AND PLAN: Patient with persistent MSSA bacteremia, possibly related to dialysis. Underlying deep source needs to be ruled out. WBC scan is ordered, will wait for it to finalize. Also, need a CT of abdomen, pelvis and chest with contrast, can be done before dialysis. This discussed with his barrel endshake adjuster. Continue cefazolin ( ) blood culture to document clearance of his bacteremia. MMODL / IJN: [id number] /
[2021-08-12 18:56] LABS: Glucose,Whole Blood 581 mg/dL (75-99)
[2021-08-12 19:47] LABS: Glucose,Whole Blood 483 mg/dL (75-99)
[2021-08-12] MEDS: traZODone HCL 100 MG TAB PO SCH (21:08)
[2021-08-12 23:23] LABS: Glucose,Whole Blood 198 mg/dL (75-99)
[2021-08-13 06:35] LABS: Glucose,Whole Blood 95 mg/dL (75-99)
[2021-08-13] MEDS: INSULIN ASPART (NovoLOG) 100 UNIT/ML VIAL SQ SCH ×4 (06:39→21:07)
[2021-08-13] MEDS: MIDODRINE 5 MG TAB PO SCH ×3 (06:45→15:54)
[2021-08-13] MEDS: METOCLOPRAMIDE 5 MG TAB PO SCH ×3 (06:51→17:24)
[2021-08-13] MEDS: PANTOPRAZOLE 40 MG TABLET PO SCH (06:51)
[2021-08-13] MEDS: INSULIN DETEMIR (LEVEMIR) 100 UNIT/ML SYR SQ SCH ×2 (06:51→21:07)
[2021-08-13] MEDS: oxyCODONE-APAP 10-325MG 1 EACH TAB PO PRN ×2 (08:03→17:24)
[2021-08-13] MEDS: APIXABAN 5 MG TAB PO SCH ×2 (08:04→17:03)
[2021-08-13] MEDS: ASPIRIN 81 MG PO SCH (08:04)
[2021-08-13] MEDS: FUROSEMIDE 80 MG TAB PO SCH ×2 (08:04→17:25)
[2021-08-13] MEDS: PREGABALIN 75 MG CAP PO SCH ×2 (08:04→21:18)
[2021-08-13] MEDS: ONDANSETRON 4 MG TAB PO SCH ×2 (08:04→21:18)
[2021-08-13] MEDS: TIMOLOL 0.5% OPHTH DROPS 5 ML BTL RIGHT EYE SCH ×2 (08:05→21:18)
[2021-08-13 08:30] VITALS: BMI 39.9
[2021-08-13 10:56] LABS: Basophils # (A) 0.1 k/uL (0-0.2); Basophils % (A) 1 %; Eosinophils # (A) 0.5 k/uL (0-0.7); Eosinophils % (A) 5 %; HCT 34.8 % (39.0-53.0); HGB 10.4 gm/dL (13.0-17.5); Hypochromasia Slight; Lymphocytes # (A) 1.5 k/uL (1.0-4.8); Lymphocytes % (A) 15 %; MCH 28.6 pg (25.0-35.0); MCHC 29.9 g/dL (31.0-37.0); Mean Platelet Volume 10.8; Monocytes # (A) 0.3 k/uL (0-1.0); Monocytes % (A) 3 %; Neutrophils # (A) 7.7 k/uL (1.3-7.7); Neutrophils % (A) 75 %; Platelet Count 223 k/uL (150-450); RBC 3.64 m/uL (4.30-5.90); RDW 15.8 % (11.5-15.5); WBC 10.2 k/uL (3.8-10.6)
[2021-08-13 11:11] LABS: MCV 95.7 fL (80.0-100.0)
[2021-08-13 11:13] LABS: ALT <6 U/L (4-49); AST 19 U/L (17-59); African American GFR (CKD) 6 (>60 ml/min/1.73 sqM); Albumin 3.7 g/dL (3.5-5.0); Alkaline Phosphatase 151 U/L (38-126); Anion Gap 19 mmol/L; Blood Urea Nitrogen 78 mg/dL (9-20); Calcium 8.4 mg/dL (8.4-10.2); Carbon Dioxide 20 mmol/L (22-30); Chloride 93 mmol/L (98-107); Glucose 163 mg/dL (74-99); Non-African American GFR(CKD) 5 (>60 ml/min/1.73 sqM); Potassium 4.2 mmol/L (3.5-5.1); Sodium 132 mmol/L (137-145); Total Bilirubin 0.4 mg/dL (0.2-1.3); Total Protein 7.3 g/dL (6.3-8.2)
[2021-08-13 11:22] LABS: Glucose,Whole Blood 238 mg/dL (75-99)
[2021-08-13] MEDS: CALCIUM ACETATE 667 MG TAB PO SCH (12:36)
[2021-08-13] MEDS: DIALYVITE PO SCH (12:37)
--- NOTE | 2021-08-13 12:40 | P.PN ---
Subjective Patient is seen in follow-up for end-stage renal disease. Blood cultures persistently positive for staph aureus. No chest pain or shortness of breath. Vital signs are stable. General: The patient appeared well nourished and normally developed. HEENT: Head exam is unremarkable. LUNGS: Breath sounds decreased. HEART: Rate and Rhythm are regular. ABDOMEN: Soft, obese. EXTREMITITES: No edema. Objective - Vital Signs Vital signs: Vital Signs Temp 97.8 F 08/13/21 08:00 Pulse 78 08/13/21 08:00 Resp 16 08/13/21 08:00 BP 128/64 08/13/21 08:00 Pulse Ox 96 08/13/21 08:00 Intake & Output 08/12/21 08/13/21 08/13/21 18:59 06:59 18:59 Intake Total 580 120 Output Total 250 50 Balance 330 -50 120 Weight 95.7 kg Intake: Oral 580 120 Output: Urine 250 50 Other: # Voids 1 - Labs CBC & Chem 7: 08/13/21 10:32 08/13/21 10:32 Labs: Abnormal Lab Results - Last 24 Hours (Table) 08/12/21 08/12/21 08/12/21 Range/Units 16:51 18:52 19:46 RBC (4.30-5.90) m/uL Hgb (13.0-17.5) gm/dL Hct (39.0-53.0) % MCHC (31.0-37.0) g/dL RDW (11.5-15.5) % Sodium (137-145) mmol/L Chloride (98-107) mmol/L Carbon Dioxide (22-30) mmol/L BUN (9-20) mg/dL Creatinine (0.66-1.25) mg/dL Glucose (74-99) mg/dL POC Glucose (mg/dL) 589 H 581 H 483 H (75-99) mg/dL Alkaline Phosphatase (38-126) U/L 08/12/21 08/13/21 08/13/21 Range/Units 23:21 10:32 10:32 RBC 3.64 L (4.30-5.90) m/uL Hgb 10.4 L (13.0-17.5) gm/dL Hct 34.8 L (39.0-53.0) % MCHC 29.9 L (31.0-37.0) g/dL RDW 15.8 H (11.5-15.5) % Sodium 132 L (137-145) mmol/L Chloride 93 L (98-107) mmol/L Carbon Dioxide 20 L (22-30) mmol/L BUN 78 H (9-20) mg/dL Creatinine 10.58 H* (0.66-1.25) mg/dL Glucose 163 H (74-99) mg/dL POC Glucose (mg/dL) 198 H (75-99) mg/dL Alkaline Phosphatase 151 H (38-126) U/L 08/13/21 Range/Units 11:21 RBC (4.30-5.90) m/uL Hgb (13.0-17.5) gm/dL Hct (39.0-53.0) % MCHC (31.0-37.0) g/dL RDW (11.5-15.5) % Sodium (137-145) mmol/L Chloride (98-107) mmol/L Carbon Dioxide (22-30) mmol/L BUN (9-20) mg/dL Creatinine (0.66-1.25) mg/dL Glucose (74-99) mg/dL POC Glucose (mg/dL) 238 H (75-99) mg/dL Alkaline Phosphatase (38-126) U/L Microbiology - Last 24 Hours (Table) 08/07/21 11:15 Blood Culture - Preliminary Blood No Growth after 120 hours 08/09/21 09:13 Blood Culture Gram Stain - Preliminary Blood Blood Culture - Preliminary Presumptive Staph aureus Assessment and Plan Plan: Assessment: 1. End-stage renal disease maintained on home hemodialysis via permacath. 2. Staph aureus bacteremia. Unclear source. 3. Chronic kidney disease mineral bone disease maintained on PhosLo. 4. History of PE on anticoagulation. 5. Diabetes mellitus. Plan: Hemodialysis today. Discontinue permacath after dialysis today. Follow-up ANNABELLE and WBC scan. Case discussed with infectious disease.
--- NOTE | 2021-08-13 13:55 | P.GSCN ---
History of Present Illness Consult date: 08/13/21 Reason for Consult: Removal of hemodialysis catheter Requesting physician: Humberto Monge History of present illness: This is a 46-year-old who presented to the emergency department on 08/06/2021 for fever and weakness. He is been closely followed by infectious disease for positive blood cultures with STACEY date bacteremia. Patient has a history of end- stage renal disease on hemodialysis. He states he had his permacath replaced approximately 4 months ago at [facility] for bacteremia at that time. Permacath is currently in his right IJ. He denies any pain surrounding the site. He also has a history of pulmonary embolism who is on Eliquis last dose this morning. Infectious disease and nephrology believe the permacath may be the source of infection therefore consulted vascular surgery for removal. The patient has been afebrile this admission. His last blood culture on 08/09/2021 positive for staph aureus. WBC 10.2 hemoglobin 10.4. The patient currently denies any shortness of breath, chest pain, abdominal pain, nausea, vomiting, fevers or chills. He is due to undergo hemodialysis later today. Review of Systems A 14 point review of systems was completed and all pertinent positives and negatives as stated in the HPI. Past Medical History Past Medical History: Diabetes Mellitus, Dialysis, GERD/Reflux, Hyperlipidemia, Pulmonary Embolus (PE), Renal Disease, Seizure Disorder, Syncope Additional Past Medical History / Comment(s): constipation, anemia, peripheral vascular disease, diabetes mellitus on insulin pump for blood sugar control, previous history of massive pulmonary embolism - ECOS, hyperlipidemia, HD at home History of Any Multi-Drug Resistant Organisms: None Reported Additional Past Surgical History / Comment(s): tom cataract, peritoneal dialysis catheter rt side, ECOS 03/19/21, HERO HD site left chest, right forearm fistula - no longer active, left arm fistula - no longer active, right chest HD temp. HD cath., RBKA Past Anesthesia/Blood Transfusion Reactions: No Reported Reaction Past Psychological History: Anxiety, Depression Smoking Status: Never smoker Past Alcohol Use History: None Reported Past Drug Use History: None Reported - Past Family History Mother Family Medical History: Cancer Father Family Medical History: Dementia Medications and Allergies Home Medications Medication Instructions Recorded Confirmed Type Dialyvite 1 tab PO DAILY 01/31/17 08/06/21 History Ergocalciferol [Vitamin D2 50,000 unit PO Q14D 01/31/17 08/06/21 History (DRISDOL)] INSULIN LISPRO (For Pump) [humaLOG 0.01 units SQ-PUMP CONTINUOUS 01/31/17 08/06/21 History (For Pump)] Omeprazole [PriLOSEC] 20 mg PO BID 01/31/17 08/06/21 History Timolol [Betimol 0.5% Ophth Soln] 1 drop RIGHT EYE BID 01/31/17 08/06/21 History Furosemide [Lasix] 80 mg PO BID 10/01/20 08/06/21 History Pregabalin [Lyrica] 200 mg PO TID 10/01/20 08/06/21 History oxyCODONE-APAP 10-325MG [Percocet 1 tab PO Q6H 10/01/20 08/06/21 History 10-325 mg] Metoclopramide [Reglan] 5 mg PO AC-TID 03/16/21 08/06/21 History Midodrine HCl [ProAmatine] 10 mg PO TID 03/16/21 08/06/21 History Ondansetron HCl [Zofran] 4 mg PO BID 03/16/21 08/06/21 History Apixaban [Eliquis] 5 mg PO BID 05/14/21 08/06/21 History Calcium Acetate [Phoslo] 667 mg PO AC-LUNCH 05/14/21 08/06/21 History Aspirin EC [Ecotrin Low Dose] 81 mg PO DAILY 08/06/21 08/06/21 History Dulaglutide [Trulicity] 1.5 mg SQ WE 08/06/21 08/06/21 History Heparin 1000 Units/Ml 6,400 units SQ MOTUTHFRSA 08/06/21 08/06/21 History Sennosides/Docusate Sodium [Senna 1 tab PO BID PRN 08/06/21 08/06/21 History Plus 8.6-50 mg Tablet] Vilazodone HCl [Viibryd] 40 mg PO PC-SUPPER 08/06/21 08/06/21 History traZODone HCL [Desyrel] 100 mg PO HS 08/06/21 08/06/21 History Allergies Allergy/AdvReac Type Severity Reaction Status Date / Time No Known Allergies Allergy Verified 08/06/21 09:25 Surgical - Exam Vital Signs Temp Pulse Resp BP Pulse Ox 101.4 F H 102 H 21 83/51 83 L 08/06/21 07:48 08/06/21 07:48 08/06/21 07:48 08/06/21 07:48 08/06/21 07:48 General appearance: The patient is alert, oriented, in no acute distress. Obese. HET: Head is normocephalic and atraumatic. Neck: Supple without lymphadenopathy. Trachea midline. Heart: S1 S2. Regular rate and rhythm. Lungs: Clear to auscultation. Abdomen: Soft, nontender, nondistended. Extremities: Normal skin color and turgor. Palpable bilateral radial pulses. Left upper extremity graft with no palpable thrill. Neurological: No focal deficits. Strength and sensation are grossly intact. Results - Labs 08/13/21 10:32 08/13/21 10:32 Abnormal Lab Results - Last 24 Hours (Table) 08/12/21 08/12/21 08/12/21 Range/Units 16:51 18:52 19:46 RBC (4.30-5.90) m/uL Hgb (13.0-17.5) gm/dL Hct (39.0-53.0) % MCHC (31.0-37.0) g/dL RDW (11.5-15.5) % Sodium (137-145) mmol/L Chloride (98-107) mmol/L Carbon Dioxide (22-30) mmol/L BUN (9-20) mg/dL Creatinine (0.66-1.25) mg/dL Glucose (74-99) mg/dL POC Glucose (mg/dL) 589 H 581 H 483 H (75-99) mg/dL Alkaline Phosphatase (38-126) U/L 08/12/21 08/13/21 08/13/21 Range/Units 23:21 10:32 10:32 RBC 3.64 L (4.30-5.90) m/uL Hgb 10.4 L (13.0-17.5) gm/dL Hct 34.8 L (39.0-53.0) % MCHC 29.9 L (31.0-37.0) g/dL RDW 15.8 H (11.5-15.5) % Sodium 132 L (137-145) mmol/L Chloride 93 L (98-107) mmol/L Carbon Dioxide 20 L (22-30) mmol/L BUN 78 H (9-20) mg/dL Creatinine 10.58 H* (0.66-1.25) mg/dL Glucose 163 H (74-99) mg/dL POC Glucose (mg/dL) 198 H (75-99) mg/dL Alkaline Phosphatase 151 H (38-126) U/L 08/13/21 Range/Units 11:21 RBC (4.30-5.90) m/uL Hgb (13.0-17.5) gm/dL Hct (39.0-53.0) % MCHC (31.0-37.0) g/dL RDW (11.5-15.5) % Sodium (137-145) mmol/L Chloride (98-107) mmol/L Carbon Dioxide (22-30) mmol/L BUN (9-20) mg/dL Creatinine (0.66-1.25) mg/dL Glucose (74-99) mg/dL POC Glucose (mg/dL) 238 H (75-99) mg/dL Alkaline Phosphatase (38-126) U/L Microbiology - Last 24 Hours (Table) 08/07/21 11:15 Blood Culture - Preliminary Blood No Growth after 120 hours 08/09/21 09:13 Blood Culture Gram Stain - Preliminary Blood Blood Culture - Preliminary Presumptive Staph aureus Diabetes panel 08/13/21 Range/Units 10:32 Sodium 132 L (137-145) mmol/L Potassium 4.2 (3.5-5.1) mmol/L Chloride 93 L (98-107) mmol/L Carbon Dioxide 20 L (22-30) mmol/L BUN 78 H (9-20) mg/dL Creatinine 10.58 H* (0.66-1.25) mg/dL Glucose 163 H (74-99) mg/dL Calcium 8.4 (8.4-10.2) mg/dL AST 19 (17-59) U/L ALT <6 (4-49) U/L Alkaline Phosphatase 151 H (38-126) U/L Total Protein 7.3 (6.3-8.2) g/dL Albumin 3.7 (3.5-5.0) g/dL Calcium panel 08/13/21 Range/Units 10:32 Calcium 8.4 (8.4-10.2) mg/dL Albumin 3.7 (3.5-5.0) g/dL Pituitary panel 08/13/21 Range/Units 10:32 Sodium 132 L (137-145) mmol/L Potassium 4.2 (3.5-5.1) mmol/L Chloride 93 L (98-107) mmol/L Carbon Dioxide 20 L (22-30) mmol/L BUN 78 H (9-20) mg/dL Creatinine 10.58 H* (0.66-1.25) mg/dL Glucose 163 H (74-99) mg/dL Calcium 8.4 (8.4-10.2) mg/dL Adrenal panel 08/13/21 Range/Units 10:32 Sodium 132 L (137-145) mmol/L Potassium 4.2 (3.5-5.1) mmol/L Chloride 93 L (98-107) mmol/L Carbon Dioxide 20 L (22-30) mmol/L BUN 78 H (9-20) mg/dL Creatinine 10.58 H* (0.66-1.25) mg/dL Glucose 163 H (74-99) mg/dL Calcium 8.4 (8.4-10.2) mg/dL Total Bilirubin 0.4 (0.2-1.3) mg/dL AST 19 (17-59) U/L ALT <6 (4-49) U/L Alkaline Phosphatase 151 H (38-126) U/L Total Protein 7.3 (6.3-8.2) g/dL Albumin 3.7 (3.5-5.0) g/dL Assessment and Plan Assessment: 1. End-stage renal disease on hemodialysis 2. Bacteremia, MSSA 3. History of pulmonary embolism on Eliquis 4. Type 2 diabetes 5. History of peripheral vascular disease, status post right BKA Plan: 1. Continue IV antibiotics per recommendations from infectious disease 2. Continue hemodialysis per recommendations from nephrology 3. Hold Eliquis 4. Plan to discontinue hemodialysis catheter after hemodialysis, tomorrow morning The impression and plan of care has been dictated as directed. Dr. Turner I performed a history and examination of this patient, discussed the same with the dictator. I agree with the dictator's note ,documented as a scribe. Any additional findings or plans will be noted.
--- NOTE | 2021-08-13 15:51 | P.PN ---
Subjective Progress Note Date: 08/13/21 Principal diagnosis: CC: chills and rigors 46-year-old male with end-stage renal disease on dialysis at home 5 times weekly, diabetes mellitus type 2 on insulin pump, neuropathy, and multiple other comorbid conditions who presented to the ER secondary to chills and rigors. In the ER he underwent an extensive evaluation. His COVID test negative, white blood cell count was normal, chest x-ray showed no signs of pneumonia, but he was found to have a fever of 101.4. He was given a dose of Rocephin and Tylenol agents made for admission. Blood cultures positive for MSSA, off note patient just completed a greater than 6 week course of IV ABX for MSSA line infection with removal/line holiday/ and line reinsertion. Patient's last blood cultures from 08/09 1I still positive. Patient will have daily blood cultures done. Patient had ANNABELLE done on 08/10/2021 and the report is still pending. I saw the patient bedside and examined patient. Patient is denying any acute complaints. He denies any fever or chills. Patient is wondering when he can go home. I told patient that we will need to remove his dialysis catheter and then wait for the blood cultures to be negative for 48-72 hours before we can reinsert a dialysis catheter. I told patient that he will likely be in the hospital for at least 3 more days. Patient is scheduled for dialysis today and then tomorrow morning vascular surgery will remove the dialysis catheter. Objective - Vital Signs Vital signs: Vital Signs Temp 97.8 F 08/13/21 08:00 Pulse 78 08/13/21 08:00 Resp 16 08/13/21 08:00 BP 128/64 08/13/21 08:00 Pulse Ox 96 08/13/21 08:00 Intake & Output 08/12/21 08/13/21 08/13/21 18:59 06:59 18:59 Intake Total 580 120 Output Total 250 50 Balance 330 -50 120 Weight 95.7 kg Intake: Oral 580 120 Output: Urine 250 50 Other: # Voids 1 - Exam General examination - Alert and Oriented 3 in NAD Heart - + S1S2 no murmurs Lungs - Clear to auscultation, dialysis catheter in the left chest area Abdomen soft NT ND +ve BS Extremities - No edema SENIOR HR GENERALIST - Moving all 4 extremities spontaneously Psych - Calm and cooperative - Labs CBC & Chem 7: 08/13/21 10:32 08/13/21 10:32 Labs: Abnormal Lab Results - Last 24 Hours (Table) 08/12/21 08/12/21 08/12/21 Range/Units 16:51 18:52 19:46 RBC (4.30-5.90) m/uL Hgb (13.0-17.5) gm/dL Hct (39.0-53.0) % MCHC (31.0-37.0) g/dL RDW (11.5-15.5) % Sodium (137-145) mmol/L Chloride (98-107) mmol/L Carbon Dioxide (22-30) mmol/L BUN (9-20) mg/dL Creatinine (0.66-1.25) mg/dL Glucose (74-99) mg/dL POC Glucose (mg/dL) 589 H 581 H 483 H (75-99) mg/dL Alkaline Phosphatase (38-126) U/L 08/12/21 08/13/21 08/13/21 Range/Units 23:21 10:32 10:32 RBC 3.64 L (4.30-5.90) m/uL Hgb 10.4 L (13.0-17.5) gm/dL Hct 34.8 L (39.0-53.0) % MCHC 29.9 L (31.0-37.0) g/dL RDW 15.8 H (11.5-15.5) % Sodium 132 L (137-145) mmol/L Chloride 93 L (98-107) mmol/L Carbon Dioxide 20 L (22-30) mmol/L BUN 78 H (9-20) mg/dL Creatinine 10.58 H* (0.66-1.25) mg/dL Glucose 163 H (74-99) mg/dL POC Glucose (mg/dL) 198 H (75-99) mg/dL Alkaline Phosphatase 151 H (38-126) U/L 08/13/21 Range/Units 11:21 RBC (4.30-5.90) m/uL Hgb (13.0-17.5) gm/dL Hct (39.0-53.0) % MCHC (31.0-37.0) g/dL RDW (11.5-15.5) % Sodium (137-145) mmol/L Chloride (98-107) mmol/L Carbon Dioxide (22-30) mmol/L BUN (9-20) mg/dL Creatinine (0.66-1.25) mg/dL Glucose (74-99) mg/dL POC Glucose (mg/dL) 238 H (75-99) mg/dL Alkaline Phosphatase (38-126) U/L Microbiology - Last 24 Hours (Table) 08/09/21 09:13 Blood Culture Gram Stain - Final Blood Blood Culture - Final Staphylococcus aureus 08/07/21 11:15 Blood Culture - Final Blood No Growth after 144 hours Assessment and Plan Assessment: Sepsis with Recurrent MSSA bacteremia -Likely source of his dialysis catheter versus other source, ANNABELLE done, results pending -Patient's dialysis catheter will be removed tomorrow by vascular surgery. Patient is scheduled for HD today. -Continue cefazolin per infectious disease recommendation -Obtain daily blood cultures -Infectious disease on board. 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 DVT prophylaxis: eliquis CODE STATUS: Full code Discharge plan/next site of care: Pending hospital course workup, likely will go back to home. Expecting for 4 more days stay in the hospital.
[2021-08-13 16:56] LABS: Glucose,Whole Blood 154 mg/dL (75-99)
[2021-08-13] MEDS ORDERED: INSULIN ASPART (NovoLOG) 100 UNIT/ML VIAL SQ PRN (16:59)
[2021-08-13 18:09] LABS: Glucose,Whole Blood 133 mg/dL (75-99)
[2021-08-13] MEDS: NON FORMULARY DRUG (Vilazodone Hcl [Viibryd] 40 MG Tablet) PO SCH (18:50)
[2021-08-13 19:39] LABS: Glucose,Whole Blood 125 mg/dL (75-99)
[2021-08-13] MEDS: traZODone HCL 100 MG TAB PO SCH (21:18)
--- NOTE | 2021-08-14 00:26 | PN ---
PROGRESS NOTE DATE OF SERVICE: 08/13/2021 REASON FOR FOLLOWUP: MSSA bacteremia. INTERVAL HISTORY: The patient is afebrile, has been breathing comfortably. Blood culture from 08/09 is positive. Blood culture has been repeated today and cultures on 08/12; those are pending. The patient denies having any chest pain or shortness of breath or cough. No nausea, no diarrhea. PHYSICAL EXAMINATION: Blood pressure 125/68 with a pulse of 74, temperature 98. He is 98% on 3 L nasal cannula. General description is a middle-aged male lying in bed in no distress. RESPIRATORY SYSTEM: Unlabored breathing. Clear to auscultation anteriorly. HEART: S1, S2. Regular rate and rhythm. ABDOMEN: Soft. No tenderness. LABS: Hemoglobin is 10.4. White count BUN of 78, creatinine is 10.58. DIAGNOSTIC IMPRESSION AND PLAN: Patient with persistent MSSA bacteremia. We are waiting for the WBC scan to be finalized for possible source. Continue with the cefazolin and monitor his clinical course closely. MMODL / IJN: [id number] /
[2021-08-14 02:07] LABS: Glucose,Whole Blood 122 mg/dL (75-99)
[2021-08-14 05:59] LABS: Glucose,Whole Blood 148 mg/dL (75-99)
[2021-08-14] MEDS: INSULIN DETEMIR (LEVEMIR) 100 UNIT/ML SYR SQ SCH ×2 (06:49→20:23)
[2021-08-14] MEDS: INSULIN ASPART (NovoLOG) 100 UNIT/ML VIAL SQ SCH ×4 (06:49→20:23)
[2021-08-14] MEDS: MIDODRINE 5 MG TAB PO SCH ×4 (06:52→17:23)
[2021-08-14] MEDS: PANTOPRAZOLE 40 MG TABLET PO SCH (06:54)
[2021-08-14] MEDS: METOCLOPRAMIDE 5 MG TAB PO SCH ×3 (06:54→17:23)
[2021-08-14 07:40] LABS: Glucose,Whole Blood 187 mg/dL (75-99)
[2021-08-14 08:34] LABS: Anisocytosis Slight; Basophils # (A) 0.1 k/uL (0-0.2); Basophils % (A) 1 %; Eosinophils # (A) 0.4 k/uL (0-0.7); Eosinophils % (A) 4 %; HGB 9.9 gm/dL (13.0-17.5); Lymphocytes # (A) 1.2 k/uL (1.0-4.8); Lymphocytes % (A) 12 %; MCH 29.6 pg (25.0-35.0); MCHC 31.9 g/dL (31.0-37.0); MCV 92.8 fL (80.0-100.0); Mean Platelet Volume 10.8; Monocytes # (A) 0.3 k/uL (0-1.0); Monocytes % (A) 3 %; Neutrophils # (A) 7.9 k/uL (1.3-7.7); Neutrophils % (A) 79 %; Platelet Count 231 k/uL (150-450); RBC 3.34 m/uL (4.30-5.90); RDW 16.3 % (11.5-15.5); WBC 9.9 k/uL (3.8-10.6)
--- NOTE | 2021-08-14 08:35 | NM ---
EXAMINATION TYPE: NM WBC whole body DATE OF EXAM: 08/14/2021 COMPARISON: NONE HISTORY: Bacteremia TECHNIQUE: Following administration of 15.4 mCi Tc99m Ceretec. Images obtained 4 hours post injecti on. FINDINGS: Normal physiological tracer activity is noted in the liver and spleen and in the bone marrow of the a xial and appendicular skeleton. Mild lung uptake is likely within normal limits, there is no focal abnormal uptake. IMPRESSION: Normal white blood cell scan. No evidence for abnormal tracer activity.
[2021-08-14 08:55] LABS: C Reactive Protein 5.4 mg/dL (<1.0); Potassium 4.5 mmol/L (3.5-5.1)
[2021-08-14] MEDS: FUROSEMIDE 80 MG TAB PO SCH ×2 (11:01→17:20)
[2021-08-14] MEDS: ONDANSETRON 4 MG TAB PO SCH ×2 (11:01→20:29)
[2021-08-14] MEDS: ASPIRIN 81 MG PO SCH (11:01)
[2021-08-14] MEDS: PREGABALIN 75 MG CAP PO SCH ×2 (11:01→20:29)
[2021-08-14] MEDS: DIALYVITE PO SCH (11:02)
[2021-08-14] MEDS: oxyCODONE-APAP 10-325MG 1 EACH TAB PO PRN ×2 (11:02→20:47)
[2021-08-14] MEDS: TIMOLOL 0.5% OPHTH DROPS 5 ML BTL RIGHT EYE SCH ×2 (11:02→20:30)
[2021-08-14] MEDS: SENNOSIDES-DOCUSATE SODIUM 1 EACH TAB PO PRN ×2 (11:04→20:47)
--- NOTE | 2021-08-14 11:20 | P.PN ---
Subjective Patient is seen in follow-up for end-stage renal disease. Blood cultures persistently positive for staph aureus. No chest pain or shortness of breath. Tolerating dialysis well. Vital signs are stable. General: The patient appeared well nourished and normally developed. HEENT: Head exam is unremarkable. LUNGS: Breath sounds decreased. HEART: Rate and Rhythm are regular. ABDOMEN: Soft, obese. EXTREMITITES: No edema. Objective - Vital Signs Vital signs: Vital Signs Temp 97.7 F 08/14/21 11:08 Pulse 102 H 08/14/21 11:08 Resp 16 08/14/21 11:08 BP 92/54 08/14/21 11:00 Pulse Ox 99 08/14/21 11:08 Intake & Output 08/13/21 08/14/21 08/14/21 18:59 06:59 18:59 Intake Total 540 120 Output Total 2800 0 Balance -2260 120 Weight 95.7 kg 97.6 kg Intake: Oral 240 120 Hemodialysis 300 Output: Stool 0 Hemodialysis 2800 Other: Voiding Method Urinal Urinal # Voids 0 0 1 - Labs CBC & Chem 7: 08/14/21 07:26 08/14/21 07:20 Labs: Abnormal Lab Results - Last 24 Hours (Table) 08/08/21 08/13/21 08/13/21 Range/Units 16:32 10:32 11:21 RBC (4.30-5.90) m/uL Hgb (13.0-17.5) gm/dL Hct (39.0-53.0) % RDW (11.5-15.5) % Neutrophils # (1.3-7.7) k/uL Sodium 132 L (137-145) mmol/L Chloride 93 L (98-107) mmol/L Carbon Dioxide 20 L (22-30) mmol/L BUN 78 H (9-20) mg/dL Creatinine 10.58 H* (0.66-1.25) mg/dL Glucose 163 H (74-99) mg/dL POC Glucose (mg/dL) 238 H (75-99) mg/dL Calcium (8.4-10.2) mg/dL Alkaline Phosphatase 151 H (38-126) U/L C-Reactive Protein (<1.0) mg/dL Vitamin B6 <2 L (5-50) ug/L 08/13/21 08/13/21 08/13/21 Range/Units 16:55 18:07 19:38 RBC (4.30-5.90) m/uL Hgb (13.0-17.5) gm/dL Hct (39.0-53.0) % RDW (11.5-15.5) % Neutrophils # (1.3-7.7) k/uL Sodium (137-145) mmol/L Chloride (98-107) mmol/L Carbon Dioxide (22-30) mmol/L BUN (9-20) mg/dL Creatinine (0.66-1.25) mg/dL Glucose (74-99) mg/dL POC Glucose (mg/dL) 154 H 133 H 125 H (75-99) mg/dL Calcium (8.4-10.2) mg/dL Alkaline Phosphatase (38-126) U/L C-Reactive Protein (<1.0) mg/dL Vitamin B6 (5-50) ug/L 08/14/21 08/14/21 08/14/21 Range/Units 02:06 05:58 07:20 RBC (4.30-5.90) m/uL Hgb (13.0-17.5) gm/dL Hct (39.0-53.0) % RDW (11.5-15.5) % Neutrophils # (1.3-7.7) k/uL Sodium 132 L (137-145) mmol/L Chloride 97 L (98-107) mmol/L Carbon Dioxide 21 L (22-30) mmol/L BUN 54 H (9-20) mg/dL Creatinine 8.40 H* (0.66-1.25) mg/dL Glucose 164 H (74-99) mg/dL POC Glucose (mg/dL) 122 H 148 H (75-99) mg/dL Calcium 8.0 L (8.4-10.2) mg/dL Alkaline Phosphatase (38-126) U/L C-Reactive Protein 5.4 H (<1.0) mg/dL Vitamin B6 (5-50) ug/L 08/14/21 08/14/21 Range/Units 07:26 07:38 RBC 3.34 L (4.30-5.90) m/uL Hgb 9.9 L (13.0-17.5) gm/dL Hct 31.0 L (39.0-53.0) % RDW 16.3 H (11.5-15.5) % Neutrophils # 7.9 H (1.3-7.7) k/uL Sodium (137-145) mmol/L Chloride (98-107) mmol/L Carbon Dioxide (22-30) mmol/L BUN (9-20) mg/dL Creatinine (0.66-1.25) mg/dL Glucose (74-99) mg/dL POC Glucose (mg/dL) 187 H (75-99) mg/dL Calcium (8.4-10.2) mg/dL Alkaline Phosphatase (38-126) U/L C-Reactive Protein (<1.0) mg/dL Vitamin B6 (5-50) ug/L Microbiology - Last 24 Hours (Table) 08/13/21 10:30 Blood Culture Gram Stain - Preliminary Blood 08/13/21 10:32 Blood Culture - Final Blood 08/09/21 09:13 Blood Culture Gram Stain - Final Blood Blood Culture - Final Staphylococcus aureus 08/07/21 11:15 Blood Culture - Final Blood No Growth after 144 hours Assessment and Plan Plan: Assessment: 1. End-stage renal disease maintained on home hemodialysis via permacath. 2. Staph aureus bacteremia. Unclear source. WBC scan negative. 3. Chronic kidney disease mineral bone disease maintained on PhosLo. 4. History of PE on anticoagulation. 5. Diabetes mellitus. Plan: Currently seen was undergoing hemodialysis. Next treatment on . Okay to discontinue permacath from nephrology standpoint after dialysis today. Follow-up ANNABELLE.
[2021-08-14 11:38] LABS: Erythrocyte Sedimentation Rate 74 mm/hr (0-15)
[2021-08-14 11:51] LABS: Glucose,Whole Blood 125 mg/dL (75-99)
[2021-08-14] MEDS: CALCIUM ACETATE 667 MG TAB PO SCH (12:14)
[2021-08-14] MEDS: APIXABAN 5 MG TAB PO SCH ×2 (12:14→19:23)
--- NOTE | 2021-08-14 12:35 | P.PN ---
Subjective Progress Note Date: 08/14/21 Patient seen and examined sitting up at the bedside. He remains afebrile. WBC 9.9. Blood cultures show MSSA bacteremia. He had a WBC scan that shows normal white blood cell scan. No evidence for abnormal tracer activity. He is scheduled for hemodialysis this morning. Tunneled dialysis catheter has been working without any complications. Objective - Vital Signs Vital signs: Vital Signs Temp 98.1 F 08/14/21 04:12 Pulse 89 08/14/21 04:12 Resp 16 08/14/21 04:12 BP 126/69 08/14/21 06:51 Pulse Ox 96 08/14/21 04:12 Intake & Output 08/13/21 08/14/21 08/14/21 18:59 06:59 18:59 Intake Total 540 120 Output Total 2800 Balance -2260 120 Weight 95.7 kg 97.6 kg Intake: Oral 240 120 Hemodialysis 300 Output: Hemodialysis 2800 Other: Voiding Method Urinal # Voids 0 0 1 - Exam General appearance: The patient is alert, oriented, ears in no acute distress. HET: Head is normocephalic and atraumatic. Pupils are equal and reactive. Oropharynx is clear without lesions. Neck: Supple without lymphadenopathy. Trachea midline. Right IJ tunneled catheter intact, without any drainage or erythema. Abdomen: Soft, nontender, nondistended. Extremities: Normal skin color and turgor. Left upper extremities with graft, nonpalpable thrill. Neurological: No focal deficits. Strength and sensation are grossly intact. - Labs CBC & Chem 7: 08/14/21 07:26 08/14/21 07:20 Labs: Abnormal Lab Results - Last 24 Hours (Table) 08/08/21 08/13/21 08/13/21 Range/Units 16:32 10:32 10:32 RBC 3.64 L (4.30-5.90) m/uL Hgb 10.4 L (13.0-17.5) gm/dL Hct 34.8 L (39.0-53.0) % MCHC 29.9 L (31.0-37.0) g/dL RDW 15.8 H (11.5-15.5) % Neutrophils # (1.3-7.7) k/uL Sodium 132 L (137-145) mmol/L Chloride 93 L (98-107) mmol/L Carbon Dioxide 20 L (22-30) mmol/L BUN 78 H (9-20) mg/dL Creatinine 10.58 H* (0.66-1.25) mg/dL Glucose 163 H (74-99) mg/dL POC Glucose (mg/dL) (75-99) mg/dL Alkaline Phosphatase 151 H (38-126) U/L Vitamin B6 <2 L (5-50) ug/L 08/13/21 08/13/21 08/13/21 Range/Units 11:21 16:55 18:07 RBC (4.30-5.90) m/uL Hgb (13.0-17.5) gm/dL Hct (39.0-53.0) % MCHC (31.0-37.0) g/dL RDW (11.5-15.5) % Neutrophils # (1.3-7.7) k/uL Sodium (137-145) mmol/L Chloride (98-107) mmol/L Carbon Dioxide (22-30) mmol/L BUN (9-20) mg/dL Creatinine (0.66-1.25) mg/dL Glucose (74-99) mg/dL POC Glucose (mg/dL) 238 H 154 H 133 H (75-99) mg/dL Alkaline Phosphatase (38-126) U/L Vitamin B6 (5-50) ug/L 08/13/21 08/14/21 08/14/21 Range/Units 19:38 02:06 05:58 RBC (4.30-5.90) m/uL Hgb (13.0-17.5) gm/dL Hct (39.0-53.0) % MCHC (31.0-37.0) g/dL RDW (11.5-15.5) % Neutrophils # (1.3-7.7) k/uL Sodium (137-145) mmol/L Chloride (98-107) mmol/L Carbon Dioxide (22-30) mmol/L BUN (9-20) mg/dL Creatinine (0.66-1.25) mg/dL Glucose (74-99) mg/dL POC Glucose (mg/dL) 125 H 122 H 148 H (75-99) mg/dL Alkaline Phosphatase (38-126) U/L Vitamin B6 (5-50) ug/L 08/14/21 08/14/21 Range/Units 07:26 07:38 RBC 3.34 L (4.30-5.90) m/uL Hgb 9.9 L (13.0-17.5) gm/dL Hct 31.0 L (39.0-53.0) % MCHC (31.0-37.0) g/dL RDW 16.3 H (11.5-15.5) % Neutrophils # 7.9 H (1.3-7.7) k/uL Sodium (137-145) mmol/L Chloride (98-107) mmol/L Carbon Dioxide (22-30) mmol/L BUN (9-20) mg/dL Creatinine (0.66-1.25) mg/dL Glucose (74-99) mg/dL POC Glucose (mg/dL) 187 H (75-99) mg/dL Alkaline Phosphatase (38-126) U/L Vitamin B6 (5-50) ug/L Microbiology - Last 24 Hours (Table) 08/09/21 09:13 Blood Culture Gram Stain - Final Blood Blood Culture - Final Staphylococcus aureus 08/07/21 11:15 Blood Culture - Final Blood No Growth after 144 hours Assessment and Plan Assessment: 1. End-stage renal disease on hemodialysis 2. Bacteremia, MSSA 3. History of pulmonary embolism on Eliquis 4. Type 2 diabetes 5. History of peripheral vascular disease, status post right BKA Plan: 1. Continue IV antibiotics per recommendations from infectious disease 2. Continue hemodialysis per recommendations from nephrology 3. WBC scan negative, no plans on discontinuing hemodialysis catheter at this time The impression and plan of care has been dictated as directed. Dr. Turner I performed a history and examination of this patient, discussed the same with the dictator. I agree with the dictator's note ,documented as a scribe. Any additional findings or plans will be noted.
[2021-08-14 12:44] LABS: Glucose,Whole Blood 145 mg/dL (75-99)
[2021-08-14 16:59] LABS: Glucose,Whole Blood 210 mg/dL (75-99)
--- NOTE | 2021-08-14 17:19 | P.PN ---
Subjective Progress Note Date: 08/14/21 The patient was seen and examined at the bedside in 08/14. The patient denied any active complaints but asked when he would be cleared to go home. He denied chest discomfort, shortness of breath, fever, chills, cough, nausea, vomiting, abdominal pain, diarrhea. General: Non-toxic, in no acute distress, appears older than stated age, morbidly obese HEENT: NC/AT, anicteric sclerae, moist conjunctiva, no lid-lag, PERRLA Cardiovascular: S1/S2 wnl, no murmurs, rubs, or gallops Lungs: Clear to auscultation, normal respiratory effort, no accessory muscle use Abdominal: Soft, non-tender, non-distended, no guarding, rebound, or rigidity Skin: Warm, dry Extremities: No edema or contractures Psychiatric: Alert and oriented to person, place and time, appropriate affect Neuro: CN II-XII grossly intact, Strength 5/5 in all 4 extremities, Speech intact, Sensation to light touch grossly intact throughout Assessment/plan Sepsis secondary to MSSA bacteremia -Vascular surgery recommendations appreciated -WBC scan negative with no plans of discontinuing hemodialysis catheter by vascular surgery at this time -Continue IV antibiotics as per infectious disease: Cefazolin End-stage renal disease -Nephrology recommendations appreciated -Resume hemodialysis Type I DM -Patient using his own pump at this time History of pulmonary was a -Continue with Eliquis DVT prophylaxis -Eliquis Discussed with: Patient Anticipated discharge date: in am Anticipated discharge place: Home Objective - Vital Signs Vital signs: Vital Signs Temp 97.7 F 08/14/21 15:44 Pulse 86 08/14/21 15:44 Resp 19 08/14/21 15:44 BP 109/60 08/14/21 15:44 Pulse Ox 99 08/14/21 11:08 Intake & Output 08/13/21 08/14/21 08/14/21 18:59 06:59 18:59 Intake Total 540 470 Output Total 2800 1999 Balance -0 -1530 Weight 95.7 kg 97.6 kg Intake: Oral 240 120 Hemodialysis 300 350 Output: Stool 0 Hemodialysis 2800 2000 Other: Voiding Method Urinal Urinal # Voids 0 0 1 - Labs CBC & Chem 7: 08/14/21 07:26 08/14/21 07:20 Labs: Abnormal Lab Results - Last 24 Hours (Table) 08/08/21 08/13/21 08/13/21 Range/Units 16:32 18:07 19:38 RBC (4.30-5.90) m/uL Hgb (13.0-17.5) gm/dL Hct (39.0-53.0) % RDW (11.5-15.5) % Neutrophils # (1.3-7.7) k/uL ESR (0-15) mm/hr Sodium (137-145) mmol/L Chloride (98-107) mmol/L Carbon Dioxide (22-30) mmol/L BUN (9-20) mg/dL Creatinine (0.66-1.25) mg/dL Glucose (74-99) mg/dL POC Glucose (mg/dL) 133 H 125 H (75-99) mg/dL Calcium (8.4-10.2) mg/dL C-Reactive Protein (<1.0) mg/dL Vitamin B6 <2 L (5-50) ug/L 08/14/21 08/14/21 08/14/21 Range/Units 02:06 05:58 07:20 RBC (4.30-5.90) m/uL Hgb (13.0-17.5) gm/dL Hct (39.0-53.0) % RDW (11.5-15.5) % Neutrophils # (1.3-7.7) k/uL ESR (0-15) mm/hr Sodium 132 L (137-145) mmol/L Chloride 97 L (98-107) mmol/L Carbon Dioxide 21 L (22-30) mmol/L BUN 54 H (9-20) mg/dL Creatinine 8.40 H* (0.66-1.25) mg/dL Glucose 164 H (74-99) mg/dL POC Glucose (mg/dL) 122 H 148 H (75-99) mg/dL Calcium 8.0 L (8.4-10.2) mg/dL C-Reactive Protein 5.4 H (<1.0) mg/dL Vitamin B6 (5-50) ug/L 08/14/21 08/14/21 08/14/21 Range/Units 07:26 07:38 11:50 RBC 3.34 L (4.30-5.90) m/uL Hgb 9.9 L (13.0-17.5) gm/dL Hct 31.0 L (39.0-53.0) % RDW 16.3 H (11.5-15.5) % Neutrophils # 7.9 H (1.3-7.7) k/uL ESR 74 H (0-15) mm/hr Sodium (137-145) mmol/L Chloride (98-107) mmol/L Carbon Dioxide (22-30) mmol/L BUN (9-20) mg/dL Creatinine (0.66-1.25) mg/dL Glucose (74-99) mg/dL POC Glucose (mg/dL) 187 H 125 H (75-99) mg/dL Calcium (8.4-10.2) mg/dL C-Reactive Protein (<1.0) mg/dL Vitamin B6 (5-50) ug/L 08/14/21 08/14/21 Range/Units 12:43 16:58 RBC (4.30-5.90) m/uL Hgb (13.0-17.5) gm/dL Hct (39.0-53.0) % RDW (11.5-15.5) % Neutrophils # (1.3-7.7) k/uL ESR (0-15) mm/hr Sodium (137-145) mmol/L Chloride (98-107) mmol/L Carbon Dioxide (22-30) mmol/L BUN (9-20) mg/dL Creatinine (0.66-1.25) mg/dL Glucose (74-99) mg/dL POC Glucose (mg/dL) 145 H 210 H (75-99) mg/dL Calcium (8.4-10.2) mg/dL C-Reactive Protein (<1.0) mg/dL Vitamin B6 (5-50) ug/L Microbiology - Last 24 Hours (Table) 08/13/21 10:30 Blood Culture Gram Stain - Preliminary Blood Blood Culture - Preliminary Staphylococcus aureus 08/13/21 10:32 Blood Culture - Final Blood 08/09/21 09:13 Blood Culture Gram Stain - Final Blood Blood Culture - Final Staphylococcus aureus 08/07/21 11:15 Blood Culture - Final Blood No Growth after 144 hours
[2021-08-14] MEDS: INSPUCOR MISCELLANE PRN ×2 (17:20→20:31)
[2021-08-14] MEDS: NON FORMULARY DRUG (Vilazodone Hcl [Viibryd] 40 MG Tablet) PO SCH (17:23)
--- NOTE | 2021-08-14 19:02 | PN ---
PROGRESS NOTE DATE OF SERVICE: 08/14/2021 REASON FOR FOLLOW UP: MSSA bacteremia concerning for ( ) infection. INTERVAL HISTORY: The patient is afebrile. The patient is breathing comfortably. The patient denies having any chest pain, shortness or cough. No nausea, no vomiting. No abdominal pain, no diarrhea. PHYSICAL EXAMINATION: Blood pressure 109/52 with a pulse of ( ), temperature ( ). He is 99% on 2 L nasal cannula. General description is a middle-aged male lying in bed in no distress. Respiratory system: Unlabored breathing, clear to auscultation anteriorly. Heart S1, S2. Regular rate and rhythm. Abdomen soft, no tenderness. LABS: Blood cultures from yesterday are positive in this patient with persistent MSSA bacteremia concerning for endovascular source. ANNABELLE was negative. Dialysis will need to be discontinued as more likely the source. Will also get a CT of the chest, abdomen and pelvis. Cefazolin will be continued and daily blood work for maintenance of his bacteremia and monitor clinical course closely. MMODL / IJN: [id number] /
[2021-08-14 20:05] LABS: Glucose,Whole Blood 261 mg/dL (75-99)
[2021-08-14] MEDS: traZODone HCL 100 MG TAB PO SCH (20:29)
[2021-08-15 02:33] LABS: Glucose,Whole Blood 161 mg/dL (75-99)
[2021-08-15] MEDS: PANTOPRAZOLE 40 MG TABLET PO SCH (06:05)
[2021-08-15] MEDS: METOCLOPRAMIDE 5 MG TAB PO SCH ×3 (06:05→16:58)
[2021-08-15] MEDS: MIDODRINE 5 MG TAB PO SCH ×3 (06:05→16:56)
[2021-08-15] MEDS: oxyCODONE-APAP 10-325MG 1 EACH TAB PO PRN ×2 (06:07→16:58)
[2021-08-15 06:10] LABS: Glucose,Whole Blood 168 mg/dL (75-99)
[2021-08-15] MEDS: INSULIN ASPART (NovoLOG) 100 UNIT/ML VIAL SQ SCH (06:15)
[2021-08-15] MEDS: INSULIN DETEMIR (LEVEMIR) 100 UNIT/ML SYR SQ SCH ×2 (06:15→20:47)
[2021-08-15] MEDS ORDERED: INSPUCOR MISCELLANE PRN (06:18)
[2021-08-15] MEDS ORDERED: INSULIN ASPART (NovoLOG) 100 UNIT/ML VIAL SQ PRN (06:18)
[2021-08-15] MEDS: INSULIN PUMP MEAL BOLUS 1 UNIT MISC MISCELLANE SCH ×4 (07:22→20:46)
[2021-08-15 07:23] LABS: Glucose,Whole Blood 150 mg/dL (75-99)
[2021-08-15] MEDS: APIXABAN 5 MG TAB PO SCH ×5 (07:40→09:05)
[2021-08-15] MEDS: ASPIRIN 81 MG PO SCH (07:40)
[2021-08-15] MEDS: ONDANSETRON 4 MG TAB PO SCH ×2 (07:41→20:51)
[2021-08-15] MEDS: FUROSEMIDE 80 MG TAB PO SCH ×2 (07:41→16:58)
[2021-08-15] MEDS: PREGABALIN 75 MG CAP PO SCH ×2 (07:41→20:51)
[2021-08-15] MEDS: DIALYVITE PO SCH (07:41)
[2021-08-15] MEDS: TIMOLOL 0.5% OPHTH DROPS 5 ML BTL RIGHT EYE SCH ×2 (07:41→20:51)
[2021-08-15] MEDS ORDERED: INSULIN PUMP BASAL RATES 1 EACH MISC MISCELLANE PRN (08:00)
[2021-08-15 10:27] LABS: Basophils % (A) 1 %; Eosinophils # (A) 0.3 k/uL (0-0.7); Eosinophils % (A) 4 %; HCT 33.4 % (39.0-53.0); HGB 10.3 gm/dL (13.0-17.5); Hypochromasia Slight; Lymphocytes # (A) 1.5 k/uL (1.0-4.8); Lymphocytes % (A) 18 %; MCH 29.3 pg (25.0-35.0); MCHC 30.8 g/dL (31.0-37.0); MCV 95.1 fL (80.0-100.0); Mean Platelet Volume 11.1; Monocytes # (A) 0.3 k/uL (0-1.0); Monocytes % (A) 4 %; Neutrophils # (A) 5.7 k/uL (1.3-7.7); Neutrophils % (A) 71 %; Platelet Count 246 k/uL (150-450); RBC 3.51 m/uL (4.30-5.90); RDW 15.9 % (11.5-15.5)
[2021-08-15] MEDS: IOPAMIDOL CONTRAST (ORAL USE) VIAL PO PRN ×2 (10:44→11:44)
[2021-08-15 10:52] LABS: Calcium 8.9 mg/dL (8.4-10.2); Potassium 4.2 mmol/L (3.5-5.1)
[2021-08-15 11:29] LABS: Glucose,Whole Blood 172 mg/dL (75-99)
--- NOTE | 2021-08-15 11:31 | P.PN ---
Subjective Patient is seen in follow-up for end-stage renal disease. Blood cultures persistently positive for staph aureus. No chest pain or shortness of breath. No active complaints. Vital signs are stable. General: The patient appeared well nourished and normally developed. HEENT: Head exam is unremarkable. LUNGS: Breath sounds decreased. HEART: Rate and Rhythm are regular. ABDOMEN: Soft, obese. EXTREMITITES: No edema. Amputation noted. Objective - Vital Signs Vital signs: Vital Signs Temp 97.8 F 08/15/21 07:44 Pulse 75 08/15/21 08:00 Resp 18 08/15/21 08:00 BP 102/58 08/15/21 07:44 Pulse Ox 99 08/15/21 07:44 Intake & Output 08/14/21 08/15/21 08/15/21 18:59 06:59 18:59 Intake Total 470 120 Output Total 2000 0 Balance -1530 0 120 Weight 96.4 kg Intake: Oral 120 120 Hemodialysis 350 Output: Stool 0 0 Hemodialysis 2000 Other: Voiding Method Urinal Urinal Urinal # Voids 1 0 - Labs CBC & Chem 7: 08/15/21 10:15 08/15/21 10:15 Labs: Abnormal Lab Results - Last 24 Hours (Table) 08/14/21 08/14/21 08/14/21 Range/Units 07:26 11:50 12:43 RBC (4.30-5.90) m/uL Hgb (13.0-17.5) gm/dL Hct (39.0-53.0) % MCHC (31.0-37.0) g/dL RDW (11.5-15.5) % ESR 74 H (0-15) mm/hr Sodium (137-145) mmol/L Carbon Dioxide (22-30) mmol/L BUN (9-20) mg/dL Creatinine (0.66-1.25) mg/dL Glucose (74-99) mg/dL POC Glucose (mg/dL) 125 H 145 H (75-99) mg/dL 08/14/21 08/14/21 08/15/21 Range/Units 16:58 20:03 02:31 RBC (4.30-5.90) m/uL Hgb (13.0-17.5) gm/dL Hct (39.0-53.0) % MCHC (31.0-37.0) g/dL RDW (11.5-15.5) % ESR (0-15) mm/hr Sodium (137-145) mmol/L Carbon Dioxide (22-30) mmol/L BUN (9-20) mg/dL Creatinine (0.66-1.25) mg/dL Glucose (74-99) mg/dL POC Glucose (mg/dL) 210 H 261 H 161 H (75-99) mg/dL 08/15/21 08/15/21 08/15/21 Range/Units 06:08 07:22 10:15 RBC 3.51 L (4.30-5.90) m/uL Hgb 10.3 L (13.0-17.5) gm/dL Hct 33.4 L (39.0-53.0) % MCHC 30.8 L (31.0-37.0) g/dL RDW 15.9 H (11.5-15.5) % ESR (0-15) mm/hr Sodium (137-145) mmol/L Carbon Dioxide (22-30) mmol/L BUN (9-20) mg/dL Creatinine (0.66-1.25) mg/dL Glucose (74-99) mg/dL POC Glucose (mg/dL) 168 H 150 H (75-99) mg/dL 08/15/21 Range/Units 10:15 RBC (4.30-5.90) m/uL Hgb (13.0-17.5) gm/dL Hct (39.0-53.0) % MCHC (31.0-37.0) g/dL RDW (11.5-15.5) % ESR (0-15) mm/hr Sodium 132 L (137-145) mmol/L Carbon Dioxide 18 L (22-30) mmol/L BUN 49 H (9-20) mg/dL Creatinine 8.32 H* (0.66-1.25) mg/dL Glucose 127 H (74-99) mg/dL POC Glucose (mg/dL) (75-99) mg/dL Microbiology - Last 24 Hours (Table) 08/14/21 07:26 Blood Culture - Preliminary Blood No Growth after 24 hours 08/13/21 10:30 Blood Culture Gram Stain - Preliminary Blood Blood Culture - Preliminary Staphylococcus aureus 08/13/21 10:32 Blood Culture - Final Blood Assessment and Plan Plan: Assessment: 1. End-stage renal disease maintained on home hemodialysis via permacath. 2. Staph aureus bacteremia. Unclear source. WBC scan negative. 3. Chronic kidney disease mineral bone disease maintained on PhosLo. 4. History of PE on anticoagulation. 5. Diabetes mellitus. Plan: Hemodialysis tomorrow. Okay to discontinue permacath from nephrology standpoint - defer to infectious disease. Case also discussed with vascular surgery - patient has limited options for a new access. Follow-up CAT scan and ANNABELLE.
--- NOTE | 2021-08-15 11:43 | P.PN ---
Subjective Progress Note Date: 08/15/21 Patient seen and examined sitting up at the bedside. He remains afebrile. WBC 8.0. Blood cultures show MSSA bacteremia. He had a WBC scan that shows normal white blood cell scan. No evidence for abnormal tracer activity. Tunneled dialysis catheter has been working without any complications. He continues to be followed by nephrology and infectious disease. He remains on IV antibiotics Kefzol and vancomycin. He has a CT of the chest abdomen and pelvis ordered for this afternoon. He denies any abdominal pain, nausea, vomiting, shortness of breath or chest pain. He denies any fevers or chills. Objective - Vital Signs Vital signs: Vital Signs Temp 97.8 F 08/15/21 07:44 Pulse 75 08/15/21 08:00 Resp 18 08/15/21 08:00 BP 102/58 08/15/21 07:44 Pulse Ox 99 08/15/21 07:44 Intake & Output 08/14/21 08/15/21 08/15/21 18:59 06:59 18:59 Intake Total 470 120 Output Total 2000 0 Balance -1530 0 120 Weight 96.4 kg Intake: Oral 120 120 Hemodialysis 350 Output: Stool 0 0 Hemodialysis 2000 Other: Voiding Method Urinal Urinal Urinal # Voids 1 0 - Exam General appearance: The patient is alert, oriented, ears in no acute distress. HET: Head is normocephalic and atraumatic. Pupils are equal and reactive. Oropharynx is clear without lesions. Neck: Supple without lymphadenopathy. Trachea midline. Right IJ tunneled catheter intact, without any drainage or erythema. Abdomen: Soft, nontender, nondistended. Extremities: Normal skin color and turgor. Left upper extremities with graft, nonpalpable thrill. Neurological: No focal deficits. Strength and sensation are grossly intact. - Labs CBC & Chem 7: 08/15/21 10:15 08/15/21 10:15 Labs: Abnormal Lab Results - Last 24 Hours (Table) 08/14/21 08/14/21 08/14/21 Range/Units 07:26 11:50 12:43 ESR 74 H (0-15) mm/hr POC Glucose (mg/dL) 125 H 145 H (75-99) mg/dL 10/26/21 10/26/21 10/27/21 Range/Units 16:58 20:03 02:31 ESR (0-15) mm/hr POC Glucose (mg/dL) 210 H 261 H 161 H (75-99) mg/dL 08/15/21 08/15/21 Range/Units 06:08 07:22 ESR (0-15) mm/hr POC Glucose (mg/dL) 168 H 150 H (75-99) mg/dL Microbiology - Last 24 Hours (Table) 08/13/21 10:30 Blood Culture Gram Stain - Preliminary Blood Blood Culture - Preliminary Staphylococcus aureus 08/13/21 10:32 Blood Culture - Final Blood Assessment and Plan Assessment: 1. End-stage renal disease on hemodialysis 2. Bacteremia, MSSA 3. History of pulmonary embolism on Eliquis 4. Type 2 diabetes 5. History of peripheral vascular disease, status post right BKA Plan: This case was discussed with nephrology Dr. Monge regarding concern for removal of tunneled dialysis catheter due to lack of future access on this patient. Patient is hemodialysis dependent and there is concern and the current tunneled dialysis catheter is removed he may not have another access site. Concerns also reported to Dr. Arndt. Further outpatient workup discussed with patient to reevaluate possible access with graft in right upper extremity. 1. Continue IV antibiotics per recommendations from infectious disease 2. Continue hemodialysis per recommendations from nephrology 3. WBC scan negative, no plans on discontinuing hemodialysis catheter at this time 4. CT chest abdomen pelvis ordered and pending results The impression and plan of care has been dictated as directed. Dr. Pereira I performed a history and examination of this patient, discussed the same with the dictator. I agree with the dictator's note ,documented as a scribe. Any a dditional findings or plans will be noted.
[2021-08-15] MEDS: CALCIUM ACETATE 667 MG TAB PO SCH (11:45)
[2021-08-15] MEDS: NON FORMULARY DRUG (Dulaglutide [Trulicity] 1.5 MG/0.5 ML Each) SQ SCH (12:18)
[2021-08-15 13:13] LABS: Glucose,Whole Blood 168 mg/dL (75-99)
--- NOTE | 2021-08-15 13:51 | CT ---
EXAMINATION TYPE: CT ChestAbdPelvis w con DATE OF EXAM: 08/15/2021 COMPARISON: None HISTORY: Sepsis, MSSA Bacteremia CT DLP: 2515.1 mGycm CONTRAST: CT scan of the chest, abdomen and pelvis is performed with Oral Contrast and with IV Contrast, patien t injected with 150 mL of Isovue 300. CT Chest: LUNGS: Linear atelectasis left medial lung base. No pulmonary nodule or mass is detected. No pleural effusion or CT evidence of interstitial lung disease. MEDIASTINUM: Thoracic aorta is of normal caliber. The heart is not enlarged. No evidence for media stinal mass or adenopathy. HILAR STRUCTURES: No evidence for mass. No hilar adenopathy is appreciated. OTHER: No significant abnormality. CONTRAST CT ABDOMEN AND PELVIS FINDINGS: LIVER/GB: No calcified gallstones. No space occupying hepatic lesion. Biliary tree is of normal ca liber. PANCREAS: No inflammation. No distinct mass. Atrophic changes of the pancreas. SPLEEN: No splenic enlargement. No lesion seen. ADRENALS: No nodule. No thickening. KIDNEYS/BLADDER: No hydronephrosis. No nephrolithiasis. No distinct renal mass. The kidneys are al so mildly atrophic. BOWEL: Normal appendix. Normal bowel caliber. No inflammation. Moderate fecal stasis. GENITAL ORGANS: No gross abnormality. LYMPH NODES: No greater than 1cm abdominal or pelvic lymph nodes are appreciated. AORTA: No significant abnormality. OSSEOUS STRUCTURES: No significant abnormality is seen. OTHER: No significant additional abnormality is seen. IMPRESSION: 1. No significant abnormality to account for the patient's symptoms of bacteremia. No abscess seen. N o evidence for free air.
--- NOTE | 2021-08-15 15:13 | P.PN ---
Subjective Progress Note Date: 08/15/21 The patient is a 46-year-old male with a PMH of ESRD on hemodialysis, type II DM, peripheral neuropathy status post right BKA who presented to the emergency room with fever and chills. Patient was started on IV antibiotics and admitted for further management. Of note, prior to admission, the patient had recently completed a six-week course of IV antibiotics for an MSSA infection with dialysis catheter removal and reinsertion. Blood cultures from this admission grew MSSA. Infectious disease and vascular surgery were consulted. The patient underwent multiple CT abdomen and pelvis with contrast which revealed no abnormalities to account for the patient's bacteremia. Furthermore, WBC nuclear scan was also performed which failed to locate the source. Vascular surgery discussed the case with nephrology and recommended that the patient has limited sites for access and thereby they would abstain from removal of hemodialysis catheter at this time. ANNABELLE was performed and was unremarkable. General: Non-toxic, in no acute distress, appears older than stated age, morbidl y obese HEENT: NC/AT, anicteric sclerae, moist conjunctiva, no lid-lag, PERRLA Cardiovascular: S1/S2 wnl, no murmurs, rubs, or gallops Lungs: Clear to auscultation, normal respiratory effort, no accessory muscle use, right chest hemodialysis catheter in place without surrounding erythema or tenderness Abdominal: Soft, non-tender, non-distended, no guarding, rebound, or rigidity Skin: Warm, dry Extremities: No edema or contractures, left BKA Psychiatric: Alert and oriented to person, place and time, appropriate affect Neuro: CN II-XII grossly intact, Strength 5/5 in all 4 extremities, Speech intact, Sensation to light touch grossly intact throughout Assessment/plan MSSA bacteremia, sepsis resolved -Vascular surgery recommendations appreciated -WBC scan negative with no plans of discontinuing hemodialysis catheter by vascular surgery at this time -CT abdomen and pelvis with contrast also unremarkable -Continue IV antibiotics as per infectious disease: Cefazolin End-stage renal disease -Nephrology recommendations appreciated -Resume hemodialysis Type I DM -Patient using his own pump at this time History of pulmonary embolism -Continue with Eliquis DVT prophylaxis -Eliquis Discussed with: Patient Anticipated discharge date: 2-[address]: Home Objective - Vital Signs Vital signs: Vital Signs Temp 97.9 F 08/15/21 11:47 Pulse 86 08/15/21 11:47 Resp 19 08/15/21 11:47 BP 110/62 08/15/21 11:47 Pulse Ox 93 L 08/15/21 11:47 Intake & Output 08/14/21 08/15/21 08/15/21 18:59 06:59 18:59 Intake Total 470 536 Output Total 1999 0 Balance -1530 0 536 Weight 96.4 kg Intake: Oral 120 536 Hemodialysis 350 Output: Stool 0 0 Hemodialysis 1999 Other: Voiding Method Urinal Urinal Urinal # Voids 1 0 0 - Labs CBC & Chem 7: 08/15/21 10:15 08/15/21 10:15 Labs: Abnormal Lab Results - Last 24 Hours (Table) 08/14/21 08/14/21 08/15/21 Range/Units 16:58 20:03 02:31 RBC (4.30-5.90) m/uL Hgb (13.0-17.5) gm/dL Hct (39.0-53.0) % MCHC (31.0-37.0) g/dL RDW (11.5-15.5) % Sodium (137-145) mmol/L Carbon Dioxide (22-30) mmol/L BUN (9-20) mg/dL Creatinine (0.66-1.25) mg/dL Glucose (74-99) mg/dL POC Glucose (mg/dL) 210 H 261 H 161 H (75-99) mg/dL 08/15/21 08/15/21 08/15/21 Range/Units 06:08 07:22 10:15 RBC 3.51 L (4.30-5.90) m/uL Hgb 10.3 L (13.0-17.5) gm/dL Hct 33.4 L (39.0-53.0) % MCHC 30.8 L (31.0-37.0) g/dL RDW 15.9 H (11.5-15.5) % Sodium (137-145) mmol/L Carbon Dioxide (22-30) mmol/L BUN (9-20) mg/dL Creatinine (0.66-1.25) mg/dL Glucose (74-99) mg/dL POC Glucose (mg/dL) 168 H 150 H (75-99) mg/dL 08/15/21 08/15/21 08/15/21 Range/Units 10:15 11:26 13:12 RBC (4.30-5.90) m/uL Hgb (13.0-17.5) gm/dL Hct (39.0-53.0) % MCHC (31.0-37.0) g/dL RDW (11.5-15.5) % Sodium 132 L (137-145) mmol/L Carbon Dioxide 18 L (22-30) mmol/L BUN 49 H (9-20) mg/dL Creatinine 8.32 H* (0.66-1.25) mg/dL Glucose 127 H (74-99) mg/dL POC Glucose (mg/dL) 172 H 168 H (75-99) mg/dL Microbiology - Last 24 Hours (Table) 08/14/21 07:26 Blood Culture - Preliminary Blood No Growth after 24 hours 08/13/21 10:30 Blood Culture Gram Stain - Preliminary Blood Blood Culture - Preliminary Staphylococcus aureus
[2021-08-15 16:55] LABS: Glucose,Whole Blood 130 mg/dL (75-99)
--- NOTE | 2021-08-15 17:02 | PN ---
PROGRESS NOTE DATE OF SERVICE: 08/15/2021 REASON FOR FOLLOWUP: MSSA bacteremia. INTERVAL HISTORY: The patient is afebrile. The patient is breathing comfortably. The patient denies having any chest pain, shortness of breath or cough. No nausea, no vomiting. No abdominal pain or diarrhea. PHYSICAL EXAMINATION: Blood pressure is 110/62 with a pulse of 83, temperature 97.9. He is 93% on room air. General description is a middle-aged male lying in bed in no distress. RESPIRATORY SYSTEM: Unlabored breathing. Clear to auscultation anteriorly. HEART: S1, S2. Regular rate and rhythm. ABDOMEN: Soft. No tenderness. LABS: Blood cultures from 08/14 so far negative. DIAGNOSTIC IMPRESSION AND PLAN: Patient with MSSA bacteremia concerning for infection. We had a discussion with Vascular Surgery. Patient unfortunately does not have either or placement of another catheter. Patient is covered with cefazolin. Unfortunately we cannot add rifampin, as the patient is on Eliquis and giving . CT was negative. Blood cultures repeated daily to document clearance of bacteremia. Continue supportive care. MMODL / IJN: [id number] /
[2021-08-15] MEDS: NON FORMULARY DRUG (Vilazodone Hcl [Viibryd] 40 MG Tablet) PO SCH (17:03)
[2021-08-15 19:34] LABS: Glucose,Whole Blood 162 mg/dL (75-99)
[2021-08-15] MEDS: traZODone HCL 100 MG TAB PO SCH (20:51)
[2021-08-16 02:36] LABS: Glucose,Whole Blood 176 mg/dL (75-99)
[2021-08-16] MEDS: INSULIN DETEMIR (LEVEMIR) 100 UNIT/ML SYR SQ SCH (06:18)
[2021-08-16 06:21] LABS: Glucose,Whole Blood 115 mg/dL (75-99)
[2021-08-16] MEDS: MIDODRINE 5 MG TAB PO SCH ×3 (06:27→17:31)
[2021-08-16] MEDS: METOCLOPRAMIDE 5 MG TAB PO SCH ×4 (06:27→17:31)
[2021-08-16] MEDS: PANTOPRAZOLE 40 MG TABLET PO SCH (06:28)
[2021-08-16 07:37] LABS: Glucose,Whole Blood 88 mg/dL (75-99)
[2021-08-16] MEDS: DIALYVITE PO SCH (08:35)
[2021-08-16] MEDS: ONDANSETRON 4 MG TAB PO SCH ×2 (08:35→20:14)
[2021-08-16] MEDS: INSULIN PUMP MEAL BOLUS 1 UNIT MISC MISCELLANE SCH ×4 (08:35→20:24)
[2021-08-16] MEDS: ASPIRIN 81 MG PO SCH (08:35)
[2021-08-16] MEDS: FUROSEMIDE 80 MG TAB PO SCH ×2 (08:35→16:00)
[2021-08-16] MEDS: PREGABALIN 75 MG CAP PO SCH ×2 (08:35→20:14)
[2021-08-16] MEDS: APIXABAN 5 MG TAB PO SCH (08:35)
[2021-08-16] MEDS: TIMOLOL 0.5% OPHTH DROPS 5 ML BTL RIGHT EYE SCH ×2 (08:36→20:15)
[2021-08-16] MEDS: oxyCODONE-APAP 10-325MG 1 EACH TAB PO PRN ×3 (08:37→20:14)
--- NOTE | 2021-08-16 09:47 | P.PN ---
Subjective Patient is seen in follow-up for end-stage renal disease. Blood cultures persistently positive for staph aureus. No chest pain or shortness of breath. No active complaints. Vital signs are stable. General: The patient appeared well nourished and normally developed. HEENT: Head exam is unremarkable. LUNGS: Breath sounds decreased. HEART: Rate and Rhythm are regular. ABDOMEN: Soft, obese. EXTREMITITES: No edema. Amputation noted. Objective - Vital Signs Vital signs: Vital Signs Temp 98.4 F 08/16/21 08:43 Pulse 78 08/16/21 08:43 Resp 16 08/16/21 08:43 BP 117/72 08/16/21 08:43 Pulse Ox 94 L 08/16/21 08:43 Intake & Output 08/15/21 08/16/21 08/16/21 18:59 06:59 18:59 Intake Total 654 118 Output Total 100 Balance 654 -100 118 Weight 95.7 kg Intake: Oral 654 118 Output: Urine 100 Stool 0 Other: Voiding Method Urinal Urinal Urinal # Voids 0 - Labs CBC & Chem 7: 08/15/21 10:15 08/15/21 10:15 Labs: Abnormal Lab Results - Last 24 Hours (Table) 08/15/21 08/15/21 08/15/21 Range/Units 10:15 10:15 11:26 RBC 3.51 L (4.30-5.90) m/uL Hgb 10.3 L (13.0-17.5) gm/dL Hct 33.4 L (39.0-53.0) % MCHC 30.8 L (31.0-37.0) g/dL RDW 15.9 H (11.5-15.5) % Sodium 132 L (137-145) mmol/L Carbon Dioxide 18 L (22-30) mmol/L BUN 49 H (9-20) mg/dL Creatinine 8.32 H* (0.66-1.25) mg/dL Glucose 127 H (74-99) mg/dL POC Glucose (mg/dL) 172 H (75-99) mg/dL 08/15/21 08/15/21 08/15/21 Range/Units 13:12 16:52 19:32 RBC (4.30-5.90) m/uL Hgb (13.0-17.5) gm/dL Hct (39.0-53.0) % MCHC (31.0-37.0) g/dL RDW (11.5-15.5) % Sodium (137-145) mmol/L Carbon Dioxide (22-30) mmol/L BUN (9-20) mg/dL Creatinine (0.66-1.25) mg/dL Glucose (74-99) mg/dL POC Glucose (mg/dL) 168 H 130 H 162 H (75-99) mg/dL 08/16/21 08/16/21 Range/Units 02:33 06:18 RBC (4.30-5.90) m/uL Hgb (13.0-17.5) gm/dL Hct (39.0-53.0) % MCHC (31.0-37.0) g/dL RDW (11.5-15.5) % Sodium (137-145) mmol/L Carbon Dioxide (22-30) mmol/L BUN (9-20) mg/dL Creatinine (0.66-1.25) mg/dL Glucose (74-99) mg/dL POC Glucose (mg/dL) 176 H 115 H (75-99) mg/dL Microbiology - Last 24 Hours (Table) 08/14/21 07:26 Blood Culture Gram Stain - Preliminary Blood 08/14/21 07:26 Blood Culture - Final Blood 08/13/21 10:30 Blood Culture Gram Stain - Preliminary Blood Blood Culture - Preliminary Staphylococcus aureus Assessment and Plan Plan: Assessment: 1. End-stage renal disease maintained on home hemodialysis via permacath. 2. Staph aureus bacteremia. Unclear source. WBC scan negative. CT of the abdomen and pelvis negative. 3. Chronic kidney disease mineral bone disease maintained on PhosLo. 4. History of PE on anticoagulation. 5. Diabetes mellitus. Plan: Hemodialysis today. Okay to discontinue permacath from nephrology standpoint - defer to infectious disease. Case also discussed with vascular surgery - patient has limited options for a new access.
[2021-08-16 10:16] LABS: Glucose,Whole Blood 112 mg/dL (75-99)
[2021-08-16 11:54] LABS: Glucose,Whole Blood 114 mg/dL (75-99)
[2021-08-16] MEDS ORDERED: HEPARIN SODIUM 1,000 UN/ML (10ML VL) IV PRN (13:32)
[2021-08-16] MEDS ORDERED: HEPARIN SODIUM 1,000 UN/ML (10ML VL) IV ONE (13:32)
[2021-08-16] MEDS: HEPARIN SOD,PORK IN 0.45% NACL 25,000 UNIT in 0.45% NACL 1 250ML.BAG IV SCH (13:58)
[2021-08-16 14:13] LABS: INR 1.2 (<1.2); Prothrombin Time 12.2 sec (9.0-12.0)
[2021-08-16] MEDS: CALCIUM ACETATE 667 MG TAB PO SCH ×2 (15:07→16:00)
[2021-08-16 16:01] LABS: Glucose,Whole Blood 112 mg/dL (75-99)
--- NOTE | 2021-08-16 16:04 | US ---
EXAMINATION TYPE: US venous doppler duplex LE BI DATE OF EXAM: 08/16/2021 3:47 PM COMPARISON: NONE CLINICAL HISTORY: eval femoral/iliac vein for patency. End stage renal disease, order to assess paten cy of iliac and femoral vein for dialysis cath site, pt on heparin SIDE PERFORMED: Bilateral TECHNIQUE: The lower extremity deep venous system is examined utilizing real time linear array sonog dave with graded compression, doppler sonography and color-flow sonography. VESSELS IMAGED: Common Femoral Vein Deep Femoral Vein Greater Saphenous Vein * Femoral Vein Right Leg: Limited images done only to assess patency of iliac and femoral vessels. Patency seen wit h no abnormality noted Left Leg: Limited images done only to assess patency of iliac and femoral vessels. Patency seen with no abnormality noted Grayscale, color doppler, spectral doppler imaging performed of the deep veins of the bilateral lower extremities. There is normal color flow on images saved to PACS. IMPRESSION: Patent bilateral lower extremity veins.
[2021-08-16] MEDS: NON FORMULARY DRUG (Vilazodone Hcl [Viibryd] 40 MG Tablet) PO SCH (17:24)
[2021-08-16] MEDS: SENNOSIDES-DOCUSATE SODIUM 1 EACH TAB PO PRN (18:56)
--- NOTE | 2021-08-16 19:23 | PN ---
PROGRESS NOTE DATE OF SERVICE: 08/16/2021 REASON FOR FOLLOWUP: MSSA bacteremia secondary to PermCath infection. INTERVAL HISTORY: The patient is afebrile. The patient is currently breathing comfortably. Denies any chest pain or shortness of breath or cough. No nausea, no vomiting. No abdominal pain or diarrhea. He wants to go home. PHYSICAL EXAMINATION: Blood pressure 112/65, pulse of 68, temperature 97.6. He is 95% on room air. General description is a middle-aged male lying in bed in no distress. RESPIRATORY SYSTEM: Unlabored breathing. Decreased intensity of breath sounds. No wheeze. HEART: S1, S2. Regular rate and rhythm. ABDOMEN: Soft. No tenderness. LABS: 1.2. Blood cultures from 08/14 are coming back positive. DIAGNOSTIC IMPRESSION AND PLAN: Patient with persistent MSSA bacteremia in this patient who did have a ANNABELLE that was negative. WBC scan was negative. CT of the chest, abdomen and pelvis was negative. Likely source is PermaCath. Unfortunately we do not have any other access site for him, as per discussion with Vascular Surgery, even though it is not recommended to change this PermCath guidewire; however, no other option. That could be the only option at this point. Cefazolin will continue. Oral rifampin will be added. This was discussed in detail with the admitting physician. Continue with supportive care. SALONIL / ODESSAN: [id number] /
[2021-08-16] MEDS: rifAMPin 300 MG CAP PO SCH (20:13)
[2021-08-16] MEDS: traZODone HCL 100 MG TAB PO SCH (20:15)
--- NOTE | 2021-08-16 20:16 | P.PN ---
Subjective Progress Note Date: 08/16/21 Patient is a 46-year-old male with end-stage renal disease on dialysis at home 5 times weekly, diabetes mellitus type 2 on insulin pump, neuropathy, and multiple other comorbid conditions who presented to the ER secondary to chills and rigors. In the ER he underwent an extensive evaluation. His COVID test negative, white blood cell count was normal, chest x-ray showed no signs of pneumonia, but he was found to have a fever of 101.4. He was given a dose of Rocephin and Tylenol agents made for admission. Blood cultures positive for MSSA, of not patient just completed a greater than 6 week course of IV ABX for MSSA line infection with removal/line holiday/ and line reinsertion. He had dec reased responsiveness on 08/08 and ABD showed CO2 retention and he was started on BiPap. His mentation improved. He again was found to have persistent MSSA bacteremia. Underwent a tagged white blood cell scan which did not demonstrate any signs of infection, CT chest, abdomen, and pelvis also without signs of infection. Patient is a 46-year-old male with end-stage renal disease on dialysis at home 5 times weekly, diabetes mellitus type 2 on insulin pump, neuropathy, and multiple other comorbid conditions who presented to the ER secondary to chills and rigors. In the ER he underwent an extensive evaluation. His COVID test negative, white blood cell count was normal, chest x-ray showed no signs of pneumonia, but he was found to have a fever of 101.4. He was given a dose of Rocephin and Tylenol agents made for admission. Blood cultures positive for MSSA, of not patient just completed a greater than 6 week course of IV ABX for MSSA line infection with removal/line holiday/ and line reinsertion. He had decreased responsiveness on 08/08 and ABD showed CO2 retention and he was starte d on BiPap. Patient seen and examnined at bedside. He denies any nausea, vomiting, diarrhea. He is upset was still being in the hospital and currently nothing is being done. We discussed why he cannot go home and have outpatient dialysis with antibiotics at this time. General: ill appearing, no distress, appears at stated age Derm: warm, dry, multiple tatoos Head: atraumatic, normocephalic, symmetric Eyes: EOMI, no lid lag, anicteric sclera Mouth: no lip lesion, mucus membranes dry Cardiovascular: S1S2 reg, no murmur, positive posterior tibial pulse left lower extremity, Lungs: Course bs bilateral, no rhonchi, no rales , no accessory muscle use Abdominal: soft, nontender to palpation, no guarding, no appreciable organomegaly Ext: no gross muscle atrophy, no edema, no contractures Neuro: CN II-XI grossly intact, no focal neuro deficits Psych: Alert, oriented, appropriate affect Recurrent MSSA bacteremia ESRD with HD cath right chest well, on HD 5 times weekly at home - cefazolin, add rifampin - nephrology, ID, and vascular recs -TTE EF 55-60%, paradoxical septal wall motion - repeat cultures are positive from 08/14 - consider consult to vascular surgery Dr Sepulveda if cultures remains positive for line holiday DM 1 with isulin pump at home Neuropathy - continue with trulicity - insulin pump - follow BS - last A1C 5.9 - lyrica Anemia of end stage renal disease - stable - follow CBC Recent Pulmonary Embolism - eliquis discocntinued to allow for rifampin - start heparin gtt - likely home on coumadin if need rifampin, will also increas coumadin levels but can have assessed 3X weekly at HD will discuss with pharmacy Acute metabolic encephalopathy, resolved D/W Mc Monge, Dr. Pereira and Dr. Arndt -Vascular opiates as if he has possible areas for access in his groin. If so we'll proceed with dialysis catheter holiday for 2-3 days (nephrology in agreement) and then placement of tunneled catheter. If there is not adequate asked to assess in the groin will do a guidewire exchange of his right chest wall hemodialysis catheter. This is a suboptimal but the best option for the patient at this point in time. DVT prophylaxis: federicoqukrissy Discussed with: patient, nursing, Anticipated discharge date:undetermined Anticipated discharge place: undetermined A total of 35 minutes was spent on the care of this complex patient more than 50% of the time was spent in counseling and care coordination. Objective - Vital Signs Vital signs: Vital Signs Temp 97.4 F L 08/16/21 19:22 Pulse 75 08/16/21 19:22 Resp 18 08/16/21 19:22 BP 139/76 08/16/21 19:22 Pulse Ox 92 L 08/16/21 16:00 Intake & Output 08/16/21 08/16/21 08/17/21 06:59 18:59 06:59 Intake Total 596 Output Total 038 16 1275 Balance -100 546 -1999 Weight 95.7 kg Intake: Oral 596 Output: Urine 100 50 Stool 0 Hemodialysis 2000 Other: Voiding Method Urinal Urinal # Voids 0 - Labs CBC & Chem 7: 08/15/21 10:15 08/15/21 10:15 Labs: Abnormal Lab Results - Last 24 Hours (Table) 08/16/21 08/16/21 08/16/21 Range/Units 02:33 06:18 10:12 PT (9.0-12.0) sec INR (<1.2) APTT (22.0-30.0) sec POC Glucose (mg/dL) 176 H 115 H 112 H (75-99) mg/dL 08/16/21 08/16/21 08/16/21 Range/Units 11:46 13:52 15:59 PT 12.2 H (9.0-12.0) sec INR 1.2 H (<1.2) APTT 39.0 H (22.0-30.0) sec POC Glucose (mg/dL) 114 H 112 H (75-99) mg/dL Microbiology - Last 24 Hours (Table) 08/13/21 10:30 Blood Culture Gram Stain - Final Blood Blood Culture - Final Staphylococcus aureus 08/14/21 07:26 Blood Culture Gram Stain - Preliminary Blood 08/14/21 07:26 Blood Culture - Final Blood
[2021-08-16 20:35] LABS: Glucose,Whole Blood 269 mg/dL (75-99)
[2021-08-17 02:22] LABS: Glucose,Whole Blood 124 mg/dL (75-99)
[2021-08-17] MEDS: HEPARIN SOD,PORK IN 0.45% NACL 25,000 UNIT in 0.45% NACL 1 250ML.BAG IV SCH ×2 (04:45→20:12)
[2021-08-17 05:59] LABS: Glucose,Whole Blood 71 mg/dL (75-99)
[2021-08-17 07:24] LABS: Anisocytosis Slight; HCT 27.8 % (39.0-53.0); HGB 8.9 gm/dL (13.0-17.5); Hypochromasia Slight; MCH 29.7 pg (25.0-35.0); MCHC 32.1 g/dL (31.0-37.0); MCV 92.3 fL (80.0-100.0); Mean Platelet Volume 10.4; Platelet Count 285 k/uL (150-450); RBC 3.02 m/uL (4.30-5.90); RDW 16.7 % (11.5-15.5); WBC 8.5 k/uL (3.8-10.6)
[2021-08-17 07:52] LABS: Calcium 8.7 mg/dL (8.4-10.2); Potassium 4.3 mmol/L (3.5-5.1)
[2021-08-17 08:24] LABS: Glucose,Whole Blood 116 mg/dL (75-99)
[2021-08-17] MEDS: INSULIN PUMP MEAL BOLUS 1 UNIT MISC MISCELLANE SCH ×4 (08:26→22:15)
[2021-08-17] MEDS: PANTOPRAZOLE 40 MG TABLET PO SCH (08:32)
[2021-08-17] MEDS: PREGABALIN 75 MG CAP PO SCH ×2 (08:32→21:24)
[2021-08-17] MEDS: ONDANSETRON 4 MG TAB PO SCH ×2 (08:32→21:01)
[2021-08-17] MEDS: ASPIRIN 81 MG PO SCH (08:32)
[2021-08-17] MEDS: MIDODRINE 5 MG TAB PO SCH ×3 (08:32→18:28)
[2021-08-17] MEDS: FUROSEMIDE 80 MG TAB PO SCH ×2 (08:32→15:51)
[2021-08-17] MEDS: METOCLOPRAMIDE 5 MG TAB PO SCH ×3 (08:32→18:27)
[2021-08-17] MEDS: TIMOLOL 0.5% OPHTH DROPS 5 ML BTL RIGHT EYE SCH ×2 (08:33→21:23)
[2021-08-17] MEDS: oxyCODONE-APAP 10-325MG 1 EACH TAB PO PRN ×2 (08:33→18:32)
[2021-08-17] MEDS: rifAMPin 300 MG CAP PO SCH ×2 (08:33→21:24)
--- NOTE | 2021-08-17 10:39 | P.PN ---
Subjective Patient is seen in follow-up for end-stage renal disease. Blood cultures persistently positive for staph aureus. No chest pain or shortness of breath. No active complaints. Vital signs are stable. General: The patient appeared well nourished and normally developed. HEENT: Head exam is unremarkable. LUNGS: Breath sounds decreased. HEART: Rate and Rhythm are regular. ABDOMEN: Soft, obese. EXTREMITITES: No edema. Amputation noted. Objective - Vital Signs Vital signs: Vital Signs Temp 97.5 F L 08/17/21 08:00 Pulse 86 08/17/21 08:00 Resp 18 08/17/21 08:00 BP 105/67 08/17/21 08:00 Pulse Ox 94 L 08/17/21 08:00 Intake & Output 08/16/21 08/17/21 08/17/21 18:59 06:59 18:59 Intake Total 596 238.197 173.506 Output Total 50 2000 125 Balance 546 -1761.803 48.506 Weight 96.9 kg Intake: Intake, IV Titration 238.197 55.506 Amount Heparin Sod,Pork in 0.45% 238.197 55.506 NaCl 25,000 unit In 0.45 % NaCl 1 250ml.bag @ 18 UNITS/KG/HR 17.226 mls/hr IV .[id number] [facility] Rx#: [id number] Oral 596 118 Output: Urine 50 125 Stool 0 Hemodialysis 2000 Other: Voiding Method Urinal Urinal Urinal # Voids 0 2 - Labs CBC & Chem 7: 08/17/21 06:57 08/17/21 06:57 Labs: Abnormal Lab Results - Last 24 Hours (Table) 08/16/21 08/16/21 08/16/21 Range/Units 08:39 11:46 13:52 RBC (4.30-5.90) m/uL Hgb (13.0-17.5) gm/dL Hct (39.0-53.0) % RDW (11.5-15.5) % PT 12.2 H (9.0-12.0) sec INR 1.2 H (<1.2) APTT 39.0 H (22.0-30.0) sec Sodium (137-145) mmol/L BUN (9-20) mg/dL Creatinine (0.66-1.25) mg/dL POC Glucose (mg/dL) 114 H (75-99) mg/dL Hemoglobin A1c 7.2 H (4.0-6.0) % 08/16/21 08/16/21 08/16/21 Range/Units 15:59 20:22 20:51 RBC (4.30-5.90) m/uL Hgb (13.0-17.5) gm/dL Hct (39.0-53.0) % RDW (11.5-15.5) % PT (9.0-12.0) sec INR (<1.2) APTT >200.0 H* (22.0-30.0) sec Sodium (137-145) mmol/L BUN (9-20) mg/dL Creatinine (0.66-1.25) mg/dL POC Glucose (mg/dL) 112 H 269 H (75-99) mg/dL Hemoglobin A1c (4.0-6.0) % 08/17/21 08/17/21 08/17/21 Range/Units 02:01 05:58 06:57 RBC 3.02 L (4.30-5.90) m/uL Hgb 8.9 L (13.0-17.5) gm/dL Hct 27.8 L (39.0-53.0) % RDW 16.7 H (11.5-15.5) % PT (9.0-12.0) sec INR (<1.2) APTT (22.0-30.0) sec Sodium (137-145) mmol/L BUN (9-20) mg/dL Creatinine (0.66-1.25) mg/dL POC Glucose (mg/dL) 124 H 71 L (75-99) mg/dL Hemoglobin A1c (4.0-6.0) % 08/17/21 08/17/21 08/17/21 Range/Units 06:57 06:57 08:13 RBC (4.30-5.90) m/uL Hgb (13.0-17.5) gm/dL Hct (39.0-53.0) % RDW (11.5-15.5) % PT (9.0-12.0) sec INR (<1.2) APTT 121.8 H* (22.0-30.0) sec Sodium 135 L (137-145) mmol/L BUN 36 H (9-20) mg/dL Creatinine 7.04 H* (0.66-1.25) mg/dL POC Glucose (mg/dL) 116 H (75-99) mg/dL Hemoglobin A1c (4.0-6.0) % Microbiology - Last 24 Hours (Table) 08/13/21 10:30 Blood Culture Gram Stain - Final Blood Blood Culture - Final Staphylococcus aureus Assessment and Plan Plan: Assessment: 1. End-stage renal disease maintained on home hemodialysis via permacath. 2. Staph aureus bacteremia. Unclear source. WBC scan negative. CT of the abdomen and pelvis negative. 3. Chronic kidney disease mineral bone disease maintained on PhosLo. 4. History of PE on anticoagulation. 5. Diabetes mellitus. Plan: Hemodialysis today. Case discussed with infectious disease as well as primary team. Dialysis catheter to be removed after dialysis today or will undergo guidewire exchange if no other options for dialysis catheter placement.
[2021-08-17 12:08] LABS: Glucose,Whole Blood 122 mg/dL (75-99)
[2021-08-17] MEDS: CALCIUM ACETATE 667 MG TAB PO SCH (12:39)
[2021-08-17] MEDS: DIALYVITE PO SCH (12:40)
[2021-08-17 15:48] LABS: Glucose,Whole Blood 186 mg/dL (75-99)
[2021-08-17] MEDS ORDERED: LIDOCAINE 1% INJ 10MG/ML (20 ML MDV) ONE (16:15)
[2021-08-17 16:58] LABS: Glucose,Whole Blood 175 mg/dL (75-99)
--- NOTE | 2021-08-17 17:05 | PN ---
PROGRESS NOTE DATE OF SERVICE: 08/17/2021 REASON FOR FOLLOWUP: MSSA bacteremia secondary to PermCath infection. INTERVAL HISTORY: The patient is afebrile. The patient is breathing comfortably. The patient denies having any chest pain. No shortness of breath or cough. No vomiting. No abdominal pain, no diarrhea. PHYSICAL EXAMINATION: Blood pressure 106/56, pulse of 81, temperature 97.8. He is 94% on room air. General description is a middle-aged male up in the chair in no distress. Respiratory system: Unlabored breathing, decreased breath sounds, no wheeze. Heart S1, S2. Regular rate and rhythm. Abdomen: Soft, no tenderness. Extremities: No edema of the feet. LABS: Hemoglobin is 8, white count 8.5, creatinine 7.04. Blood culture from yesterday so far negative. DIAGNOSTIC IMPRESSION AND PLAN: Patient with MSSA bacteremia in this patient who did have extensive workup with no evidence of any deep focus. Culture remains to be positive concerning for the PermCath infection which will be discontinued today with daily blood cultures. Once negative, reinsertion of the PermCath. This was discussed with the admitting team. Continue supportive care. MMODL / IJN: [id number] /
--- NOTE | 2021-08-17 18:21 | P.PN ---
Subjective Progress Note Date: 08/17/21 (Delayed charting seen at 10:30) Principal diagnosis: altered mentation Patient is a 46-year-old male with end-stage renal disease on dialysis at home 5 times weekly, diabetes mellitus type 2 on insulin pump, neuropathy, and multiple other comorbid conditions who presented to the ER secondary to chills and rigors. In the ER he underwent an extensive evaluation. His COVID test negative, white blood cell count was normal, chest x-ray showed no signs of pneumonia, but he was found to have a fever of 101.4. He was given a dose of Rocephin and Tylenol agents made for admission. Blood cultures positive for MSSA, of not patient just completed a greater than 6 week course of IV ABX for MSSA line infection with removal/line holiday/ and line reinsertion. He had decreased responsiveness on 08/08 and ABG showed CO2 retention and he was started on BiPap. His mentation improved. He again was found to have persistent MSSA bacteremia. Underwent a tagged white blood cell scan which did not demonstrate any signs of infection, CT chest, abdomen, and pelvis also witho ut signs of infection. He was persistently bacteremic. We attempted to treat with cathater in place due to poor access, but patient remained bacteremic. He was taken off eliquis to start rifampim, and vascular surgery agreed to cath exchange. Patient seen and examined at bedside. He is excited to feel like he is finally making progress. No chest pain, SOB, nausea, or vomiting. General: ill appearing, no distress, appears at stated age Derm: warm, dry, multiple tattoos Head: atraumatic, normocephalic, symmetric Eyes: EOMI, no lid lag, anicteric sclera Mouth: no lip lesion, mucus membranes dry Cardiovascular: S1S2 reg, no murmur, positive posterior tibial pulse left lower extremity, Lungs: Course bs bilateral, no rhonchi, no rales , no accessory muscle use Abdominal: soft, nontender to palpation, no guarding, no appreciable organomegaly Ext: no gross muscle atrophy, no edema, no contractures Neuro: CN II-XI grossly intact, no focal neuro deficits Psych: Alert, oriented, appropriate affect Recurrent MSSA bacteremia ESRD with HD cath right chest well, on HD 5 times weekly at home - cefazolin, rifampin - nephrology, ID, and vascular recs -TTE EF 55-60%, paradoxical septal wall motion - repeat cultures are positive from 08/14, cultures 08/16 negative for 24 hours. - D/W fadia HD cath removal today, then line holiday in over the weekend, will reasses HD needs on friday to see if needs reinsertion friday or Friday of next week. Patient aware and will limit fluid intake and monitor K+ intake in food. DM 1 with insulin pump at home Neuropathy - continue with trulicity - insulin pump - follow BS - last A1C 5.9 - lyrica Anemia of end stage renal disease - stable - follow CBC Recent Pulmonary Embolism - eliquis discontinued to allow for rifampin - heparin gtt - likely home on coumadin if need rifampin, will also increase coumadin levels but can have assessed 3X weekly at HD will discuss with pharmacy Acute metabolic encephalopathy, resolved D/W Dr. Monge, Dr. Pereira and Dr. Arndt -Vascular opiates as if he has possible areas for access in his groin. If so we'll proceed with dialysis catheter holiday for 2-3 days (nephrology in agreement) and then placement of tunneled catheter. If there is not adequate asked to assess in the groin will do a guidewire exchange of his right chest wall hemodialysis catheter. This is a suboptimal but the best option for the patient at this point in time. DVT prophylaxis: reid Discussed with: patient, nursing, Anticipated discharge date:undetermined Anticipated discharge place: undetermined A total of 35 minutes was spent on the care of this complex patient more than 50% of the time was spent in counseling and care coordination. Active Medications Acetaminophen (Acetaminophen Tab 325 Mg Tab) 650 mg PO Q6HR PRN PRN Reason: Mild Pain or Fever > 100.5 Aspirin (Aspirin 81 Mg) 81 mg PO DAILY [facility] Last Admin: 08/17/21 08:32 Dose: 81 mg Documented by: Calcium Acetate (Calcium Acetate 667 Mg Tab) 667 mg PO AC-LUNCH [facility] Last Admin: 08/17/21 12:39 Dose: 667 mg Documented by: Famotidine (Famotidine 20 Mg Tab) 20 mg PO BID PRN PRN Reason: Indigestion Last Admin: 08/11/21 01:14 Dose: 20 mg Documented by: Furosemide (Furosemide 80 Mg Tab) 80 mg PO BID@0900,1600 [facility] Last Admin: 08/17/21 15:51 Dose: 80 mg Documented by: Heparin Sodium (Porcine) (Heparin Sodium 1,000 Un/Ml (10ml Vl)) 0 unit IV PER PROTOCOL PRN; Protocol PRN Reason: Low PTT Cefazolin Sodium 1,000 mg/ (Sodium Chloride) 50 mls @ 100 mls/hr IVPB Q24H [facility] Last Admin: 08/16/21 20:15 Dose: 100 mls/hr Documented by: Heparin Sodium/Sodium Chloride (25,000 unit/ Sodium Chloride) 250 mls @ 17.226 mls/hr IV .[id number] [facility]; Protocol Last Titration: 08/17/21 08:37 Dose: 0 units/kg/hr, 0 mls/hr Documented by: Insulin Aspart (Insulin Aspart (Novolog) 100 Unit/Ml Vial) 0 unit SQ DAILY PRN PRN Reason: Insulin Pump Replacement Metoclopramide HCl (Metoclopramide 5 Mg Tab) 5 mg PO AC-TID [facility] Last Admin: 08/17/21 12:39 Dose: 5 mg Documented by: Midodrine (Midodrine 5 Mg Tab) 10 mg PO ONCE PRN PRN Reason: Hypotension Last Admin: 08/16/21 13:07 Dose: 10 mg Documented by: Midodrine (Midodrine 5 Mg Tab) 10 mg PO AC-TID [facility] Last Admin: 08/17/21 12:39 Dose: 10 mg Documented by: Miscellaneous Information (Insulin Pump Basal Rates 1 Each Misc) 1 each MISCELLANE Q6HR PRN; Protocol PRN Reason: Blood Sugar - High Miscellaneous Information (Insulin Pump Meal Bolus 1 Unit Misc) 0 unit MISCELLANE ACHS [facility]; Protocol Last Admin: 08/17/21 12:41 Dose: 2.9 unit Documented by: Miscellaneous Information (Insulin Pump Correction Bolus 1 Unit Misc) 0 unit MISCELLANE ACHS PRN; Protocol PRN Reason: Blood Sugar - High Naloxone HCl (Naloxone 0.4 Mg/Ml 1 Ml Vial) 0.2 mg IV Q2M PRN PRN Reason: Opioid Reversal Non-Formulary Medication (Vilazodone Hcl [Viibryd]) 40 mg PO PC-SUPPER [facility] Last Admin: 08/16/21 17:24 Dose: Not Given Documented by: Non-Formulary Medication (Dulaglutide [Trulicity]) 1.5 mg SQ WE [facility] Last Admin: 08/15/21 12:18 Dose: Not Given Documented by: Non-Formulary Medication (Dialyvite) 1 tab PO DAILY [facility] Last Admin: 08/17/21 12:40 Dose: 1 tab Documented by: Ondansetron HCl (Ondansetron 4 Mg Tab) 4 mg PO BID [facility] Last Admin: 08/17/21 08:32 Dose: 4 mg Documented by: Ondansetron HCl (Ondansetron 4 Mg/2 Ml Vial) 4 mg IVP Q8HR PRN PRN Reason: Nausea And Vomiting Oxycodone/Acetaminophen (Oxycodone-Apap 10-325mg 1 Each Tab) 1 each PO Q6HR PRN PRN Reason: Breakthrough Pain Last Admin: 08/17/21 08:33 Dose: 1 each Documented by: Pantoprazole Sodium (Pantoprazole 40 Mg Tablet) 40 mg PO DAILY@0730 [facility] Last Admin: 08/17/21 08:32 Dose: 40 mg Documented by: Pregabalin (Pregabalin 75 Mg Cap) 75 mg PO BID [facility] Last Admin: 08/17/21 08:32 Dose: 75 mg Documented by: Rifampin (Rifampin 300 Mg Cap) 300 mg PO BID [facility] Last Admin: 08/17/21 08:33 Dose: 300 mg Documented by: Senna/Docusate Sodium (Sennosides-Docusate Sodium 1 Each Tab) 1 each PO BID PRN PRN Reason: Constipation Last Admin: 08/16/21 18:56 Dose: 1 each Documented by: Timolol Maleate (Timolol 0.5% Ophth Drops 5 Ml Btl) 1 drops RIGHT EYE BID [facility] Last Admin: 08/17/21 08:33 Dose: 1 drops Documented by: Trazodone HCl (Trazodone Hcl 100 Mg Tab) 100 mg PO HS [facility] Last Admin: 08/16/21 20:15 Dose: 100 mg Documented by: Objective - Vital Signs Vital signs: Vital Signs Temp 97.8 F 08/17/21 12:00 Pulse 79 08/17/21 15:55 Resp 17 08/17/21 15:55 BP 106/66 08/17/21 12:00 Pulse Ox 94 L 08/17/21 12:00 Intake & Output 08/16/21 08/17/21 08/17/21 18:59 06:59 18:59 Intake Total 596 238.197 573.506 Output Total 50 1999 2124 Balance 546 -1761.803 -1551.494 Weight 96.9 kg Intake: Intake, IV Titration 238.197 55.506 Amount Heparin Sod,Pork in 0.45% 238.197 55.506 NaCl 25,000 unit In 0.45 % NaCl 1 250ml.bag @ 18 UNITS/KG/HR 17.226 mls/hr IV .[id number] [facility] Rx#: [id number] Oral 596 518 Output: Urine 50 125 Stool 0 0 Hemodialysis 1999 1999 Other: Voiding Method Urinal Urinal Urinal # Voids 0 2 # Bowel Movements 1 - Labs CBC & Chem 7: 08/17/21 06:57 08/17/21 06:57 Labs: Abnormal Lab Results - Last 24 Hours (Table) 08/16/21 08/16/21 08/16/21 Range/Units 08:39 20:22 20:51 RBC (4.30-5.90) m/uL Hgb (13.0-17.5) gm/dL Hct (39.0-53.0) % RDW (11.5-15.5) % APTT >200.0 H* (22.0-30.0) sec Sodium (137-145) mmol/L BUN (9-20) mg/dL Creatinine (0.66-1.25) mg/dL POC Glucose (mg/dL) 269 H (75-99) mg/dL Hemoglobin A1c 7.2 H (4.0-6.0) % 08/17/21 08/17/21 08/17/21 Range/Units 02:01 05:58 06:57 RBC 3.02 L (4.30-5.90) m/uL Hgb 8.9 L (13.0-17.5) gm/dL Hct 27.8 L (39.0-53.0) % RDW 16.7 H (11.5-15.5) % APTT (22.0-30.0) sec Sodium (137-145) mmol/L BUN (9-20) mg/dL Creatinine (0.66-1.25) mg/dL POC Glucose (mg/dL) 124 H 71 L (75-99) mg/dL Hemoglobin A1c (4.0-6.0) % 08/17/21 08/17/21 08/17/21 Range/Units 06:57 06:57 08:13 RBC (4.30-5.90) m/uL Hgb (13.0-17.5) gm/dL Hct (39.0-53.0) % RDW (11.5-15.5) % APTT 121.8 H* (22.0-30.0) sec Sodium 135 L (137-145) mmol/L BUN 36 H (9-20) mg/dL Creatinine 7.04 H* (0.66-1.25) mg/dL POC Glucose (mg/dL) 116 H (75-99) mg/dL Hemoglobin A1c (4.0-6.0) % 08/17/21 08/17/21 08/17/21 Range/Units 11:55 15:47 16:51 RBC (4.30-5.90) m/uL Hgb (13.0-17.5) gm/dL Hct (39.0-53.0) % RDW (11.5-15.5) % APTT (22.0-30.0) sec Sodium (137-145) mmol/L BUN (9-20) mg/dL Creatinine (0.66-1.25) mg/dL POC Glucose (mg/dL) 122 H 186 H 175 H (75-99) mg/dL Hemoglobin A1c (4.0-6.0) % Microbiology - Last 24 Hours (Table) 08/16/21 08:39 Blood Culture - Preliminary Blood No Growth after 24 hours 08/13/21 10:30 Blood Culture Gram Stain - Final Blood Blood Culture - Final Staphylococcus aureus
[2021-08-17] MEDS: NON FORMULARY DRUG (Vilazodone Hcl [Viibryd] 40 MG Tablet) PO SCH (18:28)
--- NOTE | 2021-08-17 19:02 | P.OP ---
Date of Procedure: 08/17/21 Description of Procedure: Preoperative diagnosis: End-stage disease, bacteremia persistent Postoperative diagnosis: Same Procedure: [Removal of tunneled dialysis catheter] Surgeon: Oumou Pereira D.O. EBL: [10 mL] IV fluids: [None] Urine output: [None] Drains: [None] Complications: [None immediately apparent] Condition: [Stable, tolerated procedure well] Operative indication and findings: [Patient is a 46-year-old male with end-stage renal disease who has a persistent bacteremia without a source. He does have a permacath and has been recommended to undergo removal. He has difficult access therefore this was not immediately performed. A workup was performed to evaluate for other access sites. He is found to have patent iliofemoral system per ultrasound bilaterally therefore we can go forward with removal of the catheter.] Procedure in detail: [The right neck was prepped and draped in usual sterile fashion. A preprocedure timeout was performed. One percent lidocaine was infiltrated into the surrounding tissue of the catheter. Gentle traction was performed and blunt dissection was performed of the proximal area close to the cuff. The cuff itself was relatively high at the level of the clavicle area after multiple attempts to break the na-catheter tissue free, this was unsuccessful therefore the area over the cuff was anesthetized and an incision was made. It was dissected down to the cuff. The cuff was grasped and dissected free from its surrounding tissue. At that point the catheter was able to be removed freely and pressure was held at the internal jugular for 15 minutes. The incision site was reapproximated with interrupted sutures of 3-0 nylon. The catheter exit site was left open to drain. A dressing was placed. There is no evidence of hematoma. The patient tolerated the procedure well]
[2021-08-17 20:06] LABS: Glucose,Whole Blood 149 mg/dL (75-99)
[2021-08-17] MEDS: traZODone HCL 100 MG TAB PO SCH (21:24)
[2021-08-18] MEDS: oxyCODONE-APAP 10-325MG 1 EACH TAB PO PRN ×3 (00:01→17:06)
[2021-08-18 02:07] LABS: Glucose,Whole Blood 139 mg/dL (75-99)
[2021-08-18 05:50] LABS: Glucose,Whole Blood 95 mg/dL (75-99)
[2021-08-18 06:08] LABS: Anisocytosis Slight; HGB 9.3 gm/dL (13.0-17.5); Hypochromasia Marked; MCH 29.5 pg (25.0-35.0); MCHC 28.1 g/dL (31.0-37.0); Macrocytosis Moderate; Mean Platelet Volume 10.3; Platelet Count 267 k/uL (150-450); RBC 3.14 m/uL (4.30-5.90); RDW 16.7 % (11.5-15.5); WBC 6.6 k/uL (3.8-10.6)
[2021-08-18 06:09] LABS: MCV 105.2 fL (80.0-100.0)
[2021-08-18 06:15] LABS: Calcium 8.9 mg/dL (8.4-10.2); Potassium 4.3 mmol/L (3.5-5.1)
[2021-08-18] MEDS: INSULIN PUMP MEAL BOLUS 1 UNIT MISC MISCELLANE SCH ×4 (06:33→20:27)
[2021-08-18] MEDS: PANTOPRAZOLE 40 MG TABLET PO SCH (06:34)
[2021-08-18] MEDS: METOCLOPRAMIDE 5 MG TAB PO SCH ×4 (06:34→17:02)
[2021-08-18 07:23] LABS: Glucose,Whole Blood 80 mg/dL (75-99)
[2021-08-18] MEDS: HEPARIN SOD,PORK IN 0.45% NACL 25,000 UNIT in 0.45% NACL 1 250ML.BAG IV SCH (08:17)
[2021-08-18] MEDS: FUROSEMIDE 80 MG TAB PO SCH ×2 (08:18→15:56)
[2021-08-18] MEDS: MIDODRINE 5 MG TAB PO SCH ×3 (08:18→17:00)
[2021-08-18] MEDS: ONDANSETRON 4 MG TAB PO SCH ×2 (08:18→21:03)
[2021-08-18] MEDS: PREGABALIN 75 MG CAP PO SCH ×2 (08:18→21:03)
[2021-08-18] MEDS: ASPIRIN 81 MG PO SCH (08:18)
[2021-08-18] MEDS: rifAMPin 300 MG CAP PO SCH ×2 (08:18→21:03)
[2021-08-18] MEDS: TIMOLOL 0.5% OPHTH DROPS 5 ML BTL RIGHT EYE SCH ×2 (08:19→21:03)
[2021-08-18] MEDS: DIALYVITE PO SCH (08:19)
--- NOTE | 2021-08-18 10:37 | P.PN ---
Subjective Progress Note Date: 08/18/21 Principal diagnosis: Is a 46-year-old male with end-stage renal failure on home hemodialysis with a permacath on the right. Came in with fever and had staph aureus bacteremia. His permacath was removed yesterday after dialysis He is afebrile feeling fairly good as minimal urine output Previously had a methicillin sensitive staph aureus bacteremia in April 2021 Is known with diabetes, BKA on the right, seizure disorder, history of pulmonary embolism He also has failed PD catheter and multiple AV fistulas and grafts. Objective - Vital Signs Vital signs: Vital Signs Temp 98.7 F 08/18/21 08:15 Pulse 86 08/18/21 08:15 Resp 18 08/18/21 08:15 BP 103/70 08/18/21 08:15 Pulse Ox 94 L 08/18/21 08:15 Intake & Output 08/17/21 08/18/21 08/18/21 18:59 06:59 18:59 Intake Total 813.506 0 339.226 Output Total 2125 0 Balance -1311.494 0 339.226 Weight 96.3 kg Intake: Intake, IV Titration 55.506 0 221.226 Amount Heparin Sod,Pork in 0.45% 55.506 0 221.226 NaCl 25,000 unit In 0.45 % NaCl 1 250ml.bag @ 18 UNITS/KG/HR 17.226 mls/hr IV .[id number] [facility] Rx#: [id number] Oral 758 118 Output: Urine 125 Stool 0 0 Hemodialysis 2000 Other: Voiding Method Urinal Urinal Urinal # Voids 1 # Bowel Movements 1 Currently on exam awake alert oriented HEENT exam no JVP neck is supple no facial asymmetry Lungs clear to auscultation good air entry bilaterally Heart sounds unremarkable for any murmur rub gallop Abdomen soft nontender BKA on the right Minimal edema in the left Neurologically awake alert oriented - Labs CBC & Chem 7: 08/18/21 05:43 08/18/21 05:43 Labs: Abnormal Lab Results - Last 24 Hours (Table) 08/17/21 08/17/21 08/17/21 Range/Units 11:55 15:47 16:51 RBC (4.30-5.90) m/uL Hgb (13.0-17.5) gm/dL Hct (39.0-53.0) % MCV (80.0-100.0) fL MCHC (31.0-37.0) g/dL RDW (11.5-15.5) % APTT (22.0-30.0) sec BUN (9-20) mg/dL Creatinine (0.66-1.25) mg/dL POC Glucose (mg/dL) 122 H 186 H 175 H (75-99) mg/dL 08/17/21 08/17/21 08/18/21 Range/Units 20:05 20:37 02:05 RBC (4.30-5.90) m/uL Hgb (13.0-17.5) gm/dL Hct (39.0-53.0) % MCV (80.0-100.0) fL MCHC (31.0-37.0) g/dL RDW (11.5-15.5) % APTT 34.7 H (22.0-30.0) sec BUN (9-20) mg/dL Creatinine (0.66-1.25) mg/dL POC Glucose (mg/dL) 149 H 139 H (75-99) mg/dL 08/18/21 08/18/21 08/18/21 Range/Units 05:43 05:43 05:43 RBC 3.14 L (4.30-5.90) m/uL Hgb 9.3 L (13.0-17.5) gm/dL Hct 33.0 L (39.0-53.0) % MCV 105.2 H D (80.0-100.0) fL MCHC 28.1 L (31.0-37.0) g/dL RDW 16.7 H (11.5-15.5) % APTT 102.6 H* (22.0-30.0) sec BUN 33 H (9-20) mg/dL Creatinine 6.67 H (0.66-1.25) mg/dL POC Glucose (mg/dL) (75-99) mg/dL Microbiology - Last 24 Hours (Table) 08/17/21 06:57 Blood Culture - Preliminary Blood No Growth after 24 hours 08/14/21 07:26 Blood Culture Gram Stain - Final Blood Blood Culture - Final Staphylococcus aureus 08/16/21 08:39 Blood Culture - Preliminary Blood No Growth after 24 hours Assessment and Plan Assessment: Impression 1. ESRD on dialysis at home with a permacath on the right and a failed hero graft on the left 2. Admitted with staph aureus bacteremia status post catheter removal yesterday 08/17/2021 3. Diabetes mellitus 4. BKA right remote Recommendation 1. Will monitor him no need for starting dialysis until perhaps a Friday. 2. Repeat blood cultures tomorrow. 3. Monitor labs 4. Will plan to start him back on dialysis with new Permacath if possible in the next 48-72
--- NOTE | 2021-08-18 10:40 | P.PN ---
Subjective Patient was seen and evaluated by me this morning. He is feeling fairly well. Dialysis catheter was removed yesterday. Objective - Vital Signs Vital signs: Vital Signs Temp 98.7 F 08/18/21 08:15 Pulse 86 08/18/21 08:15 Resp 18 08/18/21 08:15 BP 103/70 08/18/21 08:15 Pulse Ox 94 L 08/18/21 08:15 Intake & Output 08/17/21 08/18/21 08/18/21 18:59 06:59 18:59 Intake Total 813.506 0 339.226 Output Total 2125 0 Balance -1311.494 0 339.226 Weight 96.3 kg Intake: Intake, IV Titration 55.506 0 221.226 Amount Heparin Sod,Pork in 0.45% 55.506 0 221.226 NaCl 25,000 unit In 0.45 % NaCl 1 250ml.bag @ 18 UNITS/KG/HR 17.226 mls/hr IV .[id number] [facility] Rx#: [id number] Oral 758 118 Output: Urine 125 Stool 0 0 Hemodialysis 2000 Other: Voiding Method Urinal Urinal Urinal # Voids 1 # Bowel Movements 1 - Exam General: The patient is awake and alert, in no distress Eye: there is normal conjunctiva bilaterally. Neck: The neck is supple, there is no JVD. Cardiovascular: Normal S1-S2, no S3-S4, no murmurs. Respiratory: Lungs clear to auscultation bilaterally Gastrointestinal: Abdomen is soft, nontender Musculoskeletal: There is no pedal edema. Neurological:. Speech is normal. Skin: Skin is warm and dry - Labs CBC & Chem 7: 08/18/21 05:43 08/18/21 05:43 Labs: Abnormal Lab Results - Last 24 Hours (Table) 08/17/21 08/17/21 08/17/21 Range/Units 11:55 15:47 16:51 RBC (4.30-5.90) m/uL Hgb (13.0-17.5) gm/dL Hct (39.0-53.0) % MCV (80.0-100.0) fL MCHC (31.0-37.0) g/dL RDW (11.5-15.5) % APTT (22.0-30.0) sec BUN (9-20) mg/dL Creatinine (0.66-1.25) mg/dL POC Glucose (mg/dL) 122 H 186 H 175 H (75-99) mg/dL 08/17/21 08/17/21 08/18/21 Range/Units 20:05 20:37 02:05 RBC (4.30-5.90) m/uL Hgb (13.0-17.5) gm/dL Hct (39.0-53.0) % MCV (80.0-100.0) fL MCHC (31.0-37.0) g/dL RDW (11.5-15.5) % APTT 34.7 H (22.0-30.0) sec BUN (9-20) mg/dL Creatinine (0.66-1.25) mg/dL POC Glucose (mg/dL) 149 H 139 H (75-99) mg/dL 08/18/21 08/18/21 08/18/21 Range/Units 05:43 05:43 05:43 RBC 3.14 L (4.30-5.90) m/uL Hgb 9.3 L (13.0-17.5) gm/dL Hct 33.0 L (39.0-53.0) % MCV 105.2 H D (80.0-100.0) fL MCHC 28.1 L (31.0-37.0) g/dL RDW 16.7 H (11.5-15.5) % APTT 102.6 H* (22.0-30.0) sec BUN 33 H (9-20) mg/dL Creatinine 6.67 H (0.66-1.25) mg/dL POC Glucose (mg/dL) (75-99) mg/dL Microbiology - Last 24 Hours (Table) 08/17/21 06:57 Blood Culture - Preliminary Blood No Growth after 24 hours 08/14/21 07:26 Blood Culture Gram Stain - Final Blood Blood Culture - Final Staphylococcus aureus 08/16/21 08:39 Blood Culture - Preliminary Blood No Growth after 24 hours Assessment and Plan Assessment: Patient is a 46-year-old male with end-stage renal disease on dialysis at home 5 times weekly, diabetes mellitus type 2 on insulin pump, neuropathy, and multiple other comorbid conditions who presented to the ER secondary to chills and rigors. In the ER he underwent an extensive evaluation. His COVID test negative, white blood cell count was normal, chest x-ray showed no signs of pneumonia, but he was found to have a fever of 101.4. He was given a dose of Rocephin and Tylenol. Blood cultures positive for MSSA, of note patient just completed a greater than 6 week course of IV ABX for MSSA line infection with removal/line holiday/ and line reinsertion. He had decreased responsiveness on 08/08 and ABG showed CO2 retention and he was started on BiPap. His mentation improved. He again was found to have persistent MSSA bacteremia. Underwent a tagged white blood cell scan which did not demonstrate any signs of infection, CT chest, abdomen, and pelvis also without signs of infection. He was persistently bacteremic. We attempted to treat with cathater in place due to poor access, but patient remained bacteremic. His dialysis catheter was removed on 08/17 Recurrent MSSA bacteremia ESRD with HD cath right chest well, on HD 5 times weekly at home - Antibiotic management by infectious disease - nephrology, ID, and vascular recs -TTE EF 55-60%, paradoxical septal wall motion - repeat cultures are positive from 08/14, cultures 08/16 negative to date -Dialysis catheter holiday for 2-3 days DM 1 with insulin pump at home Neuropathy - continue with trulicity - insulin pump - follow BS - last A1C 5.9 - lyrica Anemia of end stage renal disease - stable - follow CBC Recent Pulmonary Embolism - eliquis discontinued to allow for rifampin - heparin gtt - likely home on coumadin if need rifampin, will also increase coumadin levels but can have assessed 3X weekly at HD will discuss with pharmacy Acute metabolic encephalopathy, resolved
[2021-08-18] MEDS: CALCIUM ACETATE 667 MG TAB PO SCH (12:06)
[2021-08-18 12:08] LABS: Glucose,Whole Blood 163 mg/dL (75-99)
--- NOTE | 2021-08-18 13:07 | P.PN ---
Subjective Progress Note Date: 08/18/21 Patient seen and examined. Feeling better. Objective - Vital Signs Vital signs: Vital Signs Temp 98.7 F 08/18/21 11:45 Pulse 71 08/18/21 11:45 Resp 18 08/18/21 11:45 BP 144/89 08/18/21 11:45 Pulse Ox 97 08/18/21 11:45 Intake & Output 08/17/21 08/18/21 08/18/21 18:59 06:59 18:59 Intake Total 813.506 0 339.226 Output Total 2125 0 125 Balance -1311.494 0 214.226 Weight 96.3 kg Intake: Intake, IV Titration 55.506 0 221.226 Amount Heparin Sod,Pork in 0.45% 55.506 0 221.226 NaCl 25,000 unit In 0.45 % NaCl 1 250ml.bag @ 18 UNITS/KG/HR 17.226 mls/hr IV .[id number] [facility] Rx#: [id number] Oral 758 118 Output: Urine 125 125 Stool 0 0 Hemodialysis 1999 Other: Voiding Method Urinal Urinal Urinal # Voids 1 # Bowel Movements 1 - Exam No acute distress. Sitting comfortably. Right neck and chest clean and dry. No evidence of hematoma. Mild serosanguineous drainage on dressing. - Labs CBC & Chem 7: 08/18/21 05:43 08/18/21 05:43 Labs: Abnormal Lab Results - Last 24 Hours (Table) 08/17/21 08/17/21 08/17/21 Range/Units 15:47 16:51 20:05 RBC (4.30-5.90) m/uL Hgb (13.0-17.5) gm/dL Hct (39.0-53.0) % MCV (80.0-100.0) fL MCHC (31.0-37.0) g/dL RDW (11.5-15.5) % APTT (22.0-30.0) sec BUN (9-20) mg/dL Creatinine (0.66-1.25) mg/dL POC Glucose (mg/dL) 186 H 175 H 149 H (75-99) mg/dL 08/17/21 08/18/21 08/18/21 Range/Units 20:37 02:05 05:43 RBC 3.14 L (4.30-5.90) m/uL Hgb 9.3 L (13.0-17.5) gm/dL Hct 33.0 L (39.0-53.0) % MCV 105.2 H D (80.0-100.0) fL MCHC 28.1 L (31.0-37.0) g/dL RDW 16.7 H (11.5-15.5) % APTT 34.7 H (22.0-30.0) sec BUN (9-20) mg/dL Creatinine (0.66-1.25) mg/dL POC Glucose (mg/dL) 139 H (75-99) mg/dL 08/18/21 08/18/21 08/18/21 Range/Units 05:43 05:43 11:54 RBC (4.30-5.90) m/uL Hgb (13.0-17.5) gm/dL Hct (39.0-53.0) % MCV (80.0-100.0) fL MCHC (31.0-37.0) g/dL RDW (11.5-15.5) % APTT 102.6 H* (22.0-30.0) sec BUN 33 H (9-20) mg/dL Creatinine 6.67 H (0.66-1.25) mg/dL POC Glucose (mg/dL) 163 H (75-99) mg/dL Microbiology - Last 24 Hours (Table) 08/16/21 08:39 Blood Culture - Preliminary Blood No Growth after 48 hours 08/17/21 06:57 Blood Culture - Preliminary Blood No Growth after 24 hours 08/14/21 07:26 Blood Culture Gram Stain - Final Blood Blood Culture - Final Staphylococcus aureus Assessment and Plan Assessment: End-stage renal disease Persistent bacteremia Plan: Continue current line holiday. Hopeful plan for catheter replacement possibly Friday.
[2021-08-18 17:01] LABS: Glucose,Whole Blood 154 mg/dL (75-99)
[2021-08-18] MEDS: NON FORMULARY DRUG (Vilazodone Hcl [Viibryd] 40 MG Tablet) PO SCH (17:03)
--- NOTE | 2021-08-18 17:05 | PN ---
PROGRESS NOTE DATE OF SERVICE: 08/18/2021 REASON FOR FOLLOWUP: MSSA bacteremia secondary to PermCath infection. INTERVAL HISTORY: Patient is afebrile. The patient is status post removal home catheter yesterday. The patient denies having any chest pain, shortness of breath or cough. No nausea, no vomiting. No abdominal pain and no diarrhea. PHYSICAL EXAMINATION: Blood pressure 144/89, pulse of 71, temperature is 98.7, he is 97% on 2 L nasal canula. Genera description is a middle-aged male up in the bed in no distress. Respiratory system unlabored breathing, decreased intensity of breath sounds. No wheeze. Heart S1, S2. Regular rate and rhythm. Abdomen soft, no tenderness. LABS: Hemoglobin 9.8, white count 6.7, BUN of 33, creatinine 6.67. DIAGNOSTIC IMPRESSION AND PLAN: Patient with MSSA bacteremia secondary to PermCath infection. This patient did have extensive workup with no evidence of any secondary source. The PermCath has been discontinued. Repeat blood cultures, if remains to be negative will be able to get a PermCath on Friday or Friday. We will also consider suppressive antibiotic therapy after he completes on antibiotics given recurrent infection. Continue supportive care. MMODL / IJN: [id number] /
[2021-08-18 19:06] LABS: Glucose,Whole Blood 162 mg/dL (75-99)
[2021-08-18 20:14] LABS: Glucose,Whole Blood 239 mg/dL (75-99)
[2021-08-18] MEDS: traZODone HCL 100 MG TAB PO SCH (21:03)
[2021-08-19] MEDS: oxyCODONE-APAP 10-325MG 1 EACH TAB PO PRN ×3 (00:19→19:44)
[2021-08-19 01:51] LABS: Glucose,Whole Blood 214 mg/dL (75-99)
[2021-08-19] MEDS: CALCIUM CARBONATE 500 MG CHEWABLE PO PRN (04:26)
[2021-08-19 05:46] LABS: Glucose,Whole Blood 115 mg/dL (75-99)
[2021-08-19] MEDS: HEPARIN SOD,PORK IN 0.45% NACL 25,000 UNIT in 0.45% NACL 1 250ML.BAG IV SCH ×2 (06:17→13:31)
[2021-08-19] MEDS: PANTOPRAZOLE 40 MG TABLET PO SCH (06:19)
[2021-08-19] MEDS: METOCLOPRAMIDE 5 MG TAB PO SCH ×3 (06:19→17:12)
[2021-08-19] MEDS: INSULIN PUMP MEAL BOLUS 1 UNIT MISC MISCELLANE SCH ×4 (06:19→20:49)
[2021-08-19] MEDS: MIDODRINE 5 MG TAB PO SCH ×3 (06:19→16:55)
[2021-08-19 07:50] LABS: Anisocytosis Slight; HCT 28.3 % (39.0-53.0); HGB 8.9 gm/dL (13.0-17.5); Hypochromasia Slight; MCH 29.9 pg (25.0-35.0); MCHC 31.4 g/dL (31.0-37.0); Mean Platelet Volume 11.3; Platelet Count 310 k/uL (150-450); RBC 2.97 m/uL (4.30-5.90); RDW 16.6 % (11.5-15.5); WBC 8.2 k/uL (3.8-10.6)
[2021-08-19 07:52] LABS: MCV 95.1 fL (80.0-100.0)
[2021-08-19] MEDS: TIMOLOL 0.5% OPHTH DROPS 5 ML BTL RIGHT EYE SCH ×2 (08:23→19:46)
[2021-08-19] MEDS: ONDANSETRON 4 MG TAB PO SCH ×2 (08:23→19:45)
[2021-08-19] MEDS: ASPIRIN 81 MG PO SCH (08:23)
[2021-08-19] MEDS: PREGABALIN 75 MG CAP PO SCH ×2 (08:23→19:45)
[2021-08-19] MEDS: rifAMPin 300 MG CAP PO SCH ×2 (08:23→19:45)
[2021-08-19] MEDS: DIALYVITE PO SCH (08:23)
[2021-08-19] MEDS: FUROSEMIDE 80 MG TAB PO SCH ×2 (08:23→15:09)
--- NOTE | 2021-08-19 09:02 | P.PN ---
Subjective Progress Note Date: 08/19/21 Principal diagnosis: Is a 46-year-old male with end-stage renal failure on home hemodialysis with a permacath on the right. Additionally has a hero graft Nonfunctional on the left side Came in with fever and had staph aureus bacteremia. His permacath was removed day before yesterday after dialysis he has last dialysis was 08/17/2021Friday He is afebrile feeling fairly good as minimal urine output Previously had a methicillin sensitive staph aureus bacteremia in April 2021 Is known with diabetes, BKA on the right, seizure disorder, history of pulmonary embolism He also has failed PD catheter and multiple AV fistulas and grafts. Objective - Vital Signs Vital signs: Vital Signs Temp 97.5 F L 08/19/21 04:00 Pulse 76 08/19/21 04:00 Resp 18 08/19/21 04:00 BP 133/78 08/19/21 04:00 Pulse Ox 99 08/19/21 04:00 Intake & Output 08/18/21 08/19/21 08/19/21 18:59 06:59 18:59 Intake Total 519.226 218.483 Output Total 125 100 Balance 394.226 118.483 Weight 97.4 kg Intake: Intake, IV Titration 221.226 218.483 Amount Heparin Sod,Pork in 0.45% 221.226 218.483 NaCl 25,000 unit In 0.45 % NaCl 1 250ml.bag @ 18 UNITS/KG/HR 17.226 mls/hr IV .[id number] [facility] Rx#: [id number] Oral 298 Output: Urine 125 100 Stool 0 Other: Voiding Method Urinal Urinal # Voids 1 Awake alert oriented comfortable Neck is supple no facial asymmetry Lungs clear to auscultation good air entry bilaterally Heart sounds unremarkable for any murmur rub gallop Abdomen soft nontender Extremity exam trace edema BKA on the right Is awake alert oriented no asterixis - Labs CBC & Chem 7: 08/19/21 04:50 08/18/21 05:43 Labs: Abnormal Lab Results - Last 24 Hours (Table) 08/18/21 08/18/21 08/18/21 Range/Units 05:43 11:54 16:59 RBC (4.30-5.90) m/uL Hgb (13.0-17.5) gm/dL Hct (39.0-53.0) % RDW (11.5-15.5) % APTT 102.6 H* (22.0-30.0) sec POC Glucose (mg/dL) 163 H 154 H (75-99) mg/dL 08/18/21 08/18/21 08/18/21 Range/Units 19:02 19:12 20:13 RBC (4.30-5.90) m/uL Hgb (13.0-17.5) gm/dL Hct (39.0-53.0) % RDW (11.5-15.5) % APTT 108.3 H* (22.0-30.0) sec POC Glucose (mg/dL) 162 H 239 H (75-99) mg/dL 08/19/21 08/19/21 08/19/21 Range/Units 01:49 04:50 04:50 RBC 2.97 L (4.30-5.90) m/uL Hgb 8.9 L (13.0-17.5) gm/dL Hct 28.3 L (39.0-53.0) % RDW 16.6 H (11.5-15.5) % APTT 66.1 H (22.0-30.0) sec POC Glucose (mg/dL) 214 H (75-99) mg/dL 08/19/21 Range/Units 05:44 RBC (4.30-5.90) m/uL Hgb (13.0-17.5) gm/dL Hct (39.0-53.0) % RDW (11.5-15.5) % APTT (22.0-30.0) sec POC Glucose (mg/dL) 115 H (75-99) mg/dL Microbiology - Last 24 Hours (Table) 08/18/21 05:43 Blood Culture - Preliminary Blood No Growth after 24 hours 08/16/21 08:39 Blood Culture - Preliminary Blood No Growth after 48 hours 08/17/21 06:57 Blood Culture - Preliminary Blood No Growth after 24 hours Assessment and Plan Assessment: Impression 1. ESRD on dialysis at home with a permacath on the right and a failed hero graft on the left, status post removal of permacath on 08/17/2021 because of bacteremia 2. Admitted with staph aureus bacteremia, dated 08/14/2021 status post catheter removal 08/17/2021, subsequently blood cultures negative on 08/16/2021 08/17/2021 and 08/18/2021 3. Diabetes mellitus 4. BKA right remote Recommendation 1. as this blood cultures have been negative since 08/16/2021 and 1 hours please proceed with reinsertion of permacath 2. Monitor labs 4. Will plan to start him back on dialysis with new Permacath if possible in th 24-48 hours
[2021-08-19 12:02] LABS: Glucose,Whole Blood 126 mg/dL (75-99)
[2021-08-19] MEDS: CALCIUM ACETATE 667 MG TAB PO SCH (12:37)
--- NOTE | 2021-08-19 15:41 | P.PN ---
Subjective Patient was seen and evaluated by me this morning. He is feeling fairly well. Dialysis catheter was removed yesterday. Objective - Vital Signs Vital signs: Vital Signs Temp 97.8 F 08/19/21 15:11 Pulse 77 08/19/21 15:11 Resp 18 08/19/21 15:11 BP 114/64 08/19/21 15:11 Pulse Ox 95 08/19/21 15:11 Intake & Output 08/18/21 08/19/21 08/19/21 18:59 06:59 18:59 Intake Total 519.226 218.483 791.233 Output Total 125 100 Balance 394.226 118.483 791.233 Weight 97.4 kg Intake: Intake, IV Titration 221.226 218.483 71.233 Amount Heparin Sod,Pork in 0.45% 221.226 218.483 71.233 NaCl 25,000 unit In 0.45 % NaCl 1 250ml.bag @ 18 UNITS/KG/HR 17.226 mls/hr IV .[id number] [facility] Rx#: [id number] Oral 298 720 Output: Urine 125 100 Stool 0 Other: Voiding Method Urinal Urinal Urinal # Voids 1 # Bowel Movements 0 - Exam General: The patient is awake and alert, in no distress Eye: there is normal conjunctiva bilaterally. Neck: The neck is supple, there is no JVD. Cardiovascular: Normal S1-S2, no S3-S4, no murmurs. Respiratory: Lungs clear to auscultation bilaterally Gastrointestinal: Abdomen is soft, nontender Musculoskeletal: There is no pedal edema. Neurological:. Speech is normal. Skin: Skin is warm and dry - Labs CBC & Chem 7: 08/19/21 04:50 08/18/21 05:43 Labs: Abnormal Lab Results - Last 24 Hours (Table) 08/18/21 08/18/21 08/18/21 Range/Units 16:59 19:02 19:12 RBC (4.30-5.90) m/uL Hgb (13.0-17.5) gm/dL Hct (39.0-53.0) % RDW (11.5-15.5) % APTT 108.3 H* (22.0-30.0) sec POC Glucose (mg/dL) 154 H 162 H (75-99) mg/dL 08/18/21 08/19/21 08/19/21 Range/Units 20:13 01:49 04:50 RBC (4.30-5.90) m/uL Hgb (13.0-17.5) gm/dL Hct (39.0-53.0) % RDW (11.5-15.5) % APTT 66.1 H (22.0-30.0) sec POC Glucose (mg/dL) 239 H 214 H (75-99) mg/dL 08/19/21 08/19/21 08/19/21 Range/Units 04:50 05:44 11:51 RBC 2.97 L (4.30-5.90) m/uL Hgb 8.9 L (13.0-17.5) gm/dL Hct 28.3 L (39.0-53.0) % RDW 16.6 H (11.5-15.5) % APTT (22.0-30.0) sec POC Glucose (mg/dL) 115 H 126 H (75-99) mg/dL 08/19/21 Range/Units 12:29 RBC (4.30-5.90) m/uL Hgb (13.0-17.5) gm/dL Hct (39.0-53.0) % RDW (11.5-15.5) % APTT 67.2 H (22.0-30.0) sec POC Glucose (mg/dL) (75-99) mg/dL Microbiology - Last 24 Hours (Table) 08/16/21 08:39 Blood Culture - Preliminary Blood No Growth after 72 hours 08/17/21 06:57 Blood Culture - Preliminary Blood No Growth after 48 hours 08/18/21 05:43 Blood Culture - Preliminary Blood No Growth after 24 hours Assessment and Plan Assessment: Patient is a 46-year-old male with end-stage renal disease on dialysis at home 5 times weekly, diabetes mellitus type 2 on insulin pump, neuropathy, and multiple other comorbid conditions who presented to the ER secondary to chills and rigors. In the ER he underwent an extensive evaluation. His COVID test negative, white blood cell count was normal, chest x-ray showed no signs of pneumonia, but he was found to have a fever of 101.4. He was given a dose of Rocephin and Tyleno l. Blood cultures positive for MSSA, of note patient just completed a greater than 6 week course of IV ABX for MSSA line infection with removal/line holiday/ and line reinsertion. He had decreased responsiveness on 08/08 and ABG showed CO2 retention and he was started on BiPap. His mentation improved. He again was found to have persistent MSSA bacteremia. Underwent a tagged white blood cell scan which did not demonstrate any signs of infection, CT chest, abdomen, and pelvis also without signs of infection. He was persistently bacteremic. We attempted to treat with cathater in place due to poor access, but patient remained bacteremic. His dialysis catheter was removed on 08/17 Recurrent MSSA bacteremia ESRD with HD cath right chest well, on HD 5 times weekly at home - Antibiotic management by infectious disease - nephrology, ID, and vascular recs -TTE EF 55-60%, paradoxical septal wall motion - repeat cultures are positive from 08/14, cultures 08/16 negative to date -Dialysis catheter holiday for 2-3 days DM 1 with insulin pump at home Neuropathy - continue with trulicity - insulin pump - follow BS - last A1C 5.9 - lyrica Anemia of end stage renal disease - stable - follow CBC Recent Pulmonary Embolism - eliquis discontinued to allow for rifampin - heparin gtt - likely home on coumadin if need rifampin, will also increase coumadin levels but can have assessed 3X weekly at HD will discuss with pharmacy Acute metabolic encephalopathy, resolved
[2021-08-19] MEDS: NON FORMULARY DRUG (Vilazodone Hcl [Viibryd] 40 MG Tablet) PO SCH (16:56)
[2021-08-19 17:00] LABS: Glucose,Whole Blood 156 mg/dL (75-99)
[2021-08-19] MEDS: traZODone HCL 100 MG TAB PO SCH (19:45)
[2021-08-19 20:40] LABS: Glucose,Whole Blood 132 mg/dL (75-99)
--- NOTE | 2021-08-19 23:39 | PN ---
PROGRESS NOTE DATE OF SERVICE: 08/19/2021 REASON FOR FOLLOWUP: MSSA bacteremia secondary to PermCath infection. INTERVAL HISTORY: The patient is afebrile. The patient is breathing comfortably. The patient denies having any chest pain, shortness of breath or cough. No vomiting. No abdominal pain or diarrhea. PHYSICAL EXAMINATION: Blood pressure 116/71 with a pulse of 70, temperature 97.8. He is 93% on 3 L nasal cannula. General description is a middle-aged male lying in bed in no distress. RESPIRATORY SYSTEM: Unlabored breathing. Decreased intensity of breath sounds. No wheeze. HEART: S1, S2. Regular rate and rhythm. ABDOMEN: Soft. No tenderness. LABS: Blood cultures from August 16, and so far negative. DIAGNOSTIC IMPRESSION AND PLAN: Patient with MSSA bacteremia secondary to PermCath infection, which has been discontinued. If the blood culture from August 16 remains negative by tomorrow, PermCath for continued dialysis. Close outpatient followup. MMODL / IJN: [id number] /
[2021-08-20] MEDS ORDERED: IV FLUID CONTINUATION 500 ML IV ONE (02:50)
[2021-08-20] MEDS: oxyCODONE-APAP 10-325MG 1 EACH TAB PO PRN ×2 (02:51→20:38)
[2021-08-20 02:57] LABS: Glucose,Whole Blood 98 mg/dL (75-99)
[2021-08-20 06:03] LABS: Glucose,Whole Blood 100 mg/dL (75-99)
[2021-08-20] MEDS: METOCLOPRAMIDE 5 MG TAB PO SCH ×3 (06:22→17:36)
[2021-08-20] MEDS: PANTOPRAZOLE 40 MG TABLET PO SCH (06:22)
[2021-08-20] MEDS: MIDODRINE 5 MG TAB PO SCH ×3 (06:23→17:36)
[2021-08-20] MEDS: INSULIN PUMP MEAL BOLUS 1 UNIT MISC MISCELLANE SCH ×4 (06:24→20:33)
[2021-08-20 07:40] LABS: Calcium 8.5 mg/dL (8.4-10.2)
[2021-08-20] MEDS: HEPARIN SOD,PORK IN 0.45% NACL 25,000 UNIT in 0.45% NACL 1 250ML.BAG IV SCH ×2 (07:57→20:33)
[2021-08-20] MEDS: FUROSEMIDE 80 MG TAB PO SCH ×2 (08:03→17:36)
[2021-08-20] MEDS: ONDANSETRON 4 MG TAB PO SCH ×2 (08:03→20:34)
[2021-08-20] MEDS: PREGABALIN 75 MG CAP PO SCH ×2 (08:03→20:34)
[2021-08-20] MEDS: rifAMPin 300 MG CAP PO SCH ×2 (08:04→20:34)
[2021-08-20] MEDS: TIMOLOL 0.5% OPHTH DROPS 5 ML BTL RIGHT EYE SCH ×2 (08:05→20:34)
[2021-08-20] MEDS: DIALYVITE PO SCH (08:08)
[2021-08-20 11:50] LABS: Glucose,Whole Blood 105 mg/dL (75-99)
[2021-08-20] MEDS: ASPIRIN 81 MG PO SCH (11:52)
[2021-08-20] MEDS: CALCIUM ACETATE 667 MG TAB PO SCH (11:58)
[2021-08-20] MEDS ORDERED: DESMOPRESSIN ACETATE 25 MCG in SODIUM CHLORIDE 0.9% 50 ML IVPB ONE (13:00)
--- NOTE | 2021-08-20 14:06 | PN ---
PROGRESS NOTE Patient is seen for followup for end-stage renal disease. His blood cultures have been negative since 08/16/2021. Patient was tentatively scheduled for PermCath placement, however, he stated that he ate this morning and maybe this will be done later on today. He is complaining of continued oozing from the site of removal of his right IJ PermCath. No complaints of chest pains or shortness of breath. PHYSICAL EXAMINATION: Blood pressure 125/71, heart rate 73 per minute. He is afebrile. Examination of the heart S1, S2. Examination of the lungs, decreased breath sounds at bases. Abdomen is soft, nontender. Examination of lower extremities: Edema 1+ bilaterally and right BKA. [employer] exam grossly intact. LAB: Show sodium 135, potassium 5.0, BUN 56, creatinine 10.1. ASSESSMENT: 1. End-stage renal disease, on hemodialysis. Will maintain patient on a Friday, Friday, Friday schedule for now. He was on home hemodialysis prior to admission. 2. MSSA bacteremia with recurrent episodes, status post removal of PermCath on 08/17/2021. The patient can have new catheter placed today with hemodialysis scheduled for today. 3. Oozing from the site of removal of right IJ PermCath. Will give one dose of DDAVP. 4. CKD mineral bone disorder. 5. Mild volume overload. 6. History of massive PE, status post EKOS procedure. Currently maintained on IV heparin in anticipation for placement of PermCath. PLAN: DDAVP x1. Hemodialysis post placement of PermCath. MMODL / IJN: [id number] /
[2021-08-20] MEDS ORDERED: LIDOCAINE 1% INJ 10MG/ML (20 ML MDV) SQ ONE (14:53)
[2021-08-20] MEDS ORDERED: LIDOCAINE 1% INJ 10MG/ML (20 ML MDV) ONE (15:10)
[2021-08-20] MEDS ORDERED: fentaNYL (PF) 50 MCG/ML 2 ML AMP ONE (15:14)
[2021-08-20] MEDS ORDERED: fentaNYL (PF) 50 MCG/ML 2 ML AMP IV ONE (15:17)
[2021-08-20] MEDS ORDERED: HEPARIN SODIUM 1,000 UN/ML (10ML VL) ONE (15:24)
[2021-08-20] MEDS ORDERED: HEPARIN SODIUM 1,000 UN/ML (10ML VL) MISCELLANE ONE (15:28)
--- NOTE | 2021-08-20 15:47 | P.OP ---
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 Postoperative Diagnosis: Same Procedure(s) Performed: #1 ultrasound-guide right internal jugular vein access #2 venogram internal jugular vein and superior vena cava #3 ultrasound-guided right common femoral vein access #4 placement of tunneled hemodialysis catheter via right common femoral vein Anesthesia: local, other (Sedation) Surgeon: Bernard Turner Estimated Blood Loss (ml): 10 Pathology: none sent Condition: stable Disposition: floor Indications for Procedure: 46-year-old gentleman with history of end-stage renal disease on hemodialysis currently being managed in the hospital secondary to fevers and bacteremia. He had his previous right internal jugular vein tunneled catheter removed and has since had negative blood cultures over the last 3 days. He presents today to the [facility] for placement of tunneled hemodialysis catheter. After discussion with the patient he would prefer the catheter to be in his chest though he says that he has had multiple catheters in the chest previously. He does have a lower extremity venous duplex which demonstrates patent femoral vein bilaterally. We will attempt access to the right internal jugular vein for possible tunneled catheter placement. Operative Findings: Internal jugular vein appeared to be patent and compressible. After access venogram was obtained demonstrating occlusion with a large collateral vein filling distal to the occlusion. Unable to place wire across the lesion into the superior vena cava. Common femoral vein on the right was patent without any thrombus noted. Description of Procedure: After written and informed consent was obtained the patient all risks benefits and complications were described patient is brought to the Risk [facility] and laid in a supine position. The area of the neck and groins were prepped and draped in usual sterile fashion. Attempt at the right neck was then performed and under ultrasound guidance and utilizing a micropuncture needle the right internal jugular vein was accessed. Guidewire was placed and shown to be hitting an occlusive area. The micro-catheter was then placed and venogram was obtained demonstrating occlusion of internal jugular vein with a large collateral noted filling the superior vena cava distal to this area of occlusion. Multiple attempts with a Glidewire was then performed without ability to cross this blockage. All guidewires and catheters were then removed and attention was then placed to the femoral access. Utilizing ultrasound the right common femoral vein was located and shown to be patent without any thrombus. Utilizing a multipurpose needle the vein was entered with nonpulsatile blood flow visualized guidewire was then placed in the inferior vena cava. Small incision was then created at the proximal thigh and a 28 cm straight palindrome catheter was then tunneled from this site to the access site. Serial dilation was then performed and breakaway sheath was placed. Tunneled catheter was then placed through the breakaway sheath and the sheath was removed. A shown to be in good position without any kinking. The port was then flushed without issue and hep-locked. The catheter was then sutured in place. The area was then cleansed and dressings were placed. The patient all procedure well was sent back to his room for recovery.
--- NOTE | 2021-08-20 16:20 | P.PN ---
Subjective Patient is doing well today. No acute events overnight. Objective - Vital Signs Vital signs: Vital Signs Temp 98.5 F 08/20/21 12:32 Pulse 69 08/20/21 12:32 Resp 16 08/20/21 14:00 BP 111/67 08/20/21 12:32 Pulse Ox 97 08/20/21 12:32 Intake & Output 08/19/21 08/20/21 08/20/21 18:59 06:59 18:59 Intake Total 1271.233 530 0 Output Total 100 125 Balance 1271.233 430 -125 Weight 97.6 kg Intake: IV 50 Intake, IV Titration 71.233 Amount Heparin Sod,Pork in 0.45% 71.233 NaCl 25,000 unit In 0.45 % NaCl 1 250ml.bag @ 18 UNITS/KG/HR 17.226 mls/hr IV .[id number] [facility] Rx#: [id number] Oral 1200 480 0 Output: Urine 100 125 Stool 0 Other: Voiding Method Urinal Urinal Urinal # Voids 1 # Bowel Movements 0 - Exam General: The patient is awake and alert, in no distress Eye: there is normal conjunctiva bilaterally. Neck: The neck is supple, there is no JVD. Cardiovascular: Normal S1-S2, no S3-S4, no murmurs. Respiratory: Lungs clear to auscultation bilaterally Gastrointestinal: Abdomen is soft, nontender Musculoskeletal: There is no pedal edema. Neurological:. Speech is normal. Skin: Skin is warm and dry - Labs CBC & Chem 7: 08/19/21 04:50 08/20/21 06:55 Labs: Abnormal Lab Results - Last 24 Hours (Table) 08/19/21 08/19/21 08/19/21 Range/Units 16:54 19:06 20:38 APTT 52.4 H (22.0-30.0) sec Sodium (137-145) mmol/L Carbon Dioxide (22-30) mmol/L BUN (9-20) mg/dL Creatinine (0.66-1.25) mg/dL POC Glucose (mg/dL) 156 H 132 H (75-99) mg/dL 08/20/21 08/20/21 08/20/21 Range/Units 06:02 06:55 06:55 APTT 40.8 H (22.0-30.0) sec Sodium 135 L (137-145) mmol/L Carbon Dioxide 19 L (22-30) mmol/L BUN 56 H (9-20) mg/dL Creatinine 10.12 H* (0.66-1.25) mg/dL POC Glucose (mg/dL) 100 H (75-99) mg/dL 08/20/21 Range/Units 11:43 APTT (22.0-30.0) sec Sodium (137-145) mmol/L Carbon Dioxide (22-30) mmol/L BUN (9-20) mg/dL Creatinine (0.66-1.25) mg/dL POC Glucose (mg/dL) 105 H (75-99) mg/dL Microbiology - Last 24 Hours (Table) 08/16/21 08:39 Blood Culture - Preliminary Blood No Growth after 96 hours 08/17/21 06:57 Blood Culture - Preliminary Blood No Growth after 72 hours 08/18/21 05:43 Blood Culture - Preliminary Blood No Growth after 48 hours Assessment and Plan Assessment: Patient is a 46-year-old male with end-stage renal disease on dialysis at home 5 times weekly, diabetes mellitus type 2 on insulin pump, neuropathy, and multiple other comorbid conditions who presented to the ER secondary to chills and rigors. In the ER he underwent an extensive evaluation. His COVID test negative, white blood cell count was normal, chest x-ray showed no signs of pneumonia, but he was found to have a fever of 101.4. He was given a dose of Rocephin and Ty lenol. Blood cultures positive for MSSA, of note patient just completed a greater than 6 week course of IV ABX for MSSA line infection with removal/line holiday/ and line reinsertion. He had decreased responsiveness on 08/08 and ABG showed CO2 retention and he was started on BiPap. His mentation improved. He again was found to have persistent MSSA bacteremia. Underwent a tagged white blood cell scan which did not demonstrate any signs of infection, CT chest, abdomen, and pelvis also without signs of infection. He was persistently bacteremic. We attempted to treat with cathater in place due to poor access, but patient remained bacteremic. His dialysis catheter was removed on 08/17 Recurrent MSSA bacteremia ESRD with HD cath right chest well, on HD 5 times weekly at home - Antibiotic management by infectious disease - nephrology, ID, and vascular recs -TTE EF 55-60%, paradoxical septal wall motion - repeat cultures are positive from 08/14, cultures 08/16 negative to date -Dialysis catheter holiday for 2-3 days DM 1 with insulin pump at home Neuropathy - continue with trulicity - insulin pump - follow BS - last A1C 5.9 - lyrica Anemia of end stage renal disease - stable - follow CBC Recent Pulmonary Embolism - eliquis discontinued to allow for rifampin - heparin gtt - likely home on coumadin if need rifampin, will also increase coumadin levels but can have assessed 3X weekly at HD will discuss with pharmacy Acute metabolic encephalopathy, resolved
--- NOTE | 2021-08-20 16:27 | XR ---
EXAMINATION TYPE: XR chest 1V portable DATE OF EXAM: 08/20/2021 Comparison: 08/06/2021 Clinical History: 46-year-old male attempted line placement Findings: Heart upper limits of normal in size. Slightly low lung volumes with crowded vascular markings. Mild interstitial prominence. Patchy retrocardiac opacity. Large bore central catheter on the left. Tip wi thin the right atrium. No appreciable pneumothorax. Right-sided double-lumen hemodialysis catheter ramos s been normal. Impression: Hypoventilatory changes. Interstitial prominence could reflect mild pulmonary vascular congestion. So me patchy retrocardiac atelectasis versus early infiltrate. Right-sided double-lumen hemodialysis catheter has been removed. No appreciable pneumothorax.
[2021-08-20 16:28] LABS: Glucose,Whole Blood 71 mg/dL (75-99)
[2021-08-20] MEDS: NON FORMULARY DRUG (Vilazodone Hcl [Viibryd] 40 MG Tablet) PO SCH (17:37)
[2021-08-20 18:23] LABS: Glucose,Whole Blood 84 mg/dL (75-99)
--- NOTE | 2021-08-20 18:42 | PN ---
PROGRESS NOTE DATE OF SERVICE: 08/20/2021 REASON FOR FOLLOWUP: MSSA bacteremia secondary to PermCath infection. INTERVAL HISTORY: The patient is afebrile. The patient is breathing comfortably. Denies any chest pain, shortness of breath or cough. No nausea, no vomiting, no abdominal pain or diarrhea. PHYSICAL EXAMINATION: Blood pressure 92/58 with a pulse of 75, temperature 97.8. He is 96% on room air. General description is a middle-aged male up in the chair in no distress. RESPIRATORY SYSTEM: Unlabored breathing. Decreased intensity of breath sounds. No wheeze. HEART: S1, S2. Regular rate and rhythm. ABDOMEN: Soft. No tenderness. LABS: BUN of 56. Creatinine is 10.12. Blood cultures on 08/16, 08/17 and 08/18 are negative. DIAGNOSTIC IMPRESSION AND PLAN: Patient with MSSA bacteremia secondary to PermCath infection, status post removal of the PermCath. Patient is clearing up his bacteremia. He should be cleared to go for another PermCath placement. Plan is for 2 weeks of IV cefazolin post dialysis after antibiotic therapy with oral Keflex design director. MMODL / IJN: [id number] /
[2021-08-20 20:10] LABS: Glucose,Whole Blood 127 mg/dL (75-99)
[2021-08-20] MEDS: traZODone HCL 100 MG TAB PO SCH (20:34)
[2021-08-21 02:09] LABS: Glucose,Whole Blood 169 mg/dL (75-99)
[2021-08-21 06:05] LABS: Glucose,Whole Blood 99 mg/dL (75-99)
[2021-08-21] MEDS: PANTOPRAZOLE 40 MG TABLET PO SCH (06:40)
[2021-08-21] MEDS: MIDODRINE 5 MG TAB PO SCH ×3 (06:40→17:06)
[2021-08-21] MEDS: METOCLOPRAMIDE 5 MG TAB PO SCH ×3 (06:40→17:09)
[2021-08-21] MEDS: oxyCODONE-APAP 10-325MG 1 EACH TAB PO PRN ×3 (06:43→22:57)
[2021-08-21 06:53] LABS: Anisocytosis Slight; HCT 22.3 % (39.0-53.0); Hypochromasia Slight; MCH 28.9 pg (25.0-35.0); MCHC 30.6 g/dL (31.0-37.0); MCV 94.4 fL (80.0-100.0); Mean Platelet Volume 10.2; Platelet Count 304 k/uL (150-450); RBC 2.36 m/uL (4.30-5.90); RDW 16.6 % (11.5-15.5); WBC 5.9 k/uL (3.8-10.6)
[2021-08-21 06:56] LABS: HGB 6.8 gm/dL (13.0-17.5)
[2021-08-21 07:28] LABS: Glucose,Whole Blood 78 mg/dL (75-99)
[2021-08-21] MEDS: INSULIN PUMP MEAL BOLUS 1 UNIT MISC MISCELLANE SCH ×4 (07:43→21:03)
[2021-08-21] MEDS: PREGABALIN 75 MG CAP PO SCH ×2 (08:02→21:03)
[2021-08-21] MEDS: FUROSEMIDE 80 MG TAB PO SCH ×2 (08:02→17:06)
[2021-08-21] MEDS: rifAMPin 300 MG CAP PO SCH ×2 (08:02→21:03)
[2021-08-21] MEDS: ASPIRIN 81 MG PO SCH (08:02)
[2021-08-21] MEDS: TIMOLOL 0.5% OPHTH DROPS 5 ML BTL RIGHT EYE SCH ×2 (08:02→21:03)
[2021-08-21] MEDS: ONDANSETRON 4 MG TAB PO SCH ×2 (08:02→21:03)
[2021-08-21 09:17] LABS: Calcium 8.2 mg/dL (8.4-10.2); Potassium 5.3 mmol/L (3.5-5.1)
--- NOTE | 2021-08-21 10:45 | IR ---
Fluoroscopy HISTORY: Pain 4.3 minutes fluoroscopy time supplied to the referring clinician. 324 intraoperative C-arm images do cument the procedure. See dictated report from vascular surgery.
[2021-08-21] MEDS: DIALYVITE PO SCH (11:29)
[2021-08-21] MEDS: CALCIUM ACETATE 667 MG TAB PO SCH (11:36)
[2021-08-21] MEDS ORDERED: DESMOPRESSIN ACETATE 25 MCG in SODIUM CHLORIDE 0.9% 50 ML IVPB ONE (11:45)
[2021-08-21 12:17] LABS: Glucose,Whole Blood 122 mg/dL (75-99)
--- NOTE | 2021-08-21 13:25 | PN ---
PROGRESS NOTE Patient is seen for followup for end-stage renal disease. He is currently seen on hemodialysis, tolerating his treatment well. The patient has had oozing from his femoral catheter placement yesterday. There are plans for possible suture placement. IJ catheter was removed, but it could not be replaced in the IJ. It appears that this is a PermCath. This morning, hemoglobin was down to 6.8 g/dL and patient is receiving 1 unit packed RBCs. PHYSICAL EXAMINATION: On examination today, blood pressure 128/77, heart rate 77 per minute. He is afebrile. Examination of the heart S1, S2. Examination of the lungs, bilateral breath sounds are heard. Abdomen is soft, nontender. Examination of lower extremities shows edema 1+ left lower extremity. FARM EQUIPMENT OPERATOR exam grossly intact. LAB: Show sodium 133, potassium 5.3, chloride 99, BUN 64, creatinine 11.2, hemoglobin 6.8 g/dL. ASSESSMENT: 1. End-stage renal disease, on hemodialysis. The patient was on home hemodialysis. For now, we will maintain him on a Friday, , Friday schedule. 2. Volume overload expect improvement with dialysis. 3. Anemia associated with blood loss receiving packed RBCs transfusion. Will give 25 mcg of DDAVP. 4. Mild hyperkalemia associated with end-stage renal disease. Expect improvement post dialysis. 5. MSSA bacteremia status post removal of IJ PermCath, maintained on rifampin being followed by ID with plans for cefazolin 2 g at dialysis. PLAN: DDAVP. Agree with one unit packed RBCs transfusion. Increase UF as tolerated. MMODL / IJN: [id number] /
--- NOTE | 2021-08-21 14:22 | PN ---
PROGRESS NOTE DATE OF SERVICE: 08/21/2021 REASON FOR FOLLOWUP: MSSA bacteremia secondary to PermCath infection. INTERVAL HISTORY: Patient is afebrile. The patient is breathing comfortably. The patient denies having any chest pain, shortness of breath or cough. No abdominal pain. No diarrhea. PHYSICAL EXAMINATION: Blood pressure is 133/79 with a pulse of 76. Temperature is 97.8. He is 99% on 3 L nasal cannula. General description is a middle-aged male lying in bed in no distress. Respiratory system: Unlabored breathing, decreased intensity of breath sounds. No wheeze. Heart S1, S2. Regular rate and rhythm. Abdomen soft, no tenderness. LABS: Hemoglobin 6.1, white count 5.9. Blood culture repeat has been negative. DIAGNOSTIC IMPRESSION AND PLAN: Patient with MSSA bacteremia secondary to PermCath that has been discontinued. Patient's Cefazolin will be adjusted to cefazolin 2 g with each dialysis for another 10 doses that will make it about 4 weeks from his negative blood cultures. Afterwards, we will recommend oral Keflex 500 mg daily as a prophylactic to prevent recurrent infection. This was discussed in detail with the patient's demand generation manager, Dr. Cope. MMBRENNANL / ODESSAN: [id number] /
--- NOTE | 2021-08-21 14:40 | P.PN ---
Subjective Patient's hemoglobin this morning was 6.8. He has been having some oozing blood from around the new access sites. Objective - Vital Signs Vital signs: Vital Signs Temp 97.3 F L 08/21/21 13:42 Pulse 91 08/21/21 13:42 Resp 18 08/21/21 13:42 BP 108/59 08/21/21 13:42 Pulse Ox 96 08/21/21 13:42 Intake & Output 08/20/21 08/21/21 08/21/21 18:59 06:59 18:59 Intake Total 538.670 601 2005.906 Output Total 125 475 0 Balance 413.767 -235 1248.906 Weight 112 kg Intake: Intake, IV Titration 178.767 98.906 Amount Heparin Sod,Pork in 0.45% 178.767 98.906 NaCl 25,000 unit In 0.45 % NaCl 1 250ml.bag @ 18 UNITS/KG/HR 17.226 mls/hr IV .[id number] [facility] Rx#: [id number] Oral 360 240 840 Blood Product 310 Rc As-1 Unit 310 [id number] Output: Urine 125 475 Stool 0 0 Other: Voiding Method Urinal Urinal Urinal # Voids 1 - Exam General: The patient is awake and alert, in no distress Eye: there is normal conjunctiva bilaterally. Neck: The neck is supple, there is no JVD. Cardiovascular: Normal S1-S2, no S3-S4, no murmurs. Respiratory: Lungs clear to auscultation bilaterally Gastrointestinal: Abdomen is soft, nontender Musculoskeletal: There is no pedal edema. Neurological:. Speech is normal. Skin: Skin is warm and dry - Labs CBC & Chem 7: 08/21/21 06:12 08/21/21 06:12 Labs: Abnormal Lab Results - Last 24 Hours (Table) 08/20/21 08/20/21 08/20/21 Range/Units 16:08 20:08 23:48 RBC (4.30-5.90) m/uL Hgb (13.0-17.5) gm/dL Hct (39.0-53.0) % MCHC (31.0-37.0) g/dL RDW (11.5-15.5) % APTT 59.8 H (22.0-30.0) sec Sodium (137-145) mmol/L Potassium (3.5-5.1) mmol/L Carbon Dioxide (22-30) mmol/L BUN (9-20) mg/dL Creatinine (0.66-1.25) mg/dL Glucose (74-99) mg/dL POC Glucose (mg/dL) 71 L 127 H (75-99) mg/dL Calcium (8.4-10.2) mg/dL Crossmatch 08/21/21 08/21/21 08/21/21 Range/Units 02:07 06:12 06:12 RBC 2.36 L (4.30-5.90) m/uL Hgb 6.8 L* D (13.0-17.5) gm/dL Hct 22.3 L (39.0-53.0) % MCHC 30.6 L (31.0-37.0) g/dL RDW 16.6 H (11.5-15.5) % APTT (22.0-30.0) sec Sodium 133 L (137-145) mmol/L Potassium 5.3 H (3.5-5.1) mmol/L Carbon Dioxide 21 L (22-30) mmol/L BUN 64 H (9-20) mg/dL Creatinine 11.24 H* (0.66-1.25) mg/dL Glucose 73 L (74-99) mg/dL POC Glucose (mg/dL) 169 H (75-99) mg/dL Calcium 8.2 L (8.4-10.2) mg/dL Crossmatch 08/21/21 08/21/21 08/21/21 Range/Units 06:12 08:45 12:13 RBC (4.30-5.90) m/uL Hgb (13.0-17.5) gm/dL Hct (39.0-53.0) % MCHC (31.0-37.0) g/dL RDW (11.5-15.5) % APTT 63.8 H (22.0-30.0) sec Sodium (137-145) mmol/L Potassium (3.5-5.1) mmol/L Carbon Dioxide (22-30) mmol/L BUN (9-20) mg/dL Creatinine (0.66-1.25) mg/dL Glucose (74-99) mg/dL POC Glucose (mg/dL) 122 H (75-99) mg/dL Calcium (8.4-10.2) mg/dL Crossmatch See Detail Microbiology - Last 24 Hours (Table) 08/16/21 08:39 Blood Culture - Preliminary Blood No Growth after 120 hours 08/17/21 06:57 Blood Culture - Preliminary Blood No Growth after 96 hours 08/18/21 05:43 Blood Culture - Preliminary Blood No Growth after 72 hours Assessment and Plan Assessment: Patient is a 46-year-old male with end-stage renal disease on dialysis at home 5 times weekly, diabetes mellitus type 2 on insulin pump, neuropathy, and multiple other comorbid conditions who presented to the ER secondary to chills and rigors. In the ER he underwent an extensive evaluation. His COVID test negative, white blood cell count was normal, chest x-ray showed no signs of pneumonia, but he wa s found to have a fever of 101.4. He was given a dose of Rocephin and Tylenol. Blood cultures positive for MSSA, of note patient just completed a greater than 6 week course of IV ABX for MSSA line infection with removal/line holiday/ and line reinsertion. He had decreased responsiveness on 08/08 and ABG showed CO2 retention and he was started on BiPap. His mentation improved. He again was found to have persistent MSSA bacteremia. Underwent a tagged white blood cell scan which did not demonstrate any signs of infection, CT chest, abdomen, and pelvis also without signs of infection. He was persistently bacteremic. We attempted to treat with cathater in place due to poor access, but patient remained bacteremic. His dialysis catheter was removed on 08/17. New right IJ dialysis access inserted on 08/20 with some oozing blood from around it. Recurrent MSSA bacteremia ESRD with HD cath right chest well, on HD 5 times weekly at home - Antibiotic management by infectious disease - nephrology, ID, and vascular recs -TTE EF 55-60%, paradoxical septal wall motion - repeat cultures are positive from 08/14, cultures 08/16 negative to date -Dialysis catheter holiday between 08/17-08/20 Acute blood loss anemia on anemia of chronic disease -1 unit of PRBC transfused on 08/21 DM 1 with insulin pump at home Neuropathy - continue with trulicity - insulin pump - follow BS - last A1C 5.9 - lyrica Recent Pulmonary Embolism - heparin gtt - likely home on coumadin if need rifampin? Acute metabolic encephalopathy, resolved
--- NOTE | 2021-08-21 15:25 | P.PN ---
Subjective Progress Note Date: 08/21/21 Patient was seen and examined sitting up in bed. He is status post tunneled dialysis catheter placement yesterday in the right groin. Apparently through the night patient had been having some bleeding from the access site. He was not IV heparin which was discontinued this morning. His hemoglobin this morning was 6.8. 1 unit of PRBC transfusion ordered. He is currently undergoing hemodialysis without any difficulty. Objective - Vital Signs Vital signs: Vital Signs Temp 97.3 F L 08/21/21 13:42 Pulse 91 08/21/21 13:42 Resp 18 08/21/21 13:42 BP 108/59 08/21/21 13:42 Pulse Ox 96 08/21/21 13:42 Intake & Output 08/20/21 08/21/21 08/21/21 18:59 06:59 18:59 Intake Total 538.127 457 9439.906 Output Total 125 475 0 Balance 413.767 -235 1248.906 Weight 112 kg Intake: Intake, IV Titration 178.767 98.906 Amount Heparin Sod,Pork in 0.45% 178.767 98.906 NaCl 25,000 unit In 0.45 % NaCl 1 250ml.bag @ 18 UNITS/KG/HR 17.226 mls/hr IV .[id number] [facility] Rx#: [id number] Oral 360 240 840 Blood Product 310 Rc As-1 Unit 310 [id number] Output: Urine 125 475 Stool 0 0 Other: Voiding Method Urinal Urinal Urinal # Voids 1 - Exam General appearance: The patient is alert, oriented, appears in no acute distress. Obese. HET: Head is normocephalic and atraumatic. Pupils are equal and reactive. Oropharynx is clear without lesions. Neck: Supple without lymphadenopathy. Trachea midline. Previous right IJ tunneled catheter site with sutures intact without any bleeding. Abdomen: Soft, nontender, nondistended. Obese. Extremities: Normal skin color and turgor. Right groin with tunneled catheter intact with pressure dressing, did not appear to have active bleeding. Mild tenderness at site. Neurological: No focal deficits. Strength and sensation are grossly intact. - Labs CBC & Chem 7: 08/21/21 06:12 08/21/21 06:12 Labs: Abnormal Lab Results - Last 24 Hours (Table) 08/20/21 08/20/21 08/20/21 Range/Units 16:08 20:08 23:48 RBC (4.30-5.90) m/uL Hgb (13.0-17.5) gm/dL Hct (39.0-53.0) % MCHC (31.0-37.0) g/dL RDW (11.5-15.5) % APTT 59.8 H (22.0-30.0) sec Sodium (137-145) mmol/L Potassium (3.5-5.1) mmol/L Carbon Dioxide (22-30) mmol/L BUN (9-20) mg/dL Creatinine (0.66-1.25) mg/dL Glucose (74-99) mg/dL POC Glucose (mg/dL) 71 L 127 H (75-99) mg/dL Calcium (8.4-10.2) mg/dL Crossmatch 08/21/21 08/21/21 08/21/21 Range/Units 02:07 06:12 06:12 RBC 2.36 L (4.30-5.90) m/uL Hgb 6.8 L* D (13.0-17.5) gm/dL Hct 22.3 L (39.0-53.0) % MCHC 30.6 L (31.0-37.0) g/dL RDW 16.6 H (11.5-15.5) % APTT (22.0-30.0) sec Sodium 133 L (137-145) mmol/L Potassium 5.3 H (3.5-5.1) mmol/L Carbon Dioxide 21 L (22-30) mmol/L BUN 64 H (9-20) mg/dL Creatinine 11.24 H* (0.66-1.25) mg/dL Glucose 73 L (74-99) mg/dL POC Glucose (mg/dL) 169 H (75-99) mg/dL Calcium 8.2 L (8.4-10.2) mg/dL Crossmatch 08/21/21 08/21/21 08/21/21 Range/Units 06:12 08:45 12:13 RBC (4.30-5.90) m/uL Hgb (13.0-17.5) gm/dL Hct (39.0-53.0) % MCHC (31.0-37.0) g/dL RDW (11.5-15.5) % APTT 63.8 H (22.0-30.0) sec Sodium (137-145) mmol/L Potassium (3.5-5.1) mmol/L Carbon Dioxide (22-30) mmol/L BUN (9-20) mg/dL Creatinine (0.66-1.25) mg/dL Glucose (74-99) mg/dL POC Glucose (mg/dL) 122 H (75-99) mg/dL Calcium (8.4-10.2) mg/dL Crossmatch See Detail Microbiology - Last 24 Hours (Table) 08/16/21 08:39 Blood Culture - Preliminary Blood No Growth after 120 hours 08/17/21 06:57 Blood Culture - Preliminary Blood No Growth after 96 hours 08/18/21 05:43 Blood Culture - Preliminary Blood No Growth after 72 hours Assessment and Plan Assessment: 1. Status post tunneled hemodialysis catheter via right femoral vein with bleeding at site 2. End-stage renal disease on hemodialysis 3. Bacteremia, MSSA 4. History of pulmonary embolism on Eliquis 5. Type 2 diabetes 6. History of peripheral vascular disease, status post right BKA Plan: 1. Discontinue IV heparin 2. Hold anticoagulation for 1-2 days 3. 1 unit PRBC transfusion ordered 4. Repeat CBC at 1400 5. Repeat CBC in the a.m. 6. Continue hemodialysis per recommendations from nephrology 7. Call vascular surgery with any further signs of bleeding from groin site The impression and plan of care has been dictated as directed. Dr. Turner I performed a history and examination of this patient, discussed the same with the dictator. I agree with the dictator's note ,documented as a scribe. Any additional findings or plans will be noted.
[2021-08-21 16:40] LABS: Glucose,Whole Blood 135 mg/dL (75-99)
[2021-08-21 18:55] LABS: Anisocytosis Slight; HCT 25.1 % (39.0-53.0); HGB 8.2 gm/dL (13.0-17.5); Hypochromasia Slight; MCH 30.6 pg (25.0-35.0); MCHC 32.5 g/dL (31.0-37.0); MCV 93.9 fL (80.0-100.0); Mean Platelet Volume 9.1; Platelet Count 278 k/uL (150-450); RBC 2.67 m/uL (4.30-5.90); RDW 16.2 % (11.5-15.5); WBC 8.6 k/uL (3.8-10.6)
[2021-08-21 20:04] LABS: Glucose,Whole Blood 135 mg/dL (75-99)
[2021-08-21] MEDS ORDERED: HYDROmorphone 0.5 MG/0.5 ML SYRINGE IM STA (20:14)
[2021-08-21] MEDS: NON FORMULARY DRUG (Vilazodone Hcl [Viibryd] 40 MG Tablet) PO SCH (20:59)
[2021-08-21] MEDS: traZODone HCL 100 MG TAB PO SCH (21:03)
[2021-08-21] MEDS: CALCIUM CARBONATE 500 MG CHEWABLE PO PRN (22:55)
--- NOTE | 2021-08-22 01:36 | CT ---
EXAMINATION TYPE: CT abdomen pelvis wo con DATE OF EXAM: 08/22/2021 COMPARISON: 08/15/2021 HISTORY: right flank and back pain. r/u retroperitoneal bleed CT DLP: 1040.4 mGycm Automated exposure control for dose reduction was used. Images obtained from the diaphragm to the floor the pelvis with no contrast. There are some pre-exist ing contrast in the large bowel. There is subsegmental atelectasis at the lung bases. Heart size is normal. There is no pericardial ef fusion. Liver spleen stomach pancreas gallbladder appear intact. Bile ducts are not dilated. There is no adrenal mass. Kidneys show normal size and contour. There is no hydronephrosis. There is 2 cm parapelvic cyst interpolar right kidney. Ureters are not dilated. There is no retroperitoneal ad enopathy. Bladder distends smoothly. There is no inguinal hernia. There is no free fluid in the pelvi s. Appendix appears normal. There is no mesenteric edema. There is no ascites or free air. There is n o sign of a bowel obstruction. There is mild subcutaneous edema over the lower lumbar spine. The lumbar vertebra have normal alignme nt. Posterior elements are intact. There is no compression fracture. The bony pelvis is intact. Hip j oints are intact. IMPRESSION: There is mild subsegmental atelectasis at the lung bases. No acute abnormality within the abdomen pel vis. No adverse change compared to old exam.
[2021-08-22 01:52] LABS: Anisocytosis Slight; Basophils # (A) 0.1 k/uL (0-0.2); Basophils % (A) 1 %; Eosinophils # (A) 0.2 k/uL (0-0.7); Eosinophils % (A) 2 %; HCT 26.8 % (39.0-53.0); HGB 8.2 gm/dL (13.0-17.5); Hypochromasia Moderate; Lymphocytes % (A) 13 %; MCH 29.4 pg (25.0-35.0); MCHC 30.7 g/dL (31.0-37.0); MCV 95.6 fL (80.0-100.0); Mean Platelet Volume 9.1; Monocytes # (A) 0.4 k/uL (0-1.0); Monocytes % (A) 5 %; Neutrophils # (A) 5.6 k/uL (1.3-7.7); Neutrophils % (A) 76 %; Platelet Count 281 k/uL (150-450); RBC 2.81 m/uL (4.30-5.90); WBC 7.3 k/uL (3.8-10.6)
[2021-08-22 01:57] LABS: Glucose,Whole Blood 76 mg/dL (75-99)
[2021-08-22] MEDS: HYDROmorphone 0.5 MG/0.5 ML SYRINGE IVP PRN ×2 (01:57→05:48)
[2021-08-22 02:39] LABS: Calcium 8.9 mg/dL (8.4-10.2); Potassium 4.7 mmol/L (3.5-5.1)
[2021-08-22] MEDS: oxyCODONE-APAP 10-325MG 1 EACH TAB PO PRN ×4 (04:36→22:22)
[2021-08-22 05:54] LABS: Glucose,Whole Blood 94 mg/dL (75-99)
[2021-08-22] MEDS: INSULIN PUMP MEAL BOLUS 1 UNIT MISC MISCELLANE SCH ×4 (06:05→22:30)
[2021-08-22] MEDS: PANTOPRAZOLE 40 MG TABLET PO SCH (06:12)
[2021-08-22] MEDS: METOCLOPRAMIDE 5 MG TAB PO SCH ×3 (06:12→17:58)
[2021-08-22] MEDS: MIDODRINE 5 MG TAB PO SCH ×4 (06:12→16:29)
[2021-08-22] MEDS: NON FORMULARY DRUG (Dulaglutide [Trulicity] 1.5 MG/0.5 ML Each) SQ SCH (09:00)
[2021-08-22] MEDS ORDERED: DIAZEPAM 5 MG/ML 2 ML INJ IVP STA (09:48)
[2021-08-22] MEDS: PREGABALIN 100 MG CAP PO SCH ×3 (09:59→21:30)
[2021-08-22] MEDS: ONDANSETRON 4 MG TAB PO SCH ×2 (09:59→21:32)
[2021-08-22] MEDS: rifAMPin 300 MG CAP PO SCH ×2 (10:00→22:22)
[2021-08-22] MEDS: ASPIRIN 81 MG PO SCH (10:00)
[2021-08-22] MEDS: FUROSEMIDE 80 MG TAB PO SCH ×2 (10:00→15:02)
[2021-08-22] MEDS: TIMOLOL 0.5% OPHTH DROPS 5 ML BTL RIGHT EYE SCH ×2 (10:00→21:33)
[2021-08-22] MEDS: DIALYVITE PO SCH (10:01)
[2021-08-22 11:36] LABS: Glucose,Whole Blood 94 mg/dL (75-99)
[2021-08-22] MEDS: HYDROmorphone 1 MG/ML 1 ML SYRINGE IVP PRN ×4 (11:43→21:32)
--- NOTE | 2021-08-22 11:43 | PN ---
PROGRESS NOTE Patient is seen for followup for end-stage renal disease. This morning he is complaining of back pain, for which he is receiving Valium, and [place] was increased as well. He tolerated dialysis very well yesterday with UF of about 3 L. On examination today, patient is comfortable. He is complaining of back pain; no acute distress. Blood pressure 152/74, heart rate 103 per minute. He is afebrile. EXAMINATION OF THE HEART: S1 and S2. EXAMINATION OF LUNGS: Bilateral breath sounds are heard. Abdomen is soft. Examination of lower extremities shows right BKA. Much improved edema in the left lower extremity. INTERNAL REVENUE AGENT EXAM: Grossly intact. Labs show sodium 135, potassium 4.7, BUN 30, creatinine 6.5, hemoglobin 8.2 g/dL. ASSESSMENT: 1. End-stage renal disease, on hemodialysis on a Friday, Friday, Friday schedule here. 2. MSSA bacteremia, status post removal of IJ cath and placement of right femoral PermCath. 3. Bleeding/oozing from the site of the catheter, status post DDAVP yesterday, currently with pressure dressing on. Monitor hemoglobin. 4. Chronic kidney disease mineral bone disorder. 5. History of massive pulmonary embolism, currently off of anticoagulation due to ongoing bleeding. 6. Volume overload, currently improved. PLAN: Add Aranesp. We will plan for hemodialysis tomorrow and eventually switch over to Friday, Friday, Friday schedule. DIANDRA / ODESSAN: [id number] /
[2021-08-22] MEDS: CALCIUM ACETATE 667 MG TAB PO SCH (11:45)
[2021-08-22] MEDS ORDERED: DARBEPOETIN ALFA 60 MCG/0.3 ML SYRINGE SQ SCH (14:00)
[2021-08-22] MEDS ORDERED: NON FORMULARY DRUG (Dulaglutide [Trulicity] 1.5 MG/0.5 ML Each) SQ SCH (14:00)
--- NOTE | 2021-08-22 15:39 | P.PN ---
<Luna Skaggs - Last Filed: 08/22/21 15:33> Subjective Progress Note Date: 08/22/21 The patient was seen and examined sitting in the recliner. Patient states he's been having significant back pain that started yesterday evening. He had a CT of the abdomen and pelvis and to rule out retroperitoneal bleed. CT of abdomen and pelvis reviewed, no evidence of retroperitoneal bleed. No acute findings. Patient has a right groin tunneled dialysis catheter. yesterday he was having bleeding from the site. It was treated with gel foam and thrombin yesterday. bleeding has improved. Still has some bleeding butcertainly improved. Hemoglobin was stable today at 8.2. yesterday he did undergo hemodialysis without any complications. His heparin drip has been on hold as well as his Eliquis. Objective - Vital Signs Vital signs: Vital Signs Temp 97.4 F L 08/22/21 11:30 Pulse 85 08/22/21 11:30 Resp 20 08/22/21 11:30 BP 180/94 08/22/21 11:30 Pulse Ox 97 08/22/21 11:30 Intake & Output 08/21/21 08/22/21 08/22/21 18:59 06:59 18:59 Intake Total 1368.906 420 110 Output Total 0 400 25 Balance 1368.906 20 85 Weight 97.5 kg Intake: IV 10 Invasive Line 8 10 Intake, IV Titration 98.906 Amount Heparin Sod,Pork in 0.45% 98.906 NaCl 25,000 unit In 0.45 % NaCl 1 250ml.bag @ 18 UNITS/KG/HR 17.226 mls/hr IV .[id number] [facility] Rx#: [id number] Oral 960 420 100 Blood Product 310 Rc As-1 Unit 310 [id number] Output: Urine 400 25 Stool 0 Other: Voiding Method Urinal # Bowel Movements 1 - Exam General appearance: The patient is alert, oriented, appears in no acute distress. Obese. HET: Head is normocephalic and atraumatic. Pupils are equal and reactive. Oropharynx is clear without lesions. Neck: Supple without lymphadenopathy. Trachea midline. Previous right IJ tunneled catheter site with sutures intact without any bleeding. Abdomen: Soft, nontender, nondistended. Obese. Extremities: Normal skin color and turgor. Right groin with tunneled catheter intact with small amount of bleeding. Pressure dressing re-applied. Neurological: No focal deficits. Strength and sensation are grossly intact. - Labs CBC & Chem 7: 08/22/21 01:40 08/22/21 01:40 Labs: Abnormal Lab Results - Last 24 Hours (Table) 08/21/21 08/21/21 08/21/21 Range/Units 16:36 18:29 18:36 RBC 2.67 L (4.30-5.90) m/uL Hgb 8.2 L (13.0-17.5) gm/dL Hct 25.1 L (39.0-53.0) % MCHC (31.0-37.0) g/dL RDW 16.2 H (11.5-15.5) % APTT 40.9 H (22.0-30.0) sec Sodium (137-145) mmol/L BUN (9-20) mg/dL Creatinine (0.66-1.25) mg/dL POC Glucose (mg/dL) 135 H (75-99) mg/dL 08/21/21 08/22/21 08/22/21 Range/Units 20:03 01:40 01:40 RBC 2.81 L (4.30-5.90) m/uL Hgb 8.2 L (13.0-17.5) gm/dL Hct 26.8 L (39.0-53.0) % MCHC 30.7 L (31.0-37.0) g/dL RDW 16.0 H (11.5-15.5) % APTT (22.0-30.0) sec Sodium 135 L (137-145) mmol/L BUN 30 H (9-20) mg/dL Creatinine 6.50 H (0.66-1.25) mg/dL POC Glucose (mg/dL) 135 H (75-99) mg/dL Microbiology - Last 24 Hours (Table) 08/16/21 08:39 Blood Culture - Final Blood No Growth after 144 hours 08/17/21 06:57 Blood Culture - Preliminary Blood No Growth after 120 hours 08/18/21 05:43 Blood Culture - Preliminary Blood No Growth after 96 hours Assessment and Plan Assessment: 1. Status post tunneled hemodialysis catheter via right femoral vein with bleeding at site 2. End-stage renal disease on hemodialysis 3. Bacteremia, MSSA 4. History of pulmonary embolism on Eliquis 5. Type 2 diabetes 6. History of peripheral vascular disease, status post right BKA Plan: 1. Hold anticoagulation for another 1-2 days 2. Repeat CBC in morning 3. Continue hemodialysis per recommendations from nephrology 4. Encourage ambulation, Physical therapy on consult The impression and plan of care has been dictated as directed. Dr. Fontenot I performed a history and examination of this patient, discussed the same with the dictator. I agree with the dictator's note ,documented as a scribe. Any additional findings or plans will be noted. <Kobe Fontenot - Last Filed: 08/23/21 07:59> Subjective Dressing removerd No evidence of active bleeding. Pressure dressing reapplied. Objective - Vital Signs Vital signs: Vital Signs Temp 98.6 F 08/23/21 04:00 Pulse 91 08/23/21 04:00 Resp 22 08/23/21 04:00 BP 151/74 08/23/21 04:00 Pulse Ox 93 L 08/23/21 04:00 Intake & Output 08/22/21 08/23/21 08/23/21 18:59 06:59 18:59 Intake Total 120 240 Output Total 25 300 Balance 95 -60 Weight 98.2 kg Intake: IV 20 Invasive Line 10 10 Invasive Line 8 10 Oral 100 240 Output: Urine 25 300 Other: # Voids 0 - Labs CBC & Chem 7: 08/22/21 01:40 08/22/21 01:40 Labs: Abnormal Lab Results - Last 24 Hours (Table) 08/22/21 08/22/21 08/22/21 Range/Units 16:38 16:51 17:00 POC Glucose (mg/dL) 62 L 66 L 72 L (75-99) mg/dL 08/22/21 08/22/21 08/23/21 Range/Units 18:39 22:26 02:18 POC Glucose (mg/dL) 130 H 121 H 57 L (75-99) mg/dL 08/23/21 08/23/21 08/23/21 Range/Units 02:32 02:47 05:29 POC Glucose (mg/dL) 57 L 62 L 232 H (75-99) mg/dL 08/23/21 Range/Units 07:47 POC Glucose (mg/dL) 172 H (75-99) mg/dL Microbiology - Last 24 Hours (Table) 08/16/21 08:39 Blood Culture - Final Blood No Growth after 144 hours 08/17/21 06:57 Blood Culture - Preliminary Blood No Growth after 120 hours 08/18/21 05:43 Blood Culture - Preliminary Blood No Growth after 96 hours
[2021-08-22] MEDS: SENNOSIDES-DOCUSATE SODIUM 1 EACH TAB PO PRN (16:30)
[2021-08-22 16:41] LABS: Glucose,Whole Blood 62 mg/dL (75-99)
[2021-08-22 16:53] LABS: Glucose,Whole Blood 66 mg/dL (75-99)
[2021-08-22 17:01] LABS: Glucose,Whole Blood 72 mg/dL (75-99)
[2021-08-22] MEDS: NON FORMULARY DRUG (Vilazodone Hcl [Viibryd] 40 MG Tablet) PO SCH (17:21)
--- NOTE | 2021-08-22 17:28 | PN ---
PROGRESS NOTE DATE OF SERVICE: 08/22/2021 REASON FOR FOLLOWUP: MSSA bacteremia secondary to PermCath infection. INTERVAL HISTORY: The patient is afebrile. The patient has been breathing comfortably. Denies having any chest pain or shortness of breath or cough. abdominal pain, for which the patient did have completed yesterday. No vomiting or diarrhea. PHYSICAL EXAMINATION: Blood pressure 146/70 with a pulse of 70, temperature 97.4. He is 97% on 3 L nasal cannula. General description is a middle-aged male lying in bed in no distress. RESPIRATORY SYSTEM: Unlabored breathing. Clear to auscultation anteriorly. HEART: S1, S2. Regular rate and rhythm. ABDOMEN: Soft. No tenderness. LABS: Hemoglobin , creatinine 6.50. Blood culture repeat has been negative. DIAGNOSTIC IMPRESSION AND PLAN: Patient with MSSA bacteremia concerning for a PermCath infection, which has been discontinued. The patient has cleared his bacteremia. The patient did have extensive workup, including CT of chest, abdomen and pelvis that was done with contrast. It did not show any abnormality, although the thoracic lumbar spine on the ANNABELLE was negative. We will extend his IV cefazolin with dialysis for a total of 6 weeks followed by antibiotic therapy in the form of oral Keflex. Patient has been advised to increase his probiotic and yogurt intake to decrease risk of C difficile colitis. Plan of care was discussed with the medical team. DIANDRA / ODESSAN: [id number] /
[2021-08-22 18:39] LABS: Glucose,Whole Blood 130 mg/dL (75-99)
--- NOTE | 2021-08-22 20:30 | P.PN ---
Subjective Progress Note Date: 08/22/21 (delayed charting seen at 10 am) Principal diagnosis: altered mentation Patient is a 46-year-old male with end-stage renal disease on dialysis at home 5 times weekly, diabetes mellitus type 2 on insulin pump, neuropathy, and multiple other comorbid conditions who presented to the ER secondary to chills and rigors. In the ER he underwent an extensive evaluation. His COVID test negative, white blood cell count was normal, chest x-ray showed no signs of pneumonia, but he was found to have a fever of 101.4. He was given a dose of Rocephin and Tylenol agents made for admission. Blood cultures positive for MSSA, of not patient just completed a greater than 6 week course of IV ABX for MSSA line infection with removal/line holiday/ and line reinsertion. He had decreased responsiveness on 08/08 and ABG showed CO2 retention and he was started on BiPap. His mentation improved. He again was found to have persistent MSSA bacteremia. Underwent a tagged white blood cell scan which did not demonstrate any signs of infection, CT chest, abdomen, and pelvis also witho ut signs of infection. He was persistently bacteremic. We attempted to treat with cathater in place due to poor access, but patient remained bacteremic. He was taken off eliquis to start rifampim, and started on heparin gtt. HD cath removed and reinserted on 08/20. Had some bleeding s/p reinsertion and heparin gtt on hold. Will need prolonged course of IV abx with HD. Patient seen and examined at bedside. C/O back pain and nausea, dilaudid not taking pain away, bleeding from HD cath site slowed. No diarrhea. General: ill appearing, mild distress due to pain, appears at stated age Derm: warm, dry, multiple tattoos Head: atraumatic, normocephalic, symmetric Eyes: EOMI, no lid lag, anicteric sclera Mouth: no lip lesion, mucus membranes dry Cardiovascular: S1S2 reg, no murmur, positive posterior tibial pulse left lower extremity, Lungs: Course bs bilateral, no rhonchi, no rales , no accessory muscle use Abdominal: soft, nontender to palpation, no guarding, no appreciable organ omegaly Ext: no gross muscle atrophy, no edema, no contractures Neuro: CN II-XI grossly intact, no focal neuro deficits Psych: Alert, oriented, appropriate affect Recurrent MSSA bacteremia ESRD with HD cath right chest well, on HD 5 times weekly at home - cefazolin, rifampin - nephrology, ID, and vascular recs -TTE EF 55-60%, paradoxical septal wall motion - repeat cultures are positive from 08/14, cultures 08/16 negative for 24 hours. -had line holiday 08/17-08/20 with reinsertion Acute back pain - increase dilaudid - resume home dose of lyrica - add valium X 1 - concern for possible discitis, but no indication on CT abd/pelvis yesterday, D/W ID 4-6 week IV ABX. DM 1 with insulin pump at home with hypoglycemia Neuropathy - continue with trulicity - insulin pump on hold - follow BS - last A1C 5.9 - lyrica Anemia of end stage renal disease Acute blood loss anemia - stable now - follow CBC - off anticoagulation for 2 days due to bleeding from HD cath site per vascular surgery Recent Pulmonary Embolism off anticoagulation for 2 days due to bleeding from HD cath site per vascular surgery - likely home on coumadin if need rifampin, will also increase coumadin levels but can have assessed 3X weekly at HD will discuss with pharmacy Acute metabolic encephalopathy, resolved DVT prophylaxis: SCDs, ambulation Discussed with: patient, nursing, Anticipated discharge date:undetermined Anticipated discharge place: undetermined A total of 35 minutes was spent on the care of this complex patient more than 50% of the time was spent in counseling and care coordination. Objective - Vital Signs Vital signs: Vital Signs Temp 98.2 F 08/22/21 19:56 Pulse 97 08/22/21 19:56 Resp 20 08/22/21 19:56 BP 133/72 08/22/21 19:56 Pulse Ox 96 08/22/21 19:56 Intake & Output 08/22/21 08/22/21 08/23/21 06:59 18:59 06:59 Intake Total 420 120 Output Total 400 25 Balance 20 95 Weight 97.5 kg Intake: IV 20 Invasive Line 10 10 Invasive Line 8 10 Oral 420 100 Output: Urine 400 25 - Labs CBC & Chem 7: 08/22/21 01:40 08/22/21 01:40 Labs: Abnormal Lab Results - Last 24 Hours (Table) 08/22/21 08/22/21 08/22/21 Range/Units 01:40 01:40 16:38 RBC 2.81 L (4.30-5.90) m/uL Hgb 8.2 L (13.0-17.5) gm/dL Hct 26.8 L (39.0-53.0) % MCHC 30.7 L (31.0-37.0) g/dL RDW 16.0 H (11.5-15.5) % Sodium 135 L (137-145) mmol/L BUN 30 H (9-20) mg/dL Creatinine 6.50 H (0.66-1.25) mg/dL POC Glucose (mg/dL) 62 L (75-99) mg/dL 08/22/21 08/22/21 08/22/21 Range/Units 16:51 17:00 18:39 RBC (4.30-5.90) m/uL Hgb (13.0-17.5) gm/dL Hct (39.0-53.0) % MCHC (31.0-37.0) g/dL RDW (11.5-15.5) % Sodium (137-145) mmol/L BUN (9-20) mg/dL Creatinine (0.66-1.25) mg/dL POC Glucose (mg/dL) 66 L 72 L 130 H (75-99) mg/dL Microbiology - Last 24 Hours (Table) 08/16/21 08:39 Blood Culture - Final Blood No Growth after 144 hours 08/17/21 06:57 Blood Culture - Preliminary Blood No Growth after 120 hours 08/18/21 05:43 Blood Culture - Preliminary Blood No Growth after 96 hours
[2021-08-22] MEDS: traZODone HCL 100 MG TAB PO SCH (21:32)
[2021-08-22 22:33] LABS: Glucose,Whole Blood 121 mg/dL (75-99)
[2021-08-23] MEDS: HYDROmorphone 1 MG/ML 1 ML SYRINGE IVP PRN ×4 (00:32→09:59)
[2021-08-23 00:50] VITALS: RESP 22
[2021-08-23 02:20] LABS: Glucose,Whole Blood 57 mg/dL (75-99)
[2021-08-23 02:34] LABS: Glucose,Whole Blood 57 mg/dL (75-99)
[2021-08-23 02:49] LABS: Glucose,Whole Blood 62 mg/dL (75-99)
[2021-08-23 03:03] LABS: Glucose,Whole Blood 77 mg/dL (75-99)
[2021-08-23] MEDS: oxyCODONE-APAP 10-325MG 1 EACH TAB PO PRN (05:25)
[2021-08-23] MEDS: METOCLOPRAMIDE 5 MG TAB PO SCH ×2 (05:25→12:48)
[2021-08-23] MEDS: PANTOPRAZOLE 40 MG TABLET PO SCH (05:25)
[2021-08-23 05:31] LABS: Glucose,Whole Blood 232 mg/dL (75-99)
[2021-08-23] MEDS: INSULIN PUMP MEAL BOLUS 1 UNIT MISC MISCELLANE SCH ×2 (05:31→12:42)
[2021-08-23] MEDS: MIDODRINE 5 MG TAB PO SCH ×2 (06:24→12:46)
[2021-08-23 07:49] LABS: Glucose,Whole Blood 172 mg/dL (75-99)
[2021-08-23] MEDS: rifAMPin 300 MG CAP PO SCH (09:59)
[2021-08-23] MEDS: ONDANSETRON 4 MG TAB PO SCH (09:59)
[2021-08-23] MEDS: FUROSEMIDE 80 MG TAB PO SCH (09:59)
[2021-08-23] MEDS: PREGABALIN 100 MG CAP PO SCH (09:59)
[2021-08-23] MEDS: ASPIRIN 81 MG PO SCH (09:59)
[2021-08-23] MEDS ORDERED: diazePAM 2 MG TAB PO PRN (10:03)
[2021-08-23] MEDS: DIALYVITE PO SCH (10:06)
[2021-08-23] MEDS: TIMOLOL 0.5% OPHTH DROPS 5 ML BTL RIGHT EYE SCH (10:06)
[2021-08-23 11:57] LABS: Glucose,Whole Blood 73 mg/dL (75-99)
--- NOTE | 2021-08-23 12:17 | P.PN ---
Subjective Progress Note Date: 08/23/21 The patient was seen and examined sitting in the recliner. States that back pain has improved significantly. He was up and ambulating yesterday. He has his right prosthetic in place. Bleeding has been controlled at the tunneled catheter site in the right groin. He has pressure dressing in place. He is scheduled for hemodialysis today. Objective - Vital Signs Vital signs: Vital Signs Temp 98.6 F 08/23/21 04:00 Pulse 91 08/23/21 04:00 Resp 22 08/23/21 04:00 BP 151/74 08/23/21 04:00 Pulse Ox 93 L 08/23/21 04:00 Intake & Output 08/22/21 08/23/21 08/23/21 18:59 06:59 18:59 Intake Total 120 240 Output Total 25 300 Balance 95 -60 Weight 98.2 kg Intake: IV 20 Invasive Line 10 10 Invasive Line 8 10 Oral 100 240 Output: Urine 25 300 Other: # Voids 0 - Exam General appearance: The patient is alert, oriented, appears in no acute distress. Obese. HET: Head is normocephalic and atraumatic. Pupils are equal and reactive. Oropharynx is clear without lesions. Neck: Supple without lymphadenopathy. Trachea midline. Previous right IJ tunneled catheter site with sutures intact without any bleeding. Abdomen: Soft, nontender, nondistended. Obese. Extremities: Normal skin color and turgor. Right groin with tunneled catheter intact with pressure dressing. No bleeding noted. Neurological: No focal deficits. Strength and sensation are grossly intact. - Labs CBC & Chem 7: 08/22/21 01:40 08/22/21 01:40 Labs: Abnormal Lab Results - Last 24 Hours (Table) 08/22/21 08/22/21 08/22/21 Range/Units 16:38 16:51 17:00 POC Glucose (mg/dL) 62 L 66 L 72 L (75-99) mg/dL 08/22/21 08/22/21 08/23/21 Range/Units 18:39 22:26 02:18 POC Glucose (mg/dL) 130 H 121 H 57 L (75-99) mg/dL 08/23/21 08/23/21 08/23/21 Range/Units 02:32 02:47 05:29 POC Glucose (mg/dL) 57 L 62 L 232 H (75-99) mg/dL 08/23/21 Range/Units 07:47 POC Glucose (mg/dL) 172 H (75-99) mg/dL Microbiology - Last 24 Hours (Table) 08/18/21 05:43 Blood Culture - Preliminary Blood No Growth after 120 hours 08/16/21 08:39 Blood Culture - Final Blood No Growth after 144 hours 08/17/21 06:57 Blood Culture - Preliminary Blood No Growth after 120 hours Assessment and Plan Assessment: 1. Status post tunneled hemodialysis catheter via right femoral vein with bleeding at site 2. End-stage renal disease on hemodialysis 3. Bacteremia, MSSA 4. History of pulmonary embolism 5. Type 2 diabetes 6. History of peripheral vascular disease, status post right BKA Plan: 1. Recommend that anticoagulation may be held indefinitely as patient is approaching 6 months status post pulmonary embolism with increased risk for bleeding. 2. Continue hemodialysis per recommendations from nephrology 3. Encourage ambulation, Physical therapy on consult 4. Patient is cleared from vascular surgery for discharge. The impression and plan of care has been dictated as directed. Dr. Fontenot I performed a history and examination of this patient, discussed the same with the dictator. I agree with the dictator's note ,documented as a scribe. Any additional findings or plans will be noted.
--- NOTE | 2021-08-23 12:33 | PN ---
PROGRESS NOTE Patient is seen for followup for end-stage renal disease. He will be getting cefazolin today with plans for discharge, and patient will be maintained on a Friday, , Friday schedule. He will continue with the rifampin for one more week. Eliquis cannot be given with the rifampin; therefore patient will be off of Eliquis for about one week and then resume it post discharge. He will be maintained on 6 weeks of cefazolin and will continue on the Keflex for the rest of his life, given his recurrent bacteremia. No significant back pain today. Overall, patient states he feels fairly well. On examination, blood pressure today was 129/77, heart rate 85 per minute. He is afebrile. EXAMINATION OF THE HEART: S1 and S2. EXAMINATION OF LUNGS: Bilateral breath sounds are heard. Abdomen is soft, non-tender. Examination of lower extremities shows 1+ edema in the ankle on the left side. Patient has right BKA. FORMING PROCESS LINE WORKER EXAM: Grossly intact. Labs are not available. ASSESSMENT: 1. End-stage renal disease, on hemodialysis. Patient will be maintained on a Friday, , Friday schedule. 2. Volume overload, currently improved. 3. MSSA bacteremia, status post removal of IJ PermCath and placement of right femoral catheter, which is a tunneled catheter. 4. History of massive pulmonary embolism. Will get hematology opinion prior to discontinuation of anticoagulation. PLAN: Patient can be discharged. Continue with cefazolin as outpatient for 6 weeks with one more week of rifampin and then switch to oral Keflex. Patient will be off of Eliquis while he is on rifampin, and then he can resume the Eliquis once he is off of the rifampin. In the meantime, the aspirin will be increased to 325 mg while patient is off of the Eliquis. This will be for about a week. MMODL / IJN: [id number] /
[2021-08-23 12:46] VITALS: BP 173/81; PULSE 89; TEMP 98.6
[2021-08-23] MEDS: CALCIUM ACETATE 667 MG TAB PO SCH (12:48)
[2021-08-23 12:58] LABS: Glucose,Whole Blood 96 mg/dL (75-99)
--- NOTE | 2021-08-23 21:29 | P.DS ---
Providers Date of admission: 08/06/21 10:00 Expected date of discharge: 08/23/21 Attending physician: Keerthi Rodriguez MD Consults: 08/06/21 09:56 Consult Physician Urgent Consulting Provider: Jinny Cope Consult Reason/Comments: Dialysis Do you want consulting provider notified?: Yes 08/07/21 13:53 Consult Physician Routine Consulting Provider: Elkin Arndt Consult Reason/Comments: fever Do you want consulting provider notified?: Yes 08/08/21 09:34 Consult Physician Routine Consulting Provider: Hieu Alatorre Consult Reason/Comments: Decreased level of consciousness Do you want consulting provider notified?: Yes 08/09/21 08:31 Consult Physician Routine Consulting Provider: Bruce Dewey Consult Reason/Comments: bactermia, concern for endocarditis Do you want consulting provider notified?: Yes 08/13/21 12:23 Consult Physician Stat Consulting Provider: Bernard Turner Consult Reason/Comments: Removal of dialysis cath Do you want consulting provider notified?: Yes Primary care physician: Baldev Ayers MD Hospital Course: Discharge Diagnosis: Recurrent MSSA bacteremia ESRD with HD cath right chest well, on HD 5 times weekly at home Acute back pain, Concern for possible discitis DM 1 with insulin pump at home with hypoglycemia Neuropathy Anemia of end stage renal disease Acute blood loss anemia Recent Pulmonary Embolism Acute metabolic encephalopathy, resolved Hospital Course: Patient is a 46-year-old male with end-stage renal disease on dialysis at home 5 times weekly, diabetes mellitus type 2 on insulin pump, neuropathy, and multiple other comorbid conditions who presented to the ER secondary to chills and rigors. In the ER he underwent an extensive evaluation. His COVID test negative, white blood cell count was normal, chest x-ray showed no signs of pneumonia, but he was found to have a fever of 101.4. He was given a dose of Rocephin and Tylenol agents made for admission. Blood cultures positive for MSSA, of not patient just completed a greater than 6 week course of IV ABX for MSSA line infection with removal/line holiday/ and line reinsertion. He had de creased responsiveness on 08/08 and ABG showed CO2 retention and he was started on BiPap. His mentation improved. He again was found to have persistent MSSA bacteremia. Underwent a tagged white blood cell scan which did not demonstrate any signs of infection, CT chest, abdomen, and pelvis also without signs of infection. He was persistently bacteremic. We attempted to treat with cathater in place due to poor access, but patient remained bacteremic. He was taken off eliquis to start rifampim, and started on heparin gtt. HD cath removed 08/17 and reinserted on 08/20. Had some bleeding s/p reinsertion and heparin gtt on hold. He developed back pain which responded well to Valium. There was concern that he may be related to possible discitis, however patient is unable to have MRI with contrast secondary to end-stage renal disease. Patient's blood cultures remained negative from 08/16 and forward. He was determined stable for discharge home. A long discussion was had between myself, nephrology, ID. Patient will remain on aspirin until he completes 2 weeks of rifampin. During that time he'll get aspirin 325 mg daily, Humulin resume Eliquis to complete his 6 months course of therapy. He will follow-up with hematology oncology for further recommendations. He will need long-term suppressive Keflex to prevent recurrence of infection. He will complete a total of 6 weeks of IV antibiotics in 2 weeks of rifampin. He is aware to return to the hospital should he have chest pain, shortness of breath, diarrhea, or recurrent fever. Follow-up:Take Aspirin 325 mg daily from today through 08/30/21 Resume Eliquis on 09/09/21 and decrease Aspirin to 81mg daily HD on Friday//Sat at noon - [phone] Completes IV antibiotics with HD on 09/27/21 Patient seen and examined at bedside. PICC line is much improved since yesterday. Valium helps as well as moving. Denies any chest pain, shortness of breath, no diarrhea. Wants to go home. Vital signs reviewed and stable. General: no toxic, no distress, appears older than stated age Derm: warm, dry, multiple tattoos Head: atraumatic, normocephalic, symmetric Eyes: EOMI, no lid lag, anicteric sclera Mouth: no lip lesion, mucus membranes dry Cardiovascular: S1S2 reg, no murmur, positive posterior tibial pulse left lower extremity, Lungs: Course bs bilateral, no rhonchi, no rales , no accessory muscle use Abdominal: soft, nontender to palpation, no guarding, no appreciable organomegaly Ext: no gross muscle atrophy, no edema, no contractures Neuro: CN II-XI grossly intact, no focal neuro deficits Psych: Alert, oriented, appropriate affect A total of 75 minutes of time were spent preparing this complex discharge summary . Patient Condition at Discharge: Stable Plan - Discharge Summary Discharge Rx Participant: No New Discharge Prescriptions: New rifAMPin [Rifadin] 300 mg PO BID #15 cap diazePAM [Valium] 2 mg PO TID PRN #6 tab PRN Reason: Spasms Continue Ergocalciferol [Vitamin D2 (DRISDOL)] 50,000 unit PO Q14D Dialyvite 1 tab PO DAILY Timolol [Betimol 0.5% Ophth Soln] 1 drop RIGHT EYE BID Omeprazole [PriLOSEC] 20 mg PO BID INSULIN LISPRO (For Pump) [humaLOG (For Pump)] 0.01 units SQ-PUMP CONTINUOUS Furosemide [Lasix] 80 mg PO BID oxyCODONE-APAP 10-325MG [Percocet 10-325 mg] 1 tab PO Q6H Pregabalin [Lyrica] 200 mg PO TID Ondansetron HCl [Zofran] 4 mg PO BID Calcium Acetate [PhosLo] 667 mg PO AC-LUNCH Dulaglutide [Trulicity] 1.5 mg SQ WE Aspirin EC [Ecotrin Low Dose] 81 mg PO DAILY Vilazodone HCl [Viibryd] 40 mg PO PC-SUPPER Sennosides/Docusate Sodium [Senna Plus 8.6-50 mg Tablet] 1 tab PO BID PRN PRN Reason: Constipation Midodrine HCl [ProAmatine] 10 mg PO TID Metoclopramide [Reglan] 5 mg PO AC-TID traZODone HCL [Desyrel] 100 mg PO HS Heparin 1000 Units/Ml 6,400 units SQ MOTUTHFRSA Discontinued Apixaban [Eliquis] 5 mg PO BID Discharge Medication List Dialyvite 1 tab PO DAILY 01/31/17 [History] Ergocalciferol [Vitamin D2 (DRISDOL)] 50,000 unit PO Q14D 01/31/17 [History] INSULIN LISPRO (For Pump) [humaLOG (For Pump)] 0.01 units SQ-PUMP CONTINUOUS 01/31/17 [History] Omeprazole [PriLOSEC] 20 mg PO BID 01/31/17 [History] Timolol [Betimol 0.5% Ophth Soln] 1 drop RIGHT EYE BID 01/31/17 [History] Furosemide [Lasix] 80 mg PO BID 10/01/20 [History] Pregabalin [Lyrica] 200 mg PO TID 10/01/20 [History] oxyCODONE-APAP 10-325MG [Percocet 10-325 mg] 1 tab PO Q6H 10/01/20 [History] Metoclopramide [Reglan] 5 mg PO AC-TID 03/16/21 [History] Midodrine HCl [ProAmatine] 10 mg PO TID 03/16/21 [History] Ondansetron HCl [Zofran] 4 mg PO BID 03/16/21 [History] Calcium Acetate [PhosLo] 667 mg PO AC-LUNCH 05/14/21 [History] Aspirin EC [Ecotrin Low Dose] 81 mg PO DAILY 08/06/21 [History] Dulaglutide [Trulicity] 1.5 mg SQ WE 08/06/21 [History] Heparin 1000 Units/Ml 6,400 units SQ MOTUTHFRSA 08/06/21 [History] Sennosides/Docusate Sodium [Senna Plus 8.6-50 mg Tablet] 1 tab PO BID PRN 08/06/21 [History] Vilazodone HCl [Viibryd] 40 mg PO PC-SUPPER 08/06/21 [History] traZODone HCL [Desyrel] 100 mg PO HS 08/06/21 [History] diazePAM [Valium] 2 mg PO TID PRN #6 tab 08/23/21 [Rx] rifAMPin [Rifadin] 300 mg PO BID #15 cap 08/23/21 [Rx] Follow up Appointment(s)/Referral(s): Eamon Lu MD [STAFF PHYSICIAN] - 2 Weeks (OFFICE WILL CALL YOU WITH APPOINTMENT DATE AND TIME.) Jinny Cope MD [STAFF PHYSICIAN] - 2 Weeks (Dr. Cope will see you at your dialysis treatment.) [facility], [NON-STAFF] - (AGENCY WILL CALL YOU.) Baldev Ayers MD [Primary Care Provider] - 08/27/21 10:45 am Elkin Arndt MD [STAFF PHYSICIAN] - 09/24/21 1:30 pm Patient Instructions/Handouts: Surgical Site Infections (DC), Bacteremia (DC) Activity/Diet/Wound Care/Special Instructions: Activity: as tolerated Diet: heart healthy, renal diet Special Instructions: Take Aspirin 325 mg daily from today through 08/30/21 Resume Eliquis on 09/09/21 and decrease Aspirin to 81mg daily HD on Friday//Sat at noon - [phone] Completed IV antibiotics with HD on 09/27/21 Discharge Disposition: HOME WITH HOME HEALTH SERVICES
== END 2021-08-23 15:41 | disposition home health service (06) | DRG 314 ==
LOC: EC 07:45 → 4SSUR 10:00 → 3SCARD 10:05
PROVIDERS: ADMIT Internal Medicine; ATTEND Internal Medicine
PROC: 5A09557 Assistance with Respiratory Ventilation, Greater than 96 Consecutive Hours, Continuous Positive Airway Pressure (ICD-10-PCS; principal; 2021-08-09)
PROC: 5A1D70Z Performance of Urinary Filtration, Intermittent, Less than 6 Hours Per Day (ICD-10-PCS; 2021-08-09)
PROC: 05PYX3Z Removal of Infusion Device from Upper Vein, External Approach (ICD-10-PCS; 2021-08-17)
PROC: 0JH63XZ Insertion of Tunneled Vascular Access Device into Chest Subcutaneous Tissue and Fascia, Percutaneous Approach (ICD-10-PCS; 2021-08-20)
PROC: 02HV33Z Insertion of Infusion Device into Superior Vena Cava, Percutaneous Approach (ICD-10-PCS; 2021-08-20)
PROC: B54BZZA Ultrasonography of Right Lower Extremity Veins, Guidance (ICD-10-PCS; 2021-08-20 07:30)
PROC: 30233N1 Transfusion of Nonautologous Red Blood Cells into Peripheral Vein, Percutaneous Approach (ICD-10-PCS; 2021-08-21)
DX: T80.219A Unspecified infection due to central venous catheter, initial encounter (principal); A41.01 Sepsis due to Methicillin susceptible Staphylococcus aureus; N18.6 End stage renal disease; G92 Toxic encephalopathy; J96.01 Acute respiratory failure with hypoxia; I12.0 Hypertensive chronic kidney disease with stage 5 chronic kidney disease or end stage renal disease; D62 Acute posthemorrhagic anemia; Z20.822 Contact with and (suspected) exposure to COVID-19; Z96.41 Presence of insulin pump (external) (internal); D63.1 Anemia in chronic kidney disease; E66.9 Obesity, unspecified; E78.5 Hyperlipidemia, unspecified; E87.5 Hyperkalemia; F41.9 Anxiety disorder, unspecified; E87.70 Fluid overload, unspecified; G47.33 Obstructive sleep apnea (adult) (pediatric); F32.9 Major depressive disorder, single episode, unspecified; K59.00 Constipation, unspecified; I27.81 Cor pulmonale (chronic); I95.89 Other hypotension; I27.29 Other secondary pulmonary hypertension; G40.909 Epilepsy, unspecified, not intractable, without status epilepticus; I08.1 Rheumatic disorders of both mitral and tricuspid valves; H66.90 Otitis media, unspecified, unspecified ear; K21.9 Gastro-esophageal reflux disease without esophagitis; K30 Functional dyspepsia; E10.51 Type 1 diabetes mellitus with diabetic peripheral angiopathy without gangrene; E10.65 Type 1 diabetes mellitus with hyperglycemia; E10.22 Type 1 diabetes mellitus with diabetic chronic kidney disease; Z79.01 Long term (current) use of anticoagulants; Z86.19 Personal history of other infectious and parasitic diseases; Z99.2 Dependence on renal dialysis; Z86.711 Personal history of pulmonary embolism; Z79.2 Long term (current) use of antibiotics; Z79.4 Long term (current) use of insulin; Z79.82 Long term (current) use of aspirin; Z79.899 Other long term (current) drug therapy; Z86.718 Personal history of other venous thrombosis and embolism; Z89.511 Acquired absence of right leg below knee; M89.9 Disorder of bone, unspecified; M89.8X9 Other specified disorders of bone, unspecified site
CPT/HCPCS: 36415; 36558; 36600; 70450; 71045; 71260; 74176; 74177; 76937; 77001; 78306; 80048; 80053; 81001; 82140; 82607; 82805; 83036; 83605; 83735; 83921; 84100; 84132; 84207; 84443; 85025; 85027; 85610; 85652; 85730; 86140; 86850; 86900; 86901; 86920; 87040; 87077; 87086; 87186; 87635; 87636; 90935; 93005; 93306; 93312; 93325; 93880; 93970; 94660; 94760; 95816; 96361; 96365; 99291

== ENCOUNTER 2021-10-18 07:15 | Inpatient (IN) | payer MEDICARE, OTHER ==
[2021-10-18] MEDS ORDERED: ACETAMINOPHEN TAB 500 MG TAB PO STA (07:41)
[2021-10-18] MEDS ORDERED: SODIUM CHLORIDE 0.9% 500 ML 500 ML IV ONE (07:52)
[2021-10-18] MEDS ORDERED: MIDODRINE 5 MG TAB PO STA (07:52)
[2021-10-18 08:07] LABS: Anisocytosis Slight; HCT 29.1 % (39.0-53.0); HGB 8.8 gm/dL (13.0-17.5); Hypochromasia Marked; MCH 31.3 pg (25.0-35.0); MCHC 30.3 g/dL (31.0-37.0); Macrocytosis Moderate; Mean Platelet Volume 12.8; RBC 2.82 m/uL (4.30-5.90); RDW 17.7 % (11.5-15.5)
[2021-10-18 08:24] LABS: VBG PH 7.36 (7.31-7.41)
--- NOTE | 2021-10-18 08:30 | XR ---
EXAMINATION TYPE: XR chest 1V portable DATE OF EXAM: 10/18/2021 COMPARISON: 08/20/2021 HISTORY: Chest pain TECHNIQUE: Single frontal view of the chest is obtained. FINDINGS: Perihilar infiltrates noted. Correlate for underlying pneumonia. The cardiac silhouette size is within normal limits. The osseous structures are intact. IMPRESSION: 1. Perihilar infiltrates noted. Correlate for underlying pneumonia.
[2021-10-18 08:44] LABS: Albumin 3.8 g/dL (3.5-5.0); Calcium 8.4 mg/dL (8.4-10.2); Magnesium 1.3 mg/dL (1.6-2.3); Total Bilirubin 0.5 mg/dL (0.2-1.3); Total Protein 6.9 g/dL (6.3-8.2)
[2021-10-18 08:45] LABS: INR 1.1 (<1.2); Partial Thromboplastin Time 27.1 sec (22.0-30.0)
[2021-10-18 08:50] LABS: Potassium 4.3 mmol/L (3.5-5.1)
[2021-10-18 08:53] LABS: MCV 103.2 fL (80.0-100.0)
[2021-10-18] MEDS ORDERED: VANCOMYCIN IV PER PHARMACY 1 EACH MISC MISCELLANE PRN (09:18)
[2021-10-18] MEDS ORDERED: LEVOFLOXACIN 750MG-D5W PMX 750 MG in DEXTROSE/WATER 1 150ML.BAG IVPB STA (09:18)
[2021-10-18] MEDS ORDERED: VANCOMYCIN 1,000 MG in SODIUM CHLORIDE 0.9% 250 ML IVPB STA (09:22)
[2021-10-18 09:32] LABS: Band Neutrophils % 5 %; Basophils # (M) 0.09 k/uL (0-0.2); Eosinophils # (M) 0.09 k/uL (0-0.7); Large Platelets Present; Lymphocytes # (M) 0.73 k/uL (1.0-4.8); Metamyelocytes # (M) 0.09 k/uL (0); Metamyelocytes % 1 %; Monocytes # (M) 0.36 k/uL (0-1.0); Neutrophils % (M) 83 %; Nucleated Red Blood Cells 1 /100 WBC (0-0); Total Cells Counted 200; WBC 9.1 k/uL (3.8-10.6)
[2021-10-18 09:33] LABS: Platelet Count 83 k/uL (150-450); Polychromasia Present
[2021-10-18] MEDS ORDERED: MAGNESIUM SULFATE-D5W PMX 1 GM in DEXTROSE/WATER 1 100ML.BAG IVPB ONE (09:39)
[2021-10-18] MEDS ORDERED: NALOXONE 0.4 MG/ML 1 ML VIAL IV PRN (09:42)
[2021-10-18] MEDS ORDERED: ACETAMINOPHEN TAB 325 MG TAB PO PRN (09:42)
--- NOTE | 2021-10-18 09:42 | ED ---
General Adult HPI - General Chief complaint: Weakness Stated complaint: Fever Time Seen by Provider: 10/18/21 07:15 Source: patient Limitations: no limitations - History of Present Illness Initial comments: 46-year-old male past medical history of diabetes, end-stage renal disease on dialysis Friday, and Friday, PE with [employer], presents emergency room with 103.1 fever. EMS was called to the patient's house because family stated that he wasn't acting right. EMS arrived and found the patient to have increased work of breathing. He's been weak, hot. He normally wears 3 L of oxygen however patient is hypoxic in the 70s on his normal 3L. he reports that he is exposed to someone that was covid positive. States that he is vaccinated and boosted with Moderna. He denies any chest pain. States it been compliant with his medications. He has not missed any dialysis sessions. He denies a cough. No abdominal pain. Patient is extremely fatigued and doesn't provide a very good history therefore the remainder of the HPI is limited - Related Data Home Medications Medication Instructions Recorded Confirmed Dialyvite 1 tab PO DAILY 01/31/17 10/18/21 Ergocalciferol [Vitamin D2 50,000 unit PO Q14D 01/31/17 10/18/21 (DRISDOL)] INSULIN LISPRO (For Pump) [humaLOG 0.01 units SQ-PUMP CONTINUOUS 01/31/17 10/18/21 (For Pump)] Omeprazole [PriLOSEC] 20 mg PO BID 01/31/17 10/18/21 Timolol [Betimol 0.5% Ophth Soln] 1 drop RIGHT EYE BID 01/31/17 10/18/21 Furosemide [Lasix] 80 mg PO BID 10/01/20 10/18/21 Pregabalin [Lyrica] 200 mg PO TID 10/01/20 10/18/21 oxyCODONE-APAP 10-325MG [Percocet 1 tab PO Q6H 10/01/20 10/18/21 10-325 mg] Metoclopramide [Reglan] 5 mg PO AC-TID 03/16/21 10/18/21 Midodrine HCl [ProAmatine] 10 mg PO TID 03/16/21 10/18/21 Ondansetron HCl [Zofran] 4 mg PO BID 03/16/21 10/18/21 Calcium Acetate [PhosLo] 667 mg PO AC-LUNCH 05/14/21 10/18/21 Aspirin EC [Ecotrin Low Dose] 81 mg PO DAILY 08/06/21 10/18/21 Dulaglutide [Trulicity] 1.5 mg SQ WE 08/06/21 10/18/21 Heparin 1000 Units/Ml 6,400 units SQ MOTUTHFRSA 08/06/21 10/18/21 Sennosides/Docusate Sodium [Senna 1 tab PO BID PRN 08/06/21 10/18/21 Plus 8.6-50 mg Tablet] Vilazodone HCl [Viibryd] 40 mg PO PC-SUPPER 08/06/21 10/18/21 traZODone HCL [Desyrel] 100 mg PO HS 08/06/21 10/18/21 Apixaban [Eliquis] 5 mg PO BID 10/18/21 10/18/21 Previous Rx's Medication Instructions Recorded diazePAM [Valium] 2 mg PO TID PRN #6 tab 08/23/21 Allergies Allergy/AdvReac Type Severity Reaction Status Date / Time No Known Allergies Allergy Verified 10/18/21 09:36 Review of Systems ROS Statement: Those systems with pertinent positive or pertinent negative responses have been documented in the HPI. ROS Other: All systems not noted in ROS Statement are negative. Past Medical History Past Medical History: Diabetes Mellitus, Dialysis, GERD/Reflux, Hyperlipidemia, Pulmonary Embolus (PE), Renal Disease, Seizure Disorder, Syncope Additional Past Medical History / Comment(s): constipation, anemia, peripheral vascular disease, diabetes mellitus on insulin pump for blood sugar control, previous history of massive pulmonary embolism - ECOS, hyperlipidemia, HD at home History of Any Multi-Drug Resistant Organisms: None Reported Additional Past Surgical History / Comment(s): tom cataract, peritoneal dialysis catheter rt side, ECOS 03/19/21, [facility] HD site left chest, right forearm fistula - no longer active, left arm fistula - no longer active, right chest HD temp. HD cath., RBKA Past Anesthesia/Blood Transfusion Reactions: No Reported Reaction Past Psychological History: Anxiety, Depression Smoking Status: Never smoker Past Alcohol Use History: None Reported Past Drug Use History: None Reported - Past Family History Mother Family Medical History: Cancer Father Family Medical History: Dementia General Exam Limitations: altered mental status General appearance: lethargic, obese Head exam: Present: atraumatic, normocephalic, normal inspection Eye exam: Present: normal appearance, PERRL, EOMI, conjunctival injection. Absent: scleral icterus, periorbital swelling ENT exam: Present: mucous membranes dry Respiratory exam: Present: rales, accessory muscle use, decreased breath sounds Cardiovascular Exam: Present: normal rhythm, tachycardia GI/Abdominal exam: Present: soft. Absent: tenderness, guarding exam: Present: other (catheter right senait) Extremities exam: Present: other (right bka) Neurological exam: Present: altered Psychiatric exam: Present: flat affect Skin exam: Present: diaphoretic Course Vital Signs 10/18/21 10/18/21 10/18/21 07:16 07:20 07:26 Temperature 103.1 F H Pulse Rate 108 H Pulse Rate [ 113 H Pulse Oximetery ] Respiratory 18 18 Rate Blood Pressure 86/55 Blood Pressure [Right Radial Artery] O2 Sat by Pulse 64 L 93 L Oximetry 10/18/21 10/18/21 10/18/21 07:42 08:03 08:33 Temperature Pulse Rate 106 H 105 H 107 H Pulse Rate [ Pulse Oximetery ] Respiratory 18 16 16 Rate Blood Pressure 77/47 82/44 91/70 Blood Pressure [Right Radial Artery] O2 Sat by Pulse 92 L 93 L 90 L Oximetry 10/18/21 10/18/21 10/18/21 09:37 10:31 11:00 Temperature 101.9 F H Pulse Rate 104 H 96 Pulse Rate [ Pulse Oximetery ] Respiratory 16 24 Rate Blood Pressure 79/54 70/41 Blood Pressure [Right Radial Artery] O2 Sat by Pulse 90 L 92 L 87 L Oximetry 10/18/21 10/18/21 10/18/21 11:05 11:20 11:36 Temperature Pulse Rate 93 92 Pulse Rate [ Pulse Oximetery ] Respiratory 24 16 Rate Blood Pressure 83/48 92/58 Blood Pressure [Right Radial Artery] O2 Sat by Pulse 93 L 92 L 95 Oximetry 10/18/21 10/18/21 10/18/21 11:57 11:59 12:23 Temperature Pulse Rate 88 91 90 Pulse Rate [ Pulse Oximetery ] Respiratory 16 16 16 Rate Blood Pressure 79/50 93/53 88/37 Blood Pressure [Right Radial Artery] O2 Sat by Pulse 89 L 89 L 91 L Oximetry 10/18/21 10/18/21 10/18/21 12:49 12:50 13:23 Temperature 98.3 F Pulse Rate 88 89 93 Pulse Rate [ Pulse Oximetery ] Respiratory 18 15 16 Rate Blood Pressure 90/53 90/53 75/43 Blood Pressure [Right Radial Artery] O2 Sat by Pulse 93 L 92 L Oximetry 10/18/21 10/18/21 10/18/21 14:05 15:29 15:44 Temperature Pulse Rate 86 86 85 Pulse Rate [ Pulse Oximetery ] Respiratory 20 16 16 Rate Blood Pressure 81/65 83/51 68/42 Blood Pressure [Right Radial Artery] O2 Sat by Pulse 91 L 94 L Oximetry 10/18/21 10/18/21 10/18/21 15:58 16:22 16:36 Temperature Pulse Rate 86 91 Pulse Rate [ Pulse Oximetery ] Respiratory 24 16 Rate Blood Pressure 70/38 90/57 104/50 Blood Pressure [Right Radial Artery] O2 Sat by Pulse 93 L 93 L Oximetry 10/18/21 10/18/21 10/18/21 17:00 18:31 19:00 Temperature 97.5 F L Pulse Rate 96 105 H 100 Pulse Rate [ Pulse Oximetery ] Respiratory 16 16 3 L Rate Blood Pressure 116/51 81/53 92/50 Blood Pressure [Right Radial Artery] O2 Sat by Pulse 93 L 94 L 97 Oximetry 10/18/21 10/18/21 10/18/21 19:10 19:20 19:30 Temperature Pulse Rate 99 109 H 107 H Pulse Rate [ Pulse Oximetery ] Respiratory 18 24 8 L Rate Blood Pressure 77/53 113/72 79/44 Blood Pressure [Right Radial Artery] O2 Sat by Pulse 97 86 L 95 Oximetry 10/18/21 10/18/21 10/18/21 19:40 19:50 20:00 Temperature Pulse Rate 103 H 103 H 106 H Pulse Rate [ Pulse Oximetery ] Respiratory 19 20 12 Rate Blood Pressure 79/44 96/44 96/44 Blood Pressure [Right Radial Artery] O2 Sat by Pulse 96 96 97 Oximetry 10/18/21 10/18/21 10/18/21 20:10 20:20 20:30 Temperature Pulse Rate 104 H 105 H 105 H Pulse Rate [ Pulse Oximetery ] Respiratory 15 63 H 13 Rate Blood Pressure 98/60 98/60 72/36 Blood Pressure [Right Radial Artery] O2 Sat by Pulse 96 Oximetry 10/18/21 10/18/21 10/18/21 20:40 20:50 21:00 Temperature Pulse Rate 101 H 103 H 100 Pulse Rate [ Pulse Oximetery ] Respiratory 8 L 20 13 Rate Blood Pressure 72/36 94/81 94/81 Blood Pressure [Right Radial Artery] O2 Sat by Pulse Oximetry 10/18/21 10/18/21 10/18/21 21:10 21:20 21:30 Temperature Pulse Rate 103 H 122 H Pulse Rate [ Pulse Oximetery ] Respiratory 0 L 36 H 9 L Rate Blood Pressure 84/40 84/40 83/54 Blood Pressure [Right Radial Artery] O2 Sat by Pulse Oximetry 10/18/21 10/18/21 10/18/21 21:40 21:50 22:00 Temperature Pulse Rate 114 H 115 H 113 H Pulse Rate [ Pulse Oximetery ] Respiratory 22 21 26 H Rate Blood Pressure 83/54 83/54 Blood Pressure [Right Radial Artery] O2 Sat by Pulse Oximetry 10/18/21 10/18/21 10/18/21 22:10 22:20 23:00 Temperature Pulse Rate Pulse Rate [ Pulse Oximetery ] Respiratory 23 Rate Blood Pressure 83/54 83/54 74/32 Blood Pressure [Right Radial Artery] O2 Sat by Pulse Oximetry 10/18/21 10/19/21 10/19/21 23:53 00:06 00:16 Temperature Pulse Rate 104 H Pulse Rate [ Pulse Oximetery ] Respiratory Rate Blood Pressure 74/45 103/42 112/44 Blood Pressure [Right Radial Artery] O2 Sat by Pulse 99 Oximetry 10/19/21 10/19/21 10/19/21 00:50 01:10 01:20 Temperature Pulse Rate 101 H 97 96 Pulse Rate [ Pulse Oximetery ] Respiratory 92 H 108 H 81 H Rate Blood Pressure 148/68 137/67 117/53 Blood Pressure [Right Radial Artery] O2 Sat by Pulse 100 Oximetry 10/19/21 10/19/21 10/19/21 01:30 01:40 01:50 Temperature Pulse Rate 95 94 95 Pulse Rate [ Pulse Oximetery ] Respiratory 72 H 65 H 30 H Rate Blood Pressure 117/53 114/49 105/49 Blood Pressure [Right Radial Artery] O2 Sat by Pulse 100 Oximetry 10/19/21 10/19/21 10/19/21 02:00 02:10 02:20 Temperature Pulse Rate 95 95 101 H Pulse Rate [ Pulse Oximetery ] Respiratory 17 100 H 15 Rate Blood Pressure 105/49 105/46 121/67 Blood Pressure [Right Radial Artery] O2 Sat by Pulse 99 100 100 Oximetry 10/19/21 10/19/21 10/19/21 02:30 02:40 02:50 Temperature Pulse Rate 94 102 H 98 Pulse Rate [ Pulse Oximetery ] Respiratory 15 5 L 15 Rate Blood Pressure 121/67 100/23 173/62 Blood Pressure [Right Radial Artery] O2 Sat by Pulse 100 100 100 Oximetry 10/19/21 10/19/21 10/19/21 03:00 03:10 03:20 Temperature Pulse Rate 98 100 99 Pulse Rate [ Pulse Oximetery ] Respiratory 15 13 15 Rate Blood Pressure 173/62 168/65 170/42 Blood Pressure [Right Radial Artery] O2 Sat by Pulse 100 100 100 Oximetry 10/19/21 10/19/21 10/19/21 03:30 03:40 03:50 Temperature Pulse Rate 99 98 101 H Pulse Rate [ Pulse Oximetery ] Respiratory 15 18 17 Rate Blood Pressure 170/42 168/47 107/40 Blood Pressure [Right Radial Artery] O2 Sat by Pulse 100 100 100 Oximetry 10/19/21 10/19/21 10/19/21 04:00 04:10 04:20 Temperature Pulse Rate 101 H 101 H 99 Pulse Rate [ Pulse Oximetery ] Respiratory 15 16 17 Rate Blood Pressure 107/40 109/53 113/47 Blood Pressure [Right Radial Artery] O2 Sat by Pulse 99 99 100 Oximetry 10/19/21 10/19/21 10/19/21 04:30 04:40 04:50 Temperature Pulse Rate 98 98 96 Pulse Rate [ Pulse Oximetery ] Respiratory 17 16 16 Rate Blood Pressure 113/47 115/54 120/50 Blood Pressure [Right Radial Artery] O2 Sat by Pulse 100 100 100 Oximetry 10/19/21 10/19/21 10/19/21 05:00 05:10 05:20 Temperature Pulse Rate 92 96 95 Pulse Rate [ Pulse Oximetery ] Respiratory 0 L 25 H 27 H Rate Blood Pressure 120/50 119/39 113/48 Blood Pressure [Right Radial Artery] O2 Sat by Pulse 99 99 99 Oximetry 10/19/21 10/19/21 10/19/21 05:30 05:40 05:50 Temperature Pulse Rate 94 93 93 Pulse Rate [ Pulse Oximetery ] Respiratory 3 L 18 4 L Rate Blood Pressure 113/48 118/56 131/60 Blood Pressure [Right Radial Artery] O2 Sat by Pulse 99 99 99 Oximetry 10/19/21 10/19/21 10/19/21 06:00 06:10 06:20 Temperature Pulse Rate 93 92 92 Pulse Rate [ Pulse Oximetery ] Respiratory 0 L 0 L 0 L Rate Blood Pressure 131/60 138/65 156/56 Blood Pressure [Right Radial Artery] O2 Sat by Pulse 100 100 99 Oximetry 10/19/21 10/19/21 10/19/21 06:30 06:40 06:50 Temperature Pulse Rate 91 92 92 Pulse Rate [ Pulse Oximetery ] Respiratory 0 L 4 L 5 L Rate Blood Pressure 156/56 164/57 163/42 Blood Pressure [Right Radial Artery] O2 Sat by Pulse 99 99 99 Oximetry 10/19/21 10/19/21 10/19/21 07:00 07:10 07:20 Temperature Pulse Rate 138 H 126 H 109 H Pulse Rate [ Pulse Oximetery ] Respiratory 5 L 11 L 13 Rate Blood Pressure 163/42 140/40 134/44 Blood Pressure [Right Radial Artery] O2 Sat by Pulse 99 99 99 Oximetry 10/19/21 10/19/21 10/19/21 07:30 08:26 09:00 Temperature 97.9 F Pulse Rate 131 H 91 96 Pulse Rate [ Pulse Oximetery ] Respiratory 25 H 20 20 Rate Blood Pressure 134/44 105/43 125/81 Blood Pressure [Right Radial Artery] O2 Sat by Pulse 99 100 96 Oximetry 10/19/21 10/19/21 10/19/21 09:10 09:20 09:30 Temperature Pulse Rate 93 93 89 Pulse Rate [ Pulse Oximetery ] Respiratory 20 20 20 Rate Blood Pressure 189/73 158/45 193/47 Blood Pressure [Right Radial Artery] O2 Sat by Pulse 96 97 98 Oximetry 10/19/21 10/19/21 10/19/21 09:40 09:50 10:21 Temperature Pulse Rate 89 94 89 Pulse Rate [ Pulse Oximetery ] Respiratory 18 20 18 Rate Blood Pressure 104/44 101/40 101/50 Blood Pressure [Right Radial Artery] O2 Sat by Pulse 100 100 100 Oximetry 10/19/21 10/19/21 10/19/21 10:30 10:40 13:32 Temperature Pulse Rate 88 88 Pulse Rate [ Pulse Oximetery ] Respiratory 18 18 Rate Blood Pressure 101/34 58/30 Blood Pressure 125/60 [Right Radial Artery] O2 Sat by Pulse 97 97 Oximetry 10/19/21 10/19/21 14:00 16:33 Temperature Pulse Rate 85 85 Pulse Rate [ Pulse Oximetery ] Respiratory 16 Rate Blood Pressure 160/57 114/65 Blood Pressure [Right Radial Artery] O2 Sat by Pulse 95 100 Oximetry EKG Findings - EKG Comments: EKG Findings:: EKG demonstrates sinus tachycardia with a ventricular rate of 106. SC interval 130. QRS 80. QTC of 446. No acute ST segment elevations or depressions concerning for ischemic changes Medical Decision Making - Medical Decision Making Arrival patient was placed into room 5. Thorough history and physical exam was performed. IV was established and the patient was given a 500 bolus. Fluids were limited at 500 cc due to his history of ESRD. I did give him his midodrine as his blood pressures are low. He is on 6 L NC. Laboratory studies are conducted. Stable hemoglobin of 8.8. Platelets 83. Creatinine 10. Lactic acid 4.2. Magnesium 1.3. LDH 1179. Chest x-ray demonstrates perihilar infiltrates. Patient was given a gram of Tylenol and initiated on Levaquin and vancomycin after blood cultures obtained. Magnesium will be replaced by mouth patient will be admitted to [facility] physicians. Dr. Jimenez, Dr Amaro and Dr. Quintero evaluate the patient in the ED shortly after admission. He remained in stable condition awaiting a bed - Lab Data Result diagrams: 10/19/21 05:00 10/19/21 18:00 Lab Results 10/18/21 10/18/21 10/18/21 Range/Units 07:56 07:56 07:56 WBC 9.1 (3.8-10.6) k/uL RBC 2.82 L (4.30-5.90) m/uL Hgb 8.8 L (13.0-17.5) gm/dL Hct 29.1 L (39.0-53.0) % MCV 103.2 H D (80.0-100.0) fL MCH 31.3 (25.0-35.0) pg MCHC 30.3 L (31.0-37.0) g/dL RDW 17.7 H (11.5-15.5) % Plt Count 83 L D (150-450) k/uL MPV 12.8 Neutrophils % (Manual) 83 % Band Neuts % (Manual) 5 % Lymphocytes % (Manual) 8 % Monocytes % (Manual) 4 % Eosinophils % (Manual) 1 % Basophils % (Manual) 1 % Metamyelocytes % 1 % Neutrophils # (Manual) 8.00 H (1.3-7.7) k/uL Lymphocytes # (Manual) 0.73 L (1.0-4.8) k/uL Monocytes # (Manual) 0.36 (0-1.0) k/uL Eosinophils # (Manual) 0.09 (0-0.7) k/uL Basophils # (Manual) 0.09 (0-0.2) k/uL Metamyelocytes # (Man) 0.09 H (0) k/uL Nucleated RBCs 1 H (0-0) /100 WBC Manual Slide Review Performed Large Platelets Present Polychromasia Present Hypochromasia Marked Anisocytosis Slight Macrocytosis Moderate PT 12.0 (9.0-12.0) sec INR 1.1 (<1.2) APTT 27.1 (22.0-30.0) sec D-Dimer >34.10 H (<0.60) mg/L FEU VBG pH (7.31-7.41) VBG pCO2 (37-51) mmHg VBG HCO3 (24-28) mmol/L Sodium 139 (137-145) mmol/L Potassium 4.3 (3.5-5.1) mmol/L Chloride 101 (98-107) mmol/L Carbon Dioxide 22 (22-30) mmol/L Anion Gap 16 mmol/L BUN 58 H (9-20) mg/dL Creatinine 10.12 H* (0.66-1.25) mg/dL Est GFR (CKD-EPI)AfAm 6 (>60 ml/min/1.73 sqM) Est GFR (CKD-EPI)NonAf 6 (>60 ml/min/1.73 sqM) Glucose 245 H (74-99) mg/dL Lactic Ac Sepsis Rflx Plasma Lactic Acid Steven (0.7-2.0) mmol/L Calcium 8.4 (8.4-10.2) mg/dL Magnesium 1.3 L (1.6-2.3) mg/dL Total Bilirubin 0.5 (0.2-1.3) mg/dL AST 60 H (17-59) U/L ALT 17 (4-49) U/L Alkaline Phosphatase 125 (38-126) U/L Lactate Dehydrogenase 1179 H (313-618) U/L Troponin I (0.000-0.034) ng/mL NT-Pro-B Natriuret Pep pg/mL Total Protein 6.9 (6.3-8.2) g/dL Albumin 3.8 (3.5-5.0) g/dL Procalcitonin (0.02-0.09) ng/mL Coronavirus (PCR) (Not Detectd) 10/18/21 10/18/21 10/18/21 Range/Units 07:56 07:56 07:56 WBC (3.8-10.6) k/uL RBC (4.30-5.90) m/uL Hgb (13.0-17.5) gm/dL Hct (39.0-53.0) % MCV (80.0-100.0) fL MCH (25.0-35.0) pg MCHC (31.0-37.0) g/dL RDW (11.5-15.5) % Plt Count (150-450) k/uL MPV Neutrophils % (Manual) % Band Neuts % (Manual) % Lymphocytes % (Manual) % Monocytes % (Manual) % Eosinophils % (Manual) % Basophils % (Manual) % Metamyelocytes % % Neutrophils # (Manual) (1.3-7.7) k/uL Lymphocytes # (Manual) (1.0-4.8) k/uL Monocytes # (Manual) (0-1.0) k/uL Eosinophils # (Manual) (0-0.7) k/uL Basophils # (Manual) (0-0.2) k/uL Metamyelocytes # (Man) (0) k/uL Nucleated RBCs (0-0) /100 WBC Manual Slide Review Large Platelets Polychromasia Hypochromasia Anisocytosis Macrocytosis PT (9.0-12.0) sec INR (<1.2) APTT (22.0-30.0) sec D-Dimer (<0.60) mg/L FEU VBG pH (7.31-7.41) VBG pCO2 (37-51) mmHg VBG HCO3 (24-28) mmol/L Sodium (137-145) mmol/L Potassium (3.5-5.1) mmol/L Chloride (98-107) mmol/L Carbon Dioxide (22-30) mmol/L Anion Gap mmol/L BUN (9-20) mg/dL Creatinine (0.66-1.25) mg/dL Est GFR (CKD-EPI)AfAm (>60 ml/min/1.73 sqM) Est GFR (CKD-EPI)NonAf (>60 ml/min/1.73 sqM) Glucose (74-99) mg/dL Lactic Ac Sepsis Rflx Plasma Lactic Acid Steven 4.2 H* (0.7-2.0) mmol/L Calcium (8.4-10.2) mg/dL Magnesium (1.6-2.3) mg/dL Total Bilirubin (0.2-1.3) mg/dL AST (17-59) U/L ALT (4-49) U/L Alkaline Phosphatase (38-126) U/L Lactate Dehydrogenase (313-618) U/L Troponin I 0.188 H* (0.000-0.034) ng/mL NT-Pro-B Natriuret Pep 8260 pg/mL Total Protein (6.3-8.2) g/dL Albumin (3.5-5.0) g/dL Procalcitonin (0.02-0.09) ng/mL Coronavirus (PCR) (Not Detectd) 10/18/21 10/18/21 10/18/21 Range/Units 07:56 07:56 07:56 WBC (3.8-10.6) k/uL RBC (4.30-5.90) m/uL Hgb (13.0-17.5) gm/dL Hct (39.0-53.0) % MCV (80.0-100.0) fL MCH (25.0-35.0) pg MCHC (31.0-37.0) g/dL RDW (11.5-15.5) % Plt Count (150-450) k/uL MPV Neutrophils % (Manual) % Band Neuts % (Manual) % Lymphocytes % (Manual) % Monocytes % (Manual) % Eosinophils % (Manual) % Basophils % (Manual) % Metamyelocytes % % Neutrophils # (Manual) (1.3-7.7) k/uL Lymphocytes # (Manual) (1.0-4.8) k/uL Monocytes # (Manual) (0-1.0) k/uL Eosinophils # (Manual) (0-0.7) k/uL Basophils # (Manual) (0-0.2) k/uL Metamyelocytes # (Man) (0) k/uL Nucleated RBCs (0-0) /100 WBC Manual Slide Review Large Platelets Polychromasia Hypochromasia Anisocytosis Macrocytosis PT (9.0-12.0) sec INR (<1.2) APTT (22.0-30.0) sec D-Dimer (<0.60) mg/L FEU VBG pH 7.36 (7.31-7.41) VBG pCO2 40 (37-51) mmHg VBG HCO3 22 L (24-28) mmol/L Sodium (137-145) mmol/L Potassium (3.5-5.1) mmol/L Chloride (98-107) mmol/L Carbon Dioxide (22-30) mmol/L Anion Gap mmol/L BUN (9-20) mg/dL Creatinine (0.66-1.25) mg/dL Est GFR (CKD-EPI)AfAm (>60 ml/min/1.73 sqM) Est GFR (CKD-EPI)NonAf (>60 ml/min/1.73 sqM) Glucose (74-99) mg/dL Lactic Ac Sepsis Rflx Plasma Lactic Acid Steven (0.7-2.0) mmol/L Calcium (8.4-10.2) mg/dL Magnesium (1.6-2.3) mg/dL Total Bilirubin (0.2-1.3) mg/dL AST (17-59) U/L ALT (4-49) U/L Alkaline Phosphatase (38-126) U/L Lactate Dehydrogenase (313-618) U/L Troponin I (0.000-0.034) ng/mL NT-Pro-B Natriuret Pep pg/mL Total Protein (6.3-8.2) g/dL Albumin (3.5-5.0) g/dL Procalcitonin >100.00 H (0.02-0.09) ng/mL Coronavirus (PCR) Not Detected (Not Detectd) 10/18/21 Range/Units 08:27 WBC (3.8-10.6) k/uL RBC (4.30-5.90) m/uL Hgb (13.0-17.5) gm/dL Hct (39.0-53.0) % MCV (80.0-100.0) fL MCH (25.0-35.0) pg MCHC (31.0-37.0) g/dL RDW (11.5-15.5) % Plt Count (150-450) k/uL MPV Neutrophils % (Manual) % Band Neuts % (Manual) % Lymphocytes % (Manual) % Monocytes % (Manual) % Eosinophils % (Manual) % Basophils % (Manual) % Metamyelocytes % % Neutrophils # (Manual) (1.3-7.7) k/uL Lymphocytes # (Manual) (1.0-4.8) k/uL Monocytes # (Manual) (0-1.0) k/uL Eosinophils # (Manual) (0-0.7) k/uL Basophils # (Manual) (0-0.2) k/uL Metamyelocytes # (Man) (0) k/uL Nucleated RBCs (0-0) /100 WBC Manual Slide Review Large Platelets Polychromasia Hypochromasia Anisocytosis Macrocytosis PT (9.0-12.0) sec INR (<1.2) APTT (22.0-30.0) sec D-Dimer (<0.60) mg/L FEU VBG pH (7.31-7.41) VBG pCO2 (37-51) mmHg VBG HCO3 (24-28) mmol/L Sodium (137-145) mmol/L Potassium (3.5-5.1) mmol/L Chloride (98-107) mmol/L Carbon Dioxide (22-30) mmol/L Anion Gap mmol/L BUN (9-20) mg/dL Creatinine (0.66-1.25) mg/dL Est GFR (CKD-EPI)AfAm (>60 ml/min/1.73 sqM) Est GFR (CKD-EPI)NonAf (>60 ml/min/1.73 sqM) Glucose (74-99) mg/dL Lactic Ac Sepsis Rflx Y Plasma Lactic Acid Steven (0.7-2.0) mmol/L Calcium (8.4-10.2) mg/dL Magnesium (1.6-2.3) mg/dL Total Bilirubin (0.2-1.3) mg/dL AST (17-59) U/L ALT (4-49) U/L Alkaline Phosphatase (38-126) U/L Lactate Dehydrogenase (313-618) U/L Troponin I (0.000-0.034) ng/mL NT-Pro-B Natriuret Pep pg/mL Total Protein (6.3-8.2) g/dL Albumin (3.5-5.0) g/dL Procalcitonin (0.02-0.09) ng/mL Coronavirus (PCR) (Not Detectd) Critical Care Time Critical Care Time: Yes Critical Care Time: 50 minutes Disposition Clinical Impression: Diabetes, End stage renal failure on dialysis, Sepsis, Pneumonia, Febrile illness, Fever, Acute respiratory failure, Cardiopulmonary arrest with successfu l resuscitation Disposition: ADMITTED IP TO THIS [facility] Condition: Critical Is patient prescribed a controlled substance at d/c from ED?: No Decision to Admit Reason: Admit from EC Decision Date: 10/18/21 Decision Time: 09:42
[2021-10-18] MEDS: NOREPINEPHRINE 4 MG in SODIUM CHLORIDE 0.9% 250 ML IV SCH (11:06)
--- NOTE | 2021-10-18 12:35 | CT ---
EXAMINATION TYPE: CT chest angio for PE DATE OF EXAM: 03/08/2021 COMPARISON: None HISTORY: History of PE, elevated d dimer, fever CT DLP: 769.6 mGycm CONTRAST: CT chest with contrast and 3D reconstruction with MIP imaging is performed with IV Contrast, patient injected with 100 mL of Isovue 370. Contrast-enhanced CT of the chest was performed through the course of the pulmonary arteries with saw g and mediastinal window settings submitted. 3D reconstruction with MIP imaging was also performed. PULMONARY ARTERIES: There are a few tiny filling defects within right lower lobe pulmonary second and third order branches. No saddle component no definite left-sided filling defect seen. LUNGS: Basilar atelectasis noted. No evidence for atelectasis. No pulmonary nodule or mass is detec kam. No pleural effusion. MEDIASTINUM: Thoracic aorta is of normal caliber,however, evaluation is limited given timing of the contrast bolus. If there is concern for thoracic aortic pathology consider ANNABELLE. Correlate clinicall y . The heart is not enlarged. No evidence for mediastinal mass. No mediastinal lymph nodes greater than 1cm. HILAR STRUCTURES: No evidence for mass. No hilar lymph nodes greater than 1 cm. UPPER ABDOMEN: No significant abnormality is seen. IMPRESSION: 1. Very mild pulmonary embolism much improved from prior study.
--- NOTE | 2021-10-18 13:08 | P.NPCON ---
History of Present Illness - Reason for Consult Consult date: 10/18/21 end stage renal disease - Chief Complaint ESRD - History of Present Illness 46-year-old male with diabetes, end-stage renal failure on dialysis via femoral catheter in the right side. He came in with a temperature of 103 to the emergency room. Currently he is somewhat obtunded blood pressures have been low he was given 500 mL bolus. IV access was difficult. He was found to have bacteremia recently staph aureus grew on multiple blood cultures from 05/14/2021 with periods of negative cultures last blood culture positive was 08/14/2021 and subsequently on 08/16, 08/17 and 08/18/2021 blood cultures are negative A ANNABELLE on 10/05/2021 is negative. He has a hero graft left which is not funct ioning. 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 Currently he is being dialyzed via femoral permacath on the right groin. He is known with diabetes, pulmonary embolism, seizures, right below-knee amputation remote and multiple access for dialysis that have clotted off. 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 His temperature is 90.8 point, on admission it was 103.1 Past Medical History Past Medical History: Diabetes Mellitus, Dialysis, GERD/Reflux, Hyperlipidemia, Pulmonary Embolus (PE), Renal Disease, Seizure Disorder, Syncope Additional Past Medical History / Comment(s): constipation, anemia, peripheral vascular disease, diabetes mellitus on insulin pump for blood sugar control, previous history of massive pulmonary embolism - ECOS, hyperlipidemia, HD at home History of Any Multi-Drug Resistant Organisms: None Reported Additional Past Surgical History / Comment(s): tom cataract, peritoneal dialysis catheter rt side, ECOS 03/19/21, HERO HD site left chest, right forearm fistula - no longer active, left arm fistula - no longer active, right chest HD temp. HD cath., RBKA Past Anesthesia/Blood Transfusion Reactions: No Reported Reaction Past Psychological History: Anxiety, Depression Smoking Status: Never smoker Past Alcohol Use History: None Reported Past Drug Use History: None Reported - Past Family History Mother Family Medical History: Cancer Father Family Medical History: Dementia Medications and Allergies Home Medications Medication Instructions Recorded Confirmed Type Dialyvite 1 tab PO DAILY 01/31/17 10/18/21 History Ergocalciferol [Vitamin D2 50,000 unit PO Q14D 01/31/17 10/18/21 History (DRISDOL)] INSULIN LISPRO (For Pump) [humaLOG 0.01 units SQ-PUMP CONTINUOUS 01/31/17 10/18/21 History (For Pump)] Omeprazole [PriLOSEC] 20 mg PO BID 01/31/17 10/18/21 History Timolol [Betimol 0.5% Ophth Soln] 1 drop RIGHT EYE BID 01/31/17 10/18/21 History Furosemide [Lasix] 80 mg PO BID 10/01/20 10/18/21 History Pregabalin [Lyrica] 200 mg PO TID 10/01/20 10/18/21 History oxyCODONE-APAP 10-325MG [Percocet 1 tab PO Q6H 10/01/20 10/18/21 History 10-325 mg] Metoclopramide [Reglan] 5 mg PO AC-TID 03/16/21 10/18/21 History Midodrine HCl [ProAmatine] 10 mg PO TID 03/16/21 10/18/21 History Ondansetron HCl [Zofran] 4 mg PO BID 03/16/21 10/18/21 History Calcium Acetate [PhosLo] 667 mg PO AC-LUNCH 05/14/21 10/18/21 History Aspirin EC [Ecotrin Low Dose] 81 mg PO DAILY 08/06/21 10/18/21 History Dulaglutide [Trulicity] 1.5 mg SQ WE 08/06/21 10/18/21 History Heparin 1000 Units/Ml 6,400 units SQ MOTUTHFRSA 08/06/21 10/18/21 History Sennosides/Docusate Sodium [Senna 1 tab PO BID PRN 08/06/21 10/18/21 History Plus 8.6-50 mg Tablet] Vilazodone HCl [Viibryd] 40 mg PO PC-SUPPER 08/06/21 10/18/21 History traZODone HCL [Desyrel] 100 mg PO HS 08/06/21 10/18/21 History diazePAM [Valium] 2 mg PO TID PRN #6 tab 08/23/21 10/18/21 Rx Apixaban [Eliquis] 5 mg PO BID 10/18/21 10/18/21 History Allergies Allergy/AdvReac Type Severity Reaction Status Date / Time No Known Allergies Allergy Verified 10/18/21 09:36 Physical Exam Vitals: Vital Signs Temp Pulse Pulse Resp BP Pulse Ox 10/18/21 12:49 98.3 F 88 18 90/53 93 L 10/18/21 12:23 90 16 88/37 91 L 10/18/21 11:59 91 16 93/53 89 L 10/18/21 11:57 88 16 79/50 89 L 10/18/21 11:36 92 16 92/58 95 10/18/21 11:20 93 24 83/48 92 L 10/18/21 11:05 93 L 10/18/21 11:00 96 24 70/41 87 L 10/18/21 09:37 101.9 F H 104 H 16 79/54 90 L 10/18/21 08:33 107 H 16 91/70 90 L 10/18/21 08:03 105 H 16 82/44 93 L 10/18/21 07:42 106 H 18 77/47 92 L 10/18/21 07:26 113 H 18 10/18/21 07:20 93 L 10/18/21 07:16 103.1 F H 108 H 18 86/55 64 L Intake and Output 10/17/21 10/18/21 10/18/21 22:59 06:59 14:59 Intake Total 31.215 Balance 31.215 Intake: Intake, IV Titration 31.215 Amount Norepinephrine 4 mg In 31.215 Sodium Chloride 0.9% 250 ml @ 0.05 MCG/KG/MIN 10. 715 mls/hr IV .[id number] [facility] Rx#:[id number] Other: Weight 56.245 kg On exam somewhat obtunded opens eyes. HEENT exam no JVP neck is supple no facial asymmetry Lungs clear to auscultation good air entry bilaterally Heart sounds unremarkable for any murmur rub gallop Abdomen soft nontender obese Extremities examination reveals BKA remote right and Results - Lab Results Most recent lab results Calcium 8.4 mg/dL (8.4-10.2) 10/18/21 07:56 Magnesium 1.3 mg/dL (1.6-2.3) L 10/18/21 07:56 12/30/21 07:56 10/18/21 07:56 Assessment and Plan Assessment: Impression 1. ESRD on dialysis Friday 2. Admitted with fever of 103, recent bacteremia 4 months from 05/14/2021 and multiple blood cultures are positive. Last positive blood culture was 08/14/2021, subsequently -3 days on 08/16/2021, 08/17/2021 and 08/18/2021. Possibly infected hero graft, although a white cell scan was negative on 08/14/2021. A ANNABELLE was negative on 10/05/2021 3. Diabetic complication including right BKA remote . 4. Access problems. Clotted hero graft on the left side the femoral permacath on the right which is currently the functioning dialysis access. 5. Anemia hemoglobin 8.8. To ESRD rule out an deficiency Recommendation 1. Because of the possibility of IV access, have cleared use of the femoral permacath for emergencies. He will need some levo fed. 2. We will hold off dialysis today because of the hemodynamic instability. We will try to dialyze him tomorrow. Thank you for this consultation and we'll continue to follow
[2021-10-18] MEDS: NOREPINEPHRINE 32 MG in SODIUM CHLORIDE 0.9% 218 ML IV ONE (13:10)
--- NOTE | 2021-10-18 13:27 | P.HPIM ---
History of Present Illness H&P Date: 10/18/21 Chief Complaint: obtunded Patient is a 50-year-old male with known end-stage renal disease on hemodialysis currently out of facility on Friday//Friday, diabetes mellitus on insulin pump with neuropathy and history of right AKA he has been struggling with recurrent M SSA of bacteremia area he was recently discharged on 08/23 after her hospital stay where his hemodialysis catheter was changed out and a dialysis catheter was placed into his right groin. On discharge that time he was completing IV rifampin as well as 6 weeks of IV cefazolin. During that hospital stay he underwent CT chestabdomen/pelvis which showed no additional sources of bacteremia, he also underwent a tagged white blood cell scan. He did undergo a transesophageal echocardiogram on 10/05 without signs of endocarditis. He was found to be hypotensive despite 500cc bolus. He was started on levophed. CTA chest with smaller thrombus then before. He was gien vanco and levaquin. COVID testing was negative. On 08/20 he underwent ultrasound-guided placement of a right common femoral vein tunneled hemodialysis catheter. 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 He has a nonfunctioning here graft in the left chest. Today bedside ultrasound revealed occlusion in the left common femoral vein. He had been take off his eliquis for a short time due to the need for rifampin. Patient seen and examined at bedside. Son is present and states he was finup until yesterday when he started complaining that it is cold and had a slight fever. This morning he had a higher fever and was obtunded. They therefore called EMS and brought him to the hospital. They believe his antibiotic was stopped with dialysis either early this week her sometime last week. He was supposed to start on oral antibiotic. No other complaints currently. No other changes to her medical history. Unable to obtain review of systems secondary to patient's lethargy General: ill appearing, moderate distress, appears at stated age Derm: warm, dry Head: atraumatic, normocephalic, symmetric Eyes: EOMI, no lid lag, anicteric sclera, pupils pinpoint and sluggishly reactive ENT: Nose and ears atraumatic, no thrush, no pharyngeal erythema Neck: No thyromegaly, no cervical lymphadenopathy, trachea midline, supple Mouth: no lip lesion, mucus membranes dry Cardiovascular: S1S2 reg, no murmur, positive posterior tibial pulse bilateral, no edema, capillary refill less than 2 seconds Lungs: Decreased bs bilateral, no ronchi, no rales, + wheeze, no accessory muscle use Abdominal: soft, nontender to palpation, no guarding, no appreciable organomegaly, normal bowel sounds Ext: no gross muscle atrophy, + right BKA no signs of chronic ulceration Neuro: CN II-XI grossly intact, moving all 4 extremities independently. Psych: obtunded Acute encephalopathy Pyrexia Recent Recurrent HD cath infections Hypotension, likely septic shock Lactic acidosis - gentle IVF - Continue with vanco and add cefepime - consult ID - Blood cultures - IVF - hold all sedative medications ESRD on HD T//Fri Anemia of chronic renal disease - HgB at baseline - d/w nephro okay to access HD cath as no other points of access - no signs of elevated potassium - likely HD in AM - follow CBC Chronic Pulmonary Embolsim with hx of Massive pulmonary embolism - Eliquis DM 2 with insulin pump use at home - off pump - SSI follow BP - A1C 7.2 08/16/21 ELevated Troponin - likely reflective of ESRD - Continue to trend GERD - PPI Dyslipidemia - not chronically on meds Seizure disorder Anemia of chronic renal disease The patient is admitted with an anticipated greater than 2 midnight stay for evaluation of encephalopathy, sepsis. Surrogate decision-maker: Son CODE STATUS:full DVT prophylaxis: eliquis Discussed with: patient, nursing, son, ed provide, nephrology, Dr. Celeste, Dr. Pereira Anticipated discharge date: undetermined Anticipated discharge place: undetermined A total of 75 minutes was spent on the care of this complex patient more than 50% of the time was spent in counseling and care coordination. Past Medical History Past Medical History: Diabetes Mellitus, Dialysis, GERD/Reflux, Hyperlipidemia, Pulmonary Embolus (PE), Renal Disease, Seizure Disorder, Syncope Additional Past Medical History / Comment(s): constipation, anemia, peripheral vascular disease, diabetes mellitus on insulin pump for blood sugar control, previous history of massive pulmonary embolism - ECOS, hyperlipidemia, HD at home, Hx of recurrent Line infections History of Any Multi-Drug Resistant Organisms: None Reported Additional Past Surgical History / Comment(s): tom cataract, peritoneal dialysis catheter rt side, ECOS 5/31/21, HERO HD site left chest, right forearm fistula - no longer active, left arm fistula - no longer active, right chest HD temp. HD cath., RBKA Past Anesthesia/Blood Transfusion Reactions: No Reported Reaction Past Psychological History: Anxiety, Depression Smoking Status: Never smoker Past Alcohol Use History: None Reported Past Drug Use History: None Reported - Past Family History Mother Family Medical History: Cancer Father Family Medical History: Dementia Medications and Allergies Home Medications Medication Instructions Recorded Confirmed Type Dialyvite 1 tab PO DAILY 01/31/17 10/18/21 History Ergocalciferol [Vitamin D2 50,000 unit PO Q14D 01/31/17 10/18/21 History (DRISDOL)] INSULIN LISPRO (For Pump) [humaLOG 0.01 units SQ-PUMP CONTINUOUS 01/31/17 10/18/21 History (For Pump)] Omeprazole [PriLOSEC] 20 mg PO BID 01/31/17 10/18/21 History Timolol [Betimol 0.5% Ophth Soln] 1 drop RIGHT EYE BID 01/31/17 10/18/21 History Furosemide [Lasix] 80 mg PO BID 10/01/20 10/18/21 History Pregabalin [Lyrica] 200 mg PO TID 10/01/20 10/18/21 History oxyCODONE-APAP 10-325MG [Percocet 1 tab PO Q6H 10/01/20 10/18/21 History 10-325 mg] Metoclopramide [Reglan] 5 mg PO AC-TID 03/16/21 10/18/21 History Midodrine HCl [ProAmatine] 10 mg PO TID 03/16/21 10/18/21 History Ondansetron HCl [Zofran] 4 mg PO BID 03/16/21 10/18/21 History Calcium Acetate [PhosLo] 667 mg PO AC-LUNCH 05/14/21 10/18/21 History Aspirin EC [Ecotrin Low Dose] 81 mg PO DAILY 08/06/21 10/18/21 History Dulaglutide [Trulicity] 1.5 mg SQ WE 08/06/21 10/18/21 History Heparin 1000 Units/Ml 6,400 units SQ MOTUTHFRSA 08/06/21 10/18/21 History Sennosides/Docusate Sodium [Senna 1 tab PO BID PRN 08/06/21 10/18/21 History Plus 8.6-50 mg Tablet] Vilazodone HCl [Viibryd] 40 mg PO PC-SUPPER 08/06/21 10/18/21 History traZODone HCL [Desyrel] 100 mg PO HS 08/06/21 10/18/21 History diazePAM [Valium] 2 mg PO TID PRN #6 tab 08/23/21 10/18/21 Rx Apixaban [Eliquis] 5 mg PO BID 10/18/21 10/18/21 History Allergies Allergy/AdvReac Type Severity Reaction Status Date / Time No Known Allergies Allergy Verified 10/18/21 09:36 Physical Exam Osteopathic Statement: *. No significant issues noted on an osteopathic structural exam other than those noted in the History and Physical/Consult. Vitals: Vital Signs Temp Pulse Pulse Resp BP Pulse Ox 10/18/21 12:49 98.3 F 88 18 90/53 93 L 10/18/21 12:23 90 16 88/37 91 L 10/18/21 11:59 91 16 93/53 89 L 10/18/21 11:57 88 16 79/50 89 L 10/18/21 11:36 92 16 92/58 95 10/18/21 11:20 93 24 83/48 92 L 10/18/21 11:05 93 L 10/18/21 11:00 96 24 70/41 87 L 10/18/21 09:37 101.9 F H 104 H 16 79/54 90 L 10/18/21 08:33 107 H 16 91/70 90 L 10/18/21 08:03 105 H 16 82/44 93 L 10/18/21 07:42 106 H 18 77/47 92 L 10/18/21 07:26 113 H 18 10/18/21 07:20 93 L 10/18/21 07:16 103.1 F H 108 H 18 86/55 64 L Intake and Output 10/17/21 10/18/21 10/18/21 22:59 06:59 14:59 Intake Total 55.323 Balance 55.323 Intake: Intake, IV Titration 55.323 Amount Norepinephrine 4 mg In 55.323 Sodium Chloride 0.9% 250 ml @ 0.05 MCG/KG/MIN 10. 715 mls/hr IV .[id number] [facility] Rx#:[id number] Other: Weight 56.245 kg Results CBC & Chem 7: 10/18/21 07:56 10/18/21 07:56 Labs: Abnormal Lab Results - Last 24 Hours (Table) 10/18/21 10/18/21 10/18/21 Range/Units 07:56 07:56 07:56 RBC 2.82 L (4.30-5.90) m/uL Hgb 8.8 L (13.0-17.5) gm/dL Hct 29.1 L (39.0-53.0) % MCV 103.2 H D (80.0-100.0) fL MCHC 30.3 L (31.0-37.0) g/dL RDW 17.7 H (11.5-15.5) % Plt Count 83 L D (150-450) k/uL Neutrophils # (Manual) 8.00 H (1.3-7.7) k/uL Lymphocytes # (Manual) 0.73 L (1.0-4.8) k/uL Metamyelocytes # (Man) 0.09 H (0) k/uL Nucleated RBCs 1 H (0-0) /100 WBC D-Dimer >34.10 H (<0.60) mg/L FEU VBG HCO3 (24-28) mmol/L BUN 58 H (9-20) mg/dL Creatinine 10.12 H* (0.66-1.25) mg/dL Glucose 245 H (74-99) mg/dL Plasma Lactic Acid Steven (0.7-2.0) mmol/L Magnesium 1.3 L (1.6-2.3) mg/dL AST 60 H (17-59) U/L Lactate Dehydrogenase 1179 H (313-618) U/L Troponin I (0.000-0.034) ng/mL 10/18/21 10/18/21 10/18/21 Range/Units 07:56 07:56 07:56 RBC (4.30-5.90) m/uL Hgb (13.0-17.5) gm/dL Hct (39.0-53.0) % MCV (80.0-100.0) fL MCHC (31.0-37.0) g/dL RDW (11.5-15.5) % Plt Count (150-450) k/uL Neutrophils # (Manual) (1.3-7.7) k/uL Lymphocytes # (Manual) (1.0-4.8) k/uL Metamyelocytes # (Man) (0) k/uL Nucleated RBCs (0-0) /100 WBC D-Dimer (<0.60) mg/L FEU VBG HCO3 22 L (24-28) mmol/L BUN (9-20) mg/dL Creatinine (0.66-1.25) mg/dL Glucose (74-99) mg/dL Plasma Lactic Acid Steven 4.2 H* (0.7-2.0) mmol/L Magnesium (1.6-2.3) mg/dL AST (17-59) U/L Lactate Dehydrogenase (313-618) U/L Troponin I 0.188 H* (0.000-0.034) ng/mL 10/18/21 10/18/21 Range/Units 11:30 11:30 RBC (4.30-5.90) m/uL Hgb (13.0-17.5) gm/dL Hct (39.0-53.0) % MCV (80.0-100.0) fL MCHC (31.0-37.0) g/dL RDW (11.5-15.5) % Plt Count (150-450) k/uL Neutrophils # (Manual) (1.3-7.7) k/uL Lymphocytes # (Manual) (1.0-4.8) k/uL Metamyelocytes # (Man) (0) k/uL Nucleated RBCs (0-0) /100 WBC D-Dimer (<0.60) mg/L FEU VBG HCO3 (24-28) mmol/L BUN (9-20) mg/dL Creatinine (0.66-1.25) mg/dL Glucose (74-99) mg/dL Plasma Lactic Acid Steven 2.6 H* (0.7-2.0) mmol/L Magnesium (1.6-2.3) mg/dL AST (17-59) U/L Lactate Dehydrogenase (313-618) U/L Troponin I 0.130 H* (0.000-0.034) ng/mL
[2021-10-18 13:36] LABS: Glucose,Whole Blood 289 mg/dL (75-99)
[2021-10-18] MEDS ORDERED: ONDANSETRON 4 MG/2 ML VIAL IVP PRN (13:39)
[2021-10-18] MEDS ORDERED: SODIUM CHLORIDE 0.9% 1,000 ML IV ONE (14:01)
[2021-10-18] MEDS: SODIUM CHLORIDE 0.9% 1,000 ML IV SCH (14:10)
[2021-10-18] MEDS: CEFEPIME 1 GM in SODIUM CHLORIDE 0.9% 50 ML IVPB SCH (14:10)
[2021-10-18] MEDS: INSULIN ASPART (NovoLOG) 100 UNIT/ML VIAL SQ SCH ×3 (14:38→23:26)
--- NOTE | 2021-10-18 15:26 | P.CNPUL ---
History of Present Illness Consult date: 10/18/21 Reason for consult: dyspnea Chief complaint: Altered mental status History of present illness: 46-year-old male patient, known having incisional disease on hemodialysis 3 times a week, TTS, also known to have multiple medical problems and comorbidities most significant of which is severe peripheral vascular disease, p revious amputations, diabetes mellitus maintained on insulin pump on outpatient basis, and the patient has had recurrent septic events most recent of which was secondary to staph aureus and the patient came into the emergency department having fever, hypotension, lethargy, altered mentation and encephalopathy. Noted the patient was found to be hypotensive. He was given a bolus of 500 mL of normal saline. He was following that started on pressors and the patient is currently on norepinephrine running at 0.15 mcg/kg per minute for hemodynamic support. The patient was also started on broad-spectrum antibiotics. He was started on a combination of cefepime and vancomycin. He has been a difficult vascular access. For that reason, he was given a tunneled catheter in the right upper extremity. We are also using the glasses catheter for now his right femoral vein for pressors. His last bout of hemodialysis was done yesterday. A total of 1 L of fluid was removed. He is supposed to have another session of hemodialysis today as long as his blood pressure tolerates. Nephrology on the case. Blood cultures of been sent.On 08/20 he underwent ultrasound-guided placement of a right common femoral vein tunneled hemodialysis catheter. 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 He has a nonfunctioning here graft in the left chest. Today bedside ultrasound revealed occlusion in the left common femoral vein. He had been take off his eliquis for a short time due to the need for rifampin. A CT angiogram of the chest was done that showed a questionable pulmonary embolism and the secondary tertiary branches of the right lower lobe pulmonary artery and the patient was restarted back on his Eliquis. Currently is off his insulin pump. Blood work shows a white cell count 9.1 with hemoglobin 8.8, 11 is more than 34 with a normal correlation profile, electrodes are all within normal limits, blood sugars at 245, lactic acid level was at 4.2 dropped down to 2.6, troponins are minimally elevated at 0.13 respectively. COVID 19 testing was negative. Review of Systems ROS unobtainable: due to mental status Past Medical History Past Medical History: Diabetes Mellitus, Dialysis, GERD/Reflux, Hyperlipidemia, Pulmonary Embolus (PE), Renal Disease, Seizure Disorder, Syncope Additional Past Medical History / Comment(s): constipation, anemia, peripheral vascular disease, diabetes mellitus on insulin pump for blood sugar control, previous history of massive pulmonary embolism - ECOS, hyperlipidemia, HD at home, Hx of recurrent Line infections History of Any Multi-Drug Resistant Organisms: None Reported Additional Past Surgical History / Comment(s): tom cataract, peritoneal dialysis catheter rt side, ECOS 03/19/21, HERO HD site left chest, right forearm fistula - no longer active, left arm fistula - no longer active, right chest HD temp. HD cath., RBKA Past Anesthesia/Blood Transfusion Reactions: No Reported Reaction Past Psychological History: Anxiety, Depression Smoking Status: Never smoker Past Alcohol Use History: None Reported Past Drug Use History: None Reported - Past Family History Mother Family Medical History: Cancer Father Family Medical History: Dementia Medications and Allergies Home Medications Medication Instructions Recorded Confirmed Type Dialyvite 1 tab PO DAILY 01/31/17 10/18/21 History Ergocalciferol [Vitamin D2 50,000 unit PO Q14D 01/31/17 10/18/21 History (DRISDOL)] INSULIN LISPRO (For Pump) [humaLOG 0.01 units SQ-PUMP CONTINUOUS 01/31/17 10/18/21 History (For Pump)] Omeprazole [PriLOSEC] 20 mg PO BID 01/31/17 10/18/21 History Timolol [Betimol 0.5% Ophth Soln] 1 drop RIGHT EYE BID 01/31/17 10/18/21 History Furosemide [Lasix] 80 mg PO BID 10/01/20 10/18/21 History Pregabalin [Lyrica] 200 mg PO TID 10/01/20 10/18/21 History oxyCODONE-APAP 10-325MG [Percocet 1 tab PO Q6H 10/01/20 10/18/21 History 10-325 mg] Metoclopramide [Reglan] 5 mg PO AC-TID 03/16/21 10/18/21 History Midodrine HCl [ProAmatine] 10 mg PO TID 03/16/21 10/18/21 History Ondansetron HCl [Zofran] 4 mg PO BID 03/16/21 10/18/21 History Calcium Acetate [PhosLo] 667 mg PO AC-LUNCH 05/14/21 10/18/21 History Aspirin EC [Ecotrin Low Dose] 81 mg PO DAILY 08/06/21 10/18/21 History Dulaglutide [Trulicity] 1.5 mg SQ WE 08/06/21 10/18/21 History Heparin 1000 Units/Ml 6,400 units SQ MOTUTHFRSA 08/06/21 10/18/21 History Sennosides/Docusate Sodium [Senna 1 tab PO BID PRN 08/06/21 10/18/21 History Plus 8.6-50 mg Tablet] Vilazodone HCl [Viibryd] 40 mg PO PC-SUPPER 08/06/21 10/18/21 History traZODone HCL [Desyrel] 100 mg PO HS 08/06/21 10/18/21 History diazePAM [Valium] 2 mg PO TID PRN #6 tab 08/23/21 10/18/21 Rx Apixaban [Eliquis] 5 mg PO BID 10/18/21 10/18/21 History Allergies Allergy/AdvReac Type Severity Reaction Status Date / Time No Known Allergies Allergy Verified 10/18/21 09:36 Physical Exam Vitals: Vital Signs Temp Pulse Pulse Resp BP Pulse Ox 10/18/21 14:05 86 20 81/65 91 L 10/18/21 13:23 93 16 75/43 92 L 10/18/21 12:49 98.3 F 88 18 90/53 93 L 10/18/21 12:23 90 16 88/37 91 L 10/18/21 11:59 91 16 93/53 89 L 10/18/21 11:57 88 16 79/50 89 L 10/18/21 11:36 92 16 92/58 95 10/18/21 11:20 93 24 83/48 92 L 10/18/21 11:05 93 L 10/18/21 11:00 96 24 70/41 87 L 10/18/21 09:37 101.9 F H 104 H 16 79/54 90 L 10/18/21 08:33 107 H 16 91/70 90 L 10/18/21 08:03 105 H 16 82/44 93 L 10/18/21 07:42 106 H 18 77/47 92 L 10/18/21 07:26 113 H 18 10/18/21 07:20 93 L 10/18/21 07:16 103.1 F H 108 H 18 86/55 64 L Intake and Output 10/18/21 10/18/21 10/18/21 06:59 14:59 22:59 Intake Total 55.323 Balance 55.323 Intake: Intake, IV Titration 55.323 Amount Norepinephrine 4 mg In 55.323 Sodium Chloride 0.9% 250 ml @ 0.05 MCG/KG/MIN 10. 715 mls/hr IV .[id number] [facility] Rx#:[id number] Other: Weight 56.245 kg General: ill appearing, moderate distress, appears at stated age, breathing is nonlabored and the patient is currently on room air oxygen. Derm: warm, dry Head: atraumatic, normocephalic, symmetric Eyes: EOMI, no lid lag, anicteric sclera, pupils pinpoint and sluggishly reactive ENT: Nose and ears atraumatic, no thrush, no pharyngeal erythema Neck: No thyromegaly, no cervical lymphadenopathy, trachea midline, supple Mouth: no lip lesion, mucus membranes dry Cardiovascular: S1S2 reg, no murmur, positive posterior tibial pulse bilateral, no edema, capillary refill less than 2 seconds Lungs: Decreased bs bilateral, no ronchi, no rales, + wheeze, no accessory muscle use Abdominal: soft, nontender to palpation, no guarding, no appreciable organomegaly, normal bowel sounds Ext: no gross muscle atrophy, + right BKA no signs of chronic ulceration Neuro: CN II-XI grossly intact, moving all 4 extremities independently. Psych: obtunded, unable to obtain Results - Laboratory Findings CBC and BMP: 10/18/21 07:56 10/18/21 07:56 PT/INR, D-dimer PT 12.0 sec (9.0-12.0) 10/18/21 07:56 INR 1.1 (<1.2) 10/18/21 07:56 D-Dimer >34.10 mg/L FEU (<0.60) H 10/18/21 07:56 Abnormal lab findings: Abnormal Labs 10/18/21 10/18/21 10/18/21 07:56 07:56 07:56 RBC 2.82 L Hgb 8.8 L Hct 29.1 L MCV 103.2 H D MCHC 30.3 L RDW 17.7 H Plt Count 83 L D Neutrophils # (Manual) 8.00 H Lymphocytes # (Manual) 0.73 L Metamyelocytes # (Man) 0.09 H Nucleated RBCs 1 H D-Dimer >34.10 H VBG HCO3 BUN 58 H Creatinine 10.12 H* Glucose 245 H POC Glucose (mg/dL) Plasma Lactic Acid Steven Magnesium 1.3 L AST 60 H Lactate Dehydrogenase 1179 H Troponin I 10/18/21 10/18/21 10/18/21 07:56 07:56 07:56 RBC Hgb Hct MCV MCHC RDW Plt Count Neutrophils # (Manual) Lymphocytes # (Manual) Metamyelocytes # (Man) Nucleated RBCs D-Dimer VBG HCO3 22 L BUN Creatinine Glucose POC Glucose (mg/dL) Plasma Lactic Acid Steven 4.2 H* Magnesium AST Lactate Dehydrogenase Troponin I 0.188 H* 10/18/21 10/18/21 10/18/21 11:30 11:30 13:30 RBC Hgb Hct MCV MCHC RDW Plt Count Neutrophils # (Manual) Lymphocytes # (Manual) Metamyelocytes # (Man) Nucleated RBCs D-Dimer VBG HCO3 BUN Creatinine Glucose POC Glucose (mg/dL) 289 H Plasma Lactic Acid Steven 2.6 H* Magnesium AST Lactate Dehydrogenase Troponin I 0.130 H* 10/18/21 14:33 RBC Hgb Hct MCV MCHC RDW Plt Count Neutrophils # (Manual) Lymphocytes # (Manual) Metamyelocytes # (Man) Nucleated RBCs D-Dimer VBG HCO3 BUN Creatinine Glucose POC Glucose (mg/dL) Plasma Lactic Acid Steven Magnesium AST Lactate Dehydrogenase Troponin I 0.120 H* - Diagnostic Findings Chest x-ray: image reviewed CT scan - chest: image reviewed Assessment and Plan Plan: 1 septic shock. The patient presents with fever, altered mentation, encephalopathy and hypotension likely due to recurrent sepsis. Most recent septicemia was related to MSSA and the patient has completed course of antibiotics using rifampin and cefazolin. A repeat ANNABELLE showed no evidence of any vegetation from 10/05/2021. Consider skin/catheter as being source of infection. No evidence of any pneumonia at this point in time. CT angiogram showed no evidence of pneumonia 2 altered mental status, encephalopathy related to sepsis 3. Currently under investigation 4 hypotension currently on pressors second 2 septic shock 5 incisional disease disease on hemodialysis 3 times a week, TTS, 6 severe peripheral vascular disease with below-knee of dictation of the right 7 pulmonary embolism, secondary to 2 branches of the right lower lobe pulmonary artery current, currently on Eliquis 8 diabetes mellitus type 2, maintained on insulin pump on outpatient basis, currently off pump 9 troponin leak secondary to oxygen mismatch in the setting of an acute sepsis 10 hyperlipidemia 11 peripheral neuropathy secondary to diabetes mellitus 12 chronic anemia 13 preserved LV function with an ejection fraction of 55-60% along with severe pulmonary hypertension and paradoxic septal motion movement. Plan Continue cefepime vancomycin pending further cultures Titrate norepinephrine to maintain a mean artery pressure above 65 We are utilizing the dialysis catheter as a source for IV access and pressor use as the patient has been a difficult IV access and were unable to insert a triple lumen cath in this patient. He was also given a peripheral tunneled cath in his right upper extremity. Hold insulin pump for now. May need a long-acting insulin for tighter blood sugar control in combination with slight scale coverage Restart Eliquis 2.5 mg by mouth twice a day Monitor mental status Nephrology consultation for hemodialysis today Long-term prognosis poor baseline above-mentioned comorbidities. We'll continue to follow. Time with Patient: Greater than 30
[2021-10-18] MEDS: MIDODRINE 5 MG TAB PO SCH (16:58)
[2021-10-18 19:02] LABS: Glucose,Whole Blood 292 mg/dL (75-99)
[2021-10-18] MEDS ORDERED: APIXABAN 5 MG TAB PO SCH (21:00)
[2021-10-18] MEDS ORDERED: INSULIN DETEMIR (LEVEMIR) 100 UNIT/ML SYR SQ SCH (21:00)
[2021-10-18 21:53] LABS: Glucose,Whole Blood 286 mg/dL (75-99)
[2021-10-18] MEDS ORDERED: DEXAMETHASONE SOD PHOSPHATE 10 MG/ML 1 ML VIAL IVP STA (22:22)
[2021-10-18] MEDS ORDERED: DEXTROSE 5%-0.45% NACL 1,000 ML IV SCH (22:30)
--- NOTE | 2021-10-18 22:34 | P.EN ---
code blue note please refer to paper charting for exact sequence of events and meds given patient went into asystole , CPR initiated following ACLS protocol, patient intubated during the code. bicarb, epi given . 1 round of CPR and ROSC achieved. new labs sent to follow up on electrolytes currently vitals stable , continues on supportive care, with fluids and pressors. vent care blood culture reported positive cocci, patient covered with vanco and cefepime follow up CXR for ET tube placement continue care currently in the ED, ICU hold
--- NOTE | 2021-10-18 22:37 | ED ---
Medical Decision Making - Medical Decision Making 46 male to the emergency department sam. Patient is all patient in the ER for ICU secondary to sepsis This is a note regarding CODE BLUE here in the emergency department Patient initially became unresponsive Stop breathing and began to turn blue Patient lost fall CPR was started and patient was intubated Immediately got return of spontaneous circulation Patient is now intubated and maintains on hold for ICU Patient's pressure support is increased We will resend labs - Lab Data Result diagrams: 10/18/21 23:31 10/18/21 23:31 Lab Results 10/18/21 10/18/21 10/18/21 Range/Units 07:56 07:56 07:56 WBC 9.1 (3.8-10.6) k/uL RBC 2.82 L (4.30-5.90) m/uL Hgb 8.8 L (13.0-17.5) gm/dL Hct 29.1 L (39.0-53.0) % MCV 103.2 H D (80.0-100.0) fL MCH 31.3 (25.0-35.0) pg MCHC 30.3 L (31.0-37.0) g/dL RDW 17.7 H (11.5-15.5) % Plt Count 83 L D (150-450) k/uL MPV 12.8 Neutrophils % (Manual) 83 % Band Neuts % (Manual) 5 % Lymphocytes % (Manual) 8 % Monocytes % (Manual) 4 % Eosinophils % (Manual) 1 % Basophils % (Manual) 1 % Metamyelocytes % 1 % Neutrophils # (Manual) 8.00 H (1.3-7.7) k/uL Lymphocytes # (Manual) 0.73 L (1.0-4.8) k/uL Monocytes # (Manual) 0.36 (0-1.0) k/uL Eosinophils # (Manual) 0.09 (0-0.7) k/uL Basophils # (Manual) 0.09 (0-0.2) k/uL Metamyelocytes # (Man) 0.09 H (0) k/uL Nucleated RBCs 1 H (0-0) /100 WBC Manual Slide Review Performed Large Platelets Present Polychromasia Present Hypochromasia Marked Anisocytosis Slight Macrocytosis Moderate PT 12.0 (9.0-12.0) sec INR 1.1 (<1.2) APTT 27.1 (22.0-30.0) sec D-Dimer >34.10 H (<0.60) mg/L FEU VBG pH (7.31-7.41) VBG pCO2 (37-51) mmHg VBG HCO3 (24-28) mmol/L Sodium 139 (137-145) mmol/L Potassium 4.3 (3.5-5.1) mmol/L Chloride 101 (98-107) mmol/L Carbon Dioxide 22 (22-30) mmol/L Anion Gap 16 mmol/L BUN 58 H (9-20) mg/dL Creatinine 10.12 H* (0.66-1.25) mg/dL Est GFR (CKD-EPI)AfAm 6 (>60 ml/min/1.73 sqM) Est GFR (CKD-EPI)NonAf 6 (>60 ml/min/1.73 sqM) Glucose 245 H (74-99) mg/dL Lactic Ac Sepsis Rflx Plasma Lactic Acid Steven (0.7-2.0) mmol/L Calcium 8.4 (8.4-10.2) mg/dL Magnesium 1.3 L (1.6-2.3) mg/dL Total Bilirubin 0.5 (0.2-1.3) mg/dL AST 60 H (17-59) U/L ALT 17 (4-49) U/L Alkaline Phosphatase 125 (38-126) U/L Lactate Dehydrogenase 1179 H (313-618) U/L Troponin I (0.000-0.034) ng/mL NT-Pro-B Natriuret Pep pg/mL Total Protein 6.9 (6.3-8.2) g/dL Albumin 3.8 (3.5-5.0) g/dL Procalcitonin (0.02-0.09) ng/mL Coronavirus (PCR) (Not Detectd) 10/18/21 10/18/21 10/18/21 Range/Units 07:56 07:56 07:56 WBC (3.8-10.6) k/uL RBC (4.30-5.90) m/uL Hgb (13.0-17.5) gm/dL Hct (39.0-53.0) % MCV (80.0-100.0) fL MCH (25.0-35.0) pg MCHC (31.0-37.0) g/dL RDW (11.5-15.5) % Plt Count (150-450) k/uL MPV Neutrophils % (Manual) % Band Neuts % (Manual) % Lymphocytes % (Manual) % Monocytes % (Manual) % Eosinophils % (Manual) % Basophils % (Manual) % Metamyelocytes % % Neutrophils # (Manual) (1.3-7.7) k/uL Lymphocytes # (Manual) (1.0-4.8) k/uL Monocytes # (Manual) (0-1.0) k/uL Eosinophils # (Manual) (0-0.7) k/uL Basophils # (Manual) (0-0.2) k/uL Metamyelocytes # (Man) (0) k/uL Nucleated RBCs (0-0) /100 WBC Manual Slide Review Large Platelets Polychromasia Hypochromasia Anisocytosis Macrocytosis PT (9.0-12.0) sec INR (<1.2) APTT (22.0-30.0) sec D-Dimer (<0.60) mg/L FEU VBG pH (7.31-7.41) VBG pCO2 (37-51) mmHg VBG HCO3 (24-28) mmol/L Sodium (137-145) mmol/L Potassium (3.5-5.1) mmol/L Chloride (98-107) mmol/L Carbon Dioxide (22-30) mmol/L Anion Gap mmol/L BUN (9-20) mg/dL Creatinine (0.66-1.25) mg/dL Est GFR (CKD-EPI)AfAm (>60 ml/min/1.73 sqM) Est GFR (CKD-EPI)NonAf (>60 ml/min/1.73 sqM) Glucose (74-99) mg/dL Lactic Ac Sepsis Rflx Plasma Lactic Acid Steven 4.2 H* (0.7-2.0) mmol/L Calcium (8.4-10.2) mg/dL Magnesium (1.6-2.3) mg/dL Total Bilirubin (0.2-1.3) mg/dL AST (17-59) U/L ALT (4-49) U/L Alkaline Phosphatase (38-126) U/L Lactate Dehydrogenase (313-618) U/L Troponin I 0.188 H* (0.000-0.034) ng/mL NT-Pro-B Natriuret Pep 8260 pg/mL Total Protein (6.3-8.2) g/dL Albumin (3.5-5.0) g/dL Procalcitonin (0.02-0.09) ng/mL Coronavirus (PCR) (Not Detectd) 10/18/21 10/18/21 10/18/21 Range/Units 07:56 07:56 07:56 WBC (3.8-10.6) k/uL RBC (4.30-5.90) m/uL Hgb (13.0-17.5) gm/dL Hct (39.0-53.0) % MCV (80.0-100.0) fL MCH (25.0-35.0) pg MCHC (31.0-37.0) g/dL RDW (11.5-15.5) % Plt Count (150-450) k/uL MPV Neutrophils % (Manual) % Band Neuts % (Manual) % Lymphocytes % (Manual) % Monocytes % (Manual) % Eosinophils % (Manual) % Basophils % (Manual) % Metamyelocytes % % Neutrophils # (Manual) (1.3-7.7) k/uL Lymphocytes # (Manual) (1.0-4.8) k/uL Monocytes # (Manual) (0-1.0) k/uL Eosinophils # (Manual) (0-0.7) k/uL Basophils # (Manual) (0-0.2) k/uL Metamyelocytes # (Man) (0) k/uL Nucleated RBCs (0-0) /100 WBC Manual Slide Review Large Platelets Polychromasia Hypochromasia Anisocytosis Macrocytosis PT (9.0-12.0) sec INR (<1.2) APTT (22.0-30.0) sec D-Dimer (<0.60) mg/L FEU VBG pH 7.36 (7.31-7.41) VBG pCO2 40 (37-51) mmHg VBG HCO3 22 L (24-28) mmol/L Sodium (137-145) mmol/L Potassium (3.5-5.1) mmol/L Chloride (98-107) mmol/L Carbon Dioxide (22-30) mmol/L Anion Gap mmol/L BUN (9-20) mg/dL Creatinine (0.66-1.25) mg/dL Est GFR (CKD-EPI)AfAm (>60 ml/min/1.73 sqM) Est GFR (CKD-EPI)NonAf (>60 ml/min/1.73 sqM) Glucose (74-99) mg/dL Lactic Ac Sepsis Rflx Plasma Lactic Acid Steven (0.7-2.0) mmol/L Calcium (8.4-10.2) mg/dL Magnesium (1.6-2.3) mg/dL Total Bilirubin (0.2-1.3) mg/dL AST (17-59) U/L ALT (4-49) U/L Alkaline Phosphatase (38-126) U/L Lactate Dehydrogenase (313-618) U/L Troponin I (0.000-0.034) ng/mL NT-Pro-B Natriuret Pep pg/mL Total Protein (6.3-8.2) g/dL Albumin (3.5-5.0) g/dL Procalcitonin >100.00 H (0.02-0.09) ng/mL Coronavirus (PCR) Not Detected (Not Detectd) 10/18/21 Range/Units 08:27 WBC (3.8-10.6) k/uL RBC (4.30-5.90) m/uL Hgb (13.0-17.5) gm/dL Hct (39.0-53.0) % MCV (80.0-100.0) fL MCH (25.0-35.0) pg MCHC (31.0-37.0) g/dL RDW (11.5-15.5) % Plt Count (150-450) k/uL MPV Neutrophils % (Manual) % Band Neuts % (Manual) % Lymphocytes % (Manual) % Monocytes % (Manual) % Eosinophils % (Manual) % Basophils % (Manual) % Metamyelocytes % % Neutrophils # (Manual) (1.3-7.7) k/uL Lymphocytes # (Manual) (1.0-4.8) k/uL Monocytes # (Manual) (0-1.0) k/uL Eosinophils # (Manual) (0-0.7) k/uL Basophils # (Manual) (0-0.2) k/uL Metamyelocytes # (Man) (0) k/uL Nucleated RBCs (0-0) /100 WBC Manual Slide Review Large Platelets Polychromasia Hypochromasia Anisocytosis Macrocytosis PT (9.0-12.0) sec INR (<1.2) APTT (22.0-30.0) sec D-Dimer (<0.60) mg/L FEU VBG pH (7.31-7.41) VBG pCO2 (37-51) mmHg VBG HCO3 (24-28) mmol/L Sodium (137-145) mmol/L Potassium (3.5-5.1) mmol/L Chloride (98-107) mmol/L Carbon Dioxide (22-30) mmol/L Anion Gap mmol/L BUN (9-20) mg/dL Creatinine (0.66-1.25) mg/dL Est GFR (CKD-EPI)AfAm (>60 ml/min/1.73 sqM) Est GFR (CKD-EPI)NonAf (>60 ml/min/1.73 sqM) Glucose (74-99) mg/dL Lactic Ac Sepsis Rflx Y Plasma Lactic Acid Steven (0.7-2.0) mmol/L Calcium (8.4-10.2) mg/dL Magnesium (1.6-2.3) mg/dL Total Bilirubin (0.2-1.3) mg/dL AST (17-59) U/L ALT (4-49) U/L Alkaline Phosphatase (38-126) U/L Lactate Dehydrogenase (313-618) U/L Troponin I (0.000-0.034) ng/mL NT-Pro-B Natriuret Pep pg/mL Total Protein (6.3-8.2) g/dL Albumin (3.5-5.0) g/dL Procalcitonin (0.02-0.09) ng/mL Coronavirus (PCR) (Not Detectd) - Radiology Data Radiology results: report reviewed (Chest x-ray does show positive right mainstem intubation, to will be pulled back), image reviewed Critical Care Time Critical Care Time: Yes Total Critical Care Time: 31 Disposition Clinical Impression: Diabetes, End stage renal failure on dialysis, Sepsis, Pneumonia, Febrile illness, Fever, Acute respiratory failure, Cardiopulmonary arrest with successful resuscitation Disposition: ADMITTED IP TO THIS [facility] Condition: Critical Procedures - Intubation Laryngoscope: Sandra Size: 4 ET Tube Size: 8 ET Tube Uncuffed: No Tube Secured Location: teeth Tube Placement Confirmation: visualized tube passing through cords, equal breath sounds bilaterally, no breath sounds over epigastrium, confirmation by capnometry Patient Tolerated Procedure: well Intubation Complications: none
[2021-10-18 22:40] LABS: Glucose,Whole Blood 298 mg/dL (75-99)
--- NOTE | 2021-10-18 22:42 | XR ---
EXAMINATION TYPE: XR chest 1V DATE OF EXAM: 10/18/2021 COMPARISON: Today HISTORY: Short of breath TECHNIQUE: Single view FINDINGS: Endotracheal tube is approximately 2 cm into the right mainstem bronchus. There is some inf iltrate and atelectasis in both upper lobes. Heart size is normal. No obvious heart failure. There is nasogastric tube in the stomach. There is left-sided central venous catheter with the tip over the r ight atrium. IMPRESSION: There is some new infiltrate and atelectasis in the upper lobes. There is malposition of the endotracheal tube in the right mainstem bronchus.
[2021-10-18] MEDS ORDERED: fentaNYL (PF) 50 MCG/ML 2 ML AMP IV STA (22:53)
[2021-10-18] MEDS ORDERED: MIDAZOLAM 1 MG/ML 5 ML VIAL IV STA (22:53)
[2021-10-18] MEDS ORDERED: MIDAZOLAM HCL 50 MG in SODIUM CHLORIDE 0.9% 40 ML IV SCH (23:00)
[2021-10-18] MEDS: APIXABAN 2.5 MG TABLET PO SCH (23:24)
[2021-10-18 23:41] LABS: ABG Base Excess -15.6 mmol/L; ABG HCO3 14 mmol/L (21-25); ABG Oxygen Saturation 96.8 % (94-97); ABG PCO2 48 mmHg (35-45); ABG PO2 120 mmHg (83-108); ABG TCO2 16 mmol/L (19-24); Allen Test Performed? Yes
[2021-10-18] MEDS: SODIUM CHLORIDE 0.9% 150 ML with VASOPRESSIN 60 UNIT IV SCH ×2 (23:52)
[2021-10-19 00:01] LABS: Anisocytosis Slight; HGB 7.5 gm/dL (13.0-17.5); Hypochromasia Marked; MCH 31.5 pg (25.0-35.0); MCHC 28.8 g/dL (31.0-37.0); Macrocytosis Marked; Mean Platelet Volume 12.7; RBC 2.38 m/uL (4.30-5.90); RDW 18.1 % (11.5-15.5); WBC 31.1 k/uL (3.8-10.6)
[2021-10-19 00:04] LABS: ABG PH 7.08 (7.35-7.45)
[2021-10-19 00:11] LABS: MCV 109.3 fL (80.0-100.0); Platelet Count 82 k/uL (150-450)
[2021-10-19] MEDS ORDERED: SODIUM BICARB 8.4% 50 ML SYR (1 MEQ/ML) IV STA (00:32)
[2021-10-19] MEDS: MIDODRINE 5 MG TAB PO SCH ×4 (00:35→21:00)
[2021-10-19 00:36] LABS: Albumin 2.7 g/dL (3.5-5.0); Calcium 6.5 mg/dL (8.4-10.2); Magnesium 1.4 mg/dL (1.6-2.3); Total Bilirubin 0.5 mg/dL (0.2-1.3); Total Protein 5.2 g/dL (6.3-8.2)
[2021-10-19] MEDS: CEFEPIME 1 GM in SODIUM CHLORIDE 0.9% 50 ML IVPB SCH ×3 (00:37→10:01)
[2021-10-19] MEDS ORDERED: DEXTROSE 5% IN WATER 1,000 ML with SODIUM BICARB (1 MEQ/ML) 150 ML IV SCH (00:45)
[2021-10-19 00:49] LABS: Band Neutrophils % 34 %; Lymphocytes # (M) 2.49 k/uL (1.0-4.8); Metamyelocytes # (M) 0.93 k/uL (0); Metamyelocytes % 3 %; Monocytes # (M) 0.62 k/uL (0-1.0); Neutrophils % (M) 53 %; Nucleated Red Blood Cells 0 /100 WBC (0-0); Poikilocytosis (M) Present; Total Cells Counted 100
--- NOTE | 2021-10-19 02:31 | XR ---
EXAMINATION TYPE: XR chest 1V portable DATE OF EXAM: 10/19/2021 COMPARISON: Yesterday HISTORY: Respiratory failure TECHNIQUE: FINDINGS: Endotracheal tube is 1.4 cm from the cristi. There is nasogastric tube in the distal stomac h. There is left-sided central venous catheter with tip over the right atrium. There is bilateral upp er lobe pulmonary airspace infiltrates. No pneumothorax. No definite pleural effusion. There is also some mild infiltrate left lower lobe. IMPRESSION: Endotracheal tube is low and could be pulled back an additional 1.5 cm. There is bilatera l predominantly upper lobe pulmonary infiltrates without change.
[2021-10-19] MEDS ORDERED: SODIUM CHLORIDE 0.9% 1,000 ML IV ONE (03:11)
[2021-10-19] MEDS: SODIUM CHLORIDE 0.9% 1,000 ML IV SCH ×2 (04:53→18:16)
[2021-10-19 05:22] LABS: Anisocytosis Slight; HCT 29.1 % (39.0-53.0); Hypochromasia Marked; MCH 32.5 pg (25.0-35.0); MCHC 30.9 g/dL (31.0-37.0); MCV 104.9 fL (80.0-100.0); Macrocytosis Marked; Mean Platelet Volume 10.1; RBC 2.77 m/uL (4.30-5.90); RDW 17.8 % (11.5-15.5)
[2021-10-19 05:23] LABS: Platelet Count 86 k/uL (150-450)
[2021-10-19 05:55] LABS: Calcium 6.8 mg/dL (8.4-10.2)
[2021-10-19 05:56] LABS: Potassium 6.8 mmol/L (3.5-5.1)
[2021-10-19 05:58] LABS: ABG Base Excess -9.3 mmol/L; ABG HCO3 18 mmol/L (21-25); ABG Oxygen Saturation 97.1 % (94-97); ABG PCO2 40 mmHg (35-45); ABG PH 7.26 (7.35-7.45); ABG PO2 103 mmHg (83-108); ABG TCO2 19 mmol/L (19-24); Allen Test Performed? Yes
[2021-10-19 06:01] LABS: Band Neutrophils % 34 %; Lymphocytes # (M) 0.76 k/uL (1.0-4.8); Monocytes # (M) 0.38 k/uL (0-1.0); Neutrophils % (M) 63 %; Nucleated Red Blood Cells 0 /100 WBC (0-0); Total Cells Counted 100
[2021-10-19 06:02] LABS: Poikilocytosis (M) Present
[2021-10-19] MEDS ORDERED: DEXTROSE 50% SYRINGE 50 ML IVP STA (06:06)
[2021-10-19] MEDS ORDERED: CALCIUM GLUCONATE 1 GM in SODIUM CHLORIDE 0.9% 100 ML IVPB ONE (06:06)
[2021-10-19] MEDS ORDERED: INSULIN REGULAR 100 UNIT/ML VIAL (IV) IV ONE (06:06)
[2021-10-19] MEDS ORDERED: VANCOMYCIN 1,000 MG in SODIUM CHLORIDE 0.9% 250 ML IVPB ONE ×2 (06:55→07:00)
[2021-10-19] MEDS ORDERED: INSULIN DETEMIR (LEVEMIR) 100 UNIT/ML SYR SQ SCH (07:00)
[2021-10-19] MEDS: PANTOPRAZOLE 40 MG TABLET PO SCH (08:14)
[2021-10-19] MEDS: ASPIRIN 81 MG PO SCH (08:18)
[2021-10-19] MEDS ORDERED: DEXAMETHASONE SOD PHOSPHATE 10 MG/ML 1 ML VIAL IVP SCH (09:00)
[2021-10-19 09:12] LABS: Glucose,Whole Blood 515 mg/dL (75-99)
[2021-10-19] MEDS: APIXABAN 2.5 MG TABLET PO SCH ×2 (09:25→21:00)
--- NOTE | 2021-10-19 09:30 | P.PN ---
Subjective Progress Note Date: 10/19/21 Principal diagnosis: This 46-year-old male known to us with ESRD on dialysis via femoral catheter on the right side, who came in with a temperature of 103 to the emergency room. Y esterday night he coded and was intubated and is currently on vasopressin and Levophed He is known with type 1 diabetes with recurrent bacteremia or the last 6 months starting April 2021. The last positive blood cultures were dated 08/14/2021 and subsequent blood cultures had been negative. Fresh blood cultures drawn yesterday are pending. 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 He has bilateral BKA remote. On vasopressin and Levophed as blood pressure in the 158/45-189/73 heart rate 93 temperature 90.7 point He is sedated on 100% FiO2 Objective - Vital Signs Vital signs: Vital Signs Temp 97.9 F 10/19/21 08:26 Pulse 93 10/19/21 09:20 Resp 20 10/19/21 09:20 BP 158/45 10/19/21 09:20 Pulse Ox 97 10/19/21 09:20 Intake & Output 10/18/21 10/19/21 10/19/21 18:59 06:59 18:59 Intake Total 68.031 172.823 118.906 Balance 68.031 172.823 118.906 Weight 56.245 kg 100 kg Intake: Intake, IV Titration 68.031 172.823 118.906 Amount Norepinephrine 32 mg In 12.708 99.023 15.306 Sodium Chloride 0.9% 218 ml @ 0.05 MCG/KG/MIN 1. 318 mls/hr IV .Q24H [facility] Rx#:[id number] Norepinephrine 4 mg In 55.323 Sodium Chloride 0.9% 250 ml @ 0.05 MCG/KG/MIN 10. 715 mls/hr IV .[id number] [facility] Rx#:[id number] propofoL 1,000 mg In 73.8 103.6 Empty Bag 1 bag @ Titrate IV .Q0M [facility] Rx#: [id number] On examination he is on the ventilator on 100% FiO2 A chin exam no JVP no facial asymmetry noted Lungs are significant for diminished breath sounds bilaterally. A chest x-ray shows possible right upper lobe infiltrate. Some cardiomegaly noted Heart sounds unremarkable for any murmur rub gallop Abdomen is somewhat distended and obese Extremity examination bilateral BKA with minimal edema Neurologically obtunded sedated - Labs CBC & Chem 7: 10/19/21 05:00 10/19/21 05:00 Labs: Abnormal Lab Results - Last 24 Hours (Table) 10/18/21 10/18/21 10/18/21 Range/Units 07:56 07:56 07:56 WBC (3.8-10.6) k/uL RBC (4.30-5.90) m/uL Hgb (13.0-17.5) gm/dL Hct (39.0-53.0) % MCV (80.0-100.0) fL MCHC (31.0-37.0) g/dL RDW (11.5-15.5) % Plt Count 83 L D (150-450) k/uL Neutrophils # (Manual) 8.00 H (1.3-7.7) k/uL Lymphocytes # (Manual) 0.73 L (1.0-4.8) k/uL Metamyelocytes # (Man) 0.09 H (0) k/uL Nucleated RBCs 1 H (0-0) /100 WBC Macrocytosis D-Dimer >34.10 H (<0.60) mg/L FEU ABG pH (7.35-7.45) ABG pCO2 (35-45) mmHg ABG pO2 (83-108) mmHg ABG HCO3 (21-25) mmol/L ABG Total CO2 (19-24) mmol/L ABG O2 Saturation (94-97) % Sodium (137-145) mmol/L Potassium (3.5-5.1) mmol/L Carbon Dioxide (22-30) mmol/L BUN (9-20) mg/dL Creatinine (0.66-1.25) mg/dL Glucose (74-99) mg/dL POC Glucose (mg/dL) (75-99) mg/dL Plasma Lactic Acid Steven (0.7-2.0) mmol/L Calcium (8.4-10.2) mg/dL Magnesium (1.6-2.3) mg/dL AST (17-59) U/L Alkaline Phosphatase (38-126) U/L Troponin I (0.000-0.034) ng/mL Total Protein (6.3-8.2) g/dL Albumin (3.5-5.0) g/dL Procalcitonin >100.00 H (0.02-0.09) ng/mL 10/18/21 10/18/21 10/18/21 Range/Units 11:30 11:30 13:30 WBC (3.8-10.6) k/uL RBC (4.30-5.90) m/uL Hgb (13.0-17.5) gm/dL Hct (39.0-53.0) % MCV (80.0-100.0) fL MCHC (31.0-37.0) g/dL RDW (11.5-15.5) % Plt Count (150-450) k/uL Neutrophils # (Manual) (1.3-7.7) k/uL Lymphocytes # (Manual) (1.0-4.8) k/uL Metamyelocytes # (Man) (0) k/uL Nucleated RBCs (0-0) /100 WBC Macrocytosis D-Dimer (<0.60) mg/L FEU ABG pH (7.35-7.45) ABG pCO2 (35-45) mmHg ABG pO2 (83-108) mmHg ABG HCO3 (21-25) mmol/L ABG Total CO2 (19-24) mmol/L ABG O2 Saturation (94-97) % Sodium (137-145) mmol/L Potassium (3.5-5.1) mmol/L Carbon Dioxide (22-30) mmol/L BUN (9-20) mg/dL Creatinine (0.66-1.25) mg/dL Glucose (74-99) mg/dL POC Glucose (mg/dL) 289 H (75-99) mg/dL Plasma Lactic Acid Steven 2.6 H* (0.7-2.0) mmol/L Calcium (8.4-10.2) mg/dL Magnesium (1.6-2.3) mg/dL AST (17-59) U/L Alkaline Phosphatase (38-126) U/L Troponin I 0.130 H* (0.000-0.034) ng/mL Total Protein (6.3-8.2) g/dL Albumin (3.5-5.0) g/dL Procalcitonin (0.02-0.09) ng/mL 10/18/21 10/18/21 10/18/21 Range/Units 14:33 16:07 18:50 WBC (3.8-10.6) k/uL RBC (4.30-5.90) m/uL Hgb (13.0-17.5) gm/dL Hct (39.0-53.0) % MCV (80.0-100.0) fL MCHC (31.0-37.0) g/dL RDW (11.5-15.5) % Plt Count (150-450) k/uL Neutrophils # (Manual) (1.3-7.7) k/uL Lymphocytes # (Manual) (1.0-4.8) k/uL Metamyelocytes # (Man) (0) k/uL Nucleated RBCs (0-0) /100 WBC Macrocytosis D-Dimer (<0.60) mg/L FEU ABG pH (7.35-7.45) ABG pCO2 (35-45) mmHg ABG pO2 (83-108) mmHg ABG HCO3 (21-25) mmol/L ABG Total CO2 (19-24) mmol/L ABG O2 Saturation (94-97) % Sodium (137-145) mmol/L Potassium (3.5-5.1) mmol/L Carbon Dioxide (22-30) mmol/L BUN (9-20) mg/dL Creatinine (0.66-1.25) mg/dL Glucose (74-99) mg/dL POC Glucose (mg/dL) (75-99) mg/dL Plasma Lactic Acid Steven 2.3 H* 2.5 H* (0.7-2.0) mmol/L Calcium (8.4-10.2) mg/dL Magnesium (1.6-2.3) mg/dL AST (17-59) U/L Alkaline Phosphatase (38-126) U/L Troponin I 0.120 H* (0.000-0.034) ng/mL Total Protein (6.3-8.2) g/dL Albumin (3.5-5.0) g/dL Procalcitonin (0.02-0.09) ng/mL 10/18/21 10/18/21 10/18/21 Range/Units 19:00 21:27 21:52 WBC (3.8-10.6) k/uL RBC (4.30-5.90) m/uL Hgb (13.0-17.5) gm/dL Hct (39.0-53.0) % MCV (80.0-100.0) fL MCHC (31.0-37.0) g/dL RDW (11.5-15.5) % Plt Count (150-450) k/uL Neutrophils # (Manual) (1.3-7.7) k/uL Lymphocytes # (Manual) (1.0-4.8) k/uL Metamyelocytes # (Man) (0) k/uL Nucleated RBCs (0-0) /100 WBC Macrocytosis D-Dimer (<0.60) mg/L FEU ABG pH (7.35-7.45) ABG pCO2 (35-45) mmHg ABG pO2 (83-108) mmHg ABG HCO3 (21-25) mmol/L ABG Total CO2 (19-24) mmol/L ABG O2 Saturation (94-97) % Sodium (137-145) mmol/L Potassium (3.5-5.1) mmol/L Carbon Dioxide (22-30) mmol/L BUN (9-20) mg/dL Creatinine (0.66-1.25) mg/dL Glucose (74-99) mg/dL POC Glucose (mg/dL) 292 H 286 H (75-99) mg/dL Plasma Lactic Acid Steven 4.2 H* (0.7-2.0) mmol/L Calcium (8.4-10.2) mg/dL Magnesium (1.6-2.3) mg/dL AST (17-59) U/L Alkaline Phosphatase (38-126) U/L Troponin I (0.000-0.034) ng/mL Total Protein (6.3-8.2) g/dL Albumin (3.5-5.0) g/dL Procalcitonin (0.02-0.09) ng/mL 10/18/21 10/18/21 10/18/21 Range/Units 22:19 23:31 23:31 WBC 31.1 H (3.8-10.6) k/uL RBC 2.38 L (4.30-5.90) m/uL Hgb 7.5 L (13.0-17.5) gm/dL Hct 26.0 L (39.0-53.0) % MCV 109.3 H D (80.0-100.0) fL MCHC 28.8 L (31.0-37.0) g/dL RDW 18.1 H (11.5-15.5) % Plt Count 82 L (150-450) k/uL Neutrophils # (Manual) 27.00 H (1.3-7.7) k/uL Lymphocytes # (Manual) (1.0-4.8) k/uL Metamyelocytes # (Man) 0.93 H (0) k/uL Nucleated RBCs (0-0) /100 WBC Macrocytosis Marked A D-Dimer (<0.60) mg/L FEU ABG pH (7.35-7.45) ABG pCO2 (35-45) mmHg ABG pO2 (83-108) mmHg ABG HCO3 (21-25) mmol/L ABG Total CO2 (19-24) mmol/L ABG O2 Saturation (94-97) % Sodium 135 L (137-145) mmol/L Potassium 6.0 H (3.5-5.1) mmol/L Carbon Dioxide 14 L (22-30) mmol/L BUN 61 H (9-20) mg/dL Creatinine 10.31 H* (0.66-1.25) mg/dL Glucose 353 H (74-99) mg/dL POC Glucose (mg/dL) 298 H (75-99) mg/dL Plasma Lactic Acid Steven (0.7-2.0) mmol/L Calcium 6.5 L (8.4-10.2) mg/dL Magnesium 1.4 L (1.6-2.3) mg/dL AST 142 H (17-59) U/L Alkaline Phosphatase 131 H (38-126) U/L Troponin I (0.000-0.034) ng/mL Total Protein 5.2 L (6.3-8.2) g/dL Albumin 2.7 L (3.5-5.0) g/dL Procalcitonin (0.02-0.09) ng/mL 10/18/21 10/19/21 10/19/21 Range/Units 23:37 01:17 04:50 WBC (3.8-10.6) k/uL RBC (4.30-5.90) m/uL Hgb (13.0-17.5) gm/dL Hct (39.0-53.0) % MCV (80.0-100.0) fL MCHC (31.0-37.0) g/dL RDW (11.5-15.5) % Plt Count (150-450) k/uL Neutrophils # (Manual) (1.3-7.7) k/uL Lymphocytes # (Manual) (1.0-4.8) k/uL Metamyelocytes # (Man) (0) k/uL Nucleated RBCs (0-0) /100 WBC Macrocytosis D-Dimer (<0.60) mg/L FEU ABG pH 7.08 L* (7.35-7.45) ABG pCO2 48 H (35-45) mmHg ABG pO2 120 H (83-108) mmHg ABG HCO3 14 L (21-25) mmol/L ABG Total CO2 16 L (19-24) mmol/L ABG O2 Saturation (94-97) % Sodium (137-145) mmol/L Potassium (3.5-5.1) mmol/L Carbon Dioxide (22-30) mmol/L BUN (9-20) mg/dL Creatinine (0.66-1.25) mg/dL Glucose (74-99) mg/dL POC Glucose (mg/dL) (75-99) mg/dL Plasma Lactic Acid Steven 8.1 H* 6.8 H* (0.7-2.0) mmol/L Calcium (8.4-10.2) mg/dL Magnesium (1.6-2.3) mg/dL AST (17-59) U/L Alkaline Phosphatase (38-126) U/L Troponin I (0.000-0.034) ng/mL Total Protein (6.3-8.2) g/dL Albumin (3.5-5.0) g/dL Procalcitonin (0.02-0.09) ng/mL 10/19/21 10/19/21 10/19/21 Range/Units 05:00 05:00 05:56 WBC 38.0 H (3.8-10.6) k/uL RBC 2.77 L (4.30-5.90) m/uL Hgb 9.0 L D (13.0-17.5) gm/dL Hct 29.1 L (39.0-53.0) % MCV 104.9 H (80.0-100.0) fL MCHC 30.9 L (31.0-37.0) g/dL RDW 17.8 H (11.5-15.5) % Plt Count 86 L (150-450) k/uL Neutrophils # (Manual) 36.80 H (1.3-7.7) k/uL Lymphocytes # (Manual) 0.76 L (1.0-4.8) k/uL Metamyelocytes # (Man) (0) k/uL Nucleated RBCs (0-0) /100 WBC Macrocytosis Marked A D-Dimer (<0.60) mg/L FEU ABG pH 7.26 L (7.35-7.45) ABG pCO2 (35-45) mmHg ABG pO2 (83-108) mmHg ABG HCO3 18 L (21-25) mmol/L ABG Total CO2 (19-24) mmol/L ABG O2 Saturation 97.1 H (94-97) % Sodium 134 L (137-145) mmol/L Potassium 6.8 H* (3.5-5.1) mmol/L Carbon Dioxide 16 L (22-30) mmol/L BUN 67 H (9-20) mg/dL Creatinine 10.69 H* (0.66-1.25) mg/dL Glucose 419 H (74-99) mg/dL POC Glucose (mg/dL) (75-99) mg/dL Plasma Lactic Acid Steven (0.7-2.0) mmol/L Calcium 6.8 L (8.4-10.2) mg/dL Magnesium (1.6-2.3) mg/dL AST (17-59) U/L Alkaline Phosphatase (38-126) U/L Troponin I (0.000-0.034) ng/mL Total Protein (6.3-8.2) g/dL Albumin (3.5-5.0) g/dL Procalcitonin (0.02-0.09) ng/mL 10/19/21 Range/Units 09:01 WBC (3.8-10.6) k/uL RBC (4.30-5.90) m/uL Hgb (13.0-17.5) gm/dL Hct (39.0-53.0) % MCV (80.0-100.0) fL MCHC (31.0-37.0) g/dL RDW (11.5-15.5) % Plt Count (150-450) k/uL Neutrophils # (Manual) (1.3-7.7) k/uL Lymphocytes # (Manual) (1.0-4.8) k/uL Metamyelocytes # (Man) (0) k/uL Nucleated RBCs (0-0) /100 WBC Macrocytosis D-Dimer (<0.60) mg/L FEU ABG pH (7.35-7.45) ABG pCO2 (35-45) mmHg ABG pO2 (83-108) mmHg ABG HCO3 (21-25) mmol/L ABG Total CO2 (19-24) mmol/L ABG O2 Saturation (94-97) % Sodium (137-145) mmol/L Potassium (3.5-5.1) mmol/L Carbon Dioxide (22-30) mmol/L BUN (9-20) mg/dL Creatinine (0.66-1.25) mg/dL Glucose (74-99) mg/dL POC Glucose (mg/dL) 515 H (75-99) mg/dL Plasma Lactic Acid Steven (0.7-2.0) mmol/L Calcium (8.4-10.2) mg/dL Magnesium (1.6-2.3) mg/dL AST (17-59) U/L Alkaline Phosphatase (38-126) U/L Troponin I (0.000-0.034) ng/mL Total Protein (6.3-8.2) g/dL Albumin (3.5-5.0) g/dL Procalcitonin (0.02-0.09) ng/mL Microbiology - Last 24 Hours (Table) 10/18/21 22:28 Gram Stain - Preliminary Sputum Sputum Culture - Preliminary 10/18/21 08:10 Blood Culture Gram Stain - Preliminary Blood Blood Culture - Preliminary Staphylococcus aureus 10/18/21 08:27 Blood Culture Gram Stain - Preliminary Blood 10/18/21 08:27 Blood Culture - Final Blood 10/18/21 08:10 Blood Culture - Final Blood Assessment and Plan Assessment: Impression 1. ESRD on dialysis Friday, femoral permacath cath on the right side, had a cardiac arrest yesterday 10/18/2021 and currently on levo fed and vasopressin and on ventilator 100% FiO2 2. Admitted with fever of 103, recurrent staph bacteremia from 05/14/2021 and multiple blood cultures are positive. Last positive blood culture was 08/14/2021, subsequently -3 days on 08/16/2021, 08/17/2021 and 08/18/2021. Possibly infected hero graft, although a white cell scan was negative on 08/14/2021. A ANNABELLE was negative on 10/05/2021 3. Diabetic complication including right BKA remote . 4. Access problems. Clotted hero graft on the left side, he has femoral permacath on the right which is currently the functioning dialysis access. 5. Anemia hemoglobin 8.8. To ESRD rule out an deficiency 6. Hyperkalemia potassium was 6.8 and lactic acidosis, bicarb 16 with a gap of 19, secondary to cardiopulmonary arrest him as well as hyper glycemia blood sugar was 419 and 5:15 this morning Recommendation 1. Will proceed with dialysis. He was scheduled to be dialyzed yesterday was held because of him being unstable. 2. Hold the bicarb drip during the dialysis as we are dialyzing with a 40 mEq bicarb bath. 3. Continue levo fed and vasopressin. 4. Cover with antibiotics 5. Rule out DKA 6. Discontinue the Pereira catheter Poor prognosis
--- NOTE | 2021-10-19 09:33 | P.CONS ---
History of Present Illness - Reason for Consult Consult date: 10/18/21 sepsis Requesting physician: Cecily Abdalla - Chief Complaint weakness , shortness of breath x few days - History of Present Illness History of present illness : Patient is a 46-year-old male with a past medical history significant for end-stage renal disease on hemodialysis in this patient who did have a history of recurrent MSSA bacteremia secondary permacatheter for the patient did have a catheter exchange as well no other sites for placement of the permacatheter patient did state his bacteremia received IV cefazolin with dialysis and subsequently has been on oral suppressive Keflex therapy patient has been brought to the [facility] ER early this morning for evaluation of a fever, EMS was called to the patient house by family as the patient apparently was not acting right on arrival of EMS the patient was noticed to be weak did have a hard time breathing patient was hypoxic with O2 sats of 70% patient subsequently was brought to the hospital on arrival to the ER patient did have a fever of 103 F patient did have a normal white count initially h owever the white blood to 31.1 did have elevated potassium elevated lactic acid, procalcitonin was more than 100 liver enzymes are mildly elevated bilirubin is normal patient did have a chest x-ray perihilar infiltrate noted correlate for underlying pneumonia patient did have a CT angiogram of the chest no evidence of atelectasis no pulmonary nodule mild pulmonary embolism patient has been started on vancomycin and cefepime infectious disease was consulted for further management most information has been obtained from review the chart as the patient is currently lethargic and is unable to provide any history Review of system: Positive point has been mentioned in HPI complete review could not be obtained because of underlying mental status. Past medical history : Reviewed, documented below Past surgical history : Reviewed, documented below Social history: Reviewed, documented below Medications: Reviewed, as documented below EXAMINATION: Vital sigans= Reviewed and documented below GENERAL DESCRIPTION: Middle-aged male lying in bed, mild distress. No tachypnea or accessory muscle of respiration use. HEENT: Shows Pallor , no scleral icterus. Oral mucous membrane is dry. NECK: Trachea central, no thyromegaly. LUNGS: Unlabored breathing. Coarse breath sounds bilaterally. No wheeze or crackle. HEART: S1, S2, regular rate and rhythm. ABDOMEN: Soft, no tenderness , guarding or rigidity EXTREMITIES: No edema of feet. SKIN: No rash, no masses palpable. NEUROLOGICAL: The patient lethargic orientation could not be determined LABS AND RADIOLOGY: Reviewed results see below Assessment : Patient presented to hospital with sepsis in this patient did have a fever elevated white count with a source possible permacath infection versus pneumonia and will need to cover for the resistant gram positives as well as gram-negative pathogen patient abdominal was soft on clinical examination and no evidence of any cellulitis Plan: 1-blood cultures has been obtained those will be followed 2-patient to continue cefepime and vancomycin We will follow on clinical condition and cultures to further adjust medication if needed Thank you for this consultation we will follow the patient along with you Past Medical History Past Medical History: Diabetes Mellitus, Dialysis, GERD/Reflux, Hyperlipidemia, Pulmonary Embolus (PE), Renal Disease, Seizure Disorder, Syncope Additional Past Medical History / Comment(s): constipation, anemia, peripheral vascular disease, diabetes mellitus on insulin pump for blood sugar control, previous history of massive pulmonary embolism - ECOS, hyperlipidemia, HD at home, Hx of recurrent Line infections History of Any Multi-Drug Resistant Organisms: None Reported Additional Past Surgical History / Comment(s): tom cataract, peritoneal dialysis catheter rt side, ECOS 03/19/21, HERO HD site left chest, right forearm fistula - no longer active, left arm fistula - no longer active, right chest HD temp. HD cath., RBKA Past Anesthesia/Blood Transfusion Reactions: No Reported Reaction Past Psychological History: Anxiety, Depression Smoking Status: Never smoker Past Alcohol Use History: None Reported Past Drug Use History: None Reported - Past Family History Mother Family Medical History: Cancer Father Family Medical History: Dementia Medications and Allergies Home Medications Medication Instructions Recorded Confirmed Type Dialyvite 1 tab PO DAILY 01/31/17 10/18/21 History Ergocalciferol [Vitamin D2 50,000 unit PO Q14D 01/31/17 10/18/21 History (DRISDOL)] INSULIN LISPRO (For Pump) [humaLOG 0.01 units SQ-PUMP CONTINUOUS 01/31/17 10/18/21 History (For Pump)] Omeprazole [PriLOSEC] 20 mg PO BID 01/31/17 10/18/21 History Timolol [Betimol 0.5% Ophth Soln] 1 drop RIGHT EYE BID 01/31/17 10/18/21 History Furosemide [Lasix] 80 mg PO BID 10/01/20 10/18/21 History Pregabalin [Lyrica] 200 mg PO TID 10/01/20 10/18/21 History oxyCODONE-APAP 10-325MG [Percocet 1 tab PO Q6H 10/01/20 10/18/21 History 10-325 mg] Metoclopramide [Reglan] 5 mg PO AC-TID 03/16/21 10/18/21 History Midodrine HCl [ProAmatine] 10 mg PO TID 03/16/21 10/18/21 History Ondansetron HCl [Zofran] 4 mg PO BID 03/16/21 10/18/21 History Calcium Acetate [PhosLo] 667 mg PO AC-LUNCH 05/14/21 10/18/21 History Aspirin EC [Ecotrin Low Dose] 81 mg PO DAILY 08/06/21 10/18/21 History Dulaglutide [Trulicity] 1.5 mg SQ WE 08/06/21 10/18/21 History Heparin 1000 Units/Ml 6,400 units SQ MOTUTHFRSA 08/06/21 10/18/21 History Sennosides/Docusate Sodium [Senna 1 tab PO BID PRN 08/06/21 10/18/21 History Plus 8.6-50 mg Tablet] Vilazodone HCl [Viibryd] 40 mg PO PC-SUPPER 08/06/21 10/18/21 History traZODone HCL [Desyrel] 100 mg PO HS 08/06/21 10/18/21 History diazePAM [Valium] 2 mg PO TID PRN #6 tab 08/23/21 10/18/21 Rx Apixaban [Eliquis] 5 mg PO BID 10/18/21 10/18/21 History Allergies Allergy/AdvReac Type Severity Reaction Status Date / Time No Known Allergies Allergy Verified 10/18/21 09:36 Physical Exam Vitals: Vital Signs Temp Pulse Pulse Resp BP Pulse Ox 10/18/21 13:23 93 16 75/43 92 L 10/18/21 12:49 98.3 F 88 18 90/53 93 L 10/18/21 12:23 90 16 88/37 91 L 10/18/21 11:59 91 16 93/53 89 L 10/18/21 11:57 88 16 79/50 89 L 10/18/21 11:36 92 16 92/58 95 10/18/21 11:20 93 24 83/48 92 L 10/18/21 11:05 93 L 10/18/21 11:00 96 24 70/41 87 L 10/18/21 09:37 101.9 F H 104 H 16 79/54 90 L 10/18/21 08:33 107 H 16 91/70 90 L 10/18/21 08:03 105 H 16 82/44 93 L 10/18/21 07:42 106 H 18 77/47 92 L 10/18/21 07:26 113 H 18 10/18/21 07:20 93 L 10/18/21 07:16 103.1 F H 108 H 18 86/55 64 L Intake and Output 10/17/21 10/18/21 10/18/21 22:59 06:59 14:59 Intake Total 55.323 Balance 55.323 Intake: Intake, IV Titration 55.323 Amount Norepinephrine 4 mg In 55.323 Sodium Chloride 0.9% 250 ml @ 0.05 MCG/KG/MIN 10. 715 mls/hr IV [id number] Rx#:[id number] Other: Weight 56.245 kg Results CBC & Chem 7: 10/19/21 05:00 10/19/21 05:00 Labs: Abnormal Lab Results - Last 24 Hours (Table) 10/18/21 10/18/21 10/18/21 Range/Units 07:56 07:56 07:56 RBC 2.82 L (4.30-5.90) m/uL Hgb 8.8 L (13.0-17.5) gm/dL Hct 29.1 L (39.0-53.0) % MCV 103.2 H D (80.0-100.0) fL MCHC 30.3 L (31.0-37.0) g/dL RDW 17.7 H (11.5-15.5) % Plt Count 83 L D (150-450) k/uL Neutrophils # (Manual) 8.00 H (1.3-7.7) k/uL Lymphocytes # (Manual) 0.73 L (1.0-4.8) k/uL Metamyelocytes # (Man) 0.09 H (0) k/uL Nucleated RBCs 1 H (0-0) /100 WBC D-Dimer >34.10 H (<0.60) mg/L FEU VBG HCO3 (24-28) mmol/L BUN 58 H (9-20) mg/dL Creatinine 10.12 H* (0.66-1.25) mg/dL Glucose 245 H (74-99) mg/dL POC Glucose (mg/dL) (75-99) mg/dL Plasma Lactic Acid Steven (0.7-2.0) mmol/L Magnesium 1.3 L (1.6-2.3) mg/dL AST 60 H (17-59) U/L Lactate Dehydrogenase 1179 H (313-618) U/L Troponin I (0.000-0.034) ng/mL 10/18/21 10/18/21 10/18/21 Range/Units 07:56 07:56 07:56 RBC (4.30-5.90) m/uL Hgb (13.0-17.5) gm/dL Hct (39.0-53.0) % MCV (80.0-100.0) fL MCHC (31.0-37.0) g/dL RDW (11.5-15.5) % Plt Count (150-450) k/uL Neutrophils # (Manual) (1.3-7.7) k/uL Lymphocytes # (Manual) (1.0-4.8) k/uL Metamyelocytes # (Man) (0) k/uL Nucleated RBCs (0-0) /100 WBC D-Dimer (<0.60) mg/L FEU VBG HCO3 22 L (24-28) mmol/L BUN (9-20) mg/dL Creatinine (0.66-1.25) mg/dL Glucose (74-99) mg/dL POC Glucose (mg/dL) (75-99) mg/dL Plasma Lactic Acid Steven 4.2 H* (0.7-2.0) mmol/L Magnesium (1.6-2.3) mg/dL AST (17-59) U/L Lactate Dehydrogenase (313-618) U/L Troponin I 0.188 H* (0.000-0.034) ng/mL 10/18/21 10/18/2121 Range/Units 11:30 11:30 13:30 RBC (4.30-5.90) m/uL Hgb (13.0-17.5) gm/dL Hct (39.0-53.0) % MCV (80.0-100.0) fL MCHC (31.0-37.0) g/dL RDW (11.5-15.5) % Plt Count (150-450) k/uL Neutrophils # (Manual) (1.3-7.7) k/uL Lymphocytes # (Manual) (1.0-4.8) k/uL Metamyelocytes # (Man) (0) k/uL Nucleated RBCs (0-0) /100 WBC D-Dimer (<0.60) mg/L FEU VBG HCO3 (24-28) mmol/L BUN (9-20) mg/dL Creatinine (0.66-1.25) mg/dL Glucose (74-99) mg/dL POC Glucose (mg/dL) 289 H (75-99) mg/dL Plasma Lactic Acid Steven 2.6 H* (0.7-2.0) mmol/L Magnesium (1.6-2.3) mg/dL AST (17-59) U/L Lactate Dehydrogenase (313-618) U/L Troponin I 0.130 H* (0.000-0.034) ng/mL
[2021-10-19] MEDS ORDERED: INSULIN REGULAR BOLUS (FROM DRIP BAG) IV PRN (09:38)
[2021-10-19] MEDS: INSULIN ASPART (NovoLOG) 100 UNIT/ML VIAL SQ SCH (09:55)
--- NOTE | 2021-10-19 10:43 | P.PN ---
Subjective Progress Note Date: 10/19/21 10/19/2021, the patient remains critically ill patient is currently in the awaiting a bed be transferred to the ICU. Note that the patient came in because the septic condition. The patient is showing staph aureus. This could be recurrent septicemia knowing that the patient MSSA sepsis in the past. He is not hypotensive. the pressor requirements have gone up significantly. We have tried multiple occasions to obtain IV access as well as venous arterial access and this was unsuccessful. For now, the patient is currently receiving pressors and the patient is currently on norepinephrine 0.1 mcg/kg per minute with a permacath in the right femoral vein and this catheter itself may be also infected. Overnight, the patient went into asystole. He was given CPR and the round of epinephrine. Subsequently, there was again of spontaneous circulation and blood pressure. Currently is on norepinephrine running at 0.1 mg/kg per minute. He is also on vasopressin at 0.03 units an hour. The blood pressure measurement is obviously not reliable and we are using a cuff to measure his blood pressure. Unable to do an arterial line. Meanwhile, the patient remains on a mechanical ventilator. He is an assist-control mode of mechanical ventilation at the rate of 30 with an FiO2 of 100% and PEEP of 5 and tidal volume is at 400. The chest x-ray from today showing interstitial edema and fluid overload. ET tube is around 2 cm above the cristi. No significant airspace disease. Blood work from today shows a white cell count of 38 and hemoglobin 9.0. Blood cultures positive for staph aureus. Potassium level is at 6.8 and the patient is currently undergoing hemodialysis. Repeat lactic acid level came back at 5.4. Blood sugar is at 5 15 and the patient will be started on an insulin drip for blood sugar control. Antibiotic coverage is with cefepime and vancomycin. Meanwhile, the patient is sedated with propofol which is running at 40 mcg/kg per minute. Objective - Vital Signs Vital signs: Vital Signs Temp 97.9 F 10/19/21 08:26 Pulse 94 10/19/21 09:50 Resp 20 10/19/21 09:50 BP 101/40 10/19/21 09:50 Pulse Ox 100 10/19/21 09:50 Intake & Output 10/18/21 10/19/21 10/19/21 18:59 06:59 18:59 Intake Total 68.031 172.823 148.998 Balance 68.031 172.823 148.998 Weight 56.245 kg 100 kg Intake: Intake, IV Titration 68.031 172.823 148.998 Amount Norepinephrine 32 mg In 12.708 99.023 18.698 Sodium Chloride 0.9% 218 ml @ 0.05 MCG/KG/MIN 1. 318 mls/hr IV .Q24H [facility] Rx#:[id number] Norepinephrine 4 mg In 55.323 Sodium Chloride 0.9% 250 ml @ 0.05 MCG/KG/MIN 10. 715 mls/hr IV .[id number] [facility] Rx#:[id number] propofoL 1,000 mg In 73.8 130.3 Empty Bag 1 bag @ Titrate IV .Q0M [facility] Rx#: [id number] - Exam General: The patient is currently sedated, intubated on a mechanical ventilator. Orotracheal tube is in place. His, comfortable think is a mechanical ventilator. The abdominal evaluation, the patient was undergoing hemodialysis through a right femoral vein permacath. Derm: warm, dry Head: atraumatic, normocephalic, symmetric Eyes: EOMI, no lid lag, anicteric sclera, pupils pinpoint and sluggishly reactive ENT: Nose and ears atraumatic, no thrush, no pharyngeal erythema Neck: No thyromegaly, no cervical lymphadenopathy, trachea midline, supple Mouth: no lip lesion, mucus membranes dry Cardiovascular: S1S2 reg, no murmur, no palpable pulses, no edema, capillary refill less than 2 seconds Lungs: Decreased bs bilateral, no ronchi, no rales, + wheeze, no accessory muscle use Abdominal: soft, nontender to palpation, no guarding, no appreciable organomegaly, normal bowel sounds Ext: no gross muscle atrophy, + right BKA no signs of chronic ulceration Neuro: The patient is sedated with propofol CN II-XI grossly intact - Labs CBC & Chem 7: 10/19/21 05:00 10/19/21 05:00 Labs: Abnormal Lab Results - Last 24 Hours (Table) 10/18/21 10/18/21 10/18/21 Range/Units 07:56 11:30 11:30 WBC (3.8-10.6) k/uL RBC (4.30-5.90) m/uL Hgb (13.0-17.5) gm/dL Hct (39.0-53.0) % MCV (80.0-100.0) fL MCHC (31.0-37.0) g/dL RDW (11.5-15.5) % Plt Count (150-450) k/uL Neutrophils # (Manual) (1.3-7.7) k/uL Lymphocytes # (Manual) (1.0-4.8) k/uL Metamyelocytes # (Man) (0) k/uL Macrocytosis ABG pH (7.35-7.45) ABG pCO2 (35-45) mmHg ABG pO2 (83-108) mmHg ABG HCO3 (21-25) mmol/L ABG Total CO2 (19-24) mmol/L ABG O2 Saturation (94-97) % Sodium (137-145) mmol/L Potassium (3.5-5.1) mmol/L Carbon Dioxide (22-30) mmol/L BUN (9-20) mg/dL Creatinine (0.66-1.25) mg/dL Glucose (74-99) mg/dL POC Glucose (mg/dL) (75-99) mg/dL Plasma Lactic Acid Steven 2.6 H* (0.7-2.0) mmol/L Calcium (8.4-10.2) mg/dL Magnesium (1.6-2.3) mg/dL AST (17-59) U/L Alkaline Phosphatase (38-126) U/L Troponin I 0.130 H* (0.000-0.034) ng/mL Total Protein (6.3-8.2) g/dL Albumin (3.5-5.0) g/dL Procalcitonin >100.00 H (0.02-0.09) ng/mL 10/18/21 10/18/21 10/18/21 Range/Units 13:30 14:33 16:07 WBC (3.8-10.6) k/uL RBC (4.30-5.90) m/uL Hgb (13.0-17.5) gm/dL Hct (39.0-53.0) % MCV (80.0-100.0) fL MCHC (31.0-37.0) g/dL RDW (11.5-15.5) % Plt Count (150-450) k/uL Neutrophils # (Manual) (1.3-7.7) k/uL Lymphocytes # (Manual) (1.0-4.8) k/uL Metamyelocytes # (Man) (0) k/uL Macrocytosis ABG pH (7.35-7.45) ABG pCO2 (35-45) mmHg ABG pO2 (83-108) mmHg ABG HCO3 (21-25) mmol/L ABG Total CO2 (19-24) mmol/L ABG O2 Saturation (94-97) % Sodium (137-145) mmol/L Potassium (3.5-5.1) mmol/L Carbon Dioxide (22-30) mmol/L BUN (9-20) mg/dL Creatinine (0.66-1.25) mg/dL Glucose (74-99) mg/dL POC Glucose (mg/dL) 289 H (75-99) mg/dL Plasma Lactic Acid Setven 2.3 H* (0.7-2.0) mmol/L Calcium (8.4-10.2) mg/dL Magnesium (1.6-2.3) mg/dL AST (17-59) U/L Alkaline Phosphatase (38-126) U/L Troponin I 0.120 H* (0.000-0.034) ng/mL Total Protein (6.3-8.2) g/dL Albumin (3.5-5.0) g/dL Procalcitonin (0.02-0.09) ng/mL 10/18/21 10/18/21 10/18/21 Range/Units 18:50 19:00 21:27 WBC (3.8-10.6) k/uL RBC (4.30-5.90) m/uL Hgb (13.0-17.5) gm/dL Hct (39.0-53.0) % MCV (80.0-100.0) fL MCHC (31.0-37.0) g/dL RDW (11.5-15.5) % Plt Count (150-450) k/uL Neutrophils # (Manual) (1.3-7.7) k/uL Lymphocytes # (Manual) (1.0-4.8) k/uL Metamyelocytes # (Man) (0) k/uL Macrocytosis ABG pH (7.35-7.45) ABG pCO2 (35-45) mmHg ABG pO2 (83-108) mmHg ABG HCO3 (21-25) mmol/L ABG Total CO2 (19-24) mmol/L ABG O2 Saturation (94-97) % Sodium (137-145) mmol/L Potassium (3.5-5.1) mmol/L Carbon Dioxide (22-30) mmol/L BUN (9-20) mg/dL Creatinine (0.66-1.25) mg/dL Glucose (74-99) mg/dL POC Glucose (mg/dL) 292 H (75-99) mg/dL Plasma Lactic Acid Steven 2.5 H* 4.2 H* (0.7-2.0) mmol/L Calcium (8.4-10.2) mg/dL Magnesium (1.6-2.3) mg/dL AST (17-59) U/L Alkaline Phosphatase (38-126) U/L Troponin I (0.000-0.034) ng/mL Total Protein (6.3-8.2) g/dL Albumin (3.5-5.0) g/dL Procalcitonin (0.02-0.09) ng/mL 10/18/21 10/18/21 10/18/21 Range/Units 21:52 22:19 23:31 WBC 31.1 H (3.8-10.6) k/uL RBC 2.38 L (4.30-5.90) m/uL Hgb 7.5 L (13.0-17.5) gm/dL Hct 26.0 L (39.0-53.0) % MCV 109.3 H D (80.0-100.0) fL MCHC 28.8 L (31.0-37.0) g/dL RDW 18.1 H (11.5-15.5) % Plt Count 82 L (150-450) k/uL Neutrophils # (Manual) 27.00 H (1.3-7.7) k/uL Lymphocytes # (Manual) (1.0-4.8) k/uL Metamyelocytes # (Man) 0.93 H (0) k/uL Macrocytosis Marked A ABG pH (7.35-7.45) ABG pCO2 (35-45) mmHg ABG pO2 (83-108) mmHg ABG HCO3 (21-25) mmol/L ABG Total CO2 (19-24) mmol/L ABG O2 Saturation (94-97) % Sodium (137-145) mmol/L Potassium (3.5-5.1) mmol/L Carbon Dioxide (22-30) mmol/L BUN (9-20) mg/dL Creatinine (0.66-1.25) mg/dL Glucose (74-99) mg/dL POC Glucose (mg/dL) 286 H 298 H (75-99) mg/dL Plasma Lactic Acid Steven (0.7-2.0) mmol/L Calcium (8.4-10.2) mg/dL Magnesium (1.6-2.3) mg/dL AST (17-59) U/L Alkaline Phosphatase (38-126) U/L Troponin I (0.000-0.034) ng/mL Total Protein (6.3-8.2) g/dL Albumin (3.5-5.0) g/dL Procalcitonin (0.02-0.09) ng/mL 10/18/21 10/18/21 10/19/21 Range/Units 23:31 23:37 01:17 WBC (3.8-10.6) k/uL RBC (4.30-5.90) m/uL Hgb (13.0-17.5) gm/dL Hct (39.0-53.0) % MCV (80.0-100.0) fL MCHC (31.0-37.0) g/dL RDW (11.5-15.5) % Plt Count (150-450) k/uL Neutrophils # (Manual) (1.3-7.7) k/uL Lymphocytes # (Manual) (1.0-4.8) k/uL Metamyelocytes # (Man) (0) k/uL Macrocytosis ABG pH 7.08 L* (7.35-7.45) ABG pCO2 48 H (35-45) mmHg ABG pO2 120 H (83-108) mmHg ABG HCO3 14 L (21-25) mmol/L ABG Total CO2 16 L (19-24) mmol/L ABG O2 Saturation (94-97) % Sodium 135 L (137-145) mmol/L Potassium 6.0 H (3.5-5.1) mmol/L Carbon Dioxide 14 L (22-30) mmol/L BUN 61 H (9-20) mg/dL Creatinine 10.31 H* (0.66-1.25) mg/dL Glucose 353 H (74-99) mg/dL POC Glucose (mg/dL) (75-99) mg/dL Plasma Lactic Acid Steven 8.1 H* (0.7-2.0) mmol/L Calcium 6.5 L (8.4-10.2) mg/dL Magnesium 1.4 L (1.6-2.3) mg/dL AST 142 H (17-59) U/L Alkaline Phosphatase 131 H (38-126) U/L Troponin I (0.000-0.034) ng/mL Total Protein 5.2 L (6.3-8.2) g/dL Albumin 2.7 L (3.5-5.0) g/dL Procalcitonin (0.02-0.09) ng/mL 10/19/21 10/19/21 10/19/21 Range/Units 04:50 05:00 05:00 WBC 38.0 H (3.8-10.6) k/uL RBC 2.77 L (4.30-5.90) m/uL Hgb 9.0 L D (13.0-17.5) gm/dL Hct 29.1 L (39.0-53.0) % MCV 104.9 H (80.0-100.0) fL MCHC 30.9 L (31.0-37.0) g/dL RDW 17.8 H (11.5-15.5) % Plt Count 86 L (150-450) k/uL Neutrophils # (Manual) 36.80 H (1.3-7.7) k/uL Lymphocytes # (Manual) 0.76 L (1.0-4.8) k/uL Metamyelocytes # (Man) (0) k/uL Macrocytosis Marked A ABG pH (7.35-7.45) ABG pCO2 (35-45) mmHg ABG pO2 (83-108) mmHg ABG HCO3 (21-25) mmol/L ABG Total CO2 (19-24) mmol/L ABG O2 Saturation (94-97) % Sodium 134 L (137-145) mmol/L Potassium 6.8 H* (3.5-5.1) mmol/L Carbon Dioxide 16 L (22-30) mmol/L BUN 67 H (9-20) mg/dL Creatinine 10.69 H* (0.66-1.25) mg/dL Glucose 419 H (74-99) mg/dL POC Glucose (mg/dL) (75-99) mg/dL Plasma Lactic Acid Steven 6.8 H* (0.7-2.0) mmol/L Calcium 6.8 L (8.4-10.2) mg/dL Magnesium (1.6-2.3) mg/dL AST (17-59) U/L Alkaline Phosphatase (38-126) U/L Troponin I (0.000-0.034) ng/mL Total Protein (6.3-8.2) g/dL Albumin (3.5-5.0) g/dL Procalcitonin (0.02-0.09) ng/mL 10/19/21 10/19/21 10/19/21 Range/Units 05:56 09:01 09:45 WBC (3.8-10.6) k/uL RBC (4.30-5.90) m/uL Hgb (13.0-17.5) gm/dL Hct (39.0-53.0) % MCV (80.0-100.0) fL MCHC (31.0-37.0) g/dL RDW (11.5-15.5) % Plt Count (150-450) k/uL Neutrophils # (Manual) (1.3-7.7) k/uL Lymphocytes # (Manual) (1.0-4.8) k/uL Metamyelocytes # (Man) (0) k/uL Macrocytosis ABG pH 7.26 L (7.35-7.45) ABG pCO2 (35-45) mmHg ABG pO2 (83-108) mmHg ABG HCO3 18 L (21-25) mmol/L ABG Total CO2 (19-24) mmol/L ABG O2 Saturation 97.1 H (94-97) % Sodium (137-145) mmol/L Potassium (3.5-5.1) mmol/L Carbon Dioxide (22-30) mmol/L BUN (9-20) mg/dL Creatinine (0.66-1.25) mg/dL Glucose (74-99) mg/dL POC Glucose (mg/dL) 515 H (75-99) mg/dL Plasma Lactic Acid Steven 5.4 H* (0.7-2.0) mmol/L Calcium (8.4-10.2) mg/dL Magnesium (1.6-2.3) mg/dL AST (17-59) U/L Alkaline Phosphatase (38-126) U/L Troponin I (0.000-0.034) ng/mL Total Protein (6.3-8.2) g/dL Albumin (3.5-5.0) g/dL Procalcitonin (0.02-0.09) ng/mL Microbiology - Last 24 Hours (Table) 10/18/21 22:28 Gram Stain - Preliminary Sputum Sputum Culture - Preliminary 10/18/21 08:10 Blood Culture Gram Stain - Preliminary Blood Blood Culture - Preliminary Staphylococcus aureus 10/18/21 08:27 Blood Culture Gram Stain - Preliminary Blood 10/18/21 08:27 Blood Culture - Final Blood 10/18/21 08:10 Blood Culture - Final Blood Assessment and Plan Plan: 1 septic shock. The patient presents with fever, altered mentation, encephalopathy and hypotension likely due to recurrent sepsis. Most recent septicemia was related to MSSA and the patient has completed course of antibiotics using rifampin and cefazolin. A repeat ANNABELLE showed no evidence of any vegetation from 10/05/2021. Consider skin/catheter as being source of infection. No evidence of any pneumonia at this point in time. CT angiogram showed no evidence of pneumonia culture that showing staph aureus the patient is currently covered with a combination of cefepime and vancomycin. The patient remains hemodynamically unstable, requiring higher doses of pressors and the patient is currently on norepinephrine at 0.1 mcg/kg per minute and vasopressin physiologic dose. Note that this patient has been endovascular nightmare. There is no IV access in this patient. There is no arterial line access in this patient. The patient has a several permacath catheter in place for which she is receiving hemodialysis and the norepinephrine infusion is being run through the permacath. Blood pressure readings are essentially unreliable at this point in time. 2 altered mental status, encephalopathy related to sepsis 3. Cardiac asystole/arrest requiring CPR for around 2-3 minutes with GERD of spontaneous circulation. Currently related to sepsis and hyperkalemia. 4 hypotension currently on pressors second to septic shock 5 End stage renal disease on hemodialysis 3 times a week, TTS, 6 severe peripheral vascular disease with below-knee of dictation of the right 7 pulmonary embolism, secondary to 2 branches of the right lower lobe pulmonary artery current, currently on Eliquis 8 diabetes mellitus type 2, maintained on insulin pump on outpatient basis, currently off pump 9 troponin leak secondary to oxygen mismatch in the setting of an acute sepsis 10 hyperlipidemia 11 peripheral neuropathy secondary to diabetes mellitus 12 chronic anemia 13 preserved LV function with an ejection fraction of 55-60% along with severe pulmonary hypertension and paradoxic septal motion movement. Plan Continue vent support Keep sadated with propofol Continue cefepime vancomycin pending further cultures Titrate norepinephrine to maintain a mean artery pressure above 65 and contiue the vasopressin drip We are utilizing the dialysis catheter as a source for IV access and pressor use as the patient has been a difficult IV access and were unable to insert a triple lumen cath in this patient. start insulin drip Eliquis 2.5 mg by mouth twice a day Continue HD and repeat K level Long-term prognosis poor baseline above-mentioned comorbidities. We'll continue to follow. very critical. high Mortality. CC time > 30 min Time with Patient: Greater than 30
[2021-10-19] MEDS: INSULIN REGULAR 100 UNIT in SODIUM CHLORIDE 0.9% 100 ML IV SCH (11:00)
[2021-10-19] MEDS: NOREPINEPHRINE 32 MG in SODIUM CHLORIDE 0.9% 218 ML IV ONE (11:30)
[2021-10-19 11:41] LABS: Glucose,Whole Blood 253 mg/dL (75-99)
--- NOTE | 2021-10-19 12:23 | P.CRDCN ---
History of Present Illness History of present illness: HISTORY OF PRESENTING ILLNESS Patient is a pleasant 46-year-old male with history of end-stage renal disease on hemodialysis, PAD with previous amputations, DVT, diabetes mellitus on insulin pump, recurrent sepsis with staph aureus, prior concern of endocarditis, hypertension who presents secondary to altered mental status and lethargy. Patient currently intubated and sedated and therefore history is supplied by daughter as well as chart. Apparently he had been doing fairly well the prior week however had recently been taken off of antibiotics around a week ago for endovascular infection previously. He then apparently was noted to be more confused and therefore son brought him to the hospital. He previously hospitalization 08/23 where a right femoral dialysis catheter had been placed and has a nonfunctioning hero catheter in the left axillary area. He underwent a ANNABELLE 10/05 without any signs of endocarditis in the hospitalization. Evaluated in the ER and CTA showed possible pulmonary embolism as well as venous ultrasound showing a DVT. Blood cultures were found to be positive in place on antibiotics. He did have a CODE BLUE for approximately 3 minutes the morning of 10/18 with ROSC and was intubated and sedated. He has been placed pressors with vasopressin and Levophed. REVIEW OF SYSTEMS Unable to obtain secondary to sedation PHYSICAL EXAMINATION Vital signs reviewed. CONSTITUTIONAL: ill appearing, sedated and intubated HEENT: Head is normocephalic. Pupils are equal, round. Sclerae anicteric. Mucous membranes of the mouth are moist. No JVD. No carotid bruit. CHEST EXAMINATION: Lungs are clear to auscultation. No chest wall tenderness is noted on palpation or with deep breathing. HEART EXAMINATION: Regular rate and rhythm. S1, S2 heard. No murmurs, gallops or rub. ABDOMEN: Soft, nontender. Positive bowel sounds. EXTREMITIES: 2+ peripheral pulses, no lower extremity edema and no calf tenderness. NEUROLOGIC EXAMINATION: Patient is sedated ASSESSMENT 1. Septic shock 2. Staph aureus bacteremia 3. Possible history of endocarditis in the past, recent ANNABELLE showing no involvement 4. Elevated troponins, suspect type II mechanism related to sepsis, hypotension 5. Diabetes mellitus 6. Hypertension, currently hypotensive 7. End-stage renal disease on hemodialysis 8. PAD status post amputations 9. Status post cardiac arrest, suspect mainly related to sepsis less likely cardiac origin with PEA 10. DVT/Questionable pulmonary embolism PLAN Continue with supportive care for sepsis with vasopressors as needed. Check 2-D echo to evaluate left ventricular function as well as to rule out any concern of endocarditis. Continue with antibiotics. Continue to wean ventilator as tolerated. Continue with anticoagulation. Suspect source is more related to endovascular source and hemodialysis access. If blood cultures do not clear may consider repeat ANNABELLE pending TTE. Past Medical History Past Medical History: Diabetes Mellitus, Dialysis, GERD/Reflux, Hyperlipidemia, Pulmonary Embolus (PE), Renal Disease, Seizure Disorder, Syncope Additional Past Medical History / Comment(s): constipation, anemia, peripheral vascular disease, diabetes mellitus on insulin pump for blood sugar control, previous history of massive pulmonary embolism - ECOS, hyperlipidemia, HD at home, Hx of recurrent Line infections History of Any Multi-Drug Resistant Organisms: None Reported Additional Past Surgical History / Comment(s): tom cataract, peritoneal dialysis catheter rt side, ECOS 03/19/21, HERO HD site left chest, right forearm fistula - no longer active, left arm fistula - no longer active, right chest HD temp. HD cath., RBKA Past Anesthesia/Blood Transfusion Reactions: No Reported Reaction Past Psychological History: Anxiety, Depression Smoking Status: Never smoker Past Alcohol Use History: None Reported Past Drug Use History: None Reported - Past Family History Mother Family Medical History: Cancer Father Family Medical History: Dementia Medications and Allergies Home Medications Medication Instructions Recorded Confirmed Type Dialyvite 1 tab PO DAILY 01/31/17 10/18/21 History Ergocalciferol [Vitamin D2 50,000 unit PO Q14D 01/31/17 10/18/21 History (DRISDOL)] INSULIN LISPRO (For Pump) [humaLOG 0.01 units SQ-PUMP CONTINUOUS 01/31/17 10/18/21 History (For Pump)] Omeprazole [PriLOSEC] 20 mg PO BID 01/31/17 10/18/21 History Timolol [Betimol 0.5% Ophth Soln] 1 drop RIGHT EYE BID 01/31/17 10/18/21 History Furosemide [Lasix] 80 mg PO BID 10/01/20 10/18/21 History Pregabalin [Lyrica] 200 mg PO TID 10/01/20 10/18/21 History oxyCODONE-APAP 10-325MG [Percocet 1 tab PO Q6H 10/01/20 10/18/21 History 10-325 mg] Metoclopramide [Reglan] 5 mg PO AC-TID 03/16/21 10/18/21 History Midodrine HCl [ProAmatine] 10 mg PO TID 03/16/21 10/18/21 History Ondansetron HCl [Zofran] 4 mg PO BID 03/16/21 10/18/21 History Calcium Acetate [PhosLo] 667 mg PO AC-LUNCH 05/14/21 10/18/21 History Aspirin EC [Ecotrin Low Dose] 81 mg PO DAILY 08/06/21 10/18/21 History Dulaglutide [Trulicity] 1.5 mg SQ WE 08/06/21 10/18/21 History Heparin 1000 Units/Ml 6,400 units SQ MOTUTHFRSA 08/06/21 10/18/21 History Sennosides/Docusate Sodium [Senna 1 tab PO BID PRN 08/06/21 10/18/21 History Plus 8.6-50 mg Tablet] Vilazodone HCl [Viibryd] 40 mg PO PC-SUPPER 08/06/21 10/18/21 History traZODone HCL [Desyrel] 100 mg PO HS 08/06/21 10/18/21 History diazePAM [Valium] 2 mg PO TID PRN #6 tab 08/23/21 10/18/21 Rx Apixaban [Eliquis] 5 mg PO BID 10/18/21 10/18/21 History Allergies Allergy/AdvReac Type Severity Reaction Status Date / Time No Known Allergies Allergy Verified 10/18/21 09:36 Physical Exam Vitals: Vital Signs Temp Pulse Resp BP Pulse Ox 10/19/21 10:40 88 18 58/30 97 10/19/21 10:30 88 18 101/34 97 10/19/21 10:21 89 18 101/50 100 10/19/21 09:50 94 20 101/40 100 10/19/21 09:40 89 18 104/44 100 10/19/21 09:30 89 20 193/47 98 10/19/21 09:20 93 20 158/45 97 10/19/21 09:10 93 20 189/73 96 10/19/21 09:00 96 20 125/81 96 10/19/21 08:26 97.9 F 91 20 105/43 100 10/19/21 07:30 131 H 25 H 134/44 99 10/19/21 07:20 109 H 13 134/44 99 10/19/21 07:10 126 H 11 L 140/40 99 10/19/21 07:00 138 H 5 L 163/42 99 10/19/21 06:50 92 5 L 163/42 99 10/19/21 06:40 92 4 L 164/57 99 10/19/21 06:30 91 0 L 156/56 99 10/19/21 06:20 92 0 L 156/56 99 10/19/21 06:10 92 0 L 138/65 100 10/19/21 06:00 93 0 L 131/60 100 10/19/21 05:50 93 4 L 131/60 99 10/19/21 05:40 93 18 118/56 99 10/19/21 05:30 94 3 L 113/48 99 10/19/21 05:20 95 27 H 113/48 99 10/19/21 05:10 96 25 H 119/39 99 10/19/21 05:00 92 0 L 120/50 99 10/19/21 04:50 96 16 120/50 100 10/19/21 04:40 98 16 115/54 100 10/19/21 04:30 98 17 113/47 100 10/19/21 04:20 99 17 113/47 100 10/19/21 04:10 101 H 16 109/53 99 10/19/21 04:00 101 H 15 107/40 99 10/19/21 03:50 101 H 17 107/40 100 10/19/21 03:40 98 18 168/47 100 10/19/21 03:30 99 15 170/42 100 10/19/21 03:20 99 15 170/42 100 10/19/21 03:10 100 13 168/65 100 10/19/21 03:00 98 15 173/62 100 10/19/21 02:50 98 15 173/62 100 10/19/21 02:40 102 H 5 L 100/23 100 10/19/21 02:30 94 15 121/67 100 10/19/21 02:20 101 H 15 121/67 100 10/19/21 02:10 95 100 H 105/46 100 10/19/21 02:00 95 17 105/49 99 10/19/21 01:50 95 30 H 105/49 100 10/19/21 01:40 94 65 H 114/49 10/19/21 01:30 95 72 H 117/53 10/19/21 01:20 96 81 H 117/53 10/19/21 01:10 97 108 H 137/67 10/19/21 00:50 101 H 92 H 148/68 100 10/19/21 00:16 104 H 112/44 99 10/19/21 00:06 103/42 10/18/21 23:53 74/45 10/18/21 23:00 74/32 10/18/21 22:20 83/54 10/18/21 22:10 23 83/54 10/18/21 22:00 113 H 26 H 83/54 10/18/21 21:50 115 H 21 10/18/21 21:40 114 H 22 83/54 10/18/21 21:30 122 H 9 L 83/54 10/18/21 21:20 36 H 84/40 10/18/21 21:10 103 H 0 L 84/40 10/18/21 21:00 100 13 94/81 10/18/21 20:50 103 H 20 94/81 10/18/21 20:40 101 H 8 L 72/36 10/18/21 20:30 105 H 13 72/36 96 10/18/21 20:20 105 H 63 H 98/60 10/18/21 20:10 104 H 15 98/60 10/18/21 20:00 106 H 12 96/44 97 10/18/21 19:50 103 H 20 96/44 96 10/18/21 19:40 103 H 19 79/44 96 10/18/21 19:30 107 H 8 L 79/44 95 10/18/21 19:20 109 H 24 113/72 86 L 10/18/21 19:10 99 18 77/53 97 10/18/21 19:00 100 3 L 92/50 97 10/18/21 18:31 97.5 F L 105 H 16 81/53 94 L 10/18/21 17:00 96 16 116/51 93 L 10/18/21 16:36 91 16 104/50 93 L 10/18/21 16:22 90/57 10/18/21 15:58 86 24 70/38 93 L 10/18/21 15:44 85 16 68/42 10/18/21 15:29 86 16 83/51 94 L 10/18/21 14:05 86 20 81/65 91 L 10/18/21 13:23 93 16 75/43 92 L 10/18/21 12:50 89 15 90/53 10/18/21 12:49 98.3 F 88 18 90/53 93 L 10/18/21 12:23 90 16 88/37 91 L Intake and Output 10/18/21 10/19/21 10/19/21 22:59 06:59 14:59 Intake Total 51.595 133.936 181.341 Balance 51.595 133.936 181.341 Intake: Intake, IV Titration 51.595 133.936 181.341 Amount Insulin Regular 100 unit 5.892 In Sodium Chloride 0.9% 100 ml @ Per Protocol IV .Q0M [facility] Rx#:[id number] Norepinephrine 32 mg In 51.595 60.136 21.949 Sodium Chloride 0.9% 218 ml @ 0.05 MCG/KG/MIN 1. 318 mls/hr IV .Q24H [facility] Rx#:[id number] propofoL 1,000 mg In 73.8 153.5 Empty Bag 1 bag @ Titrate IV .Q0M [facility] Rx#: [id number] Other: Weight 100 kg Results 10/19/21 05:00 10/19/21 05:00 Cardiac Enzymes 10/18/21 10/18/21 10/18/21 Range/Units 11:30 14:33 23:31 AST 142 H (17-59) U/L Troponin I 0.130 H* 0.120 H* (0.000-0.034) ng/mL CBC 10/18/21 10/19/21 Range/Units 23:31 05:00 WBC 31.1 H 38.0 H (3.8-10.6) k/uL RBC 2.38 L 2.77 L (4.30-5.90) m/uL Hgb 7.5 L 9.0 L D (13.0-17.5) gm/dL Hct 26.0 L 29.1 L (39.0-53.0) % Plt Count 82 L 86 L (150-450) k/uL Comprehensive Metabolic Panel 10/18/21 10/19/21 Range/Units 23:31 05:00 Sodium 135 L 134 L (137-145) mmol/L Potassium 6.0 H 6.8 H* (3.5-5.1) mmol/L Chloride 101 99 (98-107) mmol/L Carbon Dioxide 14 L 16 L (22-30) mmol/L BUN 61 H 67 H (9-20) mg/dL Creatinine 10.31 H* 10.69 H* (0.66-1.25) mg/dL Glucose 353 H 419 H (74-99) mg/dL Calcium 6.5 L 6.8 L (8.4-10.2) mg/dL AST 142 H (17-59) U/L ALT 33 (4-49) U/L Alkaline Phosphatase 131 H (38-126) U/L Total Protein 5.2 L (6.3-8.2) g/dL Albumin 2.7 L (3.5-5.0) g/dL Current Medications Generic Name Dose Route Start Last Admin Trade Name Freq PRN Reason Stop Dose Admin Acetaminophen 650 mg 10/18/21 09:42 Acetaminophen Tab 325 Mg Tab PO Q6HR PRN Mild Pain or Fever > 100.5 Apixaban 2.5 mg 10/18/21 21:00 10/19/21 09:25 Apixaban 2.5 Mg Tablet PO Not Given BID [facility] Protocol Aspirin 81 mg 10/19/21 09:00 10/19/21 08:18 Aspirin 81 Mg PO Not Given DAILY [facility] Chlorhexidine Gluconate 15 ml 10/19/21 09:00 Chlorhexidine Gluconate 15 Ml Cup MUCOUS MEM BID [facility] Norepinephrine Bitartrate 4 mg 254 mls @ 10.715 mls/hr 10/18/21 11:00 10/18/21 13:10 / Sodium Chloride IV 0 mcg/kg/min .[id number] [facility] 0 mls/hr Titration Protocol 0.05 MCG/KG/MIN Norepinephrine Bitartrate 32 250 mls @ 1.318 mls/hr 10/18/21 12:25 10/19/21 11:00 mg/ Sodium Chloride IV 10/19/21 12:24 0.1 mcg/kg/min .Q24H [facility] 2.636 mls/hr Titration Protocol 0.05 MCG/KG/MIN Sodium Chloride 1,000 mls @ 75 mls/hr 10/18/21 13:45 10/19/21 04:53 Saline 0.9% IV 75 mls/hr .[id number] [facility] Administration Vasopressin 60 unit/ Sodium 153 mls @ 4.59 mls/hr 10/18/21 22:30 10/18/21 23:52 Chloride IV 4.59 mls/hr .Q24H [facility] Administration 0.03 UNITS/MIN Propofol 1,000 mg/ IV Solution 100 mls @ 0 mls/hr 10/18/21 23:00 10/19/21 10:57 IV 25 mcg/kg/min .Q0M [facility] 15 mls/hr Titration Protocol Titrate Midazolam HCl 50 mg/ Sodium 50 mls @ 1 mls/hr 10/18/21 23:00 10/19/21 01:24 Chloride IV 1 mg/hr .Q24H [facility] 1 mls/hr Administration Protocol 1 MG/HR Cefepime HCl 1 gm/ Sodium 50 mls @ 12.5 mls/hr 10/19/21 21:00 Chloride IVPB Q24H [facility] Insulin Human Regular 100 unit 101 mls @ 0 mls/hr 10/19/21 09:45 10/19/21 11:35 / Sodium Chloride IV 5 unit/hr .Q0M [facility] 5.05 mls/hr Titration Protocol Per Protocol Midodrine 10 mg 10/18/21 16:00 10/19/21 09:25 Midodrine 5 Mg Tab PO Not Given TID [facility] Miscellaneous Information 1 each 10/18/21 09:18 Vancomycin Iv Per Pharmacy 1 Each Mis MISCELLANE DIRECTED PRN Per Protocol Protocol Naloxone HCl 0.2 mg 10/18/21 09:42 Naloxone 0.4 Mg/Ml 1 Ml Vial IV Q2M PRN Opioid Reversal Ondansetron HCl 4 mg 10/18/21 13:39 Ondansetron 4 Mg/2 Ml Vial IVP Q8HR PRN Nausea And Vomiting Pantoprazole Sodium 40 mg 10/19/21 07:30 10/19/21 08:14 Pantoprazole 40 Mg Tablet PO Not Given DAILY@0730 [facility] Intake and Output 10/18/21 10/19/21 10/19/21 22:59 06:59 14:59 Intake Total 51.595 133.936 181.341 Balance 51.595 133.936 181.341 Intake: Intake, IV Titration 51.595 133.936 181.341 Amount Insulin Regular 100 unit 5.892 In Sodium Chloride 0.9% 100 ml @ Per Protocol IV .Q0M [facility] Rx#:[id number] Norepinephrine 32 mg In 51.595 60.136 21.949 Sodium Chloride 0.9% 218 ml @ 0.05 MCG/KG/MIN 1. 318 mls/hr IV .Q24H [facility] Rx#:[id number] propofoL 1,000 mg In 73.8 153.5 Empty Bag 1 bag @ Titrate IV .Q0M [facility] Rx#: [id number] Other: Weight 100 kg 10/19/21 05:00 10/19/21 05:00
[2021-10-19 12:30] LABS: Glucose,Whole Blood 231 mg/dL (75-99)
[2021-10-19 13:36] LABS: Glucose,Whole Blood 200 mg/dL (75-99)
[2021-10-19 14:32] LABS: Glucose,Whole Blood 196 mg/dL (75-99)
[2021-10-19 15:41] LABS: Glucose,Whole Blood 236 mg/dL (75-99)
[2021-10-19 17:05] LABS: Glucose,Whole Blood 248 mg/dL (75-99)
--- NOTE | 2021-10-19 17:14 | P.PN ---
Subjective Progress Note Date: 10/19/21 (delayed charting seen at 0910) Principal diagnosis: decreased responsiveness Patient is a 46-year-old male with known end-stage renal disease on hemodialysis currently out of facility on Friday//Friday, diabetes mellitus on insulin pump with neuropathy and history of right AKA he has been struggling with recurrent MSSA bacteremia associated HD line infections. He was recently discharged on 08/23 after her hospital stay where his hemodialysis catheter was changed out and a dialysis catheter was placed into his right groin. On discharge that time he was completing IV rifampin as well as 6 weeks of IV cefazolin. During that hospital stay he underwent CT chestabdomen/pelvis which showed no additional sources of bacteremia, he also underwent a tagged white blood cell scan which was negative. He did undergo a transesophageal echocardiogram on 10/05 without signs of endocarditis. He presented to the ED via EMS for altered mentation. He was found to be hyp otensive despite 500cc bolus. He was started on levophed. CTA chest with smaller thrombus then before. He was started on vanco and levaquin. COVID testing was negative. Blood cultures were obtained. Due to chronic thrombus and multiple veins we had to initiate levo through his hemodialysis catheter. There were unable to obtain an arterial line. He had a cardiac arrest with asystole and was given 1 round of epinephrine area and he was subsequently intubated. After the code his laboratory analysis was significantly different than prior showing hyperkalemia, white blood cell count of 38, and severe lactic acidosis. Lactic acidosis did not respond to IV fluids. He was started on a dextrose and sodium bicarbonate drip which resulted in hyperglycemia. Patient seen and examined at bedside. He is sedated. Events from overnight listed above. General: ill appearing, moderate distress, appears at stated age Derm: warm, dry Head: atraumatic, normocephalic, symmetric Eyes: EOMI, no lid lag, anicteric sclera Mouth: no lip lesion, mucus membranes moist Cardiovascular: S1S2 reg, no murmur, positive radial pulses bilaterally Lungs: Course bilateral, no rhonchi, no rales , no accessory muscle use, on vent Abdominal: soft, nontender to palpation, no guarding, no appreciable organomegaly, Pereira catheter in place with small amounts of hematuria Ext: no gross muscle atrophy, no edema, no contractures, right BKA Neuro: Sedated on vent Psych: Sedated on vent Assessment/plan: Gram-positive bacteremia, suspect MSSA Septic shock Lactic acidosis Acute hypoxic respiratory failure Asystole arrest with Rosc Acute encephalopathy, metabolic and secondary to infection line-await infectious disease recommendations - completed cefazolin 9 days prior to admission -Continue with Vanco and cefepime -IV fluids -Repeat blood cultures in a.m. -Vent management per pulmonary -Wean the Levophed and vasopressin as able -Poor overall prognosis - awati echo End-stage renal disease on hemodialysis-T//Sat Anemia of chronic renal disease Hyperkalemia Metabolic acidosis - HD today if BP tolerated - Nephrology recs - off bicarb gtt with HD Diabetes mellitus type 2 Maintained on insulin pump as an outpatient -Transition to insulin drip from short and long-acting -Accu-Cheks every hour -Hopefully improving glycemic control will improve his acidosis and hyperkalemia -Hemoglobin A1c 7.2 on 08/16/21 Elevated troponin -Likely reflective of end-stage renal disease -Cardiology recommendations appreciated Thromobocytopenia - likely reactive - follow CBC Chronic Pulmonary Embolsim with hx of Massive pulmonary embolism treated with EKOS 7 months ago - Eliquis GERD - PPI Dyslipidemia - not chronically on meds Seizure disorder Anemia of chronic renal disease Son updated over phone and aware of poor overall prognosis. DVT prophylaxis: redi Discussed with: patient, nursing, son, Dr. Celeste Anticipated discharge date: undetermined Anticipated discharge place: undetermined A total of 35 minutes was spent on the care of this complex patient more than 50% of the time was spent in counseling and care coordination. Objective - Vital Signs Vital signs: Vital Signs Temp 97.9 F 10/19/21 08:26 Pulse 85 10/19/21 16:33 Resp 16 10/19/21 14:00 BP 114/65 10/19/21 16:33 Pulse Ox 100 10/19/21 16:33 Intake & Output 10/18/21 10/19/21 10/19/21 18:59 06:59 18:59 Intake Total 68.031 172.823 260.804 Output Total 0 Balance 68.031 172.823 260.804 Weight 56.245 kg 100 kg Intake: Intake, IV Titration 68.031 172.823 260.804 Amount Insulin Regular 100 unit 26.966 In Sodium Chloride 0.9% 100 ml @ Per Protocol IV .Q0M [facility] Rx#:[id number] Norepinephrine 32 mg In 12.708 99.023 33.838 Sodium Chloride 0.9% 218 ml @ 0.05 MCG/KG/MIN 1. 318 mls/hr IV .Q24H [facility] Rx#:[id number] Norepinephrine 4 mg In 55.323 Sodium Chloride 0.9% 250 ml @ 0.05 MCG/KG/MIN 10. 715 mls/hr IV .[id number] [facility] Rx#:[id number] propofoL 1,000 mg In 73.8 200.00 Empty Bag 1 bag @ Titrate IV .Q0M [facility] Rx#: [id number] Output: Hemodialysis 0 - Labs CBC & Chem 7: 10/19/21 05:00 10/19/21 05:00 Labs: Abnormal Lab Results - Last 24 Hours (Table) 10/18/21 10/18/21 10/18/21 Range/Units 18:50 19:00 21:27 WBC (3.8-10.6) k/uL RBC (4.30-5.90) m/uL Hgb (13.0-17.5) gm/dL Hct (39.0-53.0) % MCV (80.0-100.0) fL MCHC (31.0-37.0) g/dL RDW (11.5-15.5) % Plt Count (150-450) k/uL Neutrophils # (Manual) (1.3-7.7) k/uL Lymphocytes # (Manual) (1.0-4.8) k/uL Metamyelocytes # (Man) (0) k/uL Macrocytosis ABG pH (7.35-7.45) ABG pCO2 (35-45) mmHg ABG pO2 (83-108) mmHg ABG HCO3 (21-25) mmol/L ABG Total CO2 (19-24) mmol/L ABG O2 Saturation (94-97) % Sodium (137-145) mmol/L Potassium (3.5-5.1) mmol/L Carbon Dioxide (22-30) mmol/L BUN (9-20) mg/dL Creatinine (0.66-1.25) mg/dL Glucose (74-99) mg/dL POC Glucose (mg/dL) 292 H (75-99) mg/dL Plasma Lactic Acid Steven 2.5 H* 4.2 H* (0.7-2.0) mmol/L Calcium (8.4-10.2) mg/dL Magnesium (1.6-2.3) mg/dL AST (17-59) U/L Alkaline Phosphatase (38-126) U/L Total Protein (6.3-8.2) g/dL Albumin (3.5-5.0) g/dL 10/18/21 10/18/21 10/18/21 Range/Units 21:52 22:19 23:31 WBC 31.1 H (3.8-10.6) k/uL RBC 2.38 L (4.30-5.90) m/uL Hgb 7.5 L (13.0-17.5) gm/dL Hct 26.0 L (39.0-53.0) % MCV 109.3 H D (80.0-100.0) fL MCHC 28.8 L (31.0-37.0) g/dL RDW 18.1 H (11.5-15.5) % Plt Count 82 L (150-450) k/uL Neutrophils # (Manual) 27.00 H (1.3-7.7) k/uL Lymphocytes # (Manual) (1.0-4.8) k/uL Metamyelocytes # (Man) 0.93 H (0) k/uL Macrocytosis Marked A ABG pH (7.35-7.45) ABG pCO2 (35-45) mmHg ABG pO2 (83-108) mmHg ABG HCO3 (21-25) mmol/L ABG Total CO2 (19-24) mmol/L ABG O2 Saturation (94-97) % Sodium (137-145) mmol/L Potassium (3.5-5.1) mmol/L Carbon Dioxide (22-30) mmol/L BUN (9-20) mg/dL Creatinine (0.66-1.25) mg/dL Glucose (74-99) mg/dL POC Glucose (mg/dL) 286 H 298 H (75-99) mg/dL Plasma Lactic Acid Steven (0.7-2.0) mmol/L Calcium (8.4-10.2) mg/dL Magnesium (1.6-2.3) mg/dL AST (17-59) U/L Alkaline Phosphatase (38-126) U/L Total Protein (6.3-8.2) g/dL Albumin (3.5-5.0) g/dL 10/18/21 10/18/21 10/19/21 Range/Units 23:31 23:37 01:17 WBC (3.8-10.6) k/uL RBC (4.30-5.90) m/uL Hgb (13.0-17.5) gm/dL Hct (39.0-53.0) % MCV (80.0-100.0) fL MCHC (31.0-37.0) g/dL RDW (11.5-15.5) % Plt Count (150-450) k/uL Neutrophils # (Manual) (1.3-7.7) k/uL Lymphocytes # (Manual) (1.0-4.8) k/uL Metamyelocytes # (Man) (0) k/uL Macrocytosis ABG pH 7.08 L* (7.35-7.45) ABG pCO2 48 H (35-45) mmHg ABG pO2 120 H (83-108) mmHg ABG HCO3 14 L (21-25) mmol/L ABG Total CO2 16 L (19-24) mmol/L ABG O2 Saturation (94-97) % Sodium 135 L (137-145) mmol/L Potassium 6.0 H (3.5-5.1) mmol/L Carbon Dioxide 14 L (22-30) mmol/L BUN 61 H (9-20) mg/dL Creatinine 10.31 H* (0.66-1.25) mg/dL Glucose 353 H (74-99) mg/dL POC Glucose (mg/dL) (75-99) mg/dL Plasma Lactic Acid Steven 8.1 H* (0.7-2.0) mmol/L Calcium 6.5 L (8.4-10.2) mg/dL Magnesium 1.4 L (1.6-2.3) mg/dL AST 142 H (17-59) U/L Alkaline Phosphatase 131 H (38-126) U/L Total Protein 5.2 L (6.3-8.2) g/dL Albumin 2.7 L (3.5-5.0) g/dL 10/19/21 10/19/21 10/19/21 Range/Units 04:50 05:00 05:00 WBC 38.0 H (3.8-10.6) k/uL RBC 2.77 L (4.30-5.90) m/uL Hgb 9.0 L D (13.0-17.5) gm/dL Hct 29.1 L (39.0-53.0) % MCV 104.9 H (80.0-100.0) fL MCHC 30.9 L (31.0-37.0) g/dL RDW 17.8 H (11.5-15.5) % Plt Count 86 L (150-450) k/uL Neutrophils # (Manual) 36.80 H (1.3-7.7) k/uL Lymphocytes # (Manual) 0.76 L (1.0-4.8) k/uL Metamyelocytes # (Man) (0) k/uL Macrocytosis Marked A ABG pH (7.35-7.45) ABG pCO2 (35-45) mmHg ABG pO2 (83-108) mmHg ABG HCO3 (21-25) mmol/L ABG Total CO2 (19-24) mmol/L ABG O2 Saturation (94-97) % Sodium 134 L (137-145) mmol/L Potassium 6.8 H* (3.5-5.1) mmol/L Carbon Dioxide 16 L (22-30) mmol/L BUN 67 H (9-20) mg/dL Creatinine 10.69 H* (0.66-1.25) mg/dL Glucose 419 H (74-99) mg/dL POC Glucose (mg/dL) (75-99) mg/dL Plasma Lactic Acid Steven 6.8 H* (0.7-2.0) mmol/L Calcium 6.8 L (8.4-10.2) mg/dL Magnesium (1.6-2.3) mg/dL AST (17-59) U/L Alkaline Phosphatase (38-126) U/L Total Protein (6.3-8.2) g/dL Albumin (3.5-5.0) g/dL 10/19/21 10/19/21 10/19/21 Range/Units 05:56 09:01 09:45 WBC (3.8-10.6) k/uL RBC (4.30-5.90) m/uL Hgb (13.0-17.5) gm/dL Hct (39.0-53.0) % MCV (80.0-100.0) fL MCHC (31.0-37.0) g/dL RDW (11.5-15.5) % Plt Count (150-450) k/uL Neutrophils # (Manual) (1.3-7.7) k/uL Lymphocytes # (Manual) (1.0-4.8) k/uL Metamyelocytes # (Man) (0) k/uL Macrocytosis ABG pH 7.26 L (7.35-7.45) ABG pCO2 (35-45) mmHg ABG pO2 (83-108) mmHg ABG HCO3 18 L (21-25) mmol/L ABG Total CO2 (19-24) mmol/L ABG O2 Saturation 97.1 H (94-97) % Sodium (137-145) mmol/L Potassium (3.5-5.1) mmol/L Carbon Dioxide (22-30) mmol/L BUN (9-20) mg/dL Creatinine (0.66-1.25) mg/dL Glucose (74-99) mg/dL POC Glucose (mg/dL) 515 H (75-99) mg/dL Plasma Lactic Acid Steven 5.4 H* (0.7-2.0) mmol/L Calcium (8.4-10.2) mg/dL Magnesium (1.6-2.3) mg/dL AST (17-59) U/L Alkaline Phosphatase (38-126) U/L Total Protein (6.3-8.2) g/dL Albumin (3.5-5.0) g/dL 10/19/21 10/19/21 10/19/21 Range/Units 11:38 12:28 12:30 WBC (3.8-10.6) k/uL RBC (4.30-5.90) m/uL Hgb (13.0-17.5) gm/dL Hct (39.0-53.0) % MCV (80.0-100.0) fL MCHC (31.0-37.0) g/dL RDW (11.5-15.5) % Plt Count (150-450) k/uL Neutrophils # (Manual) (1.3-7.7) k/uL Lymphocytes # (Manual) (1.0-4.8) k/uL Metamyelocytes # (Man) (0) k/uL Macrocytosis ABG pH (7.35-7.45) ABG pCO2 (35-45) mmHg ABG pO2 (83-108) mmHg ABG HCO3 (21-25) mmol/L ABG Total CO2 (19-24) mmol/L ABG O2 Saturation (94-97) % Sodium (137-145) mmol/L Potassium (3.5-5.1) mmol/L Carbon Dioxide (22-30) mmol/L BUN (9-20) mg/dL Creatinine (0.66-1.25) mg/dL Glucose (74-99) mg/dL POC Glucose (mg/dL) 253 H 231 H (75-99) mg/dL Plasma Lactic Acid Steven 4.5 H* (0.7-2.0) mmol/L Calcium (8.4-10.2) mg/dL Magnesium (1.6-2.3) mg/dL AST (17-59) U/L Alkaline Phosphatase (38-126) U/L Total Protein (6.3-8.2) g/dL Albumin (3.5-5.0) g/dL 10/19/21 10/19/21 10/19/21 Range/Units 13:34 14:31 15:39 WBC (3.8-10.6) k/uL RBC (4.30-5.90) m/uL Hgb (13.0-17.5) gm/dL Hct (39.0-53.0) % MCV (80.0-100.0) fL MCHC (31.0-37.0) g/dL RDW (11.5-15.5) % Plt Count (150-450) k/uL Neutrophils # (Manual) (1.3-7.7) k/uL Lymphocytes # (Manual) (1.0-4.8) k/uL Metamyelocytes # (Man) (0) k/uL Macrocytosis ABG pH (7.35-7.45) ABG pCO2 (35-45) mmHg ABG pO2 (83-108) mmHg ABG HCO3 (21-25) mmol/L ABG Total CO2 (19-24) mmol/L ABG O2 Saturation (94-97) % Sodium (137-145) mmol/L Potassium (3.5-5.1) mmol/L Carbon Dioxide (22-30) mmol/L BUN (9-20) mg/dL Creatinine (0.66-1.25) mg/dL Glucose (74-99) mg/dL POC Glucose (mg/dL) 200 H 196 H 236 H (75-99) mg/dL Plasma Lactic Acid Steven (0.7-2.0) mmol/L Calcium (8.4-10.2) mg/dL Magnesium (1.6-2.3) mg/dL AST (17-59) U/L Alkaline Phosphatase (38-126) U/L Total Protein (6.3-8.2) g/dL Albumin (3.5-5.0) g/dL 10/19/21 Range/Units 15:51 WBC (3.8-10.6) k/uL RBC (4.30-5.90) m/uL Hgb (13.0-17.5) gm/dL Hct (39.0-53.0) % MCV (80.0-100.0) fL MCHC (31.0-37.0) g/dL RDW (11.5-15.5) % Plt Count (150-450) k/uL Neutrophils # (Manual) (1.3-7.7) k/uL Lymphocytes # (Manual) (1.0-4.8) k/uL Metamyelocytes # (Man) (0) k/uL Macrocytosis ABG pH (7.35-7.45) ABG pCO2 (35-45) mmHg ABG pO2 (83-108) mmHg ABG HCO3 (21-25) mmol/L ABG Total CO2 (19-24) mmol/L ABG O2 Saturation (94-97) % Sodium (137-145) mmol/L Potassium (3.5-5.1) mmol/L Carbon Dioxide (22-30) mmol/L BUN (9-20) mg/dL Creatinine (0.66-1.25) mg/dL Glucose (74-99) mg/dL POC Glucose (mg/dL) (75-99) mg/dL Plasma Lactic Acid Steven 4.5 H* (0.7-2.0) mmol/L Calcium (8.4-10.2) mg/dL Magnesium (1.6-2.3) mg/dL AST (17-59) U/L Alkaline Phosphatase (38-126) U/L Total Protein (6.3-8.2) g/dL Albumin (3.5-5.0) g/dL Microbiology - Last 24 Hours (Table) 10/18/21 08:27 Blood Culture Gram Stain - Preliminary Blood Blood Culture - Preliminary Staphylococcus aureus 10/18/21 08:10 Blood Culture Gram Stain - Preliminary Blood Blood Culture - Preliminary Staphylococcus aureus 10/18/21 22:28 Gram Stain - Preliminary Sputum Sputum Culture - Preliminary 10/18/21 08:27 Blood Culture - Final Blood 10/18/21 08:10 Blood Culture - Final Blood
[2021-10-19 18:09] LABS: Glucose,Whole Blood 238 mg/dL (75-99)
[2021-10-19] MEDS: NOREPINEPHRINE 4 MG in SODIUM CHLORIDE 0.9% 250 ML IV SCH (18:14)
[2021-10-19] MEDS: CHLORHEXIDINE GLUCONATE 15 ML CUP MUCOUS MEM SCH ×2 (18:14→21:00)
[2021-10-19 18:16] LABS: VBG PH 7.36 (7.31-7.41)
[2021-10-19 18:33] LABS: Albumin 2.9 g/dL (3.5-5.0); Calcium 7.4 mg/dL (8.4-10.2); Potassium 4.4 mmol/L (3.5-5.1); Total Bilirubin 0.7 mg/dL (0.2-1.3); Total Protein 5.6 g/dL (6.3-8.2)
[2021-10-19 19:12] LABS: Glucose,Whole Blood 224 mg/dL (75-99)
[2021-10-19 20:20] LABS: Glucose,Whole Blood 177 mg/dL (75-99)
[2021-10-19] MEDS ORDERED: CEFEPIME 1 GM in SODIUM CHLORIDE 0.9% 50 ML IVPB SCH ×4 (21:00)
[2021-10-19 21:23] LABS: Glucose,Whole Blood 197 mg/dL (75-99)
[2021-10-19 21:53] LABS: Glucose,Whole Blood 205 mg/dL (75-99)
[2021-10-19 23:14] LABS: Glucose,Whole Blood 177 mg/dL (75-99)
--- NOTE | 2021-10-20 00:24 | PN ---
PROGRESS NOTE DATE OF SERVICE: 10/19/2021 REASON FOR FOLLOWUP: Sepsis, pneumonia and bacteremia. INTERVAL HISTORY: Patient did have a cardiac arrest last night and the patient ended up getting intubated. The patient is currently on pressors to maintain blood pressure. FiO2 is currently 90%. No significant purulent secretions in the ET, diarrhea or any other changes reported by the nursing staff. PHYSICAL EXAMINATION: Blood pressure is 107/63 with a pulse of 90, temperature of 98. He is 90% on 90% FIO2. General description is a middle-aged male intubated on the vent. Respiratory system: Unlabored breathing, decreased intensity of breath sounds. No wheeze. Heart S1, S2. Regular rate and rhythm. Abdomen soft. No tenderness. LABS: Hemoglobin is BUN of 38, creatinine 6.31. Procalcitonin more than 100. DIAGNOSTIC IMPRESSION AND PLAN: Patient with acute respiratory failure in this patient who did have a cardiac arrest. No evidence of streptococcal bacteremia, source could be the dialysis catheter infection and a component of aspiration pneumonia. Patient is covered with vancomycin for will continue for now with overall poor prognosis. Continue supportive care. MMODL / IJN: [id number] /
[2021-10-20 00:36] LABS: Glucose,Whole Blood 220 mg/dL (75-99)
[2021-10-20 02:12] LABS: Glucose,Whole Blood 231 mg/dL (75-99)
[2021-10-20 03:58] LABS: Glucose,Whole Blood 203 mg/dL (75-99)
[2021-10-20 05:08] LABS: Glucose,Whole Blood 205 mg/dL (75-99)
[2021-10-20 05:13] LABS: Anisocytosis Slight; HCT 24.5 % (39.0-53.0); Hypochromasia Moderate; MCH 31.9 pg (25.0-35.0); MCHC 32.7 g/dL (31.0-37.0); Macrocytosis Slight; Mean Platelet Volume 12.9; Platelet Count 78 k/uL (150-450); RBC 2.51 m/uL (4.30-5.90); RDW 17.9 % (11.5-15.5); WBC 25.6 k/uL (3.8-10.6)
[2021-10-20 05:14] LABS: MCV 97.5 fL (80.0-100.0)
[2021-10-20 05:24] LABS: Albumin 2.8 g/dL (3.5-5.0); Calcium 7.4 mg/dL (8.4-10.2); Magnesium 1.6 mg/dL (1.6-2.3); Phosphorus 4.2 mg/dL (2.5-4.5); Potassium 4.3 mmol/L (3.5-5.1); Total Bilirubin 0.8 mg/dL (0.2-1.3); Total Protein 5.4 g/dL (6.3-8.2)
[2021-10-20 05:29] LABS: Vancomycin,Random 14.8 ug/mL
[2021-10-20 05:55] LABS: ABG Base Excess 0.6 mmol/L; ABG HCO3 25 mmol/L (21-25); ABG Oxygen Saturation 94.3 % (94-97); ABG PCO2 36 mmHg (35-45); ABG PH 7.44 (7.35-7.45); ABG PO2 73 mmHg (83-108); ABG TCO2 26 mmol/L (19-24); Allen Test Performed? Yes
[2021-10-20 06:01] LABS: Glucose,Whole Blood 194 mg/dL (75-99)
[2021-10-20] MEDS: SODIUM CHLORIDE 0.9% 150 ML with VASOPRESSIN 60 UNIT IV SCH ×4 (06:34→23:56)
[2021-10-20 06:45] LABS: Glucose,Whole Blood 179 mg/dL (75-99)
[2021-10-20] MEDS: INSULIN REGULAR 100 UNIT in SODIUM CHLORIDE 0.9% 100 ML IV SCH (06:46)
--- NOTE | 2021-10-20 07:00 | XR ---
EXAMINATION TYPE: XR chest 1V portable DATE OF EXAM: 10/20/2021 5:39 AM COMPARISON:Chest radiograph from one day prior. CLINICAL INDICATION:Male, 46 years old with history of Tube placement; TECHNIQUE: Frontal view of the chest. FINDINGS: Lungs/Pleura: Scattered subtle reticular and hazy opacities. No evidence of pneumothorax, focal conso lidation or pleural effusion. Pulmonary vascularity: Unremarkable. Heart/mediastinum: Cardiomediastinal silhouette is unremarkable. Musculoskeletal: No acute osseous pathology. Lines/Tubes: Endotracheal tube with distal tip 4.0 cm above the cristi Nasogastric tube with its distal tip and side-port projecting under the diaphragm. Large-bore left venous catheter tip in the right atrium in similar position. IMPRESSION: 1. Endotracheal tube now in appropriate position. 2. Stable support tubes and reticular opacities.
[2021-10-20 07:50] LABS: Glucose,Whole Blood 168 mg/dL (75-99)
[2021-10-20 08:14] LABS: Glucose,Whole Blood 167 mg/dL (75-99)
--- NOTE | 2021-10-20 08:57 | P.PN ---
Subjective Progress Note Date: 10/20/21 Principal diagnosis: Septic shock with brief cardiac arrest The patient is seen today 10/20/2021 in follow-up. He presented with septic shock with staph bacteremia. He sustained a brief cardiac arrest while in the emergency room yesterday. He is seen today in follow-up in the intensive care unit. He remains intubated sedated and on the mechanical ventilator. Current settings are assist control at a rate of 30, tidal volume 400, FiO2 80% and a PEEP of 5. Morning blood gases reveal a P O2 of 73, pCO2 36, pH 7.44. White count 25.6. Hemoglobin 8.0. Platelets 78,000. Sodium 136. Potassium 4.3. Bicarb 21. BUN 47. Creatinine 6.95. Glucose 187. Lactic acid 3.6. AST 550. ALT 136. Pro-calcitonin was greater than 100. Current virus not detected. Today's chest x-ray could just remains stable. No evidence of pneumothorax. Endotracheal tube in good position. Nasogastric tube in good position. Evidence of hero catheter in the left subclavian. He has a right brachial arterial line in place. A right femoral hemodialysis catheter in place. Possibly the source of infection. Blood cultures are revealing staph aureus. Final ID is pending. He remains hypotensive and on pressors though improved. Currently on norepinephrine at 0.06 mcg/kg/m. He is on vasopressin at 0.03 and insulin at 4 units per hour. 0.9 normal saline at 20 ML's per hour. Tube f eedings to be initiated today. Plan to add Levemir insulin 30 units twice a day. No plans for hemodialysis today per nephrology. Objective - Vital Signs Vital signs: Vital Signs Temp 98.2 F 10/20/21 08:00 Pulse 87 10/20/21 08:00 Resp 30 H 10/20/21 08:00 BP 147/83 10/20/21 04:30 Pulse Ox 93 L 10/20/21 08:00 Intake & Output 10/19/21 10/20/21 10/20/21 18:59 06:59 18:59 Intake Total 280.804 528.062 Output Total 0 132 Balance 280.804 396.062 Weight 106.8 kg Intake: IV 20 250 .9 kvo 180 Cefepime 1 gm In Sodium 50 Chloride 0.9% 50 ml @ 12. 5 mls/hr IVPB Q12HR [facility] Rx#:[id number] Sodium Chloride 0.9% 1, 20 20 000 ml @ 75 mls/hr IV . [id number] [facility] Rx#:[id number] Intake, IV Titration 260.804 278.062 Amount Insulin Regular 100 unit 26.966 58.227 In Sodium Chloride 0.9% 100 ml @ Per Protocol IV .Q0M [facility] Rx#:[id number] Norepinephrine 32 mg In 33.838 19.835 Sodium Chloride 0.9% 218 ml @ 0.05 MCG/KG/MIN 1. 318 mls/hr IV .Q24H [facility] Rx#:[id number] Norepinephrine 4 mg In 0 Sodium Chloride 0.9% 250 ml @ 0.05 MCG/KG/MIN 10. 715 mls/hr IV .[id number] [facility] Rx#:[id number] propofoL 1,000 mg In 200.00 200 Empty Bag 1 bag @ Titrate IV .Q0M [facility] Rx#: [id number] Output: Urine 0 132 Hemodialysis 0 Other: Voiding Method Indwelling Catheter Indwelling Catheter ABP, PAP, CO, CI - Last Documented Arterial Blood Pressure 112/72 - Exam GENERAL EXAM: Intubated, sedated, obese 46-year-old male patient, comfortable in no apparent distress. HEAD: Normocephalic. EYES: Sluggish reaction of pupils, equal size. NOSE: Clear with pink turbinates. THROAT: Oral endotracheal and gastric tube secured in place. No erythema or exudates. NECK: No masses, no JVD. CHEST: No chest wall deformity. Left subclavian hero catheter embedded LUNGS: Equal air entry with few scattered rhonchi. CVS: S1 and S2 normal with no audible murmur, regular rhythm. ABDOMEN: No hepatosplenomegaly, normal bowel sounds, no guarding or rigidity. SPINE: No scoliosis or deformity SKIN: No rashes CENTRAL NERVOUS SYSTEM: No focal deficits, tone is normal in all 4 extremities. EXTREMITIES: Brachial arterial line in place. Right femoral hemodialysis catheter in place. Right below the knee amputation. There is no peripheral edema. No clubbing, no cyanosis. Peripheral pulses are weak. - Labs CBC & Chem 7: 10/20/21 04:25 10/20/21 04:25 Labs: Abnormal Lab Results - Last 24 Hours (Table) 10/19/21 10/19/21 10/19/21 Range/Units 09:01 09:45 11:38 WBC (3.8-10.6) k/uL RBC (4.30-5.90) m/uL Hgb (13.0-17.5) gm/dL Hct (39.0-53.0) % RDW (11.5-15.5) % Plt Count (150-450) k/uL ABG pO2 (83-108) mmHg ABG Total CO2 (19-24) mmol/L VBG HCO3 (24-28) mmol/L Sodium (137-145) mmol/L Carbon Dioxide (22-30) mmol/L BUN (9-20) mg/dL Creatinine (0.66-1.25) mg/dL Glucose (74-99) mg/dL POC Glucose (mg/dL) 515 H 253 H (75-99) mg/dL Plasma Lactic Acid Steven 5.4 H* (0.7-2.0) mmol/L Calcium (8.4-10.2) mg/dL AST (17-59) U/L ALT (4-49) U/L Total Protein (6.3-8.2) g/dL Albumin (3.5-5.0) g/dL 10/19/21 10/19/21 10/19/21 Range/Units 12:28 12:30 13:34 WBC (3.8-10.6) k/uL RBC (4.30-5.90) m/uL Hgb (13.0-17.5) gm/dL Hct (39.0-53.0) % RDW (11.5-15.5) % Plt Count (150-450) k/uL ABG pO2 (83-108) mmHg ABG Total CO2 (19-24) mmol/L VBG HCO3 (24-28) mmol/L Sodium (137-145) mmol/L Carbon Dioxide (22-30) mmol/L BUN (9-20) mg/dL Creatinine (0.66-1.25) mg/dL Glucose (74-99) mg/dL POC Glucose (mg/dL) 231 H 200 H (75-99) mg/dL Plasma Lactic Acid Steven 4.5 H* (0.7-2.0) mmol/L Calcium (8.4-10.2) mg/dL AST (17-59) U/L ALT (4-49) U/L Total Protein (6.3-8.2) g/dL Albumin (3.5-5.0) g/dL 10/19/21 10/19/21 10/19/21 Range/Units 14:31 15:39 15:51 WBC (3.8-10.6) k/uL RBC (4.30-5.90) m/uL Hgb (13.0-17.5) gm/dL Hct (39.0-53.0) % RDW (11.5-15.5) % Plt Count (150-450) k/uL ABG pO2 (83-108) mmHg ABG Total CO2 (19-24) mmol/L VBG HCO3 (24-28) mmol/L Sodium (137-145) mmol/L Carbon Dioxide (22-30) mmol/L BUN (9-20) mg/dL Creatinine (0.66-1.25) mg/dL Glucose (74-99) mg/dL POC Glucose (mg/dL) 196 H 236 H (75-99) mg/dL Plasma Lactic Acid Steven 4.5 H* (0.7-2.0) mmol/L Calcium (8.4-10.2) mg/dL AST (17-59) U/L ALT (4-49) U/L Total Protein (6.3-8.2) g/dL Albumin (3.5-5.0) g/dL 10/19/21 10/19/21 10/19/21 Range/Units 16:48 18:00 18:05 WBC (3.8-10.6) k/uL RBC (4.30-5.90) m/uL Hgb (13.0-17.5) gm/dL Hct (39.0-53.0) % RDW (11.5-15.5) % Plt Count (150-450) k/uL ABG pO2 (83-108) mmHg ABG Total CO2 (19-24) mmol/L VBG HCO3 23 L (24-28) mmol/L Sodium 136 L (137-145) mmol/L Carbon Dioxide 20 L (22-30) mmol/L BUN 38 H (9-20) mg/dL Creatinine 6.31 H (0.66-1.25) mg/dL Glucose 223 H (74-99) mg/dL POC Glucose (mg/dL) 248 H (75-99) mg/dL Plasma Lactic Acid Steven (0.7-2.0) mmol/L Calcium 7.4 L (8.4-10.2) mg/dL AST 296 H (17-59) U/L ALT 65 H (4-49) U/L Total Protein 5.6 L (6.3-8.2) g/dL Albumin 2.9 L (3.5-5.0) g/dL 10/19/21 10/19/21 10/19/21 Range/Units 18:07 18:46 19:11 WBC (3.8-10.6) k/uL RBC (4.30-5.90) m/uL Hgb (13.0-17.5) gm/dL Hct (39.0-53.0) % RDW (11.5-15.5) % Plt Count (150-450) k/uL ABG pO2 (83-108) mmHg ABG Total CO2 (19-24) mmol/L VBG HCO3 (24-28) mmol/L Sodium (137-145) mmol/L Carbon Dioxide (22-30) mmol/L BUN (9-20) mg/dL Creatinine (0.66-1.25) mg/dL Glucose (74-99) mg/dL POC Glucose (mg/dL) 238 H 224 H (75-99) mg/dL Plasma Lactic Acid Steven 6.2 H* (0.7-2.0) mmol/L Calcium (8.4-10.2) mg/dL AST (17-59) U/L ALT (4-49) U/L Total Protein (6.3-8.2) g/dL Albumin (3.5-5.0) g/dL 10/19/21 10/19/21 10/19/21 Range/Units 20:19 21:21 21:52 WBC (3.8-10.6) k/uL RBC (4.30-5.90) m/uL Hgb (13.0-17.5) gm/dL Hct (39.0-53.0) % RDW (11.5-15.5) % Plt Count (150-450) k/uL ABG pO2 (83-108) mmHg ABG Total CO2 (19-24) mmol/L VBG HCO3 (24-28) mmol/L Sodium (137-145) mmol/L Carbon Dioxide (22-30) mmol/L BUN (9-20) mg/dL Creatinine (0.66-1.25) mg/dL Glucose (74-99) mg/dL POC Glucose (mg/dL) 177 H 197 H 205 H (75-99) mg/dL Plasma Lactic Acid Steven (0.7-2.0) mmol/L Calcium (8.4-10.2) mg/dL AST (17-59) U/L ALT (4-49) U/L Total Protein (6.3-8.2) g/dL Albumin (3.5-5.0) g/dL 10/19/21 10/19/21 10/20/21 Range/Units 21:55 23:12 00:35 WBC (3.8-10.6) k/uL RBC (4.30-5.90) m/uL Hgb (13.0-17.5) gm/dL Hct (39.0-53.0) % RDW (11.5-15.5) % Plt Count (150-450) k/uL ABG pO2 (83-108) mmHg ABG Total CO2 (19-24) mmol/L VBG HCO3 (24-28) mmol/L Sodium (137-145) mmol/L Carbon Dioxide (22-30) mmol/L BUN (9-20) mg/dL Creatinine (0.66-1.25) mg/dL Glucose (74-99) mg/dL POC Glucose (mg/dL) 177 H 220 H (75-99) mg/dL Plasma Lactic Acid Steven 5.9 H* (0.7-2.0) mmol/L Calcium (8.4-10.2) mg/dL AST (17-59) U/L ALT (4-49) U/L Total Protein (6.3-8.2) g/dL Albumin (3.5-5.0) g/dL 10/20/21 10/20/21 10/20/21 Range/Units 02:10 03:56 04:25 WBC (3.8-10.6) k/uL RBC (4.30-5.90) m/uL Hgb (13.0-17.5) gm/dL Hct (39.0-53.0) % RDW (11.5-15.5) % Plt Count (150-450) k/uL ABG pO2 (83-108) mmHg ABG Total CO2 (19-24) mmol/L VBG HCO3 (24-28) mmol/L Sodium 136 L (137-145) mmol/L Carbon Dioxide 21 L (22-30) mmol/L BUN 47 H (9-20) mg/dL Creatinine 6.95 H (0.66-1.25) mg/dL Glucose 187 H (74-99) mg/dL POC Glucose (mg/dL) 231 H 203 H (75-99) mg/dL Plasma Lactic Acid Steven (0.7-2.0) mmol/L Calcium 7.4 L (8.4-10.2) mg/dL AST 550 H (17-59) U/L ALT 136 H (4-49) U/L Total Protein 5.4 L (6.3-8.2) g/dL Albumin 2.8 L (3.5-5.0) g/dL 10/20/21 10/20/21 10/20/21 Range/Units 04:25 04:25 05:06 WBC 25.6 H (3.8-10.6) k/uL RBC 2.51 L (4.30-5.90) m/uL Hgb 8.0 L (13.0-17.5) gm/dL Hct 24.5 L (39.0-53.0) % RDW 17.9 H (11.5-15.5) % Plt Count 78 L (150-450) k/uL ABG pO2 (83-108) mmHg ABG Total CO2 (19-24) mmol/L VBG HCO3 (24-28) mmol/L Sodium (137-145) mmol/L Carbon Dioxide (22-30) mmol/L BUN (9-20) mg/dL Creatinine (0.66-1.25) mg/dL Glucose (74-99) mg/dL POC Glucose (mg/dL) 205 H (75-99) mg/dL Plasma Lactic Acid Steven 3.6 H* (0.7-2.0) mmol/L Calcium (8.4-10.2) mg/dL AST (17-59) U/L ALT (4-49) U/L Total Protein (6.3-8.2) g/dL Albumin (3.5-5.0) g/dL 10/20/21 10/20/21 10/20/21 Range/Units 05:50 06:00 06:43 WBC (3.8-10.6) k/uL RBC (4.30-5.90) m/uL Hgb (13.0-17.5) gm/dL Hct (39.0-53.0) % RDW (11.5-15.5) % Plt Count (150-450) k/uL ABG pO2 73 L (83-108) mmHg ABG Total CO2 26 H (19-24) mmol/L VBG HCO3 (24-28) mmol/L Sodium (137-145) mmol/L Carbon Dioxide (22-30) mmol/L BUN (9-20) mg/dL Creatinine (0.66-1.25) mg/dL Glucose (74-99) mg/dL POC Glucose (mg/dL) 194 H 179 H (75-99) mg/dL Plasma Lactic Acid Steven (0.7-2.0) mmol/L Calcium (8.4-10.2) mg/dL AST (17-59) U/L ALT (4-49) U/L Total Protein (6.3-8.2) g/dL Albumin (3.5-5.0) g/dL 10/20/21 10/20/21 Range/Units 07:49 08:13 WBC (3.8-10.6) k/uL RBC (4.30-5.90) m/uL Hgb (13.0-17.5) gm/dL Hct (39.0-53.0) % RDW (11.5-15.5) % Plt Count (150-450) k/uL ABG pO2 (83-108) mmHg ABG Total CO2 (19-24) mmol/L VBG HCO3 (24-28) mmol/L Sodium (137-145) mmol/L Carbon Dioxide (22-30) mmol/L BUN (9-20) mg/dL Creatinine (0.66-1.25) mg/dL Glucose (74-99) mg/dL POC Glucose (mg/dL) 168 H 167 H (75-99) mg/dL Plasma Lactic Acid Steven (0.7-2.0) mmol/L Calcium (8.4-10.2) mg/dL AST (17-59) U/L ALT (4-49) U/L Total Protein (6.3-8.2) g/dL Albumin (3.5-5.0) g/dL Microbiology - Last 24 Hours (Table) 10/18/21 08:27 Blood Culture Gram Stain - Preliminary Blood Blood Culture - Preliminary Staphylococcus aureus 10/18/21 08:10 Blood Culture Gram Stain - Preliminary Blood Blood Culture - Preliminary Staphylococcus aureus 10/18/21 22:28 Gram Stain - Preliminary Sputum Sputum Culture - Preliminary Assessment and Plan Assessment: Septic shock and subsequent brief cardiac arrest while in the emergency department. He remains intubated on a mechanical ventilator today 10/20/2021 in the intensive care unit. Chest x-ray continues to show some minimal patchy atelectasis. No clear evidence of aspiration. Blood cultures are positive for staph aureus, final ID is pending. He is currently on vancomycin and cefepime. He does have a significant history of endocarditis and the last ANNABELLE on 10/05/2021 did not reveal any evidence of vegetation. Most likely the right femoral hemodialysis catheter is the source as this has been his only vascular access. 2 Altered mental status, encephalopathy related to sepsis 3 Shock liver secondary to sepsis 4 Cardiac arrest/asystole requiring CPR for about 2-3 minutes with return of spontaneous circulation. Suspect secondary to hyperkalemia. The patient did receive hemodialysis yesterday. 5 Hypotension secondary to sepsis requiring pressors in the form of norepinephrine and vasopressin 6 End-stage renal disease on hemodialysis Friday though did receive hemodialysis yesterday Friday. 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 Currently off. 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 Plan: The patient was seen and evaluated today Continue current vent settings for now No plans for weaning today No plans for hemodialysis today Add Levemir 30 units subcu twice a day Titrate off the insulin drip as tolerated Takedown the pressors as tolerated Anticoagulated with Eliquis Continue antibiotics per ID services Continue to follow and make further recommendations based on his clinical status Critical care time 38 minutes I, the cosigning physician, performed a history & physical examination of the patient. Lungs sounds few scattered rhonchi. Maintaining good O2 saturations in the 90s on the ventilator. I discussed the assessment and plan of care with my nurse practitioner, Taylor Black. I attest to the above note as dictated by her.
--- NOTE | 2021-10-20 08:59 | P.PN ---
Subjective HISTORY OF PRESENTING ILLNESS Patient is a pleasant 46-year-old male with history of end-stage renal disease on hemodialysis, PAD with previous amputations, DVT, diabetes mellitus on insulin pump, recurrent sepsis with staph aureus, prior concern of endocarditis, hypertension who presents secondary to altered mental status and lethargy. Patient currently intubated and sedated and therefore history is supplied by daughter as well as chart. Apparently he had been doing fairly well the prior week however had recently been taken off of antibiotics around a week ago for endovascular infection previously. He then apparently was noted to be more confused and therefore son brought him to the hospital. He previously hospitalization 08/23 where a right femoral dialysis catheter had been placed and has a nonfunctioning hero catheter in the left axillary area. He underwent a ANNABELLE 10/05 without any signs of endocarditis in the hospitalization. Evaluated in the ER and CTA showed possible pulmonary embolism as well as venous ultrasound showing a DVT. Blood cultures were found to be positive in place on antibiotics. He did have a CODE BLUE for approximately 3 minutes the morning of 10/18 with ROSC and was intubated and sedated. He has been placed pressors with vasopressin and Levophed. 10/20 Patient seen and examined. Patient remains on vasopressin and norepinephrine. Patient has poor IV access. Remains sedated on ventilator with FiO2 of 80%. Patient receiving IV antibiotics. Echo performed yesterday and preliminary report without any significant vegetation or significant degree of regurgitation. REVIEW OF SYSTEMS Unable to obtain secondary to sedation PHYSICAL EXAMINATION Vital signs reviewed. CONSTITUTIONAL: ill appearing, sedated and intubated HEENT: Head is normocephalic. Pupils are equal, round. Sclerae anicteric. Mucous membranes of the mouth are moist. No JVD. No carotid bruit. CHEST EXAMINATION: Lungs are clear to auscultation. No chest wall tenderness is noted on palpation or with deep breathing. HEART EXAMINATION: Regular rate and rhythm. S1, S2 heard. No murmurs, gallops or rub. ABDOMEN: Soft, nontender. Positive bowel sounds. EXTREMITIES: 2+ peripheral pulses, no lower extremity edema and no calf t enderness. NEUROLOGIC EXAMINATION: Patient is sedated ASSESSMENT 1. Septic shock 2. Staph aureus bacteremia 3. Possible history of endocarditis in the past, recent ANNABELLE showing no involvement 4. Elevated troponins, suspect type II mechanism related to sepsis, hypotension 5. Diabetes mellitus 6. Hypertension, currently hypotensive 7. End-stage renal disease on hemodialysis 8. PAD status post amputations 9. Status post cardiac arrest, suspect mainly related to sepsis less likely cardiac origin with PEA 10. DVT/Questionable pulmonary embolism PLAN Continue supportive care. Preliminary echo report without any significant vegetation. More likely source is endovascular/dialysis access. If persistent bacteremia may consider ANNABELLE however no indication at this time. Tinea with anticoagulation for DVT. Prognosis guarded. Objective - Vital Signs Vital signs: Vital Signs Temp 98.2 F 10/20/21 08:00 Pulse 87 10/20/21 08:00 Resp 30 H 10/20/21 08:00 BP 147/83 10/20/21 04:30 Pulse Ox 93 L 10/20/21 08:00 Intake & Output 10/19/21 10/20/21 10/20/21 18:59 06:59 18:59 Intake Total 280.804 528.062 20 Output Total 0 132 Balance 280.804 396.062 20 Weight 106.8 kg Intake: IV 20 250 20 .9 kvo 180 20 Cefepime 1 gm In Sodium 50 Chloride 0.9% 50 ml @ 12. 5 mls/hr IVPB Q12HR [facility] Rx#:[id number] Sodium Chloride 0.9% 1, 20 20 000 ml @ 75 mls/hr IV . [id number] [facility] Rx#:[id number] Intake, IV Titration 260.804 278.062 Amount Insulin Regular 100 unit 26.966 58.227 In Sodium Chloride 0.9% 100 ml @ Per Protocol IV .Q0M [facility] Rx#:[id number] Norepinephrine 32 mg In 33.838 19.835 Sodium Chloride 0.9% 218 ml @ 0.05 MCG/KG/MIN 1. 318 mls/hr IV .Q24H [facility] Rx#:[id number] Norepinephrine 4 mg In 0 Sodium Chloride 0.9% 250 ml @ 0.05 MCG/KG/MIN 10. 715 mls/hr IV .[id number] [facility] Rx#:[id number] propofoL 1,000 mg In 200.00 200 Empty Bag 1 bag @ Titrate IV .Q0M [facility] Rx#: [id number] Output: Urine 0 132 Hemodialysis 0 Other: Voiding Method Indwelling Catheter Indwelling Catheter ABP, PAP, CO, CI - Last Documented Arterial Blood Pressure 112/72 - Labs CBC & Chem 7: 10/20/21 04:25 10/20/21 04:25 Labs: Abnormal Lab Results - Last 24 Hours (Table) 10/19/21 10/19/21 10/19/21 Range/Units 09:01 09:45 11:38 WBC (3.8-10.6) k/uL RBC (4.30-5.90) m/uL Hgb (13.0-17.5) gm/dL Hct (39.0-53.0) % RDW (11.5-15.5) % Plt Count (150-450) k/uL ABG pO2 (83-108) mmHg ABG Total CO2 (19-24) mmol/L VBG HCO3 (24-28) mmol/L Sodium (137-145) mmol/L Carbon Dioxide (22-30) mmol/L BUN (9-20) mg/dL Creatinine (0.66-1.25) mg/dL Glucose (74-99) mg/dL POC Glucose (mg/dL) 515 H 253 H (75-99) mg/dL Plasma Lactic Acid Steven 5.4 H* (0.7-2.0) mmol/L Calcium (8.4-10.2) mg/dL AST (17-59) U/L ALT (4-49) U/L Total Protein (6.3-8.2) g/dL Albumin (3.5-5.0) g/dL 10/19/21 10/19/21 10/19/21 Range/Units 12:28 12:30 13:34 WBC (3.8-10.6) k/uL RBC (4.30-5.90) m/uL Hgb (13.0-17.5) gm/dL Hct (39.0-53.0) % RDW (11.5-15.5) % Plt Count (150-450) k/uL ABG pO2 (83-108) mmHg ABG Total CO2 (19-24) mmol/L VBG HCO3 (24-28) mmol/L Sodium (137-145) mmol/L Carbon Dioxide (22-30) mmol/L BUN (9-20) mg/dL Creatinine (0.66-1.25) mg/dL Glucose (74-99) mg/dL POC Glucose (mg/dL) 231 H 200 H (75-99) mg/dL Plasma Lactic Acid Steven 4.5 H* (0.7-2.0) mmol/L Calcium (8.4-10.2) mg/dL AST (17-59) U/L ALT (4-49) U/L Total Protein (6.3-8.2) g/dL Albumin (3.5-5.0) g/dL 10/19/21 10/19/21 10/19/21 Range/Units 14:31 15:39 15:51 WBC (3.8-10.6) k/uL RBC (4.30-5.90) m/uL Hgb (13.0-17.5) gm/dL Hct (39.0-53.0) % RDW (11.5-15.5) % Plt Count (150-450) k/uL ABG pO2 (83-108) mmHg ABG Total CO2 (19-24) mmol/L VBG HCO3 (24-28) mmol/L Sodium (137-145) mmol/L Carbon Dioxide (22-30) mmol/L BUN (9-20) mg/dL Creatinine (0.66-1.25) mg/dL Glucose (74-99) mg/dL POC Glucose (mg/dL) 196 H 236 H (75-99) mg/dL Plasma Lactic Acid Steven 4.5 H* (0.7-2.0) mmol/L Calcium (8.4-10.2) mg/dL AST (17-59) U/L ALT (4-49) U/L Total Protein (6.3-8.2) g/dL Albumin (3.5-5.0) g/dL 10/19/21 10/19/21 10/19/21 Range/Units 16:48 18:00 18:05 WBC (3.8-10.6) k/uL RBC (4.30-5.90) m/uL Hgb (13.0-17.5) gm/dL Hct (39.0-53.0) % RDW (11.5-15.5) % Plt Count (150-450) k/uL ABG pO2 (83-108) mmHg ABG Total CO2 (19-24) mmol/L VBG HCO3 23 L (24-28) mmol/L Sodium 136 L (137-145) mmol/L Carbon Dioxide 20 L (22-30) mmol/L BUN 38 H (9-20) mg/dL Creatinine 6.31 H (0.66-1.25) mg/dL Glucose 223 H (74-99) mg/dL POC Glucose (mg/dL) 248 H (75-99) mg/dL Plasma Lactic Acid Steven (0.7-2.0) mmol/L Calcium 7.4 L (8.4-10.2) mg/dL AST 296 H (17-59) U/L ALT 65 H (4-49) U/L Total Protein 5.6 L (6.3-8.2) g/dL Albumin 2.9 L (3.5-5.0) g/dL 10/19/21 10/19/21 10/19/21 Range/Units 18:07 18:46 19:11 WBC (3.8-10.6) k/uL RBC (4.30-5.90) m/uL Hgb (13.0-17.5) gm/dL Hct (39.0-53.0) % RDW (11.5-15.5) % Plt Count (150-450) k/uL ABG pO2 (83-108) mmHg ABG Total CO2 (19-24) mmol/L VBG HCO3 (24-28) mmol/L Sodium (137-145) mmol/L Carbon Dioxide (22-30) mmol/L BUN (9-20) mg/dL Creatinine (0.66-1.25) mg/dL Glucose (74-99) mg/dL POC Glucose (mg/dL) 238 H 224 H (75-99) mg/dL Plasma Lactic Acid Steven 6.2 H* (0.7-2.0) mmol/L Calcium (8.4-10.2) mg/dL AST (17-59) U/L ALT (4-49) U/L Total Protein (6.3-8.2) g/dL Albumin (3.5-5.0) g/dL 10/19/21 10/19/21 10/19/21 Range/Units 20:19 21:21 21:52 WBC (3.8-10.6) k/uL RBC (4.30-5.90) m/uL Hgb (13.0-17.5) gm/dL Hct (39.0-53.0) % RDW (11.5-15.5) % Plt Count (150-450) k/uL ABG pO2 (83-108) mmHg ABG Total CO2 (19-24) mmol/L VBG HCO3 (24-28) mmol/L Sodium (137-145) mmol/L Carbon Dioxide (22-30) mmol/L BUN (9-20) mg/dL Creatinine (0.66-1.25) mg/dL Glucose (74-99) mg/dL POC Glucose (mg/dL) 177 H 197 H 205 H (75-99) mg/dL Plasma Lactic Acid Steven (0.7-2.0) mmol/L Calcium (8.4-10.2) mg/dL AST (17-59) U/L ALT (4-49) U/L Total Protein (6.3-8.2) g/dL Albumin (3.5-5.0) g/dL 10/19/21 10/19/21 10/20/21 Range/Units 21:55 23:12 00:35 WBC (3.8-10.6) k/uL RBC (4.30-5.90) m/uL Hgb (13.0-17.5) gm/dL Hct (39.0-53.0) % RDW (11.5-15.5) % Plt Count (150-450) k/uL ABG pO2 (83-108) mmHg ABG Total CO2 (19-24) mmol/L VBG HCO3 (24-28) mmol/L Sodium (137-145) mmol/L Carbon Dioxide (22-30) mmol/L BUN (9-20) mg/dL Creatinine (0.66-1.25) mg/dL Glucose (74-99) mg/dL POC Glucose (mg/dL) 177 H 220 H (75-99) mg/dL Plasma Lactic Acid Steven 5.9 H* (0.7-2.0) mmol/L Calcium (8.4-10.2) mg/dL AST (17-59) U/L ALT (4-49) U/L Total Protein (6.3-8.2) g/dL Albumin (3.5-5.0) g/dL 10/20/21 10/20/21 10/20/21 Range/Units 02:10 03:56 04:25 WBC (3.8-10.6) k/uL RBC (4.30-5.90) m/uL Hgb (13.0-17.5) gm/dL Hct (39.0-53.0) % RDW (11.5-15.5) % Plt Count (150-450) k/uL ABG pO2 (83-108) mmHg ABG Total CO2 (19-24) mmol/L VBG HCO3 (24-28) mmol/L Sodium 136 L (137-145) mmol/L Carbon Dioxide 21 L (22-30) mmol/L BUN 47 H (9-20) mg/dL Creatinine 6.95 H (0.66-1.25) mg/dL Glucose 187 H (74-99) mg/dL POC Glucose (mg/dL) 231 H 203 H (75-99) mg/dL Plasma Lactic Acid Steven (0.7-2.0) mmol/L Calcium 7.4 L (8.4-10.2) mg/dL AST 550 H (17-59) U/L ALT 136 H (4-49) U/L Total Protein 5.4 L (6.3-8.2) g/dL Albumin 2.8 L (3.5-5.0) g/dL 10/20/21 10/20/21 10/20/21 Range/Units 04:25 04:25 05:06 WBC 25.6 H (3.8-10.6) k/uL RBC 2.51 L (4.30-5.90) m/uL Hgb 8.0 L (13.0-17.5) gm/dL Hct 24.5 L (39.0-53.0) % RDW 17.9 H (11.5-15.5) % Plt Count 78 L (150-450) k/uL ABG pO2 (83-108) mmHg ABG Total CO2 (19-24) mmol/L VBG HCO3 (24-28) mmol/L Sodium (137-145) mmol/L Carbon Dioxide (22-30) mmol/L BUN (9-20) mg/dL Creatinine (0.66-1.25) mg/dL Glucose (74-99) mg/dL POC Glucose (mg/dL) 205 H (75-99) mg/dL Plasma Lactic Acid Steven 3.6 H* (0.7-2.0) mmol/L Calcium (8.4-10.2) mg/dL AST (17-59) U/L ALT (4-49) U/L Total Protein (6.3-8.2) g/dL Albumin (3.5-5.0) g/dL 10/20/21 10/20/21 10/20/21 Range/Units 05:50 06:00 06:43 WBC (3.8-10.6) k/uL RBC (4.30-5.90) m/uL Hgb (13.0-17.5) gm/dL Hct (39.0-53.0) % RDW (11.5-15.5) % Plt Count (150-450) k/uL ABG pO2 73 L (83-108) mmHg ABG Total CO2 26 H (19-24) mmol/L VBG HCO3 (24-28) mmol/L Sodium (137-145) mmol/L Carbon Dioxide (22-30) mmol/L BUN (9-20) mg/dL Creatinine (0.66-1.25) mg/dL Glucose (74-99) mg/dL POC Glucose (mg/dL) 194 H 179 H (75-99) mg/dL Plasma Lactic Acid Steven (0.7-2.0) mmol/L Calcium (8.4-10.2) mg/dL AST (17-59) U/L ALT (4-49) U/L Total Protein (6.3-8.2) g/dL Albumin (3.5-5.0) g/dL 10/20/21 10/20/21 Range/Units 07:49 08:13 WBC (3.8-10.6) k/uL RBC (4.30-5.90) m/uL Hgb (13.0-17.5) gm/dL Hct (39.0-53.0) % RDW (11.5-15.5) % Plt Count (150-450) k/uL ABG pO2 (83-108) mmHg ABG Total CO2 (19-24) mmol/L VBG HCO3 (24-28) mmol/L Sodium (137-145) mmol/L Carbon Dioxide (22-30) mmol/L BUN (9-20) mg/dL Creatinine (0.66-1.25) mg/dL Glucose (74-99) mg/dL POC Glucose (mg/dL) 168 H 167 H (75-99) mg/dL Plasma Lactic Acid Steven (0.7-2.0) mmol/L Calcium (8.4-10.2) mg/dL AST (17-59) U/L ALT (4-49) U/L Total Protein (6.3-8.2) g/dL Albumin (3.5-5.0) g/dL Microbiology - Last 24 Hours (Table) 10/18/21 08:27 Blood Culture Gram Stain - Preliminary Blood Blood Culture - Preliminary Staphylococcus aureus 10/18/21 08:10 Blood Culture Gram Stain - Preliminary Blood Blood Culture - Preliminary Staphylococcus aureus 10/18/21 22:28 Gram Stain - Preliminary Sputum Sputum Culture - Preliminary
--- NOTE | 2021-10-20 09:09 | P.PN ---
Subjective Patient is seen in follow-up for end-stage renal disease. He is maintained on hemodialysis on Friday schedule. Underwent hemodialysis yesterday. Currently on Levophed and vasopressin. Intubated. Vital signs - on vasopressor support. HEENT: Intubated. LUNGS: Breath sounds decreased. HEART: Rate and Rhythm are regular. ABDOMEN: Soft, obese. EXTREMITITES: Right BKA. No drainage noted from the femoral catheter. Objective - Vital Signs Vital signs: Vital Signs Temp 98.2 F 10/20/21 08:00 Pulse 87 10/20/21 08:00 Resp 30 H 10/20/21 08:00 BP 147/83 10/20/21 04:30 Pulse Ox 93 L 10/20/21 08:00 Intake & Output 10/19/21 10/20/21 10/20/21 18:59 06:59 18:59 Intake Total 280.804 528.062 20 Output Total 0 132 Balance 280.804 396.062 20 Weight 106.8 kg Intake: IV 20 250 20 .9 kvo 180 20 Cefepime 1 gm In Sodium 50 Chloride 0.9% 50 ml @ 12. 5 mls/hr IVPB Q12HR [facility] Rx#:[id number] Sodium Chloride 0.9% 1, 20 20 000 ml @ 75 mls/hr IV . [id number] [facility] Rx#:[id number] Intake, IV Titration 260.804 278.062 Amount Insulin Regular 100 unit 26.966 58.227 In Sodium Chloride 0.9% 100 ml @ Per Protocol IV .Q0M [facility] Rx#:[id number] Norepinephrine 32 mg In 33.838 19.835 Sodium Chloride 0.9% 218 ml @ 0.05 MCG/KG/MIN 1. 318 mls/hr IV .Q24H [facility] Rx#:[id number] Norepinephrine 4 mg In 0 Sodium Chloride 0.9% 250 ml @ 0.05 MCG/KG/MIN 10. 715 mls/hr IV .[id number] [facility] [place] Rx#:[id number] propofoL 1,000 mg In 200.00 200 Empty Bag 1 bag @ Titrate IV .Q0M [facility] Rx#: [id number] Output: Urine 0 132 Hemodialysis 0 Other: Voiding Method Indwelling Catheter Indwelling Catheter ABP, PAP, CO, CI - Last Documented Arterial Blood Pressure 112/72 - Labs CBC & Chem 7: 10/20/21 04:25 10/20/21 04:25 Labs: Abnormal Lab Results - Last 24 Hours (Table) 10/19/21 10/19/21 10/19/21 Range/Units 09:01 09:45 11:38 WBC (3.8-10.6) k/uL RBC (4.30-5.90) m/uL Hgb (13.0-17.5) gm/dL Hct (39.0-53.0) % RDW (11.5-15.5) % Plt Count (150-450) k/uL ABG pO2 (83-108) mmHg ABG Total CO2 (19-24) mmol/L VBG HCO3 (24-28) mmol/L Sodium (137-145) mmol/L Carbon Dioxide (22-30) mmol/L BUN (9-20) mg/dL Creatinine (0.66-1.25) mg/dL Glucose (74-99) mg/dL POC Glucose (mg/dL) 515 H 253 H (75-99) mg/dL Plasma Lactic Acid Steven 5.4 H* (0.7-2.0) mmol/L Calcium (8.4-10.2) mg/dL AST (17-59) U/L ALT (4-49) U/L Total Protein (6.3-8.2) g/dL Albumin (3.5-5.0) g/dL 10/19/21 10/19/21 10/19/21 Range/Units 12:28 12:30 13:34 WBC (3.8-10.6) k/uL RBC (4.30-5.90) m/uL Hgb (13.0-17.5) gm/dL Hct (39.0-53.0) % RDW (11.5-15.5) % Plt Count (150-450) k/uL ABG pO2 (83-108) mmHg ABG Total CO2 (19-24) mmol/L VBG HCO3 (24-28) mmol/L Sodium (137-145) mmol/L Carbon Dioxide (22-30) mmol/L BUN (9-20) mg/dL Creatinine (0.66-1.25) mg/dL Glucose (74-99) mg/dL POC Glucose (mg/dL) 231 H 200 H (75-99) mg/dL Plasma Lactic Acid Steven 4.5 H* (0.7-2.0) mmol/L Calcium (8.4-10.2) mg/dL AST (17-59) U/L ALT (4-49) U/L Total Protein (6.3-8.2) g/dL Albumin (3.5-5.0) g/dL 10/19/21 10/19/21 10/19/21 Range/Units 14:31 15:39 15:51 WBC (3.8-10.6) k/uL RBC (4.30-5.90) m/uL Hgb (13.0-17.5) gm/dL Hct (39.0-53.0) % RDW (11.5-15.5) % Plt Count (150-450) k/uL ABG pO2 (83-108) mmHg ABG Total CO2 (19-24) mmol/L VBG HCO3 (24-28) mmol/L Sodium (137-145) mmol/L Carbon Dioxide (22-30) mmol/L BUN (9-20) mg/dL Creatinine (0.66-1.25) mg/dL Glucose (74-99) mg/dL POC Glucose (mg/dL) 196 H 236 H (75-99) mg/dL Plasma Lactic Acid Steven 4.5 H* (0.7-2.0) mmol/L Calcium (8.4-10.2) mg/dL AST (17-59) U/L ALT (4-49) U/L Total Protein (6.3-8.2) g/dL Albumin (3.5-5.0) g/dL 10/19/21 10/19/21 10/19/21 Range/Units 16:48 18:00 18:05 WBC (3.8-10.6) k/uL RBC (4.30-5.90) m/uL Hgb (13.0-17.5) gm/dL Hct (39.0-53.0) % RDW (11.5-15.5) % Plt Count (150-450) k/uL ABG pO2 (83-108) mmHg ABG Total CO2 (19-24) mmol/L VBG HCO3 23 L (24-28) mmol/L Sodium 136 L (137-145) mmol/L Carbon Dioxide 20 L (22-30) mmol/L BUN 38 H (9-20) mg/dL Creatinine 6.31 H (0.66-1.25) mg/dL Glucose 223 H (74-99) mg/dL POC Glucose (mg/dL) 248 H (75-99) mg/dL Plasma Lactic Acid Steven (0.7-2.0) mmol/L Calcium 7.4 L (8.4-10.2) mg/dL AST 296 H (17-59) U/L ALT 65 H (4-49) U/L Total Protein 5.6 L (6.3-8.2) g/dL Albumin 2.9 L (3.5-5.0) g/dL 10/19/21 10/19/21 10/19/21 Range/Units 18:07 18:46 19:11 WBC (3.8-10.6) k/uL RBC (4.30-5.90) m/uL Hgb (13.0-17.5) gm/dL Hct (39.0-53.0) % RDW (11.5-15.5) % Plt Count (150-450) k/uL ABG pO2 (83-108) mmHg ABG Total CO2 (19-24) mmol/L VBG HCO3 (24-28) mmol/L Sodium (137-145) mmol/L Carbon Dioxide (22-30) mmol/L BUN (9-20) mg/dL Creatinine (0.66-1.25) mg/dL Glucose (74-99) mg/dL POC Glucose (mg/dL) 238 H 224 H (75-99) mg/dL Plasma Lactic Acid Steven 6.2 H* (0.7-2.0) mmol/L Calcium (8.4-10.2) mg/dL AST (17-59) U/L ALT (4-49) U/L Total Protein (6.3-8.2) g/dL Albumin (3.5-5.0) g/dL 10/19/21 10/19/21 10/19/21 Range/Units 20:19 21:21 21:52 WBC (3.8-10.6) k/uL RBC (4.30-5.90) m/uL Hgb (13.0-17.5) gm/dL Hct (39.0-53.0) % RDW (11.5-15.5) % Plt Count (150-450) k/uL ABG pO2 (83-108) mmHg ABG Total CO2 (19-24) mmol/L VBG HCO3 (24-28) mmol/L Sodium (137-145) mmol/L Carbon Dioxide (22-30) mmol/L BUN (9-20) mg/dL Creatinine (0.66-1.25) mg/dL Glucose (74-99) mg/dL POC Glucose (mg/dL) 177 H 197 H 205 H (75-99) mg/dL Plasma Lactic Acid Steven (0.7-2.0) mmol/L Calcium (8.4-10.2) mg/dL AST (17-59) U/L ALT (4-49) U/L Total Protein (6.3-8.2) g/dL Albumin (3.5-5.0) g/dL 10/19/21 10/19/21 10/20/21 Range/Units 21:55 23:12 00:35 WBC (3.8-10.6) k/uL RBC (4.30-5.90) m/uL Hgb (13.0-17.5) gm/dL Hct (39.0-53.0) % RDW (11.5-15.5) % Plt Count (150-450) k/uL ABG pO2 (83-108) mmHg ABG Total CO2 (19-24) mmol/L VBG HCO3 (24-28) mmol/L Sodium (137-145) mmol/L Carbon Dioxide (22-30) mmol/L BUN (9-20) mg/dL Creatinine (0.66-1.25) mg/dL Glucose (74-99) mg/dL POC Glucose (mg/dL) 177 H 220 H (75-99) mg/dL Plasma Lactic Acid Steven 5.9 H* (0.7-2.0) mmol/L Calcium (8.4-10.2) mg/dL AST (17-59) U/L ALT (4-49) U/L Total Protein (6.3-8.2) g/dL Albumin (3.5-5.0) g/dL 10/20/21 10/20/21 10/20/21 Range/Units 02:10 03:56 04:25 WBC (3.8-10.6) k/uL RBC (4.30-5.90) m/uL Hgb (13.0-17.5) gm/dL Hct (39.0-53.0) % RDW (11.5-15.5) % Plt Count (150-450) k/uL ABG pO2 (83-108) mmHg ABG Total CO2 (19-24) mmol/L VBG HCO3 (24-28) mmol/L Sodium 136 L (137-145) mmol/L Carbon Dioxide 21 L (22-30) mmol/L BUN 47 H (9-20) mg/dL Creatinine 6.95 H (0.66-1.25) mg/dL Glucose 187 H (74-99) mg/dL POC Glucose (mg/dL) 231 H 203 H (75-99) mg/dL Plasma Lactic Acid Steven (0.7-2.0) mmol/L Calcium 7.4 L (8.4-10.2) mg/dL AST 550 H (17-59) U/L ALT 136 H (4-49) U/L Total Protein 5.4 L (6.3-8.2) g/dL Albumin 2.8 L (3.5-5.0) g/dL 10/20/21 10/20/21 10/20/21 Range/Units 04:25 04:25 05:06 WBC 25.6 H (3.8-10.6) k/uL RBC 2.51 L (4.30-5.90) m/uL Hgb 8.0 L (13.0-17.5) gm/dL Hct 24.5 L (39.0-53.0) % RDW 17.9 H (11.5-15.5) % Plt Count 78 L (150-450) k/uL ABG pO2 (83-108) mmHg ABG Total CO2 (19-24) mmol/L VBG HCO3 (24-28) mmol/L Sodium (137-145) mmol/L Carbon Dioxide (22-30) mmol/L BUN (9-20) mg/dL Creatinine (0.66-1.25) mg/dL Glucose (74-99) mg/dL POC Glucose (mg/dL) 205 H (75-99) mg/dL Plasma Lactic Acid Steven 3.6 H* (0.7-2.0) mmol/L Calcium (8.4-10.2) mg/dL AST (17-59) U/L ALT (4-49) U/L Total Protein (6.3-8.2) g/dL Albumin (3.5-5.0) g/dL 10/20/21 10/20/21 10/20/21 Range/Units 05:50 06:00 06:43 WBC (3.8-10.6) k/uL RBC (4.30-5.90) m/uL Hgb (13.0-17.5) gm/dL Hct (39.0-53.0) % RDW (11.5-15.5) % Plt Count (150-450) k/uL ABG pO2 73 L (83-108) mmHg ABG Total CO2 26 H (19-24) mmol/L VBG HCO3 (24-28) mmol/L Sodium (137-145) mmol/L Carbon Dioxide (22-30) mmol/L BUN (9-20) mg/dL Creatinine (0.66-1.25) mg/dL Glucose (74-99) mg/dL POC Glucose (mg/dL) 194 H 179 H (75-99) mg/dL Plasma Lactic Acid Steven (0.7-2.0) mmol/L Calcium (8.4-10.2) mg/dL AST (17-59) U/L ALT (4-49) U/L Total Protein (6.3-8.2) g/dL Albumin (3.5-5.0) g/dL 10/20/21 10/20/21 Range/Units 07:49 08:13 WBC (3.8-10.6) k/uL RBC (4.30-5.90) m/uL Hgb (13.0-17.5) gm/dL Hct (39.0-53.0) % RDW (11.5-15.5) % Plt Count (150-450) k/uL ABG pO2 (83-108) mmHg ABG Total CO2 (19-24) mmol/L VBG HCO3 (24-28) mmol/L Sodium (137-145) mmol/L Carbon Dioxide (22-30) mmol/L BUN (9-20) mg/dL Creatinine (0.66-1.25) mg/dL Glucose (74-99) mg/dL POC Glucose (mg/dL) 168 H 167 H (75-99) mg/dL Plasma Lactic Acid Steven (0.7-2.0) mmol/L Calcium (8.4-10.2) mg/dL AST (17-59) U/L ALT (4-49) U/L Total Protein (6.3-8.2) g/dL Albumin (3.5-5.0) g/dL Microbiology - Last 24 Hours (Table) 10/18/21 08:27 Blood Culture Gram Stain - Preliminary Blood Blood Culture - Preliminary Staphylococcus aureus 10/18/21 08:10 Blood Culture Gram Stain - Preliminary Blood Blood Culture - Preliminary Staphylococcus aureus 10/18/21 22:28 Gram Stain - Preliminary Sputum Sputum Culture - Preliminary Assessment and Plan Plan: Assessment: 1. End-stage renal disease maintained on hemodialysis on Friday schedule via right femoral permacath. 2. Septic shock secondary to staph bacteremia. Possible source permacath versus pneumonia. Also has a nonfunctioning hero graft. 3. Metabolic acidosis secondary to chronic kidney disease and lactic acidosis. 4. Hyperkalemia secondary to chronic kidney disease. Improved postdialysis. 5. Diabetes mellitus. 6. Anemia of chronic kidney disease. Plan: Hemodialysis tomorrow. Wean FiO2 and vasopressors. Follow-up cultures. Check cultures from the permacath. Infectious disease following. Add Aranesp. Case discussed with ICU team.
[2021-10-20 09:26] LABS: Glucose,Whole Blood 168 mg/dL (75-99)
[2021-10-20] MEDS: SODIUM CHLORIDE 0.9% 1,000 ML IV SCH ×2 (09:40→19:58)
[2021-10-20] MEDS: PANTOPRAZOLE 40 MG TABLET PO SCH (09:48)
[2021-10-20] MEDS: CHLORHEXIDINE GLUCONATE 15 ML CUP MUCOUS MEM SCH ×2 (09:48→22:00)
[2021-10-20] MEDS: MIDODRINE 5 MG TAB PO SCH ×3 (09:48→22:00)
[2021-10-20] MEDS: APIXABAN 2.5 MG TABLET PO SCH ×2 (09:48→22:00)
[2021-10-20] MEDS: ASPIRIN 81 MG PO SCH (09:48)
[2021-10-20] MEDS ORDERED: VANCOMYCIN IV PER PHARMACY 1 EACH MISC MISCELLANE PRN (09:51)
[2021-10-20] MEDS ORDERED: DARBEPOETIN ALFA 40 MCG/0.4 ML SYRINGE SQ SCH (10:00)
[2021-10-20] MEDS: INSULIN DETEMIR (LEVEMIR) 100 UNIT/ML SYR SQ SCH ×2 (10:33→22:01)
--- NOTE | 2021-10-20 10:44 | ECHOF ---
Referral Reason:re: LV function, rule out endocarditis MEASUREMENTS -------- HEIGHT: 152.4 cm WEIGHT: 99.8 kg BP: 58/30 RVIDd: 4.6 cm (< 3.3) IVSd: 1.3 cm (0.6 - 1.1) LVIDd: 3.6 cm (3.9 - 5.3) LVPWd: 1.1 cm (0.6 - 1.1) IVSs: 1.2 cm LVIDs: 2.9 cm LVPWs: 1.5 cm MV E Prosper: 0.95 m/s MV DecT: 211 ms MV A Prosper: 0.86 m/s MV E/A Ratio: 1.11 RAP: 5.00 mmHg RVSP: 58.66 mmHg FINDINGS -------- Sinus rhythm. This was a technically difficult study with suboptimal views. Pt. on a vent. The left ventricular size is normal. There is mild concentric left ventricular hypertrophy. Overa ll left ventricular systolic function is mild-moderately impaired with, an EF between 40 - 45 %. The right ventricle is severely enlarged. The left atrium was not well visualized. The right atrium was not well visualized. Lumason used Interatrial and interventricular septum intact. There is no evidence of aortic regurgitation. There is no evidence of aortic stenosis. Mild mitral regurgitation is present. Moderate to severe tricuspid regurgitation present. There is moderate to severe pulmonary hypertens ion. The right ventricular systolic pressure, as measured by Doppler, is 58.66mmHg. The pulmonic valve was not well visualized. The aortic root size is normal. IVC Not well visulized. There is no pericardial effusion. CONCLUSIONS -------- 1. The left ventricular size is normal. 2. There is mild concentric left ventricular hypertrophy. 3. Overall left ventricular systolic function is mild-moderately impaired with, an EF between 40 - 45 %. 4. The right ventricle is severely enlarged. 5. Mild mitral regurgitation is present. 6. Moderate to severe tricuspid regurgitation present. 7. There is moderate to severe pulmonary hypertension. 8. The right ventricular systolic pressure, as measured by Doppler, is 58.66mmHg. DYE BOX OPERATOR: Catie Dwyer, [facility]
--- NOTE | 2021-10-20 11:12 | P.PN ---
Subjective Progress Note Date: 10/20/21 Patient is intubated and on pressors Patient is a 46-year-old male with known end-stage renal disease on hemodialysis currently out of facility on Friday//Friday, diabetes mellitus on insulin pump with neuropathy and history of right AKA he has been struggling with recurrent MSSA bacteremia associated HD line infections. He was recently discharged on 08/23 after her hospital stay where his hemodialysis catheter was changed out and a dialysis catheter was placed into his right groin. On that time he was completing IV rifampin as well as 6 weeks of IV cefazolin. During that hospital stay he underwent CT chestabdomen/pelvis which showed no additional sources of bacteremia, he also underwent a tagged white blood cell scan which was negative. He did undergo a transesophageal ec hocardiogram on 10/05 without signs of endocarditis. He presented to the ED via EMS for altered mentation. He was found to be hypotensive despite 500cc bolus. He was started on levophed. CTA chest with smaller thrombus then before. He was started on vanco and levaquin. COVID testing was negative. Blood cultures were obtained. Due to chronic thrombus and multiple veins we had to initiate levo through his hemodialysis catheter. There were unable to obtain an arterial line. He had a cardiac arrest with asystole and was given 1 round of epinephrine area and he was subsequently intubated. After the code his laboratory analysis was significantly different than prior showing hyperkalemia, white blood cell count of 38, and severe lactic acidosis. Lactic acidosis did not respond to IV fluids. He was started on a dextrose and sodium bicarbonate drip which resulted in hyperglycemia. Patient seen and examined at bedside. He is sedated. Events from overnight listed above. General: ill appearing, moderate distress, appears at stated age Derm: warm, dry Head: atraumatic, normocephalic, symmetric Eyes: EOMI, no lid lag, anicteric sclera Mouth: no lip lesion, mucus membranes moist Cardiovascular: S1S2 reg, no murmur, positive radial pulses bilaterally Lungs: Course bilateral, no rhonchi, no rales , no accessory muscle use, on vent Abdominal: soft, nontender to palpation, no guarding, no appreciable organomegaly, Pereira catheter in place with small amounts of hematuria Ext: no gross muscle atrophy, no edema, no contractures, right BKA Neuro: Sedated on vent Psych: Sedated on vent Assessment/plan: Gram-positive bacteremia, suspect MSSA Septic shock Lactic acidosis Acute hypoxic respiratory failure Asystole arrest with Rosc Acute encephalopathy, metabolic and secondary to infection line-await infectious disease recommendations - completed cefazolin 9 days prior to admission -Continue with Vanco and cefepime -IV fluids -Repeat blood cultures in a.m. -Vent management per pulmonary -Wean the Levophed and vasopressin as able -Poor overall prognosis - awati echo End-stage renal disease on hemodialysis-T//Fri Anemia of chronic renal disease Hyperkalemia Metabolic acidosis - HD today if BP tolerated - Nephrology recs - off bicarb gtt with HD Diabetes mellitus type 2 Maintained on insulin pump as an outpatient -Transition to insulin drip from short and long-acting -Accu-Cheks every hour -Hopefully improving glycemic control will improve his acidosis and hyperkalemia -Hemoglobin A1c 7.2 on 08/16/21 Elevated troponin -Likely reflective of end-stage renal disease -Cardiology recommendations appreciated Thromobocytopenia - likely reactive - follow CBC Chronic Pulmonary Embolsim with hx of Massive pulmonary embolism treated with EKOS 7 months ago - Eliquis GERD - PPI Dyslipidemia - not chronically on meds Seizure disorder Anemia of chronic renal disease Patient intubated on pressors management by ICU team Son updated over phone and aware of poor overall prognosis. DVT prophylaxis: reid Discussed with: patient, nursing, son, Dr. Celeste Anticipated discharge date: undetermined Anticipated discharge place: undetermined Objective - Vital Signs Vital signs: Vital Signs Temp 98.2 F 10/20/21 08:00 Pulse 92 10/20/21 10:00 Resp 30 H 10/20/21 10:00 BP 147/83 10/20/21 04:30 Pulse Ox 92 L 10/20/21 10:00 Intake & Output 10/19/21 10/20/21 10/20/21 18:59 06:59 18:59 Intake Total 280.804 528.062 313.672 Output Total 0 132 Balance 280.804 396.062 313.672 Weight 106.8 kg 106.8 kg Intake: IV 20 250 60 .9 kvo 180 60 Cefepime 1 gm In Sodium 50 Chloride 0.9% 50 ml @ 12. 5 mls/hr IVPB Q12HR [facility] Rx#:[id number] Sodium Chloride 0.9% 1, 20 20 000 ml @ 75 mls/hr IV . [id number] [facility] Rx#:[id number] Intake, IV Titration 260.804 278.062 253.672 Amount Insulin Regular 100 unit 26.966 58.227 In Sodium Chloride 0.9% 100 ml @ Per Protocol IV .Q0M [facility] Rx#:[id number] Norepinephrine 32 mg In 33.838 19.835 Sodium Chloride 0.9% 218 ml @ 0.05 MCG/KG/MIN 1. 318 mls/hr IV .Q24H [facility] Rx#:[id number] Norepinephrine 4 mg In 0 198.677 Sodium Chloride 0.9% 250 ml @ 0.05 MCG/KG/MIN 10. 715 mls/hr IV .[id number] [facility] Rx#:[id number] propofoL 1,000 mg In 200.00 200 54.995 Empty Bag 1 bag @ Titrate IV .Q0M [facility] Rx#: [id number] Output: Urine 0 132 Hemodialysis 0 Other: Voiding Method Indwelling Catheter Indwelling Catheter ABP, PAP, CO, CI - Last Documented Arterial Blood Pressure 112/82 - Labs CBC & Chem 7: 10/20/21 04:25 10/20/21 04:25 Labs: Abnormal Lab Results - Last 24 Hours (Table) 10/19/21 10/19/21 10/19/21 Range/Units 11:38 12:28 12:30 WBC (3.8-10.6) k/uL RBC (4.30-5.90) m/uL Hgb (13.0-17.5) gm/dL Hct (39.0-53.0) % RDW (11.5-15.5) % Plt Count (150-450) k/uL ABG pO2 (83-108) mmHg ABG Total CO2 (19-24) mmol/L VBG HCO3 (24-28) mmol/L Sodium (137-145) mmol/L Carbon Dioxide (22-30) mmol/L BUN (9-20) mg/dL Creatinine (0.66-1.25) mg/dL Glucose (74-99) mg/dL POC Glucose (mg/dL) 253 H 231 H (75-99) mg/dL Plasma Lactic Acid Steven 4.5 H* (0.7-2.0) mmol/L Calcium (8.4-10.2) mg/dL AST (17-59) U/L ALT (4-49) U/L Total Protein (6.3-8.2) g/dL Albumin (3.5-5.0) g/dL 10/19/21 10/19/21 10/19/21 Range/Units 13:34 14:31 15:39 WBC (3.8-10.6) k/uL RBC (4.30-5.90) m/uL Hgb (13.0-17.5) gm/dL Hct (39.0-53.0) % RDW (11.5-15.5) % Plt Count (150-450) k/uL ABG pO2 (83-108) mmHg ABG Total CO2 (19-24) mmol/L VBG HCO3 (24-28) mmol/L Sodium (137-145) mmol/L Carbon Dioxide (22-30) mmol/L BUN (9-20) mg/dL Creatinine (0.66-1.25) mg/dL Glucose (74-99) mg/dL POC Glucose (mg/dL) 200 H 196 H 236 H (75-99) mg/dL Plasma Lactic Acid Steven (0.7-2.0) mmol/L Calcium (8.4-10.2) mg/dL AST (17-59) U/L ALT (4-49) U/L Total Protein (6.3-8.2) g/dL Albumin (3.5-5.0) g/dL 10/19/21 10/19/21 10/19/21 Range/Units 15:51 16:48 18:00 WBC (3.8-10.6) k/uL RBC (4.30-5.90) m/uL Hgb (13.0-17.5) gm/dL Hct (39.0-53.0) % RDW (11.5-15.5) % Plt Count (150-450) k/uL ABG pO2 (83-108) mmHg ABG Total CO2 (19-24) mmol/L VBG HCO3 (24-28) mmol/L Sodium 136 L (137-145) mmol/L Carbon Dioxide 20 L (22-30) mmol/L BUN 38 H (9-20) mg/dL Creatinine 6.31 H (0.66-1.25) mg/dL Glucose 223 H (74-99) mg/dL POC Glucose (mg/dL) 248 H (75-99) mg/dL Plasma Lactic Acid Steven 4.5 H* (0.7-2.0) mmol/L Calcium 7.4 L (8.4-10.2) mg/dL AST 296 H (17-59) U/L ALT 65 H (4-49) U/L Total Protein 5.6 L (6.3-8.2) g/dL Albumin 2.9 L (3.5-5.0) g/dL 10/19/21 10/19/21 10/19/21 Range/Units 18:05 18:07 18:46 WBC (3.8-10.6) k/uL RBC (4.30-5.90) m/uL Hgb (13.0-17.5) gm/dL Hct (39.0-53.0) % RDW (11.5-15.5) % Plt Count (150-450) k/uL ABG pO2 (83-108) mmHg ABG Total CO2 (19-24) mmol/L VBG HCO3 23 L (24-28) mmol/L Sodium (137-145) mmol/L Carbon Dioxide (22-30) mmol/L BUN (9-20) mg/dL Creatinine (0.66-1.25) mg/dL Glucose (74-99) mg/dL POC Glucose (mg/dL) 238 H (75-99) mg/dL Plasma Lactic Acid Steven 6.2 H* (0.7-2.0) mmol/L Calcium (8.4-10.2) mg/dL AST (17-59) U/L ALT (4-49) U/L Total Protein (6.3-8.2) g/dL Albumin (3.5-5.0) g/dL 10/19/21 10/19/21 10/19/21 Range/Units 19:11 20:19 21:21 WBC (3.8-10.6) k/uL RBC (4.30-5.90) m/uL Hgb (13.0-17.5) gm/dL Hct (39.0-53.0) % RDW (11.5-15.5) % Plt Count (150-450) k/uL ABG pO2 (83-108) mmHg ABG Total CO2 (19-24) mmol/L VBG HCO3 (24-28) mmol/L Sodium (137-145) mmol/L Carbon Dioxide (22-30) mmol/L BUN (9-20) mg/dL Creatinine (0.66-1.25) mg/dL Glucose (74-99) mg/dL POC Glucose (mg/dL) 224 H 177 H 197 H (75-99) mg/dL Plasma Lactic Acid Steven (0.7-2.0) mmol/L Calcium (8.4-10.2) mg/dL AST (17-59) U/L ALT (4-49) U/L Total Protein (6.3-8.2) g/dL Albumin (3.5-5.0) g/dL 10/19/21 10/19/21 10/19/21 Range/Units 21:52 21:55 23:12 WBC (3.8-10.6) k/uL RBC (4.30-5.90) m/uL Hgb (13.0-17.5) gm/dL Hct (39.0-53.0) % RDW (11.5-15.5) % Plt Count (150-450) k/uL ABG pO2 (83-108) mmHg ABG Total CO2 (19-24) mmol/L VBG HCO3 (24-28) mmol/L Sodium (137-145) mmol/L Carbon Dioxide (22-30) mmol/L BUN (9-20) mg/dL Creatinine (0.66-1.25) mg/dL Glucose (74-99) mg/dL POC Glucose (mg/dL) 205 H 177 H (75-99) mg/dL Plasma Lactic Acid Steven 5.9 H* (0.7-2.0) mmol/L Calcium (8.4-10.2) mg/dL AST (17-59) U/L ALT (4-49) U/L Total Protein (6.3-8.2) g/dL Albumin (3.5-5.0) g/dL 0110/20/21 10/20/21 Range/Units 00:35 02:10 03:56 WBC (3.8-10.6) k/uL RBC (4.30-5.90) m/uL Hgb (13.0-17.5) gm/dL Hct (39.0-53.0) % RDW (11.5-15.5) % Plt Count (150-450) k/uL ABG pO2 (83-108) mmHg ABG Total CO2 (19-24) mmol/L VBG HCO3 (24-28) mmol/L Sodium (137-145) mmol/L Carbon Dioxide (22-30) mmol/L BUN (9-20) mg/dL Creatinine (0.66-1.25) mg/dL Glucose (74-99) mg/dL POC Glucose (mg/dL) 220 H 231 H 203 H (75-99) mg/dL Plasma Lactic Acid Steven (0.7-2.0) mmol/L Calcium (8.4-10.2) mg/dL AST (17-59) U/L ALT (4-49) U/L Total Protein (6.3-8.2) g/dL Albumin (3.5-5.0) g/dL 10/20/21 10/20/21 10/20/21 Range/Units 04:25 04:25 04:25 WBC 25.6 H (3.8-10.6) k/uL RBC 2.51 L (4.30-5.90) m/uL Hgb 8.0 L (13.0-17.5) gm/dL Hct 24.5 L (39.0-53.0) % RDW 17.9 H (11.5-15.5) % Plt Count 78 L (150-450) k/uL ABG pO2 (83-108) mmHg ABG Total CO2 (19-24) mmol/L VBG HCO3 (24-28) mmol/L Sodium 136 L (137-145) mmol/L Carbon Dioxide 21 L (22-30) mmol/L BUN 47 H (9-20) mg/dL Creatinine 6.95 H (0.66-1.25) mg/dL Glucose 187 H (74-99) mg/dL POC Glucose (mg/dL) (75-99) mg/dL Plasma Lactic Acid Steven 3.6 H* (0.7-2.0) mmol/L Calcium 7.4 L (8.4-10.2) mg/dL AST 550 H (17-59) U/L ALT 136 H (4-49) U/L Total Protein 5.4 L (6.3-8.2) g/dL Albumin 2.8 L (3.5-5.0) g/dL 10/20/21 10/20/21 10/20/21 Range/Units 05:06 05:50 06:00 WBC (3.8-10.6) k/uL RBC (4.30-5.90) m/uL Hgb (13.0-17.5) gm/dL Hct (39.0-53.0) % RDW (11.5-15.5) % Plt Count (150-450) k/uL ABG pO2 73 L (83-108) mmHg ABG Total CO2 26 H (19-24) mmol/L VBG HCO3 (24-28) mmol/L Sodium (137-145) mmol/L Carbon Dioxide (22-30) mmol/L BUN (9-20) mg/dL Creatinine (0.66-1.25) mg/dL Glucose (74-99) mg/dL POC Glucose (mg/dL) 205 H 194 H (75-99) mg/dL Plasma Lactic Acid Steven (0.7-2.0) mmol/L Calcium (8.4-10.2) mg/dL AST (17-59) U/L ALT (4-49) U/L Total Protein (6.3-8.2) g/dL Albumin (3.5-5.0) g/dL 10/20/21 10/20/21 10/20/21 Range/Units 06:43 07:49 08:13 WBC (3.8-10.6) k/uL RBC (4.30-5.90) m/uL Hgb (13.0-17.5) gm/dL Hct (39.0-53.0) % RDW (11.5-15.5) % Plt Count (150-450) k/uL ABG pO2 (83-108) mmHg ABG Total CO2 (19-24) mmol/L VBG HCO3 (24-28) mmol/L Sodium (137-145) mmol/L Carbon Dioxide (22-30) mmol/L BUN (9-20) mg/dL Creatinine (0.66-1.25) mg/dL Glucose (74-99) mg/dL POC Glucose (mg/dL) 179 H 168 H 167 H (75-99) mg/dL Plasma Lactic Acid Steven (0.7-2.0) mmol/L Calcium (8.4-10.2) mg/dL AST (17-59) U/L ALT (4-49) U/L Total Protein (6.3-8.2) g/dL Albumin (3.5-5.0) g/dL 10/20/21 Range/Units 09:25 WBC (3.8-10.6) k/uL RBC (4.30-5.90) m/uL Hgb (13.0-17.5) gm/dL Hct (39.0-53.0) % RDW (11.5-15.5) % Plt Count (150-450) k/uL ABG pO2 (83-108) mmHg ABG Total CO2 (19-24) mmol/L VBG HCO3 (24-28) mmol/L Sodium (137-145) mmol/L Carbon Dioxide (22-30) mmol/L BUN (9-20) mg/dL Creatinine (0.66-1.25) mg/dL Glucose (74-99) mg/dL POC Glucose (mg/dL) 168 H (75-99) mg/dL Plasma Lactic Acid Steven (0.7-2.0) mmol/L Calcium (8.4-10.2) mg/dL AST (17-59) U/L ALT (4-49) U/L Total Protein (6.3-8.2) g/dL Albumin (3.5-5.0) g/dL Microbiology - Last 24 Hours (Table) 10/18/21 08:27 Blood Culture Gram Stain - Preliminary Blood Blood Culture - Preliminary Staphylococcus aureus 10/18/21 08:10 Blood Culture Gram Stain - Preliminary Blood Blood Culture - Preliminary Staphylococcus aureus 10/18/21 22:28 Gram Stain - Preliminary Sputum Sputum Culture - Preliminary
[2021-10-20 11:57] LABS: INR 1.3 (<1.2); Prothrombin Time 13.7 sec (9.0-12.0)
[2021-10-20] MEDS ORDERED: VANCOMYCIN 1,500 MG in SODIUM CHLORIDE 0.9% 250 ML IVPB ONE (12:00)
[2021-10-20 12:06] LABS: Glucose,Whole Blood 160 mg/dL (75-99)
[2021-10-20 14:05] LABS: Glucose,Whole Blood 226 mg/dL (75-99)
[2021-10-20] MEDS: INSULIN ASPART (NovoLOG) 100 UNIT/ML VIAL SQ SCH ×3 (14:06→22:01)
[2021-10-20 17:06] LABS: Glucose,Whole Blood 249 mg/dL (75-99)
[2021-10-20 17:43] LABS: Glucose,Whole Blood 262 mg/dL (75-99)
[2021-10-20] MEDS: NOREPINEPHRINE 4 MG in SODIUM CHLORIDE 0.9% 250 ML IV SCH (20:00)
--- NOTE | 2021-10-20 20:16 | PN ---
PROGRESS NOTE DATE OF SERVICE: 10/20/2021 REASON FOR FOLLOWUP: MSSA bacteremia and pneumonia. INTERVAL HISTORY: Patient is afebrile. The patient is hemodynamically stable requiring less pressor support. FiO2 is currently at 80%. No significant purulent secretions through the ET tube or any other changes reported by the nursing staff. PHYSICAL EXAMINATION: Blood pressure 104/63, pulse of 80, temperature 98.7. He is 96% on 80% FiO2. General description is a middle-aged male lying in bed in no distress. Respiratory system: Unlabored breathing, decreased intensity of breath sounds. No wheeze. Heart S1, S2. Regular rate and rhythm. Abdomen soft, no tenderness. LABS: Hemoglobin 8, white count of 25.6, creatinine 6.95. Blood count more than 100. IMPRESSION/PLAN: Patient with acute respiratory failure and sepsis, which is multifactorial in this patient who did have MSSA bacteremia which could be more likely related to his dialysis catheter. Underlying pneumonia not entirely excluded. We will wait for the sputum culture to finalize before adjusting antibiotic to focus towards his catheter infection. May benefit from removal of the dialysis catheter to help heal this infection. Overall prognosis remains to be guarded. MMODL / IJN: [id number] /
[2021-10-20 20:36] LABS: Glucose,Whole Blood 261 mg/dL (75-99)
[2021-10-20] MEDS: CEFEPIME 1 GM in SODIUM CHLORIDE 0.9% 50 ML IVPB SCH (22:00)
[2021-10-20 23:57] LABS: Glucose,Whole Blood 272 mg/dL (75-99)
[2021-10-21] MEDS: INSULIN ASPART (NovoLOG) 100 UNIT/ML VIAL SQ SCH ×6 (00:15→20:35)
[2021-10-21 04:04] LABS: Glucose,Whole Blood 229 mg/dL (75-99)
[2021-10-21 06:21] LABS: Allen Test Performed? Yes
[2021-10-21 06:27] LABS: ABG Base Excess 1.2 mmol/L; ABG HCO3 25 mmol/L (21-25); ABG Oxygen Saturation 82.3 % (94-97); ABG PCO2 35 mmHg (35-45); ABG PH 7.46 (7.35-7.45); ABG TCO2 26 mmol/L (19-24)
[2021-10-21] MEDS: INSULIN DETEMIR (LEVEMIR) 100 UNIT/ML SYR SQ SCH ×2 (06:38→20:35)
[2021-10-21] MEDS: PANTOPRAZOLE 40 MG TABLET PO SCH (06:38)
[2021-10-21 06:46] LABS: ABG PO2 49 mmHg (83-108)
--- NOTE | 2021-10-21 08:38 | P.PN ---
Subjective Progress Note Date: 10/21/21 Principal diagnosis: Septic shock with brief cardiac arrest The patient is seen today 10/20/2021 in follow-up. He presented with septic shock with staph bacteremia. He sustained a brief cardiac arrest while in the emergency room yesterday. He is seen today in follow-up in the intensive care unit. He remains intubated sedated and on the mechanical ventilator. Current settings are assist control at a rate of 30, tidal volume 400, FiO2 80% and a PEEP of 5. Morning blood gases reveal a P O2 of 73, pCO2 36, pH 7.44. White count 25.6. Hemoglobin 8.0. Platelets 78,000. Sodium 136. Potassium 4.3. Bicarb 21. BUN 47. Creatinine 6.95. Glucose 187. Lactic acid 3.6. AST 550. ALT 136. Pro-calcitonin was greater than 100. Current virus not detected. Today's chest x-ray could just remains stable. No evidence of pneumothorax. Endotracheal tube in good position. Nasogastric tube in good position. Evidence of hero catheter in the left subclavian. He has a right brachial arterial line in place. A right femoral hemodialysis catheter in place. Possibly the source of infection. Blood cultures are revealing staph aureus. Final ID is pending. He remains hypotensive and on pressors though improved. Currently on norepinephrine at 0.06 mcg/kg/m. He is on vasopressin at 0.03 and insulin at 4 units per hour. 0.9 normal saline at 20 ML's per hour. Tube f eedings to be initiated today. Plan to add Levemir insulin 30 units twice a day. No plans for hemodialysis today per nephrology. The patient is seen today 10/21/2021 in follow-up in the intensive care unit. He remains intubated on the mechanical ventilator. Current settings are assist- control mode at a rate of 30, tidal volume 400, FiO2 80% and a PEEP of 5 and blood gases reveal a P O2 of 49, pCO2 35, pH 7.46. A.m. labs are pending. Chest x-ray reveals some evidence of fluid volume overload. The plan is for possible hemodialysis today. Currently in a +1.4 L ML balance. He has been we aned off the pressors. Norepinephrine is off. Vasopressin is off. He remains sedated on propofol at 30 mcg/kg/m. His IV fluids at 0.9 normal saline at 20 ML's per hour. Still utilizing the right femoral dialysis catheter for fluids for now. Right brachial arterial line is not functioning. He has 2 peripheral IVs available. Being nourished with vital AF at 34 mL per hour with a goal of 34. Blood cultures are positive for MSSA. On vancomycin and cefepime. Coagulated with Eliquis. Currently in a sinus rhythm. Mean arterial pressure 74. He is making some urine at 10-15 ML's per hour. Blood glucose levels are still running in the mid 200s. He is on Levemir 30 mg subcu twice a day along with a sliding scale. Objective - Vital Signs Vital signs: Vital Signs Temp 99.2 F 10/20/21 20:00 Pulse 85 10/21/21 07:00 Resp 22 10/21/21 06:00 BP 86/53 10/21/21 07:00 Pulse Ox 99 10/21/21 07:00 Intake & Output 10/20/21 10/21/21 10/21/21 18:59 06:59 18:59 Intake Total 628.677 970 70 Output Total 140 60 Balance 488.677 910 70 Weight 106.8 kg Intake: IV 220 480 40 .9 kvo 220 480 40 Intake, IV Titration 298.677 100 Amount Norepinephrine 4 mg In 198.677 Sodium Chloride 0.9% 250 ml @ 0.05 MCG/KG/MIN 10. 715 mls/hr IV .[id number] [facility] Rx#:[id number] propofoL 1,000 mg In 100.000 100 Empty Bag 1 bag @ Titrate IV .Q0M [facility] Rx#: [id number] Tube Feeding 80 300 30 Other 30 90 Output: Urine 140 60 Other: Voiding Method Indwelling Catheter Indwelling Catheter # Bowel Movements 1 ABP, PAP, CO, CI - Last Documented Arterial Blood Pressure 95/57 - Exam GENERAL EXAM: Intubated, sedated, obese 46-year-old male patient, comfortable in no apparent distress. HEAD: Normocephalic. EYES: Sluggish reaction of pupils, equal size. NOSE: Clear with pink turbinates. THROAT: Oral endotracheal and gastric tube secured in place. No erythema or exudates. NECK: No masses, no JVD. CHEST: No chest wall deformity. Left subclavian hero catheter embedded LUNGS: Equal air entry with few scattered rhonchi. CVS: S1 and S2 normal with no audible murmur, regular rhythm. ABDOMEN: No hepatosplenomegaly, normal bowel sounds, no guarding or rigidity. SPINE: No scoliosis or deformity SKIN: No rashes CENTRAL NERVOUS SYSTEM: No focal deficits, tone is normal in all 4 extremities. EXTREMITIES: Brachial arterial line in place, not functioning and will be removed. Right femoral hemodialysis catheter in place. Right below the knee amputation. There is no peripheral edema. No clubbing, no cyanosis. Peripheral pulses are weak. - Labs CBC & Chem 7: 10/20/21 04:25 10/20/21 04:25 Labs: Abnormal Lab Results - Last 24 Hours (Table) 10/20/21 10/20/21 10/20/21 Range/Units 09:25 11:41 11:41 PT 13.7 H (9.0-12.0) sec INR 1.3 H (<1.2) ABG pH (7.35-7.45) ABG pO2 (83-108) mmHg ABG Total CO2 (19-24) mmol/L ABG O2 Saturation (94-97) % POC Glucose (mg/dL) 168 H (75-99) mg/dL Plasma Lactic Acid Steven 3.2 H* (0.7-2.0) mmol/L 10/20/21 10/20/21 10/20/21 Range/Units 12:04 14:03 17:04 PT (9.0-12.0) sec INR (<1.2) ABG pH (7.35-7.45) ABG pO2 (83-108) mmHg ABG Total CO2 (19-24) mmol/L ABG O2 Saturation (94-97) % POC Glucose (mg/dL) 160 H 226 H 249 H (75-99) mg/dL Plasma Lactic Acid Steven (0.7-2.0) mmol/L 10/20/21 10/20/21 10/20/21 Range/Units 17:42 20:35 20:51 PT (9.0-12.0) sec INR (<1.2) ABG pH (7.35-7.45) ABG pO2 (83-108) mmHg ABG Total CO2 (19-24) mmol/L ABG O2 Saturation (94-97) % POC Glucose (mg/dL) 262 H 261 H (75-99) mg/dL Plasma Lactic Acid Steven 3.1 H* (0.7-2.0) mmol/L 10/20/21 10/21/21 10/21/21 Range/Units 23:55 04:01 06:30 PT (9.0-12.0) sec INR (<1.2) ABG pH 7.46 H (7.35-7.45) ABG pO2 49 L* (83-108) mmHg ABG Total CO2 26 H (19-24) mmol/L ABG O2 Saturation 82.3 L (94-97) % POC Glucose (mg/dL) 272 H 229 H (75-99) mg/dL Plasma Lactic Acid Steven (0.7-2.0) mmol/L Microbiology - Last 24 Hours (Table) 10/18/21 08:27 Blood Culture Gram Stain - Final Blood Blood Culture - Final Staphylococcus aureus 10/18/21 08:10 Blood Culture Gram Stain - Final Blood Blood Culture - Final Staphylococcus aureus Assessment and Plan Assessment: 1 Septic shock and subsequent brief cardiac arrest while in the emergency department. He remains intubated on a mechanical ventilator today 10/20/2021 in the intensive care unit. Chest x-ray continues to show some minimal patchy atelectasis. No clear evidence of aspiration. Blood cultures are positive for staph aureus, MSSA. He is currently on vancomycin and cefepime. He does have a significant history of endocarditis and the last ANNABELLE on 10/05/2021 did not reveal any evidence of vegetation. Most likely the right femoral hemodialysis catheter is the source as this has been his only vascular access. 2 Altered mental status, encephalopathy related to sepsis 3 Shock liver secondary to sepsis 4 Cardiac arrest/asystole requiring CPR for about 2-3 minutes with return of spontaneous circulation. Suspect secondary to hyperkalemia. The patient did receive hemodialysis yesterday. 5 Hypotension secondary to sepsis requiring pressors in the form of norepinephrine and vasopressin 6 End-stage renal disease on hemodialysis Friday though did receive hemodialysis yesterday Friday. No plans for hemodialysis today per nephrology 7 Severe peripheral vascular disease with a below the knee amputation on the right 8 Pulmonary embolism secondary to 2 branches of the right lower lobe, maintained on Eliquis 9 Diabetes stover, type II, maintained on insulin pump in the outpatient setting. Currently off. 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 15 Suspect underlying encephalopathy secondary to prolonged hypotension and cardiac arrest Plan: The patient was seen and evaluated today ABGs and CXR reviewed, labs pending Gradually go down on the FiO2 as tolerated, down to 75% Plan is for hemodialysis today Sedation holiday after hemodialysis Remains off pressors Anticoagulated with Eliquis Continue antibiotics per ID services We will continue to follow and make further recommendations based on his clinical status Critical care time 36 minutes I, the cosigning physician, performed a history & physical examination of the patient. Lungs sounds few scattered rhonchi. Maintaining good O2 saturations in the 90s on the ventilator, currently on FiO2 of 75% and a PEEP of 5. I discussed the assessment and plan of care with my nurse practitioner, Taylor Black. I attest to the above note as dictated by her.
--- NOTE | 2021-10-21 08:47 | P.PN ---
Subjective HISTORY OF PRESENTING ILLNESS Patient is a pleasant 46-year-old male with history of end-stage renal disease on hemodialysis, PAD with previous amputations, DVT, diabetes mellitus on insulin pump, recurrent sepsis with staph aureus, prior concern of endocarditis, hypertension who presents secondary to altered mental status and lethargy. Patient currently intubated and sedated and therefore history is supplied by daughter as well as chart. Apparently he had been doing fairly well the prior week however had recently been taken off of antibiotics around a week ago for endovascular infection previously. He then apparently was noted to be more confused and therefore son brought him to the hospital. He previously hospitalization 08/23 where a right femoral dialysis catheter had been placed and has a nonfunctioning hero catheter in the left axillary area. He underwent a ANNABELLE 10/05 without any signs of endocarditis in the hospitalization. Evaluated in the ER and CTA showed possible pulmonary embolism as well as venous ultrasound showing a DVT. Blood cultures were found to be positive in place on antibiotics. He did have a CODE BLUE for approximately 3 minutes the morning of 10/18 with ROSC and was intubated and sedated. He has been placed pressors with vasopressin and Levophed. 10/20 Patient seen and examined. Patient remains on vasopressin and norepinephrine. Patient has poor IV access. Remains sedated on ventilator with FiO2 of 80%. Patient receiving IV antibiotics. Echo performed yesterday and preliminary report without any significant vegetation or significant degree of regurgitation. 10/21 Echocardiogram performed 10/19 which showed new mild decrease in ejection fraction 40-45%, severely enlarged right ventricle similar to prior, moderate to severe tricuspid regurgitation with previous from July showing moderate tricuspid regurgitation and RVSP of 58. He remains on ventilator and FiO2 is decreased from 80-75 this morning. Patient is not on any vasopressors currently. He remains in sinus rhythm. Blood cultures have resulted MSSA. REVIEW OF SYSTEMS Unable to obtain secondary to sedation PHYSICAL EXAMINATION Vital signs reviewed. CONSTITUTIONAL: ill appearing, sedated and intubated HEENT: Head is normocephalic. Pupils are equal, round. Sclerae anicteric. Mucous membranes of the mouth are moist. No JVD. No carotid bruit. CHEST EXAMINATION: Lungs are clear to auscultation. No chest wall tenderness is noted on palpation or with deep breathing. HEART EXAMINATION: Regular rate and rhythm. S1, S2 heard. No murmurs, gallops or rub. ABDOMEN: Soft, nontender. Positive bowel sounds. EXTREMITIES: 2+ peripheral pulses, no lower extremity edema and no calf tenderness. NEUROLOGIC EXAMINATION: Patient is sedated ASSESSMENT 1. Septic shock 2. Staph aureus bacteremia 3. Possible history of endocarditis in the past, recent ANNABELLE showing no involvement 4. Elevated troponins, suspect type II mechanism related to sepsis, hypotension 5. Diabetes mellitus 6. Hypertension, currently hypotensive 7. End-stage renal disease on hemodialysis 8. PAD status post amputations 9. Status post cardiac arrest, suspect mainly related to sepsis less likely cardiac origin with PEA 10. DVT/Questionable pulmonary embolism 11. Moderate to severe tricuspid regurgitation 12. Mild decreased EF 40-45% may be related to sepsis, no obvious ACS PLAN Echo with mildly decreased EF 40-45%. This may be related to underlying sepsis and no obvious acute coronary syndrome. Continue supportive care. Patient does have moderate to severe tricuspid regurgitation however somewhat similar to prior echo from July with ANNABELLE not showing any source of endocarditis. Continue with supportive care. Further recommendations to follow. Continue with anticoagulation for DVT. Prognosis guarded. Objective - Vital Signs Vital signs: Vital Signs Temp 99.2 F 10/20/21 20:00 Pulse 85 10/21/21 07:00 Resp 22 10/21/21 06:00 BP 86/53 10/21/21 07:00 Pulse Ox 99 10/21/21 07:00 Intake & Output 10/20/21 10/21/21 10/21/21 18:59 06:59 18:59 Intake Total 628.677 970 70 Output Total 140 60 Balance 488.677 910 70 Weight 106.8 kg Intake: IV 220 480 40 .9 kvo 220 480 40 Intake, IV Titration 298.677 100 Amount Norepinephrine 4 mg In 198.677 Sodium Chloride 0.9% 250 ml @ 0.05 MCG/KG/MIN 10. 715 mls/hr IV .[id number] [facility] Rx#:[id number] propofoL 1,000 mg In 100.000 100 Empty Bag 1 bag @ Titrate IV .Q0M [facility] Rx#: [id number] Tube Feeding 80 300 30 Other 30 90 Output: Urine 140 60 Other: Voiding Method Indwelling Catheter Indwelling Catheter # Bowel Movements 1 ABP, PAP, CO, CI - Last Documented Arterial Blood Pressure 95/57 - Labs CBC & Chem 7: 10/20/21 04:25 10/20/21 04:25 Labs: Abnormal Lab Results - Last 24 Hours (Table) 10/20/21 10/20/21 10/20/21 Range/Units 09:25 11:41 11:41 PT 13.7 H (9.0-12.0) sec INR 1.3 H (<1.2) ABG pH (7.35-7.45) ABG pO2 (83-108) mmHg ABG Total CO2 (19-24) mmol/L ABG O2 Saturation (94-97) % POC Glucose (mg/dL) 168 H (75-99) mg/dL Plasma Lactic Acid Steven 3.2 H* (0.7-2.0) mmol/L 10/20/21 10/20/21 10/20/21 Range/Units 12:04 14:03 17:04 PT (9.0-12.0) sec INR (<1.2) ABG pH (7.35-7.45) ABG pO2 (83-108) mmHg ABG Total CO2 (19-24) mmol/L ABG O2 Saturation (94-97) % POC Glucose (mg/dL) 160 H 226 H 249 H (75-99) mg/dL Plasma Lactic Acid Steven (0.7-2.0) mmol/L 10/20/21 10/20/21 10/20/21 Range/Units 17:42 20:35 20:51 PT (9.0-12.0) sec INR (<1.2) ABG pH (7.35-7.45) ABG pO2 (83-108) mmHg ABG Total CO2 (19-24) mmol/L ABG O2 Saturation (94-97) % POC Glucose (mg/dL) 262 H 261 H (75-99) mg/dL Plasma Lactic Acid Steven 3.1 H* (0.7-2.0) mmol/L 10/20/21 10/21/21 10/21/21 Range/Units 23:55 04:01 06:30 PT (9.0-12.0) sec INR (<1.2) ABG pH 7.46 H (7.35-7.45) ABG pO2 49 L* (83-108) mmHg ABG Total CO2 26 H (19-24) mmol/L ABG O2 Saturation 82.3 L (94-97) % POC Glucose (mg/dL) 272 H 229 H (75-99) mg/dL Plasma Lactic Acid Steven (0.7-2.0) mmol/L Microbiology - Last 24 Hours (Table) 10/18/21 08:27 Blood Culture Gram Stain - Final Blood Blood Culture - Final Staphylococcus aureus 10/18/21 08:10 Blood Culture Gram Stain - Final Blood Blood Culture - Final Staphylococcus aureus
--- NOTE | 2021-10-21 09:00 | P.PN ---
Subjective Patient is seen in follow-up for end-stage renal disease. He is maintained on hemodialysis on Friday schedule. Off vasopressors. Intubated. Vital signs stable. HEENT: Intubated. LUNGS: Breath sounds decreased. HEART: Rate and Rhythm are regular. ABDOMEN: Soft, obese. EXTREMITITES: Right BKA. No drainage noted from the femoral catheter. Objective - Vital Signs Vital signs: Vital Signs Temp 99.2 F 10/20/21 20:00 Pulse 85 10/21/21 07:00 Resp 22 10/21/21 06:00 BP 86/53 10/21/21 07:00 Pulse Ox 99 10/21/21 07:00 Intake & Output 10/20/21 10/21/21 10/21/21 18:59 06:59 18:59 Intake Total 628.677 970 70 Output Total 140 60 Balance 488.677 910 70 Weight 106.8 kg Intake: IV 220 480 40 .9 kvo 220 480 40 Intake, IV Titration 298.677 100 Amount Norepinephrine 4 mg In 198.677 Sodium Chloride 0.9% 250 ml @ 0.05 MCG/KG/MIN 10. 715 mls/hr IV .[id number] [facility] Rx#:[id number] propofoL 1,000 mg In 100.000 100 Empty Bag 1 bag @ Titrate IV .Q0M [facility] Rx#: [id number] Tube Feeding 80 300 30 Other 30 90 Output: Urine 140 60 Other: Voiding Method Indwelling Catheter Indwelling Catheter # Bowel Movements 1 ABP, PAP, CO, CI - Last Documented Arterial Blood Pressure 95/57 - Labs CBC & Chem 7: 10/20/21 04:25 10/20/21 04:25 Labs: Abnormal Lab Results - Last 24 Hours (Table) 10/20/21 10/20/21 10/20/21 Range/Units 09:25 11:41 11:41 PT 13.7 H (9.0-12.0) sec INR 1.3 H (<1.2) ABG pH (7.35-7.45) ABG pO2 (83-108) mmHg ABG Total CO2 (19-24) mmol/L ABG O2 Saturation (94-97) % POC Glucose (mg/dL) 168 H (75-99) mg/dL Plasma Lactic Acid Steven 3.2 H* (0.7-2.0) mmol/L 10/20/21 10/20/21 10/20/21 Range/Units 12:04 14:03 17:04 PT (9.0-12.0) sec INR (<1.2) ABG pH (7.35-7.45) ABG pO2 (83-108) mmHg ABG Total CO2 (19-24) mmol/L ABG O2 Saturation (94-97) % POC Glucose (mg/dL) 160 H 226 H 249 H (75-99) mg/dL Plasma Lactic Acid Steven (0.7-2.0) mmol/L 10/20/21 10/20/21 10/20/21 Range/Units 17:42 20:35 20:51 PT (9.0-12.0) sec INR (<1.2) ABG pH (7.35-7.45) ABG pO2 (83-108) mmHg ABG Total CO2 (19-24) mmol/L ABG O2 Saturation (94-97) % POC Glucose (mg/dL) 262 H 261 H (75-99) mg/dL Plasma Lactic Acid Steven 3.1 H* (0.7-2.0) mmol/L 10/20/21 10/21/21 10/21/21 Range/Units 23:55 04:01 06:30 PT (9.0-12.0) sec INR (<1.2) ABG pH 7.46 H (7.35-7.45) ABG pO2 49 L* (83-108) mmHg ABG Total CO2 26 H (19-24) mmol/L ABG O2 Saturation 82.3 L (94-97) % POC Glucose (mg/dL) 272 H 229 H (75-99) mg/dL Plasma Lactic Acid Steven (0.7-2.0) mmol/L Microbiology - Last 24 Hours (Table) 10/18/21 08:27 Blood Culture Gram Stain - Final Blood Blood Culture - Final Staphylococcus aureus 10/18/21 08:10 Blood Culture Gram Stain - Final Blood Blood Culture - Final Staphylococcus aureus Assessment and Plan Plan: Assessment: 1. End-stage renal disease maintained on hemodialysis on Friday schedule via right femoral permacath. 2. Septic shock secondary to staph bacteremia. Possible source permacath ve rsus pneumonia. Also has a nonfunctioning hero graft. 3. Metabolic acidosis secondary to chronic kidney disease and lactic acidosis. 4. Hyperkalemia secondary to chronic kidney disease. Improved postdialysis. 5. Diabetes mellitus. 6. Anemia of chronic kidney disease. On Aranesp. Plan: Hemodialysis today. Wean FiO2. Follow-up cultures. Check cultures from the permacath today. Infectious disease following. Okay to remove groin catheter if needed after dialysis today. If catheter will need to be removed or exchanged, will consult vascular surgery. Patient has very limited access options. Comfort measures being discussed by the family.
--- NOTE | 2021-10-21 09:43 | XR ---
EXAMINATION TYPE: XR chest 1V portable DATE OF EXAM: 10/21/2021 COMPARISON: 122 INDICATION: Tube placement TECHNIQUE: Single frontal view of the chest is obtained. FINDINGS: The heart size is mildly prominent. The pulmonary vasculature is normal. Right lower lobe infiltrate is present. Some scattered infiltrates may be in the upper lung martinez. F indings worsened over the interval. Endotracheal tube tip is been advanced and is 1.6 cm above the cristi. Nasogastric tube transverses t he thorax. IMPRESSION: 1. Developing right lower lobe infiltrate with scattered or stable appearing peripheral infiltrates. 2. Endotracheal tube is been advanced slightly currently 1.6 cm above the cristi.
[2021-10-21 10:03] LABS: Albumin 2.7 g/dL (3.5-5.0); Calcium 6.9 mg/dL (8.4-10.2); Potassium 3.8 mmol/L (3.5-5.1); Total Protein 5.4 g/dL (6.3-8.2)
[2021-10-21 10:25] LABS: Anisocytosis Slight; HCT 21.8 % (39.0-53.0); HGB 7.2 gm/dL (13.0-17.5); Hypochromasia Slight; MCH 31.7 pg (25.0-35.0); MCV 96.1 fL (80.0-100.0); Macrocytosis Slight; RBC 2.27 m/uL (4.30-5.90); RDW 17.7 % (11.5-15.5); WBC 16.7 k/uL (3.8-10.6)
[2021-10-21] MEDS: MIDODRINE 5 MG TAB PO SCH ×3 (10:42→20:52)
[2021-10-21] MEDS: APIXABAN 2.5 MG TABLET PO SCH ×2 (10:42→20:34)
[2021-10-21] MEDS: CHLORHEXIDINE GLUCONATE 15 ML CUP MUCOUS MEM SCH ×2 (10:43→20:34)
[2021-10-21] MEDS: SODIUM CHLORIDE 0.9% 1,000 ML IV SCH ×2 (10:43→20:52)
[2021-10-21] MEDS: ASPIRIN 81 MG PO SCH (10:43)
[2021-10-21 12:11] LABS: Glucose,Whole Blood 158 mg/dL (75-99)
[2021-10-21 12:25] LABS: Platelet Count 65 k/uL (150-450)
--- NOTE | 2021-10-21 13:53 | P.PN ---
Subjective Progress Note Date: 10/21/21 Blood pressure appears to be slightly more stable today Patient is a 46-year-old male with known end-stage renal disease on hemodialysis currently out of facility on Friday//Friday, diabetes mellitus on insulin pump with neuropathy and history of right AKA he has been struggling with recurrent MSSA bacteremia associated HD line infections. He was recently discharged on 08/23 after her hospital stay where his hemodialysis catheter was changed out and a dialysis catheter was placed into his right groin. On discharge that time he was completing IV rifampin as well as 6 weeks of IV cefazolin. During that hospital stay he underwent CT chestabdomen/pelvis which showed no additional sources of bacteremia, he also underwent a tagged white blood cell scan which was negative. He did undergo a transesophageal echocardiogram on 10/05 without signs of endocarditis. He presented to the ED via EMS for altered mentation. He was found to be hypotensive despite 500cc bolus. He was started on levophed. CTA chest with smaller thrombus then before. He was started on vanco and levaquin. COVID jovani ting was negative. Blood cultures were obtained. Due to chronic thrombus and multiple veins we had to initiate levo through his hemodialysis catheter. There were unable to obtain an arterial line. He had a cardiac arrest with asystole and was given 1 round of epinephrine area and he was subsequently intubated. After the code his laboratory analysis was significantly different than prior showing hyperkalemia, white blood cell count of 38, and severe lactic acidosis. Lactic acidosis did not respond to IV fluids. He was started on a dextrose and sodium bicarbonate drip which resulted in hyperglycemia. Patient seen and examined at bedside. He is sedated. Events from overnight listed above. General: ill appearing, moderate distress, appears at stated age Derm: warm, dry Head: atraumatic, normocephalic, symmetric Eyes: EOMI, no lid lag, anicteric sclera Mouth: no lip lesion, mucus membranes moist Cardiovascular: S1S2 reg, no murmur, positive radial pulses bilaterally Lungs: Course bilateral, no rhonchi, no rales , no accessory muscle use, on vent Abdominal: soft, nontender to palpation, no guarding, no appreciable organomegaly, Pereira catheter in place with small amounts of hematuria Ext: no gross muscle atrophy, no edema, no contractures, right BKA Neuro: Sedated on vent Psych: Sedated on vent Assessment/plan: Gram-positive bacteremia, suspect MSSA Septic shock Lactic acidosis Acute hypoxic respiratory failure Asystole arrest with Rosc Acute encephalopathy, metabolic and secondary to infection line-await infectious disease recommendations - completed cefazolin 9 days prior to admission -Continue with Vanco and cefepime -IV fluids -Repeat blood cultures in a.m. -Vent management per pulmonary -Wean the Levophed and vasopressin as able -Poor overall prognosis - awati echo End-stage renal disease on hemodialysis-T//Fri Anemia of chronic renal disease Hyperkalemia Metabolic acidosis - HD today if BP tolerated - Nephrology recs - off bicarb gtt with HD Diabetes mellitus type 2 Maintained on insulin pump as an outpatient -Transition to insulin drip from short and long-acting -Accu-Cheks every hour -Hopefully improving glycemic control will improve his acidosis and hyperkalemia -Hemoglobin A1c 7.2 on 08/16/21 Elevated troponin -Likely reflective of end-stage renal disease -Cardiology recommendations appreciated Thromobocytopenia - likely reactive - follow CBC Chronic Pulmonary Embolsim with hx of Massive pulmonary embolism treated with EKOS 7 months ago - Eliquis GERD - PPI Dyslipidemia - not chronically on meds Seizure disorder Anemia of chronic renal disease Patient intubated on pressors management by ICU team S continue management as per ICU team Objective - Vital Signs Vital signs: Vital Signs Temp 97.6 F 10/21/21 12:45 Pulse 83 10/21/21 12:45 Resp 24 10/21/21 12:45 BP 141/80 10/21/21 12:45 Pulse Ox 98 10/21/21 12:00 Intake & Output 10/20/21 10/21/21 10/21/21 18:59 06:59 18:59 Intake Total 628.677 970 446 Output Total 297 58 5430 Balance 488.677 910 -594 Weight 106.8 kg Intake: IV 220 480 120 .9 kvo 220 480 120 Intake, IV Titration 298.677 100 100 Amount Norepinephrine 4 mg In 198.677 Sodium Chloride 0.9% 250 ml @ 0.05 MCG/KG/MIN 10. 715 mls/hr IV .[id number] [facility] Rx#:[id number] propofoL 1,000 mg In 100.000 100 100 Empty Bag 1 bag @ Titrate IV .Q0M [facility] Rx#: [id number] Tube Feeding 80 300 166 Other 30 90 60 Output: Urine 140 60 40 Hemodialysis 1000 Other: Voiding Method Indwelling Catheter Indwelling Catheter # Bowel Movements 1 ABP, PAP, CO, CI - Last Documented Arterial Blood Pressure 95/57 - Labs CBC & Chem 7: 10/21/21 09:15 10/21/21 09:15 Labs: Abnormal Lab Results - Last 24 Hours (Table) 10/20/21 10/20/21 10/20/21 Range/Units 14:03 17:04 17:42 WBC (3.8-10.6) k/uL RBC (4.30-5.90) m/uL Hgb (13.0-17.5) gm/dL Hct (39.0-53.0) % RDW (11.5-15.5) % Plt Count (150-450) k/uL ABG pH (7.35-7.45) ABG pO2 (83-108) mmHg ABG Total CO2 (19-24) mmol/L ABG O2 Saturation (94-97) % Sodium (137-145) mmol/L BUN (9-20) mg/dL Creatinine (0.66-1.25) mg/dL Glucose (74-99) mg/dL POC Glucose (mg/dL) 226 H 249 H 262 H (75-99) mg/dL Plasma Lactic Acid Steven (0.7-2.0) mmol/L Calcium (8.4-10.2) mg/dL Total Bilirubin (0.2-1.3) mg/dL AST (17-59) U/L ALT (4-49) U/L Alkaline Phosphatase (38-126) U/L Total Protein (6.3-8.2) g/dL Albumin (3.5-5.0) g/dL 10/20/21 10/20/21 10/20/21 Range/Units 20:35 20:51 23:55 WBC (3.8-10.6) k/uL RBC (4.30-5.90) m/uL Hgb (13.0-17.5) gm/dL Hct (39.0-53.0) % RDW (11.5-15.5) % Plt Count (150-450) k/uL ABG pH (7.35-7.45) ABG pO2 (83-108) mmHg ABG Total CO2 (19-24) mmol/L ABG O2 Saturation (94-97) % Sodium (137-145) mmol/L BUN (9-20) mg/dL Creatinine (0.66-1.25) mg/dL Glucose (74-99) mg/dL POC Glucose (mg/dL) 261 H 272 H (75-99) mg/dL Plasma Lactic Acid Steven 3.1 H* (0.7-2.0) mmol/L Calcium (8.4-10.2) mg/dL Total Bilirubin (0.2-1.3) mg/dL AST (17-59) U/L ALT (4-49) U/L Alkaline Phosphatase (38-126) U/L Total Protein (6.3-8.2) g/dL Albumin (3.5-5.0) g/dL 10/21/21 10/21/21 10/21/21 Range/Units 04:01 06:30 09:15 WBC 16.7 H (3.8-10.6) k/uL RBC 2.27 L (4.30-5.90) m/uL Hgb 7.2 L (13.0-17.5) gm/dL Hct 21.8 L (39.0-53.0) % RDW 17.7 H (11.5-15.5) % Plt Count 65 L (150-450) k/uL ABG pH 7.46 H (7.35-7.45) ABG pO2 49 L* (83-108) mmHg ABG Total CO2 26 H (19-24) mmol/L ABG O2 Saturation 82.3 L (94-97) % Sodium (137-145) mmol/L BUN (9-20) mg/dL Creatinine (0.66-1.25) mg/dL Glucose (74-99) mg/dL POC Glucose (mg/dL) 229 H (75-99) mg/dL Plasma Lactic Acid Steven (0.7-2.0) mmol/L Calcium (8.4-10.2) mg/dL Total Bilirubin (0.2-1.3) mg/dL AST (17-59) U/L ALT (4-49) U/L Alkaline Phosphatase (38-126) U/L Total Protein (6.3-8.2) g/dL Albumin (3.5-5.0) g/dL 10/21/21 10/21/21 Range/Units 09:15 12:09 WBC (3.8-10.6) k/uL RBC (4.30-5.90) m/uL Hgb (13.0-17.5) gm/dL Hct (39.0-53.0) % RDW (11.5-15.5) % Plt Count (150-450) k/uL ABG pH (7.35-7.45) ABG pO2 (83-108) mmHg ABG Total CO2 (19-24) mmol/L ABG O2 Saturation (94-97) % Sodium 136 L (137-145) mmol/L BUN 74 H (9-20) mg/dL Creatinine 8.41 H* (0.66-1.25) mg/dL Glucose 195 H (74-99) mg/dL POC Glucose (mg/dL) 158 H (75-99) mg/dL Plasma Lactic Acid Steven (0.7-2.0) mmol/L Calcium 6.9 L (8.4-10.2) mg/dL Total Bilirubin 2.0 H (0.2-1.3) mg/dL AST 640 H (17-59) U/L ALT 245 H (4-49) U/L Alkaline Phosphatase 257 H (38-126) U/L Total Protein 5.4 L (6.3-8.2) g/dL Albumin 2.7 L (3.5-5.0) g/dL Microbiology - Last 24 Hours (Table) 10/18/21 22:28 Gram Stain - Final Sputum Sputum Culture - Final 10/18/21 08:27 Blood Culture Gram Stain - Final Blood Blood Culture - Final Staphylococcus aureus 10/18/21 08:10 Blood Culture Gram Stain - Final Blood Blood Culture - Final Staphylococcus aureus
[2021-10-21 16:43] LABS: Glucose,Whole Blood 137 mg/dL (75-99)
[2021-10-21] MEDS: NOREPINEPHRINE 4 MG in SODIUM CHLORIDE 0.9% 250 ML IV SCH (20:00)
[2021-10-21 20:29] LABS: Glucose,Whole Blood 173 mg/dL (75-99)
[2021-10-21] MEDS: CEFEPIME 1 GM in SODIUM CHLORIDE 0.9% 50 ML IVPB SCH (20:47)
--- NOTE | 2021-10-21 22:10 | PN ---
PROGRESS NOTE DATE OF SERVICE: 10/21/2021 REASON FOR FOLLOWUP: Sepsis with MSSA bacteremia dialysis catheter, question of pneumonia. INTERVAL HISTORY: The patient is afebrile. The patient remains intubated on the vent. FiO2 is currently at 65%. No significant purulent secretions through the ET, diarrhea or any other changes reported by the nursing staff. PHYSICAL EXAMINATION: Blood pressure 97/58 with a pulse of 89, temperature 99.8. She is 95% on 65% FiO2. General description is a middle-aged male intubated on the vent. Respiratory system: Unlabored breathing, decreased intensity of breath sounds. No wheeze. Heart S1, S2. Regular rate and rhythm. Abdomen soft, no tenderness. LABS: Hemoglobin is 7.9, white count down to 16.7. Liver enzymes are elevated. DIAGNOSTIC IMPRESSION AND PLAN: Patient with sepsis with MSSA bacteremia. Source is likely right groin dialysis catheter. There was a question of pneumonia, broadly covered with cefepime and vancomycin; to continue while waiting for repeat culture to finalize, and monitor his clinical course closely. MMODL / IJN: [id number] /
[2021-10-22] MEDS: SODIUM CHLORIDE 0.9% 150 ML with VASOPRESSIN 60 UNIT IV SCH ×2 (01:19)
[2021-10-22 01:23] LABS: Glucose,Whole Blood 177 mg/dL (75-99)
[2021-10-22] MEDS: INSULIN ASPART (NovoLOG) 100 UNIT/ML VIAL SQ SCH ×6 (01:31→20:14)
[2021-10-22 05:01] LABS: Glucose,Whole Blood 171 mg/dL (75-99)
[2021-10-22 05:56] LABS: ABG Base Excess 6.9 mmol/L; ABG HCO3 29 mmol/L (21-25); ABG Oxygen Saturation 97.5 % (94-97); ABG PCO2 34 mmHg (35-45); ABG PH 7.54 (7.35-7.45); ABG PO2 103 mmHg (83-108); ABG TCO2 31 mmol/L (19-24); Allen Test Performed? Yes
[2021-10-22 06:42] LABS: Calcium 7.3 mg/dL (8.4-10.2); Potassium 3.4 mmol/L (3.5-5.1)
[2021-10-22 06:47] LABS: Vancomycin,Random 20.9 ug/mL
[2021-10-22] MEDS: INSULIN DETEMIR (LEVEMIR) 100 UNIT/ML SYR SQ SCH ×2 (06:59→20:15)
[2021-10-22] MEDS: PANTOPRAZOLE 40 MG TABLET PO SCH (06:59)
[2021-10-22 07:14] LABS: Anisocytosis Slight; HCT 21.6 % (39.0-53.0); Hypochromasia Slight; MCH 31.5 pg (25.0-35.0); MCHC 32.2 g/dL (31.0-37.0); Macrocytosis Slight; RDW 17.7 % (11.5-15.5); WBC 12.6 k/uL (3.8-10.6)
[2021-10-22 07:23] LABS: Platelet Count 79 k/uL (150-450)
[2021-10-22 07:25] LABS: HGB 6.9 gm/dL (13.0-17.5)
[2021-10-22 07:44] LABS: Glucose,Whole Blood 162 mg/dL (75-99)
[2021-10-22] MEDS: MIDODRINE 5 MG TAB PO SCH ×3 (07:56→20:15)
[2021-10-22] MEDS: POTASSIUM BICARBONATE/CIT AC 20 MEQ TABLET.EFF NG-TUBE SCH ×2 (07:56→09:07)
[2021-10-22] MEDS: CHLORHEXIDINE GLUCONATE 15 ML CUP MUCOUS MEM SCH ×2 (07:56→20:14)
[2021-10-22] MEDS: NOREPINEPHRINE 4 MG in SODIUM CHLORIDE 0.9% 250 ML IV SCH (07:57)
[2021-10-22] MEDS ORDERED: IPRATROPIUM-ALBUTEROL 3 ML NEB INHALATION PRN (08:03)
--- NOTE | 2021-10-22 08:18 | XR ---
EXAMINATION TYPE: XR chest 1V portable DATE OF EXAM: 10/22/2021 COMPARISON: Chest x-ray 10/21/2021 HISTORY: Intubated TECHNIQUE: Single frontal view of the chest is obtained. FINDINGS: Endotracheal tube, NG tube, left jugular central venous catheter are overlying stable posi tions, central venous catheter tip is within the right atrium. No evident pneumothorax or pleural eff usion. Patchy airspace disease persists in the right lung, there is volume loss. Cardiac mediastinal silhouette is stable, patient is rotated. There are overlying artifacts, lung volumes are low. IMPRESSION: Findings similar to prior exam, correlate for atelectasis versus pneumonia
[2021-10-22] MEDS: APIXABAN 2.5 MG TABLET PO SCH ×2 (09:08→20:15)
[2021-10-22] MEDS: ASPIRIN 81 MG PO SCH (09:08)
--- NOTE | 2021-10-22 09:28 | P.PN ---
Subjective Patient is seen in follow-up for end-stage renal disease. He is maintained on hemodialysis on Friday schedule. Off vasopressors. Intubated. Vital signs stable. HEENT: Intubated. LUNGS: Breath sounds decreased. HEART: Rate and Rhythm are regular. ABDOMEN: Soft, obese. EXTREMITITES: Right BKA. No drainage noted from the femoral catheter. Objective - Vital Signs Vital signs: Vital Signs Temp 99.8 F H 10/21/21 16:00 Pulse 80 10/22/21 07:00 Resp 30 H 10/22/21 07:00 BP 118/68 10/22/21 07:00 Pulse Ox 99 10/22/21 07:00 Intake & Output 10/21/21 10/22/21 10/22/21 18:59 06:59 18:59 Intake Total 910.000 706.158 44 Output Total 1065 30 Balance -155.000 676.158 44 Intake: IV 240 110 10 .9 kvo 240 110 10 Intake, IV Titration 200.000 162.158 Amount propofoL 1,000 mg In 200.000 162.158 Empty Bag 1 bag @ Titrate IV .Q0M [facility] Rx#: [id number] Tube Feeding 380 374 34 Other 90 60 Output: Urine 65 30 Hemodialysis 1000 Other: Voiding Method Indwelling Catheter Indwelling Catheter ABP, PAP, CO, CI - Last Documented Arterial Blood Pressure 95/57 - Labs CBC & Chem 7: 10/22/21 06:01 10/22/21 06:01 Labs: Abnormal Lab Results - Last 24 Hours (Table) 10/21/21 10/21/21 10/21/21 Range/Units 09:15 09:15 12:09 WBC 16.7 H (3.8-10.6) k/uL RBC 2.27 L (4.30-5.90) m/uL Hgb 7.2 L (13.0-17.5) gm/dL Hct 21.8 L (39.0-53.0) % RDW 17.7 H (11.5-15.5) % Plt Count 65 L (150-450) k/uL ABG pH (7.35-7.45) ABG pCO2 (35-45) mmHg ABG HCO3 (21-25) mmol/L ABG Total CO2 (19-24) mmol/L ABG O2 Saturation (94-97) % Sodium 136 L (137-145) mmol/L Potassium (3.5-5.1) mmol/L BUN 74 H (9-20) mg/dL Creatinine 8.41 H* (0.66-1.25) mg/dL Glucose 195 H (74-99) mg/dL POC Glucose (mg/dL) 158 H (75-99) mg/dL Calcium 6.9 L (8.4-10.2) mg/dL Total Bilirubin 2.0 H (0.2-1.3) mg/dL AST 640 H (17-59) U/L ALT 245 H (4-49) U/L Alkaline Phosphatase 257 H (38-126) U/L Total Protein 5.4 L (6.3-8.2) g/dL Albumin 2.7 L (3.5-5.0) g/dL 10/21/21 10/21/21 10/22/21 Range/Units 16:42 20:27 01:21 WBC (3.8-10.6) k/uL RBC (4.30-5.90) m/uL Hgb (13.0-17.5) gm/dL Hct (39.0-53.0) % RDW (11.5-15.5) % Plt Count (150-450) k/uL ABG pH (7.35-7.45) ABG pCO2 (35-45) mmHg ABG HCO3 (21-25) mmol/L ABG Total CO2 (19-24) mmol/L ABG O2 Saturation (94-97) % Sodium (137-145) mmol/L Potassium (3.5-5.1) mmol/L BUN (9-20) mg/dL Creatinine (0.66-1.25) mg/dL Glucose (74-99) mg/dL POC Glucose (mg/dL) 137 H 173 H 177 H (75-99) mg/dL Calcium (8.4-10.2) mg/dL Total Bilirubin (0.2-1.3) mg/dL AST (17-59) U/L ALT (4-49) U/L Alkaline Phosphatase (38-126) U/L Total Protein (6.3-8.2) g/dL Albumin (3.5-5.0) g/dL 10/22/21 10/22/21 10/22/21 Range/Units 04:59 06:01 06:01 WBC 12.6 H (3.8-10.6) k/uL RBC 2.20 L (4.30-5.90) m/uL Hgb 6.9 L* (13.0-17.5) gm/dL Hct 21.6 L (39.0-53.0) % RDW 17.7 H (11.5-15.5) % Plt Count 79 L (150-450) k/uL ABG pH (7.35-7.45) ABG pCO2 (35-45) mmHg ABG HCO3 (21-25) mmol/L ABG Total CO2 (19-24) mmol/L ABG O2 Saturation (94-97) % Sodium (137-145) mmol/L Potassium 3.4 L (3.5-5.1) mmol/L BUN 56 H (9-20) mg/dL Creatinine 5.68 H (0.66-1.25) mg/dL Glucose 157 H (74-99) mg/dL POC Glucose (mg/dL) 171 H (75-99) mg/dL Calcium 7.3 L (8.4-10.2) mg/dL Total Bilirubin (0.2-1.3) mg/dL AST (17-59) U/L ALT (4-49) U/L Alkaline Phosphatase (38-126) U/L Total Protein (6.3-8.2) g/dL Albumin (3.5-5.0) g/dL 10/22/21 10/22/21 Range/Units 06:03 07:42 WBC (3.8-10.6) k/uL RBC (4.30-5.90) m/uL Hgb (13.0-17.5) gm/dL Hct (39.0-53.0) % RDW (11.5-15.5) % Plt Count (150-450) k/uL ABG pH 7.54 H (7.35-7.45) ABG pCO2 34 L (35-45) mmHg ABG HCO3 29 H (21-25) mmol/L ABG Total CO2 31 H (19-24) mmol/L ABG O2 Saturation 97.5 H (94-97) % Sodium (137-145) mmol/L Potassium (3.5-5.1) mmol/L BUN (9-20) mg/dL Creatinine (0.66-1.25) mg/dL Glucose (74-99) mg/dL POC Glucose (mg/dL) 162 H (75-99) mg/dL Calcium (8.4-10.2) mg/dL Total Bilirubin (0.2-1.3) mg/dL AST (17-59) U/L ALT (4-49) U/L Alkaline Phosphatase (38-126) U/L Total Protein (6.3-8.2) g/dL Albumin (3.5-5.0) g/dL Microbiology - Last 24 Hours (Table) 10/18/21 22:28 Gram Stain - Final Sputum Sputum Culture - Final Assessment and Plan Plan: Assessment: 1. End-stage renal disease maintained on hemodialysis on Friday schedule via right femoral permacath. 2. Septic shock secondary to staph bacteremia. Possible source permacath versus pneumonia. Also has a nonfunctioning hero graft. 3. Metabolic acidosis secondary to chronic kidney disease and lactic acidosis. Improved. 4. Hyperkalemia secondary to chronic kidney disease. Improved postdialysis. 5. Diabetes mellitus. 6. Anemia of chronic kidney disease. On Aranesp. Hemoglobin 6.9 today. Plan: Show treatment of hemodialysis today. He will receive a unit of blood with dialysis today. Wean FiO2. Follow-up cultures. Infectious disease following. Patient has very limited vascular access options. Defer to infectious disease regarding need for catheter removal. Replace potassium. 40 mEq today.
[2021-10-22 11:25] LABS: Glucose,Whole Blood 168 mg/dL (75-99)
--- NOTE | 2021-10-22 11:27 | P.PN ---
Subjective Progress Note Date: 10/22/21 Principal diagnosis: decreased responsiveness Patient is a 46-year-old male with known end-stage renal disease on hemodialysis currently out of facility on Friday//Friday, diabetes mellitus on insulin pump with neuropathy and history of right AKA he has been struggling with recurrent MSSA bacteremia associated HD line infections. He was recently discharged on 08/23 after her hospital stay where his hemodialysis catheter was changed out and a dialysis catheter was placed into his right groin. On discharge that time he was completing IV rifampin as well as 6 weeks of IV cefazolin. During that hospital stay he underwent CT chestabdomen/pelvis which showed no additional sources of bacteremia, he also underwent a tagged white blood cell scan which was negative. He did undergo a transesophageal echocardiogram on 10/05 without signs of endocarditis. He presented to the ED via EMS for altered mentation. He was found to be hypotensive despite 500cc bolus. He was started on levophed. CTA chest with smaller thrombus then before. He was started on vanco and levaquin. COVID testing was negative. Blood cultures were obtained. Due to chronic thrombus and multiple veins we had to initiate levo through his hemodialysis catheter. There were unable to obtain an arterial line. He had a cardiac arrest with asystole and was given 1 round of epinephrine area and he was subsequently intubated. After the code his laboratory analysis was significantly different than prior showing hyperkalemia, white blood cell count of 38, and severe lactic acidosis. Lactic acidosis did not respond to IV fluids. He was started on a dextrose and sodium bicarbonate drip which resulted in hyperglycemia. His pressors were slowly able to be weaned. His hyperglycemia resolved as transitioned to long-acting insulin sliding scale. His FiO2 requirements decreased. He was found to have severe tricuspid regurgitation and pulmonary hypertension as well as an EF of 45%. Patient seen and examined at bedside. He is sedated. No acute issues overnight General: ill appearing, mild distress, appears at stated age Derm: warm, dry Head: atraumatic, normocephalic, symmetric Eyes: EOMI, no lid lag, anicteric sclera Mouth: no lip lesion, mucus membranes moist Cardiovascular: S1S2 reg, no murmur, positive radial pulses bilaterally Lungs: Course bilateral, no rhonchi, no rales , no accessory muscle use, on vent Abdominal: soft, nontender to palpation, no guarding, no appreciable organomegaly, Pereira catheter in place with small amounts of hematuria Ext: no gross muscle atrophy, no edema, no contractures, right BKA Neuro: Sedated on vent Psych: Sedated on vent Assessment/plan: MSSA bacteremia Septic shock Lactic acidosis Acute hypoxic respiratory failure Asystole arrest with Rosc Acute encephalopathy, metabolic and secondary to infection line-await infectious disease recommendations - completed cefazolin 9 days prior to admission -Continue with Vanco and cefepime -IV fluids -Await repeat blood cultures -Vent management per pulmonary - Recent ANNABELLE and TTE without vegetations - ID recs, Naficillin End-stage renal disease on hemodialysis-T//Fri Anemia of chronic renal disease Hyperkalemia Metabolic acidosis - HD today with 1 unit pRBC - D/W Nephrology Diabetes mellitus type 2 Maintained on insulin pump as an outpatient - accucehck - Levemire and SSI -Hopefully improving glycemic control will improve his acidosis and hyperkalemia -Hemoglobin A1c 7.2 on 08/16/21 Elevated troponin -Likely reflective of end-stage renal disease -Cardiology recommendations appreciated Thromobocytopenia - likely reactive - follow CBC Chronic Pulmonary Embolsim with hx of Massive pulmonary embolism treated with EKOS 7 months ago - Eliquis GERD - PPI Dyslipidemia - not chronically on meds Seizure disorder DVT prophylaxis: eliquis Discussed with: patient, nursing, son Anticipated discharge date: undetermined Anticipated discharge place: undetermined A total of 35 minutes was spent on the care of this complex patient more than 50% of the time was spent in counseling and care coordination. Objective - Vital Signs Vital signs: Vital Signs Temp 99.8 F H 10/21/21 16:00 Pulse 80 10/22/21 07:00 Resp 30 H 10/22/21 07:00 BP 118/68 10/22/21 07:00 Pulse Ox 99 10/22/21 07:00 Intake & Output 10/21/21 10/22/21 10/22/21 18:59 06:59 18:59 Intake Total 910.000 706.158 44 Output Total 1065 30 Balance -155.000 676.158 44 Intake: IV 240 110 10 .9 kvo 240 110 10 Intake, IV Titration 200.000 162.158 Amount propofoL 1,000 mg In 200.000 162.158 Empty Bag 1 bag @ Titrate IV .Q0M [facility] Rx#: [id number] Tube Feeding 380 374 34 Other 90 60 Output: Urine 65 30 Hemodialysis 1000 Other: Voiding Method Indwelling Catheter Indwelling Catheter ABP, PAP, CO, CI - Last Documented Arterial Blood Pressure 95/57 - Labs CBC & Chem 7: 10/22/21 06:01 10/22/21 06:01 Labs: Abnormal Lab Results - Last 24 Hours (Table) 10/21/21 10/21/21 10/21/21 Range/Units 09:15 12:09 16:42 WBC (3.8-10.6) k/uL RBC (4.30-5.90) m/uL Hgb (13.0-17.5) gm/dL Hct (39.0-53.0) % RDW (11.5-15.5) % Plt Count 65 L (150-450) k/uL ABG pH (7.35-7.45) ABG pCO2 (35-45) mmHg ABG HCO3 (21-25) mmol/L ABG Total CO2 (19-24) mmol/L ABG O2 Saturation (94-97) % Potassium (3.5-5.1) mmol/L BUN (9-20) mg/dL Creatinine (0.66-1.25) mg/dL Glucose (74-99) mg/dL POC Glucose (mg/dL) 158 H 137 H (75-99) mg/dL Calcium (8.4-10.2) mg/dL 10/21/21 10/22/21 10/22/21 Range/Units 20:27 01:21 04:59 WBC (3.8-10.6) k/uL RBC (4.30-5.90) m/uL Hgb (13.0-17.5) gm/dL Hct (39.0-53.0) % RDW (11.5-15.5) % Plt Count (150-450) k/uL ABG pH (7.35-7.45) ABG pCO2 (35-45) mmHg ABG HCO3 (21-25) mmol/L ABG Total CO2 (19-24) mmol/L ABG O2 Saturation (94-97) % Potassium (3.5-5.1) mmol/L BUN (9-20) mg/dL Creatinine (0.66-1.25) mg/dL Glucose (74-99) mg/dL POC Glucose (mg/dL) 173 H 177 H 171 H (75-99) mg/dL Calcium (8.4-10.2) mg/dL 10/22/21 10/22/21 10/22/21 Range/Units 06:01 06:01 06:03 WBC 12.6 H (3.8-10.6) k/uL RBC 2.20 L (4.30-5.90) m/uL Hgb 6.9 L* (13.0-17.5) gm/dL Hct 21.6 L (39.0-53.0) % RDW 17.7 H (11.5-15.5) % Plt Count 79 L (150-450) k/uL ABG pH 7.54 H (7.35-7.45) ABG pCO2 34 L (35-45) mmHg ABG HCO3 29 H (21-25) mmol/L ABG Total CO2 31 H (19-24) mmol/L ABG O2 Saturation 97.5 H (94-97) % Potassium 3.4 L (3.5-5.1) mmol/L BUN 56 H (9-20) mg/dL Creatinine 5.68 H (0.66-1.25) mg/dL Glucose 157 H (74-99) mg/dL POC Glucose (mg/dL) (75-99) mg/dL Calcium 7.3 L (8.4-10.2) mg/dL 10/22/21 Range/Units 07:42 WBC (3.8-10.6) k/uL RBC (4.30-5.90) m/uL Hgb (13.0-17.5) gm/dL Hct (39.0-53.0) % RDW (11.5-15.5) % Plt Count (150-450) k/uL ABG pH (7.35-7.45) ABG pCO2 (35-45) mmHg ABG HCO3 (21-25) mmol/L ABG Total CO2 (19-24) mmol/L ABG O2 Saturation (94-97) % Potassium (3.5-5.1) mmol/L BUN (9-20) mg/dL Creatinine (0.66-1.25) mg/dL Glucose (74-99) mg/dL POC Glucose (mg/dL) 162 H (75-99) mg/dL Calcium (8.4-10.2) mg/dL Microbiology - Last 24 Hours (Table) 10/18/21 22:28 Gram Stain - Final Sputum Sputum Culture - Final
[2021-10-22] MEDS: NAFCILLIN 2 GM in DEXTROSE 5% IN WATER 100 ML IVPB SCH ×6 (11:59→20:15)
[2021-10-22] MEDS: IPRATROPIUM-ALBUTEROL 3 ML NEB INHALATION SCH ×3 (12:30→21:13)
--- NOTE | 2021-10-22 13:12 | US ---
EXAMINATION TYPE: US liver DATE OF EXAM: 10/22/2021 COMPARISON: CT 08/22/2021 CLINICAL HISTORY: transaminitis. transaminitis EXAM MEASUREMENTS: Liver Length: 19.2 cm Gallbladder Wall: 0.5 cm CBD: 0.6 cm Right Kidney: 9.5 x 4.4 x 3.6 cm technical limitations, intubated ICU patient Pancreas: Obscured by bowel gas Liver: enlarged, there is a somewhat coarse echotexture Gallbladder: contracted, thickened wall Evidence for sonographic Gross's sign: no CBD: wnl Right Kidney: lower pole obscured by overlying bowel content, questionable soft tissue abnormality s een on prior CT at this level. Kidney not well seen, suspect there is cortical thinning, underlying m edical renal disease. small amount of free fluid RUQ adjacent to liver IMPRESSION: Limited exam, correlate for hepatocellular disease, liver appears borderline enlarged. Th ere is minimal ascites. Thickened gallbladder wall could be due to lack of distention or can be seen with ascites. Correlate for medical renal disease, difficult to exclude soft tissue lesion within the right renal pelvis lower pole seen on prior CT.
--- NOTE | 2021-10-22 13:22 | P.PN ---
Subjective Progress Note Date: 10/22/21 Principal diagnosis: Septic shock On 10/22/2021 patient seen in follow-up in the intensive care unit, he remains intubated, and sedated, currently on volume assist control 1 of ventilation with a rate of 30, tidal lamberts 400, FiO2 50% and PEEP of 5, this morning's blood gas shows pO2 of 103, pCO2 34, pH is 7.54 this was done and FiO2 of 65%. Today's chest x-ray has been reviewed showing no evident pneumothorax or pleural effusion, patchy airspace disease persistence in the right lung with volume loss, low lung volumes. He is currently on Diprivan at 25 mics per kilo per minute, no other drips. His on tube feedings with vital AF at a rate of 34 with a goal of 34 in standard water flushes, patient had a hemodialysis treatment yesterday on 10/21/2021 with removal of 1 L of fluid, he is planning to have another hemodialysis session today. Today's labs have been reviewed, his white blood cell count continues to improve and is down to 12.6 on today's labs, hemoglobin is down to 6.1, and patient is supposed to have one unit of packed red blood cells transfused this morning, his last INR from 10/20/2021 was 1.3, sodium is 141, attest him is 3.4, chloride is 101, CO2 is 28, anion gap was 12, BUN is 56, creatinine is 5.68, renal function has significantly improved since admission. His liver enzymes were up trending still on yesterday's labs, and AST was 640, ALT was 245, and alkaline phosphatase was up to 257. Patient tested negative for COVID-19, was found to be bacteremic with evidence of MSSA in his blood cultures. His last set of blood cultures on 10/21/2021 had shown no growth thus far, his sputum has been negative thus far. Patient is currently on nafcillin, ID service is following. Vancomycin has been discontinued. Patient continues on Eliquis 2.5 mg twice daily for history of pulmonary embolism. Hemodynamically patient is stable. Low-grade fevers overnight, but overall more stable. Objective - Vital Signs Vital signs: Vital Signs Temp 98.8 F 10/22/21 09:00 Pulse 81 10/22/21 11:00 Resp 33 H 10/22/21 11:00 BP 98/50 10/22/21 11:00 Pulse Ox 98 10/22/21 11:00 Intake & Output 10/21/21 10/22/21 10/22/21 18:59 06:59 18:59 Intake Total 910.000 706.158 44 Output Total 1065 30 50 Balance -155.000 676.158 -6 Weight 109.2 kg Intake: IV 240 110 10 .9 kvo 240 110 10 Intake, IV Titration 200.000 162.158 Amount propofoL 1,000 mg In 200.000 162.158 Empty Bag 1 bag @ Titrate IV .Q0M [facility] Rx#: [id number] Tube Feeding 380 374 34 Other 90 60 Output: Urine 65 30 50 Hemodialysis 1000 Other: Voiding Method Indwelling Catheter Indwelling Catheter Indwelling Catheter ABP, PAP, CO, CI - Last Documented Arterial Blood Pressure 95/57 - Exam GENERAL EXAM: Sedated, intubated, 46-year-old male on volume assist control mode of ventilation with a rate of 30, tidal volume is 400, FiO2 of 50% and PEEP of 5 comfortable in no apparent distress. HEAD: Normocephalic/atraumatic. EYES: Normal reaction of pupils, equal size. Conjunctiva pink, sclera white. NOSE: Clear with pink turbinates. THROAT: No erythema or exudates. NECK: No masses, no JVD, no thyroid enlargement, no adenopathy. CHEST: No chest wall deformity. Symmetrical expansion. Healed incision in the left upper chest from previous Hero catheter in the left subclavian LUNGS: Equal air entry with no crackles, wheeze, rhonchi or dullness. CVS: Regular rate and rhythm, normal S1 and S2, no gallops, no murmurs, no rubs ABDOMEN: Soft, nontender. No hepatosplenomegaly, normal bowel sounds, no guarding or rigidity. EXTREMITIES: No clubbing, no edema, no cyanosis, 2+ pulses and upper and lower extremities. MUSCULOSKELETAL: Muscle strength and tone normal. Right below the knee amputation, right femoral hemodialysis catheter is in place SPINE: No scoliosis or deformity SKIN: No rashes CENTRAL NERVOUS SYSTEM: Sedated and intubated No focal deficits, tone is normal in all 4 extremities. - Labs CBC & Chem 7: 10/22/21 06:01 10/22/21 06:01 Labs: Abnormal Lab Results - Last 24 Hours (Table) 10/21/21 10/21/21 10/22/21 Range/Units 16:42 20:27 01:21 WBC (3.8-10.6) k/uL RBC (4.30-5.90) m/uL Hgb (13.0-17.5) gm/dL Hct (39.0-53.0) % RDW (11.5-15.5) % Plt Count (150-450) k/uL ABG pH (7.35-7.45) ABG pCO2 (35-45) mmHg ABG HCO3 (21-25) mmol/L ABG Total CO2 (19-24) mmol/L ABG O2 Saturation (94-97) % Potassium (3.5-5.1) mmol/L BUN (9-20) mg/dL Creatinine (0.66-1.25) mg/dL Glucose (74-99) mg/dL POC Glucose (mg/dL) 137 H 173 H 177 H (75-99) mg/dL Calcium (8.4-10.2) mg/dL Crossmatch 10/22/21 10/22/21 10/22/21 Range/Units 04:59 06:01 06:01 WBC 12.6 H (3.8-10.6) k/uL RBC 2.20 L (4.30-5.90) m/uL Hgb 6.9 L* (13.0-17.5) gm/dL Hct 21.6 L (39.0-53.0) % RDW 17.7 H (11.5-15.5) % Plt Count 79 L (150-450) k/uL ABG pH (7.35-7.45) ABG pCO2 (35-45) mmHg ABG HCO3 (21-25) mmol/L ABG Total CO2 (19-24) mmol/L ABG O2 Saturation (94-97) % Potassium 3.4 L (3.5-5.1) mmol/L BUN 56 H (9-20) mg/dL Creatinine 5.68 H (0.66-1.25) mg/dL Glucose 157 H (74-99) mg/dL POC Glucose (mg/dL) 171 H (75-99) mg/dL Calcium 7.3 L (8.4-10.2) mg/dL Crossmatch 10/22/21 10/22/21 10/22/21 Range/Units 06:03 07:42 10:07 WBC (3.8-10.6) k/uL RBC (4.30-5.90) m/uL Hgb (13.0-17.5) gm/dL Hct (39.0-53.0) % RDW (11.5-15.5) % Plt Count (150-450) k/uL ABG pH 7.54 H (7.35-7.45) ABG pCO2 34 L (35-45) mmHg ABG HCO3 29 H (21-25) mmol/L ABG Total CO2 31 H (19-24) mmol/L ABG O2 Saturation 97.5 H (94-97) % Potassium (3.5-5.1) mmol/L BUN (9-20) mg/dL Creatinine (0.66-1.25) mg/dL Glucose (74-99) mg/dL POC Glucose (mg/dL) 162 H (75-99) mg/dL Calcium (8.4-10.2) mg/dL Crossmatch See Detail 10/22/21 Range/Units 11:24 WBC (3.8-10.6) k/uL RBC (4.30-5.90) m/uL Hgb (13.0-17.5) gm/dL Hct (39.0-53.0) % RDW (11.5-15.5) % Plt Count (150-450) k/uL ABG pH (7.35-7.45) ABG pCO2 (35-45) mmHg ABG HCO3 (21-25) mmol/L ABG Total CO2 (19-24) mmol/L ABG O2 Saturation (94-97) % Potassium (3.5-5.1) mmol/L BUN (9-20) mg/dL Creatinine (0.66-1.25) mg/dL Glucose (74-99) mg/dL POC Glucose (mg/dL) 168 H (75-99) mg/dL Calcium (8.4-10.2) mg/dL Crossmatch Microbiology - Last 24 Hours (Table) 10/21/21 09:15 Blood Culture - Preliminary Blood No Growth after 24 hours 10/18/21 22:28 Gram Stain - Final Sputum Sputum Culture - Final Assessment and Plan Plan: Assessment: #1. Acute hypoxic respiratory failure related to acute septic shock and subsequent brief cardiac arrest. Patient was intubated and placed on mechanical ventilator on 10/20/2021 in the intensive care unit, chest x-ray shows minimal patchy atelectasis, no clear evidence of aspiration. #2. MSSA bacteremia, initially covered with cefepime and vancomycin, currently on nafcillin #3. History of endocarditis and the last ANNABELLE on 10/05/2021 did not show any evidence of vegetation. The source is most likely the right femoral hemodialysis catheter however this is the only vascular access right now #4. Acute cardiac arrest/asystole requiring CPR for about 2-3 minutes with return of spontaneous circulation, suspect related to acute on chronic kidney failure, and acute hyperkalemia #5. Hypotension related to sepsis, recovered and patient is currently off vasopressor support #6. End-stage renal disease on hemodialysis on Friday. He was dialyzed on 10/21/2021 #7. Severe peripheral vascular disease with history of below the knee application on the right #8. Pulmonary embolism, status post EKOS, on maintenance dose Eliquis 2.5 mg twice daily #9. Diabetes mellitus type 2 on insulin pump on an outpatient basis #10. Troponin leak secondary to oxygen mismatch in the setting of acute sepsis #11. Hyperlipidemia #12. Peripheral neuropathy due to diabetes mellitus #13. Chronic anemia #14. Preserved LV systolic function with ejection fraction of 85-60% along with severe pulmonary hypertension #15. Suspect underlying encephalopathy secondary to prolonged hypotension and cardiac arrest Plan: Chest x-ray, labs and ABGs reviewed Continue with current vent settings, FiO2 has been dropped down to 50% Continue weaning FiO2 to keep O2 sats is at or above 90% Hemodynamically patient is stable, not requiring any vasopressor support Antibiotics per ID service recommendations, patient had MSSA bacteremia, antibiotics have been switched over to nafcillin Anticipate another hemodialysis session today Continue tube feedings for nutritional support Daily labs, ABGs, chest x-ray Continue oral anticoagulation Overall prognosis is guarded I performed a history & physical examination of the patient and discussed their management with my nurse practitioner, Samantha Mccormick. I reviewed the nurse practitioner's note and agree with the documented findings and plan of care. Lung sounds are positive for diminished breath sounds throughout the lung martinez . The findings and the impression was discussed with the patient. I attest to the documentation by the nurse practitioner. Time with Patient: Greater than 30
[2021-10-22] MEDS: SODIUM CHLORIDE 0.9% 1,000 ML IV SCH (13:51)
[2021-10-22 15:24] LABS: Glucose,Whole Blood 96 mg/dL (75-99)
[2021-10-22 15:24] LABS: Glucose,Whole Blood 124 mg/dL (75-99)
[2021-10-22 17:51] LABS: Anisocytosis Slight; HGB 8.1 gm/dL (13.0-17.5); Hypochromasia Slight; MCH 30.7 pg (25.0-35.0); MCHC 32.3 g/dL (31.0-37.0); Macrocytosis Slight; Mean Platelet Volume 12.5; Poikilocytosis Slight; RBC 2.63 m/uL (4.30-5.90); RDW 18.4 % (11.5-15.5); WBC 11.7 k/uL (3.8-10.6)
[2021-10-22 17:52] LABS: Platelet Count 91 k/uL (150-450)
[2021-10-22 17:58] LABS: Calcium 8.1 mg/dL (8.4-10.2); Potassium 4.9 mmol/L (3.5-5.1)
[2021-10-22] MEDS ORDERED: VANCOMYCIN 1,500 MG in SODIUM CHLORIDE 0.9% 250 ML IVPB ONE (18:00)
[2021-10-22 19:58] LABS: Glucose,Whole Blood 168 mg/dL (75-99)
--- NOTE | 2021-10-22 20:03 | PN ---
PROGRESS NOTE Mr. Bill's overall clinical condition is quite poor. He has had multiple pulmonary emboli, arterial thromboses. He is very poorly overall. He is in respiratory failure. Prognosis remains quite poor for this patient. He has been seen by Dr. Lassiter from a critical care standpoint. He is intubated, sedated, pretty much ventilator- dependent. X-ray shows patchy airspace disease suggestive of pneumonia in the right lung. Overall prognosis seems to be quite poor for this patient. He is in a sinus rhythm at 73 beats per minute. Blood pressure is 108/70. S1-S2 heard normally. Short systolic murmur noted. Lungs reveal ventilator-assisted breath sounds. Abdomen is soft. Rest of physical exam is unchanged. Patient's overall prognosis seems poor. I have no new specific suggestions at this time. Echo revealed that his ejection fraction was in the 40% to 45% range with moderate to severe pulmonary hypertension. Prognosis remains poor. MMODL / IJN: [id number] /
--- NOTE | 2021-10-22 22:09 | PN ---
PROGRESS NOTE DATE OF SERVICE: 10/22/2021 REASON FOR FOLLOWUP: MSSA sepsis, most likely . INTERVAL HISTORY: Patient is afebrile. The patient remains to be intubated on the vent. FiO2 is currently down to 50%. No significant purulent secretions in the ET, diarrhea or any other changes reported by nursing staff. PHYSICAL EXAMINATION: Blood pressure 136/71, pulse 76. Temperature 98.7. He is 97% on 50% FiO2. General description is a middle-aged male intubated on the vent. Respiratory system: Unlabored breathing, decreased intensity of breath sounds. No wheeze. Heart S1, S2. Regular rate and rhythm. Abdomen: Soft. No tenderness. LABS: Hemoglobin 8.1, white count 11.7, creatinine 4.44. Blood culture repeat 10/21 has been negative so far. DIAGNOSTIC IMPRESSION AND PLAN: Patient with MSSA bacteremia. High clinical suspicion for dialysis catheter infection in this patient who did have a history of recurrent MSSA bacteremia secondary to Perm-A Cath. discontinued. The patient's sputum has been negative. Antibiotic was switched over to and monitor clinical course closely. MMODL / IJN: [id number] /
[2021-10-22 23:59] LABS: Glucose,Whole Blood 173 mg/dL (75-99)
[2021-10-23] MEDS: NAFCILLIN 2 GM in DEXTROSE 5% IN WATER 100 ML IVPB SCH ×14 (00:05→23:36)
[2021-10-23] MEDS: INSULIN ASPART (NovoLOG) 100 UNIT/ML VIAL SQ SCH ×7 (00:06→23:36)
[2021-10-23] MEDS: IPRATROPIUM-ALBUTEROL 3 ML NEB INHALATION SCH ×6 (00:18→20:21)
[2021-10-23 03:58] LABS: Glucose,Whole Blood 137 mg/dL (75-99)
[2021-10-23 05:52] LABS: ABG Base Excess 7.6 mmol/L; ABG HCO3 31 mmol/L (21-25); ABG Oxygen Saturation 94.8 % (94-97); ABG PCO2 38 mmHg (35-45); ABG PH 7.52 (7.35-7.45); ABG PO2 72 mmHg (83-108); ABG TCO2 32 mmol/L (19-24); Allen Test Performed? Yes
[2021-10-23 06:26] LABS: Albumin 2.4 g/dL (3.5-5.0); Calcium 7.3 mg/dL (8.4-10.2); Potassium 3.6 mmol/L (3.5-5.1); Total Bilirubin 4.9 mg/dL (0.2-1.3); Total Protein 5.2 g/dL (6.3-8.2)
[2021-10-23 06:28] LABS: Anisocytosis Slight; Basophils % (A) 0 %; Eosinophils # (A) 0.2 k/uL (0-0.7); Eosinophils % (A) 3 %; HCT 25.1 % (39.0-53.0); HGB 8.1 gm/dL (13.0-17.5); Hypochromasia Slight; Lymphocytes # (A) 1.4 k/uL (1.0-4.8); Lymphocytes % (A) 18 %; MCH 31.4 pg (25.0-35.0); MCHC 32.2 g/dL (31.0-37.0); MCV 97.5 fL (80.0-100.0); Macrocytosis Slight; Mean Platelet Volume 13.4; Monocytes # (A) 0.3 k/uL (0-1.0); Monocytes % (A) 4 %; Neutrophils # (A) 5.3 k/uL (1.3-7.7); Neutrophils % (A) 71 %; Poikilocytosis Slight; RBC 2.57 m/uL (4.30-5.90); RDW 18.6 % (11.5-15.5); WBC 7.4 k/uL (3.8-10.6)
[2021-10-23] MEDS: INSULIN DETEMIR (LEVEMIR) 100 UNIT/ML SYR SQ SCH ×2 (06:43→20:33)
[2021-10-23] MEDS: PANTOPRAZOLE 40 MG TABLET PO SCH (06:43)
[2021-10-23 07:47] LABS: Platelet Count 102 k/uL (150-450)
[2021-10-23 07:59] LABS: Glucose,Whole Blood 118 mg/dL (75-99)
[2021-10-23] MEDS: APIXABAN 2.5 MG TABLET PO SCH ×2 (08:00→20:33)
[2021-10-23] MEDS: CHLORHEXIDINE GLUCONATE 15 ML CUP MUCOUS MEM SCH ×2 (08:00→20:33)
[2021-10-23] MEDS: MIDODRINE 5 MG TAB PO SCH ×3 (08:01→22:02)
--- NOTE | 2021-10-23 08:34 | XR ---
EXAMINATION TYPE: XR chest 1V portable DATE OF EXAM: 10/23/2021 COMPARISON: Chest x-ray 10/22/2021 HISTORY: Intubated TECHNIQUE: Single frontal view of the chest is obtained. FINDINGS: Endotracheal tube is approximately 1 cm from the level the cristi. NG tube is overlying ap propriate position, distal tip not included on exam. Patient is again rotated, lung volumes are low. There are overlying artifacts. Left jugular central venous catheter shows the distal tip in the right atrium. Airspace disease is suspected bilaterally. There is no evident pneumothorax, difficult to ex clude small effusions. Cardiac mediastinal silhouette shows a similar appearance. IMPRESSION: Correlate for pneumonia, edema, exam is expiratory and rotated. ET tube as described, ad ditional findings above.
[2021-10-23] MEDS: ASPIRIN 81 MG PO SCH (09:09)
--- NOTE | 2021-10-23 09:21 | P.PN ---
Subjective Patient is seen in follow-up for end-stage renal disease. He is maintained on hemodialysis on Friday schedule. Off vasopressors. Intubated. Tolerating dialysis well. Hemoglobin improved post blood transfusion. Vital signs stable. HEENT: Intubated. LUNGS: Breath sounds decreased. HEART: Rate and Rhythm are regular. ABDOMEN: Soft, obese. EXTREMITITES: Right BKA. No drainage noted from the femoral catheter. Objective - Vital Signs Vital signs: Vital Signs Temp 99.0 F 10/23/21 08:00 Pulse 83 10/23/21 09:00 Resp 30 H 10/23/21 09:00 BP 116/64 10/23/21 09:00 Pulse Ox 99 10/23/21 09:00 Intake & Output 10/22/21 10/23/21 10/23/21 18:59 06:59 18:59 Intake Total 747.754 892.517 299.900 Output Total 530 50 20 Balance 217.754 842.517 279.900 Weight 109.2 kg 110 kg Intake: IV 10 300 120 .9 kvo 10 0 20 Nafcillin 2 gm In 300 100 Dextrose 5% in Water 100 ml @ 50 mls/hr IVPB Q4HR [facility] Rx#:[id number] Intake, IV Titration 126.754 162.517 81.900 Amount propofoL 1,000 mg In 126.754 162.517 81.900 Empty Bag 1 bag @ Titrate IV .Q0M [facility] Rx#: [id number] Tube Feeding 34 340 68 Blood Product 277 Rc Pheresis 2 As3 Unit 277 [id number] Hemodialysis 300 Other 90 30 Output: Urine 140 50 20 Hemodialysis 390 Other: Voiding Method Indwelling Catheter Indwelling Catheter ABP, PAP, CO, CI - Last Documented Arterial Blood Pressure 95/57 - Labs CBC & Chem 7: 10/23/21 05:33 10/23/21 05:33 Labs: Abnormal Lab Results - Last 24 Hours (Table) 10/22/21 10/22/21 10/22/21 Range/Units 10:07 11:24 15:22 WBC (3.8-10.6) k/uL RBC (4.30-5.90) m/uL Hgb (13.0-17.5) gm/dL Hct (39.0-53.0) % RDW (11.5-15.5) % Plt Count (150-450) k/uL ABG pH (7.35-7.45) ABG pO2 (83-108) mmHg ABG HCO3 (21-25) mmol/L ABG Total CO2 (19-24) mmol/L BUN (9-20) mg/dL Creatinine (0.66-1.25) mg/dL Glucose (74-99) mg/dL POC Glucose (mg/dL) 168 H 124 H (75-99) mg/dL Calcium (8.4-10.2) mg/dL Total Bilirubin (0.2-1.3) mg/dL AST (17-59) U/L ALT (4-49) U/L Alkaline Phosphatase (38-126) U/L Total Protein (6.3-8.2) g/dL Albumin (3.5-5.0) g/dL Crossmatch See Detail 10/22/21 10/22/21 10/22/21 Range/Units 17:29 17:29 19:56 WBC 11.7 H (3.8-10.6) k/uL RBC 2.63 L (4.30-5.90) m/uL Hgb 8.1 L (13.0-17.5) gm/dL Hct 25.0 L (39.0-53.0) % RDW 18.4 H (11.5-15.5) % Plt Count 91 L (150-450) k/uL ABG pH (7.35-7.45) ABG pO2 (83-108) mmHg ABG HCO3 (21-25) mmol/L ABG Total CO2 (19-24) mmol/L BUN 48 H (9-20) mg/dL Creatinine 4.44 H (0.66-1.25) mg/dL Glucose 152 H (74-99) mg/dL POC Glucose (mg/dL) 168 H (75-99) mg/dL Calcium 8.1 L (8.4-10.2) mg/dL Total Bilirubin (0.2-1.3) mg/dL AST (17-59) U/L ALT (4-49) U/L Alkaline Phosphatase (38-126) U/L Total Protein (6.3-8.2) g/dL Albumin (3.5-5.0) g/dL Crossmatch 10/22/21 10/23/21 10/23/21 Range/Units 23:57 03:56 05:33 WBC (3.8-10.6) k/uL RBC 2.57 L (4.30-5.90) m/uL Hgb 8.1 L (13.0-17.5) gm/dL Hct 25.1 L (39.0-53.0) % RDW 18.6 H (11.5-15.5) % Plt Count 102 L (150-450) k/uL ABG pH (7.35-7.45) ABG pO2 (83-108) mmHg ABG HCO3 (21-25) mmol/L ABG Total CO2 (19-24) mmol/L BUN (9-20) mg/dL Creatinine (0.66-1.25) mg/dL Glucose (74-99) mg/dL POC Glucose (mg/dL) 173 H 137 H (75-99) mg/dL Calcium (8.4-10.2) mg/dL Total Bilirubin (0.2-1.3) mg/dL AST (17-59) U/L ALT (4-49) U/L Alkaline Phosphatase (38-126) U/L Total Protein (6.3-8.2) g/dL Albumin (3.5-5.0) g/dL Crossmatch 10/23/21 10/23/21 10/23/21 Range/Units 05:33 05:50 07:57 WBC (3.8-10.6) k/uL RBC (4.30-5.90) m/uL Hgb (13.0-17.5) gm/dL Hct (39.0-53.0) % RDW (11.5-15.5) % Plt Count (150-450) k/uL ABG pH 7.52 H (7.35-7.45) ABG pO2 72 L (83-108) mmHg ABG HCO3 31 H (21-25) mmol/L ABG Total CO2 32 H (19-24) mmol/L BUN 53 H (9-20) mg/dL Creatinine 5.20 H (0.66-1.25) mg/dL Glucose 130 H (74-99) mg/dL POC Glucose (mg/dL) 118 H (75-99) mg/dL Calcium 7.3 L (8.4-10.2) mg/dL Total Bilirubin 4.9 H (0.2-1.3) mg/dL AST 316 H (17-59) U/L ALT 208 H (4-49) U/L Alkaline Phosphatase 528 H (38-126) U/L Total Protein 5.2 L (6.3-8.2) g/dL Albumin 2.4 L (3.5-5.0) g/dL Crossmatch Microbiology - Last 24 Hours (Table) 10/21/21 21:24 Gram Stain - Preliminary Gastric Aspirate Sputum Culture - Preliminary 10/21/21 09:15 Blood Culture - Preliminary Blood No Growth after 24 hours Assessment and Plan Plan: Assessment: 1. End-stage renal disease maintained on hemodialysis on Friday schedule via right femoral permacath. 2. Septic shock secondary to staph bacteremia. Possible source permacath versus pneumonia. Also has a nonfunctioning hero graft. 3. Metabolic acidosis secondary to chronic kidney disease and lactic acidosis. Improved. 4. Hyperkalemia secondary to chronic kidney disease. Improved postdialysis. 5. Diabetes mellitus. 6. Anemia of chronic kidney disease. On . Status post blood transfusion on 10/22/2021. Plan: Currently seen while undergoing hemodialysis. Next treatment on . Wean FiO2. Follow-up cultures. Infectious disease following. Patient has very limited vascular access options. Defer to infectious disease regarding need for catheter removal.
--- NOTE | 2021-10-23 09:39 | CDI ---
Documentation Clarification Form Date: 10/23/2021 09:03:01 AM From: Raquel Melgoza RN CCDS Admit Date: 10/18/2021 09:42:00 AM Patient Name: Checo Bill Visit Number: [id number] Discharge Date: ATTENTION: The Clinical Documentation Specialists (CDI) and [facility] Coding Staff appreciate your assistance in clarifying documentation. Please respond to the clarification below the line at the bottom and electronically sign. The CDI & [facility] Coding staff will review the response and follow-up if needed. Please note: Queries are made part of the Legal Health Record. If you have any questions, please contact the author of this message via ITS. Dr. Fermín Aly Elevated troponins, suspect type II mechanism related to sepsis, hypotension. is documented 10/19, Cardiology consult and 10/20 and 10/21 Cardiology progress notes. Additional clarification regarding the Type II mechanism is requested. Patient History/Risk Factors: 50-year-old male presents to the ED via EMS for not acting right. EMS evaluation the patient had increased work of breathing and weak. The patient is on 3L of home oxygen and has SpO2 in the 70s. The patient became unresponsive in ED and was in Cardiopulmonary arrest with successful resuscitation. 10/18, ED Note. Medical History: AKA, DM, ESRD on Hemodialysis, recurrent MSSA of bacteremia recently d/c 08/23 after hemodialysis catheter was changed and a dialysis catheter was placed in right groin. Recent PE with EKOS, 10/18, H&P Clinical Indicators: VSS: 10/18 B/P 86/55, HR 108, Temp 103.1 F Oral, RR 18, SpO2 64% 4L nasal cannula Troponin: 10/18 Troponin 0.188, 0.130, 0.120 EKG Results:10/18 Sinus Tachycardia CXR: 10/18 Perihilar infiltrates Treatment: 10/18 to current ICU admission, 10/18 0.9NS 500cc bolus; 10/19 0.9NS 1L bolus x 1, 10/18 Vancomycin 1,000mg IVPB x1, 10/19 Vancomycin 1,000mg IVPB x 1, 10/20 Vancomycin 1,500mg IVPB x 1; 10/22 Vancomycin 1,500mg IVPB x 1. 10/18 to 10/22 Vasopressin 60 units IV; 10/18 Levaquin 750mg IVPB x 1; 10/18 10/19 Cefepime 1gm IVPB Q12H; 10/19 10/09Cefepime 1gm IVPB Q12H; 10/20 to 10/21 Cefepime 1gm IVPB HS. Can you please clarify the type II mechanism? [ ] Type 2 MN due to Sepsis and hypotension [ ] Type 2 MN due to other (please specify ) [ ] Unable to determine [ ] Other Condition, please specify (Template Last Revised: December 2020) MTDD
--- NOTE | 2021-10-23 11:23 | P.PN ---
Subjective Progress Note Date: 10/23/21 Principal diagnosis: Septic shock On 10/22/2021 patient seen in follow-up in the intensive care unit, he remains intubated, and sedated, currently on volume assist control 1 of ventilation with a rate of 30, tidal lamberts 400, FiO2 50% and PEEP of 5, this morning's blood gas shows pO2 of 103, pCO2 34, pH is 7.54 this was done and FiO2 of 65%. Today's chest x-ray has been reviewed showing no evident pneumothorax or pleural effusion, patchy airspace disease persistence in the right lung with volume loss, low lung volumes. He is currently on Diprivan at 25 mics per kilo per minute, no other drips. His on tube feedings with vital AF at a rate of 34 with a goal of 34 in standard water flushes, patient had a hemodialysis treatment yesterday on 10/21/2021 with removal of 1 L of fluid, he is planning to have another hemodialysis session today. Today's labs have been reviewed, his white blood cell count continues to improve and is down to 12.6 on today's labs, hemoglobin is down to 6.1, and patient is supposed to have one unit of packed red blood cells transfused this morning, his last INR from 10/20/2021 was 1.3, sodium is 141, attest him is 3.4, chloride is 101, CO2 is 28, anion gap was 12, BUN is 56, creatinine is 5.68, renal function has significantly improved since admission. His liver enzymes were up trending still on yesterday's labs, and AST was 640, ALT was 245, and alkaline phosphatase was up to 257. Patient tested negative for COVID-19, was found to be bacteremic with evidence of MSSA in his blood cultures. His last set of blood cultures on 10/21/2021 had shown no growth thus far, his sputum has been negative thus far. Patient is currently on nafcillin, ID service is following. Vancomycin has been discontinued. Patient continues on Eliquis 2.5 mg twice daily for history of pulmonary embolism. Hemodynamically patient is stable. Low-grade fevers overnight, but overall more stable. On 10/23/2021 patient seen in follow-up in intensive care unit, he remains intubated, and sedated, on volume assist control mode of ventilation with a rate of 30, tidal volume is 400, FiO2 50% and PEEP of 5. This point shows pO2 of 72, pCO2 of 38, and pH of 7.52. Today's chest x-ray showing ET tube 1 cm above the cristi, NG tube in the appropriate position, low lung volumes, left jugular central venous catheter with the distal tip in the right atrium, airspace disease bilaterally, no evidence of pneumothorax, small effusions more difficult to exclude. Vital signs have been stable overnight, not requiring any vasopressor support, afebrile. Patient is currently on 0.9 normal saline at a rate of 20 ML per hour, Diprivan is currently at 35 mics per kilo per minute. He remains on maintenance dose Eliquis 2.5 mg twice daily for history of p ulmonary emboli, he remains on nafcillin for MSSA in the blood cultures, follow- up blood cultures so far showing no growth, gastric aspirate culture was also sent for some reason, showing rare PMNs, rare budding yeast and rare gram- positive cocci. Today's blood work has been reviewed, a cytosis continues to improve and is within normal limits today, white blood cell count 7.4, hemoglobin is 8.1, platelet count continues to improve and is up to 102, sodium is 138, potassium is 3.6, chloride is 100, CO2 is 27, BUN is 53, creatinine is 5.2, his LFTs were reviewed, and AST and ALT are improving, but alkaline phosphatase has increased to 528. Patient received 1 unit of packed red blood cells yesterday for hemoglobin of 7.2 with hemodialysis. Patient had hemodialysis yesterday with removal of 390 mL of fluid, is having another hemodialysis session with a goal of removing 1 L and fluid. Had no acute events overnight. Pereira catheter is in place, and he is producing about 10-20 mL an hour. Objective - Vital Signs Vital signs: Vital Signs Temp 99.0 F 10/23/21 08:00 Pulse 78 10/23/21 10:00 Resp 30 H 10/23/21 10:00 BP 133/68 10/23/21 10:00 Pulse Ox 97 10/23/21 10:00 Intake & Output 10/22/21 10/23/21 10/23/21 18:59 06:59 18:59 Intake Total 747.754 892.517 381.095 Output Total 530 50 20 Balance 217.754 842.517 361.095 Weight 109.2 kg 110 kg Intake: IV 10 300 160 .9 kvo 10 0 60 Nafcillin 2 gm In 300 100 Dextrose 5% in Water 100 ml @ 50 mls/hr IVPB Q4HR [facility] Rx#:[id number] Intake, IV Titration 126.754 162.517 123.095 Amount propofoL 1,000 mg In 126.754 162.517 123.095 Empty Bag 1 bag @ Titrate IV .Q0M [facility] Rx#: [id number] Tube Feeding 34 340 68 Blood Product 277 Rc Pheresis 2 As3 Unit 277 [id number] Hemodialysis 300 Other 90 30 Output: Urine 140 50 20 Hemodialysis 390 Other: Voiding Method Indwelling Catheter Indwelling Catheter ABP, PAP, CO, CI - Last Documented Arterial Blood Pressure 95/57 - Exam GENERAL EXAM: Sedated, intubated, 46-year-old male on volume assist control mode of ventilation with a rate of 30, tidal volume is 400, FiO2 of 50% and PEEP of 5 comfortable in no apparent distress. HEAD: Normocephalic/atraumatic. EYES: Normal reaction of pupils, equal size. Conjunctiva pink, sclera white. NOSE: Clear with pink turbinates. THROAT: No erythema or exudates. NECK: No masses, no JVD, no thyroid enlargement, no adenopathy. CHEST: No chest wall deformity. Symmetrical expansion. Healed incision in the left upper chest from previous Hero catheter in the left subclavian LUNGS: Equal air entry with no crackles, wheeze, rhonchi or dullness. CVS: Regular rate and rhythm, normal S1 and S2, no gallops, no murmurs, no rubs ABDOMEN: Soft, nontender. No hepatosplenomegaly, normal bowel sounds, no guarding or rigidity. EXTREMITIES: No clubbing, no edema, no cyanosis, 2+ pulses and upper and lower extremities. MUSCULOSKELETAL: Muscle strength and tone normal. Right below the knee amputation, right femoral hemodialysis catheter is in place SPINE: No scoliosis or deformity SKIN: No rashes CENTRAL NERVOUS SYSTEM: Sedated and intubated No focal deficits, tone is normal in all 4 extremities. - Labs CBC & Chem 7: 10/23/21 05:33 10/23/21 05:33 Labs: Abnormal Lab Results - Last 24 Hours (Table) 10/22/21 10/22/21 10/22/21 Range/Units 10:07 11:24 15:22 WBC (3.8-10.6) k/uL RBC (4.30-5.90) m/uL Hgb (13.0-17.5) gm/dL Hct (39.0-53.0) % RDW (11.5-15.5) % Plt Count (150-450) k/uL ABG pH (7.35-7.45) ABG pO2 (83-108) mmHg ABG HCO3 (21-25) mmol/L ABG Total CO2 (19-24) mmol/L BUN (9-20) mg/dL Creatinine (0.66-1.25) mg/dL Glucose (74-99) mg/dL POC Glucose (mg/dL) 168 H 124 H (75-99) mg/dL Calcium (8.4-10.2) mg/dL Total Bilirubin (0.2-1.3) mg/dL AST (17-59) U/L ALT (4-49) U/L Alkaline Phosphatase (38-126) U/L Total Protein (6.3-8.2) g/dL Albumin (3.5-5.0) g/dL Crossmatch See Detail 10/22/21 10/22/21 10/22/21 Range/Units 17:29 17:29 19:56 WBC 11.7 H (3.8-10.6) k/uL RBC 2.63 L (4.30-5.90) m/uL Hgb 8.1 L (13.0-17.5) gm/dL Hct 25.0 L (39.0-53.0) % RDW 18.4 H (11.5-15.5) % Plt Count 91 L (150-450) k/uL ABG pH (7.35-7.45) ABG pO2 (83-108) mmHg ABG HCO3 (21-25) mmol/L ABG Total CO2 (19-24) mmol/L BUN 48 H (9-20) mg/dL Creatinine 4.44 H (0.66-1.25) mg/dL Glucose 152 H (74-99) mg/dL POC Glucose (mg/dL) 168 H (75-99) mg/dL Calcium 8.1 L (8.4-10.2) mg/dL Total Bilirubin (0.2-1.3) mg/dL AST (17-59) U/L ALT (4-49) U/L Alkaline Phosphatase (38-126) U/L Total Protein (6.3-8.2) g/dL Albumin (3.5-5.0) g/dL Crossmatch 10/22/21 10/23/21 10/23/21 Range/Units 23:57 03:56 05:33 WBC (3.8-10.6) k/uL RBC 2.57 L (4.30-5.90) m/uL Hgb 8.1 L (13.0-17.5) gm/dL Hct 25.1 L (39.0-53.0) % RDW 18.6 H (11.5-15.5) % Plt Count 102 L (150-450) k/uL ABG pH (7.35-7.45) ABG pO2 (83-108) mmHg ABG HCO3 (21-25) mmol/L ABG Total CO2 (19-24) mmol/L BUN (9-20) mg/dL Creatinine (0.66-1.25) mg/dL Glucose (74-99) mg/dL POC Glucose (mg/dL) 173 H 137 H (75-99) mg/dL Calcium (8.4-10.2) mg/dL Total Bilirubin (0.2-1.3) mg/dL AST (17-59) U/L ALT (4-49) U/L Alkaline Phosphatase (38-126) U/L Total Protein (6.3-8.2) g/dL Albumin (3.5-5.0) g/dL Crossmatch 10/23/21 10/23/21 10/23/21 Range/Units 05:33 05:50 07:57 WBC (3.8-10.6) k/uL RBC (4.30-5.90) m/uL Hgb (13.0-17.5) gm/dL Hct (39.0-53.0) % RDW (11.5-15.5) % Plt Count (150-450) k/uL ABG pH 7.52 H (7.35-7.45) ABG pO2 72 L (83-108) mmHg ABG HCO3 31 H (21-25) mmol/L ABG Total CO2 32 H (19-24) mmol/L BUN 53 H (9-20) mg/dL Creatinine 5.20 H (0.66-1.25) mg/dL Glucose 130 H (74-99) mg/dL POC Glucose (mg/dL) 118 H (75-99) mg/dL Calcium 7.3 L (8.4-10.2) mg/dL Total Bilirubin 4.9 H (0.2-1.3) mg/dL AST 316 H (17-59) U/L ALT 208 H (4-49) U/L Alkaline Phosphatase 528 H (38-126) U/L Total Protein 5.2 L (6.3-8.2) g/dL Albumin 2.4 L (3.5-5.0) g/dL Crossmatch Microbiology - Last 24 Hours (Table) 10/22/21 06:00 Blood Culture - Preliminary Blood No Growth after 24 hours 10/21/21 21:24 Gram Stain - Preliminary Gastric Aspirate Sputum Culture - Preliminary 10/21/21 09:15 Blood Culture - Preliminary Blood No Growth after 24 hours Assessment and Plan Plan: Assessment: #1. Acute hypoxic respiratory failure related to acute septic shock and subsequent brief cardiac arrest. Patient was intubated and placed on mechanical ventilator on 10/20/2021 in the intensive care unit, chest x-ray shows minimal patchy atelectasis, no clear evidence of aspiration. #2. MSSA bacteremia, initially covered with cefepime and vancomycin, currently on nafcillin #3. History of endocarditis and the last ANNABELLE on 10/05/2021 did not show any evidence of vegetation. The source is most likely the right femoral hemodialysis catheter however this is the only vascular access right now #4. Acute cardiac arrest/asystole requiring CPR for about 2-3 minutes with return of spontaneous circulation, suspect related to acute on chronic kidney failure, and acute hyperkalemia #5. Hypotension related to sepsis, recovered and patient is currently off vasopressor support #6. End-stage renal disease on hemodialysis on Friday. He was dialyzed on 10/21/2021 #7. Severe peripheral vascular disease with history of below the knee application on the right #8. Pulmonary embolism, status post EKOS, on maintenance dose Eliquis 2.5 mg twice daily #9. Diabetes mellitus type 2 on insulin pump on an outpatient basis #10. Troponin leak secondary to oxygen mismatch in the setting of acute sepsis #11. Hyperlipidemia #12. Peripheral neuropathy due to diabetes mellitus #13. Chronic anemia #14. Preserved LV systolic function with ejection fraction of 55-60% along with severe pulmonary hypertension #15. Suspect underlying encephalopathy secondary to prolonged hypotension and cardiac arrest Plan: Chest x-ray, labs and ABGs reviewed Continue with current vent settings, FiO2 has remained at 50%, and PEEP is 5 Hemodynamically remained stable, not requiring any vasopressor support Currently the antibiotic coverage as nafcillin for MSSA bacteremia Follow-up blood cultures remain negative thus far Today's blood work has been reviewed leukocytosis continues to improve No fever Vital signs are stable Continue to feedings for nutritional support Continue oral anticoagulation Another hemodialysis session today with removal of 1 L of fluid Continue close monitoring in the intensive care unit After hemodialysis will wake up the patient and attempt spontaneous breathing trial I performed a history & physical examination of the patient and discussed their management with my nurse practitioner, Samantha Mccormick. I reviewed the nurse practitioner's note and agree with the documented findings and plan of care. Lung sounds are positive for diminished breath sounds throughout the lung martinez. The findings and the impression was discussed with the patient. I attest to the documentation by the nurse practitioner. Time with Patient: Greater than 30
[2021-10-23 11:31] LABS: Glucose,Whole Blood 121 mg/dL (75-99)
--- NOTE | 2021-10-23 11:42 | P.PN ---
Subjective Progress Note Date: 10/23/21 No new complaints today. Pt is weaning off of sedation, near extubation per nursing today. Objective - Vital Signs Vital signs: Vital Signs Temp 99.0 F 10/23/21 08:00 Pulse 76 10/23/21 11:00 Resp 31 H 10/23/21 11:00 BP 121/62 10/23/21 11:00 Pulse Ox 95 10/23/21 11:00 Intake & Output 10/22/21 10/23/21 10/23/21 18:59 06:59 18:59 Intake Total 747.754 892.517 381.095 Output Total 530 50 20 Balance 217.754 842.517 361.095 Weight 109.2 kg 110 kg Intake: IV 10 300 160 .9 kvo 10 0 60 Nafcillin 2 gm In 300 100 Dextrose 5% in Water 100 ml @ 50 mls/hr IVPB Q4HR G[facility]Y Rx#:[id number] Intake, IV Titration 126.754 162.517 123.095 Amount propofoL 1,000 mg In 126.754 162.517 123.095 Empty Bag 1 bag @ Titrate IV .Q0M GABY Rx#: [id number] Tube Feeding 34 340 68 Blood Product 277 Rc Pheresis 2 As3 Unit 277 [id number] Hemodialysis 300 Other 90 30 Output: Urine 140 50 20 Hemodialysis 390 Other: Voiding Method Indwelling Catheter Indwelling Catheter ABP, PAP, CO, CI - Last Documented Arterial Blood Pressure 95/57 - Exam Gen: intubated, sedated HEENT: normocephalic, atraumatic, Resp: vent: AC 400, FiO2 50%, PEEP 5 CVS: good distal perfusion x 4, : no SPT, no CVAT, loaiza catheter is present MSK: bilateral pitting edema, no clubbing Neuro: non-focal, moving all extremities - Labs CBC & Chem 7: 10/23/21 05:33 10/23/21 05:33 Labs: Abnormal Lab Results - Last 24 Hours (Table) 10/22/21 10/22/21 10/22/21 Range/Units 10:07 15:22 17:29 WBC 11.7 H (3.8-10.6) k/uL RBC 2.63 L (4.30-5.90) m/uL Hgb 8.1 L (13.0-17.5) gm/dL Hct 25.0 L (39.0-53.0) % RDW 18.4 H (11.5-15.5) % Plt Count 91 L (150-450) k/uL ABG pH (7.35-7.45) ABG pO2 (83-108) mmHg ABG HCO3 (21-25) mmol/L ABG Total CO2 (19-24) mmol/L BUN (9-20) mg/dL Creatinine (0.66-1.25) mg/dL Glucose (74-99) mg/dL POC Glucose (mg/dL) 124 H (75-99) mg/dL Calcium (8.4-10.2) mg/dL Total Bilirubin (0.2-1.3) mg/dL AST (17-59) U/L ALT (4-49) U/L Alkaline Phosphatase (38-126) U/L Total Protein (6.3-8.2) g/dL Albumin (3.5-5.0) g/dL Crossmatch See Detail 10/22/21 10/22/21 10/22/21 Range/Units 17:29 19:56 23:57 WBC (3.8-10.6) k/uL RBC (4.30-5.90) m/uL Hgb (13.0-17.5) gm/dL Hct (39.0-53.0) % RDW (11.5-15.5) % Plt Count (150-450) k/uL ABG pH (7.35-7.45) ABG pO2 (83-108) mmHg ABG HCO3 (21-25) mmol/L ABG Total CO2 (19-24) mmol/L BUN 48 H (9-20) mg/dL Creatinine 4.44 H (0.66-1.25) mg/dL Glucose 152 H (74-99) mg/dL POC Glucose (mg/dL) 168 H 173 H (75-99) mg/dL Calcium 8.1 L (8.4-10.2) mg/dL Total Bilirubin (0.2-1.3) mg/dL AST (17-59) U/L ALT (4-49) U/L Alkaline Phosphatase (38-126) U/L Total Protein (6.3-8.2) g/dL Albumin (3.5-5.0) g/dL Crossmatch 10/23/21 10/23/21 10/23/21 Range/Units 03:56 05:33 05:33 WBC (3.8-10.6) k/uL RBC 2.57 L (4.30-5.90) m/uL Hgb 8.1 L (13.0-17.5) gm/dL Hct 25.1 L (39.0-53.0) % RDW 18.6 H (11.5-15.5) % Plt Count 102 L (150-450) k/uL ABG pH (7.35-7.45) ABG pO2 (83-108) mmHg ABG HCO3 (21-25) mmol/L ABG Total CO2 (19-24) mmol/L BUN 53 H (9-20) mg/dL Creatinine 5.20 H (0.66-1.25) mg/dL Glucose 130 H (74-99) mg/dL POC Glucose (mg/dL) 137 H (75-99) mg/dL Calcium 7.3 L (8.4-10.2) mg/dL Total Bilirubin 4.9 H (0.2-1.3) mg/dL AST 316 H (17-59) U/L ALT 208 H (4-49) U/L Alkaline Phosphatase 528 H (38-126) U/L Total Protein 5.2 L (6.3-8.2) g/dL Albumin 2.4 L (3.5-5.0) g/dL Crossmatch 10/23/21 10/23/21 10/23/21 Range/Units 05:50 07:57 11:29 WBC (3.8-10.6) k/uL RBC (4.30-5.90) m/uL Hgb (13.0-17.5) gm/dL Hct (39.0-53.0) % RDW (11.5-15.5) % Plt Count (150-450) k/uL ABG pH 7.52 H (7.35-7.45) ABG pO2 72 L (83-108) mmHg ABG HCO3 31 H (21-25) mmol/L ABG Total CO2 32 H (19-24) mmol/L BUN (9-20) mg/dL Creatinine (0.66-1.25) mg/dL Glucose (74-99) mg/dL POC Glucose (mg/dL) 118 H 121 H (75-99) mg/dL Calcium (8.4-10.2) mg/dL Total Bilirubin (0.2-1.3) mg/dL AST (17-59) U/L ALT (4-49) U/L Alkaline Phosphatase (38-126) U/L Total Protein (6.3-8.2) g/dL Albumin (3.5-5.0) g/dL Crossmatch Microbiology - Last 24 Hours (Table) 10/22/21 06:00 Blood Culture - Preliminary Blood No Growth after 24 hours 10/21/21 21:24 Gram Stain - Preliminary Gastric Aspirate Sputum Culture - Preliminary 10/21/21 09:15 Blood Culture - Preliminary Blood No Growth after 24 hours Assessment and Plan Assessment: MSSA bacteremia Septic shock Lactic acidosis Acute hypoxic respiratory failure Asystole arrest with Rosc Acute encephalopathy, metabolic and secondary to infection line-await infectious disease recommendations - completed cefazolin 9 days prior to admission -Continue with Vanco and cefepime -IV fluids -Await repeat blood cultures -Vent management per pulmonary - Recent ANNABELLE and TTE without vegetations - ID recs, Naficillin End-stage renal disease on hemodialysis-T//Fri Anemia of chronic renal disease Hyperkalemia Metabolic acidosis - HD today with 1 unit pRBC - D/W Nephrology Diabetes mellitus type 2 Maintained on insulin pump as an outpatient - accucehck - Levemire and SSI -Hopefully improving glycemic control will improve his acidosis and hyperkalemia -Hemoglobin A1c 7.2 on 08/16/21 Elevated troponin -Likely reflective of end-stage renal disease -Cardiology recommendations appreciated Thromobocytopenia - likely reactive - follow CBC Chronic Pulmonary Embolsim with hx of Massive pulmonary embolism treated with EKOS 7 months ago - Rashidaqukrissy GERD - PPI Dyslipidemia - not chronically on meds Seizure disorder DVT prophylaxis: reid Discussed with: patient, nursing, son Anticipated discharge date: undetermined Anticipated discharge place: undetermined
--- NOTE | 2021-10-23 13:04 | PN ---
PROGRESS NOTE Mr. Bill is in sinus rhythm. He is on apixaban. He has is going to probably be weaned off the ventilator today. He has history of pulmonary embolism, DVT and also has had a difficult time with access. He is a patient with end-stage renal disease on hemodialysis. Dialysis is in progress. His blood pressure is acceptable. He is still on a vent. Weaning efforts today. S1, S2 heard normally. Short systolic murmur. Lungs reveal ventilator assisted breaths sounds. Rest of physical exam unchanged. No new suggestions from a cardiac standpoint. MMODL / IJN: [id number] /
[2021-10-23 13:45] VITALS: BMI 47.3
[2021-10-23 16:12] LABS: Glucose,Whole Blood 125 mg/dL (75-99)
[2021-10-23 20:29] LABS: Glucose,Whole Blood 120 mg/dL (75-99)
--- NOTE | 2021-10-23 23:13 | PN ---
PROGRESS NOTE DATE OF SERVICE: 10/23/2021 REASON FOR FOLLOWUP: MSSA bacteremia possibly infection. INTERVAL HISTORY: The patient is afebrile. The patient is hemodynamically stable. FiO2 is currently stable at 50%. No significant purulent secretions through the ET, diarrhea or any other changes reported by nursing staff. PHYSICAL EXAMINATION: Blood pressure 144/75 with a pulse of 73, temperature 98.7. He is 96% on 50% FiO2. General description is a middle-aged male intubated on the vent. Respiratory system: Unlabored breathing, decreased intensity of breath sounds. No wheeze. Heart S1, S2. Regular rate and rhythm. Abdomen soft, no tenderness. LABS: Blood culture repeat has been negative so far. DIAGNOSTIC IMPRESSION AND PLAN: Patient admitted to the hospital with sepsis with evidence of MSSA bacteremia. Source is likely dialysis catheter infection. Sputum has been negative. Patient is covered with nafcillin. Repeat blood culture negative. Will benefit from exchange of his dialysis catheter. Continue supportive care. MMODL / IJN: [id number] /
[2021-10-23 23:29] LABS: Glucose,Whole Blood 146 mg/dL (75-99)
[2021-10-24] MEDS: IPRATROPIUM-ALBUTEROL 3 ML NEB INHALATION SCH ×6 (01:06→21:37)
[2021-10-24 03:51] LABS: Glucose,Whole Blood 176 mg/dL (75-99)
[2021-10-24] MEDS: NAFCILLIN 2 GM in DEXTROSE 5% IN WATER 100 ML IVPB SCH ×10 (03:53→21:17)
[2021-10-24] MEDS: INSULIN ASPART (NovoLOG) 100 UNIT/ML VIAL SQ SCH ×5 (03:54→21:21)
[2021-10-24 05:06] LABS: ABG Base Excess 5.3 mmol/L; ABG HCO3 30 mmol/L (21-25); ABG Oxygen Saturation 85.8 % (94-97); ABG PCO2 47 mmHg (35-45); ABG PH 7.41 (7.35-7.45); ABG TCO2 31 mmol/L (19-24); Allen Test Performed? Yes
[2021-10-24 05:08] LABS: ABG PO2 56 mmHg (83-108)
[2021-10-24 05:50] LABS: Anisocytosis Slight; Basophils % (A) 0 %; Eosinophils # (A) 0.3 k/uL (0-0.7); Eosinophils % (A) 5 %; HCT 26.8 % (39.0-53.0); HGB 8.5 gm/dL (13.0-17.5); Hypochromasia Marked; Lymphocytes # (A) 1.1 k/uL (1.0-4.8); Lymphocytes % (A) 16 %; MCH 31.6 pg (25.0-35.0); MCHC 31.8 g/dL (31.0-37.0); MCV 99.3 fL (80.0-100.0); Macrocytosis Slight; Mean Platelet Volume 12.4; Monocytes # (A) 0.4 k/uL (0-1.0); Monocytes % (A) 5 %; Neutrophils # (A) 4.9 k/uL (1.3-7.7); Neutrophils % (A) 70 %; Poikilocytosis Slight; RDW 18.9 % (11.5-15.5)
[2021-10-24 06:04] LABS: Albumin 2.5 g/dL (3.5-5.0); Calcium 6.9 mg/dL (8.4-10.2); Potassium 4.6 mmol/L (3.5-5.1); Total Bilirubin 5.1 mg/dL (0.2-1.3); Total Protein 5.3 g/dL (6.3-8.2)
[2021-10-24 06:05] LABS: Platelet Count 160 k/uL (150-450)
[2021-10-24] MEDS: PANTOPRAZOLE 40 MG TABLET PO SCH (06:58)
--- NOTE | 2021-10-24 08:58 | P.PN ---
Subjective Patient is seen in follow-up for end-stage renal disease. He is maintained on hemodialysis on Friday schedule. Off vasopressors. Intubated. Tolerated dialysis well yesterday. Vital signs stable. HEENT: Intubated. LUNGS: Breath sounds decreased. HEART: Rate and Rhythm are regular. ABDOMEN: Soft, obese. EXTREMITITES: Right BKA. No drainage noted from the femoral catheter. Objective - Vital Signs Vital signs: Vital Signs Temp 100.3 F H 10/24/21 08:00 Pulse 86 10/24/21 08:00 Resp 31 H 10/24/21 08:00 BP 123/60 10/24/21 08:00 Pulse Ox 95 10/24/21 08:00 Intake & Output 10/23/21 10/24/21 10/24/21 18:59 06:59 18:59 Intake Total 1182.241 760 49 Output Total 1105 140 60 Balance 77.241 620 -11 Weight 110 kg Intake: IV 450 210 10 .9 kvo 150 110 10 Nafcillin 2 gm In 300 100 Dextrose 5% in Water 100 ml @ 50 mls/hr IVPB Q4HR [facility] Rx#:[id number] Intake, IV Titration 259.241 100 Amount propofoL 1,000 mg In 259.241 100 Empty Bag 1 bag @ Titrate IV .Q0M G[facility]Y Rx#: [id number] Tube Feeding 413 390 39 Other 60 60 Output: Urine 105 140 60 Hemodialysis 1000 Other: Voiding Method Indwelling Catheter Indwelling Catheter ABP, PAP, CO, CI - Last Documented Arterial Blood Pressure 95/57 - Labs CBC & Chem 7: 10/24/21 05:27 10/24/21 05:27 Labs: Abnormal Lab Results - Last 24 Hours (Table) 10/23/21 10/23/21 10/23/21 Range/Units 11:29 16:10 20:27 RBC (4.30-5.90) m/uL Hgb (13.0-17.5) gm/dL Hct (39.0-53.0) % RDW (11.5-15.5) % ABG pCO2 (35-45) mmHg ABG pO2 (83-108) mmHg ABG HCO3 (21-25) mmol/L ABG Total CO2 (19-24) mmol/L ABG O2 Saturation (94-97) % Sodium (137-145) mmol/L BUN (9-20) mg/dL Creatinine (0.66-1.25) mg/dL Glucose (74-99) mg/dL POC Glucose (mg/dL) 121 H 125 H 120 H (75-99) mg/dL Calcium (8.4-10.2) mg/dL Total Bilirubin (0.2-1.3) mg/dL AST (17-59) U/L ALT (4-49) U/L Alkaline Phosphatase (38-126) U/L Total Protein (6.3-8.2) g/dL Albumin (3.5-5.0) g/dL 10/23/21 10/24/21 10/24/21 Range/Units 23:27 03:48 05:01 RBC (4.30-5.90) m/uL Hgb (13.0-17.5) gm/dL Hct (39.0-53.0) % RDW (11.5-15.5) % ABG pCO2 47 H (35-45) mmHg ABG pO2 56 L* (83-108) mmHg ABG HCO3 30 H (21-25) mmol/L ABG Total CO2 31 H (19-24) mmol/L ABG O2 Saturation 85.8 L (94-97) % Sodium (137-145) mmol/L BUN (9-20) mg/dL Creatinine (0.66-1.25) mg/dL Glucose (74-99) mg/dL POC Glucose (mg/dL) 146 H 176 H (75-99) mg/dL Calcium (8.4-10.2) mg/dL Total Bilirubin (0.2-1.3) mg/dL AST (17-59) U/L ALT (4-49) U/L Alkaline Phosphatase (38-126) U/L Total Protein (6.3-8.2) g/dL Albumin (3.5-5.0) g/dL 10/24/21 10/24/21 Range/Units 05:27 05:27 RBC 2.70 L (4.30-5.90) m/uL Hgb 8.5 L (13.0-17.5) gm/dL Hct 26.8 L (39.0-53.0) % RDW 18.9 H (11.5-15.5) % ABG pCO2 (35-45) mmHg ABG pO2 (83-108) mmHg ABG HCO3 (21-25) mmol/L ABG Total CO2 (19-24) mmol/L ABG O2 Saturation (94-97) % Sodium 134 L (137-145) mmol/L BUN 57 H (9-20) mg/dL Creatinine 4.87 H (0.66-1.25) mg/dL Glucose 181 H (74-99) mg/dL POC Glucose (mg/dL) (75-99) mg/dL Calcium 6.9 L (8.4-10.2) mg/dL Total Bilirubin 5.1 H (0.2-1.3) mg/dL AST 140 H (17-59) U/L ALT 144 H (4-49) U/L Alkaline Phosphatase 444 H (38-126) U/L Total Protein 5.3 L (6.3-8.2) g/dL Albumin 2.5 L (3.5-5.0) g/dL Microbiology - Last 24 Hours (Table) 10/23/21 05:33 Blood Culture - Preliminary Blood No Growth after 24 hours 10/21/21 09:15 Blood Culture - Preliminary Blood No Growth after 48 hours 10/22/21 06:00 Blood Culture - Preliminary Blood No Growth after 24 hours Assessment and Plan Plan: Assessment: 1. End-stage renal disease maintained on hemodialysis on Friday schedule via right femoral permacath. 2. Septic shock secondary to staph bacteremia. Possible source permacath versus pneumonia. Also has a nonfunctioning hero graft. 3. Metabolic acidosis secondary to chronic kidney disease and lactic acidosis. Improved. 4. Hyperkalemia secondary to chronic kidney disease. Improved postdialysis. 5. Diabetes mellitus. 6. Anemia of chronic kidney disease. On Aranesp. Status post blood transfusion on 10/22/2021. Plan: Hemodialysis tomorrow. Wean FiO2. Follow-up cultures. Infectious disease recommending exchange of dialysis catheter. Consult vascular surgery to see if catheter can be exchanged. Patient has very limited vascular access options. Phosphorus 4.2 dated 10/20/2021.
--- NOTE | 2021-10-24 09:19 | XR ---
EXAMINATION TYPE: XR chest 1V portable DATE OF EXAM: 10/24/2021 COMPARISON: Chest x-ray 10/23/2021 HISTORY: Intubated TECHNIQUE: Single frontal view of the chest is obtained. FINDINGS: Endotracheal tube, NG tube, left jugular central venous catheter are stable and overlying appropriate positions. Lung volumes are low. Cardiac mediastinal silhouette shows a similar appearanc e. There is prominence of the central vascularity, interstitium. Right hemidiaphragm is elevated. No evident pneumothorax or pleural effusion. There are overlying artifacts. IMPRESSION: There may be some slight interval improvement in aeration within the lungs, volume statu s.
[2021-10-24] MEDS: CHLORHEXIDINE GLUCONATE 15 ML CUP MUCOUS MEM SCH ×2 (09:47→21:21)
[2021-10-24] MEDS: APIXABAN 2.5 MG TABLET PO SCH ×2 (09:47→11:37)
[2021-10-24] MEDS: ASPIRIN 81 MG PO SCH (09:47)
[2021-10-24 09:48] LABS: Large Platelets Present
[2021-10-24] MEDS: INSULIN DETEMIR (LEVEMIR) 100 UNIT/ML SYR SQ SCH ×2 (09:51→21:22)
[2021-10-24 09:52] LABS: Glucose,Whole Blood 228 mg/dL (75-99)
[2021-10-24] MEDS: MIDODRINE 5 MG TAB PO SCH ×4 (09:56→21:51)
--- NOTE | 2021-10-24 10:00 | P.PN ---
Subjective Progress Note Date: 10/24/21 Principal diagnosis: Septic shock On 10/22/2021 patient seen in follow-up in the intensive care unit, he remains intubated, and sedated, currently on volume assist control 1 of ventilation with a rate of 30, tidal lamberts 400, FiO2 50% and PEEP of 5, this morning's blood gas shows pO2 of 103, pCO2 34, pH is 7.54 this was done and FiO2 of 65%. Today's chest x-ray has been reviewed showing no evident pneumothorax or pleural effusion, patchy airspace disease persistence in the right lung with volume loss, low lung volumes. He is currently on Diprivan at 25 mics per kilo per minute, no other drips. His on tube feedings with vital AF at a rate of 34 with a goal of 34 in standard water flushes, patient had a hemodialysis treatment yesterday on 10/21/2021 with removal of 1 L of fluid, he is planning to have another hemodialysis session today. Today's labs have been reviewed, his white blood cell count continues to improve and is down to 12.6 on today's labs, hemoglobin is down to 6.1, and patient is supposed to have one unit of packed red blood cells transfused this morning, his last INR from 10/20/2021 was 1.3, sodium is 141, attest him is 3.4, chloride is 101, CO2 is 28, anion gap was 12, BUN is 56, creatinine is 5.68, renal function has significantly improved since admission. His liver enzymes were up trending still on yesterday's labs, and AST was 640, ALT was 245, and alkaline phosphatase was up to 257. Patient tested negative for COVID-19, was found to be bacteremic with evidence of MSSA in his blood cultures. His last set of blood cultures on 10/21/2021 had shown no growth thus far, his sputum has been negative thus far. Patient is currently on nafcillin, ID service is following. Vancomycin has been discontinued. Patient continues on Eliquis 2.5 mg twice daily for history of pulmonary embolism. Hemodynamically patient is stable. Low-grade fevers overnight, but overall more stable. On 10/23/2021 patient seen in follow-up in intensive care unit, he remains intubated, and sedated, on volume assist control mode of ventilation with a rate of 30, tidal volume is 400, FiO2 50% and PEEP of 5. This point shows pO2 of 72, pCO2 of 38, and pH of 7.52. Today's chest x-ray showing ET tube 1 cm above the cristi, NG tube in the appropriate position, low lung volumes, left jugular central venous catheter with the distal tip in the right atrium, airspace disease bilaterally, no evidence of pneumothorax, small effusions more difficult to exclude. Vital signs have been stable overnight, not requiring any vasopressor support, afebrile. Patient is currently on 0.9 normal saline at a rate of 20 ML per hour, Diprivan is currently at 35 mics per kilo per minute. He remains on maintenance dose Eliquis 2.5 mg twice daily for history of p ulmonary emboli, he remains on nafcillin for MSSA in the blood cultures, follow- up blood cultures so far showing no growth, gastric aspirate culture was also sent for some reason, showing rare PMNs, rare budding yeast and rare gram- positive cocci. Today's blood work has been reviewed, a cytosis continues to improve and is within normal limits today, white blood cell count 7.4, hemoglobin is 8.1, platelet count continues to improve and is up to 102, sodium is 138, potassium is 3.6, chloride is 100, CO2 is 27, BUN is 53, creatinine is 5.2, his LFTs were reviewed, and AST and ALT are improving, but alkaline phosphatase has increased to 528. Patient received 1 unit of packed red blood cells yesterday for hemoglobin of 7.2 with hemodialysis. Patient had hemodialysis yesterday with removal of 390 mL of fluid, is having another hemodialysis session with a goal of removing 1 L and fluid. Had no acute events overnight. Pereira catheter is in place, and he is producing about 10-20 mL an hour. On October 24, 2021 patient seen in follow-up in the intensive care unit, he remains intubated, and sedated on assist control mode of ventilation with a rate of 24, tidal volume is 400, FiO2 of 60% and PEEP of 5. This morning's blood gas has been reviewed showing pO2 of 56, pCO2 of 47, and pH of 7.41, his FiO2 was increased to 60% based on the blood gases from this morning. He is maintaining O2 saturations above 90-92%, currently satting 94%, will drop the FiO2 back down to 50% increase PEEP to 10. Today's chest x-ray showing hypoventilatory changes, possible expiratory exposure, interstitial prominence, mild patchy basilar opacities. Yesterday patient had a hemodialysis treatment would removal of 1 L of fluid. His labs today showing improvement in his renal function, with BUN is 57, and creatinine of 4.87. Nephrology is following. Yesterday patient was given a sedation holiday and apparently he failed, he did follow command, however became very tachypneic restless, and had to be resedated. Apparently he was having some coughing this morning and his Diprivan rate has been increased to 40 mics per minute, he is on 0.9 normal saline at a rate of 10 ML per hour, patient had a low-grade fever this morning with a temp of 100.3 this morning. Patient remains on nafcillin for MSSA bacteremia, his follow-up blood cultures remain negative thus far. His white blood cell count is improving and is currently at 7, hemoglobin is 8.5, sodium is 134, potassium is 4.6, chloride is 98, CO2 is 25, LFTs are improving, AST is down to 140, ALT is 144, alkaline phosphatase is 444. Objective - Vital Signs Vital signs: Vital Signs Temp 100.3 F H 10/24/21 08:00 Pulse 86 10/24/21 08:00 Resp 31 H 10/24/21 08:00 BP 123/60 10/24/21 08:00 Pulse Ox 95 10/24/21 08:00 Intake & Output 10/23/21 10/24/21 10/24/21 18:59 06:59 18:59 Intake Total 1182.241 760 49 Output Total 1105 140 60 Balance 77.241 620 -11 Weight 110 kg Intake: IV 450 210 10 .9 kvo 150 110 10 Nafcillin 2 gm In 300 100 Dextrose 5% in Water 100 ml @ 50 mls/hr IVPB Q4HR GABY Rx#:[id number] Intake, IV Titration 259.241 100 Amount propofoL 1,000 mg In 259.241 100 Empty Bag 1 bag @ Titrate IV .Q0M GABY Rx#: [id number] Tube Feeding 413 390 39 Other 60 60 Output: Urine 105 140 60 Hemodialysis 1000 Other: Voiding Method Indwelling Catheter Indwelling Catheter ABP, PAP, CO, CI - Last Documented Arterial Blood Pressure 95/57 - Exam GENERAL EXAM: Sedated, intubated, 46-year-old male on volume assist control mode of ventilation with a rate of 24, tidal volume is 400, FiO2 of 60% and PEEP of 5 comfortable in no apparent distress. HEAD: Normocephalic/atraumatic. EYES: Normal reaction of pupils, equal size. Conjunctiva pink, sclera white. NOSE: Clear with pink turbinates. THROAT: No erythema or exudates. NECK: No masses, no JVD, no thyroid enlargement, no adenopathy. CHEST: No chest wall deformity. Symmetrical expansion. Healed incision in the left upper chest from previous Hero catheter in the left subclavian LUNGS: Equal air entry with no crackles, wheeze, rhonchi or dullness. CVS: Regular rate and rhythm, normal S1 and S2, no gallops, no murmurs, no rubs ABDOMEN: Soft, nontender. No hepatosplenomegaly, normal bowel sounds, no guarding or rigidity. EXTREMITIES: No clubbing, no edema, no cyanosis, 2+ pulses and upper and lower extremities. MUSCULOSKELETAL: Muscle strength and tone normal. Right below the knee amputation, right femoral hemodialysis catheter is in place SPINE: No scoliosis or deformity SKIN: No rashes CENTRAL NERVOUS SYSTEM: Sedated and intubated No focal deficits, tone is normal in all 4 extremities. - Labs CBC & Chem 7: 10/24/21 05:27 10/24/21 05:27 Labs: Abnormal Lab Results - Last 24 Hours (Table) 10/23/21 10/23/21 10/23/21 Range/Units 11:29 16:10 20:27 RBC (4.30-5.90) m/uL Hgb (13.0-17.5) gm/dL Hct (39.0-53.0) % RDW (11.5-15.5) % ABG pCO2 (35-45) mmHg ABG pO2 (83-108) mmHg ABG HCO3 (21-25) mmol/L ABG Total CO2 (19-24) mmol/L ABG O2 Saturation (94-97) % Sodium (137-145) mmol/L BUN (9-20) mg/dL Creatinine (0.66-1.25) mg/dL Glucose (74-99) mg/dL POC Glucose (mg/dL) 121 H 125 H 120 H (75-99) mg/dL Calcium (8.4-10.2) mg/dL Total Bilirubin (0.2-1.3) mg/dL AST (17-59) U/L ALT (4-49) U/L Alkaline Phosphatase (38-126) U/L Total Protein (6.3-8.2) g/dL Albumin (3.5-5.0) g/dL 10/23/21 10/24/21 10/24/21 Range/Units 23:27 03:48 05:01 RBC (4.30-5.90) m/uL Hgb (13.0-17.5) gm/dL Hct (39.0-53.0) % RDW (11.5-15.5) % ABG pCO2 47 H (35-45) mmHg ABG pO2 56 L* (83-108) mmHg ABG HCO3 30 H (21-25) mmol/L ABG Total CO2 31 H (19-24) mmol/L ABG O2 Saturation 85.8 L (94-97) % Sodium (137-145) mmol/L BUN (9-20) mg/dL Creatinine (0.66-1.25) mg/dL Glucose (74-99) mg/dL POC Glucose (mg/dL) 146 H 176 H (75-99) mg/dL Calcium (8.4-10.2) mg/dL Total Bilirubin (0.2-1.3) mg/dL AST (17-59) U/L ALT (4-49) U/L Alkaline Phosphatase (38-126) U/L Total Protein (6.3-8.2) g/dL Albumin (3.5-5.0) g/dL 10/24/21 10/24/21 Range/Units 05:27 05:27 RBC 2.70 L (4.30-5.90) m/uL Hgb 8.5 L (13.0-17.5) gm/dL Hct 26.8 L (39.0-53.0) % RDW 18.9 H (11.5-15.5) % ABG pCO2 (35-45) mmHg ABG pO2 (83-108) mmHg ABG HCO3 (21-25) mmol/L ABG Total CO2 (19-24) mmol/L ABG O2 Saturation (94-97) % Sodium 134 L (137-145) mmol/L BUN 57 H (9-20) mg/dL Creatinine 4.87 H (0.66-1.25) mg/dL Glucose 181 H (74-99) mg/dL POC Glucose (mg/dL) (75-99) mg/dL Calcium 6.9 L (8.4-10.2) mg/dL Total Bilirubin 5.1 H (0.2-1.3) mg/dL AST 140 H (17-59) U/L ALT 144 H (4-49) U/L Alkaline Phosphatase 444 H (38-126) U/L Total Protein 5.3 L (6.3-8.2) g/dL Albumin 2.5 L (3.5-5.0) g/dL Microbiology - Last 24 Hours (Table) 10/22/21 06:00 Blood Culture - Preliminary Blood No Growth after 48 hours 10/23/21 05:33 Blood Culture - Preliminary Blood No Growth after 24 hours 10/21/21 09:15 Blood Culture - Preliminary Blood No Growth after 48 hours Assessment and Plan Plan: Assessment: #1. Acute hypoxic respiratory failure related to acute septic shock and subsequent brief cardiac arrest. Patient was intubated and placed on mechanical ventilator on 10/20/2021 in the intensive care unit, chest x-ray shows minimal patchy atelectasis, no clear evidence of aspiration. #2. MSSA bacteremia, initially covered with cefepime and vancomycin, currently on nafcillin #3. History of endocarditis and the last ANNABELLE on 10/05/2021 did not show any evidence of vegetation. The source is most likely the right femoral hemodialysis catheter however this is the only vascular access right now #4. Acute cardiac arrest/asystole requiring CPR for about 2-3 minutes with return of spontaneous circulation, suspect related to acute on chronic kidney failure, and acute hyperkalemia #5. Hypotension related to sepsis, recovered and patient is currently off vasopressor support #6. End-stage renal disease on hemodialysis on Friday. He was dialyzed on 10/21/2021 #7. Severe peripheral vascular disease with history of below the knee application on the right #8. Pulmonary embolism, status post EKOS, on maintenance dose Eliquis 2.5 mg twice daily #9. Diabetes mellitus type 2 on insulin pump on an outpatient basis #10. Troponin leak secondary to oxygen mismatch in the setting of acute sepsis #11. Hyperlipidemia #12. Peripheral neuropathy due to diabetes mellitus #13. Chronic anemia #14. Preserved LV systolic function with ejection fraction of 55-60% along with severe pulmonary hypertension #15. Suspect underlying encephalopathy secondary to prolonged hypotension and cardiac arrest Plan: Chest x-ray, labs and ABGs reviewed continue AC vent settings, increase PEEP to 10, drop FiO2 back down to 50% Yesterday patient apparently failed a sedation holiday, became restless and coughing Vital signs have been stable, 1 single low-grade fever this morning Leukocytosis is improved, follow blood cultures are negative Continues on nafcillin for MSSA bacteremia Vascular surgery has been consulted for possible hemodialysis access exchange Depending on their plans we'll plan on daily traction of sedation and possible spontaneous breathing trial If patient tolerates sedation holiday place on pressure-support of 10 and CPAP of 5 Obtain weaning parameters Hemodialysis per nephrology Renal function is improving Continue oral anticoagulation Continue to follow I performed a history & physical examination of the patient and discussed their management with my nurse practitioner, Samantha Mccormick. I reviewed the nurse practitioner's note and agree with the documented findings and plan of care. Lung sounds are positive for diminished breath sounds throughout the lung martinez. The findings and the impression was discussed with the patient. I attest to the documentation by the nurse practitioner. Time with Patient: Greater than 30
[2021-10-24 11:25] LABS: Glucose,Whole Blood 234 mg/dL (75-99)
--- NOTE | 2021-10-24 12:14 | PN ---
PROGRESS NOTE This gentleman has history of multiple pulmonary embolisms, right ventricle enlargement, pulmonary hypertension, remains on the ventilator. Yesterday his weaning efforts were unsuccessful. He is in sinus rhythm, hemodynamically stable. Cardiac-stover I have no new specific suggestions at this time. His has also history of end-stage renal disease on hemodialysis. Overall prognosis appears to be poor for this patient. Yesterday, his weaning efforts were unsuccessful. He does not have any significant pressors and he underwent dialysis uneventfully. EXAMINATION: There is evidence of JVD. S1-S2 heard normally, short systolic murmur noted. Lungs reveal ventilator assisted breath sounds. Rest of physical examination was unchanged. I am recommending that we continue current medical regimen from a cardiac standpoint, which includes apixaban 2.5 mg b.i.d., aspirin 81 mg daily, and also beta blockers if necessary but at this time he is in sinus rhythm. We will continue current medical regimen and I will see him as needed. MMBRENNANL / ODESSAN: [id number] /
--- NOTE | 2021-10-24 12:16 | US ---
EXAMINATION TYPE: US venous doppler duplex E DATE OF EXAM: 10/24/2021 COMPARISON: Previous upper extremity duplex dated 05/17/2021 CLINICAL HISTORY: including internal jugular for patency. ICU. Intubated. Restraints at wrists. La rge body habitus. Limited history. Patient has had multiple dialysis grafts. Current HD is infecte d. SIDE PERFORMED: Bilateral. Grayscale, color Doppler, spectral Doppler imaging performed of the deep v eins of the upper extremities and neck. The shortness portions of the right internal jugular vein, right subclavian vein, axillary vein, port ions of the right brachial veins, the cephalic vein are patent. Basilic vein not seen with certainty. Radial veins appear patent on the right. Ulnar veins not seen. The left internal jugular vein shows low level internal echoes, lack of color flow over a limited por tion. Indwelling stent or catheter is noted in the left neck, similar findings noted on prior exam. T he visualized left subclavian, brachial veins, radial veins are patent. EXTREMELY limited exam due to patient positioning, immobile and body habitus. Right Arm: Negative for DVT Left Arm: Chronic DVT in lower left IJV. The right internal jugular vein appears somewhat diminutive centrally. IMPRESSION: Exam is limited. 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
--- NOTE | 2021-10-24 12:56 | P.PN ---
Subjective Progress Note Date: 10/24/21 Pt failed SBT yesterday. Had another 1L of IVF removed from iHD. PO2 is 56 on AC 400, FiO2 50%, PEEP 5. Pulmonology increased PEEP to 10 today. Vascular surgery consult to exchange femoral dialysis catheter now that patient is s/p 48 hours of negative BCx. Objective - Vital Signs Vital signs: Vital Signs Temp 99.7 F H 10/24/21 12:00 Pulse 78 10/24/21 12:00 Resp 26 H 10/24/21 12:00 BP 143/73 10/24/21 12:00 Pulse Ox 95 10/24/21 12:00 Intake & Output 10/23/21 10/24/21 10/24/21 18:59 06:59 18:59 Intake Total 1182.241 760 547.485 Output Total 1105 140 90 Balance 77.241 620 457.485 Weight 110 kg 108.7 kg Intake: IV 450 210 160 .9 kvo 150 110 60 Nafcillin 2 gm In 300 100 100 Dextrose 5% in Water 100 ml @ 50 mls/hr IVPB Q4HR G[facility] Rx#:[id number] Intake, IV Titration 259.241 100 123.485 Amount propofoL 1,000 mg In 259.241 100 123.485 Empty Bag 1 bag @ Titrate IV .Q0M GABY Rx#: [id number] Tube Feeding 413 390 234 Other 60 60 30 Output: Urine 105 140 90 Hemodialysis 1000 Other: Voiding Method Indwelling Catheter Indwelling Catheter Indwelling Catheter ABP, PAP, CO, CI - Last Documented Arterial Blood Pressure 95/57 - Exam Gen: intubated, sedated HEENT: normocephalic, atraumatic, Resp: vent: AC 400, FiO2 50%, PEEP 5 CVS: good distal perfusion x 4, : no SPT, no CVAT, loaiza catheter is present MSK: bilateral pitting edema, no clubbing Neuro: non-focal, moving all extremities - Labs CBC & Chem 7: 10/24/21 05:27 10/24/21 05:27 Labs: Abnormal Lab Results - Last 24 Hours (Table) 10/23/21 10/23/21 10/23/21 Range/Units 16:10 20:27 23:27 RBC (4.30-5.90) m/uL Hgb (13.0-17.5) gm/dL Hct (39.0-53.0) % RDW (11.5-15.5) % ABG pCO2 (35-45) mmHg ABG pO2 (83-108) mmHg ABG HCO3 (21-25) mmol/L ABG Total CO2 (19-24) mmol/L ABG O2 Saturation (94-97) % Sodium (137-145) mmol/L BUN (9-20) mg/dL Creatinine (0.66-1.25) mg/dL Glucose (74-99) mg/dL POC Glucose (mg/dL) 125 H 120 H 146 H (75-99) mg/dL Calcium (8.4-10.2) mg/dL Total Bilirubin (0.2-1.3) mg/dL AST (17-59) U/L ALT (4-49) U/L Alkaline Phosphatase (38-126) U/L Total Protein (6.3-8.2) g/dL Albumin (3.5-5.0) g/dL 10/24/21 10/24/21 10/24/21 Range/Units 03:48 05:01 05:27 RBC 2.70 L (4.30-5.90) m/uL Hgb 8.5 L (13.0-17.5) gm/dL Hct 26.8 L (39.0-53.0) % RDW 18.9 H (11.5-15.5) % ABG pCO2 47 H (35-45) mmHg ABG pO2 56 L* (83-108) mmHg ABG HCO3 30 H (21-25) mmol/L ABG Total CO2 31 H (19-24) mmol/L ABG O2 Saturation 85.8 L (94-97) % Sodium (137-145) mmol/L BUN (9-20) mg/dL Creatinine (0.66-1.25) mg/dL Glucose (74-99) mg/dL POC Glucose (mg/dL) 176 H (75-99) mg/dL Calcium (8.4-10.2) mg/dL Total Bilirubin (0.2-1.3) mg/dL AST (17-59) U/L ALT (4-49) U/L Alkaline Phosphatase (38-126) U/L Total Protein (6.3-8.2) g/dL Albumin (3.5-5.0) g/dL 10/24/21 10/24/21 10/24/21 Range/Units 05:27 09:51 11:24 RBC (4.30-5.90) m/uL Hgb (13.0-17.5) gm/dL Hct (39.0-53.0) % RDW (11.5-15.5) % ABG pCO2 (35-45) mmHg ABG pO2 (83-108) mmHg ABG HCO3 (21-25) mmol/L ABG Total CO2 (19-24) mmol/L ABG O2 Saturation (94-97) % Sodium 134 L (137-145) mmol/L BUN 57 H (9-20) mg/dL Creatinine 4.87 H (0.66-1.25) mg/dL Glucose 181 H (74-99) mg/dL POC Glucose (mg/dL) 228 H 234 H (75-99) mg/dL Calcium 6.9 L (8.4-10.2) mg/dL Total Bilirubin 5.1 H (0.2-1.3) mg/dL AST 140 H (17-59) U/L ALT 144 H (4-49) U/L Alkaline Phosphatase 444 H (38-126) U/L Total Protein 5.3 L (6.3-8.2) g/dL Albumin 2.5 L (3.5-5.0) g/dL Microbiology - Last 24 Hours (Table) 10/22/21 06:00 Blood Culture - Preliminary Blood No Growth after 48 hours 10/23/21 05:33 Blood Culture - Preliminary Blood No Growth after 24 hours 10/21/21 09:15 Blood Culture - Preliminary Blood No Growth after 48 hours Assessment and Plan Assessment: MSSA bacteremia Septic shock Lactic acidosis Acute hypoxic respiratory failure Asystole arrest with Rosc Acute encephalopathy, metabolic and secondary to infection line-await infectious disease recommendations - completed cefazolin 9 days prior to admission -Await repeat blood cultures = NGTD x 48 hours -Vent management per pulmonary - Recent ANNABELLE and TTE without vegetations - ID recs, Naficillin -Vascular surgery to exchange dialysis catheter if able End-stage renal disease on hemodialysis-T//Fri Anemia of chronic renal disease Hyperkalemia Metabolic acidosis - HD today with 1 unit pRBC - D/W Nephrology Diabetes mellitus type 2 Maintained on insulin pump as an outpatient - accucehck - Levemir and SSI -Hopefully improving glycemic control will improve his acidosis and hyperkalemia -Hemoglobin A1c 7.2 on 08/16/21 Elevated troponin -Likely reflective of end-stage renal disease -Cardiology recommendations appreciated Thromobocytopenia - likely reactive - follow CBC Chronic Pulmonary Embolsim with hx of Massive pulmonary embolism treated with EKOS 7 months ago - Eliquis GERD - PPI Dyslipidemia - not chronically on meds Seizure disorder DVT prophylaxis: reid Discussed with: patient, nursing, son Anticipated discharge date: undetermined Anticipated discharge place: undetermined
--- NOTE | 2021-10-24 13:05 | CDI ---
Documentation Clarification Form Date: 10/23/2021 09:03:01 AM From: Raquel Melgoza RN CCDS Admit Date: 10/18/2021 09:42:00 AM Patient Name: Cheoc Bill Visit Number: [id number] Discharge Date: ATTENTION: The Clinical Documentation Specialists (CDI) and [facility] Coding Staff appreciate your assistance in clarifying documentation. Please respond to the clarification below the line at the bottom and electronically sign. The CDI & [facility] Coding staff will review the response and follow-up if needed. Please note: Queries are made part of the Legal Health Record. If you have any questions, please contact the author of this message via ITS. Dr. Fermín Aly Elevated troponins, suspect type II mechanism related to sepsis, hypotension. is documented 10/19, Cardiology consult and 10/20 and 10/21 Cardiology progress notes. Additional clarification regarding the Type II mechanism is requested. Patient History/Risk Factors: 50-year-old male presents to the ED via EMS for not acting right. EMS evaluation the patient had increased work of breathing and weak. The patient is on 3L of home oxygen and has SpO2 in the 70s. The patient became unresponsive in ED and was in Cardiopulmonary arrest with successful resuscitation. 10/18, ED Note. Medical History: AKA, DM, ESRD on Hemodialysis, recurrent MSSA of bacteremia recently d/c 08/23 after hemodialysis catheter was changed and a dialysis catheter was placed in right groin. Recent PE with EKOS, 10/18, H&P Clinical Indicators: VSS: 10/18 B/P 86/55, HR 108, Temp 103.1 F Oral, RR 18, SpO2 64% 4L nasal cannula Troponin: 10/18 Troponin 0.188, 0.130, 0.120 EKG Results:10/18 Sinus Tachycardia CXR: 10/18 Perihilar infiltrates Treatment: 10/18 to current ICU admission, 10/18 0.9NS 500cc bolus; 10/19 0.9NS 1L bolus x 1, 10/18 Vancomycin 1,000mg IVPB x1, 10/19 Vancomycin 1,000mg IVPB x 1, 10/20 Vancomycin 1,500mg IVPB x 1; 10/22 Vancomycin 1,500mg IVPB x 1. 10/18 to 10/22 Vasopressin 60 units IV; 10/18 Levaquin 750mg IVPB x 1; 10/18 10/19 Cefepime 1gm IVPB Q12H; 10/19 10/09Cefepime 1gm IVPB Q12H; 10/20 to 10/21 Cefepime 1gm IVPB HS. Can you please clarify the type II mechanism? [ x ] Type 2 MA due to Sepsis and hypotension [ ] Type 2 MA due to other (please specify ) [ ] Unable to determine [ ] Other Condition, please specify (Template Last Revised: December 2020) MTDD
--- NOTE | 2021-10-24 13:13 | P.GSCN ---
History of Present Illness Consult date: 10/24/21 Reason for Consult: Bacteremia, request he HD catheter replacement Requesting physician: Elkin Arndt History of present illness: This is a 46-year-old who presented to the emergency department on 10/18/2021 for fever, weakness, and shortness of breath. Patient has a history of end- stage renal disease on hemodialysis, diabetes mellitus, recurrent bacteremia, pulmonary embolism with EKOS. He has had multiple hemodialysis sites in the past including a hero graft that is nonfunctioning. He was last admitted into the hospital with bacteremia in where he had a right IJ HD permacath which was removed and replaced once blood cultures were negative on 08/20/2021 with a right femoral permacath. On admission on 10/18/2021 CODE BLUE was called and the patient and CPR was initiated following transfer to the ICU for septic shock. Patient tested negative for COVID-19, blood cultures were positive for Staphyloccous aureus on 10/18/21. He remains intubated and sedated. He had a low-grade temp of 100.3 this morning. Vascular surgery was consulted for removal and replacement of hemodialysis catheter. He does have a loaiza catheter which he is putting out small amounts of urine. He currently is scheduled for hemodialysis Friday. Current preliminary blood culture has no growth after 72 hours. Awaiting final culture. Patient also had a Gram stain sputum culture that showed rare gram-positive cocci. Repeat is pending. Review of Systems ROS unobtainable: due to endotracheal tube Past Medical History Past Medical History: Diabetes Mellitus, Dialysis, GERD/Reflux, Hyperlipidemia, Pulmonary Embolus (PE), Renal Disease, Seizure Disorder, Syncope Additional Past Medical History / Comment(s): constipation, anemia, peripheral vascular disease, diabetes mellitus on insulin pump for blood sugar control, previous history of massive pulmonary embolism - ECOS, hyperlipidemia, HD at home History of Any Multi-Drug Resistant Organisms: None Reported Additional Past Surgical History / Comment(s): tom cataract, peritoneal dialysis catheter rt side, ECOS 03/19/21, HERO HD site left chest, right forearm fistula - no longer active, left arm fistula - no longer active, right chest HD temp. HD cath., RBKA Past Anesthesia/Blood Transfusion Reactions: No Reported Reaction Past Psychological History: Anxiety, Depression Smoking Status: Never smoker Past Alcohol Use History: None Reported Past Drug Use History: None Reported - Past Family History Mother Family Medical History: Cancer Father Family Medical History: Dementia Medications and Allergies Home Medications Medication Instructions Recorded Confirmed Type Dialyvite 1 tab PO DAILY 01/31/17 10/18/21 History Ergocalciferol [Vitamin D2 50,000 unit PO Q14D 01/31/17 10/18/21 History (DRISDOL)] INSULIN LISPRO (For Pump) [humaLOG 0.01 units SQ-PUMP CONTINUOUS 01/31/17 10/18/21 History (For Pump)] Omeprazole [PriLOSEC] 20 mg PO BID 01/31/17 10/18/21 History Timolol [Betimol 0.5% Ophth Soln] 1 drop RIGHT EYE BID 01/31/17 10/18/21 History Furosemide [Lasix] 80 mg PO BID 10/01/20 10/18/21 History Pregabalin [Lyrica] 200 mg PO TID 10/01/20 10/18/21 History oxyCODONE-APAP 10-325MG [Percocet 1 tab PO Q6H 10/01/20 10/18/21 History 10-325 mg] Metoclopramide [Reglan] 5 mg PO AC-TID 03/16/21 10/18/21 History Midodrine HCl [ProAmatine] 10 mg PO TID 03/16/21 10/18/21 History Ondansetron HCl [Zofran] 4 mg PO BID 03/16/21 10/18/21 History Calcium Acetate [PhosLo] 667 mg PO AC-LUNCH 05/14/21 10/18/21 History Aspirin EC [Ecotrin Low Dose] 81 mg PO DAILY 08/06/21 10/18/21 History Dulaglutide [Trulicity] 1.5 mg SQ WE 08/06/21 10/18/21 History Heparin 1000 Units/Ml 6,400 units SQ MOTUTHFRSA 08/06/21 10/18/21 History Sennosides/Docusate Sodium [Senna 1 tab PO BID PRN 08/06/21 10/18/21 History Plus 8.6-50 mg Tablet] Vilazodone HCl [Viibryd] 40 mg PO PC-SUPPER 08/06/21 10/18/21 History traZODone HCL [Desyrel] 100 mg PO HS 08/06/21 10/18/21 History diazePAM [Valium] 2 mg PO TID PRN #6 tab 08/23/21 10/18/21 Rx Apixaban [Eliquis] 5 mg PO BID 10/18/21 10/18/21 History Allergies Allergy/AdvReac Type Severity Reaction Status Date / Time No Known Allergies Allergy Verified 10/18/21 09:36 Surgical - Exam Vital Signs Temp Pulse Resp BP Pulse Ox 103.1 F H 108 H 18 86/55 64 L 10/18/21 07:16 10/18/21 07:16 10/18/21 07:16 10/18/21 07:16 10/18/21 07:16 General appearance: The patient is intubated. Morbidly obese. HET: Head is normocephalic and atraumatic. Neck: Supple without lymphadenopathy. Trachea midline. Heart: S1 S2. Regular rate and rhythm. Lungs: Equal air entry. No crackles or wheezes are heard. Abdomen: Soft, nontender, nondistended. Extremities: Normal skin color and turgor. Right groin with HD catheter intact. Right BKA. Left lower extremity warm to touch with good capillary refill and palpable DP. Neurological: Intubated. Results - Labs 10/24/21 05:27 10/24/21 05:27 Abnormal Lab Results - Last 24 Hours (Table) 10/23/21 10/23/21 10/23/21 Range/Units 11:29 16:10 20:27 RBC (4.30-5.90) m/uL Hgb (13.0-17.5) gm/dL Hct (39.0-53.0) % RDW (11.5-15.5) % ABG pCO2 (35-45) mmHg ABG pO2 (83-108) mmHg ABG HCO3 (21-25) mmol/L ABG Total CO2 (19-24) mmol/L ABG O2 Saturation (94-97) % Sodium (137-145) mmol/L BUN (9-20) mg/dL Creatinine (0.66-1.25) mg/dL Glucose (74-99) mg/dL POC Glucose (mg/dL) 121 H 125 H 120 H (75-99) mg/dL Calcium (8.4-10.2) mg/dL Total Bilirubin (0.2-1.3) mg/dL AST (17-59) U/L ALT (4-49) U/L Alkaline Phosphatase (38-126) U/L Total Protein (6.3-8.2) g/dL Albumin (3.5-5.0) g/dL 10/23/21 10/24/21 10/24/21 Range/Units 23:27 03:48 05:01 RBC (4.30-5.90) m/uL Hgb (13.0-17.5) gm/dL Hct (39.0-53.0) % RDW (11.5-15.5) % ABG pCO2 47 H (35-45) mmHg ABG pO2 56 L* (83-108) mmHg ABG HCO3 30 H (21-25) mmol/L ABG Total CO2 31 H (19-24) mmol/L ABG O2 Saturation 85.8 L (94-97) % Sodium (137-145) mmol/L BUN (9-20) mg/dL Creatinine (0.66-1.25) mg/dL Glucose (74-99) mg/dL POC Glucose (mg/dL) 146 H 176 H (75-99) mg/dL Calcium (8.4-10.2) mg/dL Total Bilirubin (0.2-1.3) mg/dL AST (17-59) U/L ALT (4-49) U/L Alkaline Phosphatase (38-126) U/L Total Protein (6.3-8.2) g/dL Albumin (3.5-5.0) g/dL 10/24/21 10/24/21 Range/Units 05:27 05:27 RBC 2.70 L (4.30-5.90) m/uL Hgb 8.5 L (13.0-17.5) gm/dL Hct 26.8 L (39.0-53.0) % RDW 18.9 H (11.5-15.5) % ABG pCO2 (35-45) mmHg ABG pO2 (83-108) mmHg ABG HCO3 (21-25) mmol/L ABG Total CO2 (19-24) mmol/L ABG O2 Saturation (94-97) % Sodium 134 L (137-145) mmol/L BUN 57 H (9-20) mg/dL Creatinine 4.87 H (0.66-1.25) mg/dL Glucose 181 H (74-99) mg/dL POC Glucose (mg/dL) (75-99) mg/dL Calcium 6.9 L (8.4-10.2) mg/dL Total Bilirubin 5.1 H (0.2-1.3) mg/dL AST 140 H (17-59) U/L ALT 144 H (4-49) U/L Alkaline Phosphatase 444 H (38-126) U/L Total Protein 5.3 L (6.3-8.2) g/dL Albumin 2.5 L (3.5-5.0) g/dL Microbiology - Last 24 Hours (Table) 10/23/21 05:33 Blood Culture - Preliminary Blood No Growth after 24 hours 10/21/21 09:15 Blood Culture - Preliminary Blood No Growth after 48 hours 10/22/21 06:00 Blood Culture - Preliminary Blood No Growth after 24 hours Diabetes panel 10/24/21 Range/Units 05:27 Sodium 134 L (137-145) mmol/L Potassium 4.6 (3.5-5.1) mmol/L Chloride 98 (98-107) mmol/L Carbon Dioxide 25 (22-30) mmol/L BUN 57 H (9-20) mg/dL Creatinine 4.87 H (0.66-1.25) mg/dL Glucose 181 H (74-99) mg/dL Calcium 6.9 L (8.4-10.2) mg/dL AST 140 H (17-59) U/L ALT 144 H (4-49) U/L Alkaline Phosphatase 444 H (38-126) U/L Total Protein 5.3 L (6.3-8.2) g/dL Albumin 2.5 L (3.5-5.0) g/dL Calcium panel 10/24/21 Range/Units 05:27 Calcium 6.9 L (8.4-10.2) mg/dL Albumin 2.5 L (3.5-5.0) g/dL Pituitary panel 10/24/21 Range/Units 05:27 Sodium 134 L (137-145) mmol/L Potassium 4.6 (3.5-5.1) mmol/L Chloride 98 (98-107) mmol/L Carbon Dioxide 25 (22-30) mmol/L BUN 57 H (9-20) mg/dL Creatinine 4.87 H (0.66-1.25) mg/dL Glucose 181 H (74-99) mg/dL Calcium 6.9 L (8.4-10.2) mg/dL Adrenal panel 10/24/21 Range/Units 05:27 Sodium 134 L (137-145) mmol/L Potassium 4.6 (3.5-5.1) mmol/L Chloride 98 (98-107) mmol/L Carbon Dioxide 25 (22-30) mmol/L BUN 57 H (9-20) mg/dL Creatinine 4.87 H (0.66-1.25) mg/dL Glucose 181 H (74-99) mg/dL Calcium 6.9 L (8.4-10.2) mg/dL Total Bilirubin 5.1 H (0.2-1.3) mg/dL AST 140 H (17-59) U/L ALT 144 H (4-49) U/L Alkaline Phosphatase 444 H (38-126) U/L Total Protein 5.3 L (6.3-8.2) g/dL Albumin 2.5 L (3.5-5.0) g/dL Assessment and Plan Assessment: 1. End-stage renal disease requiring hemodialysis, on Friday schedule 2. Bacteremia, MSSA 3. Hypoxic respiratory failure related to acute septic shock with cardiac arrest 4. Hypotension 5. History of diabetes mellitus 6. History of pulmonary embolism status post EKOS and Eliquis Plan: 1. Continue symptomatic and supportive care 2. Venous duplex of upper extremities including IJ for patency ordered 3. Hold Eliquis for now 4. Await repeat blood culture results 5. Please have hemodialysis done early in the morning, plan for possible removal of right then permacath tomorrow 6. Further recommendations forthcoming per vascular surgeon Thank you for this consultation and allowing us take part in the plan of care of your patient during his hospital stay. The impression and plan of care has been dictated as directed. Dr. Loaiza I performed a history and examination of this patient, discussed the same with the dictator. I agree with the dictator's note ,documented as a scribe. Any additional findings or plans will be noted.
[2021-10-24] MEDS ORDERED: DEXTROSE 5% IN WATER 1,000 ML IV SCH (13:45)
[2021-10-24 16:48] LABS: Glucose,Whole Blood 134 mg/dL (75-99)
--- NOTE | 2021-10-24 18:25 | PN ---
PROGRESS NOTE DATE OF SERVICE: 10/24/2021 REASON FOR FOLLOWUP: MSSA bacteremia secondary to PermCath infection. INTERVAL HISTORY: The patient is afebrile. The patient did have a low-grade fever this morning of 100.3. The patient is hemodynamically stable. FiO2 is currently 50%. No significant purulent secretions through the ET or diarrhea reported by the nursing staff. PHYSICAL EXAMINATION: Blood pressure 113/67, pulse 73, temperature 98.8, he is 96% on 50% FiO2. General description is a middle-aged male intubated on the vent. Respiratory system: Unlabored breathing, decreased breath sounds in the base. No wheeze. Heart S1, S2. Regular rate and rhythm. Abdomen soft, mildly distended. No guarding or rigidity. LABS: Hemoglobin 8.4, white count 7.0, creatinine is 4.87. DIAGNOSTIC IMPRESSION AND PLAN: Patient with acute respiratory failure, multifactorial in this patient who did have MSSA sepsis more likely related to the Perma catheter. Vascular Surgery is following the patient, possible replacement of the catheter: For now continue on Levaquin and monitor clinical course closely. MMODL / IJN: [id number] /
[2021-10-24 21:28] LABS: Glucose,Whole Blood 148 mg/dL (75-99)
[2021-10-25 00:15] LABS: Glucose,Whole Blood 200 mg/dL (75-99)
[2021-10-25 00:24] LABS: Glucose,Whole Blood 176 mg/dL (75-99)
[2021-10-25] MEDS: INSULIN ASPART (NovoLOG) 100 UNIT/ML VIAL SQ SCH ×4 (00:28→12:29)
[2021-10-25] MEDS: NAFCILLIN 2 GM in DEXTROSE 5% IN WATER 100 ML IVPB SCH ×8 (00:29→12:30)
[2021-10-25] MEDS: IPRATROPIUM-ALBUTEROL 3 ML NEB INHALATION SCH ×4 (01:19→13:59)
[2021-10-25 04:32] LABS: Glucose,Whole Blood 194 mg/dL (75-99)
[2021-10-25 05:29] LABS: Anisocytosis Slight; Basophils % (A) 1 %; Eosinophils # (A) 0.5 k/uL (0-0.7); Eosinophils % (A) 8 %; HCT 23.8 % (39.0-53.0); HGB 7.8 gm/dL (13.0-17.5); Hypochromasia Slight; Lymphocytes # (A) 1.3 k/uL (1.0-4.8); Lymphocytes % (A) 18 %; MCH 30.8 pg (25.0-35.0); MCHC 32.7 g/dL (31.0-37.0); Macrocytosis Slight; Mean Platelet Volume 11.2; Monocytes # (A) 0.4 k/uL (0-1.0); Monocytes % (A) 6 %; Neutrophils # (A) 4.6 k/uL (1.3-7.7); Neutrophils % (A) 64 %; Platelet Count 203 k/uL (150-450); Poikilocytosis Slight; RBC 2.52 m/uL (4.30-5.90); RDW 18.7 % (11.5-15.5); WBC 7.2 k/uL (3.8-10.6)
[2021-10-25 05:33] LABS: ABG Base Excess 2.7 mmol/L; ABG HCO3 26 mmol/L (21-25); ABG Oxygen Saturation 97.2 % (94-97); ABG PCO2 36 mmHg (35-45); ABG PH 7.47 (7.35-7.45); ABG PO2 90 mmHg (83-108); ABG TCO2 27 mmol/L (19-24); Allen Test Performed? Yes
[2021-10-25 05:33] LABS: MCV 94.3 fL (80.0-100.0)
[2021-10-25 05:56] LABS: Albumin 2.6 g/dL (3.5-5.0); Calcium 6.8 mg/dL (8.4-10.2); Potassium 4.6 mmol/L (3.5-5.1); Total Protein 5.2 g/dL (6.3-8.2)
[2021-10-25] MEDS: INSULIN DETEMIR (LEVEMIR) 100 UNIT/ML SYR SQ SCH (06:30)
[2021-10-25] MEDS: PANTOPRAZOLE 40 MG TABLET PO SCH (06:30)
[2021-10-25 08:45] LABS: Glucose,Whole Blood 206 mg/dL (75-99)
--- NOTE | 2021-10-25 08:45 | XR ---
EXAMINATION TYPE: XR chest 1V portable DATE OF EXAM: 10/25/2021 COMPARISON: Chest x-ray 10/24/2021 HISTORY: Intubated TECHNIQUE: Single frontal view of the chest is obtained. FINDINGS: Endotracheal tube is overlying the tracheal air column, tip is somewhat obscured by artifa ct. NG tube, left jugular central venous catheter are overlying appropriate positions. Patient is rot ated. Lung volumes are improved. No evident pneumothorax or pleural effusion. Cardiac mediastinal catalino houette is not significantly changed accounting for differences in technique. There are overlying clari ds. IMPRESSION: There is improvement in aeration. Endotracheal tube tip may be in close proximity to the cristi similar to previous exam but is not well seen due to artifact. Consider follow-up exam.
[2021-10-25] MEDS: ASPIRIN 81 MG PO SCH (08:53)
[2021-10-25] MEDS: MIDODRINE 5 MG TAB PO SCH (08:53)
[2021-10-25] MEDS: CHLORHEXIDINE GLUCONATE 15 ML CUP MUCOUS MEM SCH (08:54)
[2021-10-25] MEDS ORDERED: ALTEPLASE 2 MG VIAL (CATHFLO) IV STA (09:12)
[2021-10-25] MEDS ORDERED: ALTEPLASE 2 MG VIAL (CATHFLO) MISCELLANE ONE (09:12)
--- NOTE | 2021-10-25 09:24 | P.PN ---
Subjective Patient is seen in follow-up for end-stage renal disease. He is maintained on hemodialysis on Friday schedule. Off vasopressors. Intubated. Scheduled for dialysis today but catheter is malfunctioning. Vital signs stable. HEENT: Intubated. LUNGS: Breath sounds decreased. HEART: Rate and Rhythm are regular. ABDOMEN: Soft, obese. EXTREMITITES: Right BKA. No drainage noted from the femoral catheter. Objective - Vital Signs Vital signs: Vital Signs Temp 99.9 F H 10/25/21 04:00 Pulse 80 10/25/21 09:00 Resp 24 10/25/21 09:00 BP 139/76 10/25/21 09:00 Pulse Ox 92 L 10/25/21 09:00 Intake & Output 10/24/21 10/25/21 10/25/21 18:59 06:59 18:59 Intake Total 1077.000 897.000 98 Output Total 110 310 Balance 967.000 587.000 98 Weight 108.7 kg 110 kg Intake: IV 340 310 20 .9 kvo 140 110 20 Nafcillin 2 gm In 200 200 Dextrose 5% in Water 100 ml @ 50 mls/hr IVPB Q4HR GABY Rx#:[id number] Intake, IV Titration 200.000 100.000 Amount propofoL 1,000 mg In 200.000 100.000 Empty Bag 1 bag @ Titrate IV .Q0M GABY Rx#: [id number] Tube Feeding 507 389 78 Other 30 98 Output: Urine 110 310 Other: Voiding Method Indwelling Catheter Indwelling Catheter # Bowel Movements 1 ABP, PAP, CO, CI - Last Documented Arterial Blood Pressure 95/57 - Labs CBC & Chem 7: 10/25/21 04:56 10/25/21 04:56 Labs: Abnormal Lab Results - Last 24 Hours (Table) 10/24/21 10/24/21 10/24/21 Range/Units 05:27 09:51 11:24 RBC (4.30-5.90) m/uL Hgb (13.0-17.5) gm/dL Hct (39.0-53.0) % RDW (11.5-15.5) % ABG pH (7.35-7.45) ABG HCO3 (21-25) mmol/L ABG Total CO2 (19-24) mmol/L ABG O2 Saturation (94-97) % Sodium (137-145) mmol/L Chloride (98-107) mmol/L Carbon Dioxide (22-30) mmol/L BUN (9-20) mg/dL Creatinine (0.66-1.25) mg/dL Glucose (74-99) mg/dL POC Glucose (mg/dL) 228 H 234 H (75-99) mg/dL Hemoglobin A1c 12.6 H (4.0-6.0) % Calcium (8.4-10.2) mg/dL Total Bilirubin (0.2-1.3) mg/dL AST (17-59) U/L ALT (4-49) U/L Alkaline Phosphatase (38-126) U/L Total Protein (6.3-8.2) g/dL Albumin (3.5-5.0) g/dL 10/24/21 10/24/21 10/25/21 Range/Units 16:46 21:16 00:13 RBC (4.30-5.90) m/uL Hgb (13.0-17.5) gm/dL Hct (39.0-53.0) % RDW (11.5-15.5) % ABG pH (7.35-7.45) ABG HCO3 (21-25) mmol/L ABG Total CO2 (19-24) mmol/L ABG O2 Saturation (94-97) % Sodium (137-145) mmol/L Chloride (98-107) mmol/L Carbon Dioxide (22-30) mmol/L BUN (9-20) mg/dL Creatinine (0.66-1.25) mg/dL Glucose (74-99) mg/dL POC Glucose (mg/dL) 134 H 148 H 200 H (75-99) mg/dL Hemoglobin A1c (4.0-6.0) % Calcium (8.4-10.2) mg/dL Total Bilirubin (0.2-1.3) mg/dL AST (17-59) U/L ALT (4-49) U/L Alkaline Phosphatase (38-126) U/L Total Protein (6.3-8.2) g/dL Albumin (3.5-5.0) g/dL 01/06/22 01/06/22 01/06/22 Range/Units 00:23 04:31 04:56 RBC 2.52 L (4.30-5.90) m/uL Hgb 7.8 L (13.0-17.5) gm/dL Hct 23.8 L (39.0-53.0) % RDW 18.7 H (11.5-15.5) % ABG pH (7.35-7.45) ABG HCO3 (21-25) mmol/L ABG Total CO2 (19-24) mmol/L ABG O2 Saturation (94-97) % Sodium (137-145) mmol/L Chloride (98-107) mmol/L Carbon Dioxide (22-30) mmol/L BUN (9-20) mg/dL Creatinine (0.66-1.25) mg/dL Glucose (74-99) mg/dL POC Glucose (mg/dL) 176 H 194 H (75-99) mg/dL Hemoglobin A1c (4.0-6.0) % Calcium (8.4-10.2) mg/dL Total Bilirubin (0.2-1.3) mg/dL AST (17-59) U/L ALT (4-49) U/L Alkaline Phosphatase (38-126) U/L Total Protein (6.3-8.2) g/dL Albumin (3.5-5.0) g/dL 10/25/21 10/25/21 10/25/21 Range/Units 04:56 05:48 08:44 RBC (4.30-5.90) m/uL Hgb (13.0-17.5) gm/dL Hct (39.0-53.0) % RDW (11.5-15.5) % ABG pH 7.47 H (7.35-7.45) ABG HCO3 26 H (21-25) mmol/L ABG Total CO2 27 H (19-24) mmol/L ABG O2 Saturation 97.2 H (94-97) % Sodium 133 L (137-145) mmol/L Chloride 96 L (98-107) mmol/L Carbon Dioxide 21 L (22-30) mmol/L BUN 78 H (9-20) mg/dL Creatinine 6.26 H (0.66-1.25) mg/dL Glucose 186 H (74-99) mg/dL POC Glucose (mg/dL) 206 H (75-99) mg/dL Hemoglobin A1c (4.0-6.0) % Calcium 6.8 L (8.4-10.2) mg/dL Total Bilirubin 3.0 H (0.2-1.3) mg/dL AST 68 H (17-59) U/L ALT 117 H (4-49) U/L Alkaline Phosphatase 329 H (38-126) U/L Total Protein 5.2 L (6.3-8.2) g/dL Albumin 2.6 L (3.5-5.0) g/dL Microbiology - Last 24 Hours (Table) 10/22/21 06:00 Blood Culture - Preliminary Blood No Growth after 72 hours 10/23/21 05:33 Blood Culture - Preliminary Blood No Growth after 48 hours 10/21/21 21:24 Gram Stain - Final Gastric Aspirate Sputum Culture - Final Funmilayo albicans 10/21/21 09:15 Blood Culture - Preliminary Blood No Growth after 72 hours Assessment and Plan Plan: Assessment: 1. End-stage renal disease maintained on hemodialysis on Friday schedule via right femoral permacath. 2. Septic shock secondary to staph bacteremia. Possible source permacath versus pneumonia. Also has a nonfunctioning hero graft. 3. Metabolic acidosis secondary to chronic kidney disease and lactic acidosis. 4. Hyperkalemia secondary to chronic kidney disease. Improved postdialysis. 5. Diabetes mellitus. 6. Anemia of chronic kidney disease. On Aranesp. Status post blood transfusion on 10/22/2021. Plan: Hemodialysis today. Infectious disease recommending exchange of dialysis catheter. Vascular surgery following for catheter exchange due to infection. Current catheter is also malfunctioning. Also discussed removal of hero graft as that can also be potential source of infection. Patient has very limited vascular access options. Wean FiO2. Follow-up cultures. Phosphorus 4.2 dated 10/20/2021. Case discussed with ICU team as well as vascular surgery.
--- NOTE | 2021-10-25 09:39 | P.PN ---
Subjective Progress Note Date: 10/25/21 The tissue was evaluated today and discussion was held with nephrology at the patient's bedside. The situation at hand is that the catheter up pierced to be the source of recurrent infection/sepsis and ideally should be removed for a catheter holiday. Thereafter the catheter could be replaced however venous access is very tenuous and cannot be guaranteed. I discussed this today via the telephone with the patient's son Mr. Checo Bill. I explained the situation in detail clearly indicating that I could not guarantee reestablishment of dialysis access if the catheter were to be removed. If the catheter was not to be removed the patient could continue in a septic syndrome. All questions were answered to patient's son satisfaction and I encouraged the patient to discuss the situation with appropriate family members. It is my understanding that Mr. Bill will visit with his father today and that there is a good possibility that the patient Mr. Bill could be extubated. If extubated we could also explain the scenario to the patient and receive his input in this regard. Currently the catheter is dysfunctional and TPA is to be instilled with the hope of reestablishing a functional catheter for dialysis today. If desired the catheter could be removed once an additional run of hemodialysis has been completed. Objective - Vital Signs Vital signs: Vital Signs Temp 99.9 F H 10/25/21 04:00 Pulse 80 10/25/21 09:00 Resp 24 10/25/21 09:00 BP 139/76 10/25/21 09:00 Pulse Ox 92 L 10/25/21 09:00 Intake & Output 10/24/21 10/25/21 10/25/21 18:59 06:59 18:59 Intake Total 1077.000 897.000 98 Output Total 110 310 Balance 967.000 587.000 98 Weight 108.7 kg 110 kg Intake: IV 340 310 20 .9 kvo 140 110 20 Nafcillin 2 gm In 200 200 Dextrose 5% in Water 100 ml @ 50 mls/hr IVPB Q4HR GABY Rx#:[id number] Intake, IV Titration 200.000 100.000 Amount propofoL 1,000 mg In 200.000 100.000 Empty Bag 1 bag @ Titrate IV .Q0M GABY Rx#: [id number] Tube Feeding 507 389 78 Other 30 98 Output: Urine 110 310 Other: Voiding Method Indwelling Catheter Indwelling Catheter # Bowel Movements 1 ABP, PAP, CO, CI - Last Documented Arterial Blood Pressure 95/57 - Labs CBC & Chem 7: 10/25/21 04:56 10/25/21 04:56 Labs: Abnormal Lab Results - Last 24 Hours (Table) 10/24/21 10/24/21 10/24/21 Range/Units 05:27 09:51 11:24 RBC (4.30-5.90) m/uL Hgb (13.0-17.5) gm/dL Hct (39.0-53.0) % RDW (11.5-15.5) % ABG pH (7.35-7.45) ABG HCO3 (21-25) mmol/L ABG Total CO2 (19-24) mmol/L ABG O2 Saturation (94-97) % Sodium (137-145) mmol/L Chloride (98-107) mmol/L Carbon Dioxide (22-30) mmol/L BUN (9-20) mg/dL Creatinine (0.66-1.25) mg/dL Glucose (74-99) mg/dL POC Glucose (mg/dL) 228 H 234 H (75-99) mg/dL Hemoglobin A1c 12.6 H (4.0-6.0) % Calcium (8.4-10.2) mg/dL Total Bilirubin (0.2-1.3) mg/dL AST (17-59) U/L ALT (4-49) U/L Alkaline Phosphatase (38-126) U/L Total Protein (6.3-8.2) g/dL Albumin (3.5-5.0) g/dL 10/24/21 10/24/21 10/25/21 Range/Units 16:46 21:16 00:13 RBC (4.30-5.90) m/uL Hgb (13.0-17.5) gm/dL Hct (39.0-53.0) % RDW (11.5-15.5) % ABG pH (7.35-7.45) ABG HCO3 (21-25) mmol/L ABG Total CO2 (19-24) mmol/L ABG O2 Saturation (94-97) % Sodium (137-145) mmol/L Chloride (98-107) mmol/L Carbon Dioxide (22-30) mmol/L BUN (9-20) mg/dL Creatinine (0.66-1.25) mg/dL Glucose (74-99) mg/dL POC Glucose (mg/dL) 134 H 148 H 200 H (75-99) mg/dL Hemoglobin A1c (4.0-6.0) % Calcium (8.4-10.2) mg/dL Total Bilirubin (0.2-1.3) mg/dL AST (17-59) U/L ALT (4-49) U/L Alkaline Phosphatase (38-126) U/L Total Protein (6.3-8.2) g/dL Albumin (3.5-5.0) g/dL 10/25/21 10/25/21 10/25/21 Range/Units 00:23 04:31 04:56 RBC 2.52 L (4.30-5.90) m/uL Hgb 7.8 L (13.0-17.5) gm/dL Hct 23.8 L (39.0-53.0) % RDW 18.7 H (11.5-15.5) % ABG pH (7.35-7.45) ABG HCO3 (21-25) mmol/L ABG Total CO2 (19-24) mmol/L ABG O2 Saturation (94-97) % Sodium (137-145) mmol/L Chloride (98-107) mmol/L Carbon Dioxide (22-30) mmol/L BUN (9-20) mg/dL Creatinine (0.66-1.25) mg/dL Glucose (74-99) mg/dL POC Glucose (mg/dL) 176 H 194 H (75-99) mg/dL Hemoglobin A1c (4.0-6.0) % Calcium (8.4-10.2) mg/dL Total Bilirubin (0.2-1.3) mg/dL AST (17-59) U/L ALT (4-49) U/L Alkaline Phosphatase (38-126) U/L Total Protein (6.3-8.2) g/dL Albumin (3.5-5.0) g/dL 10/25/21 10/25/21 10/25/21 Range/Units 04:56 05:48 08:44 RBC (4.30-5.90) m/uL Hgb (13.0-17.5) gm/dL Hct (39.0-53.0) % RDW (11.5-15.5) % ABG pH 7.47 H (7.35-7.45) ABG HCO3 26 H (21-25) mmol/L ABG Total CO2 27 H (19-24) mmol/L ABG O2 Saturation 97.2 H (94-97) % Sodium 133 L (137-145) mmol/L Chloride 96 L (98-107) mmol/L Carbon Dioxide 21 L (22-30) mmol/L BUN 78 H (9-20) mg/dL Creatinine 6.26 H (0.66-1.25) mg/dL Glucose 186 H (74-99) mg/dL POC Glucose (mg/dL) 206 H (75-99) mg/dL Hemoglobin A1c (4.0-6.0) % Calcium 6.8 L (8.4-10.2) mg/dL Total Bilirubin 3.0 H (0.2-1.3) mg/dL AST 68 H (17-59) U/L ALT 117 H (4-49) U/L Alkaline Phosphatase 329 H (38-126) U/L Total Protein 5.2 L (6.3-8.2) g/dL Albumin 2.6 L (3.5-5.0) g/dL Microbiology - Last 24 Hours (Table) 10/22/21 06:00 Blood Culture - Preliminary Blood No Growth after 72 hours 10/23/21 05:33 Blood Culture - Preliminary Blood No Growth after 48 hours 10/21/21 21:24 Gram Stain - Final Gastric Aspirate Sputum Culture - Final Funmilayo albicans 10/21/21 09:15 Blood Culture - Preliminary Blood No Growth after 72 hours
--- NOTE | 2021-10-25 09:46 | P.PN ---
Subjective Progress Note Date: 10/25/21 Principal diagnosis: Septic shock On 10/22/2021 patient seen in follow-up in the intensive care unit, he remains intubated, and sedated, currently on volume assist control 1 of ventilation with a rate of 30, tidal lamberts 400, FiO2 50% and PEEP of 5, this morning's blood gas shows pO2 of 103, pCO2 34, pH is 7.54 this was done and FiO2 of 65%. Today's chest x-ray has been reviewed showing no evident pneumothorax or pleural effusion, patchy airspace disease persistence in the right lung with volume loss, low lung volumes. He is currently on Diprivan at 25 mics per kilo per minute, no other drips. His on tube feedings with vital AF at a rate of 34 with a goal of 34 in standard water flushes, patient had a hemodialysis treatment yesterday on 10/21/2021 with removal of 1 L of fluid, he is planning to have another hemodialysis session today. Today's labs have been reviewed, his white blood cell count continues to improve and is down to 12.6 on today's labs, hemoglobin is down to 6.1, and patient is supposed to have one unit of packed red blood cells transfused this morning, his last INR from 10/20/2021 was 1.3, sodium is 141, attest him is 3.4, chloride is 101, CO2 is 28, anion gap was 12, BUN is 56, creatinine is 5.68, renal function has significantly improved since admission. His liver enzymes were up trending still on yesterday's labs, and AST was 640, ALT was 245, and alkaline phosphatase was up to 257. Patient tested negative for COVID-19, was found to be bacteremic with evidence of MSSA in his blood cultures. His last set of blood cultures on 10/21/2021 had shown no growth thus far, his sputum has been negative thus far. Patient is currently on nafcillin, ID service is following. Vancomycin has been discontinued. Patient continues on Eliquis 2.5 mg twice daily for history of pulmonary embolism. Hemodynamically patient is stable. Low-grade fevers overnight, but overall more stable. On 10/23/2021 patient seen in follow-up in intensive care unit, he remains intubated, and sedated, on volume assist control mode of ventilation with a rate of 30, tidal volume is 400, FiO2 50% and PEEP of 5. This point shows pO2 of 72, pCO2 of 38, and pH of 7.52. Today's chest x-ray showing ET tube 1 cm above the cristi, NG tube in the appropriate position, low lung volumes, left jugular central venous catheter with the distal tip in the right atrium, airspace disease bilaterally, no evidence of pneumothorax, small effusions more difficult to exclude. Vital signs have been stable overnight, not requiring any vasopressor support, afebrile. Patient is currently on 0.9 normal saline at a rate of 20 ML per hour, Diprivan is currently at 35 mics per kilo per minute. He remains on maintenance dose Eliquis 2.5 mg twice daily for history of p ulmonary emboli, he remains on nafcillin for MSSA in the blood cultures, follow- up blood cultures so far showing no growth, gastric aspirate culture was also sent for some reason, showing rare PMNs, rare budding yeast and rare gram- positive cocci. Today's blood work has been reviewed, a cytosis continues to improve and is within normal limits today, white blood cell count 7.4, hemoglobin is 8.1, platelet count continues to improve and is up to 102, sodium is 138, potassium is 3.6, chloride is 100, CO2 is 27, BUN is 53, creatinine is 5.2, his LFTs were reviewed, and AST and ALT are improving, but alkaline phosphatase has increased to 528. Patient received 1 unit of packed red blood cells yesterday for hemoglobin of 7.2 with hemodialysis. Patient had hemodialysis yesterday with removal of 390 mL of fluid, is having another hemodialysis session with a goal of removing 1 L and fluid. Had no acute events overnight. Pereira catheter is in place, and he is producing about 10-20 mL an hour. On October 24, 2021 patient seen in follow-up in the intensive care unit, he remains intubated, and sedated on assist control mode of ventilation with a rate of 24, tidal volume is 400, FiO2 of 60% and PEEP of 5. This morning's blood gas has been reviewed showing pO2 of 56, pCO2 of 47, and pH of 7.41, his FiO2 was increased to 60% based on the blood gases from this morning. He is maintaining O2 saturations above 90-92%, currently satting 94%, will drop the FiO2 back down to 50% increase PEEP to 10. Today's chest x-ray showing hypoventilatory changes, possible expiratory exposure, interstitial prominence, mild patchy basilar opacities. Yesterday patient had a hemodialysis treatment would removal of 1 L of fluid. His labs today showing improvement in his renal function, with BUN is 57, and creatinine of 4.87. Nephrology is following. Yesterday patient was given a sedation holiday and apparently he failed, he did follow command, however became very tachypneic restless, and had to be resedated. Apparently he was having some coughing this morning and his Diprivan rate has been increased to 40 mics per minute, he is on 0.9 normal saline at a rate of 10 ML per hour, patient had a low-grade fever this morning with a temp of 100.3 this morning. Patient remains on nafcillin for MSSA bacteremia, his follow-up blood cultures remain negative thus far. His white blood cell count is improving and is currently at 7, hemoglobin is 8.5, sodium is 134, potassium is 4.6, chloride is 98, CO2 is 25, LFTs are improving, AST is down to 140, ALT is 144, alkaline phosphatase is 444. On 10/25/2021 patient seen in follow-up in intensive care unit, patient remains sedated and intubated, on assist control mode of ventilation with a rate of 24, tidal volume was 400, FiO2 of 50% and PEEP of 10, this morning blood gas shows pO2 of 90, pCO2 of 36, pH of 7.47. This was done on FiO2 of 50%, today's chest x-ray shows improvement in aeration. Diprivan at 50 mics per kilo per minute, no other drips, no vasopressor support, he is in sinus mechanism, he is tolerating tube feedings he is receiving vital high-protein and 39 with a 39 in standard water flushes, no acute events overnight, patient did have low-grade fevers with T-max of 100.3F which was yesterday, and 99.9 this morning. Patient's follow-up blood cultures have been negative since 10/21/2021, sputum culture only showed Funmilayo albicans. Patient remains on nafcillin for MSSA bacteremia, ID service is following, ID service has recommended removing temporary right groin hemodialysis catheter and replacing it with a different hemodialysis access, vascular surgery has been consulted however patient may be difficult to find another site to insert another hemodialysis catheter. Please refer to the consultation note, patient has a history of previous left subclavian Hero hemodialysis cath insertion at another institution. [place] through the hemodialysis today his right groin hemodialysis catheter had stopped working and hemodialysis treatment had to be stopped. We'll have to wait for she is back from vascular surgery in regards to the possibility of another hemodialysis catheter insertion possibility. Otherwise patient has been stable, oxygenation has improved, chest x-ray findings are improving, we will proceed with daily introduction a sedation and spontaneous breathing trials today however we will wait for feedback from vascular surgery and nephrology before extubation. Objective - Vital Signs Vital signs: Vital Signs Temp 99.9 F H 10/25/21 04:00 Pulse 80 10/25/21 09:00 Resp 24 10/25/21 09:00 BP 139/76 10/25/21 09:00 Pulse Ox 92 L 10/25/21 09:00 Intake & Output 10/24/21 10/25/21 10/25/21 18:59 06:59 18:59 Intake Total 1077.000 897.000 98 Output Total 110 310 Balance 967.000 587.000 98 Weight 108.7 kg 110 kg Intake: IV 340 310 20 .9 kvo 140 110 20 Nafcillin 2 gm In 200 200 Dextrose 5% in Water 100 ml @ 50 mls/hr IVPB Q4HR GABY Rx#:[id number] Intake, IV Titration 200.000 100.000 Amount propofoL 1,000 mg In 200.000 100.000 Empty Bag 1 bag @ Titrate IV .Q0M GABY Rx#: [id number] Tube Feeding 507 389 78 Other 30 98 Output: Urine 110 310 Other: Voiding Method Indwelling Catheter Indwelling Catheter # Bowel Movements 1 ABP, PAP, CO, CI - Last Documented Arterial Blood Pressure 95/57 - Exam GENERAL EXAM: Sedated, intubated, 46-year-old male on volume assist control mode of ventilation with a rate of 24, tidal volume is 400, FiO2 of 50% and PEEP of 10 comfortable in no apparent distress. HEAD: Normocephalic/atraumatic. EYES: Normal reaction of pupils, equal size. Conjunctiva pink, sclera white. NOSE: Clear with pink turbinates. THROAT: No erythema or exudates. NECK: No masses, no JVD, no thyroid enlargement, no adenopathy. CHEST: No chest wall deformity. Symmetrical expansion. Healed incision in the left upper chest from previous Hero catheter in the left subclavian LUNGS: Equal air entry with no crackles, wheeze, rhonchi or dullness. CVS: Regular rate and rhythm, normal S1 and S2, no gallops, no murmurs, no rubs ABDOMEN: Soft, nontender. No hepatosplenomegaly, normal bowel sounds, no guarding or rigidity. EXTREMITIES: No clubbing, no edema, no cyanosis, 2+ pulses and upper and lower extremities. MUSCULOSKELETAL: Muscle strength and tone normal. Right below the knee amputation, right femoral hemodialysis catheter is in place SPINE: No scoliosis or deformity SKIN: No rashes CENTRAL NERVOUS SYSTEM: Sedated and intubated No focal deficits, tone is normal in all 4 extremities. - Labs CBC & Chem 7: 10/25/21 04:56 10/25/21 04:56 Labs: Abnormal Lab Results - Last 24 Hours (Table) 10/24/21 10/24/21 10/24/21 Range/Units 05:27 09:51 11:24 RBC (4.30-5.90) m/uL Hgb (13.0-17.5) gm/dL Hct (39.0-53.0) % RDW (11.5-15.5) % ABG pH (7.35-7.45) ABG HCO3 (21-25) mmol/L ABG Total CO2 (19-24) mmol/L ABG O2 Saturation (94-97) % Sodium (137-145) mmol/L Chloride (98-107) mmol/L Carbon Dioxide (22-30) mmol/L BUN (9-20) mg/dL Creatinine (0.66-1.25) mg/dL Glucose (74-99) mg/dL POC Glucose (mg/dL) 228 H 234 H (75-99) mg/dL Hemoglobin A1c 12.6 H (4.0-6.0) % Calcium (8.4-10.2) mg/dL Total Bilirubin (0.2-1.3) mg/dL AST (17-59) U/L ALT (4-49) U/L Alkaline Phosphatase (38-126) U/L Total Protein (6.3-8.2) g/dL Albumin (3.5-5.0) g/dL 10/24/21 10/24/21 10/25/21 Range/Units 16:46 21:16 00:13 RBC (4.30-5.90) m/uL Hgb (13.0-17.5) gm/dL Hct (39.0-53.0) % RDW (11.5-15.5) % ABG pH (7.35-7.45) ABG HCO3 (21-25) mmol/L ABG Total CO2 (19-24) mmol/L ABG O2 Saturation (94-97) % Sodium (137-145) mmol/L Chloride (98-107) mmol/L Carbon Dioxide (22-30) mmol/L BUN (9-20) mg/dL Creatinine (0.66-1.25) mg/dL Glucose (74-99) mg/dL POC Glucose (mg/dL) 134 H 148 H 200 H (75-99) mg/dL Hemoglobin A1c (4.0-6.0) % Calcium (8.4-10.2) mg/dL Total Bilirubin (0.2-1.3) mg/dL AST (17-59) U/L ALT (4-49) U/L Alkaline Phosphatase (38-126) U/L Total Protein (6.3-8.2) g/dL Albumin (3.5-5.0) g/dL 10/25/21 10/25/21 10/25/21 Range/Units 00:23 04:31 04:56 RBC 2.52 L (4.30-5.90) m/uL Hgb 7.8 L (13.0-17.5) gm/dL Hct 23.8 L (39.0-53.0) % RDW 18.7 H (11.5-15.5) % ABG pH (7.35-7.45) ABG HCO3 (21-25) mmol/L ABG Total CO2 (19-24) mmol/L ABG O2 Saturation (94-97) % Sodium (137-145) mmol/L Chloride (98-107) mmol/L Carbon Dioxide (22-30) mmol/L BUN (9-20) mg/dL Creatinine (0.66-1.25) mg/dL Glucose (74-99) mg/dL POC Glucose (mg/dL) 176 H 194 H (75-99) mg/dL Hemoglobin A1c (4.0-6.0) % Calcium (8.4-10.2) mg/dL Total Bilirubin (0.2-1.3) mg/dL AST (17-59) U/L ALT (4-49) U/L Alkaline Phosphatase (38-126) U/L Total Protein (6.3-8.2) g/dL Albumin (3.5-5.0) g/dL 10/25/21 10/25/21 10/25/21 Range/Units 04:56 05:48 08:44 RBC (4.30-5.90) m/uL Hgb (13.0-17.5) gm/dL Hct (39.0-53.0) % RDW (11.5-15.5) % ABG pH 7.47 H (7.35-7.45) ABG HCO3 26 H (21-25) mmol/L ABG Total CO2 27 H (19-24) mmol/L ABG O2 Saturation 97.2 H (94-97) % Sodium 133 L (137-145) mmol/L Chloride 96 L (98-107) mmol/L Carbon Dioxide 21 L (22-30) mmol/L BUN 78 H (9-20) mg/dL Creatinine 6.26 H (0.66-1.25) mg/dL Glucose 186 H (74-99) mg/dL POC Glucose (mg/dL) 206 H (75-99) mg/dL Hemoglobin A1c (4.0-6.0) % Calcium 6.8 L (8.4-10.2) mg/dL Total Bilirubin 3.0 H (0.2-1.3) mg/dL AST 68 H (17-59) U/L ALT 117 H (4-49) U/L Alkaline Phosphatase 329 H (38-126) U/L Total Protein 5.2 L (6.3-8.2) g/dL Albumin 2.6 L (3.5-5.0) g/dL Microbiology - Last 24 Hours (Table) 10/22/21 06:00 Blood Culture - Preliminary Blood No Growth after 72 hours 10/23/21 05:33 Blood Culture - Preliminary Blood No Growth after 48 hours 10/21/21 21:24 Gram Stain - Final Gastric Aspirate Sputum Culture - Final Funmilayo albicans 10/21/21 09:15 Blood Culture - Preliminary Blood No Growth after 72 hours Assessment and Plan Plan: Assessment: #1. Acute hypoxic respiratory failure related to acute septic shock and subsequent brief cardiac arrest. Patient was intubated and placed on mechanical ventilator on 10/20/2021 in the intensive care unit, chest x-ray shows minimal patchy atelectasis, no clear evidence of aspiration. Hytrin patient is improved on today's exam on 10/25/2021, FiO2 is currently down to 45%, and PEEP is down to 8 #2. MSSA bacteremia, initially covered with cefepime and vancomycin, currently on nafcillin #3. History of endocarditis and the last ANNABELLE on 10/05/2021 did not show any evidence of vegetation. The source is most likely the right femoral hemodialysis catheter however this is the only vascular access right now #4. Acute cardiac arrest/asystole requiring CPR for about 2-3 minutes with return of spontaneous circulation, suspect related to acute on chronic kidney failure, and acute hyperkalemia #5. Hypotension related to sepsis, recovered and patient is currently off vasopressor support #6. End-stage renal disease on hemodialysis on Friday. He was dialyzed on 10/21/2021 #7. Severe peripheral vascular disease with history of below the knee application on the right #8. Pulmonary embolism, status post EKOS, on maintenance dose Eliquis 2.5 mg twice daily #9. Diabetes mellitus type 2 on insulin pump on an outpatient basis #10. Troponin leak secondary to oxygen mismatch in the setting of acute sepsis #11. Hyperlipidemia #12. Peripheral neuropathy due to diabetes mellitus #13. Chronic anemia #14. Preserved LV systolic function with ejection fraction of 55-60% along with severe pulmonary hypertension #15. Suspect underlying encephalopathy secondary to prolonged hypotension and cardiac arrest Plan: Chest x-ray, labs and ABGs reviewed Chest x-ray shows improved aeration Blood gases show improved oxygenation We'll drop the PEEP down to 8, FiO2 down to 45% Yesterday patient tolerated sedation holiday, however failed spontaneous breathing trial Today his hemodialysis could not be completed related to right groin access site for hemodialysis stopped working Will await for vascular surgery input in terms of possible new hemodialysis access plans Patient did have low-grade fevers in the last 24 hours So far his follow-up blood cultures remain negative since 10/21/2021 ID service is following, he remains on nafcillin for MSSA bacteremia We will proceed with another sedation holiday today and will give patient another spontaneous breathing trial with pressure support of 8 and PEEP of 5 Possible extubation, however in view of lack of a new hemodialysis access, we may have to wait on extubation Renal function is improving Continue oral anticoagulation Continue to follow I performed a history & physical examination of the patient and discussed their management with my nurse practitioner, Samantha Mccormick. I reviewed the nurse practitioner's note and agree with the documented findings and plan of care. Lung sounds are positive for diminished breath sounds throughout the lung martinez. The findings and the impression was discussed with the patient. I att est to the documentation by the nurse practitioner. Time with Patient: Greater than 30
--- NOTE | 2021-10-25 10:31 | US ---
EXAMINATION TYPE: US venous doppler duplex LE LT DATE OF EXAM: 10/25/2021 10:10 AM COMPARISON: US 08/16/21 CLINICAL HISTORY: 46-year-old male assess for thrombus, HD catheter placement. SIDE PERFORMED: Left TECHNIQUE: The lower extremity deep venous system is examined utilizing real time linear array sonog dave with graded compression, doppler sonography and color-flow sonography. FINDINGS: VESSELS IMAGED: Common Femoral Vein Deep Femoral Vein Greater Saphenous Vein * Femoral Vein Popliteal Vein Small Saphenous Vein * Proximal Calf Veins (* superficial vessels) Left Leg: Negative for DVT IMPRESSION: No evidence for DVT within the left lower extremity imaged from the groin to the upper calf.
[2021-10-25 12:19] LABS: Glucose,Whole Blood 213 mg/dL (75-99)
[2021-10-25 12:21] VITALS: TEMP 98.1
--- NOTE | 2021-10-25 13:03 | P.PN ---
Subjective Progress Note Date: 10/25/21 Pt failed SBT today. dialysis catheter stopped working mid session. vascular surgery following for access plan. Family notified, and are considering comfort measures if patient is unable to be extubated today. Objective - Vital Signs Vital signs: Vital Signs Temp 98.1 F 10/25/21 12:14 Pulse 62 10/25/21 12:14 Resp 19 10/25/21 12:14 BP 137/72 10/25/21 12:14 Pulse Ox 95 10/25/21 12:00 Intake & Output 10/24/21 10/25/21 10/25/21 18:59 06:59 18:59 Intake Total 1077.000 897.000 865.92 Output Total 110 310 75 Balance 967.000 587.000 790.92 Weight 108.7 kg 110 kg Intake: IV 340 310 180 .9 kvo 140 110 80 Nafcillin 2 gm In 200 200 100 Dextrose 5% in Water 100 ml @ 50 mls/hr IVPB Q4HR GABY Rx#:[id number] Intake, IV Titration 200.000 100.000 151.92 Amount propofoL 1,000 mg In 200.000 100.000 151.92 Empty Bag 1 bag @ Titrate IV .Q0M GABY Rx#: [id number] Tube Feeding 507 389 234 Hemodialysis 300 Other 30 98 Output: Urine 110 310 75 Hemodialysis 0 Other: Voiding Method Indwelling Catheter Indwelling Catheter Indwelling Catheter # Bowel Movements 1 ABP, PAP, CO, CI - Last Documented Arterial Blood Pressure 95/57 - Exam Gen: intubated, sedated HEENT: normocephalic, atraumatic, Resp: vent: AC 400, FiO2 50%, PEEP 5 CVS: good distal perfusion x 4, : no SPT, no CVAT, loaiza catheter is present MSK: bilateral pitting edema, no clubbing Neuro: non-focal, moving all extremities - Labs CBC & Chem 7: 10/25/21 04:56 10/25/21 04:56 Labs: Abnormal Lab Results - Last 24 Hours (Table) 10/24/21 10/24/21 10/24/21 Range/Units 05:27 16:46 21:16 RBC (4.30-5.90) m/uL Hgb (13.0-17.5) gm/dL Hct (39.0-53.0) % RDW (11.5-15.5) % ABG pH (7.35-7.45) ABG HCO3 (21-25) mmol/L ABG Total CO2 (19-24) mmol/L ABG O2 Saturation (94-97) % Sodium (137-145) mmol/L Chloride (98-107) mmol/L Carbon Dioxide (22-30) mmol/L BUN (9-20) mg/dL Creatinine (0.66-1.25) mg/dL Glucose (74-99) mg/dL POC Glucose (mg/dL) 134 H 148 H (75-99) mg/dL Hemoglobin A1c 12.6 H (4.0-6.0) % Calcium (8.4-10.2) mg/dL Total Bilirubin (0.2-1.3) mg/dL AST (17-59) U/L ALT (4-49) U/L Alkaline Phosphatase (38-126) U/L Total Protein (6.3-8.2) g/dL Albumin (3.5-5.0) g/dL 10/25/21 10/25/21 10/25/21 Range/Units 00:13 00:23 04:31 RBC (4.30-5.90) m/uL Hgb (13.0-17.5) gm/dL Hct (39.0-53.0) % RDW (11.5-15.5) % ABG pH (7.35-7.45) ABG HCO3 (21-25) mmol/L ABG Total CO2 (19-24) mmol/L ABG O2 Saturation (94-97) % Sodium (137-145) mmol/L Chloride (98-107) mmol/L Carbon Dioxide (22-30) mmol/L BUN (9-20) mg/dL Creatinine (0.66-1.25) mg/dL Glucose (74-99) mg/dL POC Glucose (mg/dL) 200 H 176 H 194 H (75-99) mg/dL Hemoglobin A1c (4.0-6.0) % Calcium (8.4-10.2) mg/dL Total Bilirubin (0.2-1.3) mg/dL AST (17-59) U/L ALT (4-49) U/L Alkaline Phosphatase (38-126) U/L Total Protein (6.3-8.2) g/dL Albumin (3.5-5.0) g/dL 10/25/21 10/25/21 10/25/21 Range/Units 04:56 04:56 05:48 RBC 2.52 L (4.30-5.90) m/uL Hgb 7.8 L (13.0-17.5) gm/dL Hct 23.8 L (39.0-53.0) % RDW 18.7 H (11.5-15.5) % ABG pH 7.47 H (7.35-7.45) ABG HCO3 26 H (21-25) mmol/L ABG Total CO2 27 H (19-24) mmol/L ABG O2 Saturation 97.2 H (94-97) % Sodium 133 L (137-145) mmol/L Chloride 96 L (98-107) mmol/L Carbon Dioxide 21 L (22-30) mmol/L BUN 78 H (9-20) mg/dL Creatinine 6.26 H (0.66-1.25) mg/dL Glucose 186 H (74-99) mg/dL POC Glucose (mg/dL) (75-99) mg/dL Hemoglobin A1c (4.0-6.0) % Calcium 6.8 L (8.4-10.2) mg/dL Total Bilirubin 3.0 H (0.2-1.3) mg/dL AST 68 H (17-59) U/L ALT 117 H (4-49) U/L Alkaline Phosphatase 329 H (38-126) U/L Total Protein 5.2 L (6.3-8.2) g/dL Albumin 2.6 L (3.5-5.0) g/dL 10/25/21 10/25/21 Range/Units 08:44 12:17 RBC (4.30-5.90) m/uL Hgb (13.0-17.5) gm/dL Hct (39.0-53.0) % RDW (11.5-15.5) % ABG pH (7.35-7.45) ABG HCO3 (21-25) mmol/L ABG Total CO2 (19-24) mmol/L ABG O2 Saturation (94-97) % Sodium (137-145) mmol/L Chloride (98-107) mmol/L Carbon Dioxide (22-30) mmol/L BUN (9-20) mg/dL Creatinine (0.66-1.25) mg/dL Glucose (74-99) mg/dL POC Glucose (mg/dL) 206 H 213 H (75-99) mg/dL Hemoglobin A1c (4.0-6.0) % Calcium (8.4-10.2) mg/dL Total Bilirubin (0.2-1.3) mg/dL AST (17-59) U/L ALT (4-49) U/L Alkaline Phosphatase (38-126) U/L Total Protein (6.3-8.2) g/dL Albumin (3.5-5.0) g/dL Microbiology - Last 24 Hours (Table) 10/21/21 09:15 Blood Culture - Preliminary Blood No Growth after 96 hours 10/22/21 06:00 Blood Culture - Preliminary Blood No Growth after 72 hours 10/23/21 05:33 Blood Culture - Preliminary Blood No Growth after 48 hours 10/21/21 21:24 Gram Stain - Final Gastric Aspirate Sputum Culture - Final Funmilayo albicans Assessment and Plan Assessment: MSSA bacteremia Septic shock Lactic acidosis Acute hypoxic respiratory failure Asystole arrest with Rosc Acute encephalopathy, metabolic and secondary to infection line-await infectious disease recommendations - completed cefazolin 9 days prior to admission -Await repeat blood cultures = NGTD x 48 hours -Vent management per pulmonary - Recent ANNABELLE and TTE without vegetations - ID recs, Naficillin -Vascular surgery to exchange dialysis catheter if able End-stage renal disease on hemodialysis-T//Fri Anemia of chronic renal disease Hyperkalemia Metabolic acidosis - HD today with 1 unit pRBC - D/W Nephrology Diabetes mellitus type 2 Maintained on insulin pump as an outpatient - accucehck - Levemir and SSI -Hopefully improving glycemic control will improve his acidosis and hyperkalemia -Hemoglobin A1c 7.2 on 08/16/21 Elevated troponin -Likely reflective of end-stage renal disease -Cardiology recommendations appreciated Thromobocytopenia - likely reactive - follow CBC Chronic Pulmonary Embolsim with hx of Massive pulmonary embolism treated with EKOS 7 months ago - Anne GERD - PPI Dyslipidemia - not chronically on meds Seizure disorder DVT prophylaxis: eliquis Discussed with: patient, nursing, son Anticipated discharge date: undetermined Anticipated discharge place: undetermined
[2021-10-25] MEDS ORDERED: MORPHINE SULFATE 4 MG/ML SYRINGE IVP PRN (15:27)
[2021-10-25] MEDS ORDERED: LORazepam 2 MG/ML INJ IV PRN (15:29)
[2021-10-25 16:39] VITALS: BP 155/80; PULSE 85; RESP 16
--- NOTE | 2021-10-25 18:41 | P.PN ---
Progress Note - Text Progress Note Date: 10/25/21 I spent 20 minutes of face to face time with the patient and his two children in light of his ESRD without vascular access options for dialysis. Patient and children understand his overall condition and poor prognosis. Patient himself has indicated that he would like to be made comfortable, and would no longer like any aggressive interventions. He would like to be disconnected from excessive tubes and unneeded lines and would like medications geared toward comfort. In respect to patients wishes, we consulted hospice and transitioned his care to comfort measures.
--- NOTE | 2021-10-25 18:44 | P.DS ---
Providers Date of admission: 10/18/21 09:42 Expected date of discharge: 10/25/21 Attending physician: Cecily Abdalla DO Consults: 10/18/21 09:45 Consult Physician Urgent Consulting Provider: Fifi Quintero Consult Reason/Comments: ESRD on HD Do you want consulting provider notified?: Yes 10/18/21 12:40 Consult Physician Urgent Consulting Provider: [facility] Consult Reason/Comments: elevated trop, hx endocarditis Do you want consulting provider notified?: Yes 10/18/21 12:41 Consult Physician Urgent Consulting Provider: Elkin Arndt Consult Reason/Comments: sepsis, hx endocarditis/bacteremia Do you want consulting provider notified?: Already Contacted 10/18/21 13:06 Consult Physician Stat Consulting Provider: Anisha Celeste Consult Reason/Comments: acute hypotension, severe sepsis, esrd on hd Do you want consulting provider notified?: Already Contacted 10/24/21 08:35 Consult Physician Urgent Consulting Provider: Bernard Turner Consult Reason/Comments: exchange HD catheter r/t bacterimia Do you want consulting provider notified?: Yes Primary care physician: Baldev Ayers MD Hospital Course: MSSA bacteremia Septic shock Lactic acidosis Acute hypoxic respiratory failure Asystole arrest with Rosc Acute encephalopathy, metabolic and secondary to infection line-await infectious disease recommendations End-stage renal disease on hemodialysis-T//Fri Anemia of chronic renal disease Hyperkalemia Metabolic acidosis Diabetes mellitus type 2 Maintained on insulin pump as an outpatient Chronic Pulmonary Embolsim with hx of Massive pulmonary embolism treated with EKOS 7 months ago GERD Dyslipidemia Seizure disorder -Patient was treated for 7 days for MSSA bacteremia, and had hospital course complicated by asystole arrest with ROSC warranting intubation. He was successfully extubated today to nasal cannula. His co-morbidities are complex and include ESRD with very limited vascular access options. However, patient indicated that he would no longer like to pursue treatment and would prefer to be made comfortable as he passes. He was transitioned to comfort care today w ith his family at bedside. I spent 35 minutes coordinating this complex discharge Patient Condition at Discharge: Critical Plan - Discharge Summary Discharge Rx Participant: No New Discharge Prescriptions: No Action Ergocalciferol [Vitamin D2 (DRISDOL)] 50,000 unit PO Q14D Dialyvite 1 tab PO DAILY Timolol [Betimol 0.5% Ophth Soln] 1 drop RIGHT EYE BID Omeprazole [PriLOSEC] 20 mg PO BID INSULIN LISPRO (For Pump) [humaLOG (For Pump)] 0.01 units SQ-PUMP CONTINUOUS Furosemide [Lasix] 80 mg PO BID oxyCODONE-APAP 10-325MG [Percocet 10-325 mg] 1 tab PO Q6H Pregabalin [Lyrica] 200 mg PO TID Ondansetron HCl [Zofran] 4 mg PO BID Calcium Acetate [PhosLo] 667 mg PO AC-LUNCH Dulaglutide [Trulicity] 1.5 mg SQ WE Aspirin EC [Ecotrin Low Dose] 81 mg PO DAILY Vilazodone HCl [Viibryd] 40 mg PO PC-SUPPER Sennosides/Docusate Sodium [Senna Plus 8.6-50 mg Tablet] 1 tab PO BID PRN PRN Reason: Constipation diazePAM [Valium] 2 mg PO TID PRN #6 tab PRN Reason: Spasms Midodrine HCl [ProAmatine] 10 mg PO TID Metoclopramide [Reglan] 5 mg PO AC-TID traZODone HCL [Desyrel] 100 mg PO HS Heparin 1000 Units/Ml 6,400 units SQ MOTUTHFRSA Apixaban [Eliquis] 5 mg PO BID Discharge Medication List Dialyvite 1 tab PO DAILY 01/31/17 [History] Ergocalciferol [Vitamin D2 (DRISDOL)] 50,000 unit PO Q14D 01/31/17 [History] INSULIN LISPRO (For Pump) [humaLOG (For Pump)] 0.01 units SQ-PUMP CONTINUOUS 01/31/17 [History] Omeprazole [PriLOSEC] 20 mg PO BID 01/31/17 [History] Timolol [Betimol 0.5% Ophth Soln] 1 drop RIGHT EYE BID 01/31/17 [History] Furosemide [Lasix] 80 mg PO BID 10/01/20 [History] Pregabalin [Lyrica] 200 mg PO TID 10/01/20 [History] oxyCODONE-APAP 10-325MG [Percocet 10-325 mg] 1 tab PO Q6H 10/01/20 [History] Metoclopramide [Reglan] 5 mg PO AC-TID 03/16/21 [History] Midodrine HCl [ProAmatine] 10 mg PO TID 03/16/21 [History] Ondansetron HCl [Zofran] 4 mg PO BID 03/16/21 [History] Calcium Acetate [PhosLo] 667 mg PO AC-LUNCH 05/14/21 [History] Aspirin EC [Ecotrin Low Dose] 81 mg PO DAILY 08/06/21 [History] Dulaglutide [Trulicity] 1.5 mg SQ WE 08/06/21 [History] Heparin 1000 Units/Ml 6,400 units SQ MOTUTHFRSA 08/06/21 [History] Sennosides/Docusate Sodium [Senna Plus 8.6-50 mg Tablet] 1 tab PO BID PRN 08/06/21 [History] Vilazodone HCl [Viibryd] 40 mg PO PC-SUPPER 08/06/21 [History] traZODone HCL [Desyrel] 100 mg PO HS 08/06/21 [History] diazePAM [Valium] 2 mg PO TID PRN #6 tab 08/23/21 [Rx] Apixaban [Eliquis] 5 mg PO BID 10/18/21 [History] Follow up Appointment(s)/Referral(s): Baldev Ayers MD [Primary Care Provider] - 1-2 days Discharge Disposition: [facility]
== END 2021-10-25 16:44 | disposition hospice, inpatient (51) | DRG 280 ==
LOC: EC 07:15 → 3SCARD 09:42 → 2SICU 12:15
PROVIDERS: ADMIT Internal Medicine; ATTEND Internal Medicine
PROC: 0BH17EZ Insertion of Endotracheal Airway into Trachea, Via Natural or Artificial Opening (ICD-10-PCS; 2021-10-18)
PROC: 3E03317 Introduction of Other Thrombolytic into Peripheral Vein, Percutaneous Approach (ICD-10-PCS; 2021-10-18)
PROC: 3E033XZ Introduction of Vasopressor into Peripheral Vein, Percutaneous Approach (ICD-10-PCS; 2021-10-18)
PROC: 5A12012 Performance of Cardiac Output, Single, Manual (ICD-10-PCS; principal; 2021-10-18 21:40)
PROC: 5A1955Z Respiratory Ventilation, Greater than 96 Consecutive Hours (ICD-10-PCS; 2021-10-18 21:40)
DX: T80.211A Bloodstream infection due to central venous catheter, initial encounter (principal); A41.01 Sepsis due to Methicillin susceptible Staphylococcus aureus; I21.A1 Myocardial infarction type 2; G93.41 Metabolic encephalopathy; I26.99 Other pulmonary embolism without acute cor pulmonale; I46.9 Cardiac arrest, cause unspecified; J18.9 Pneumonia, unspecified organism; J96.01 Acute respiratory failure with hypoxia; K72.00 Acute and subacute hepatic failure without coma; N18.6 End stage renal disease; R65.21 Severe sepsis with septic shock; E87.2 Acidosis; I12.0 Hypertensive chronic kidney disease with stage 5 chronic kidney disease or end stage renal disease; I82.91 Chronic embolism and thrombosis of unspecified vein; Z99.11 Dependence on respirator [ventilator] status; B96.89 Other specified bacterial agents as the cause of diseases classified elsewhere; D63.1 Anemia in chronic kidney disease; E10.22 Type 1 diabetes mellitus with diabetic chronic kidney disease; E10.42 Type 1 diabetes mellitus with diabetic polyneuropathy; E10.51 Type 1 diabetes mellitus with diabetic peripheral angiopathy without gangrene; E10.65 Type 1 diabetes mellitus with hyperglycemia; E66.9 Obesity, unspecified; E78.5 Hyperlipidemia, unspecified; E87.5 Hyperkalemia; E87.70 Fluid overload, unspecified; F32.A Depression, unspecified; F41.9 Anxiety disorder, unspecified; G40.909 Epilepsy, unspecified, not intractable, without status epilepticus; I07.1 Rheumatic tricuspid insufficiency; I27.20 Pulmonary hypertension, unspecified; K21.9 Gastro-esophageal reflux disease without esophagitis; Y84.8 Other medical procedures as the cause of abnormal reaction of the patient, or of later complication, without mention of misadventure at the time of the procedure; Z20.822 Contact with and (suspected) exposure to COVID-19; Z51.5 Encounter for palliative care; Z66 Do not resuscitate; Z79.01 Long term (current) use of anticoagulants; Z79.4 Long term (current) use of insulin; Z79.82 Long term (current) use of aspirin; Z79.899 Other long term (current) drug therapy; Z86.711 Personal history of pulmonary embolism; Z86.79 Personal history of other diseases of the circulatory system; Z89.511 Acquired absence of right leg below knee; Z89.512 Acquired absence of left leg below knee; Z89.611 Acquired absence of right leg above knee; Z96.41 Presence of insulin pump (external) (internal); Z99.2 Dependence on renal dialysis
CPT/HCPCS: 36410; 36415; 36600; 71045; 71275; 76705; 76937; 80048; 80053; 80202; 82009; 82803; 82805; 83036; 83605; 83615; 83735; 83880; 84100; 84145; 84484; 85025; 85027; 85379; 85610; 85730; 86850; 86900; 86901; 86920; 87040; 87070; 87077; 87186; 87205; 87635; 90935; 92950; 93005; 93306; 93970; 94002; 94003; 94640; 96361; 96374; 99291

== ENCOUNTER 2021-10-25 16:28 | Inpatient (IN) | payer MEDICAID ==
[2021-10-25] MEDS ORDERED: LORazepam 2 MG/ML INJ IV PRN (16:31)
[2021-10-25] MEDS ORDERED: ONDANSETRON 4 MG/2 ML VIAL IVP PRN (16:31)
[2021-10-25] MEDS ORDERED: GLYCOPYRROLATE 0.2 MG/ML 2 ML VIAL IVP PRN (16:31)
[2021-10-25] MEDS ORDERED: ACETAMINOPHEN SUPPOSITORY 650 MG SUPP RECTAL PRN (16:31)
[2021-10-25] MEDS ORDERED: ATROPINE OPHTH SOLN 1% 5ML BTL SUBLINGUAL PRN (16:31)
[2021-10-25] MEDS ORDERED: HALOPERIDOL LACTATE 5 MG/ML 1 ML VIAL IM PRN (16:31)
[2021-10-25] MEDS ORDERED: SCOPOLAMINE 1.5MG/72HR PATCH TRANSDERM SCH (17:00)
[2021-10-25] MEDS: MORPHINE SULFATE 2 MG/ML SYRINGE IV PRN ×3 (17:04→17:59)
[2021-10-25] MEDS: MORPHINE SULFATE (100 MG/2 ML) 100 MG in SODIUM CHLORIDE 0.9% 100 ML IV SCH (17:20)
[2021-10-25 18:24] VITALS: BP 139/83; PULSE 80
[2021-10-26] MEDS: MORPHINE SULFATE (100 MG/2 ML) 100 MG in SODIUM CHLORIDE 0.9% 100 ML IV SCH ×3 (00:20→16:39)
[2021-10-26 11:08] VITALS: RESP 4
--- NOTE | 2021-10-26 12:41 | P.HPIM ---
History of Present Illness H&P Date: 10/26/21 Chief Complaint: Hospice Patient was treated for 7 days for MSSA bacteremia, and had hospital course complicated by asystole arrest with ROSC warranting intubation. He was successfully extubated today to nasal cannula. His co-morbidities are complex and include ESRD with very limited vascular access options. However, patient indicated that he would no longer like to pursue treatment and would prefer to be made comfortable as he passes. He was transitioned to comfort care on 10/25 with his family at bedside. Review of Systems Cannot be completed due to patient medical condition. Past Medical History Past Medical History: Diabetes Mellitus, Dialysis, GERD/Reflux, Hyperlipidemia, Pulmonary Embolus (PE), Renal Disease, Seizure Disorder, Syncope Additional Past Medical History / Comment(s): constipation, anemia, peripheral vascular disease, diabetes mellitus on insulin pump for blood sugar control, previous history of massive pulmonary embolism - ECOS, hyperlipidemia, HD at home History of Any Multi-Drug Resistant Organisms: None Reported Additional Past Surgical History / Comment(s): tom cataract, peritoneal dialysis catheter rt side, ECOS 03/19/21, [facility] HD site left chest, right forearm fistula - no longer active, left arm fistula - no longer active, right chest HD temp. HD cath., RBKA Past Anesthesia/Blood Transfusion Reactions: No Reported Reaction Past Psychological History: Anxiety, Depression Smoking Status: Never smoker Past Alcohol Use History: None Reported Past Drug Use History: None Reported - Past Family History Mother Family Medical History: Cancer Father Family Medical History: Dementia Medications and Allergies Home Medications Medication Instructions Recorded Confirmed Type Dialyvite 1 tab PO DAILY 01/31/17 10/25/21 History Ergocalciferol [Vitamin D2 50,000 unit PO Q14D 01/31/17 10/25/21 History (DRISDOL)] INSULIN LISPRO (For Pump) [humaLOG 0.01 units SQ-PUMP CONTINUOUS 01/31/17 10/25/21 History (For Pump)] Omeprazole [PriLOSEC] 20 mg PO BID 01/31/17 10/25/21 History Timolol [Betimol 0.5% Ophth Soln] 1 drop RIGHT EYE BID 01/31/17 10/25/21 History Furosemide [Lasix] 80 mg PO BID 10/01/20 10/25/21 History Pregabalin [Lyrica] 200 mg PO TID 10/01/20 10/25/21 History oxyCODONE-APAP 10-325MG [Percocet 1 tab PO Q6H 10/01/20 10/25/21 History 10-325 mg] Metoclopramide [Reglan] 5 mg PO AC-TID 03/16/21 10/25/21 History Midodrine HCl [ProAmatine] 10 mg PO TID 03/16/21 10/25/21 History Ondansetron HCl [Zofran] 4 mg PO BID 03/16/21 10/25/21 History Calcium Acetate [PhosLo] 667 mg PO AC-LUNCH 05/14/21 10/25/21 History Aspirin EC [Ecotrin Low Dose] 81 mg PO DAILY 08/06/21 10/25/21 History Dulaglutide [Trulicity] 1.5 mg SQ WE 08/06/21 10/25/21 History Heparin 1000 Units/Ml 6,400 units SQ MOTUTHFRSA 08/06/21 10/25/21 History Sennosides/Docusate Sodium [Senna 1 tab PO BID PRN 08/06/21 10/25/21 History Plus 8.6-50 mg Tablet] Vilazodone HCl [Viibryd] 40 mg PO PC-SUPPER 08/06/21 10/25/21 History traZODone HCL [Desyrel] 100 mg PO HS 08/06/21 10/25/21 History diazePAM [Valium] 2 mg PO TID PRN #6 tab 08/23/21 10/25/21 Rx Apixaban [Eliquis] 5 mg PO BID 10/18/21 10/25/21 History Allergies Allergy/AdvReac Type Severity Reaction Status Date / Time No Known Allergies Allergy Verified 10/18/21 09:36 Physical Exam Osteopathic Statement: *. No significant issues noted on an osteopathic structural exam other than those noted in the History and Physical/Consult. Vitals: Vital Signs Pulse Resp BP Pulse Ox 10/26/21 11:08 4 L 10/26/21 08:10 13 10/25/21 18:00 80 13 139/83 95 10/25/21 17:19 80 96 Intake and Output 10/25/21 10/26/21 10/26/21 22:59 06:59 14:59 Intake Total 47.769 68.34 101.592 Balance 47.769 68.34 101.592 Intake: IV 40 .9ns 40 Intake, IV Titration 7.769 68.34 101.592 Amount Morphine Sulfate (100 mg/ 7.769 68.34 101.592 2 ml) 100 mg In Sodium Chloride 0.9% 100 ml @ 1 MG/HR 1.02 mls/hr IV . Q24H [facility] Rx#:[id number] Other: Voiding Method Indwelling Catheter # Bowel Movements 0 Weight 110 kg Gen: In no distress HEENT: normocephalic, atraumatic, dry mucous membranes Resp: Agonal breathing : loaiza catheter is present MSK: Bilateral pitting edema, right AKA Assessment and Plan Assessment: End-of-life care -Morphine drip for air hunger -Ativan when necessary for anxiety -Loaiza catheter -Hospice consult -Atropine when necessary for secretions -Scopolamine patch
--- NOTE | 2021-10-27 12:28 | P.DS ---
Providers Date of admission: 10/25/21 16:58 Expected date of discharge: 10/26/21 Attending physician: Keerthi Rodriguez MD Primary care physician: Stated None Hospital Course: End-of-life care -Morphine drip for air hunger -Ativan when necessary for anxiety -Pereira catheter -Hospice consult -Atropine when necessary for secretions -Scopolamine patch Patient on 10/26 due to complications of ESRD. Plan - Discharge Summary New Discharge Prescriptions: No Action Ergocalciferol [Vitamin D2 (DRISDOL)] 50,000 unit PO Q14D Dialyvite 1 tab PO DAILY Timolol [Betimol 0.5% Ophth Soln] 1 drop RIGHT EYE BID Omeprazole [PriLOSEC] 20 mg PO BID INSULIN LISPRO (For Pump) [humaLOG (For Pump)] 0.01 units SQ-PUMP CONTINUOUS Furosemide [Lasix] 80 mg PO BID oxyCODONE-APAP 10-325MG [Percocet 10-325 mg] 1 tab PO Q6H Pregabalin [Lyrica] 200 mg PO TID Ondansetron HCl [Zofran] 4 mg PO BID Calcium Acetate [PhosLo] 667 mg PO AC-LUNCH Dulaglutide [Trulicity] 1.5 mg SQ WE Aspirin EC [Ecotrin Low Dose] 81 mg PO DAILY Vilazodone HCl [Viibryd] 40 mg PO PC-SUPPER Sennosides/Docusate Sodium [Senna Plus 8.6-50 mg Tablet] 1 tab PO BID PRN PRN Reason: Constipation diazePAM [Valium] 2 mg PO TID PRN #6 tab PRN Reason: Spasms Midodrine HCl [ProAmatine] 10 mg PO TID Metoclopramide [Reglan] 5 mg PO AC-TID traZODone HCL [Desyrel] 100 mg PO HS Heparin 1000 Units/Ml 6,400 units SQ MOTUTHFRSA Apixaban [Eliquis] 5 mg PO BID Discharge Medication List Dialyvite 1 tab PO DAILY 01/31/17 [History] Ergocalciferol [Vitamin D2 (DRISDOL)] 50,000 unit PO Q14D 01/31/17 [History] INSULIN LISPRO (For Pump) [humaLOG (For Pump)] 0.01 units SQ-PUMP CONTINUOUS 01/31/17 [History] Omeprazole [PriLOSEC] 20 mg PO BID 01/31/17 [History] Timolol [Betimol 0.5% Ophth Soln] 1 drop RIGHT EYE BID 01/31/17 [History] Furosemide [Lasix] 80 mg PO BID 10/01/20 [History] Pregabalin [Lyrica] 200 mg PO TID 10/01/20 [History] oxyCODONE-APAP 10-325MG [Percocet 10-325 mg] 1 tab PO Q6H 10/01/20 [History] Metoclopramide [Reglan] 5 mg PO AC-TID 03/16/21 [History] Midodrine HCl [ProAmatine] 10 mg PO TID 03/16/21 [History] Ondansetron HCl [Zofran] 4 mg PO BID 03/16/21 [History] Calcium Acetate [PhosLo] 667 mg PO AC-LUNCH 05/14/21 [History] Aspirin EC [Ecotrin Low Dose] 81 mg PO DAILY 08/06/21 [History] Dulaglutide [Trulicity] 1.5 mg SQ WE 08/06/21 [History] Heparin 1000 Units/Ml 6,400 units SQ MOTUTHFRSA 08/06/21 [History] Sennosides/Docusate Sodium [Senna Plus 8.6-50 mg Tablet] 1 tab PO BID PRN 08/06/21 [History] Vilazodone HCl [Viibryd] 40 mg PO PC-SUPPER 08/06/21 [History] traZODone HCL [Desyrel] 100 mg PO HS 08/06/21 [History] diazePAM [Valium] 2 mg PO TID PRN #6 tab 08/23/21 [Rx] Apixaban [Eliquis] 5 mg PO BID 10/18/21 [History] Discharge Disposition: - Preliminary Cause of Preliminary Cause of : ESRD
== END 2021-10-26 21:11 | disposition expired | DRG 951 ==
LOC: 2SICU 16:58 → 5NMEDONC 19:42
PROVIDERS: ADMIT Internal Medicine; ATTEND Internal Medicine
DX: Z51.5 Encounter for palliative care (principal); N18.6 End stage renal disease; E11.22 Type 2 diabetes mellitus with diabetic chronic kidney disease; E78.5 Hyperlipidemia, unspecified; F32.A Depression, unspecified; F41.9 Anxiety disorder, unspecified; G40.909 Epilepsy, unspecified, not intractable, without status epilepticus; Z79.01 Long term (current) use of anticoagulants; Z79.4 Long term (current) use of insulin; Z79.82 Long term (current) use of aspirin; Z96.41 Presence of insulin pump (external) (internal); Z86.74 Personal history of sudden cardiac arrest; Z86.711 Personal history of pulmonary embolism; Z79.899 Other long term (current) drug therapy